=== PATIENT | female | born 1970 | race Caucasian/White ===

== ENCOUNTER → 2017-12-17 07:15 | Outpatient (CLI) | payer BC, SELFPAY ==
--- NOTE | 2017-12-17 07:15 | DT_ITS ---
This patient was seen during an EMR downtime December 15, 2017 - December 22, 2017. This patient may have a combination of paper and electronic documentation or all paper documentation. All documentation is viewable within the e-chart portion of [facility] for each patient visit.
[2017-12-20 11:05] LABS: Mucous, Urine 0 SEEN /hpf (<or=2+); Red Blood Cells-Urine 0 SEEN /hpf (0-5)
[2017-12-20 11:11] LABS: Bacteria RARE /hpf (None Seen); Color, Urine Yellow (Yellow); Glucose, Dipstick NEGATIVE (Normal); Ketone-Dipstick Negative (Negative); Leukocyte Esterase-Dipstick 500 /ul (Negative); Nitrite-Dipstick Negative (Negative); Occult Blood-Urine 10 /ul (Negative); Protein-Dipstick Negative (Negative); Squamous Epithelial Cells - UA 0-5 SEEN /hpf (5-10); Urine Bilirubin Dipstick 1 mg/dL (Negative); Urine Clarity Clear (Clear); Urine Urobilinogen Normal (Normal); White Blood Cells 0-5 SEEN /hpf (0-5)
[2017-12-22 12:36] LABS: Vitamin D,25 Hydroxy 44.5 ng/mL (29.95-100.01)
[2017-12-22 14:46] LABS: Hemoglobin 13.5 g/dl (12.0-15.0); Mean Corp Hgb Conc 32.1 g/gl (32-36); Mean Corpuscular Hgb 31.5 pg (27.0-32.0); Mean Corpuscular Volume 97.9 fL (81-99); Red Blood Count 4.29 M/mm3 (4.2-5.4); White Blood Count 5.7 K/mm3 (4.4-11.0)
[2017-12-22 14:47] LABS: Mean Platelet Vol. 10.8 fl (6.2-12.0); Platelet Count 275 K/mm3 (150-450); RBC Distribution Width CV 13.1 % (11.6-14.6); RBC Distribution Width SD 46.6 fl (35.1-43.9); Scan Indicated on CBC? Y/N NO
[2017-12-22 14:48] LABS: ALB/GLOB Ratio 1.1 RATIO (0.9-2.4); AST(SGOT) 26 U/L (15-37); Alanine Aminotransfer ALT/SGPT 25 U/L (13-56); Albumin, Serum 4.3 g/dL (3.2-5.0); Alkaline Phosphatase 57 U/L (45-117); Anion Gap 8 (5-15); BUN 17 mg/dL (7-18); Calcium,Total 9.3 mg/dL (8.5-10.1); Chloride 102 mmol/L (98-107); Cholesterol 205 mg/dL (200); Creatinine, Serum 0.81 mg/dL (0.55-1.02); EST Glomerular Filtration Rate 80 mL/min (>60); Est Glom Filt Rate - Afr Amer 97 mL/min (>60); Globulin 3.9 g/dL (2.2-4.2); Glucose 78 mg/dL (74-106); High Density Lipoprotein 90 mg/dL; Potassium 3.7 mmol/L (3.5-5.1); Protein, Total 8.2 g/dL (6.4-8.2); Sodium Level 142 mmol/L (136-145); Thyroid Stim Hormone (TSH) 2.18 uIU/mL (0.358-3.74); Triglycerides 81 mg/dL; Very Low Density Lipoprotein 16 mg/dL (5-40)
== END ==
PROVIDERS: Family Provider Internal Medicine; PCP Internal Medicine; Visit Provider Internal Medicine
DX: I10 Essential (primary) hypertension (principal); E78.5 Hyperlipidemia, unspecified; E55.9 Vitamin D deficiency, unspecified
CPT/HCPCS: 36415; 80053; 80061; 81001; 82043; 82306; 82570; 84443; 85027

== ENCOUNTER → 2018-04-22 08:11 | Outpatient (CLI) | payer BC, SELFPAY | PROVIDERS: Family Provider Internal Medicine; PCP Internal Medicine; Referring Provider Internal Medicine Gastroenterology; Visit Provider Internal Medicine Gastroenterology | DX: K51.90 Ulcerative colitis, unspecified, without complications (principal) | CPT/HCPCS: 36415; 86480 ==

== ENCOUNTER → 2018-05-18 07:21 | Outpatient (CLI) | payer BC, SELFPAY | PROVIDERS: Family Provider Internal Medicine; PCP Internal Medicine; Referring Provider Internal Medicine Gastroenterology; Visit Provider Internal Medicine Gastroenterology | DX: K51.90 Ulcerative colitis, unspecified, without complications (principal) ==

== ENCOUNTER → 2018-05-26 12:39 | Outpatient (CLI) | payer BC, SELFPAY | PROVIDERS: Family Provider Internal Medicine; PCP Internal Medicine; Referring Provider Internal Medicine Gastroenterology; Visit Provider Internal Medicine Gastroenterology | DX: K51.90 Ulcerative colitis, unspecified, without complications (principal); R19.7 Diarrhea, unspecified ==

== ENCOUNTER → 2018-05-27 07:42 | Outpatient (CLI) | payer BC, SELFPAY | PROVIDERS: Family Provider Internal Medicine; PCP Internal Medicine; Referring Provider Internal Medicine Gastroenterology; Visit Provider Internal Medicine Gastroenterology | DX: K51.90 Ulcerative colitis, unspecified, without complications (principal); R19.7 Diarrhea, unspecified | CPT/HCPCS: 87493 ==

== ENCOUNTER → 2018-07-29 11:07 | Outpatient (CLI) | payer BC, SELFPAY ==
[2018-07-31 09:40] LABS: HPV Reflexed? NOT INDICATED
--- OUTSIDE RECORDS SUMMARY | 2018-10-03 07:04 | XMS RPT_ITS ---
:1970 Author Organization [facility] Support Name Relationship Address Phone GENIE Unavailable [address] + [place] [address] MARGARITA PILLAI Unavailable [address] + [place] [address] KRISHNA VILLAGRAN Unavailable [address] + [place] [address] GENIE Unavailable [address] + [place] [address] MARGARITA PILLAI Unavailable [address] + [place] [address] KRISHNA VILLAGRAN Unavailable [address] + [place] [address] GENIE Unavailable [address] + [place] [address] MARGARITA PILLAI Unavailable [address] + [place] [address] KRISHNA VILLAGRAN Unavailable [address] + [place] [address] GENIE Unavailable [address] + [place] [address] MARGARITA PILLAI Unavailable [address] + [place] [address] KRISHNA VILLAGRAN Unavailable [address] + [place] [address] GENIE Unavailable [address] + [place] [address] MARGARITA PILLAI Unavailable [address] + [place] [address] KRISHNA VILLAGRAN Unavailable [address] + [place] [address] GENIE Unavailable [address] + [place] [address] MARGARITA PILLAI Unavailable [address] + [place] [address] KRISHNA VILLAGRAN Unavailable [address] + [place] [address] GENIE Unavailable [address] + [place] [address] MARGARITA PILLAI Unavailable [address] + [place] [address] KRISHNA VILLAGRAN Unavailable [address] + [place] [address] Care Team Providers Name Role Phone Sanju DO, Gloria Attending Unavailable Sanju DO, Gloria Referring Unavailable Sanju DO, Gloria Consulting Unavailable Janelle Giles Attending Unavailable Jabour, Juan José Attending Unavailable Jabour, Vincent Referring Unavailable Sanju, Gloria Primary Care Unavailable Sanju, Gloria Attending Unavailable Sanju, Gloria Referring Unavailable Sanju, Gloria Primary Care Unavailable Jabour, Vincent Attending Unavailable Sanju, Gloria Primary Care Unavailable Jabour, Vincent Referring Unavailable Jabour, Vincent Attending Unavailable Jabour, Vincent Referring Unavailable Sanju, Gloria Primary Care Unavailable Jabour, Vincent Attending Unavailable Sanju, Gloria Primary Care Unavailable Jabour, Vincent Referring Unavailable Jabour, Vincent Attending Unavailable Jabour, Vincent Referring Unavailable Sanju, Gloria Primary Care Unavailable PROBLEMS PROBLEMS DATE TYPE CONDITION / CODE ATTENDING STATUS SOURCE 07/31/2018 Unknown 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, Community unspecified, Hospital without Repository complications / K51.90(ICD-10) 07/29/2018 Unknown Z12.4 - Encounter Janelle Giles for screening for Community malignant neoplasm [facility] cervix / Repository Z12.4(ICD-10) 05/27/2018 Unknown R19.7 - Diarrhea, Juan José Nam Active Jayjay unspecified / Community R19.7(ICD-10) Hospital Repository 01/07/2018 Unknown I10 - Essential Sanju, Active [place] (primary) Gloria Community hypertension / Hospital I10(ICD-10) Repository PROCEDURES PROCEDURES No Procedure Records FoundRESULTS RESULTS MISCELLANEOUS LAB Collected: 07/31/2018 Status: F Source: JAYJAY PROCEDURE 2:09 PM [facility] REPOSITORY Order Comment: Test(s) Ordered: ANTONINA TPMT ENZYME TYPE CODE TESTS RESULT OUT OF RANGE REFERENCE UNITS LAB L801.1541 Normal [facility] Result Comment: Scanned image report available in EMR Performed By: #### L801.1541 #### [facility] [address] [place], [address] PAP I-G W/RFX HRHPV Collected: 07/29/2018 Status: F Source: JAYJAY 9:15 AM [facility] REPOSITORY Order Comment: CYTOLOGY INFORMATION: - CLINICAL INFORMATION: - DATE LMP/MENOPAUSE: 07/07/18 LMP - COLLECTION VIAL: Thin Prep Vial - [employer]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 of containers..01 ThinPrep Vial TYPE CODE TESTS RESULT OUT OF RANGE REFERENCE UNITS LAB L7400.0800 . Normal DIAGN Comment Result Comment: NEGATIVE FOR INTRAEPITHELIAL LESION OR MALIGNANCY. CELLULAR CHANGES ASSOCIATED WITH INFLAMMATION ARE PRESENT. LAB L7400.0900 . Normal ADEQ Comment Result Comment: Satisfactory for evaluation. Endocervical and/or squamous metaplastic cells (endocervical component) are present. LAB L7400.1400 . Normal PERFORM Comment Result Comment: Yessi Watson Pie Icer Machine LAB L7400.2575 . Normal TEST METHOD Comment Result Comment: This liquid based ThinPrep(R) pap test was screened with the use of an image guided system. LAB L7400.2600 . Normal . COMM LAB L7400.2700 . Normal PAPSMR Comment Result Comment: The Pap smear is a screening test designed to aid in the detection of premalignant and malignant conditions of the uterine cervix. It is not a diagnostic procedure and should not be used as the sole means of detecting cervical cancer. Both false-positive and false-negative reports do occur. LAB L7400.2800 . Normal HPV RFLX Comment Result Comment: The HPV DNA reflex criteria were not met with this specimen result therefore, no HPV testing was performed. Performed at: - [facility] [id number] Automatic Packer Operator: Bess Cross MD, Phone: [phone] Performed By: #### L7400.0350 #### [facility] (refer to report for specific site) refer to report for address and phone number Observed: 05/26/2018 Status: F Source: JAYJAY CDIFF (MOLECULAR) 8:00 PM [facility] REPOSITORY Cdiff-Molecular Normal Reference Range = Negative RESULTS CALLED TO KOSTAS/ 05/27/18 0916 Margareth Savage. Copy of report sent to Infection Control Printer MS#[id number] 05/27/18 0951 JANALIBERTY. C. Diff DNA Positive-Toxigenic C. Difficile DNA Detected NAAT METHOD Testing was performed using nucleic acid amplification ORGANISM 1: Toxigenic C. difficile DNA Performed By: #### M100.6796 #### [facility] [address] [place], [address] MISCELLANEOUS LAB Collected: 05/18/2018 Status: F Source: JAYJAY PROCEDURE 7:29 AM [facility] REPOSITORY Order Comment: Comments: Q [id number] 4 TUBES Test(s) Ordered: [id number] TUBES TYPE CODE TESTS RESULT OUT OF RANGE REFERENCE UNITS LAB L801.1541 Normal [facility] LAB TEST Result Comment: TEST RESULT UNITS REF INTERVAL QFT-TB Plus (Client Incubated) QuantiFERON Criteria The QuantiFERON-TB Gold Plus result is determined by subtracting the Nil value from either TB antigen (Ag) tube. The mitogen tube serves as a control for the test. QuantiFERON TB1 Ag Value 0.03 IU/mL QuantiFERON TB2 Ag Value 0.03 IU/mL QuantiFERON Nil Value 0.03 IU/mL QuantiFERON Mitogen Value >10.00 IU/mL QuantiFERON-TB Gold Plus Negative Negative The specimen received for QuantiFERON testing was incubated by the ordering institution. Specific procedures outlined in our Directory of Services and in the package insert for the QuantiFERON Gold (In Tube) test must be followed to enable for proper stimulation of cells for the production of interferon gamma. [facility] ORIGINAL REPORT ON FILE IN LAB CONTAINS ADDITIONAL TEST SITE INFORMATION. Performed By: #### L801.1541 #### [facility] [address] [place], [address] DOWNTIME REPORT Observed: 01/01/2018 Status: F Source: JAYJAY 1:11 PM [facility] REPOSITORY [facility] Medical Records Department [address] [place] [address] Downtime Report MR#: [id number] Acct: [id number] Name: KAYLYN VILLAGRAN Rep #: [id number] : 1970 47 From: Arjun Foy PCP: Gloria Bills DO Status: REG CLI This patient was seen during an EMR downtime December 15, 2017 - December 22, 2017. This patient may have a combination of paper and electronic documentation or all paper documentation. All documentation is viewable within the e-chart portion of [facility] for each patient visit. URINALYSIS, COMPLETE Collected: 12/17/2017 Status: F Source: [place] 7:31 AM [facility] REPOSITORY Order Comment: RESULT(S) PREVIOUSLY REPORTED ON MANUAL REQUISITION DURING DOWNTIME. How was Urine Obtained? CLEAN CATCH TYPE CODE TESTS RESULT OUT OF RANGE REFERENCE UNITS LAB L400.3000 Yellow COLOR Normal Yellow LAB L400.3050 Clear Normal CLARITY Clear LAB L400.3200 Normal mg/dl Normal GLUCOSE, UR NEGATIVE LAB L400.3300 Negative mg/dL High 1 BILIRUBIN URINE Result Comment: COLOR OF URINE MAY AFFECT DIPSTICK RESULTS. LAB L400.3400 Negative mg/dl Normal KETONE UR Negative LAB L400.3465 1.002-1.030 Normal SP.GR. DIPSTX 1.010 LAB L400.3550 5.0 - 8.0 pH Normal UR 7.0 LAB L400.3600 Negative mg/dl Normal PROT DIPSTX Negative LAB L400.3700 Normal mg/dl Normal UROBILI Normal LAB L400.3750 Negative Normal NITRITE UR Negative LAB L400.3780 Negative /ul High OCCULT 10 BLOOD-UR LAB L400.3800 Negative /ul High LEUK ESTERASE 500 LAB L400.4050 0-5 /hpf Normal WBC 0-5 SEEN LAB L400.4100 0-5 /hpf Normal RBC-UA 0 SEEN LAB L400.4150 5-10 /hpf Normal SQUAM EPI 0-5 SEEN LAB L400.4300 None Seen /hpf Normal BACTERIA RARE LAB L400.4350 <or=2+ /hpf Normal MUCUS, URINE 0 SEEN Performed By: #### L400.0001 #### [facility] [address] [facility] [place], [place], [address] VITAMIN D,25 HYDROXY Collected: 12/17/2017 Status: F Source: [place] 7:15 AM [facility] REPOSITORY TYPE CODE TESTS RESULT OUT OF RANGE REFERENCE UNITS LAB L506.1000 29.95-100.01 ng/mL Normal Vitamin D 44.5 25-OH Result Comment: Vitamin D 25(OH) Status Range Deficiency <20 ng/mL (50nmol/L) Insuffciency 20 - 30 ng/mL (50 - 75 nmol/L) Sufficiency 30 - 100 ng/mL (75 - 250 nmol/L) Toxicity >100 ng/mL (>250 nmol/L) RESULT(S) PREVIOUSLY REPORTED ON MANUAL REQUISITION DURING DOWNTIME. Performed By: #### L506.1000 #### [facility] [address] [facility] [place], [address] COMPREHENSIVE METABOLIC Collected: 12/17/2017 Status: F Source: [facility] 7:15 AM [facility] REPOSITORY Order Comment: RESULT(S) PREVIOUSLY REPORTED ON MANUAL REQUISITION DURING DOWNTIME. TYPE CODE TESTS RESULT OUT OF RANGE REFERENCE UNITS LAB L501.0100 74-106 mg/dL Normal GLU 78 Result Comment: Please note revised GLUCOSE reference range effective 2017. LAB L501.1000 7-18 mg/dL Normal BUN 17 LAB L501.1100 0.55-1.02 mg/dL Normal CREAT,SERUM 0.81 Result Comment: The validity of the calculated GFR AND GFRAA in patients over 70 years has not been determined. Clinical correlation is essential. LAB L501.1110 >60 mL/min Normal EST GFR 80 LAB L501.1115 >60 mL/min Normal EST GFR - AA 97 LAB L501.1300 10-20 RATIO High BUN/CRE 21.0 LAB L501.1500 6.4-8.2 g/dL Normal T PROT 8.2 LAB L501.1800 3.2-5.0 g/dL Normal ALB 4.3 LAB L501.1950 2.2-4.2 g/dL Normal GLOB 3.9 LAB L501.2000 0.9-2.4 RATIO Normal A/G 1.1 LAB L501.2200 8.5-10.1 mg/dL Normal CA 9.3 LAB L501.4100 15-37 U/L Normal AST 26 LAB L501.4305 45-117 U/L Normal ALK P 57 LAB L501.4405 13-56 U/L Normal ALT 25 LAB L501.4600 0.20-1.00 mg/dL Normal T BILI 0.50 LAB L501.5300 136-145 mmol/L Normal NA 142 LAB L501.5600 3.5-5.1 mmol/L Normal K 3.7 LAB L501.5900 98-107 mmol/L Normal CL 102 LAB L501.6100 21.0-32.0 mmol/L Normal CO2 32.0 LAB L501.6200 5-15 Normal GAP 8 Performed By: #### L500.4050, L500.4100, L501.9520 #### [facility] [address] [place], [address] LIPID PROFILE Collected: 12/17/2017 Status: F Source: [place] 7:15 AM [facility] REPOSITORY Order Comment: RESULT(S) PREVIOUSLY REPORTED ON MANUAL REQUISITION DURING DOWNTIME. TYPE CODE TESTS RESULT OUT OF RANGE REFERENCE UNITS LAB L501.4900 200 mg/dL High CHOL 205 Result Comment: <200 mg/dL Desirable 200-240 mg/dL Borderline >240 mg/dL High Risk LAB L501.5000 mg/dL Normal TRIG 81 Result Comment: The drugs N-Acetylcysteine and Metamizole may falsely depress this assay. Serum Triglycerides Reference Interval Normal <150 mg/dL Borderline high 150 - 199 mg/dL High 200 - 499 mg/dL Very High > or = 500 mg/dL LAB L501.6400 mg/dL Normal HDL 90 Result Comment: The drugs N-Acetylcysteine and Metamizole may falsely depress this assay. Reference Range HDL <40 mg/dL Low HDL Cholesterol HDL >or= 60 mg/dL High HDL Cholesterol LAB L501.6500 0-130 mg/dL Normal LDL 99 LAB L501.6600 5-40 mg/dL Normal VLDL 16 Performed By: #### L500.4050, L500.4100, L501.9520 #### [facility] [address] [place], [place], [address] THYROID STIM HORMONE Collected: 12/17/2017 Status: F Source: [facility]AYJ[facility] (TSH) 7:15 AM [facility] REPOSITORY Order Comment: RESULT(S) PREVIOUSLY REPORTED ON MANUAL REQUISITION DURING DOWNTIME. TYPE CODE TESTS RESULT OUT OF RANGE REFERENCE UNITS LAB L501.9520 0.358-3.74 uIU/mL Normal TSH 2.18 Performed By: #### L500.4050, L500.4100, L501.9520 #### [facility] [address] [place], [place], [address] CBC-COMPLETE BLOOD CNT Collected: 12/17/2017 Status: F Source: [facility] NO DIFF 7:15 AM [facility] REPOSITORY Order Comment: RESULT(S) PREVIOUSLY REPORTED ON MANUAL REQUISITION DURING DOWNTIME. TYPE CODE TESTS RESULT OUT OF RANGE REFERENCE UNITS LAB L100.1000 4.4-11.0 K/mm3 Normal WBC 5.7 LAB L100.1200 4.2-5.4 M/mm3 Normal RBC 4.29 LAB L100.1300 12.0-15.0 g/dl Normal HGB 13.5 LAB L100.1400 37-47 % Normal HCT 42.0 LAB L100.1500 81-99 fL Normal MCV 97.9 LAB L100.1600 27.0-32.0 pg Normal MCH 31.5 LAB L100.1700 32-36 g/gl Normal MCHC 32.1 LAB L100.1810 11.6-14.6 % Normal RDW CV 13.1 LAB L100.1820 35.1-43.9 fl High RDW SD 46.6 LAB L100.1900 150-450 K/mm3 Normal PLT 275 LAB L100.2000 6.2-12.0 fl Normal MPV 10.8 Performed By: #### L100.0500 #### [facility] [address] [place], [address] MICROALB:CREAT Collected: 12/17/2017 Status: F Source: JAYJAY RATIO,RANDOM UR 7:15 AM [facility] REPOSITORY Order Comment: RESULT(S) PREVIOUSLY REPORTED ON MANUAL REQUISITION DURING DOWNTIME. TYPE CODE TESTS RESULT OUT OF RANGE REFERENCE UNITS LAB L501.1200 NO RANGE EST. mg/dL Normal UR CREAT 190.00 LAB L502.0500 NO RANGE EST. mg/L Normal 13.0 MICROALBUMIN ,UR LAB L502.0600 <30 mg/g CRE mg/g CRE Normal 6.0 MALB:CREAT Performed By: #### L502.0250 #### [facility] [address] [place], [address] ALLERGIES ALLERGIES DATE TYPE / CODE NAME / CODE REACTION SEVERITY SOURCE 02/21/2015 Drug No Known Unknown [facility] Allergy/4160 Allergies/F00 Hospital 63829(SNOMED 6291342(RXNOR Repository CT) M) ENCOUNTERS ENCOUNTERS ADMIT/DISCHARGE ACCOUNT ADMITTING ENCOUNTER LOCATION SOURCE NUMBER CLASS 07/31/2018 [id number] Ambulatory [place]jay [place] 5 [facility] ing:MTLAB Repository 07/29/2018 [id number] Ambulatory [place] 9 [facility] ing:LABSPEC Repository 07/29/2018 [id number] Ambulatory Building:[facility] [place] Practices Repository 05/27/2018 [id number] Ambulatory [place] Jayjay 3 [facility] ing:LABSPEC Repository 05/26/2018 [id number] Ambulatory [place] 9 [facility] ing:LAB.FUTUR Repository E 05/18/2018 [id number] Ambulatory [place]jay [place] 7 [facility] ing:LAB Repository 04/22/2018 [id number] Ambulatory [place] Jayjay 0 [facility] ing:LAB Repository 12/17/2017 [id number] Ambulatory Jayjay [place] 0 [facility] ing:LAB Repository PAYERS PAYERS ENCOUNTER GUARANTOR PAYER SUBSCRIBER SOURCE 07/31/2018 KRISHNA Saab Primary KAYLYN Ro [id number] Insurance:ANTHEMPolic STEINERDOB: [facility] PARKER y Number: [id number] [id number] Repository [address]Lfn: (330) Date:5480-98-87ND [phone] (HP) [address]VPYSWQS, [place] [address]JK: 07/31/2018 Secondary NOT GIVENUNK [place] Insurance:SELF PAY [facility] Number: Effective Repository Date:2018-07-31 07/29/2018 KRISHNA Saab Primary KAYLYN [place] Jayjay [id number] Insurance:ANTHEMPolic STEINERDOB: [facility] Number: [id number], [place] [id number] Repository [address]Wyy: (330) Date:1334-21-57CG [phone] () 329175XCDVERF, [place] [address]KW: 07/29/2018 Secondary NOT GIVENUNK Jayjay Insurance:SELF PAY [facility] Number: Effective Repository Date:2018-07-29 07/29/2018 Kaylyn Primary Kaylyn M OHIP Practices SteinerDOB: Insurance:Galateo SteinerDOB: Repository [id number] /[facility] Number: [id number] [place] [id number] 3 [place], [place] Date:5152-40-07JjsqHerrin, [place] [address]Vbx: (330) Name:[address] [address]Sef: [id number] Hopper [phone] (HP) (NS)Tel: [phone]: ([phone] 07/29/2018 Secondary Krishna OHIP Practices Insurance:Medical SteinerDOB: Repository [employer] [facility] [place] [id number] Number: [address] [id number] [place], [place] Date: - [address]Uaj: ([id number] [phone] () Name:[facility] Gurinder [address] [place] [id number]: 05/27/2018 KRISHNA A Primary KAYLYN Ro [id number] Insurance:ANTHEMPolic STEINERDOB: Community PARKER y Number: [id number] Medical [id number] Repository [address]Ysl: (330) Date:8908-74-25UO [phone] () [id number] [place] [address]FB: 05/27/2018 Secondary NOT GIVENUNK Jayjay Insurance:SELF PAY [facility] Number: Effective Repository Date:2018-05-27 05/26/2018 KRISHNA A Primary KAYLYN Ro [id number] Insurance:ANTHEMPolic STEINERDOB: Community PARKER y Number: [id number] Medical [id number] Repository [address]Vjn: (330) Date:2096-21-87XF [phone] () [id number] [place] [address]NQ: 05/26/2018 Secondary NOT GIVENUNK [place] Insurance:SELF PAY [facility] Number: Effective Repository Date:2018-05-26 05/18/2018 KRISHNA A Primary KAYLYN Ro [id number] Insurance:ANTHEMPolic STEINERDOB: Community PARKER y Number: [id number], [place] [id number] Repository [address]Vdj: (330) Date:5647-20-22ZM [phone] () [id number] [place] [address]QN: 05/18/2018 Secondary NOT GIVENUNK [place] Insurance:SELF PAY [facility] Number: Effective Repository Date:2018-05-18 04/22/2018 KRISHNA A Primary KAYLYN [id number] Insurance:ANTHEMPolic STEINERDOB: Community PARKER y Number: [id number], [place] [id number] Repository [address]Wok: (330) Date:2551-98-35HN [phone] () 081951WUICEXC, [place] [address]HU: 04/22/2018 Secondary NOT GIVENUNK Jayjay Insurance:SELF PAY [facility] Number: Effective Repository Date:2018-04-16 12/17/2017 KRISHNA Kaiser Primary KAYLYN Ro [id number] Insurance:ANTHEMPolic STEINERDOB: Community PARKER y Number: [id number], [place] [id number] Repository [address]Npw: (330) Date:4741-03-55RA [phone] () [id number], [place] [address]ES: 12/17/2017 Secondary NOT GIVENUNK Jayjay Insurance:SELF PAY [facility] Number: Effective Repository Date:2017-12-17
--- OUTSIDE RECORDS SUMMARY | 2018-10-03 07:04 | XMS RPT_ITS | Continuity of Care Document ---
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 difficile colitis (A04.72, 008.45) Status: Active CHEST PAIN (R07.9, 786.59) Status: Active Elevated liver enzymes (R74.8, 790.4) Status: Active Encounter for immunization (Z23, V03.89) Status: Active FAMILY HISTORY OF ISCHEMIC HEART DISEASE (Z82.49, V17.3) Status: Active FATIGUE (R53.83, 780.79) Status: Active Hyperlipidemia, unspecified (E78.5, 272.4) Status: Active Hypertension, benign (I10, 401.1) Status: Active Influenza vaccination declined (Renamed from Refused influenza vaccine) (Z28.21, V64.06) Comments: getting it at work tues Status: Active Need for prophylactic vaccination and inoculation against influenza (Z23, V04.81) Status: Active Non-smoker (Z78.9, V49.89) Status: Active Palpitations (R00.2, 785.1) Status: Active Physical exam (Z00.00, V70.9) Status: Active Physical exam WITHOUT abnormal findings (Renamed from Encounter for routine adult health examination without abnormal findings) (Z00.00, V70.0) Status: Active Pregnancies () Comments: 0. Status: Active Ulcerative colitis (K51.90, 556.9) Comments: last scope 2013 Status: Active Ulcerative Colitis Status: Active Vaccine for ppisjsnczi-kukopvv-xtpcxjwoq with poliomyelitis (Z23, V06.3) Status: Active Vitamin D deficiency (E55.9, 268.9) Status: Active Medications Name Dates Details Atorvastatin Calcium 20 MG Oral Tablet 1 tab Tablet qd for 90 days Quantity: 90 {Tablet} Refills: 3 Ordered:19-Dec-2017 Judith Bills DO, DO, Kathleen Start : 19-Dec-2017 Active BALSALAZIDE DISODIUM, 750MG (Oral Capsule) 3 caps tid for 0 days Refills: 0 Ordered:06-Oct-2013 Judith Bills DO, DO, Kathleen Start : 06-Oct-2013 Active Comments:Dr. Gallagher Calcium 600 1500 (600 Ca) MG Oral Tablet ONE DAILY (1500 (600 Ca) MG) Active Fish Oil 1200 MG Oral Capsule ONE DAILY (1200 MG) Active Mesalamine 4 GM Rectal Enema 1 qhs (4 GM) Active Multivitamin Adult Oral Tablet Chewable ONE DAILY Active PredniSONE 10 MG Oral Tablet 2 qd (10 MG) Active Valsartan-Hydrochlorothiazide 160-25 MG Oral Tablet 1 tab Tablet qd for 90 days Quantity: 90 {Tablet} Refills: 3 Ordered:19-Dec-2017 Judith Bills DO, DO, Kathleen Start : 19-Dec-2017 Active Vancomycin HCl 125 MG Oral Capsule qid (125 MG) Active Vitamin D 2000 UNIT Oral Capsule oneDAILY (2000 UNIT) Active Vitamin E 100 UNIT Oral Capsule 4 qd (100 UNIT) Active DIOVAN HCT, 160-25MG (Oral Tablet) 1 (one) Tablet qd for 90 days Refills: 0 Ordered:25-Sep-2012 Indira Valdes LPN Start : 22-May-2012 End : 25-Sep-2012 Inactive VITAMIN D3, 2000UNIT (Oral Capsule) 1 Capsule qd for 360 days Refills: 0 Ordered:06-Oct-2013 Indira Valdes NANCY Start : 29-May-2012 End : 24-May-2013 Inactive EMOQUETTE, 0.15-30MG-MCG (Oral Tablet) 1 (one) Tablet qd for 90 days Refills: 0 Ordered:29-May-2012 Judith Bills DO, DO, Kathleen Start : 29-May-2012 End : 29-May-2012 Discontinued PROGESTERONE, 100MG (Oral Capsule) 3 (three) Capsule Capsule qhs for 30 days Refills: 0 Ordered:09-May-2017 Judith Bills DO, DO, Kathleen Start : 02-Jun-2015 End : 09-May-2017 Discontinued Comments:This order discontinued per [facility]. Allergies and Adverse Reactions Name Dates Details No Known Drug Allergies (Allergy) Onset: 22-May-2012 Status: Active Procedures Procedure Dates Details Colonoscopy Completed Comments: 04/08/18 D&C Completed Comments: 02/25 Tonsillectomy Completed Comments: childhood Date Value Details 01-Jan-2018 Downtime Report Result: Comments: See Note; NOTES: [facility] Medical Records Department [address] [place] [address] Downtime Report MR#: [id number] Acct: [id number] Name: KAYLYN VILLAGRAN Rep #: [id number] : 1970 47 From: Arjun Foy PCP: Gloria Bills DO Status: REG CLI This patient was seen during an EMR downtime December 15, 2017 - December 22, 2017. This patient may have a combination of paper and electronic documentation or all paper documentation. All documentation is viewable within the e-chart portion of [facility] for each patient visit. 22-Apr-2017 DIAG MAMM W/CAD, BILAT Result: Comments: See Note; NOTES: [facility] Imaging Services [address] [place] [address] DIAG MAMM W/CAD, BILAT MR#: [id number] Acct: [id number] Name: KAYLYN VILLAGRAN Rep #: [id number] : 1970 F 46 From: Oliver Shine MD PCP: Gloria Bills DO Status: REG CLI Study: DIAG MAMM W/CAD, BILAT Date of Exam: 04/22/17 Exam# [id number] Ordering Dr: Janelle Giles MD MAMMOGR APHY - BILATERAL DIAGNOSTIC REASON FOR EXAM: Female, 46 years old. Abnormal screening mammogram. PERTINENT HISTORY: TECHNIQUE: Compression magnification views of both breasts were obtained. CAD: Full Field Digital Mammography with Computer Added Detection was performed. COMPARISON: Comparison is made with prior mammogram dated April 14, 2017. FINDINGS: Breast Composition: The breasts are heterogeneously dense, which may obscure small masses. The calcifications in the inferior medial aspect of the left breast appear to be vascular in nature. The calcificatio ns in the right breast are visualized. No focal clustering is seen. No other significant abnormalities are identified. HPBI/DIAG MAMM W/CAD, SARA AT IMPRESSION: Stable bilateral diagnostic mammogram. One year follow-up recommended. (A) ASSESSMENT CATEGORY: BIRADS Category 2: Benign. A letter regarding these r esults will be sent to the patient by the facility within 30 days. Approximately 10% of breast cancers are not detected by mammography. A normal mammogram should not delay biopsy of a clinically suspic ious abnormality. Electronically Signed: Oliver Shine MD at 9:18 EDT Tel [phone], Service support , CC: Janelle Giles MD; Gloria Bills DO Brand Analyst: Signed 14-Apr-2017 Breast Limited Unilateral Result: Comments: See Note; NOTES: [facility] Imaging Services [address] [place] [address] Breast Limited Unilateral MR#: [id number] Acct: [id number] Name: KAYLYN VILLAGRAN Rep #: [id number] : 1970 F 46 From: Marysol Conroy MD PCP: Gloria Bills DO Status: REG CLI Study: Breast Limited Unilateral Date of Exam: 04/14/17 Exam# [id number] Ordering Dr: Janelle Giles MD STUDY: ULTRASOUND BREAST - RIGHT REASON FOR EXAM: Female, 46 years old. AREA OF PALP LUMP IN RIGHT BREAST SLIGHTLY INVERTED NIPPLES HX OF 45# WEIGHT LOSS IN 15 MONTHS TECHNIQUE: Axial and longitudinal image s of the RIGHT breast were performed with a high resolution ultrasound transducer. COMPARISON: Apr 14 2017 2:37pm FINDINGS: RIGHT Breast: There is a retroareolar lesion. The lesion measures 1 x 1.5 x 0.4 cm in size. Most likely represent a lymph node. Posterior Enhancement: Yes. Posterior Shadowing: None. Margins: Sharp and smooth. Echogenicity: Isoechoic. Comp ression effect on Shape: No change. IMPRESSION: There is a retroareolar lesion. The lesion measures 1 x 1.5 x 0.4 cm in size. Most likely represent a lymph node. __ ASSESSMENT CATEGORY: BIRADS Category 0: Incomplete. Need additional imaging evaluation. Magnification mammogram views would be recommended. A letter regarding these re sults will be sent to the patient by the facility within 30 days. Electronically Signed: Marysol Conroy MD at 12:34 EDT Tel , Service support , STUDY: ULTRASOUND BREAST - LEFT REASON FOR EXAM: Female, 46 years old. An inverted nipple. TECHNIQUE: Axial and longitudinal images of the LEFT breast were performed with a high resolution ultrasound transducer. COMPARISON: None. FINDINGS: LEFT Breast: Mildly dilated retroareolar ducts are noted. There is no abnormal mass. US/Breast Limited Unilateral IMPRESSION: Dilated retroareolar ducts. ASSESSMENT CATEGORY: BIRADS Category 0: Incomplete. Need additional imaging e valuation. Spot magnification views of the medial aspect of the left breast. A letter regarding these results will be sent to the patient by the facility within 30 days. Electronically Signed: Marysol horta MD at 12:36 EDT Tel , Service support , CC: Janelle Giles MD; Gloria Bills DO Brand Analyst: Signed 14-Apr-2017 DIAG MAMM W/CAD, BILAT Result: Comments: See Note; NOTES: [facility] Imaging Services [address] [place] [address] DIAG MAMM W/CAD, BILAT MR#: [id number] Acct: [id number] Name: KAYLYN VILLAGRAN Silver Rep #: [id number] : 1970 F 46 From: Marysol Conroy MD PCP: Gloria Bills DO Status: REG CLI Study: DIAG MAMM W/CAD, BILAT Date of Exam: 04/14/17 Exam# [id number] Ordering Dr: Janelle Giles MD MAMMOGRAPHY - BILATERAL SCREENING REASON FOR EXAM: Female, 46 years old. Routine annual screening examination. PERTINENT HISTORY: NO FAM HX RT BREAST LUMP FOUND BY PT 3WEEKS AGO-NOT FELT TODAY BUT AREA MARKED WIT H A TRIANGLE MARKER. BILAT NIPPLE DIMPLING IN BOTH AREOLAS NO SX PAST PROGESTERONE USE FOR 2 YRS TECHNIQUE: Digital bilateral breast yo (3D mammographic acquisition) in the CC and MLO projections. 2- D mediolateral oblique (MLO) and craniocaudad (CC) views of both breasts were obtained. CAD: Full Field Digital Mammography with Computer Added Detection was performed. COMPARISON: None. FINDINGS: Breast Composition: The breasts are heterogeneously dense, which may obscure small masses. There is a cluster of microcalcification in the central part of the right celso ast seen on the CC view for which further evaluation by magnification views and ultrasound would be recommended. There is a cluster of microcalcification in the medial aspect of the left breast seen on CC view for which further evaluation by magnification views and ultrasound would be recommended. No other significant abnormalities are identified. 0025 HPBI/DIAG MAMM W/CAD, BILAT IMPRESSION: Further imaging evaluation recommended, as described above. (E) ASSESSMENT CATEGORY: BIRADS Category 0: Incomplete. Nee d additional imaging evaluation. A letter regarding these results will be sent to the patient by the facility within 30 days. Approximately 10% of breast cancers are not detected by mammography. A norm al mammogram should not delay biopsy of a clinically suspicious abnormality. [id number] Electronically Signed: Marysol Conroy MD at 12:00 EDT Tel , Service support , CC: Janelle Giles MD; Gloria Bills DO Brand Analyst: Signed 23-May-2016 Bilat Scrn Digital AND CAD Result: Comments: See Note; NOTES: [facility] Imaging Services [address] [place] [address] Verdana 4d Bilat Scrn Digital AND CAD MR#: [id number] Acct: [id number] Name: KAYLYN VILLAGRAN Rep #: [id number] : 1970 F 45 From: Oliver Shine MD PCP: Gloria Bills DO Status: REG CLI Study: [place] Digital AND CAD Date of Exam: 05/23/16 Exam# [id number] Ordering Dr: Janelle Sparrow MD MAMMOGRAPHY - BILATERAL SCREENING REASON FOR EXAM: Female, 45 years old. Routine annual screening examination. PERTINENT HISTORY: Non- contributory. TECHNIQUE: Digital bilateral breast t margaret (3D mammographic acquisition) in the CC and MLO projections. 2-D mediolateral oblique (MLO) and craniocaudad (CC) views of both breasts were obtained. CAD: Full Field Digital Mammography with Comput er Added Detection was performed. COMPARISON: Comparison is made with prior study dated April 18, 2015 and January 26, 2014. FINDINGS: Breast Composition: The breasts are heterogeneously dense, which may obscure small masses. There are no dominant masses or suspicious calcifications. No other significant abnormalities are identified. There has been no significant change since the prior study. [facility]/Nelson Crockett Digital AND CAD IMPRESSION: Stable bilateral screening mammogram. Yearly follow-up mammogram recom mended. (A) ASSESSMENT CATEGORY: BIRADS Category 1: Negative. A letter regarding these results will be sent to the patient by the facility within 30 days. Approxim ately 10% of breast cancers are not detected by mammography. A normal mammogram should not delay biopsy of a clinically suspicious abnormality. [id number] Electronically Signed: Oliver Shine MD 201 12/22/09 at 9:46 EST Tel [phone], Service support [phone], CC: Janelle Giles MD; Gloria Bills DO Brand Analyst: Signed 01-Dec-2015 ELECTROCARDIOGRAM, COMPLETE (ECG) (75039) Result: [MEASUREMENTS ANALYSIS] Date of Test: 12/01/2015 07:39:32; Heart Rate: 64; AL Interval: 114; QRS: 96; QT Interval: 380; Corrected QT Interval (QTc): 387; P Wave [place]: 35; QRS Wave [place]: 37; T Wave [place]: 54; Blood Pressure: 122/78 [ECG DIAGNOSTIC STATEMENTS] Date of Test: 12/01/2015 07:39:32; Summary: Sinus Rhythm -Short AL syndrome Evelia = 114BORDERLINE RHYTHM 18-Apr-2015 Bilat Scrn Digital AND CAD Result: Comments: See Note; NOTES: [facility] Imaging Services [address] [place] [address] Breast Imaging Report MR#: [id number] Acct: [id number] Name: KAYLYN VILLAGRAN Rep #: [id number] : 1970 F 44 From: Oliver Shine MD PCP: Gloria Bills DO Status: REG CLI Study: Bilat Scrn Digital AND CAD Date of Exam: 04/18/15 Exam# [id number] Ordering Dr: Isidra Giles MD MAMMOGRAPHY - BILATERAL SCREENING REASON FOR EXAM: Female, 44 years old. Routine annual screening examination. PERTINENT HISTORY: Non- contributory. TECHNIQUE: Digital examination. Mediol ateral oblique (MLO) and craniocaudad (CC) views of both breasts were obtained. CAD: CAD was performed on this study. COMPARISON: Comparison is made with prior study dated January 26, 2014 and December 01, 2012. FINDINGS: Breast Composition: The breasts are heterogeneously dense, which may obscure small masses. There are no dominant masses or suspicious calcific ations. No other significant abnormalities are identified. There has been no significant change since the prior study. IMPRESSION: Stable bilateral screening m ammogram. Yearly follow-up recommended. (A) ASSESSMENT CATEGORY: BIRADS Category 1: Negative. A letter regarding these results will be sent to the patient by [facility] facility within 30 days. Approximately 10% of breast cancers are not detected by mammography. A normal mammogram should not delay biopsy of a clinically suspicious abnormality. Electronically Si gned: Oliver Shine MD at 7:55 EDT Tel [phone], Service support [phone], CC: Janelle Giles MD; Gloria Bills DO Brand Analyst: Signed 06-Mar-2015 Operative Report Result: Comments: See Note; NOTES: [facility] Medical Records Department [address] [place] [address] Operative Report MR#: [id number] Acct: [id number] Name: TYSHAWNKAYLYN p #: [id number] : 1970 44 From: Janelle Giles MD PCP: Gloria Bills DO Status: [facility] DATE OF SERVICE: 02/28/2015 DATE OF SERVICE: February 28, 2015. PREOPERATIVE DIAGNOSES: Irregul ar menses, thickened endometrium. POSTOPERATIVE DIAGNOSES: Irregular menses, thickened endometrium. PROCEDURE: D and C, hysteroscopy that being diagnostic. SURGEON: Janelle Giles M.D. [facility] ED BLOOD LOSS: Minimal. FLUIDS: Lactated Ringer's. MEDICATIONS: Include cefotetan IV preoperatively and 1% local lidocaine to the cervix, 10 mL total. ANESTHESIA: MAC. URINE: Straight tasha terization. INDICATION: The patient is a 44-year-old white female who presents to the office with ongoing bleeding and irregular menstrual cycles. Despite the active bleeding that she was undergoing , it was noted that she had thickened endometrium per ultrasound. The patient was consented for and accepted the risks of procedures of D and C, hysteroscopy. We reviewed the preoperative preparation , the intraoperative procedures and the postoperative recovery. All consents obtained. DESCRIPTION OF PROCEDURE: On the day of surgery, the patient was taken to the surgery suite where she underwent a MAC anesthetic and after noting to be adequate, she was placed in dorsal lithotomy position via the Kervin stirrups, prepped, draped in the normal sterile fashion. Weighted speculum to the vagina. Anterior lip of the cervix was grasped and elevated. The uterus was sounded to 9.5 cm and then just a slight anteflexed position. Cervical os was somewhat difficult to dilate and the canal almost seem ed bearing more towards the right as opposed to being a straight canal, the hysteroscope being a 5-mm hysteroscope was placed into the endometrial cavity, but it was noted that there was just stiff ti ssue likely in relationship to disseminated fibroid-like tissue impinging upon that canal. There was ____ flimsy tissue noted compared to what was noted on the ultrasound. Sharp curettage revealed im mediate uterine cry and descend again, notation of this stiff type of tissue that was not very malleable. The sharp curettage was followed by polyp forceps removal of any ____ tissue and this was sent away for pathological evaluation. Replacement of the hysteroscope into the endometrial cavity did not reveal any new entities and the little tissue that we did note at the beginning of the case had b een removed. The hysteroscope was removed. All instruments from the vagina were removed. Sponge and instrument counts correct x2. The patient awakened in stable condition, to be discharged home. Will follow up in the office in 1-2 weeks' time. Janelle Giles MD T: NTS JOB: [id number] 03/06/15 0714 <Electronically signed by Janelle Giles MD> Date Janelle Giles MD Cosigner Signature (If Indicated): Date CC: Janelle Giles MD; Gloria Bills DO Date Dictated: 5 1336 Date Transcribed: 03/02/15 1336 Brand Analyst: Signed 28-Feb-2015 Operative Report Result: Comments: See Note; NOTES: [facility] Medical Records Department [address] [place] [address] Operative Report 08/7 MR#: [id number] Acct: [id number] Name: KAYLYN TRINH Rep #: [id number] : 1970 44 From: Janelle Giles MD PCP: Gloria Bills DO Status: REG SDC Y Location: [place] [address] Operative Report (Blank) Date of Procedure: 02/28/15 Preop: Irregular menses, thickened endometrium Postop: Same Procedure: D and C, hysteroscopy, diagnostic Surgeon: Tisha EBL: minimal Fluids: Lactated ringers Meds: Cefotetan and 1% Lidocaine loc ally - 10cc Anesthesia: MAC Urine: straight cath 02/28/151617 <Electronically signed by Janelle Giles MD> Date Janelle Giles MD CC: Janelle Giles MD; Gloria Bills DO Signed 28-Feb-2015 Discharge Instruction Result: Comments: See Note; NOTES: [facility] Medical Records Department [address] [place] [address] Instructions for Home/Discharge Instructions 02/28/15 1615 MR#: [id number] ct: [id number] Name: KAYLYN VILLAGRAN Rep #: [id number] : 1970 44 From: Janelle Giles MD PCP: Gloria Bills DO Status: REG SD Discharge Diet: No Restrictions Discharge Activity: Retur n to Normal Activity, May Shower, May Take a Tub Bath - in 2 weeks. Return to work on:: 03/01/15 May shower in (days): 0 - Now May resume sexual activity in: 1 week Weight Bearing Status: Full weigh t bearing Lifting Restrictions: none Cleanse incision/area with: Soap AND Water Allergies/Adverse Reactions: Allergies No Known Allergies Allergy (Verified 02/21/15 15:27) Medications to take at Discharge Atorvastatin Calcium [Lipitor] 20 mg PO QHS 02/21/15 Balsalazide Disodium 6.75 gm PO BID 02/21/15 Calcium Citrate/Vitamin D3 [Calcium Citrate - Vit D Tablet] 1 each PO DAILY 02/21/15 C holecalciferol (Vitamin D3) [Vitamin D3] 0 unit PO DAILY 02/21/15 Multivitamins,Therapeutic [Multivitamin] 1 tablet PO DAILY 02/21/15 [facility]-3 Fatty Acids [Fish Oil] 300 mg PO DAILY 02/21/15 Valsartan /Hydrochlorothiazide [Diovan Hct 160-25 MG Tablet] 1 tablet PO DAILY 02/21/15 Please Follow Up With: Janelle Giles When: 1-2 weeks postop 02/28/15 1616 <Electronically signed by Janelle bhatt MD> Date Janelle Giles MD CC: Gloria Bills 25-Nov-2014 EKG (13294) Comments: nsr no acute chgn Result: [MEASUREMENTS ANALYSIS] Date of Test: 11/25/2014 07:52:19; Heart Rate: 68; AL Interval: 118; QRS: 92; QT Interval: 374; Corrected QT Interval (QTc): 388; P Wave [place]: 33; QRS Wave [place]: 35; T Wave [place]: 30; Blood Pressure: 118/64 [ECG DIAGNOSTIC STATEMENTS] Date of Test: 11/25/2014 07:52:19; Summary: Sinus Rhythm -Short AL syndrome Evelia = 118BORDERLINE RHYTHM [MEASUREMENTS ANALYSIS] Date of Test: 07:51:53; Heart Rate: 65; AL Interval: 116; QRS: 92; QT Interval: 372; Corrected QT Interval (QTc): 380; P Wave [place]: 36; QRS Wave [place]: 35; T Wave [place]: 31; Blood Pressure: 118/64 [ECG DIAGNOST IC STATEMENTS] Date of Test: 11/25/2014 07:51:53; Summary: Sinus Rhythm -Short AL syndrome Evelia = 116BORDERLINE RHYTHM Social History Name Dates Details Alcohol Use: Occasional alcohol use. Status: Active No Caffeine Use Status: Active No Drug Use Status: Active Tobacco use: Never smoker. Status: Active Smoking Status Name Dates Details Never smoker Vital Signs Date Test Result Details [id number] Pulse 93 /min Comments: Pattern: Regular Respiration Rate 18 /min Comments: Pattern: Unlabored O2 SAT 98 % Comments: Room air BP Systolic 118 mm[Hg] Comments: Patient Position: Sitting; Cuff Location: Left Arm; Cuff Size: Large BP Diastolic 78 mm[Hg] Comments: Patient Position: Sitting; Cuff Location: Left Arm; Cuff Size: Large Weight 143.125 lb Height 66.25 in Body Mass Index Calculated 22.93 kg/m2 Body Surface Area Calculated 1.74 m2 :24 Pulse 95 /min Comments: Pattern: Regular Respiration Rate 18 /min Comments: Pattern: Unlabored O2 SAT 97 % Comments: Room air BP Systolic 122 mm[Hg] Comments: Patient Position: Sitting; Cuff Location: Left Arm; Cuff Size: Standard BP Diastolic 78 mm[Hg] Comments: Patient Position: Sitting; Cuff Location: Left Arm; Cuff Size: Standard Weight 137.25 lb Height 66.25 in Body Mass Index Calculated 21.99 kg/m2 Body Surface Area Calculated 1.71 m2 :27 Pulse 72 /min Comments: Pattern: Regular Respiration Rate 18 /min Comments: Pattern: Unlabored O2 SAT 97 % Comments: Room air BP Systolic 122 mm[Hg] Comments: Patient Position: Standing; Cuff Location: Left Arm; Cuff Size: Standard BP Diastolic 62 mm[Hg] Comments: Patient Position: Standing; Cuff Location: Left Arm; Cuff Size: Standard Weight 131.5 lb Height 66.25 in Body Mass Index Calculated 21.06 kg/m2 Body Surface Area Calculated 1.68 m2 :55 Pulse 78 /min Comments: Pattern: Regular Respiration Rate 18 /min Comments: Pattern: Unlabored O2 SAT 97 % Comments: Room air BP Systolic 110 mm[Hg] Comments: Patient Position: Sitting; Cuff Location: Left Arm; Cuff Size: Standard BP Diastolic 78 mm[Hg] Comments: Patient Position: Sitting; Cuff Location: Left Arm; Cuff Size: Standard Weight 131.375 lb Height 66.25 in Body Mass Index Calculated 21.04 kg/m2 Body Surface Area Calculated 1.68 m2 :30 Pulse 73 /min Comments: Pattern: Regular Respiration Rate 18 /min Comments: Pattern: Unlabored O2 SAT 98 % Comments: Room air BP Systolic 112 mm[Hg] Comments: Patient Position: Sitting; Cuff Location: Left Arm; Cuff Size: Large BP Diastolic 76 mm[Hg] Comments: Patient Position: Sitting; Cuff Location: Left Arm; Cuff Size: Large Weight 146 lb Height 66 in Body Mass Index Calculated 23.56 kg/m2 Body Surface Area Calculated 1.75 m2 :10 Pulse 79 /min Comments: Pattern: Regular Respiration Rate 18 /min Comments: Pattern: Unlabored O2 SAT 97 % Comments: Room air BP Systolic 122 mm[Hg] Comments: Patient Position: Sitting; Cuff Location: Left Arm; Cuff Size: Large BP Diastolic 78 mm[Hg] Comments: Patient Position: Sitting; Cuff Location: Left Arm; Cuff Size: Large Weight 172.125 lb Height 66 in Body Mass Index Calculated 27.78 kg/m2 Body Surface Area Calculated 1.88 m2 :06 Pulse 76 /min Comments: Pattern: Regular Respiration Rate 18 /min Comments: Pattern: Unlabored O2 SAT 98 % Comments: Room air BP Systolic 120 mm[Hg] Comments: Patient Position: Sitting; Cuff Location: Left Arm; Cuff Size: Large BP Diastolic 78 mm[Hg] Comments: Patient Position: Sitting; Cuff Location: Left Arm; Cuff Size: Large Weight 169.375 lb Height 66 in Body Mass Index Calculated 27.34 kg/m2 Body Surface Area Calculated 1.86 m2 :04 Pulse 70 /min Comments: Pattern: Regular Respiration Rate 18 /min Comments: Pattern: Unlabored O2 SAT 99 % Comments: Room air BP Systolic 118 mm[Hg] Comments: Patient Position: Sitting; Cuff Location: Left Arm; Cuff Size: Large BP Diastolic 64 mm[Hg] Comments: Patient Position: Sitting; Cuff Location: Left Arm; Cuff Size: Large Weight 172.375 lb Height 66 in Body Mass Index Calculated 27.82 kg/m2 Body Surface Area Calculated 1.88 m2 :24 Temperature 97.9 f Comments: Method: Oral Pulse 83 /min Comments: Pattern: Regular Respiration Rate 18 /min Comments: Pattern: Unlabored O2 SAT 93 % Comments: Room air BP Systolic 122 mm[Hg] Comments: Patient Position: Sitting; Cuff Location: Left Arm; Cuff Size: Large BP Diastolic 80 mm[Hg] Comments: Patient Position: Sitting; Cuff Location: Left Arm; Cuff Size: Large Weight 153.1875 lb Height 66 in Body Mass Index Calculated 24.72 kg/m2 Body Surface Area Calculated 1.79 m2 :01 Temperature 98.4 f Comments: Method: Oral Pulse 64 /min Comments: Pattern: Regular Respiration Rate 18 /min Comments: Pattern: Unlabored BP Systolic 138 mm[Hg] Comments: Patient Position: Sitting; Cuff Location: Left Arm; Cuff Size: Large BP Diastolic 82 mm[Hg] Comments: Patient Position: Sitting; Cuff Location: Left Arm; Cuff Size: Large Weight 160.5625 lb Height 66 in Body Mass Index Calculated 25.92 kg/m2 Body Surface Area Calculated 1.82 m2 33-Nbu-825250:41 Temperature 98 f Comments: Method: Oral Pulse 100 /min Comments: Pattern: Regular Respiration Rate 16 /min Comments: Pattern: Unlabored O2 SAT 96 % Comments: Room air BP Systolic 122 mm[Hg] Comments: Patient Position: Sitting; Cuff Location: Left Arm; Cuff Size: Standard BP Diastolic 70 mm[Hg] Comments: Patient Position: Sitting; Cuff Location: Left Arm; Cuff Size: Standard Weight 155 lb Height 66 in Body Mass Index Calculated 25.02 kg/m2 Body Surface Area Calculated 1.79 m2 :00 Temperature 98.5 f Pulse 84 /min Comments: Pattern: Regular Respiration Rate 16 /min Comments: Pattern: Unlabored BP Systolic 142 mm[Hg] Comments: Patient Position: Sitting; Cuff Location: Left Arm; Cuff Size: Standard BP Diastolic 94 mm[Hg] Comments: Patient Position: Sitting; Cuff Location: Left Arm; Cuff Size: Standard Weight 155 lb Height 66 in Body Mass Index Calculated 25.02 kg/m2 Body Surface Area Calculated 1.79 m2 Results Date Description Value Details [id number]-Gff-188424:00 CDIFF (Molecular) Comments: [facility] [address] [place], [address] CDIFF See Note (Normal) Comments: Cdiff-MolecularNormal Reference Range = Negative RESULTS CALLED TO KOSTAS/ 05/27/18 0926 Margareth Savage. Copy of report sent to Infection Control Printer MS#[id number] 05/27/18 5758 BRODIE. C. Diff DNA Positive-Toxigenic C. Difficile DNA DetectedNAAT METHOD Testing was performed using nucleic acid amplification ORGANISM 1: Toxigenic C. difficile DNA :29 Miscellaneous Lab Procedure Comments: Comments: [id number] TUBESTest(s) Ordered: [id number] [facility] [address] [place], [id number] [facility] [place] Comments: TEST RESULT UNITS REF INTERVALQFT- TB Plus (Client Incubated)QuantiFERON Criteria The QuantiFERON-TB Gold Plus result is determined bysubtracting the Nil value from either TB a LAB (Normal) ntigen (Ag) tube.The mitogen tube serves as a control for the test.QuantiFERON TB1 Ag Value 0.03 IU/mLQuantiFERON TB2 Ag Value 0.03 IU/mLQuantiFERON Nil Value 0.03 IU/mL TEST QuantiFERON Mitogen Value >10.00 IU/mLQuantiFERON-TB Gold Plus Negative NegativeThe specimen received for QuantiFERON testing was incubatedby the ordering institution. Specifi c procedures outlined inour Directory of Services and in the package insert for theQuantiFERON Gold (In Tube) test must be followed to enablefor proper stimulation of cells for the production ofinterfer on gamma. TESTING PERFORMED AT [facility]. ORIGINAL REPORT ON FILE IN LAB CONTAINS ADDITIONAL TEST SITE INFORMATION. :31 Urinalysis, Complete Comments: RESULT(S) PREVIOUSLY REPORTED ON MANUAL REQUISITION DURINGDOWNTIME.How was Urine Obtained? CLEAN [facility] [address] [place], [id number] MUCUS, URINE 0 SEEN {/hpf} (Normal) BACTERIA RARE {/hpf} (Normal) SQUAM EPI 0-5 SEEN {/hpf} (Normal) Range: 5-10 RBC-UA 0 SEEN {/hpf} (Normal) Range: 0-5 WBC 0-5 SEEN {/hpf} (Normal) Range: 0-5 LEUK ESTERASE 500 /ul (Abnormal) OCCULT BLOOD-UR 10 /ul (Abnormal) NITRITE UR Negative (Normal) UROBILI Normal mg/dL (Normal) PROT DIPSTX Negative mg/dL (Normal) pH UR 7.0 (Normal) Range: 5.0 - 8.0 SP.GR. DIPSTX 1.010 (Normal) Range: 1.002-1.030 KETONE UR Negative mg/dL (Normal) BILIRUBIN URINE 1 mg/dL (Abnormal) Comments: COLOR OF URINE MAY AFFECT DIPSTICK RESULTS. GLUCOSE, UR NEGATIVE mg/dL (Normal) CLARITY Clear (Normal) COLOR Yellow (Normal) :15 CBC-Complete Blood Cnt No Diff Comments: RESULT(S) PREVIOUSLY REPORTED ON MANUAL REQUISITION DURINGDOWNTIME.[facility] [address] [place], [place], [id number] MPV 10.8 fL (Normal) Range: 6.2-12.0 PLT 275 K/mm3 (Normal) Range: 150-450 RDW SD 46.6 fL (Abnormal) Range: 35.1-43.9 RDW CV 13.1 % (Normal) Range: 11.6-14.6 MCHC 32.1 {g/gl} (Normal) Range: 32-36 MCH 31.5 pg (Normal) Range: 27.0-32.0 MCV 97.9 fL (Normal) Range: 81-99 HCT 42.0 % (Normal) Range: 37-47 HGB 13.5 g/dL (Normal) Range: 12.0-15.0 RBC 4.29 {M/mm3} (Normal) Range: 4.2-5.4 WBC 5.7 K/mm3 (Normal) Range: 4.4-11.0 :15 Comprehensive Metabolic Profil Comments: RESULT(S) PREVIOUSLY REPORTED ON MANUAL REQUISITION DURINGDOWNTIME.[facility] [address] [place], [place], [id number] GAP 8 (Normal) Range: 5-15 CO2 32.0 mmol/L (Normal) Range: 21.0-32.0 CL 102 mmol/L (Normal) Range: 98-107 K 3.7 mmol/L (Normal) Range: 3.5-5.1 NA 142 mmol/L (Normal) Range: 136-145 T BILI 0.50 mg/dL (Normal) Range: 0.20-1.00 ALT 25 U/L (Normal) Range: 13-56 ALK P 57 U/L (Normal) Range: 45-117 AST 26 U/L (Normal) Range: 15-37 CA 9.3 mg/dL (Normal) Range: 8.5-10.1 A/G 1.1 {RATIO} (Normal) Range: 0.9-2.4 GLOB 3.9 g/dL (Normal) Range: 2.2-4.2 ALB 4.3 g/dL (Normal) Range: 3.2-5.0 T PROT 8.2 g/dL (Normal) Range: 6.4-8.2 BUN/CRE 21.0 {RATIO} (Abnormal) Range: 10-20 EST GFR - AA 97 mL/min (Normal) EST GFR 80 mL/min (Normal) CREAT,SERUM 0.81 mg/dL (Normal) Range: 0.55-1.02 Comments: The validity of the calculated GFR AND GFRAA in patients over70 years has not been determined. Clinical correlation isessential. BUN 17 mg/dL (Normal) Range: 7-18 GLU 78 mg/dL (Normal) Range: 74-106 Comments: Please note revised GLUCOSE reference range tctsogztw80/02/2018. 17-Dec-20177:15 Lipid Profile Comments: RESULT(S) PREVIOUSLY REPORTED ON MANUAL REQUISITION DURINGDOWNTIME.[facility] [address] [place], [address] VLDL 16 mg/dL (Normal) Range: 5-40 LDL 99 mg/dL (Normal) Range: 0-130 HDL 90 mg/dL (Normal) Comments: The drugs N-Acetylcysteine and Metamizole may falselydepress this assay. Reference Range HDL <40 mg/dL Low HDL Cholesterol HDL >or= 60 mg/dL High HDL Cholesterol TRIG 81 mg/dL (Normal) Comments: The drugs N-Acetylcysteine and Metamizole may falselydepress this assay.Serum Triglycerides Reference Interval Normal <150 mg/dL Borderline high 150 - 199 mg/dL High 200 - 499 mg/dL Very High > or = 500 mg/dL CHOL 205 mg/dL (Abnormal) Comments: <200 mg/dL Desirable 200-240 mg/dL Borderline >240 mg/dL High Risk 6-Miguel-41816:15 Microalb:Creat Ratio,Random UR Comments: RESULT(S) PREVIOUSLY REPORTED ON MANUAL REQUISITION DURINGDOWNTIME.[facility] [address] [place], [phone] MALB:CREAT 6.0 {mg/g_CRE} (Normal) MICROALBUMIN,UR 13.0 mg/L (Normal) UR CREAT 190.00 mg/dL (Normal) :15 Thyroid Stim Hormone (TSH) Comments: RESULT(S) PREVIOUSLY REPORTED ON MANUAL REQUISITION DURINGDOWNTIME.[facility] [address] [place], [phone] TSH 2.18 {uIU/mL} (Normal) Range: 0.358-3.74 :15 Vitamin D,25 Hydroxy Comments: [facility] [address] [place], [id number] Vitamin D 25-OH 44.5 ng/mL (Normal) Range: 29.95-100.01 Comments: Vitamin D 25(OH) Status Range Deficiency <20 ng/mL (50nmol/L) Insuffciency 20 - 30 ng/mL (50 - 75 nmol/L) Sufficiency 30 - 100 ng/mL (75 - 250 nmol/L) Toxicity >100 ng/mL (>250 nmol/L)RESULT(S) PREVIOUSLY REPORTED ON MANUAL REQUISITION DURINGDOWNTIME. :50 PAP I-G w/rfx hrHPV Comments: CYTOLOGY INFORMATION:- CLINICAL INFORMATION:- DATE LMP/MENOPAUSE: 05/13/17 LMP- COLLECTION VIAL: Thin Prep Vial- PHLEBOTOMY SERVICES TECHNICIAN SOURCE: CERVICAL/ENDOCERVICAL- COLLECTION TECHNIQUE: BRUSH/SPATULASpecimen Comment: [id number] Comment: No. of containers..01 ThinPrep VialLabCorp (refer to report for specific site)refer to report for address and phone number HPV RFLX Comment (Normal) Comments: The HPV DNA reflex criteria were not met with this specimenresult therefore, no HPV testing was performed.Performed at: [address], [place] [id number] Director: Bess Cross MD, Phone: [phone] PAPSMR Comment (Normal) Comments: The Pap smear is a screening test designed to aid in thedetection of premalignant and malignant conditions of theuterine cervix. It is not a diagnostic procedure andshould not be used as the sole means of detecting cervicalcancer. Both false-positive and false-negative reports dooccur. COMM . (Normal) TEST METHOD Comment (Normal) Comments: This liquid based ThinPrep(R) pap test was screened withthe use of an image guided system. PERFORM Comment (Normal) Comments: Gino Tenorio, Wood Boring Machine Operator (ASCP) ADEQ Comment (Normal) Comments: Satisfactory for evaluation. No endocervical component is identified. DIAGN Comment (Normal) Comments: NEGATIVE FOR INTRAEPITHELIAL LESION AND MALIGNANCY. 66-Fed-153629:28 Microscopic Examination Comments: PATIENT WAS FASTINGPERFORMED BY: [facility] [id number] Bacteria Few (Normal) Epithelial Cells (non renal) 0-10 {/hpf} (Normal) Range: 0 - 10 RBC 0-2 {/hpf} (Normal) Range: 0 - 2 WBC None seen {/hpf} (Normal) Range: 0 - 5 69-Rps-594640:28 LIPID PANEL (86036) Comments: PATIENT WAS FASTINGPERFORMED BY: [facility] [id number] LDL/HDL Ratio 1.3 {ratio_units} (Normal) Range: 0.0-3.2 Comments: LDL/HDL Ratio Men Women 1/2 Avg.Risk 1.0 1.5 Av g.Risk 3.6 3.2 2X Avg.Risk 6.2 5.0 3X Avg.Risk 8.0 6.1 LDL Cholesterol Calc 87 mg/dL (Normal) Range: 0-99 VLDL Cholesterol [place] 15 mg/dL (Normal) Range: 5-40 HDL Cholesterol 66 mg/dL (Normal) Triglycerides 73 mg/dL (Normal) Range: 0-149 Cholesterol, Total 168 mg/dL (Normal) Range: 100-199 63-Qbo-548025:28 TSH (75722) Comments: PATIENT WAS FASTINGPERFORMED BY: [employer] [place] [id number] TSH 2.140 {uIU/mL} (Normal) Range: 0.450-4.500 :28 CALCIFEDIOL (08792) Comments: PATIENT WAS FASTINGPERFORMED BY: [facility]6[address] [facility] [id number] Vitamin D, 25-Hydroxy 72.8 ng/mL (Normal) Range: 30.0-100.0 Comments: Vitamin D deficiency has been defined by the [place] ofMedicine and an Endocrine Society practice guideline as alevel of serum 25-OH vitamin D less than 20 ng/mL (1,2).The Endocrine Society went on to further define vitamin Dinsufficiency as a level between 21 and 29 ng/mL (2).1. IOM ([place] of Medicine). 2010. Dietary reference intakes for calcium and D. [place]: The National Academies Press.2. Krystal MF, Ashtyn NC, Cassandra FLEMING, et al. Evaluation, treatment, and prevention of vitamin D deficiency: an Endocrine Society clinical practice guideline. JCEM. 2010; 96(7):1911-30. 56-Xkn-671021:28 URINALYSIS, W/ MICRO (29784) Comments: PATIENT WAS FASTINGPERFORMED BY: [facility]6[address] [facility] [id number] Microscopic Examination See below: (Normal) Comments: Microscopic was indicated and was performed. Microscopic Examination MICRON (Normal) Comments: Microscopic follows if indicated. Nitrite, Urine Negative (Normal) Urobilinogen,Semi-Qn 0.2 mg/dL (Normal) Range: 0.2-1.0 Bilirubin Negative (Normal) Occult Blood Negative (Normal) Ketones Negative (Normal) Glucose Negative (Normal) Protein Negative (Normal) WBC Esterase Negative (Normal) Appearance Clear (Normal) Urine-Color Yellow (Normal) pH 7.0 (Normal) Range: 5.0-7.5 Specific [place] 1.010 (Normal) Range: 1.005-1.030 53-Cez-788322:28 MICROALBUMIN: CREATININE RATIO Comments: PATIENT WAS FASTINGPERFORMED BY: [facility]6[address] [facility] [id number] ([id number]) AND (33082) Microalb/Creat Ratio MALD {mg/g_creat} Range: 0.0-30.0 (Abnormal) Comments: This result is below the assay's limit of quantitation indicating adilute specimen, potentially due to diurnal variation. Considerrecollection at a time likely to provide a more concentrated urine. Microalbumin, Urine <3.0 ug/mL (Normal) Creatinine, Urine 39.6 mg/dL (Normal) 86-Vdo-904923:28 METABOLIC PANEL, COMPREHENSIVE Comments: PATIENT WAS FASTINGPERFORMED BY: [facility] SystemHfwgta1653 [facility] [id number] ([id number]) ALT (SGPT) 9 [iU]/L (Normal) Range: 0-32 AST (SGOT) 17 [iU]/L (Normal) Range: 0-40 Alkaline Phosphatase, S 50 [iU]/L (Normal) Range: 39-117 Bilirubin, Total 0.4 mg/dL (Normal) Range: 0.0-1.2 A/G Ratio 1.8 (Normal) Range: 1.2-2.2 Globulin, Total 2.5 g/dL (Normal) Range: 1.5-4.5 Albumin, Serum 4.6 g/dL (Normal) Range: 3.5-5.5 Protein, Total, Serum 7.1 g/dL (Normal) Range: 6.0-8.5 Calcium, Serum 9.7 mg/dL (Normal) Range: 8.7-10.2 Carbon Dioxide, Total 27 mmol/L (Normal) Range: 18-29 Chloride, Serum 95 mmol/L (Abnormal) Range: 96-106 Potassium, Serum 4.6 mmol/L (Normal) Range: 3.5-5.2 Sodium, Serum 137 mmol/L (Normal) Range: 134-144 BUN/Creatinine Ratio 22 (Normal) Range: 9-23 eGFR If Africn Am 104 mL/min/1.73 (Normal) eGFR If NonAfricn Am 90 mL/min/1.73 (Normal) Creatinine, Serum 0.78 mg/dL (Normal) Range: 0.57-1.00 BUN 17 mg/dL (Normal) Range: 6-24 Glucose, Serum 79 mg/dL (Normal) Range: 65-99 29-Xoj-800148:28 CBC W/AUTO DIFF WBC (03763) Comments: PATIENT WAS FASTINGPERFORMED BY: [facility] SystemZtrwjt0016 [facility] [id number] Immature Grans (Abs) 0.0 {x10E3/uL} (Normal) Range: 0.0-0.1 Immature Granulocytes 0 % (Normal) Baso (Absolute) 0.0 {x10E3/uL} (Normal) Range: 0.0-0.2 Eos (Absolute) 0.2 {x10E3/uL} (Normal) Range: 0.0-0.4 Monocytes(Absolute) 0.5 {x10E3/uL} (Normal) Range: 0.1-0.9 Lymphs (Absolute) 2.0 {x10E3/uL} (Normal) Range: 0.7-3.1 Neutrophils (Absolute) 3.4 {x10E3/uL} (Normal) Range: 1.4-7.0 Basos 0 % (Normal) Eos 3 % (Normal) Monocytes 9 % (Normal) Lymphs 33 % (Normal) Neutrophils 55 % (Normal) Platelets 307 {x10E3/uL} (Normal) Range: 150-379 RDW 13.1 % (Normal) Range: 12.3-15.4 MCHC 32.2 g/dL (Normal) Range: 31.5-35.7 MCH 30.9 pg (Normal) Range: 26.6-33.0 MCV 96 fL (Normal) Range: 79-97 Hematocrit 40.7 % (Normal) Range: 34.0-46.6 Hemoglobin 13.1 g/dL (Normal) Range: 11.1-15.9 RBC 4.24 {x10E6/uL} (Normal) Range: 3.77-5.28 WBC 6.0 {x10E3/uL} (Normal) Range: 3.4-10.8 96-Lvc-829646:00 PAP I-G w/rfx hrHPV Comments: CYTOLOGY INFORMATION:- CLINICAL INFORMATION:- DATE LMP/MENOPAUSE: 11/16/16 LMP- COLLECTION VIAL: Thin Prep Vial- PHLEBOTOMY SERVICES TECHNICIAN SOURCE: CERVICAL/ENDOCERVICAL- COLLECTION TECHNIQUE: BRUSH/SPATULACYTOLOGY INFORMATI ON:- CLINICAL INFORMATION:- DATE LMP/MENOPAUSE: 11/16/16 LMP- COLLECTION VIAL: Thin Prep Vial- PHLEBOTOMY SERVICES TECHNICIAN SOURCE: CERVICAL/ENDOCERVICAL- COLLECTION TECHNIQUE: BRUSH/SPATULASpecimen Comment: [id number] 0Specimen Comment: No. of containers..01 CYTYC Thin Prep VialLabCo (refer to report for specific site)refer to report for address and phone number HPV RFLX Comment (Normal) Comments: The HPV DNA reflex criteria were not met with this specimenresult therefore, no HPV testing was performed.Performed at: [address] [id number] Director: Bess Cross MD, Phone: [phone] PAPSMR Comment (Normal) Comments: The Pap smear is a screening test designed to aid in thedetection of premalignant and malignant conditions of theuterine cervix. It is not a diagnostic procedure andshould not be used as the sole means of detecting cervicalcancer. Both false-positive and false-negative reports dooccur. COMM . (Normal) TEST METHOD Comment (Normal) Comments: This liquid based ThinPrep(R) pap test was screened withthe use of an image guided system. PERFORM Comment (Normal) Comments: Jessica Mcdaniels, Wood Boring Machine Operator (ASCP) ADEQ Comment (Normal) Comments: Satisfactory for evaluation. Endocervical and/or squamous metaplasticcells (endocervical component) are present. DIAGN Comment (Normal) Comments: NEGATIVE FOR INTRAEPITHELIAL LESION AND MALIGNANCY. 60-Ohl-442480:11 MICROALBUMIN: CREATININE RATIO Comments: PATIENT WAS FASTINGPERFORMED BY: [employer] [place] [id number] ([id number]) AND (99026) Microalb/Creat Ratio 6.5 {mg/g_creat} (Normal) Range: 0.0-30.0 Microalbumin, Urine 10.7 ug/mL (Normal) Creatinine, Urine 164.8 mg/dL (Normal) 76-Hxf-397267:11 CALCIFIDIOL (41194) VIT D 25 Comments: PATIENT WAS FASTINGPERFORMED BY: [employer] [place] [id number]; fu 4-24 kf Vitamin D, 25-Hydroxy 67.7 ng/mL (Normal) Range: 30.0-100.0 Comments: Vitamin D deficiency has been defined by the [place] of[place]icine and an Endocrine Society practice guideline as alevel of serum 25-OH vitamin D less than 20 ng/mL (1,2).The Endocrine Society went on to further define vitamin Dinsufficiency as a level between 21 and 29 ng/mL (2).1. IOM ([place] of Medicine). 2010. Dietary reference intakes for calcium and D. [place]: The National Academies Press.2. Krystal MF, Ashtyn GREENBERG, Cassandra FLEMING, et al. Evaluation, treatment, and prevention of vitamin D deficiency: an Endocrine Society clinical practice guideline. JCEM. 2010; 96(7):1911-30. 09-Fde-689736:11 CBC WITH MANUAL DIFF (68772) Comments: PATIENT WAS FASTINGPERFORMED BY: [facility] [address]gu3559 [facility] [id number] Immature Grans (Abs) 0.0 {x10E3/uL} (Normal) Range: 0.0-0.1 Immature Granulocytes 0 % (Normal) Baso (Absolute) 0.1 {x10E3/uL} (Normal) Range: 0.0-0.2 Eos (Absolute) 0.1 {x10E3/uL} (Normal) Range: 0.0-0.4 Monocytes(Absolute) 0.5 {x10E3/uL} (Normal) Range: 0.1-0.9 Lymphs (Absolute) 2.3 {x10E3/uL} (Normal) Range: 0.7-3.1 Neutrophils (Absolute) 4.1 {x10E3/uL} (Normal) Range: 1.4-7.0 Basos 1 % (Normal) Eos 1 % (Normal) Monocytes 7 % (Normal) Lymphs 32 % (Normal) Neutrophils 59 % (Normal) Platelets 357 {x10E3/uL} (Normal) Range: 150-379 RDW 13.1 % (Normal) Range: 12.3-15.4 MCHC 31.6 g/dL (Normal) Range: 31.5-35.7 MCH 31.2 pg (Normal) Range: 26.6-33.0 MCV 99 fL (Abnormal) Range: 79-97 Hematocrit 40.8 % (Normal) Range: 34.0-46.6 Hemoglobin 12.9 g/dL (Normal) Range: 11.1-15.9 RBC 4.13 {x10E6/uL} (Normal) Range: 3.77-5.28 WBC 7.0 {x10E3/uL} (Normal) Range: 3.4-10.8 18-Nnm-358550:11 Metabolic Panel, Comprehensive Comments: PATIENT WAS FASTINGPERFORMED BY: RUBEN [facility] [id number] ([id number]) ALT (SGPT) 10 [iU]/L (Normal) Range: 0-32 AST (SGOT) 13 [iU]/L (Normal) Range: 0-40 Alkaline Phosphatase, S 54 [iU]/L (Normal) Range: 39-117 Bilirubin, Total 0.4 mg/dL (Normal) Range: 0.0-1.2 A/G Ratio 1.8 (Normal) Range: 1.2-2.2 Globulin, Total 2.5 g/dL (Normal) Range: 1.5-4.5 Albumin, Serum 4.5 g/dL (Normal) Range: 3.5-5.5 Protein, Total, Serum 7.0 g/dL (Normal) Range: 6.0-8.5 Calcium, Serum 9.6 mg/dL (Normal) Range: 8.7-10.2 Carbon Dioxide, Total 26 mmol/L (Normal) Range: 18-29 Chloride, Serum 97 mmol/L (Normal) Range: 96-106 Potassium, Serum 4.3 mmol/L (Normal) Range: 3.5-5.2 Sodium, Serum 140 mmol/L (Normal) Range: 134-144 BUN/Creatinine Ratio 19 (Normal) Range: 9-23 eGFR If Africn Am 95 mL/min/1.73 (Normal) eGFR If NonAfricn Am 82 mL/min/1.73 (Normal) Creatinine, Serum 0.84 mg/dL (Normal) Range: 0.57-1.00 BUN 16 mg/dL (Normal) Range: 6-24 Glucose, Serum 88 mg/dL (Normal) Range: 65-99 27-Vvs-134764:11 Lipid Panel (46860) Comments: PATIENT WAS FASTINGPERFORMED BY: [facility] [id number] LDL/HDL Ratio 1.4 {ratio_units} (Normal) Range: 0.0-3.2 Comments: LDL/HDL Ratio Men Women 1/2 Avg.Risk 1.0 1.5 Av g.Risk 3.6 3.2 2X Avg.Risk 6.2 5.0 3X Avg.Risk 8.0 6.1 LDL Cholesterol Calc 89 mg/dL (Normal) Range: 0-99 VLDL Cholesterol [place] 17 mg/dL (Normal) Range: 5-40 HDL Cholesterol 63 mg/dL (Normal) Triglycerides 83 mg/dL (Normal) Range: 0-149 Cholesterol, Total 169 mg/dL (Normal) Range: 100-199 :45 Microscopic Examination Comments: PATIENT WAS FASTINGPERFORMED BY: [email or web address]6370 [facility] [id number] Bacteria Few (Normal) Mucus Threads Present (Normal) Crystal Type Amorphous Sediment (Normal) Crystals Present (Abnormal) Epithelial Cells (non renal) 0-10 {/hpf} (Normal) Range: 0 - 10 RBC 0-2 {/hpf} (Normal) Range: 0 - 2 WBC 0-5 {/hpf} (Normal) Range: 0 - 5 :45 CALCIFIDIOL (62350) VIT D 25 Comments: PATIENT WAS FASTINGPERFORMED BY: [facility]6370 [facility] [id number] Vitamin D, 25-Hydroxy 78.0 ng/mL (Normal) Range: 30.0-100.0 Comments: Vitamin D deficiency has been defined by the [place] of[place]icine and an Endocrine Society practice guideline as alevel of serum 25-OH vitamin D less than 20 ng/mL (1,2).The Endocrine Society went on to further define vitamin Dinsufficiency as a level between 21 and 29 ng/mL (2).1. IOM ([place] of Medicine). 2010. Dietary reference intakes for calcium and D. [place]: The National Academies Press.2. Krystal MF, Ashtyn NC, Cassandra FLEMING, et al. Evaluation, treatment, and prevention of vitamin D deficiency: an Endocrine Society clinical practice guideline. JCEM. 2010; 96(7):1911-30. :45 LIPID PANEL (61117) Comments: PATIENT WAS FASTINGPERFORMED BY: [employer] Wzqzka7309 [facility] [id number] LDL/HDL Ratio 1.9 {ratio_units} (Normal) Range: 0.0-3.2 Comments: LDL/HDL Ratio Men Women 1/2 Avg.Risk 1.0 1.5 Av g.Risk 3.6 3.2 2X Avg.Risk 6.2 5.0 3X Avg.Risk 8.0 6.1 LDL Cholesterol Calc 93 mg/dL (Normal) Range: 0-99 VLDL Cholesterol [place] 24 mg/dL (Normal) Range: 5-40 HDL Cholesterol 48 mg/dL (Normal) Triglycerides 118 mg/dL (Normal) Range: 0-149 Cholesterol, Total 165 mg/dL (Normal) Range: 100-199 :45 TSH (67941) Comments: PATIENT WAS FASTINGPERFORMED BY: [facility] Snvnse2780 [facility] [id number] TSH 1.880 {uIU/mL} (Normal) Range: 0.450-4.500 :45 URINALYSIS, W/ MICRO (64969) Comments: PATIENT WAS FASTINGPERFORMED BY: [facility] ToddAcuteCare Health SystemStbxzu1664 [facility] [id number] Microscopic Examination See below: (Normal) Comments: Microscopic was indicated and was performed. Microscopic Examination MICRON (Normal) Comments: Microscopic follows if indicated. Nitrite, Urine Negative (Normal) Urobilinogen,Semi-Qn 0.2 mg/dL (Normal) Range: 0.2-1.0 Bilirubin Negative (Normal) Occult Blood Negative (Normal) Ketones Negative (Normal) Glucose Negative (Normal) Protein Negative (Normal) WBC Esterase Negative (Normal) Appearance Clear (Normal) Urine-Color Yellow (Normal) pH 7.0 (Normal) Range: 5.0-7.5 Specific [place] 1.010 (Normal) Range: 1.005-1.030 :45 MICROALBUMIN: CREATININE RATIO Comments: PATIENT WAS FASTINGPERFORMED BY: [facility] ToddAcuteCare Health SystemNlgasa8817 [facility] [id number] ([id number]) AND (73261) Microalb/Creat Ratio <6.7 {mg/g_creat} (Normal) Range: 0.0-30.0 Microalbumin, Urine <3.0 ug/mL (Normal) Creatinine, Urine 44.9 mg/dL (Normal) :45 METABOLIC PANEL, COMPREHENSIVE Comments: PATIENT WAS FASTINGPERFORMED BY: RUBEN [employer] [id number] (29472) ALT (SGPT) 13 [iU]/L (Normal) Range: 0-32 AST (SGOT) 14 [iU]/L (Normal) Range: 0-40 Alkaline Phosphatase, S 45 [iU]/L (Normal) Range: 39-117 Bilirubin, Total 0.4 mg/dL (Normal) Range: 0.0-1.2 A/G Ratio 2.0 (Normal) Range: 1.1-2.5 Globulin, Total 2.3 g/dL (Normal) Range: 1.5-4.5 Albumin, Serum 4.5 g/dL (Normal) Range: 3.5-5.5 Protein, Total, Serum 6.8 g/dL (Normal) Range: 6.0-8.5 Calcium, Serum 9.4 mg/dL (Normal) Range: 8.7-10.2 Carbon Dioxide, Total 23 mmol/L (Normal) Range: 18-29 Chloride, Serum 95 mmol/L (Abnormal) Range: 97-106 Potassium, Serum 4.2 mmol/L (Normal) Range: 3.5-5.2 Sodium, Serum 139 mmol/L (Normal) Range: 136-144 BUN/Creatinine Ratio 22 (Normal) Range: 9-23 eGFR If Africn Am 113 mL/min/1.73 (Normal) eGFR If NonAfricn Am 98 mL/min/1.73 (Normal) Creatinine, Serum 0.73 mg/dL (Normal) Range: 0.57-1.00 BUN 16 mg/dL (Normal) Range: 6-24 Glucose, Serum 86 mg/dL (Normal) Range: 65-99 :45 CBC W/AUTO DIFF WBC (21063) Comments: PATIENT WAS FASTINGPERFORMED BY: [facility] [id number] Immature Grans (Abs) 0.0 {x10E3/uL} (Normal) Range: 0.0-0.1 Immature Granulocytes 0 % (Normal) Baso (Absolute) 0.0 {x10E3/uL} (Normal) Range: 0.0-0.2 Eos (Absolute) 0.1 {x10E3/uL} (Normal) Range: 0.0-0.4 Monocytes(Absolute) 0.5 {x10E3/uL} (Normal) Range: 0.1-0.9 Lymphs (Absolute) 1.8 {x10E3/uL} (Normal) Range: 0.7-3.1 Neutrophils (Absolute) 4.6 {x10E3/uL} (Normal) Range: 1.4-7.0 Basos 0 % (Normal) Eos 1 % (Normal) Monocytes 8 % (Normal) Lymphs 26 % (Normal) Neutrophils 65 % (Normal) Platelets 336 {x10E3/uL} (Normal) Range: 150-379 RDW 13.4 % (Normal) Range: 12.3-15.4 MCHC 32.3 g/dL (Normal) Range: 31.5-35.7 MCH 31.3 pg (Normal) Range: 26.6-33.0 MCV 97 fL (Normal) Range: 79-97 Hematocrit 37.1 % (Normal) Range: 34.0-46.6 Hemoglobin 12.0 g/dL (Normal) Range: 11.1-15.9 RBC 3.83 {x10E6/uL} (Normal) Range: 3.77-5.28 WBC 7.1 {x10E3/uL} (Normal) Range: 3.4-10.8 58-Xcx-300112:00 PAP I-G w/rfx hrHPV Comments: CYTOLOGY INFORMATION:- CLINICAL INFORMATION:- DATE LMP/MENOPAUSE: 04/08/16 LMP- COLLECTION VIAL: Thin Prep Vial- PHLEBOTOMY SERVICES TECHNICIAN SOURCE: CERVICAL/ENDOCERVICAL- COLLECTION TECHNIQUE: BRUSH/SPATULASpecimen Comment: [id number] Comment: No. of containers..01 CYTYC Thin Prep VialLabCorp (refer to report for specific site)refer to report for address and phone number HPV HC,HG RISK Negative Comments: This high-risk HPV test detects thirteen high-risk types(16/18/31/33/35/39/45/51/52/56/58/59/68) withoutdifferentiation.Performed at: [facility] - LabCoSt. [facility] CarmelWaxyvbhjaykz76[address] (Normal) [facility], [place] [id number] Director: Patrizia Lovelace MD, Phone: [phone] at: [facility] Lab[address] [id number] Director: Bess Cross MD, Phone: [phone] formed at: = - [facility]Co[address] [id number] Director: Bess Cross MD, Phone: [phone] HPV RFLX Comment Comments: See below for HPV testing results. (Normal) PAPSMR Comment Comments: The Pap smear is a screening test designed to aid in thedetection of premalignant and malignant conditions of theuterine cervix. It is not a diagnostic procedure andshould not be used as the sole means (Normal) of detecting cervicalcancer. Both false-positive and false-negative reports dooccur. COMM . (Normal) TEST METHOD Comment Comments: This liquid based ThinPrep(R) pap test was screened withthe use of an image guided system. (Normal) Path prov. ICD9 Comment Comments: R87.610 (Normal) SIGN Comment Comments: Patrizia Lovelace MD, Pathologist (Normal) PERFORM Comment Comments: Jos Patterson, Wood Boring Machine Operator (ASCP) (Normal) ADEQ Comment Comments: Satisfactory for evaluation. Endocervical and/or squamous metaplasticcells (endocervical component) are present. (Normal) DIAGN Comment Comments: EPITHELIAL CELL ABNORMALITY.ATYPICAL SQUAMOUS CELLS OF UNDETERMINED SIGNIFICANCE. (Abnormal) 68-Mdx-10490:46 Microscopic Examination Comments: PATIENT WAS FASTINGPERFORMED BY: LabCoAcuteCare Health SystemLkxujl2642 Shulka RoadDublin [place] [id number] Bacteria Few (Normal) Mucus Threads Present (Normal) Epithelial Cells (non renal) 0-10 {/hpf} (Normal) Range: 0 - 10 RBC 3-10 {/hpf} (Abnormal) Range: 0 - 2 WBC 0-5 {/hpf} (Normal) Range: 0 - 5 :46 CALCIFIDIOL (33158) VIT D 25 Comments: PATIENT WAS FASTINGPERFORMED BY: [email or web address].comAscension River District Hospital6370 [facility] [id number] Vitamin D, 25-Hydroxy 54.4 ng/mL (Normal) Range: 30.0-100.0 Comments: Vitamin D deficiency has been defined by the [place] Healthcarecine and an Endocrine Society practice guideline as alevel of serum 25-OH vitamin D less than 20 ng/mL (1,2).The Endocrine Society went on to further define vitamin Dinsufficiency as a level between 21 and 29 ng/mL (2).1. IOM ([place] of Medicine). 2010. Dietary reference intakes for calcium and D. [place]: The National AcademEktron Press.2. Krystal MF, Ashtyn GREENBERG, Cassandra FLEMING, et al. Evaluation, treatment, and prevention of vitamin D deficiency: an Endocrine Society clinical practice guideline. JCEM. 2010; 96(7):1911-30. :46 TSH (06587) Comments: PATIENT WAS FASTINGPERFORMED BY: [email or web address] River District Hospital6370 [facility] [id number] TSH 1.750 {uIU/mL} (Normal) Range: 0.450-4.500 :46 URINALYSIS, W/ MICRO (75656) Comments: PATIENT WAS FASTINGPERFORMED BY: [facility]6370 [facility] [id number] Microscopic Examination See below: (Normal) Comments: Microscopic was indicated and was performed. Microscopic Examination MICRON (Normal) Comments: Microscopic follows if indicated. Nitrite, Urine Negative (Normal) Urobilinogen,Semi-Qn 0.2 mg/dL (Normal) Range: 0.2-1.0 Bilirubin Negative (Normal) Occult Blood Negative (Normal) Ketones Negative (Normal) Glucose Negative (Normal) Protein Negative (Normal) WBC Esterase Negative (Normal) Appearance Clear (Normal) Urine-Color Yellow (Normal) pH 6.5 (Normal) Range: 5.0-7.5 Specific [place] 1.023 (Normal) Range: 1.005-1.030 :46 MICROALBUMIN: CREATININE RATIO Comments: PATIENT WAS FASTINGPERFORMED BY: [employer] ([employer]) Afkoqo2905 [address] [facility] HospitalMy-AppsUNC Hospitals Hills[facility] Campus [id number] (09512) AND (19074) Microalb/Creat Ratio 6.0 {mg/g_creat} (Normal) Range: 0.0-30.0 Microalbumin, Urine 10.0 ug/mL (Normal) Comments: Please note reference interval change Creatinine, Urine 167.1 mg/dL (Normal) Comments: Please note reference interval change :46 METABOLIC PANEL, COMPREHENSIVE Comments: PATIENT WAS FASTINGPERFORMED BY: [facility]70 [facility] [id number] (96199) ALT (SGPT) 14 [iU]/L (Normal) Range: 0-32 AST (SGOT) 20 [iU]/L (Normal) Range: 0-40 Alkaline Phosphatase, S 67 [iU]/L (Normal) Range: 39-117 Bilirubin, Total <0.2 mg/dL (Normal) Range: 0.0-1.2 A/G Ratio 1.8 (Normal) Range: 1.1-2.5 Globulin, Total 2.5 g/dL (Normal) Range: 1.5-4.5 Albumin, Serum 4.4 g/dL (Normal) Range: 3.5-5.5 Protein, Total, Serum 6.9 g/dL (Normal) Range: 6.0-8.5 Calcium, Serum 9.1 mg/dL (Normal) Range: 8.7-10.2 Carbon Dioxide, Total 26 mmol/L (Normal) Range: 18-29 Chloride, Serum 99 mmol/L (Normal) Range: 97-108 Potassium, Serum 4.3 mmol/L (Normal) Range: 3.5-5.2 Sodium, Serum 141 mmol/L (Normal) Range: 134-144 BUN/Creatinine Ratio 15 (Normal) Range: 9-23 eGFR If Africn Am 100 mL/min/1.73 (Normal) eGFR If NonAfricn Am 87 mL/min/1.73 (Normal) Creatinine, Serum 0.81 mg/dL (Normal) Range: 0.57-1.00 BUN 12 mg/dL (Normal) Range: 6-24 Glucose, Serum 86 mg/dL (Normal) Range: 65-99 :46 CBC W/AUTO DIFF WBC Comments: PATIENT WAS FASTINGPERFORMED BY: DUNCAN & ToddAcuteCare Health SystemJkgtxl6176 [facility] [id number] Information: [id number] (01059) Immature Grans (Abs) 0.0 {x10E3/uL} (Normal) Range: 0.0-0.1 Immature Granulocytes 0 % (Normal) Baso (Absolute) 0.0 {x10E3/uL} (Normal) Range: 0.0-0.2 Eos (Absolute) 0.1 {x10E3/uL} (Normal) Range: 0.0-0.4 Monocytes(Absolute) 0.5 {x10E3/uL} (Normal) Range: 0.1-0.9 Lymphs (Absolute) 2.1 {x10E3/uL} (Normal) Range: 0.7-3.1 Neutrophils (Absolute) 3.0 {x10E3/uL} (Normal) Range: 1.4-7.0 Basos 1 % (Normal) Eos 2 % (Normal) Monocytes 8 % (Normal) Lymphs 36 % (Normal) Neutrophils 53 % (Normal) Platelets 338 {x10E3/uL} (Normal) Range: 150-379 RDW 13.2 % (Normal) Range: 12.3-15.4 MCHC 32.4 g/dL (Normal) Range: 31.5-35.7 MCH 31.0 pg (Normal) Range: 26.6-33.0 MCV 96 fL (Normal) Range: 79-97 Hematocrit 37.0 % (Normal) Range: 34.0-46.6 Hemoglobin 12.0 g/dL (Normal) Range: 11.1-15.9 RBC 3.87 {x10E6/uL} (Normal) Range: 3.77-5.28 WBC 5.7 {x10E3/uL} (Normal) Range: 3.4-10.8 :37 Microscopic Examination Comments: PATIENT WAS FASTINGPERFORMED BY: LabLanzaTech New ZealandAcuteCare Health SystemNkotcg5779 [facility] [id number] Bacteria Few (Normal) Mucus Threads Present (Normal) Epithelial Cells (non renal) 0-10 {/hpf} (Normal) Range: 0 - 10 RBC 3-10 {/hpf} (Abnormal) Range: 0 - 2 WBC 0-5 {/hpf} (Normal) Range: 0 - 5 :37 TSH (73495) Comments: PATIENT WAS FASTINGPERFORMED BY: DUNCAN [facility] Todd SensiGen [facility] [id number] TSH 1.480 {uIU/mL} (Normal) Range: 0.450-4.500 :37 URINALYSIS, W/ MICRO (93026) Comments: PATIENT WAS FASTINGPERFORMED BY: [employer] ([employer]) SensiGen [facility] [id number] Microscopic Examination See below: (Normal) Comments: Microscopic was indicated and was performed. Microscopic Examination MICRON (Normal) Comments: Microscopic follows if indicated. Nitrite, Urine Negative (Normal) Urobilinogen,Semi-Qn 0.2 mg/dL (Normal) Range: 0.2-1.0 Bilirubin Negative (Normal) Occult Blood Negative (Normal) Ketones Negative (Normal) Glucose Negative (Normal) Protein Negative (Normal) WBC Esterase Negative (Normal) Appearance Clear (Normal) Urine-Color Yellow (Normal) pH 6.0 (Normal) Range: 5.0-7.5 Specific [place] 1.028 (Normal) Range: 1.005-1.030 :37 MICROALBUMIN: CREATININE RATIO Comments: PATIENT WAS FASTINGPERFORMED BY: [facility]UNCAN [facility] Todd [facility] [id number] ([id number]) AND (78180) Microalb/Creat Ratio 7.9 {mg/g_creat} (Normal) Range: 0.0-30.0 Microalbumin, Urine 12.8 ug/mL (Normal) Range: 0.0-17.0 Creatinine, Urine 162.7 mg/dL (Normal) Range: 15.0-278.0 :37 METABOLIC PANEL, COMPREHENSIVE Comments: PATIENT WAS FASTINGPERFORMED BY: [facility]UNCAN [facility] Todd [facility] [id number] (27742) ALT (SGPT) 11 [iU]/L (Normal) Range: 0-32 AST (SGOT) 18 [iU]/L (Normal) Range: 0-40 Alkaline Phosphatase, S 69 [iU]/L (Normal) Range: 39-117 Bilirubin, Total 0.5 mg/dL (Normal) Range: 0.0-1.2 A/G Ratio 1.7 (Normal) Range: 1.1-2.5 Globulin, Total 2.7 g/dL (Normal) Range: 1.5-4.5 Albumin, Serum 4.7 g/dL (Normal) Range: 3.5-5.5 Protein, Total, Serum 7.4 g/dL (Normal) Range: 6.0-8.5 Calcium, Serum 10.2 mg/dL (Normal) Range: 8.7-10.2 Carbon Dioxide, Total 25 mmol/L (Normal) Range: 18-29 Chloride, Serum 97 mmol/L (Normal) Range: 97-108 Potassium, Serum 4.2 mmol/L (Normal) Range: 3.5-5.2 Sodium, Serum 141 mmol/L (Normal) Range: 134-144 BUN/Creatinine Ratio 17 (Normal) Range: 9-23 eGFR If Africn Am 86 mL/min/1.73 (Normal) eGFR If NonAfricn Am 74 mL/min/1.73 (Normal) Creatinine, Serum 0.92 mg/dL (Normal) Range: 0.57-1.00 BUN 16 mg/dL (Normal) Range: 6-24 Glucose, Serum 99 mg/dL (Normal) Range: 65-99 :37 CBC W/AUTO DIFF WBC Comments: PATIENT WAS FASTINGPERFORMED BY: LabCoAcuteCare Health SystemXzhtje1697 [facility] [id number] Information: [id number] (03273) Immature Grans (Abs) 0.0 {x10E3/uL} (Normal) Range: 0.0-0.1 Immature Granulocytes 0 % (Normal) Baso (Absolute) 0.0 {x10E3/uL} (Normal) Range: 0.0-0.2 Eos (Absolute) 0.2 {x10E3/uL} (Normal) Range: 0.0-0.4 Monocytes(Absolute) 0.5 {x10E3/uL} (Normal) Range: 0.1-0.9 Lymphs (Absolute) 1.9 {x10E3/uL} (Normal) Range: 0.7-3.1 Neutrophils (Absolute) 4.5 {x10E3/uL} (Normal) Range: 1.4-7.0 Basos 0 % (Normal) Eos 2 % (Normal) Monocytes 6 % (Normal) Lymphs 27 % (Normal) Neutrophils 65 % (Normal) Platelets 394 {x10E3/uL} (Abnormal) Range: 150-379 RDW 13.2 % (Normal) Range: 12.3-15.4 MCHC 32.9 g/dL (Normal) Range: 31.5-35.7 MCH 31.0 pg (Normal) Range: 26.6-33.0 MCV 94 fL (Normal) Range: 79-97 Hematocrit 38.3 % (Normal) Range: 34.0-46.6 Hemoglobin 12.6 g/dL (Normal) Range: 11.1-15.9 RBC 4.07 {x10E6/uL} (Normal) Range: 3.77-5.28 WBC 7.0 {x10E3/uL} (Normal) Range: 3.4-10.8 :37 CALCIFIDIOL (00716) VIT D 25 Comments: PATIENT WAS FASTINGPERFORMED BY: LabCoAcuteCare Health SystemRenwtf9485 [facility] [id number] Vitamin D, 25-Hydroxy 55.9 ng/mL (Normal) Range: 30.0-100.0 Comments: Vitamin D deficiency has been defined by the [place] ofMedicine and an Endocrine Society practice guideline as alevel of serum 25-OH vitamin D less than 20 ng/mL (1,2).The Endocrine Society went on to further define vitamin Dinsufficiency as a level between 21 and 29 ng/mL (2).1. IOM ([place] of Medicine). 2010. Dietary reference intakes for calcium and D. [place]: The National Academies Press.2. Krystal MF, Ashtyn GREENBERG, Cassandra FLEMING, et al. Evaluation, treatment, and prevention of vitamin D deficiency: an Endocrine Society clinical practice guideline. JCEM. 2010; 96(7):1911-30. 9-Wje-154435:00 PAP I-G w/rfx hrHPV Comments: CYTOLOGY INFORMATION:- CLINICAL INFORMATION:- DATE LMP/MENOPAUSE: 8200718 LMP- COLLECTION VIAL: Thin Prep Vial- PHLEBOTOMY SERVICES TECHNICIAN SOURCE: CERVICAL/ENDOCERVICAL- COLLECTION TECHNIQUE: BRUSH/SPATULASpecimen Comment: NERY [id number] Comment: No. of containers..01 CYTYC Thin Prep VialTest performed at:[facility] [address] [place], [place] [address] HPV RFLX Comment (Normal) Comments: The HPV DNA reflex criteria were not met with this specimenresult therefore, no HPV testing was performed.Performed at: [address] [place] [id number] Director: Kaiser Pennington MD, Phone: [phone] PAPSMR Comment (Normal) Comments: The Pap smear is a screening test designed to aid in thedetection of premalignant and malignant conditions of theuterine cervix. It is not a diagnostic procedure andshould not be used as the sole means of detecting cervicalcancer. Both false-positive and false-negative reports dooccur. COMM . (Normal) TEST METHOD Comment (Normal) Comments: This liquid based ThinPrep(R) pap test was screened withthe use of an image guided system. QC REV Comment (Normal) Comments: Teresa Neal, Wood Boring Machine Operator (ASCP) PERFORM Comment (Normal) Comments: Woody Hendrix, Wood Boring Machine Operator (ASCP) ADEQ Comment (Normal) Comments: Satisfactory for evaluation. Endocervical and/or squamous metaplasticcells (endocervical component) are present. DIAGN Comment (Normal) Comments: NEGATIVE FOR INTRAEPITHELIAL LESION AND MALIGNANCY.FUNGAL ORGANISMS MORPHOLOGICALLY CONSISTENT WITH YAZMIN SPECIES AREPRESENT.THIS SPECIMEN WAS RESCREENED PART OF OUR COACH PROFESSIONAL ATHLETES PROGRAM. ENDOMETRIAL See Note (Normal) Comments: Test performed at:[facility] [address] [place], [place] [address] 6:05 BX/CURETTINGS Comments: Patient: KAYLYN VILLAGRAN : 1970 (44/F) Acct Num: [id number] Phys: Janelle Giles MD Unit Num: [id number] Loc: [facility] Specimen: [id number] Received: 03/01/15818 Spec Type: ENDO M BX/C TISSUES TISSUES: GROSS DESCRIPTION Received is one container labeled with the patient name and designated endometrial curettings. The specimen consists of multiple fragments of hemorrhagic mucoid tissue measuring in aggregate 3 x 2.5 x 0.1 cm. The specimenis totally submitted in one cassette. / SJ: 03/01/15 TC:5 CPT: 55742 HEADER OPERATION: Hysteroscopy, Diagno stic, D AND C PRE-OP DIAGNOSIS: Irregular menstrual bleeding, endometrial thickening TISSUE SUBMITTED: Endometrial curettings MICROSCOPIC DESCRIPTION Slides are reviewed. MICROSCOPIC ZUHAIR GNOSIS Endometrium, curettings: Fragments of endocervix with no significant pathologic change. Disarticulated squamous epithelial cells with no significant pathologic change. Rare strips of benign superficial lower uterine endometrium. AM:sl 03/02/15 Signed [facility] 03/02/15 <signature on file> 79-Zoy-294632:35 ,Urine Comments: Test performed at:[facility] [address] [place] [address] HCGUQUAL Negative {Negative} (Normal) Comments: Very dilute urine specimens, as indicated by a low specificgravity, may not contain asset protection representative levels of hCG.If is still suspected, a first morning urinespecimen should be collected 48 hours later and tested. :58 CBC With Differential/Platelet Comments: PATIENT WAS FASTINGPERFORMED BY: [facility] Zwfcyp9054 [facility] [id number] Information: [id number] Immature Grans (Abs) 0.0 {x10E3/uL} (Normal) Range: 0.0-0.1 Immature Granulocytes 0 % (Normal) Baso (Absolute) 0.0 {x10E3/uL} (Normal) Range: 0.0-0.2 Eos (Absolute) 0.2 {x10E3/uL} (Normal) Range: 0.0-0.4 Monocytes(Absolute) 0.6 {x10E3/uL} (Normal) Range: 0.1-0.9 Lymphs (Absolute) 2.3 {x10E3/uL} (Normal) Range: 0.7-3.1 Neutrophils (Absolute) 4.8 {x10E3/uL} (Normal) Range: 1.4-7.0 Basos 0 % (Normal) Eos 2 % (Normal) Monocytes 7 % (Normal) Lymphs 29 % (Normal) Neutrophils 62 % (Normal) Platelets 327 {x10E3/uL} (Normal) Range: 150-379 RDW 13.3 % (Normal) Range: 12.3-15.4 MCHC 32.2 g/dL (Normal) Range: 31.5-35.7 MCH 30.8 pg (Normal) Range: 26.6-33.0 MCV 96 fL (Normal) Range: 79-97 Hematocrit 39.1 % (Normal) Range: 34.0-46.6 Hemoglobin 12.6 g/dL (Normal) Range: 11.1-15.9 RBC 4.09 {x10E6/uL} (Normal) Range: 3.77-5.28 WBC 7.9 {x10E3/uL} (Normal) Range: 3.4-10.8 :58 Comp. Metabolic Panel (14) Comments: PATIENT WAS FASTINGPERFORMED BY: LabCoAcuteCare Health SystemCwfiwz6229 [facility] [id number] ALT (SGPT) 9 [iU]/L (Normal) Range: 0-32 AST (SGOT) 15 [iU]/L (Normal) Range: 0-40 Alkaline Phosphatase, S 58 [iU]/L (Normal) Range: 39-117 Bilirubin, Total 0.3 mg/dL (Normal) Range: 0.0-1.2 A/G Ratio 2.1 (Normal) Range: 1.1-2.5 Globulin, Total 2.2 g/dL (Normal) Range: 1.5-4.5 Albumin, Serum 4.6 g/dL (Normal) Range: 3.5-5.5 Protein, Total, Serum 6.8 g/dL (Normal) Range: 6.0-8.5 Calcium, Serum 9.8 mg/dL (Normal) Range: 8.7-10.2 Carbon Dioxide, Total 27 mmol/L (Normal) Range: 18-29 Chloride, Serum 97 mmol/L (Normal) Range: 97-108 Potassium, Serum 4.3 mmol/L (Normal) Range: 3.5-5.2 Sodium, Serum 137 mmol/L (Normal) Range: 134-144 BUN/Creatinine Ratio 22 (Normal) Range: 9-23 eGFR If Africn Am 114 mL/min/1.73 (Normal) eGFR If NonAfricn Am 99 mL/min/1.73 (Normal) Creatinine, Serum 0.73 mg/dL (Normal) Range: 0.57-1.00 BUN 16 mg/dL (Normal) Range: 6-24 Glucose, Serum 85 mg/dL (Normal) Range: 65-99 :58 Lipid Panel With LDL/HDL Comments: PATIENT WAS FASTINGPERFORMED BY: EVaultCaverna [facility] Hospital [id number] Ratio LDL/HDL Ratio 1.5 {ratio_units} (Normal) Range: 0.0-3.2 Comments: LDL/HDL Ratio Men Women 1/2 Avg.Risk 1.0 1.5 Av g.Risk 3.6 3.2 2X Avg.Risk 6.2 5.0 3X Avg.Risk 8.0 6.1 LDL Cholesterol Calc 99 mg/dL (Normal) Range: 0-99 VLDL Cholesterol [place] 25 mg/dL (Normal) Range: 5-40 HDL Cholesterol 67 mg/dL (Normal) Comments: According to ATP-III Guidelines, HDL-C >59 mg/dL is considered anegative risk factor for CHD. Triglycerides 123 mg/dL (Normal) Range: 0-149 Cholesterol, Total 191 mg/dL (Normal) Range: 100-199 :58 Microalb/Creat Ratio, Randm Ur Comments: PATIENT WAS FASTINGPERFORMED BY: CogniiUNC [facility]als [facility] Campus [id number] Microalb/Creat Ratio 6.0 {mg/g_creat} Range: 0.0-30.0 (Normal) Microalbumin, Urine 3.1 ug/mL (Normal) Range: 0.0-17.0 Creatinine, Urine 51.9 mg/dL (Normal) Range: 15.0-278.0 25-Nov-2014 TSH 1.650 {uIU/mL} Comments: PATIENT WAS FASTINGPERFORMED BY: [facility] Lbpcbz7155 [facility] [place] [id number] 7:58 (Normal) Range: 0.450-4.500 25-Nov-2014 Vitamin D, 25-Hydroxy 49.2 ng/mL (Normal) Comments: PATIENT WAS FASTINGPERFORMED BY: [facility] Ygopqo5646 [address] [facility] HospitalDublin [place] [id number] 7:58 Range: 30.0-100.0 Comments: Vitamin D deficiency has been defined by the [place] ofMedicine and an Endocrine Society practice guideline as alevel of serum 25-OH vitamin D less than 20 ng/mL (1,2).The Endocrine Society went on to further define vitamin Dinsufficiency as a level between 21 and 29 ng/mL (2).1. IOM ([place] of Medicine). 2010. Dietary reference intakes for calcium and D. [place]: The National Academies Press.2. Krystal MF, Ashtyn NC, Cassandra FLEMING, et al. Evaluation, treatment, and prevention of vitamin D deficiency: an Endocrine Society clinical practice guideline. JCEM. 2010; 96(7):1911-30. 56-Bpd-695516:59 Microscopic Examination Comments: PATIENT WAS FASTINGPERFORMED BY: [facility] Mprpto3270 [facility] [place] [id number] Bacteria None seen (Normal) Mucus Threads Present (Normal) Epithelial Cells (non renal) 0-10 {/hpf} (Normal) Range: 0 - 10 RBC 0-3 {/hpf} (Normal) Range: 0 - 3 WBC None seen {/hpf} (Normal) Range: 0 - 5 54-Ctn-84228:06 Vitamin D Hydroxy (51369) Comments: PATIENT WAS FASTINGPERFORMED BY: [facility] Wheuqm3745 [facility] [place] [id number] Vitamin D, 25-Hydroxy 47.8 ng/mL (Normal) Range: 30.0-100.0 Comments: Vitamin D deficiency has been defined by the [place] ofMedicine and an Endocrine Society practice guideline as alevel of serum 25-OH vitamin D less than 20 ng/mL (1,2).The Endocrine Society went on to further define vitamin Dinsufficiency as a level between 21 and 29 ng/mL (2).1. IOM ([place] of Medicine). 2010. Dietary reference intakes for calcium and D. [place]: The National Academies Press.2. Krystal MF, Ashtyn GREENBERG, Cassandra FLEMING, et al. Evaluation, treatment, and prevention of vitamin D deficiency: an Endocrine Society clinical practice guideline. JCEM. 2010; 96(7):5411-30. :06 TSH (43369) Comments: PATIENT WAS FASTINGPERFORMED BY: [employer] [place] [id number] TSH 1.820 {uIU/mL} (Normal) Range: 0.450-4.500 :06 URINALYSIS, W/ MICRO (92601) Comments: PATIENT WAS FASTINGPERFORMED BY: [facility]ogniiUNC [facility] [id number] Microscopic Examination See below: (Normal) Microscopic Examination MICRON (Normal) Comments: Microscopic follows if indicated. Nitrite, Urine Negative (Normal) Urobilinogen,Semi-Qn 0.2 mg/dL (Normal) Range: 0.0-1.9 Bilirubin Negative (Normal) Occult Blood Negative (Normal) Ketones Negative (Normal) Glucose Negative (Normal) Protein Negative (Normal) WBC Esterase Negative (Normal) Appearance Clear (Normal) Urine-Color Yellow (Normal) pH 7.0 (Normal) Range: 5.0-7.5 Specific [place] 1.017 (Normal) Range: 1.005-1.030 :06 MICROALBUMIN: CREATININE RATIO Comments: PATIENT WAS FASTINGPERFORMED BY: [facility]aultCaverna [facility] [id number] ([id number]) AND (63769) Microalb/Creat Ratio 2.8 {mg/g_creat} (Normal) Range: 0.0-30.0 Microalbumin, Urine 2.6 ug/mL (Normal) Range: 0.0-17.0 Creatinine, Urine 93.5 mg/dL (Normal) Range: 15.0-278.0 :06 METABOLIC PANEL, COMPREHENSIVE Comments: PATIENT WAS FASTINGPERFORMED BY: RUBEN DUNCAN & Todd Peihzi9819 [facility] [id number] (61451) ALT (SGPT) 8 [iU]/L (Normal) Range: 0-32 AST (SGOT) 17 [iU]/L (Normal) Range: 0-40 Alkaline Phosphatase, S 51 [iU]/L (Normal) Range: 39-117 Bilirubin, Total 0.4 mg/dL (Normal) Range: 0.0-1.2 A/G Ratio 2.0 (Normal) Range: 1.1-2.5 Globulin, Total 2.2 g/dL (Normal) Range: 1.5-4.5 Albumin, Serum 4.4 g/dL (Normal) Range: 3.5-5.5 Protein, Total, Serum 6.6 g/dL (Normal) Range: 6.0-8.5 Calcium, Serum 9.7 mg/dL (Normal) Range: 8.7-10.2 Carbon Dioxide, Total 27 mmol/L (Normal) Range: 19-28 Chloride, Serum 100 mmol/L (Normal) Range: 97-108 Potassium, Serum 4.5 mmol/L (Normal) Range: 3.5-5.2 Sodium, Serum 138 mmol/L (Normal) Range: 134-144 BUN/Creatinine Ratio 23 (Normal) Range: 9-23 eGFR If Africn Am 113 mL/min/1.73 (Normal) eGFR If NonAfricn Am 98 mL/min/1.73 (Normal) Creatinine, Serum 0.74 mg/dL (Normal) Range: 0.57-1.00 BUN 17 mg/dL (Normal) Range: 6-24 Glucose, Serum 81 mg/dL (Normal) Range: 65-99 :06 CBC WITH MANUAL DIFF Comments: PATIENT WAS FASTINGPERFORMED BY: [facility] & [id number] [facility] [id number] Information: [id number] ([id number]) Immature Grans (Abs) 0.0 {x10E3/uL} (Normal) Range: 0.0-0.1 Immature Granulocytes 0 % (Normal) Range: 0-2 Baso (Absolute) 0.0 {x10E3/uL} (Normal) Range: 0.0-0.2 Eos (Absolute) 0.2 {x10E3/uL} (Normal) Range: 0.0-0.4 Monocytes(Absolute) 0.5 {x10E3/uL} (Normal) Range: 0.1-0.9 Lymphs (Absolute) 1.8 {x10E3/uL} (Normal) Range: 0.7-3.1 Neutrophils (Absolute) 4.0 {x10E3/uL} (Normal) Range: 1.4-7.0 Basos 0 % (Normal) Range: 0-3 Eos 3 % (Normal) Range: 0-5 Monocytes 7 % (Normal) Range: 4-12 Lymphs 28 % (Normal) Range: 14-46 Neutrophils 62 % (Normal) Range: 40-74 Platelets 302 {x10E3/uL} (Normal) Range: 155-379 RDW 13.2 % (Normal) Range: 12.3-15.4 MCHC 31.9 g/dL (Normal) Range: 31.5-35.7 MCH 30.3 pg (Normal) Range: 26.6-33.0 MCV 95 fL (Normal) Range: 79-97 Hematocrit 38.6 % (Normal) Range: 34.0-46.6 Hemoglobin 12.3 g/dL (Normal) Range: 11.1-15.9 RBC 4.06 {x10E6/uL} (Normal) Range: 3.77-5.28 WBC 6.5 {x10E3/uL} (Normal) Range: 3.4-10.8 29-Vyz-17006:06 LIPID PANEL (17545) Comments: PATIENT WAS FASTINGPERFORMED BY: [facility]CoAc[facility] SystemChmhbo3210 [facility] [id number] LDL/HDL Ratio 1.6 {ratio_units} (Normal) Range: 0.0-3.2 LDL Cholesterol Calc 89 mg/dL (Normal) Range: 0-99 VLDL Cholesterol [place] 15 mg/dL (Normal) Range: 5-40 HDL Cholesterol 57 mg/dL (Normal) Comments: According to ATP-III Guidelines, HDL-C >59 mg/dL is considered anegative risk factor for CHD. Cholesterol, Total 161 mg/dL (Normal) Range: 100-199 Triglycerides 76 mg/dL (Normal) Range: 0-149 44-Ess-053403:18 HEPATIC FUNCTION PANEL Comments: PATIENT WAS FASTINGPERFORMED BY: [facility].comAsc[facility]6370 [facility] [id number] ([id number]) ALT (SGPT) 13 [iU]/L (Normal) Range: 0-32 AST (SGOT) 20 [iU]/L (Normal) Range: 0-40 Alkaline Phosphatase, S 59 [iU]/L (Normal) Range: 25-150 Bilirubin, Direct 0.12 mg/dL (Normal) Range: 0.00-0.40 Bilirubin, Total 0.4 mg/dL (Normal) Range: 0.0-1.2 Albumin, Serum 4.5 g/dL (Normal) Range: 3.5-5.5 Protein, Total, Serum 6.7 g/dL (Normal) Range: 6.0-8.5 :18 Lipid Panel (71602) Comments: PATIENT WAS FASTINGPERFORMED BY: [facility] ToddAcuteCare Health SystemNbfkem4296 [facility] [id number] Information: [id number] LDL/HDL Ratio 1.5 {ratio_units} (Normal) Range: 0.0-3.2 LDL Cholesterol Calc 107 mg/dL (Abnormal) Range: 0-99 VLDL Cholesterol [place] 16 mg/dL (Normal) Range: 5-40 HDL Cholesterol 72 mg/dL (Normal) Comments: According to ATP-III Guidelines, HDL-C >59 mg/dL is considered anegative risk factor for CHD. Triglycerides 82 mg/dL (Normal) Range: 0-149 Cholesterol, Total 195 mg/dL (Normal) Range: 100-199 :44 LIVER BID 0.11 mg/dL (Normal) Range: 0.00-0.30 BIT 0.40 mg/dL (Normal) Range: 0.00-1.00 ALT 45 U/L (Normal) Range: 12-78 ALK 79 U/L (Normal) Range: 50-136 AST 31 U/L (Normal) Range: 15-37 ALB 4.0 g/dL (Normal) Range: 3.4-5.0 TPROT 7.7 g/dL (Normal) Range: 6.4-8.2 :36 TSH (69896) Comments: PATIENT WAS FASTINGPERFORMED BY: [facility]6370 [facility] [id number] TSH 1.270 {uIU/mL} (Normal) Range: 0.450-4.500 :36 Vitamin D Hydroxy (01289) Comments: PATIENT WAS FASTINGPERFORMED BY: [facility]6370 [facility] [id number] Vitamin D, 25-Hydroxy 43.2 ng/mL (Normal) Range: 30.0-100.0 Comments: Vitamin D deficiency has been defined by the [place] Healthcarecine and an Endocrine Society practice guideline as alevel of serum 25-OH vitamin D less than 20 ng/mL (1,2).The Endocrine Society went on to further define vitamin Dinsufficiency as a level between 21 and 29 ng/mL (2).1. IOM ([place] of Medicine). 2010. Dietary reference intakes for calcium and D. [place]: The National Academies Press.2. Krystal MF, Ashtyn NC, Cassandra FLEMING, et al. Evaluation, treatment, and prevention of vitamin D deficiency: an Endocrine Society clinical practice guideline. JCEM. 2010; 96(7):1911-30. :36 METABOLIC PANEL, Comments: PATIENT WAS FASTINGPERFORMED BY: [facility]6370 [facility] [id number] Information: [id number] COMPREHENSIVE ([id number]) ALT (SGPT) 38 [iU]/L (Abnormal) Range: 0-32 AST (SGOT) 51 [iU]/L (Abnormal) Range: 0-40 Alkaline Phosphatase, S 84 [iU]/L (Normal) Range: 25-150 A/G Ratio 1.4 (Normal) Range: 1.1-2.5 Bilirubin, Total 0.3 mg/dL (Normal) Range: 0.0-1.2 Globulin, Total 2.8 g/dL (Normal) Range: 1.5-4.5 Albumin, Serum 4.0 g/dL (Normal) Range: 3.5-5.5 Protein, Total, Serum 6.8 g/dL (Normal) Range: 6.0-8.5 Calcium, Serum 9.2 mg/dL (Normal) Range: 8.7-10.2 Carbon Dioxide, Total 25 mmol/L (Normal) Range: 20-32 Chloride, Serum 100 mmol/L (Normal) Range: 97-108 Potassium, Serum 4.2 mmol/L (Normal) Range: 3.5-5.2 Sodium, Serum 140 mmol/L (Normal) Range: 134-144 BUN/Creatinine Ratio 17 (Normal) Range: 9-23 eGFR If Africn Am 118 mL/min/1.73 (Normal) eGFR If NonAfricn Am 102 mL/min/1.73 (Normal) BUN 12 mg/dL (Normal) Range: 6-24 Creatinine, Serum 0.72 mg/dL (Normal) Range: 0.57-1.00 Glucose, Serum 92 mg/dL (Normal) Range: 65-99 35-Yds-917036:36 LIPID PANEL (33224) Comments: PATIENT WAS FASTINGPERFORMED BY: [facility]6370 [facility] [id number] LDL Cholesterol Calc 88 mg/dL (Normal) Range: 0-99 LDL/HDL Ratio 1.7 {ratio_units} (Normal) Range: 0.0-3.2 HDL Cholesterol 53 mg/dL (Normal) Comments: According to ATP-III Guidelines, HDL-C >59 mg/dL is considered anegative risk factor for CHD. Triglycerides 82 mg/dL (Normal) Range: 0-149 VLDL Cholesterol [place] 16 mg/dL (Normal) Range: 5-40 Cholesterol, Total 157 mg/dL (Normal) Range: 100-199 80-Zeg-856902:19 MYOCARD PERF STRESS/REST [facility] Radiology Report See Note (Normal) Comments: MYOCARDIAL PERFUSION SCAN TECHNIQUEThe patient was injected with 10.7 mCi of Tc99m Cardiolite andsubsequently rest SPECT Cardiolite nuclear imaging was obtained in thehorizontal long, vertical long and short axes views. The patientexercised on a Krishna protocol for 10 minutes 15 seconds achieving a peakheart rate of 187 beats per minute (105% predicted maximum heart rate)with a peak blood pressure of 164/86 mmHg and a peak MET capacity of 12METs. The patient was injected with 32.7 mCi of Tc99m Cardiolite andsubsequently stress SPECT Cardiolite nuclear imaging was obtained in thehorizontal long, jackie tical long and short axes views. Gated Cardiolitestudy at peak stress was obtained. INTERPRETATIONRest and stress SPECT Cardiolite nuclear imaging demonstrate extracardiac/hepatic and gastrointestinal tracer uptake noted near the inferiorsegments. There was also notation of an area of diminished tracer uptakein portions of the basal anteroseptum/basal inferior septum as well asthe distal anterosepta l segments. Status post stress there is notationof diminished tracer uptake in portions of the basal anteroseptum/inferior septum. Otherwise the previously noted changes in the distalanteroseptal area s appear to be improved and/or normalized. There is endsystolic thickening and brightening. The gated Cardiolite studydemonstrates myocardial thickening and inward wall motion. The reportedLVEF is 63 %. The aforementioned findings appear compatible with theeffects of shifting soft tissue attenuation/artifact being somewhat moreprominent at rest as opposed to stress with no myocardial perfusionchang es considered diagnostic for stress induced myocardial ischemia orprevious myocardial injury/infarction. IMPRESSION1. Rest and stress SPECT Cardiolite nuclear imaging demonstratemyocardial perfusion ch anges appearing compatible with the effects ofshifting soft tissue attenuation/artifact being more prominent at rest asopposed to stress with no myocardial perfusion changes considereddiagnostic for str ess induced myocardial ischemia or previous myocardialinjury/infarction.2. The gated Cardiolite study reports an LVEF of 63%. Comment: The above ETT / imaging study was discussed with Dr. Bills. Dic tated on 05/26/12 0951 by Yonathan Reed MDTranscribed on 05/26/12 1219 by Elmira MCCRACKEN by Yonathan Reed MD on 05/26/12 1236 Sign by: Yonathan Reed MD 75-Cvt-713018:25 Systemic Lupus Profile Comments: PATIENT NOT FASTINGPERFORMED BY: [facility]CoAcuteCare Health SystemDxczgy8182 [facility] [id number] Information: [id number] (07890) Anti-DNA (DS) Ab Qn 1 {IU/mL} (Normal) Range: 0-9 Comments: Negative <5 Equivocal 5 - 9 Positive >9 Sjogren's Anti-SS-B <0.2 {AI} (Normal) Range: 0.0-0.9 Antichromatin Antibodies <0.2 {AI} (Normal) Range: 0.0-0.9 RA Latex Turbid. 11.4 {IU/mL} (Normal) Range: 0.0-13.9 Sjogren's Anti-SS-A <0.2 {AI} (Normal) Range: 0.0-0.9 Saavedra Antibodies <0.2 {AI} (Normal) Range: 0.0-0.9 FLOOR CLEANER Antibodies 1.4 {AI} (Abnormal) Range: 0.0-0.9 :59 CALCIFIDIOL (87416) VIT D 25 Comments: PATIENT NOT FASTINGPERFORMED BY: [facility] Todd Randrh1110 [facility] [id number] Vitamin D, 25-Hydroxy 36.6 ng/mL (Normal) Range: 30.0-100.0 Comments: Vitamin D deficiency has been defined by the [place] Healthcarecine and an Endocrine Society practice guideline as alevel of serum 25-OH vitamin D less than 20 ng/mL (1,2).The Endocrine Society went on to further define vitamin Dinsufficiency as a level between 21 and 29 ng/mL (2).1. IOM ([place] of Medicine). 2010. Dietary reference intakes for calcium and D. [place]: The National Academies Press.2. Krystal MF, Ashtyn NC, Cassandra FLEMING, et al. Evaluation, treatment, and prevention of vitamin D deficiency: an Endocrine Society clinical practice guideline. JCEM. 2010; 96(7):1911-30. :59 Folate (83682) Comments: PATIENT NOT FASTINGPERFORMED BY: [facility]Asc[facility]6370 [facility] [id number] Folate (Folic Acid), Serum >19.9 ng/mL (Normal) Comments: A serum folate concentration of less than 3.1 ng/mL isconsidered to represent clinical deficiency. :59 VITAMIN B-12 (CYANOCOBALAMIN) Comments: PATIENT NOT FASTINGPERFORMED BY: RUBEN [facility] Escftr[address]Dublin [place] [id number] (16948) Vitamin B12 613 pg/mL (Normal) Range: 211-946 :59 TSH (84437) Comments: PATIENT NOT FASTINGPERFORMED BY: CB [facility] Lntrxy8423 [address] RoadDublin [place] [id number] TSH 1.480 {uIU/mL} (Normal) Range: 0.450-4.500 :59 SED RATE ERYTHROCYTE (07146) Comments: PATIENT NOT FASTINGPERFORMED BY: CB [facility] Exkmqp13[address]Dublin [place] [id number] Sedimentation Rate-Westergren 2 mm/h (Normal) Range: 0-32 :59 RHEUMATOID FACTOR-QUANT (25724) Comments: PATIENT NOT FASTINGPERFORMED BY: CB [facility] Htpydu9013 [address] RoadDublin [place] [id number] RA Latex Turbid. 10.5 {IU/mL} (Normal) Range: 0.0-13.9 :59 METABOLIC PANEL, Comments: PATIENT NOT FASTINGPERFORMED BY: CB [facility] Txrbhu32[address] RoadDublin [place] [id number] Information: [id number] COMPREHENSIVE (52462) ALT (SGPT) 18 [iU]/L (Normal) Range: 0-32 Comments: Please note reference interval change Alkaline Phosphatase, S 49 [iU]/L (Normal) Range: 25-150 AST (SGOT) 25 [iU]/L (Normal) Range: 0-40 Bilirubin, Total 0.4 mg/dL (Normal) Range: 0.0-1.2 A/G Ratio 1.7 (Normal) Range: 1.1-2.5 Globulin, Total 2.7 g/dL (Normal) Range: 1.5-4.5 Albumin, Serum 4.7 g/dL (Normal) Range: 3.5-5.5 Protein, Total, Serum 7.4 g/dL (Normal) Range: 6.0-8.5 Calcium, Serum 9.8 mg/dL (Normal) Range: 8.7-10.2 Carbon Dioxide, Total 24 mmol/L (Normal) Range: 20-32 Chloride, Serum 103 mmol/L (Normal) Range: 97-108 Potassium, Serum 4.4 mmol/L (Normal) Range: 3.5-5.2 BUN/Creatinine Ratio 18 (Normal) Range: 9-23 Sodium, Serum 143 mmol/L (Normal) Range: 134-144 eGFR If Africn Am 94 mL/min/1.73 (Normal) Creatinine, Serum 0.87 mg/dL (Normal) Range: 0.57-1.00 eGFR If NonAfricn Am 82 mL/min/1.73 (Normal) BUN 16 mg/dL (Normal) Range: 6-24 Glucose, Serum 88 mg/dL (Normal) Range: 65-99 :59 C-REACTIVE PROTEIN (07995) Comments: PATIENT NOT FASTINGPERFORMED BY: [facility] Icon TechnologiesUNC Hospitals Hills[facility] Campus [id number] C-Reactive Protein, Quant 2.6 mg/L (Normal) Range: 0.0-4.9 :59 CBC (AUTO) (19222) Comments: PATIENT NOT FASTINGPERFORMED BY: [facility]UNC [facility] [id number] Platelets 370 {x10E3/uL} (Normal) Range: 140-415 RDW 13.4 % (Normal) Range: 12.3-15.4 MCH 30.9 pg (Normal) Range: 26.6-33.0 MCHC 33.2 g/dL (Normal) Range: 31.5-35.7 MCV 93 fL (Normal) Range: 79-97 Hematocrit 39.2 % (Normal) Range: 34.0-46.6 Hemoglobin 13.0 g/dL (Normal) Range: 11.1-15.9 RBC 4.21 {x10E6/uL} (Normal) Range: 3.77-5.28 WBC 6.7 {x10E3/uL} (Normal) Range: 4.0-10.5 :59 ELVA (ANTINUCLEAR ANTIBODY) Comments: PATIENT NOT FASTINGPERFORMED BY: [facility]70 [facility] [id number] 34431) ELVA Direct Positive (Abnormal) 22-May-20120:01 DDIMQ <0.22 {FEUug/mL} (Normal) Comments: The date and/or time of collection was not indicated ontherequisition as required by state and federal law. The dateof receipt of the specimen was used as the collection dateif not supplied. Range: 0.22-0.48 Comments: NORMAL D-Dimer level indicates no DVT or PE. Plan of Care Name Dates Details Instructions C. difficile colitis : Continue Current Prescription(s) Indication: C. difficile colitis Hypertension, benign : Follow up in 6 months Indication: Hypertension, benign Hyperlipidemia, unspecified : Cholesterol mgmt Indication: Hyperlipidemia, unspecified Hypertension, benign : HTN/CAD Red Flags Indication: Hypertension, benign Physical exam : Reviewed Lab Indication: Physical exam BMI 21.0-21.9, adult : Eprescribed prescriptions (G8553) Indication: BMI 21.0-21.9, adult Hypertension, benign : HTN/CAD Red Flags Indication: Hypertension, benign Hyperlipidemia, unspecified : Cholesterol mgmt Indication: Hyperlipidemia, unspecified Physical exam WITHOUT abnormal findings (Renamed from Encounter for routine adult health examination without abnormal findings) : Follow up in 6 months- gen med Indication: Physical exam WITHOUT abnormal findings (Renamed from Encounter for routine adult health examination without abnormal findings) Physical exam WITHOUT abnormal findings (Renamed from Encounter for routine adult health examination without abnormal findings) : Reviewed Lab Indication: Physical exam WITHOUT abnormal findings (Renamed from Encounter for routine adult health examination without abnormal findings) Hypertension, benign : Follow up in 6 months Indication: Hypertension, benign Non-smoker : Eprescribed prescriptions (G8553) Indication: Non-smoker Hypertension, benign : Diet, Exercise, and Wt loss Indication: Hypertension, benign Hypertension, benign : HTN/CAD Red Flags Indication: Hypertension, benign Hyperlipidemia, unspecified : Eprescribed prescriptions (G8553) Indication: Hyperlipidemia, unspecified Hypertension, benign : Follow up in 6 months Indication: Hypertension, benign Hyperlipidemia, unspecified : Reviewed Lab Indication: Hyperlipidemia, unspecified Hypertension, benign : Eprescribed prescriptions (G8553) Indication: Hypertension, benign Hypertension, benign : High Blood Pressure (Essential Hypertension) *: blood Indication: Hypertension, benign Hypertension, benign : Follow up in 6 months Indication: Hypertension, benign Encounter for immunization : Shingles Vaccine Education 2005 Indication: Encounter for immunization Hypertension, benign : HTN/CAD Red Flags Indication: Hypertension, benign Hyperlipidemia, unspecified : Cholesterol mgmt Indication: Hyperlipidemia, unspecified Hyperlipidemia, unspecified : Eprescribed prescriptions (G8553) Indication: Hyperlipidemia, unspecified Hyperlipidemia, unspecified : Follow up in 1 year Indication: Hyperlipidemia, unspecified Ulcerative colitis : Reviewed Diamond Sander Letter: Dr Nam and plan for scope 2013 Indication: Ulcerative colitis Hyperlipidemia, unspecified : Cholesterol mgmt Indication: Hyperlipidemia, unspecified Hypertension, benign : HTN/CAD Red Flags Indication: Hypertension, benign Hyperlipidemia, unspecified : Cholesterol mgmt Indication: Hyperlipidemia, unspecified Hyperlipidemia, unspecified : Reviewed Lab Indication: Hyperlipidemia, unspecified Abnormal blood chemistry : Reviewed Lab Indication: Abnormal blood chemistry CHEST PAIN : Reviewed Diagnostic Tests Indication: CHEST PAIN CHEST PAIN : Follow up - Make appt after diagnostic tests Indication: CHEST PAIN Palpitations : *palpitation discusssion Indication: Palpitations FATIGUE : *fatigue education Indication: FATIGUE Palpitations : Heart Palpitations *: heart palpitations Indication: Palpitations Planned Observations CALCIFIDIOL (59145) VIT D 25Indication: Vitamin D deficiency On: :37 Request URINALYSIS, W/ MICRO (75490)Indication: Hypertension, benign On: :36 Request MICROALBUMIN: CREATININE RATIO (78187) AND (89896)Indication: Hypertension, benign On: 97-Tvd-11612:36 Request METABOLIC PANEL, COMPREHENSIVE (29811)Indication: Hypertension, benign On: :36 Request CBC W/AUTO DIFF WBC (22190)Indication: Hypertension, benign On: :36 Request LIPOPROTEIN, BLD, BY NMR (98004)Indication: Hyperlipidemia, unspecified On: 71-Rca-69270:36 Request CALCIFEDIOL (19483)Indication: Vitamin D deficiency On: 8-Rrr-469401:56 Request MICROALBUMIN: CREATININE RATIO (91455) AND (88371)Indication: Hypertension, benign On: 8-Dmc-869732:56 Request URINALYSIS (09448)Indication: Hypertension, benign On: :56 Request TSH (34022)Indication: Hypertension, benign On: 0-Bbo-721842:55 Request CBC (Auto) (08260)Indication: Hypertension, benign On: 0-Vab-277383:55 Request Metabolic Panel, Comprehensive (67495)Indication: Hypertension, benign On: :55 Request Lipid Panel (14833)Indication: Hyperlipidemia, unspecified On: 3-Tjh-304348:55 Request LIPID PANEL (27415)Indication: Hyperlipidemia, unspecified On: 05-Nov-2017 Request TSH (28923)Indication: Hyperlipidemia, unspecified On: 05-Nov-2017 Request Vitamin D Hydroxy (29840)Indication: Vitamin D deficiency On: :24 Request TSH (47400)Indication: Hyperlipidemia, unspecified On: :23 Request MICROALBUMIN: CREATININE RATIO (13669) AND (45921)Indication: Hypertension, benign On: :23 Request METABOLIC PANEL, COMPREHENSIVE (44549)Indication: Hypertension, benign On: :23 Request LIPID PANEL (57740)Indication: Hypertension, benign On: :23 Request CBC with auto diff (61247)Indication: Hypertension, benign On: :23 Request HEPATIC FUNCTION PANEL (23587)Indication: Elevated liver enzymes On: 79-Ooe-912429:55 Request Comments: recheck in 2 weeks DNA ANTIBODY-NATV/DBL ST (93371) test code 648195Mlzvuwbcqw: ELVA positive On: 67-Xey-720861:14 Request ANTI-FLOOR CLEANER (ANTI RIBONUCLEAR PROTEIN ANTIBODY) (02961) test code 248111Evkhyikptq: ELVA positive On: 50-Gfc-668811:14 Request ANTI-Sm (ANTI SAAVEDRA ANTIBODY) (16639) test code 639294Ybrlsrtdyu: ELVA positive On: 70-Rbc-694760:14 Request EXTRCTBL NUCLR ANTGEN EA (31257) test code 903057Xmlvneoami: ELVA positive On: 87-Nti-595920:14 Request RHEUMATOID FACTOR-QUANT (23539) test code 349016Thknmmlsyi: ELVA positive On: 28-Ksl-189984:14 Request D-Dimer (75426)Indication: CHEST PAIN On: :35 Request Planned Procedures ELECTROCARDIOGRAM, COMPLETE (ECG) On: 29-May-2018 Intent (11310)By: Gloria Bills DO Comments: nsr no acute chg DOGloria ELECTROCARDIOGRAM, COMPLETE (ECG) On: 09-May-2017 Intent (10061)By: Gloria Bills DO Comments: nsr no acute chg Gloria TOBAR IMMUNIZ ADMNIN, 1 VAC, SNGL/COMBO On: 25-Nov-2014 Intent (43051)By: Gloria Bills DO Comments: Lot #:[id number] date:8-95-2820Dlschw given: 1ml Route: SC Site given:left upper arm Given by: Gloria paz DO [place] V[place], [place] (00419)By: Sanju TOBAR, On: 25-Nov-2014 Intent Gloria Moore DO Eprescribed prescriptions (G8553)By: On: 06-Oct-2013 Intent Gloria Bills DO, DO, Kathleen TDAP VACCINE >7 IM (88404)By: Sanju On: 06-Oct-2013 Intent Gloria TOBAR DO, Kathleen Comments: Lot:[id number]:10/15/15Dose:0.5mgRoute:imSite:l armGiven By:CELESTINE signed EKG (39364)By: Gloria Bills DO On: 06-Oct-2013 Intent Gloria Bills DO Comments: nsr no acute chg /Stress SPECT/TreadmillBy: Sanju TOBAR, On: 22-May-2012 Intent Gloria Moore DO Echo CompleteBy: Gloria Bills DO On: 22-May-2012 Intent Gloria Bills DO Holter Moniter (62858)By: Sanju TOBAR, On: 22-May-2012 Intent Gloria Moore DO EKG (87908)By: Janie Chappell On: 22-May-2012 Intent Comments: nsr no acute chg TDAP VACCINE >7 IM (99354)By: Ta, On: 22-May-2012 Intent Janie Comments: Lot #[id number]-2/19/15Site-left deltoidgiven by: Antonia Solorzano LPN FLU VAC, SPLIT, >3 YEARS, INTRAMUSC On: 22-May-2012 Intent (16484)By: Janie Chappell Comments: doesnt get them Eprescribed prescriptions (G8553)By: On: 22-May-2012 Intent Janie Chappell Instructions Name Dates Details BMI 22.0-22.9, adult : How to access health information online Indication: BMI 22.0-22.9, adult BMI 22.0-22.9, adult : How to access health information online - Detail Indication: BMI 22.0-22.9, adult BMI 22.0-22.9, adult : Patient Instructions Indication: BMI 22.0-22.9, adult BMI 21.0-21.9, adult : How to access health information online Indication: BMI 21.0-21.9, adult BMI 21.0-21.9, adult : How to access health information online - Detail Indication: BMI 21.0-21.9, adult BMI 21.0-21.9, adult : Patient Instructions Indication: BMI 21.0-21.9, adult Non-smoker : How to access health information online Indication: Non-smoker Non-smoker : How to access health information online - Detail Indication: Non-smoker Non-smoker : Patient Instructions Indication: Non-smoker Non-smoker : Patient Instructions Indication: Non-smoker Body mass index (BMI) 23.0-23.9, adult : How to access health information online Indication: Body mass index (BMI) 23.0-23.9, adult Body mass index (BMI) 23.0-23.9, adult : How to access health information online - Detail Indication: Body mass index (BMI) 23.0-23.9, adult Body mass index (BMI) 23.0-23.9, adult : Patient Instructions Indication: Body mass index (BMI) 23.0-23.9, adult Non-smoker : How to access health information online Indication: Non-smoker Non-smoker : How to access health information online - Detail Indication: Non-smoker Non-smoker : Patient Instructions Indication: Non-smoker Hyperlipidemia, unspecified : How to access health information online Indication: Hyperlipidemia, unspecified Hyperlipidemia, unspecified : How to access health information online - Detail Indication: Hyperlipidemia, unspecified Hyperlipidemia, unspecified : Patient Instructions Indication: Hyperlipidemia, unspecified Hypertension, benign : How to access health information online Indication: Hypertension, benign Hypertension, benign : How to access health information online - Detail Indication: Hypertension, benign Hypertension, benign : Patient Instructions Indication: Hypertension, benign Hyperlipidemia, unspecified : Patient Instructions Indication: Hyperlipidemia, unspecified FAMILY HISTORY OF ISCHEMIC HEART DISEASE : Patient Instructions Indication: FAMILY HISTORY OF ISCHEMIC HEART DISEASE Palpitations : Patient Instructions Indication: Palpitations Encounters Office Visit On: 29-May-2018 7:07 Encounter Reason: Follow up for chronic medical issues - The patient feels well with minor complaints, has good energy level and is sleeping well. Patient has been compliant with instructions. Current medication use: no End: 29-May-2018 8:43 side effects and compliant with dosing regimen. Patient sleeps 7 hours per night. Nutrition: balanced diet and supplemental vitamins. The medical issues the patient is following up for include All ident ified problems below, high blood pressure and high cholesterol. weight :.Encounter Diagnosis: Non-smoker, BMI 22.0-22.9, adult, Hypertension, benign, Vitamin D deficiency (268.9), Hyperlipidemia, unspecified, Ulcerative colitis (556.9), C. difficile colitis Comprehensive [facility] Office Visit On: 19-Dec-2017 7:19 Encounter Reason: Physical female exam - Last seen between 6-12 months ago. General health: feels well with no complaints, has good energy level and is sleeping well. The patient's appetite is normal. Nutrition: normal/a End: 19-Dec-2017 7:59 dequate. Exercises 0 days per week. Sleeps on average 7 hours per night. Normal bowel and bladder habits. Safety measures include appropriate use of safety belts and home smoke detectors. There are no c urrent emotional problems. screening, mammography (04/2017) and screening, Pap smear (04/2017).Encounter Diagnosis: Non-smoker, BMI 21.0-21.9, adult, Physical exam [facility] Phone Encounter On: 12-Dec-2017 15:54 Encounter Diagnosis: Hyperlipidemia, unspecified, Hypertension, benign, Vitamin D deficiency (268.9) End: 12-Dec-2017 15:56 [facility] Office Visit On: 09-May-2017 7:22 Encounter Reason: Follow up for chronic medical issues - The patient feels well with minor complaints, has good energy level and is sleeping well. Patient has been compliant with instructions. Current medication use: no End: 09-May-2017 8:21 side effects and compliant with dosing regimen. Patient sleeps 7 hours per night. Nutrition: balanced diet and supplemental vitamins. The medical issues the patient is following up for include All ident ified problems below, high blood pressure and high cholesterol. weight :.Encounter Diagnosis: Non-smoker, Body mass index (BMI) 23.0-23.9, adult, Hyperlipidemia, unspecified, Hypertension, benign, Vitamin D deficiency (268.9), Ulcerative colitis (556.9) [facility] Office Visit On: 04-Nov-2016 14:46 Encounter Reason: Physical female exam - General health: feels well with minor complaints, has good energy level and is sleeping well. The patient's appetite is normal. Nutrition: normal/adequate. Exercises 0 days per we End: 04-Nov-2016 15:38 ek. Sleeps on average 7 hours per night. Normal bowel and bladder habits. Safety measures include appropriate use of safety belts and home smoke detectors. There are no current emotional problems.Encounter Diagnosis: Non-smoker, Body mass index (BMI) 23.0-23.9, adult, Physical exam WITHOUT abnormal findings (Renamed from Encounter for routine adult health examination without abnormal findings), Hypertension, benign, Hyperlipidemia, unspecified [facility] Lab Order On: 21-Oct-2016 10:41 Encounter Diagnosis: Hyperlipidemia, unspecified, Hypertension, benign, Vitamin D deficiency (268.9) End: 21-Oct-2016 10:50 [facility] Office Visit On: 31-May-2016 7:59 [facility] End: 31-May-2016 8:00 Office Visit On: 31-May-2016 7:28 Encounter Reason: Follow up for chronic medical issues - The patient feels well with minor complaints, has good energy level and is sleeping well. Patient has been compliant with instructions. Current medication use: no End: 31-May-2016 7:57 side effects and compliant with dosing regimen. Patient sleeps 7 hours per night. Nutrition: balanced diet and supplemental vitamins. The medical issues the patient is following up for include All ident ified problems below, high blood pressure and high cholesterol. weight :.Encounter Diagnosis: Body mass index (BMI) 23.0-23.9, adult, Non-smoker, Need for prophylactic vaccination and inoculation against influenza, Influenza vaccination declined (Renamed from Refused influenza vaccine), Vitamin D deficiency (268.9), Hypertension, benign, Hyperlipidemia, unspecified [facility] Office Visit On: 01-Dec-2015 7:07 Encounter Reason: Follow up for chronic medical issues - The patient feels well with minor complaints, has good energy level and is sleeping well. Patient has been compliant with instructions. Current medication use: no End: 01-Dec-2015 16:04 side effects and compliant with dosing regimen. Patient sleeps 7 hours per night. Nutrition: balanced diet and supplemental vitamins. The medical issues the patient is following up for include All ident ified problems below, high blood pressure and high cholesterol. weight :.Encounter Diagnosis: Hyperlipidemia, unspecified, Hypertension, benign, Vitamin D deficiency (268.9), Ulcerative colitis (556.9), Elevated liver enzymes (790.4) [facility] Office Visit On: 02-Jun-2015 7:01 Encounter Reason: Follow up for chronic medical issues - The patient feels well with minor complaints, has good energy level and is sleeping well. Patient has been compliant with instructions. Current medication use: no End: 02-Jun-2015 12:41 side effects and compliant with dosing regimen. Patient sleeps 7 hours per night. Nutrition: balanced diet and supplemental vitamins. The medical issues the patient is following up for include All ident ified problems below and high cholesterol. weight :.Encounter Diagnosis: Hypertension, benign, Hyperlipidemia, unspecified, Vitamin D deficiency (268.9), Elevated liver enzymes (790.4) [facility] Office Visit On: 25-Nov-2014 7:01 Encounter Reason: Follow up for chronic medical issues - The patient feels well with minor complaints, has good energy level and is sleeping well. Patient has been compliant with instructions. Current medication use: no End: 25-Nov-2014 10:48 side effects and compliant with dosing regimen. Patient sleeps 7 hours per night. Nutrition: balanced diet and supplemental vitamins. The medical issues the patient is following up for include All ident ified problems below, high blood pressure and high cholesterol. weight :.Encounter Diagnosis: Hyperlipidemia, Unspecified (272.4), Hypertension,benign(401.1), Vitamin D deficiency (268.9), Ulcerative colitis (556.9), Elevated liver enzymes (790.4), SHINGLES,NEED FOR PROPHYLACTIC VACCINATION AND INOCULATION AGAINST (V05.8) [facility] Office Visit On: 06-Oct-2013 8:21 Encounter Reason: Follow up for chronic medical issues - The patient feels well with minor complaints, has good energy level and is sleeping well. Patient has been compliant with instructions. Current medication use: no End: 06-Oct-2013 12:42 side effects and compliant with dosing regimen. Patient sleeps 7 hours per night. Nutrition: balanced diet and supplemental vitamins. The medical issues the patient is following up for include All ident ified problems below, high blood pressure and high cholesterol. weight :.Encounter Diagnosis: Hyperlipidemia, Unspecified (272.4), Vitamin D deficiency (268.9), Hypertension,benign(401.1), Ulcerative colitis (556.9) [facility] Phone Encounter On: 14-Oct-2012 8:25 Encounter Diagnosis: Hyperlipidemia, Unspecified (272.4) End: 14-Oct-2012 8:30 [facility] Lab Order On: 29-Sep-2012 14:54 Encounter Diagnosis: Elevated liver enzymes (790.4) End: 29-Sep-2012 14:56 [facility] Office Visit On: 25-Sep-2012 9:57 Encounter Reason: Follow up for chronic medical issues - The patient feels well with minor complaints, has good energy level and is sleeping well. Patient has been compliant with instructions. Current medication use: no End: 25-Sep-2012 10:22 side effects and compliant with dosing regimen. Patient sleeps 7 hours per night. Nutrition: inappropriate diet and supplemental vitamins. The medical issues the patient is following up for include All identified problems below, high blood pressure and high cholesterol. weight :.Encounter Diagnosis: Hyperlipidemia, Unspecified (272.4), Hypertension,benign(401.1), Vitamin D deficiency (268.9) [facility] Office Visit On: 29-May-2012 14:37 Encounter Reason: Follow up tests - Date: (May, 2012--labs, stress and echo).Encounter Diagnosis: CHEST PAIN (786.59), FAMILY HISTORY OF ISCHEMIC HEART DISEASE (V17.3), Ulcerative colitis (556.9), Abnormal Blood Chemistry (790.6), End: 29-May-2012 15:13 Vitamin D deficiency (268.9) [facility] Phone Encounter On: 25-May-2012 18:12 Encounter Diagnosis: ELVA positive (795.79) End: 25-May-2012 18:16 [facility] Office Visit On: 22-May-2012 8:38 Encounter Reason: Fatigue - The onset of the fatigue has been gradual and has been occurring in a persistent pattern for 3 months. The course has been increasing. 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 The symptoms have been associated with dyspnea (more on exertion), while the symptoms have not been associated with abdominal pain, chest pain, cough, depression, fever, insomnia, myalgia, nasal stuffiness, runny nose or sore throat., [ADDITIONAL REASON] Palpitations - Symptoms include palpitations (it is assoc with tightness or pressure in chest area - not exterme but there for a few minutes), forceful heartbeat and skipped beats. Onset was gradual 6 month(s) ago (but over last month really more frequent adn worse -- more intense ). The symptoms occur intermittently. The patient describes this as worsening. Symptoms are exacerbat ed by emotional stress and anxiety. Associated symptoms do not include chest pain, weakness, dizziness, lightheadedness, syncope, leg swelling, nausea or vomiting. The patient is not currently being treated for this problem. Encounter Diagnosis: Palpitations(785.1), Hyperlipidemia, Unspecified (272.4), Hypertension,benign(401.1), NEED FOR PROPHYLACTIC VACCINATION AND INOCULATION AGAINST INFLUENZA (V04.81), PREVENTION OF TETANUS (V03.7), FATIGUE (780.79), FAMILY HISTORY OF ISCHEMIC HEART DISEASE (V17.3), CHEST PAIN (786.59) [facility] Payers Hailey WAGGONER/Sharon Villagran; a guarantor
== END ==
PROVIDERS: Visit Provider Obstetrics & Gynecology
DX: Z12.4 Encounter for screening for malignant neoplasm of cervix (principal)
CPT/HCPCS: 88175; G0145

== ENCOUNTER → 2018-07-31 14:02 | Outpatient (CLI) | payer BC, SELFPAY ==
--- OUTSIDE RECORDS SUMMARY | 2018-10-05 04:17 | XMS RPT_ITS ---
:1970 Author Organization [facility] Support Name Relationship Address Phone GENIE Unavailable [address] + [place] [address] MARGARITA PILLAI Unavailable [address] + [place] [address] KRISHNA VILLAGRAN Unavailable [address] + [place] [address] GENIE Unavailable [address] + [place] [address] MARGARITA PILLAI Unavailable [address] + [place] [address] KRISHNA VILLAGRAN Unavailable [address] + [place] [address] GENIE Unavailable [address] + [place] [address] MARGARITA PILLAI Unavailable [address] + [place] [address] KRISHNA VILLAGRAN Unavailable [address] + [place] [address] GENIE Unavailable [address] + [place] [address] MARGARITA PILLAI Unavailable [address] + [place] [address] KRISHNA VILLAGRAN Unavailable [address] + [place] [address] GENIE Unavailable [address] + [place] [address] MARGARITA PILLAI Unavailable [address] + [place] [address] KRISHNA VILLAGRAN Unavailable [address] + [place] [address] GENIE Unavailable [address] + [place] [address] MARGARITA PILLAI Unavailable [address] + [place] [address] KRISHNA VILLAGRAN Unavailable [address] + [place] [address] GENIE Unavailable [address] + [place] [address] MARGARITA PILLAI Unavailable [address] + [place] [address] KRISHNA VILLAGRAN Unavailable [address] + [place] [address] Care Team Providers Name Role Phone Sanju [...] Giles for screening for Community malignant neoplasm [facility] cervix / Repository Z12.4(ICD-10) 05/27/2018 Unknown R19.7 - Diarrhea, Juan José Nam Active Jayjay unspecified / Community R19.7(ICD-10) Hospital Repository 01/07/2018 Unknown I10 - Essential Sanju, Active Fletcher (primary) Gloria Community hypertension / Hospital I10(ICD-10) Repository PROCEDURES PROCEDURES No Procedure Records FoundRESULTS RESULTS MISCELLANEOUS LAB Collected: 07/31/2018 Status: F Source: JAYJAY PROCEDURE 2:09 PM [facility] REPOSITORY Order Comment: Test(s) Ordered: ANTONINA TPMT ENZYME TYPE CODE TESTS RESULT OUT OF RANGE REFERENCE UNITS LAB L801.1541 Normal [facility] Result Comment: Scanned image report available in EMR Performed By: #### L801.1541 #### [facility] [address] [place], [address] PAP I-G W/RFX HRHPV Collected: 07/29/2018 Status: F Source: JAYJAY 9:15 AM [facility] REPOSITORY Order Comment: CYTOLOGY INFORMATION: - CLINICAL INFORMATION: - DATE LMP/MENOPAUSE: 07/07/18 LMP - COLLECTION VIAL: Thin Prep Vial - COAT CUTTER SOURCE: CERVICAL/ENDOCERVICAL - COLLECTION TECHNIQUE: BRUSH/SPATULA Specimen Comment: [id number] Specimen Comment: Source.............Cervix;Endometrial Specimen Comment: LMP / Prev Treat...NPS=[id number] Specimen Comment: No. of containers..01 ThinPrep Vial [...] Normal PERFORM Comment Result Comment: Yessi Watson Sample [facility] Builder LAB L7400.2575 . Normal TEST METHOD Comment [...] HPV testing was performed. Performed at: - [facility] [id number] Crew Foreman: Bess Cross MD, Phone: [phone] Performed By: #### L7400.0350 #### [facility] (refer to report for specific site) refer to report for address and phone number Observed: 05/26/2018 Status: F Source: JAYJAY CDIFF (MOLECULAR) 8:00 PM [facility] REPOSITORY Cdiff-Molecular Normal Reference Range = Negative RESULTS CALLED TO KOSTAS/ 05/27/18 0991 Margareth Savage. Copy of report sent to Infection Control Printer MS#[id number] 05/27/18 0951 JANALIBERTY. C. Diff DNA Positive-Toxigenic C. Difficile DNA Detected NAAT METHOD Testing was performed using nucleic acid amplification ORGANISM 1: Toxigenic C. difficile DNA Performed By: #### M100.6796 #### [facility] [address] [place], [address] MISCELLANEOUS LAB Collected: 05/18/2018 Status: F Source: JAYJAY PROCEDURE 7:29 AM [facility] REPOSITORY Order Comment: Comments: Q [id number] TUBES Test(s) Ordered: [id number] TUBES TYPE CODE TESTS RESULT OUT OF RANGE REFERENCE UNITS LAB L801.1541 Normal [facility] LAB TEST Result Comment: TEST RESULT UNITS [...] production of interferon gamma. [facility]. ORIGINAL REPORT ON FILE IN LAB CONTAINS ADDITIONAL TEST SITE INFORMATION. Performed By: #### L801.1541 #### [facility] [address] [place], [address] DOWNTIME REPORT Observed: 01/01/2018 Status: F Source: JAYJAY 1:11 PM [facility] REPOSITORY [facility] Medical Records Department [address] [place] [address] Downtime Report MR#: [id number] Acct: [id number] Name: KAYLYN VILLAGRAN Rep #: [id number] : 1970 47 From: Arjun Foy PCP: Gloria Bills DO Status: REG CLI This patient was seen during an EMR downtime December 15, 2017 - December 22, 2017. This patient may have a combination of paper and electronic documentation or all paper documentation. All documentation is viewable within the e-chart portion of [employer] for each patient visit. URINALYSIS, COMPLETE Collected: 12/17/2017 Status: F Source: [place] 7:31 AM [facility] REPOSITORY Order Comment: RESULT(S) PREVIOUSLY REPORTED [...] 0 SEEN Performed By: #### L400.0001 #### [facility] [address] [facility]. [place], [place], [address] VITAMIN D,25 HYDROXY Collected: 12/17/2017 Status: F Source: [place] 7:15 AM [facility] REPOSITORY TYPE CODE TESTS RESULT OUT [...] DURING DOWNTIME. Performed By: #### L506.1000 #### [facility] [address] [facility] [place], [address] COMPREHENSIVE METABOLIC Collected: 12/17/2017 Status: F Source: [facility] 7:15 AM [facility] REPOSITORY Order Comment: RESULT(S) PREVIOUSLY REPORTED [...] Performed By: #### L500.4050, L500.4100, L501.9520 #### [facility] [address] [place], [address] LIPID PROFILE Collected: 12/17/2017 Status: F Source: [place] 7:15 AM [facility] REPOSITORY Order Comment: RESULT(S) PREVIOUSLY REPORTED [...] Performed By: #### L500.4050, L500.4100, L501.9520 #### [facility] [address] [place], [place], [address] THYROID STIM HORMONE Collected: 12/17/2017 Status: F Source: JAYJAY (TSH) 7:15 AM [facility] REPOSITORY Order Comment: RESULT(S) PREVIOUSLY REPORTED ON MANUAL REQUISITION DURING DOWNTIME. TYPE CODE TESTS RESULT OUT OF RANGE REFERENCE UNITS LAB L501.9520 0.358-3.74 uIU/mL Normal TSH 2.18 Performed By: #### L500.4050, L500.4100, L501.9520 #### [facility] [address] [place], [place], [address] CBC-COMPLETE BLOOD CNT Collected: 12/17/2017 Status: F Source: JAYJAY NO DIFF 7:15 AM [facility] REPOSITORY Order Comment: RESULT(S) PREVIOUSLY REPORTED [...] MPV 10.8 Performed By: #### L100.0500 #### [facility] [address] [place], [address] MICROALB:CREAT Collected: 12/17/2017 Status: F Source: JAYJAY RATIO,RANDOM UR 7:15 AM [facility] REPOSITORY Order Comment: RESULT(S) PREVIOUSLY REPORTED ON MANUAL REQUISITION DURING DOWNTIME. TYPE CODE TESTS RESULT OUT OF RANGE REFERENCE UNITS LAB L501.1200 NO RANGE EST. mg/dL Normal UR CREAT 190.00 LAB L502.0500 NO RANGE EST. mg/L Normal 13.0 MICROALBUMIN ,UR LAB L502.0600 <30 mg/g CRE mg/g CRE Normal 6.0 MALB:CREAT Performed By: #### L502.0250 #### [facility] [address] [place], [address] ALLERGIES ALLERGIES DATE TYPE / CODE NAME / CODE REACTION SEVERITY SOURCE 02/21/2015 Drug No Known Unknown [facility] Allergy/4160 Allergies/F00 Hospital 08311(SNOMED 1325704(RXNOR Repository CT) M) ENCOUNTERS ENCOUNTERS ADMIT/DISCHARGE ACCOUNT ADMITTING ENCOUNTER LOCATION SOURCE NUMBER CLASS 07/31/2018 [id number] Ambulatory Jayjay [facility] 5 [facility] ing:MTLAB Repository 07/29/2018 [id number] Ambulatory Fletcher Fletcher 9 [facility] ing:LABSPEC Repository 07/29/2018 [id number] Ambulatory Building:[facility] [place] Practices Repository 05/27/2018 [id number] Ambulatory Fletcher Jayjay 3 [facility] ing:LABSPEC Repository 05/26/2018 [id number] Ambulatory Fletcher Fletcher 9 [facility] ing:LAB.FUTUR Repository E 05/18/2018 [id number] Ambulatory Jayjay Fletcher 7 [facility] ing:LAB Repository 04/22/2018 [id number] Ambulatory Fletcher Jayjay 0 [facility] ing:LAB Repository 12/17/2017 [id number] Ambulatory Jayjay Fletcher 0 [facility] ing:LAB Repository PAYERS PAYERS ENCOUNTER GUARANTOR PAYER SUBSCRIBER SOURCE 07/31/2018 KRISHNA Saab Primary KAYLYN Ro [id number] Insurance:ANTHEMPolic STEINERDOB: [facility] PARKER y Number: [id number], [place] [id number] Repository [address]Pfs: (330) Date:7654-29-98[phone] (HP) [id number], [place] [address]LI: 07/31/2018 Secondary NOT GIVENUNK Fletcher Insurance:SELF PAY [place] Number: Effective Repository Date:2018-07-31 07/29/2018 KRISHNA Saab Primary KAYLYN Sheppard Jayjay [id number] Insurance:ANTHEMPolic STEINERDOB: [facility] Number: [id number], [place] [id number] Repository [address]Lgr: (330) Date:3220-12-20[phone] () [id number], [place] [address]XL: 07/29/2018 Secondary NOT GIVENUNK Jayjay Insurance:SELF PAY [place] Number: Effective Repository Date:2018-07-29 07/29/2018 Kaylyn Primary Kaylyn M OHIP Practices SteinerDOB: Insurance:[place] SteinerDOB: Repository [id number] /[facility] Number: [id number] [place] [id number] [address] [place], [place] Date:2036-22-08[place]arx[place]ak [place], [place] [address]Ync: (330) Name:[address] [address]Kiq: [id number] Hopper [phone] (HP) (AC)Tel: [phone]: ([phone]) [phone] 07/29/2018 Secondary Krishna OHIP Practices Insurance:Medical SteinerDOB: Repository [facility] [place] [id number] Number: [address] [id number] [place], [place] Date: - [address]Qnc: ([id number] [phone] () Name:[facility] Gurinder [address] [place] [address] [id number]: 05/27/2018 KRISHNA A Primary KAYLYN Ro [id number] Insurance:ANTHEMPolic STEINERDOB: Community PARKER y Number: [id number] [id number] Repository [address]Vwv: (330) Date:9296-37-63[phone] () [id number] [place] [address]WY: 05/27/2018 Secondary NOT GIVENUNK Jayjay Insurance:SELF PAY [place] Number: Effective Repository Date:2018-05-27 05/26/2018 KRISHNA A Primary KAYLYN Ro [id number] Insurance:ANTHEMPolic STEINERDOB: Community PARKER y Number: [id number] Falls Hospital [facility] [id number] Repository [address]Vhm: (330) Date:7481-65-55[phone] () [address] [place] [address]HH: 05/26/2018 Secondary NOT GIVENUNK Fletcher Insurance:SELF PAY [place] Number: Effective Repository Date:2018-05-26 05/18/2018 KRISHNA A Primary KAYLYN Ro [id number] Insurance:ANTHEMPolic STEINERDOB: Community [address]ARKER y Number: [id number], [place] [id number] Repository [address]Smy: (330) Date:0522-56-43[phone] () [id number] [place] [address]VW: 05/18/2018 Secondary NOT GIVENUNK Fletcher Insurance:SELF PAY [place] Number: Effective Repository Date:2018-05-18 04/22/2018 KRISHNA A Primary KAYLYN [id number] Insurance:ANTHEMPolic STEINERDOB: Community [address]ARKER y Number: [id number], [place] [id number] Repository [address]Oue: (330) Date:0979-57-82[phone] () [id number], [place] [address]YN: 04/22/2018 Secondary NOT GIVENUNK Jayjay Insurance:SELF PAY [place] Number: Effective Repository Date:2018-04-16 12/17/2017 KRISHNA Kaiser Primary KAYLYN Ro [id number] Insurance:ANTHEMPolic STEINERDOB: Community [address]ARKER y Number: [id number], [place] [id number] Repository [address]Czu: (330) Date:1549-81-63[phone] () [id number], [place] [address]UL: 12/17/2017 Secondary NOT GIVENUNK Jayjay Insurance:SELF PAY [place] Number: Effective Repository Date:2017-12-17
== END ==
PROVIDERS: Family Provider Internal Medicine; PCP Internal Medicine; Referring Provider Internal Medicine Gastroenterology; Visit Provider Internal Medicine Gastroenterology
DX: K51.90 Ulcerative colitis, unspecified, without complications (principal)
CPT/HCPCS: 36415

== ENCOUNTER → 2018-09-04 07:14 | Outpatient (CLI) | payer BC, SELFPAY ==
--- NOTE | 2018-09-04 07:17 | BI_ITS ---
MAMMOGRAPHY - BILATERAL SCREENING REASON FOR EXAM: Female, 48 years old. Routine annual screening examination. PERTINENT HISTORY: Non-contributory. History of the dimpling of both nipples. TECHNIQUE: Digital bilateral breast yo (3D mammographic acquisition) in the CC and MLO projections. 2-D mediolateral oblique (MLO) and craniocaudad (CC) views of both breasts were obtained. CAD: Full Field Digital Mammography with Computer Added Detection was performed. COMPARISON: Comparison is made with prior study April 22, 2017 and May 23, 2016. FINDINGS: Breast Composition: The breasts are extremely dense, which lowers the sensitivity of mammography. There are no dominant masses or suspicious calcifications. No other significant abnormalities are identified. There has been no significant change since the prior study. BI/SCREENING MAMM (CAD), BILAT IMPRESSION: Stable bilateral screening mammogram. Yearly follow-up mammogram recommended. (A) ASSESSMENT CATEGORY: BIRADS Category 1: Negative. A letter regarding these results will be sent to the patient by the facility within 30 days. Approximately 10% of breast cancers are not detected by mammography. A normal mammogram should not delay biopsy of a clinically suspicious abnormality. [id number] Electronically Signed: Oliver Shine MD at 8:44 EST , Service support ,
== END ==
PROVIDERS: Family Provider Internal Medicine; PCP Internal Medicine; Referring Provider Obstetrics & Gynecology; Visit Provider Obstetrics & Gynecology
DX: Z12.31 Encounter for screening mammogram for malignant neoplasm of breast (principal)
CPT/HCPCS: 77063; 77067

== ENCOUNTER → 2019-02-10 09:45 | Outpatient (CLI) | payer BC, SELFPAY ==
[2019-02-10 12:29] LABS: Hematocrit 41.3 % (37-47); Hemoglobin 13.5 g/dL (12.0-15.0); Mean Corp Hgb Conc 32.7 g/dL (32-36); Mean Corpuscular Hgb 31.3 pg (27.0-32.0); Mean Corpuscular Volume 95.6 fL (81-99); Mean Platelet Vol. 11.7 fl (6.2-12.0); Platelet Count 288 K/mm3 (150-450); RBC Distribution Width CV 12.2 % (11.6-14.6); RBC Distribution Width SD 43.5 fl (35.1-43.9); Red Blood Count 4.32 M/mm3 (4.2-5.4); White Blood Count 6.2 K/mm3 (4.4-11.0)
[2019-02-10 12:44] LABS: Erythrocyte Sedimentation Rate 9 mm/hr (0-30)
[2019-02-10 12:46] LABS: Anion Gap 8 (5-15); BUN 19 mg/dL (7-18); BUN/Creat Ratio 21.7 RATIO (10-20); CRP 3.52 mg/L (0.0-3.0); Calcium,Total 9.1 mg/dL (8.5-10.1); Chloride 101 mmol/L (98-107); Creatinine, Serum 0.88 mg/dL (0.55-1.02); EST Glomerular Filtration Rate 73 mL/min (>60); Est Glom Filt Rate - Afr Amer 88 mL/min (>60); Glucose 94 mg/dL (74-106); Potassium 3.8 mmol/L (3.5-5.1); Sodium Level 139 mmol/L (136-145)
== END ==
PROVIDERS: Family Provider Internal Medicine; PCP Internal Medicine; Referring Provider Internal Medicine Gastroenterology; Visit Provider Internal Medicine Gastroenterology
DX: K51.90 Ulcerative colitis, unspecified, without complications (principal)
CPT/HCPCS: 36415; 80048; 85027; 85652; 86140

== ENCOUNTER → 2019-04-13 14:11 | Outpatient (CLI) | payer BC, SELFPAY ==
[2019-04-13 16:00] LABS: Hematocrit 36.3 % (37-47); Hemoglobin 11.3 g/dL (12.0-15.0); Mean Corp Hgb Conc 31.1 g/dL (32-36); Mean Corpuscular Hgb 30.5 pg (27.0-32.0); Mean Corpuscular Volume 97.8 fL (81-99); Platelet Count 283 K/mm3 (150-450); RBC Distribution Width CV 14.1 % (11.6-14.6); RBC Distribution Width SD 51.1 fl (35.1-43.9); Red Blood Count 3.71 M/mm3 (4.2-5.4)
[2019-04-13 16:14] LABS: Erythrocyte Sedimentation Rate 9 mm/hr (0-30)
[2019-04-13 16:30] LABS: CRP < 2.90 mg/L (0.0-3.0)
== END ==
PROVIDERS: Family Provider Internal Medicine; PCP Internal Medicine; Referring Provider Internal Medicine Gastroenterology; Visit Provider Internal Medicine Gastroenterology
DX: K51.90 Ulcerative colitis, unspecified, without complications (principal)
CPT/HCPCS: 36415; 85027; 85652; 86140

== ENCOUNTER → 2019-04-15 07:07 | Outpatient (CLI) | payer BC, SELFPAY | PROVIDERS: Family Provider Internal Medicine; PCP Internal Medicine; Referring Provider Internal Medicine Gastroenterology; Visit Provider Internal Medicine Gastroenterology | DX: R19.7 Diarrhea, unspecified (principal) | CPT/HCPCS: 87493 ==

== ENCOUNTER → 2019-05-06 08:52 | Outpatient (CLI) | payer BC, SELFPAY ==
--- NOTE | 2019-05-06 08:55 | US_ITS ---
PROCEDURES: ULTRASOUND AORTA REASON FOR EXAM: Female, 48 years old. Abdominal mass. Evaluate for abdominal aortic aneurysm. TECHNIQUE: Ultrasound evaluation of the aorta was performed with real-time and static robles-scale imaging. COMPARISON: None. FINDINGS: There is atherosclerotic plaque formation of the abdominal aorta. Aorta measures: Proximal 2.2 cm. Middle 1.6 cm. Distal 1.6 cm. Aorta measure transversely: Proximal 1.7 cm. Middle 1.6 cm. Distal 1.7 cm. The peak systolic velocities of the proximal aorta is 81.9 cm/s, mid aorta 66.0 cm/s and distal aorta 101.0 cm/s. Right iliac artery measures: 0.8 cm. Right iliac artery measure transversely: 1.2 cm. Peak systolic velocity is 118 cm/s. Left iliac artery measures: 0.8 cm. Left iliac artery measure transversely: 1.2 cm. Peak systolic velocity is 118 cm/s. There is no demonstrated aneurysm.. US/Aorta IMPRESSION: Atherosclerotic disease with no evidence of aneurysmal dilatation of the aorta noted. Electronically Signed: Nevin Gomez MD at 5:02 EDT , Service support ,
--- NOTE | 2019-05-06 16:27 | US_ITS ---
STUDY: ULTRASOUND OF THE FEMALE PELVIS - COMPLETE REASON FOR EXAM: Female, 48 years old. Bloating. LMP: 08/13/2018 TECHNIQUE: Transabdominal and Transvaginal TECHNICAL QUALITY: Adequate. COMPARISON: None. FINDINGS: The uterus is anteverted and is in a midline position. The uterus measures 7.4 x 3.4 x 2.8 cm. The uterus is diffusely heterogeneous which can be seen with diffuse leiomyomatous change. At least 2 poorly marginated fibroids are seen, measuring approximately 2.7 and 2.9 cm and with calcifications. Endometrial echoes are 4.5 mm thick and hyperechoic. Normal uterine cervix. The ovaries are not visualized. There is no fluid in the cul-de-sac. The pre void volume of the bladder was 202 ml. US/Pelvic (Non ) IMPRESSION: Although the uterus is small, it is heterogeneous and may have diffuse leiomyomatous change, along with at least 2 more focal fibroids. Electronically Signed: Gordo Argueta MD at 23:45 EDT , Service support ,
--- NOTE | 2019-05-06 18:07 | US_ITS ---
STUDY: ULTRASOUND OF THE FEMALE PELVIS - COMPLETE REASON FOR EXAM: Female, 48 years old. Bloating. LMP: 08/13/2018 TECHNIQUE: Transabdominal and Transvaginal TECHNICAL QUALITY: Adequate. COMPARISON: None. FINDINGS: The uterus is anteverted and is in a midline position. The uterus measures 7.4 x 3.4 x 2.8 cm. The uterus is diffusely heterogeneous which can be seen with diffuse leiomyomatous change. At least 2 poorly marginated fibroids are seen, measuring approximately 2.7 and 2.9 cm and with calcifications. Endometrial echoes are 4.5 mm thick and hyperechoic. Normal uterine cervix. The ovaries are not visualized. There is no fluid in the cul-de-sac. The pre void volume of the bladder was 202 ml. US/Transvaginal Non- IMPRESSION: Although the uterus is small, it is heterogeneous and may have diffuse leiomyomatous change, along with at least 2 more focal fibroids. Electronically Signed: Gordo Argueta MD at 23:45 EDT , Service support ,
== END ==
PROVIDERS: Family Provider Internal Medicine; PCP Internal Medicine; Referring Provider Internal Medicine; Visit Provider Internal Medicine
DX: R19.00 Intra-abdominal and pelvic swelling, mass and lump, unspecified site (principal); R14.0 Abdominal distension (gaseous)
CPT/HCPCS: 76775; 76830; 76856

== ENCOUNTER → 2019-05-29 11:26 | Outpatient (CLI) | payer BC, SELFPAY ==
[2019-05-29 12:39] LABS: AST(SGOT) 20 U/L (15-37); Alanine Aminotransfer ALT/SGPT 25 U/L (13-56); Albumin, Serum 3.8 g/dL (3.2-5.0); Alkaline Phosphatase 57 U/L (45-117); Bilirubin, Direct 0.14 mg/dL (0.00-0.30); Globulin 3.7 g/dL (2.2-4.2); Protein, Total 7.5 g/dL (6.4-8.2)
[2019-05-29 12:41] LABS: Absolute Lymphocyte Count 2.16 X10^3/uL (0.83-4.51); Absolute Neutrophil Count 2.3 X10^3/uL (2.0-7.7); Basophil# 0.05 X10^3/uL; Eosinophil# 0.15 X10^3/uL; Hematocrit 40.2 % (37-47); Hemoglobin 12.5 g/dL (12.0-15.0); Lymphocyte # 2.16 X10^3/ul (4.0); Lymphocyte % 42.9 % (19-41); Mean Corp Hgb Conc 31.1 g/dL (32-36); Mean Corpuscular Hgb 31.6 pg (27.0-32.0); Mean Corpuscular Volume 101.5 fL (81-99); Mean Platelet Vol. 10.6 fl (6.2-12.0); Monocyte# 0.38 X10^3/uL; Monocyte% 7.6 % (0-10); NRBC Flagged by Analyzer 0 % (0-5); Neutrophil # 2.28 X10^3/uL (2.7-7.7); Neutrophil % 45.3 % (47-70); Platelet Count 308 K/mm3 (150-450); RBC Distribution Width CV 13.4 % (11.6-14.6); RBC Distribution Width SD 50.6 fl (35.1-43.9); Red Blood Count 3.96 M/mm3 (4.2-5.4)
== END ==
PROVIDERS: Family Provider Internal Medicine; PCP Internal Medicine; Referring Provider Internal Medicine Gastroenterology; Visit Provider Internal Medicine Gastroenterology
DX: K51.90 Ulcerative colitis, unspecified, without complications (principal); Z79.899 Other long term (current) drug therapy
CPT/HCPCS: 36415; 80076; 85025

== ENCOUNTER → 2019-06-28 07:05 | Outpatient (CLI) | payer BC, SELFPAY ==
[2019-06-28 10:12] LABS: Absolute Lymphocyte Count 2.28 X10^3/uL (0.83-4.51); Absolute Neutrophil Count 2.9 X10^3/uL (2.0-7.7); Basophil# 0.04 X10^3/uL; Basophil% 0.7 % (0-1); Eosinophil# 0.17 X10^3/uL; Eosinophils% 2.9 % (0-5); Hematocrit 37.6 % (37-47); Hemoglobin 11.9 g/dL (12.0-15.0); Lymphocyte # 2.28 X10^3/ul (4.0); Lymphocyte % 39.3 % (19-41); Mean Corp Hgb Conc 31.6 g/dL (32-36); Mean Corpuscular Hgb 32.3 pg (27.0-32.0); Mean Corpuscular Volume 102.2 fL (81-99); Mean Platelet Vol. 10.4 fl (6.2-12.0); Monocyte% 6.9 % (0-10); NRBC Flagged by Analyzer 0 % (0-5); Neutrophil # 2.89 X10^3/uL (2.7-7.7); Neutrophil % 49.9 % (47-70); Platelet Count 334 K/mm3 (150-450); RBC Distribution Width CV 14.1 % (11.6-14.6); Red Blood Count 3.68 M/mm3 (4.2-5.4); White Blood Count 5.8 K/mm3 (4.4-11.0)
[2019-06-28 10:25] LABS: AST(SGOT) 17 U/L (15-37); Alanine Aminotransfer ALT/SGPT 25 U/L (13-56); Albumin, Serum 3.9 g/dL (3.2-5.0); Alkaline Phosphatase 52 U/L (45-117); Bilirubin, Direct 0.05 mg/dL (0.00-0.30); Globulin 3.2 g/dL (2.2-4.2); Protein, Total 7.1 g/dL (6.4-8.2)
== END ==
PROVIDERS: Family Provider Internal Medicine; PCP Internal Medicine; Referring Provider Internal Medicine Gastroenterology; Visit Provider Internal Medicine Gastroenterology
DX: K51.90 Ulcerative colitis, unspecified, without complications (principal); Z79.899 Other long term (current) drug therapy
CPT/HCPCS: 36415; 80076; 85025

== ENCOUNTER → 2019-06-30 10:06 | Outpatient (CLI) | payer BC, SELFPAY | PROVIDERS: Family Provider Internal Medicine; PCP Internal Medicine; Referring Provider Internal Medicine Gastroenterology; Visit Provider Internal Medicine Gastroenterology | DX: K51.90 Ulcerative colitis, unspecified, without complications (principal); Z79.899 Other long term (current) drug therapy | CPT/HCPCS: 36415 ==

== ENCOUNTER → 2019-11-25 16:46 | Outpatient (CLI) | payer OTHER, SELFPAY ==
[2019-11-25 18:12] LABS: Absolute Lymphocyte Count 2.04 X10^3/uL (0.83-4.51); Absolute Neutrophil Count 2.9 X10^3/uL (2.0-7.7); Basophil# 0.05 X10^3/uL; Basophil% 0.9 % (0-1); Eosinophil# 0.34 X10^3/uL; Eosinophils% 5.9 % (0-5); Hematocrit 37.7 % (37-47); Hemoglobin 12.2 g/dL (12.0-15.0); Lymphocyte # 2.04 X10^3/ul (4.0); Lymphocyte % 35.5 % (19-41); Mean Corp Hgb Conc 32.4 g/dL (32-36); Mean Corpuscular Hgb 32.9 pg (27.0-32.0); Mean Corpuscular Volume 101.6 fL (81-99); Mean Platelet Vol. 10.4 fl (6.2-12.0); Monocyte# 0.44 X10^3/uL; Monocyte% 7.7 % (0-10); NRBC Flagged by Analyzer 0 % (0-5); Neutrophil # 2.87 X10^3/uL (2.7-7.7); Neutrophil % 49.8 % (47-70); Platelet Count 274 K/mm3 (150-450); RBC Distribution Width CV 13.5 % (11.6-14.6); RBC Distribution Width SD 50.2 fl (35.1-43.9); Red Blood Count 3.71 M/mm3 (4.2-5.4); White Blood Count 5.8 K/mm3 (4.4-11.0)
[2019-11-25 18:27] LABS: AST(SGOT) 18 U/L (15-37); Alanine Aminotransfer ALT/SGPT 23 U/L (13-56); Albumin, Serum 4.2 g/dL (3.2-5.0); Alkaline Phosphatase 48 U/L (45-117); Bilirubin, Direct 0.13 mg/dL (0.00-0.30); Globulin 3.4 g/dL (2.2-4.2); Protein, Total 7.6 g/dL (6.4-8.2)
== END ==
PROVIDERS: PCP Internal Medicine; Referring Provider Internal Medicine Gastroenterology; Visit Provider Internal Medicine Gastroenterology
DX: K51.90 Ulcerative colitis, unspecified, without complications (principal); Z79.899 Other long term (current) drug therapy
CPT/HCPCS: 36415; 80076; 85025

== ENCOUNTER → 2020-01-10 07:09 | Outpatient (CLI) | payer OTHER, SELFPAY | PROVIDERS: PCP Internal Medicine; Referring Provider Internal Medicine Gastroenterology; Visit Provider Internal Medicine Gastroenterology | DX: K51.90 Ulcerative colitis, unspecified, without complications (principal) | CPT/HCPCS: 36415 ==

== ENCOUNTER → 2020-04-01 09:13 | Outpatient (CLI) | payer OTHER, SELFPAY ==
[2020-04-01 10:01] LABS: Absolute Lymphocyte Count 1.43 X10^3/uL (0.83-4.51); Absolute Neutrophil Count 3.3 X10^3/uL (2.0-7.7); Basophil# 0.04 X10^3/uL; Basophil% 0.7 % (0-1); Eosinophil# 0.44 X10^3/uL; Eosinophils% 7.5 % (0-5); Hematocrit 36.5 % (37-47); Hemoglobin 11.7 g/dL (12.0-15.0); Lymphocyte # 1.43 X10^3/ul (4.0); Lymphocyte % 24.5 % (19-41); Mean Corp Hgb Conc 32.1 g/dL (32-36); Mean Corpuscular Volume 106.1 fL (81-99); Mean Platelet Vol. 9.6 fl (6.2-12.0); Monocyte# 0.58 X10^3/uL; Monocyte% 9.9 % (0-10); NRBC Flagged by Analyzer 0 % (0-5); Neutrophil # 3.33 X10^3/uL (2.7-7.7); Neutrophil % 57.1 % (47-70); Platelet Count 312 K/mm3 (150-450); RBC Distribution Width CV 14.3 % (11.6-14.6); RBC Distribution Width SD 55.8 fl (35.1-43.9); Red Blood Count 3.44 M/mm3 (4.2-5.4); White Blood Count 5.8 K/mm3 (4.4-11.0)
[2020-04-01 10:26] LABS: AST(SGOT) 17 U/L (15-37); Alanine Aminotransfer ALT/SGPT 22 U/L (13-56); Albumin, Serum 3.8 g/dL (3.2-5.0); Alkaline Phosphatase 59 U/L (45-117); Bilirubin, Direct 0.14 mg/dL (0.00-0.30); Globulin 3.7 g/dL (2.2-4.2); Protein, Total 7.5 g/dL (6.4-8.2)
== END ==
PROVIDERS: PCP Internal Medicine; Referring Provider Internal Medicine Gastroenterology; Visit Provider Internal Medicine Gastroenterology
DX: K51.90 Ulcerative colitis, unspecified, without complications (principal)
CPT/HCPCS: 36415; 80076; 85025

== ENCOUNTER → 2020-04-05 10:02 | Outpatient (CLI) | payer OTHER, SELFPAY | PROVIDERS: PCP Internal Medicine; Referring Provider Internal Medicine Gastroenterology; Visit Provider Internal Medicine Gastroenterology | DX: K51.90 Ulcerative colitis, unspecified, without complications (principal) | CPT/HCPCS: 36415 ==

== ENCOUNTER → 2020-04-19 07:18 | Outpatient (CLI) | payer OTHER, SELFPAY ==
[2020-04-22 03:06] LABS: QNTFERON TB Mitogen Value > 10.00 IU/mL (.); QNTFERON TB Nil Value 0.02 IU/mL (.); QNTFERON TB1+ Ag Value 0.03 IU/mL (.); QNTFERON TB2+ Ag Value 0.02 IU/mL (.)
[2020-04-22 14:13] LABS: QNTIFERON TB Positive Criteria Negative (Negative)
== END ==
PROVIDERS: PCP Internal Medicine; Referring Provider Internal Medicine Gastroenterology; Visit Provider Internal Medicine Gastroenterology
DX: K51.90 Ulcerative colitis, unspecified, without complications (principal)
CPT/HCPCS: 36415; 86480

== ENCOUNTER → 2020-05-25 07:02 | Outpatient (CLI) | payer OTHER, SELFPAY ==
--- NOTE | 2020-05-25 07:04 | BI_ITS ---
MAMMOGRAPHY - BILATERAL SCREENING REASON FOR EXAM: Female, 49 years old. Routine annual screening examination. PERTINENT HISTORY: Non-contributory. TECHNIQUE: Digital bilateral breast eugenio (3D mammographic acquisition) in the CC and MLO projections. 2-D mediolateral oblique (MLO) and craniocaudad (CC) views of both breasts were obtained. CAD: Full Field Digital Mammography with Computer Added Detection was performed. COMPARISON: Comparison is made with prior study dated 09/04/2018 and 04/22/2017. FINDINGS: Breast Composition: The breasts are extremely dense, which lowers the sensitivity of mammography. There are no dominant masses or suspicious calcifications. No other significant abnormalities are identified. There has been no significant change since the prior study. BI/SCREEN MAMM (CAD) W/EUGENIO BILAT IMPRESSION: Stable bilateral screening mammogram. Yearly follow-up mammogram recommended. (A) ASSESSMENT CATEGORY: BIRADS Category 1: Negative. A letter regarding these results will be sent to the patient by the facility within 30 days. Approximately 10% of breast cancers are not detected by mammography. A normal mammogram should not delay biopsy of a clinically suspicious abnormality. [id number] Electronically Signed: Oliver Shine, at 8:18 EST , Service support ,
== END ==
PROVIDERS: PCP Internal Medicine; Referring Provider Student in an Organized Health Care Education/Training Program; Visit Provider Student in an Organized Health Care Education/Training Program
DX: Z12.31 Encounter for screening mammogram for malignant neoplasm of breast (principal)
CPT/HCPCS: 77063; 77067

== ENCOUNTER → 2020-10-04 16:24 | Outpatient (CLI) | payer OTHER, SELFPAY ==
[2020-10-04 18:12] LABS: Absolute Lymphocyte Count 1.28 X10^3/uL (0.83-4.51); Absolute Neutrophil Count 2.4 X10^3/uL (2.0-7.7); Basophil# 0.03 X10^3/uL; Basophil% 0.7 % (0-1); Eosinophil# 0.12 X10^3/uL; Eosinophils% 2.8 % (0-5); Hematocrit 39.1 % (37-47); Hemoglobin 12.6 g/dL (12.0-15.0); Lymphocyte # 1.28 X10^3/ul (4.0); Lymphocyte % 29.9 % (19-41); Mean Corp Hgb Conc 32.2 g/dL (32-36); Mean Corpuscular Hgb 33.7 pg (27.0-32.0); Mean Corpuscular Volume 104.5 fL (81-99); Mean Platelet Vol. 9.8 fl (6.2-12.0); Monocyte# 0.47 X10^3/uL; NRBC Flagged by Analyzer 0 % (0-5); Neutrophil # 2.37 X10^3/uL (2.7-7.7); Neutrophil % 55.4 % (47-70); Platelet Count 313 K/mm3 (150-450); RBC Distribution Width CV 13.9 % (11.6-14.6); RBC Distribution Width SD 53.3 fl (35.1-43.9); Red Blood Count 3.74 M/mm3 (4.2-5.4); White Blood Count 4.3 K/mm3 (4.4-11.0)
== END ==
PROVIDERS: PCP Internal Medicine; Referring Provider Internal Medicine Gastroenterology; Visit Provider Internal Medicine Gastroenterology
DX: K51.90 Ulcerative colitis, unspecified, without complications (principal)
CPT/HCPCS: 36415; 85025

== ENCOUNTER → 2020-12-06 07:20 | Outpatient (CLI) | payer OTHER, SELFPAY ==
[2020-12-06 09:53] LABS: Absolute Lymphocyte Count 1.79 X10^3/uL (0.83-4.51); Absolute Neutrophil Count 2.7 X10^3/uL (2.0-7.7); Basophil# 0.03 X10^3/uL; Basophil% 0.6 % (0-1); Eosinophil# 0.14 X10^3/uL; Eosinophils% 2.7 % (0-5); Hematocrit 39.5 % (37-47); Hemoglobin 12.6 g/dL (12.0-15.0); Lymphocyte # 1.79 X10^3/ul (0.83-4.51); Lymphocyte % 34.8 % (19-41); Mean Corp Hgb Conc 31.9 g/dL (32-36); Mean Corpuscular Hgb 32.7 pg (27.0-32.0); Mean Corpuscular Volume 102.6 fL (81-99); Mean Platelet Vol. 10.6 fl (6.2-12.0); Monocyte# 0.49 X10^3/uL; Monocyte% 9.5 % (0-10); NRBC Flagged by Analyzer 0 % (0-5); Neutrophil # 2.67 X10^3/uL (2.7-7.7); Platelet Count 279 K/mm3 (150-450); RBC Distribution Width CV 12.7 % (11.6-14.6); RBC Distribution Width SD 47.7 fl (35.1-43.9); Red Blood Count 3.85 M/mm3 (4.2-5.4); White Blood Count 5.1 K/mm3 (4.4-11.0)
== END ==
PROVIDERS: PCP Internal Medicine; Referring Provider Internal Medicine Gastroenterology; Visit Provider Internal Medicine Gastroenterology
DX: K51.90 Ulcerative colitis, unspecified, without complications (principal)
CPT/HCPCS: 36415; 85025

== ENCOUNTER → 2021-01-23 08:51 | Outpatient (CLI) | payer OTHER, SELFPAY ==
--- NOTE | 2021-01-23 08:55 | BI_ITS ---
MAMMOGRAPHY - UNILATERAL DIAGNOSTIC: LEFT BREAST REASON FOR EXAM: Female, 50 years old. One-month history of left breast lump. PERTINENT HISTORY: Non-contributory. TECHNIQUE: Digital unilateral breast yo (3D mammographic acquisition) in the CC and MLO projections. 2-D mediolateral oblique (MLO) and craniocaudad (CC) views of both breasts were obtained. CAD: Full Field Digital Mammography with Computer Added Detection was performed. COMPARISON: Comparison is made with prior study dated 05/25/2020 and 09/04/2018. FINDINGS: Breast Composition: The breasts are heterogeneously dense, which may obscure small masses. There are no dominant masses or suspicious calcifications. No other significant abnormalities are identified. There has been no significant change since the prior study. BI/DIAG MAMM W/CAD, UNILAT IMPRESSION: Stable unilateral diagnostic mammogram. With the patient''s history of a palpable lump in the left breast, correlation with ultrasound is recommended. ASSESSMENT CATEGORY: BIRADS Category 0: Incomplete. Need additional imaging evaluation. A letter regarding these results will be sent to the patient by the facility within 30 days. Approximately 10% of breast cancers are not detected by mammography. A normal mammogram should not delay biopsy of a clinically suspicious abnormality. Electronically Signed: Oliver Shine MD at 9:58 EDT , Service support ,
--- NOTE | 2021-01-23 08:55 | US_ITS ---
STUDY: ULTRASOUND BREAST - LEFT REASON FOR EXAM: Female, 50 years old. Palpable lump left breast. TECHNIQUE: Axial and longitudinal images of the LEFT breast were performed with a high resolution ultrasound transducer. # OF IMAGES: 14 COMPARISON: Comparison is made with prior mammogram done earlier in the day. FINDINGS: LEFT Breast: The apical area was examined by ultrasound. No solid or cystic mass is seen. Mildly dilated retroareolar ducts. US/Breast Limited Unilateral IMPRESSION: Mildly dilated retroareolar ducts. No sonographic mass is seen. ASSESSMENT CATEGORY: BIRADS Category 2: Benign. A letter regarding these results will be sent to the patient by the facility within 30 days. Electronically Signed: Oliver Shine MD at 15:41 EDT , Service support ,
== END ==
PROVIDERS: PCP Internal Medicine; Referring Provider Internal Medicine; Visit Provider Internal Medicine
DX: N63.20 Unspecified lump in the left breast, unspecified quadrant (principal)
CPT/HCPCS: 76642; 77061; 77065; G0279

== ENCOUNTER 2021-04-29 13:50 | Emergency (ER) | payer OTHER, SELFPAY ==
[2021-04-29 13:51] VITALS: BP 139/77; PULSE 88; RESP 18; TEMP 36.7; O2SAT 97; BMI 25.8
--- NOTE | 2021-04-29 13:59 | RAD_ITS ---
STUDY: X-RAY - LEFT ANKLE REASON FOR EXAM: Female, 50 years old. Injury TECHNIQUE: 3 view(s) of the ankle. COMPARISON: None. FINDINGS: Normal visualized distal tibia and fibula. Normal medial malleolus. Fracture of the lateral malleolus. Normal tibiotalar articulation and ankle mortise. Normal visualized talus and calcaneus. The visualized subtalar, talonavicular, calcaneocuboid and tarsal articulations are normal. Lateral soft tissue edema. RAD/Ankle min 3 Views IMPRESSION: Lateral malleolus fracture. Electronically Signed: Keith Nguyen DO at 16:29 EDT Tel [phone], Service support ,
--- NOTE | 2021-04-29 14:00 | ED.VIS.LOWEX ---
HPI History of Present Illness Chief Complaint: Lower Extremity Injury Detail of Chief Complaint: Injury to left ankle that occurred last evening Informant: patient Narrative Narrative: Patient states that she injured her ankle last evening. Patient states that she unknowingly was standing on her dog's leash and threw the ball. The dog took off after the ball and patient fell and twisted her ankle. Patient is able to bear some weight but quite painful. She denies any other injuries. [facility] Medical History (Updated 04/29/21 @ 14:[address] Shiva Greir, ) High cholesterol Home Medications atorvastatin 20 mg PO QHS 02/21/15 [History Last Taken Unknown] balsalazide 6.75 g PO BID 02/21/15 [History Last Taken Unknown] calcium citrate-vitamin D3 1 ea PO DAILY 02/21/15 [History Last Taken Unknown] cholecalciferol (vitamin D3) 0 unit PO DAILY 02/21/15 [History Last Taken Unknown] multivitamin with folic acid [Thera] 1 tab PO DAILY 02/21/15 [History Last Taken Unknown] omega-3 fatty acids [Fish Oil] 300 mg PO DAILY 02/21/15 [History Last Taken Unknown] valsartan-hydrochlorothiazide [Diovan Hct 160-25 MG Tablet] 1 tab PO DAILY 02/21/15 [History Last Taken Unknown] Ibuprofen [Motrin] 800 mg PO TID PRN PRN #30 tab 02/28/15 [Rx Last Taken Unknown] oxycodone-acetaminophen 1 - 2 tab PO Q4H PRN PRN #20 tab 02/28/15 [Rx Last Taken Unknown] hydrocodone-acetaminophen 1 tab PO Q4H PRN PRN 2 Days #10 tablet 04/29/21 [Rx Last Taken Unknown] Allergy/AdvReac Type Severity Reaction Status Date / Time No Known Allergies Allergy Verified 04/29/21 13:53 Social History Smoking Status: Never smoker ROS [facility] ED Constitutional Constitutional ED: Reports systems reviewed and no addt'l complaints, except as documented; Denies body ache(s), change in weight or chills Eyes Eyes: Denies acute decrease in peripheral vision, change in vision, double vision or loss of vision ENT ENT ED: Reports none; Denies ear pain, lip swelling, loss taste/smell, neck pain, otalgia or sore throat Cardiovascular Cardiovascular: Reports none; Denies abdominal pain, chest pain with activity, leg edema, lightheadedness, palpitations, rapid heart rate or syncope Respiratory/Chest Respiratory/Chest: Reports none; Denies change in mental status, dry cough, dyspnea, hemoptysis, shortness of breath at rest or shortness of breath with exertion Gastrointestinal Gastrointestinal: Reports none; Denies abdominal pain, change in stool character, diarrhea, hematemesis, hematochezia, melena, rectal bleeding or vomiting Genitourinary Genitourinary ED: Reports none; Denies abdominal discomfort, anuria, dysuria, genital pain or polyuria Musculoskeletal Musculoskeletal: Reports none and other Details: Right ankle injury ; Denies arthralgias, back pain, difficulty walking, extremity pain, muscle weakness or myalgias Integumentary Reports none; Denies abscess or rash Neurologic Neurologic: Reports none; Denies abnormal gait, confusion, focal weakness, frequent falls, headache(s), loss of vision, numbness, paresthesias, radicular pain, vertigo or weakness Psychiatric Psychiatric: Reports systems reviewed and no addt'l complaints, except as documented and none; Denies behavioral changes, confusion, difficulty concentrating, hallucinations, suicidal ideation, tactile hallucinations or visual hallucinations Endocrine Endocrinology: Denies none, cold intolerance, excessive sweating, fatigue or heat intolerance Hematologic/Lymphatic Hematologic/Lymphatic: Reports none; Denies anemia, easy bleeding or easy bruising Allergic/Immunologic Allergic/Immunologic ED: Denies as per HPI, none, lip swelling, mouth swelling, throat swelling, tongue swelling or hives EXAM Physical Exam Const Vital Signs: 04/29/21 13:51 Temperature 98.0 F Temperature Source Temporal Pulse Rate 88 Respiratory Rate 18 Blood Pressure 139/77 H Blood Pressure Mean 97 Pulse Ox 97 Oxygen Delivery Method Room Air Positive well nourished and well developed General Appearance ED: well developed and NAD HEENT Reports TM's clear and moist mucous membranes normocephalic and atraumatic; Negative for trauma or tenderness Tympanic Membrane ED: Yes TM's clear Eyes PERRL and EOMs intact bilaterally General Eye ED: Negative for pale conjunctiva or scleral icterus Neck no lymphadenopathy, supple and no JVD General: Negative for tenderness Chest Wall inspection of chest normal and palpation of chest normal Chest: Negative for tenderness Resp normal respiratory effort and clear to auscultation bilaterally Effort and Inspection: Negative for respiratory distress or pain with movement Auscultation: Negative for rhonchi, wheezes or diminished lung sounds Cardio regular rate, regular rhythm, S1 normal heart sound, S2 normal heart sound and no murmurs Peripheral Pulses: pulses 2+ throughout GI normal to inspection, nondistended, normoactive bowel sounds, soft to palpation, non-tender, non-distended and no masses Back/Spine no CVA tenderness and no thoracic nor lumbar tenderness Extremity Extremity Narrative: Patient has soft tissue swelling over the lateral malleolus with tenderness palpation over the lateral malleolus. She has ecchymosis and bruising noted. No pain at the proximal fibular head. And no pain at the base of the fifth meta tarsal. Patient neurovascularly intact. General Extremety ED: Negative for edema General Extremity: Negative for edema Neuro oriented x3, CN's II-XII intact bilaterally, no sensory deficits noted and gait normal Sensorium / Orientation: awake, alert, oriented to person, oriented to place and oriented to time Motor Exam: strength 5/5 throughout and strength abnormal Psych mental status grossly normal Skin no rashes or lesions noted and no wounds MDM MDM MDM Narrative Medical decision making narrative: Patient was placed in a posterior splint. She will be given referral to orthopedics for follow-up. Patient advised to ice and elevate the extremity. Patient given a prescription for Cylinder for pain. Radiography Diagnostic Testing: Three-view x-rays of the left ankle obtained show a fracture of the distal fibula of the [place] B type. Official radiology report pending. Discharge Plan Triage Chief Complaint: Lower Extremity Injury ED Provider: Shiva Grier Dx/Rx/DC Orders Clinical Impression: Closed fracture of distal end of left fibula Instructions: ED Ankle Fracture, Distal Fibula Prescriptions: New hydrocodone-acetaminophen [hydrocodone-acetaminophen] 1 TABLET tablet 1 tab PO Q4H PRN PRN (Reason: Pain) 2 Days Qty: 10 RF: 0 No Action atorvastatin 20 MG tablet 20 mg PO QHS RF: 0 balsalazide 750 MG capsule 6.75 g PO BID RF: 0 cholecalciferol (vitamin D3) 5,000 UNIT capsule 0 unit PO DAILY RF: 0 valsartan-hydrochlorothiazide [Diovan HCT] 1 TABLET tablet 1 tab PO DAILY RF: 0 calcium citrate-vitamin D3 1 EACH tablet 1 ea PO DAILY RF: 0 omega-3 fatty acids [Fish Oil] 300 MG capsule 300 mg PO DAILY RF: 0 multivitamin with folic acid [Thera] 1 TABLET tablet 1 tab PO DAILY RF: 0 oxycodone-acetaminophen 1 TABLET tablet 1 - 2 tab PO Q4H PRN PRN (Reason: Abdominal Pain) Qty: 20 RF: 0 Ibuprofen [Motrin] 800 MG tablet 800 mg PO TID PRN PRN (Reason: Abdominal Pain) Qty: 30 RF: 1 Primary Care Provider: Gloria Bills Referrals: Gloria Bills DO [Primary Care Provider] - Ivan Dasilva MD [STAFF PHYSICIAN] - 3-5 Days Disposition Disposition: Home, Self Care
== END 2021-04-29 15:08 | disposition home or self-care (01) ==
LOC: ED 14:42
PROVIDERS: Emergency Provider Emergency Medicine; PCP Internal Medicine
DX: S82.832A Other fracture of upper and lower end of left fibula, initial encounter for closed fracture (principal); W19.XXXA Unspecified fall, initial encounter; Y93.9 Activity, unspecified; Y92.9 Unspecified place or not applicable; E78.00 Pure hypercholesterolemia, unspecified; Z79.899 Other long term (current) drug therapy
CPT/HCPCS: 29515; 73610; 99283

== ENCOUNTER → 2021-07-12 | Outpatient (CLI) | payer OTHER, SELFPAY | END | disposition home or self-care (01) | LOC: LABSPEC 10:48 | PROVIDERS: PCP Internal Medicine; Referring Provider Physician Assistant; Visit Provider Physician Assistant | DX: Z11.52 Encounter for screening for COVID-19 (principal) | CPT/HCPCS: 87635; U0003; U0005 ==

== ENCOUNTER 2021-07-16 11:49 | Outpatient (CLI) | payer OTHER, SELFPAY | END 2021-07-16 23:59 | disposition short-term general hospital (02) | LOC: LABSPEC 11:50 | PROVIDERS: PCP Internal Medicine; Referring Provider Physician Assistant Surgical; Visit Provider Physician Assistant Surgical | DX: U07.1 COVID-19 (principal) | CPT/HCPCS: 87635; U0003; U0005 ==

== ENCOUNTER 2022-04-22 09:57 | Outpatient (CLI) | payer OTHER, SELFPAY ==
[2022-04-30 16:13] LABS: HPV APTIMA, High Risk Negative (Negative)
== END 2022-04-22 23:59 | disposition home or self-care (01) ==
LOC: LABSPEC 09:57
PROVIDERS: PCP Internal Medicine; Visit Provider Student in an Organized Health Care Education/Training Program
DX: Z12.4 Encounter for screening for malignant neoplasm of cervix (principal)
CPT/HCPCS: 87624; 88175; G0145

== ENCOUNTER → 2022-05-17 | Outpatient (CLI) | payer OTHER, SELFPAY ==
--- NOTE | 2022-05-17 07:16 | BI_ITS ---
MAMMOGRAPHY - BILATERAL SCREENING REASON FOR EXAM: Female, 51 years old. Routine annual screening examination. PERTINENT HISTORY: Non-contributory. History of prior dilated ducts. TECHNIQUE: Digital bilateral breast eugenio (3D mammographic acquisition) in the CC and MLO projections. 2-D mediolateral oblique (MLO) and craniocaudad (CC) views of both breasts were obtained. CAD: Full Field Digital Mammography with Computer Added Detection was performed. COMPARISON: Comparison is made with prior study dated 05/25/2020 and 01/23/2021. FINDINGS: Breast Composition: The breasts are extremely dense, which lowers the sensitivity of mammography. There are no dominant masses or suspicious calcifications. Stable small benign-appearing bilateral axillary lymph nodes. No other significant abnormalities are identified. There has been no significant change since the prior study. BI/SCRN MAMM (CAD)W/EUGENIO BILAT IMPRESSION: Stable bilateral screening mammogram. Yearly follow-up mammogram recommended. (A) ASSESSMENT CATEGORY: BIRADS Category 2: Benign. A letter regarding these results will be sent to the patient by the facility within 30 days. Approximately 10% of breast cancers are not detected by mammography. A normal mammogram should not delay biopsy of a clinically suspicious abnormality. [id number] Electronically Signed: Oliver Shine MD at 8:58 EDT ,
== END | disposition home or self-care (01) ==
LOC: OPBI 07:14
PROVIDERS: PCP Internal Medicine; Referring Provider Student in an Organized Health Care Education/Training Program; Visit Provider Student in an Organized Health Care Education/Training Program
DX: Z12.31 Encounter for screening mammogram for malignant neoplasm of breast (principal)
CPT/HCPCS: 77063; 77067

== ENCOUNTER → 2022-07-01 | Outpatient (CLI) | payer OTHER, SELFPAY ==
[2022-07-10 11:58] LABS: HPV APTIMA, High Risk Negative (Negative)
== END | disposition home or self-care (01) ==
LOC: LABSPEC 09:28
PROVIDERS: PCP Internal Medicine; Visit Provider Student in an Organized Health Care Education/Training Program
DX: Z12.4 Encounter for screening for malignant neoplasm of cervix (principal)
CPT/HCPCS: 87624; 88175; G0145

== ENCOUNTER → 2022-11-26 | Outpatient (CLI) | payer OTHER, SELFPAY ==
--- NOTE | 2022-11-26 08:46 | VDLE_ITS ---
Reason For Study: Pain in right lower leg RIGHT LEFT GSV is normal. CFV is compressible, spontaneous, phasic, CFV is compressible, spontaneous, phasic, competent, and demonstrates normal competent and demonstrates normal augmentation. augmentation. FV is compressible, spontaneous, phasic, competent and demonstrates normal augmentation. POP V is compressible, spontaneous, phasic, competent and demonstrates normal augmentation. T/P Trunk is compressible. PTV is compressible. RT PerV is compressible. Procedure This is a venous duplex using B-mode, color flow and spectral Doppler. Exam performed in department. The exam was diagnostic. A preliminary report was called and/or faxed to Aidee Chappell NP. VL/Venous Duplex US, Unilateral Interpretation Summary Deep veins of the right lower extremity are patent and compressible segmentally . There is no evidence of right lower extremity deep vein thrombosis. Valvular competence lisbet ears intact within the proximal deep venous system on the right . The right great saphenous vein a ppears patent and compressible segmentally. The left common femoral vein is patent and compressib le . Ordering Physician: Aidee Chappell Referring Physician: Gloria Bills M.D. Performed By: Raúl Kessler RVT
== END | disposition home or self-care (01) ==
LOC: CVS 08:43
PROVIDERS: PCP Internal Medicine; Visit Provider Nurse Practitioner Family
DX: M79.661 Pain in right lower leg (principal)
CPT/HCPCS: 93971

== ENCOUNTER → 2022-12-25 | Outpatient (CLI) | payer OTHER, SELFPAY ==
--- NOTE | 2022-12-25 08:25 | BD_ITS ---
STUDY: DUAL ENERGY X-RAY ABSORPTIOMETRY / DXA REASON FOR EXAM: Female, 52 years old. [id number] TECHNIQUE: Bone Mineral Density (BMD) measurements of lumbar spine and bilateral hips were obtained. COMPARISON: None. FINDINGS: Lumbar Spine (L1-L4): g/cm2 (0.969) / T-score (-0.7) / Z-score (0.3) Findings are suggestive of normal bone density with a low fracture risk. Left Femur Total: g/cm2 (0.886) / T-score (-0.5) / Z-score (0.2) Left Femoral Neck: g/cm2 (0.801) / T-score (-0.4) / Z-score (0.6) Right Femur Total: g/cm2 (0.868) / T-score (-0.6) / Z-score (0.0) Right Femoral Neck: g/cm2 (0.786) / T-score (-0.6) / Z-score (0.0) BD/Dexa Bone Density Study IMPRESSION: The patient is considered normal as outlined below according to World Ricci Organization (WHO) criteria with a low fracture risk. Reference Information: The T-score is the number of standard deviations above or below the standard which is normal for young adults at their peak bone mineral density. The World Health Organization (WHO) interprets the T-scores as follows: Above -1 Normal bone density Between -1 and -2.5 Osteopenia Equal to / or below -2.5 Osteoporosis As a practical clinical guideline, osteopenia may be graded as follows: Mild -1 through -1.5 Moderate -1.6 through -2.0 Severe -2.1 through -2.4 The Z-score is the number of standard deviations above or below age-matched controls. A Z-score of less than -1.5 would be considered abnormal. References: 1. NIH Osteoporosis and Related Bone Diseases www osteo.org 2. International Society for Clinical Densitometry www iscd.org 3. National Osteoporosis Foundation www nof.org Electronically Signed: Oliver Shine MD at 9:45 EDT ,
== END | disposition home or self-care (01) ==
LOC: OPBD 08:16
PROVIDERS: PCP Internal Medicine; Referring Provider Internal Medicine; Visit Provider Internal Medicine
DX: Z78.0 Asymptomatic menopausal state (principal)
CPT/HCPCS: 77080

== ENCOUNTER → 2023-04-23 | Outpatient (CLI) | payer OTHER, SELFPAY ==
[2023-04-29 16:09] LABS: Calprotectin, Stool 256 ug/g (0-120)
== END | disposition home or self-care (01) ==
LOC: MTLAB 11:04 → LABSPEC 11:05
PROVIDERS: PCP Internal Medicine; Referring Provider Internal Medicine Gastroenterology; Visit Provider Internal Medicine Gastroenterology
DX: K51.90 Ulcerative colitis, unspecified, without complications (principal)
CPT/HCPCS: 83993

== ENCOUNTER → 2023-06-06 | Outpatient (CLI) | payer OTHER, SELFPAY | END | disposition home or self-care (01) | LOC: MTLAB 07:46 | PROVIDERS: PCP Internal Medicine; Referring Provider Internal Medicine Gastroenterology; Visit Provider Internal Medicine Gastroenterology | DX: K51.90 Ulcerative colitis, unspecified, without complications (principal) | CPT/HCPCS: 36415 ==

== ENCOUNTER → 2023-06-18 | Outpatient (CLI) | payer OTHER, SELFPAY ==
[2023-06-18 12:34] LABS: Erythrocyte Sedimentation Rate 15 mm/hr (0-30)
[2023-06-18 12:37] LABS: Hematocrit 41.8 % (37-47); Hemoglobin 13.3 g/dL (12.0-15.0); Mean Corp Hgb Conc 31.8 g/dL (32-36); Mean Corpuscular Hgb 31.4 pg (27.0-32.0); Mean Corpuscular Volume 98.6 fL (81-99); Mean Platelet Vol. 10.2 fl (6.2-12.0); Platelet Count 338 K/mm3 (150-450); RBC Distribution Width CV 13.4 % (11.6-14.6); RBC Distribution Width SD 49.6 fl (35.1-43.9); Red Blood Count 4.24 M/mm3 (4.2-5.4); White Blood Count 6.9 K/mm3 (4.4-11.0)
[2023-06-18 13:16] LABS: AST(SGOT) 23 U/L (15-37); Alanine Aminotransfer ALT/SGPT 42 U/L (13-56); Albumin, Serum 3.8 g/dL (3.2-5.0); Alkaline Phosphatase 114 U/L (45-117); Bilirubin, Direct 0.11 mg/dL (0.00-0.30); CRP < 2.90 mg/L (0.0-3.0); Globulin 4.4 g/dL (2.2-4.2); Protein, Total 8.2 g/dL (6.4-8.2)
== END | disposition home or self-care (01) ==
LOC: MTLAB 10:38
PROVIDERS: PCP Internal Medicine; Referring Provider Internal Medicine Gastroenterology; Visit Provider Internal Medicine Gastroenterology
DX: K51.90 Ulcerative colitis, unspecified, without complications (principal); R19.7 Diarrhea, unspecified
CPT/HCPCS: 36415; 80076; 85027; 85652; 86140

== ENCOUNTER → 2023-06-19 | Outpatient (CLI) | payer OTHER, SELFPAY | END | disposition home or self-care (01) | PROVIDERS: PCP Internal Medicine; Referring Provider Internal Medicine Gastroenterology; Visit Provider Internal Medicine Gastroenterology | DX: K51.90 Ulcerative colitis, unspecified, without complications (principal); R19.7 Diarrhea, unspecified | CPT/HCPCS: 87493 ==

== ENCOUNTER → 2023-08-15 | Outpatient (CLI) | payer OTHER, SELFPAY ==
[2023-08-15 10:14] LABS: Absolute Lymphocyte Count 1.76 X10^3/uL (0.83-4.51); Absolute Neutrophil Count 3.4 X10^3/uL (2.0-7.7); Basophil# 0.03 X10^3/uL; Basophil% 0.5 % (0-1); Eosinophil# 0.28 X10^3/uL; Eosinophils% 4.7 % (0-5); Hematocrit 36.7 % (37-47); Hemoglobin 11.6 g/dL (12.0-15.0); Lymphocyte # 1.76 X10^3/ul (0.83-4.51); Lymphocyte % 29.7 % (19-41); Mean Corp Hgb Conc 31.6 g/dL (32-36); Mean Corpuscular Hgb 30.9 pg (27.0-32.0); Mean Corpuscular Volume 97.6 fL (81-99); Mean Platelet Vol. 10.7 fl (6.2-12.0); Monocyte# 0.42 X10^3/uL; Monocyte% 7.1 % (0-10); NRBC Flagged by Analyzer 0 % (0-5); Neutrophil # 3.41 X10^3/uL (2.7-7.7); Neutrophil % 57.7 % (47-70); Platelet Count 311 K/mm3 (150-450); RBC Distribution Width CV 13.4 % (11.6-14.6); RBC Distribution Width SD 47.8 fl (35.1-43.9); Red Blood Count 3.76 M/mm3 (4.2-5.4); White Blood Count 5.9 K/mm3 (4.4-11.0)
[2023-08-15 10:47] LABS: Hepatitis B Surface Antigen Non-Reactive (Nonreactive)
[2023-08-19 21:07] LABS: QNTFERON TB Mitogen Value > 10.00 IU/mL (.); QNTFERON TB Nil Value 0 IU/mL (.); QNTFERON TB1+ Ag Value 0 IU/mL (.); QNTFERON TB2+ Ag Value 0 IU/mL (.); QNTIFERON TB Positive Criteria Negative (Negative)
== END | disposition home or self-care (01) ==
LOC: MTLAB 07:39
PROVIDERS: PCP Internal Medicine; Referring Provider Internal Medicine Gastroenterology; Visit Provider Internal Medicine Gastroenterology
DX: K51.90 Ulcerative colitis, unspecified, without complications (principal)
CPT/HCPCS: 36415; 85025; 86480; 87340

== ENCOUNTER → 2023-09-19 | Outpatient (CLI) | payer OTHER, SELFPAY ==
--- NOTE | 2023-09-19 07:15 | BI_ITS ---
MAMMOGRAPHY - BILATERAL SCREENING 3-D TOMOSYNTHESIS REASON FOR EXAM: Female, 53 years old. screen PERTINENT HISTORY: No significant family history. TECHNIQUE: 2-D mammograms and 3-D Tomosynthesis of the breast (s) were performed. CAD was performed. COMPARISON: 05/17/2022 FINDINGS: The breast composition is heterogeneously dense that can obscure small breast masses. Scattered benign calcifications are seen. No dense spiculated masses or suspicious microcalcifications are identified. No architectural distortion is identified. There is no skin thickening or retraction. There has been no significant change since the prior study. BI/SCRN MAMM (CAD)W/EUGENIO BILAT IMPRESSION: No mammographic signs of malignancy. Routine yearly mammograms recommended. ASSESSMENT CATEGORY: BIRADS Category 1: Negative. A letter regarding these results will be sent to the patient by the facility within 30 days. FOLLOW UP RECOMMENDATION: Yearly follow up mammogram recommended. (A) Approximately 10% of breast cancers are not detected by mammography. A normal mammogram should not delay biopsy of a clinically suspicious abnormality. Electronically Signed: Yuan Mosqueda MD at 13:29 EST ,
== END | disposition home or self-care (01) ==
LOC: OPBI 07:14
PROVIDERS: PCP Internal Medicine; Referring Provider Nurse Practitioner Women's Health; Visit Provider Nurse Practitioner Women's Health
DX: Z12.31 Encounter for screening mammogram for malignant neoplasm of breast (principal)
CPT/HCPCS: 77063; 77067

== ENCOUNTER 2023-11-13 07:26 | Outpatient (RCR) | payer OTHER, SELFPAY ==
[2023-11-13 10:45] LABS: Absolute Lymphocyte Count 1.89 X10^3/uL (0.83-4.51); Absolute Neutrophil Count 2.1 X10^3/uL (2.0-7.7); Basophil# 0.05 X10^3/uL; Eosinophil# 0.26 X10^3/uL; Eosinophils% 5.4 % (0-5); Hemoglobin 12.5 g/dL (12.0-15.0); Lymphocyte # 1.89 X10^3/ul (0.83-4.51); Lymphocyte % 39.4 % (19-41); Mean Corp Hgb Conc 31.3 g/dL (32-36); Mean Corpuscular Hgb 30.8 pg (27.0-32.0); Mean Corpuscular Volume 98.5 fL (81-99); Mean Platelet Vol. 11.2 fl (6.2-12.0); Monocyte# 0.49 X10^3/uL; Monocyte% 10.2 % (0-10); NRBC Flagged by Analyzer 0 % (0-5); Neutrophil % 43.8 % (47-70); Platelet Count 321 K/mm3 (150-450); RBC Distribution Width CV 12.5 % (11.6-14.6); RBC Distribution Width SD 45.6 fl (35.1-43.9); Red Blood Count 4.06 M/mm3 (4.2-5.4); White Blood Count 4.8 K/mm3 (4.4-11.0)
[2023-11-13 11:02] LABS: AST(SGOT) 67 U/L (15-37); Alanine Aminotransfer ALT/SGPT 45 U/L (13-56); Albumin, Serum 3.9 g/dL (3.2-5.0); Alkaline Phosphatase 76 U/L (45-117); Globulin 3.5 g/dL (2.2-4.2); Protein, Total 7.4 g/dL (6.4-8.2)
== END 2023-12-12 18:00 | disposition home or self-care (01) ==
LOC: MTLAB 07:26
PROVIDERS: PCP Internal Medicine; Referring Provider Internal Medicine Gastroenterology; Visit Provider Internal Medicine Gastroenterology
DX: K51.90 Ulcerative colitis, unspecified, without complications (principal)
CPT/HCPCS: 36415; 80076; 85025

== ENCOUNTER → 2023-12-05 | Outpatient (CLI) | payer OTHER, SELFPAY | END | disposition home or self-care (01) | PROVIDERS: PCP Internal Medicine; Referring Provider Internal Medicine Gastroenterology; Visit Provider Internal Medicine Gastroenterology | DX: K51.90 Ulcerative colitis, unspecified, without complications (principal) | CPT/HCPCS: 36415 ==

== ENCOUNTER → 2023-12-05 | Outpatient (CLI) | payer OTHER, SELFPAY ==
--- NOTE | 2023-12-05 07:44 | CDU_ITS ---
Reason For Study: PULSITILE TINNITUS, BILATERAL Rt. Velocities/BP Lt. Velocities/BP Prox CCA 64.8/24.2 cm/sec. Prox CCA 88.4/34.6 cm/sec. Mid CCA 95.2/31.4 cm/sec. Mid CCA 115.0/42.5 cm/sec. Dist CCA 94.1/38.0 cm/sec. Dist CCA 104.7/35.5 cm/sec. Prox ICA 55.4/21.4 cm/sec. Prox ICA 78.34/32.2 cm/sec. Mid ICA 73.3/35.5 cm/sec. Mid ICA 88.3/42.1 cm/sec. Dist ICA 71.4/30.8 cm/sec. Dist ICA 80.6/38.8 cm/sec. Rt. ICA/CCA = 73.3/95.2=0.8. Lt. ICA/CCA = 88.3/115.0=0.8. Prox ECA 66.6/12.7 cm/sec. Prox ECA 87.2/19.0 cm/sec. Rt. Vert. 40.2/11.9 cm/sec. Lt. Vert. 39.1/14.9 cm/sec. Right Extracranial There is intimal thickening but no significant atherosclerotic plaque noted in the right common carotid artery. There is heterogeneous, irregular atherosclerotic plaque noted in the right internal carotid artery. There is heterogeneous, smooth atherosclerotic plaque noted in the right external carotid artery. Antegrade flow is noted in the right vertebral artery. Left Extracranial There is homogeneous, smooth atherosclerotic plaque noted in the left common carotid artery. There is heterogeneous, irregular atherosclerotic plaque noted in the left internal carotid artery. There is no significant atherosclerotic plaque noted in the left external carotid artery. Antegrade flow is noted in the left vertebral artery. Procedure Carotid Duplex [id number]. This is a Carotid Duplex examination using B-mode, color flow and specral Doppler. Exam performed in department. VL/Carotid Duplex Ultrasound Interpretation Summary Mild (<50%) stenosis right extracranial internal carotid. Mild (<50%) stenosis left extracranial internal carotid. Patent and antegrade vertebrals bilaterally. Ordering Physician: Gloria Bills Referring Physician: Gloria Bills Performed By: Susana León, AYALA, RVT
== END | disposition home or self-care (01) ==
LOC: CVS 07:43
PROVIDERS: PCP Internal Medicine; Referring Provider Internal Medicine; Visit Provider Internal Medicine
DX: H93.A3 Pulsatile tinnitus, bilateral (principal); I65.23 Occlusion and stenosis of bilateral carotid arteries
CPT/HCPCS: 93880

== ENCOUNTER → 2024-01-23 | Outpatient (CLI) | payer OTHER, SELFPAY ==
--- NOTE | 2024-01-23 16:44 | CT_ITS ---
INDICATION: PULSATILE TINNITUS EXAMINATION: CT IAC TEMPORAL BONES - CT IACs W/O Contrast Injection TECHNIQUE: Routine noncontrast CT protocol was performed of the internal auditory canals and temporal bones. 2-D reformats were performed by the technologist. The protocol utilizes one or more of the following dose reduction techniques: automated exposure control, adjustment of mA and/or kV according to patient size,and/or use of iterative reconstruction technique. IV Contrast dosage and agent: None. RADIATION DOSAGE (If Supplied By Facility): CTDIvol = ( 67.58 ) mGy, DLP = ( 671.16 ) mGycm COMPARISON: FINDINGS: RIGHT SIDE: No fracture. SUPERFICIAL SOFT TISSUES: Unremarkable. MASTOID AIR CELLS: Well aerated, unremarkable. EXTERNAL AUDITORY CANALS: Clear. MIDDLE EAR CAVITIES: Well aerated. Ossicles and scutum intact. INTERNAL AUDITORY CANALS: Unremarkable bilateral internal auditory canals. No osseous erosion or widening of the canal. INNER EAR: Unremarkable cochlea, vestibule and semicircular canals. LEFT SIDE: No fracture. SUPERFICIAL SOFT TISSUES: Unremarkable. MASTOID AIR CELLS: Well aerated, unremarkable. EXTERNAL AUDITORY CANALS: Clear. MIDDLE EAR CAVITIES: Well aerated. Ossicles and scutum intact. INTERNAL AUDITORY CANALS: Unremarkable bilateral internal auditory canals. No osseous erosion or widening of the canal. INNER EAR: Unremarkable cochlea, vestibule and semicircular canals. VISUALIZED BRAIN AND POSTERIOR FOSSA: Cerebello-pontine angles are unremarkable. CT/Orb Sella Post Fossa Ear w/o IMPRESSION: Negative CT of the internal auditory canals and temporal bones. Electronically Signed: Yuan Mosqueda MD at 19:10 EDT ,
== END | disposition home or self-care (01) ==
LOC: CT 16:42
PROVIDERS: PCP Internal Medicine; Referring Provider Otolaryngology; Visit Provider Otolaryngology
DX: H93.A2 Pulsatile tinnitus, left ear (principal)
CPT/HCPCS: 70480

== ENCOUNTER 2024-01-31 11:33 | Outpatient (RCR) | payer OTHER, SELFPAY ==
[2024-01-31 12:00] LABS: Absolute Lymphocyte Count 2.38 X10^3/uL (0.83-4.51); Absolute Neutrophil Count 1.5 X10^3/uL (2.0-7.7); Basophil# 0.04 X10^3/uL; Basophil% 0.9 % (0-1); Eosinophil# 0.18 X10^3/uL; Hematocrit 38.1 % (37-47); Hemoglobin 12.5 g/dL (12.0-15.0); Lymphocyte # 2.38 X10^3/ul (0.83-4.51); Lymphocyte % 52.7 % (19-41); Mean Corp Hgb Conc 32.8 g/dL (32-36); Mean Corpuscular Hgb 32.6 pg (27.0-32.0); Mean Corpuscular Volume 99.2 fL (81-99); Monocyte% 8.8 % (0-10); NRBC Flagged by Analyzer 0 % (0-5); Neutrophil # 1.52 X10^3/uL (2.7-7.7); Neutrophil % 33.6 % (47-70); Platelet Count 319 K/mm3 (150-450); RBC Distribution Width CV 15.9 % (11.6-14.6); RBC Distribution Width SD 57.6 fl (35.1-43.9); Red Blood Count 3.84 M/mm3 (4.2-5.4); White Blood Count 4.5 K/mm3 (4.4-11.0)
[2024-01-31 12:34] LABS: AST(SGOT) 31 U/L (15-37); Alanine Aminotransfer ALT/SGPT 25 U/L (13-56); Albumin, Serum 4.2 g/dL (3.2-5.0); Alkaline Phosphatase 63 U/L (45-117); Bilirubin, Direct 0.17 mg/dL (0.00-0.30); Globulin 3.3 g/dL (2.2-4.2); Protein, Total 7.5 g/dL (6.4-8.2)
== END 2024-02-11 18:00 | disposition home or self-care (01) ==
LOC: LAB 11:33
PROVIDERS: PCP Internal Medicine; Referring Provider Internal Medicine Gastroenterology; Visit Provider Internal Medicine Gastroenterology
DX: K51.90 Ulcerative colitis, unspecified, without complications (principal)
CPT/HCPCS: 36415; 80076; 85025

== ENCOUNTER → 2024-09-21 | Outpatient (CLI) | payer OTHER, SELFPAY ==
--- NOTE | 2024-09-21 07:15 | BI_ITS ---
PROCEDURE: SCRN MAMM (CAD)W/EUGENIO BILAT REASON FOR EXAM: F, Age 54 y/o , SCREENING FOR BREAST CANCER. No family history of breast cancer. TECHNIQUE: Bilateral screening digital breast tomosynthesis with 2D and 3D images. Computer aided detection. COMPARISON: 09/19/2023, 05/17/2022 FINDINGS: There are scattered areas of fibroglandular density. No suspicious masses, areas of developing architectural distortion, or suspicious calcifications. BI/SCRN MAMM (CAD)W/EUGENIO BILAT IMPRESSION: There is no mammographic evidence of malignancy. BI-RADS 1: NEGATIVE. RECOMMEND ANNUAL MAMMOGRAPHIC SCREENING. Follow-up code: Routine Follow-up The patient will be notified of the results by letter. Reading Location: [id number]
== END | disposition home or self-care (01) ==
PROVIDERS: PCP Internal Medicine; Referring Provider Nurse Practitioner Women's Health; Visit Provider Nurse Practitioner Women's Health
DX: Z12.31 Encounter for screening mammogram for malignant neoplasm of breast (principal)
CPT/HCPCS: 77063; 77067

== ENCOUNTER → 2024-10-08 | Outpatient (CLI) | payer OTHER, SELFPAY ==
[2024-10-08 10:46] LABS: Absolute Neutrophil Count 1.7 X10^3/uL (2.0-7.7); Basophil# 0.05 X10^3/uL; Hematocrit 37.1 % (37-47); Hemoglobin 12.1 g/dL (12.0-15.0); Lymphocyte % 54.7 % (19-41); Mean Corp Hgb Conc 32.6 g/dL (32-36); Mean Corpuscular Hgb 32.5 pg (27.0-32.0); Mean Corpuscular Volume 99.7 fL (81-99); Mean Platelet Vol. 10.4 fl (6.2-12.0); Monocyte# 0.33 X10^3/uL; Monocyte% 6.7 % (0-10); NRBC Flagged by Analyzer 0 % (0-5); Neutrophil # 1.65 X10^3/uL (2.7-7.7); Neutrophil % 33.4 % (47-70); Platelet Count 282 K/mm3 (150-450); RBC Distribution Width CV 13.8 % (11.6-14.6); RBC Distribution Width SD 50.9 fl (35.1-43.9); Red Blood Count 3.72 M/mm3 (4.2-5.4); White Blood Count 4.9 K/mm3 (4.4-11.0)
[2024-10-08 11:36] LABS: AST(SGOT) 32 U/L (<=31); Alanine Aminotransfer ALT/SGPT 42 U/L (<=34); Albumin, Serum 4.5 g/dL (3.5-5.0); Alkaline Phosphatase 104 U/L (35-104); Bilirubin, Direct 0.18 mg/dL (0.00-0.30); Globulin 2.7 g/dL (2.2-4.2); Protein, Total 7.2 g/dL (5.9-8.4); Total Bilirubin 0.33 mg/dL (0.00-1.30)
== END | disposition home or self-care (01) ==
LOC: MTLAB 07:10
PROVIDERS: PCP Internal Medicine; Referring Provider Internal Medicine Gastroenterology; Visit Provider Internal Medicine Gastroenterology
DX: K51.90 Ulcerative colitis, unspecified, without complications (principal)
CPT/HCPCS: 36415; 80076; 85025

== ENCOUNTER 2025-03-19 10:28 | Emergency (ER) | payer OTHER, SELFPAY ==
[2025-03-19] VITALS (7 sets, daily range): BP systolic 83–124; BP diastolic 58–82; PULSE 74–78; RESP 12–16; TEMP 36.6–36.7; O2SAT 100; BMI 30.2
--- NOTE | 2025-03-19 10:30 | CM.ED ---
Social Work: Date of referral: Reason for referral: Rapid Response Team (ADDICTION COUNSELOR) Furnace Installer Helper responded to the ADDICTION COUNSELOR alert. No family members present; patient was assessed and subsequently taken to the ED. Janie James MSW, ELECTRICAL TEST TECHNICIAN
--- NOTE | 2025-03-19 10:43 | EKG12_ITS ---
Test Reason : SYNCOPE Blood Pressure : */* mmHG Vent. Rate : 69 BPM Atrial Rate : 69 BPM P-R Int : 122 ms QRS Dur : 84 ms QT Int : 386 ms P-R-T Axes : 16 66 80 degrees QTcB Int : 413 ms Normal sinus rhythm Nonspecific T wave abnormality Abnormal ECG Confirmed by Marshall Dc ([id number]), editor book SERG JACKSON ([id number]) on 03/22/2025 5:46:09 AM Referred By: Confirmed By: Marshall Dc
[2025-03-19 11:06] LABS: Hematocrit 36.3 % (37-47); Hemoglobin 12.6 g/dL (12.0-15.0); Immature Granulocytes Count 0.010 X10^3/uL (0.0-0.0); Mean Corp Hgb Conc 34.7 g/dL (32-36); Mean Corpuscular Volume 96.8 fL (81-99); Mean Platelet Vol. 9.4 fl (6.2-12.0); NRBC Flagged by Analyzer 0 % (0-5); Platelet Count 320 K/mm3 (150-450); RBC Distribution Width CV 13.6 % (11.6-14.6); RBC Distribution Width SD 49.4 fl (35.1-43.9); Red Blood Count 3.75 M/mm3 (4.2-5.4); White Blood Count 5.2 K/mm3 (4.4-11.0)
[2025-03-19] MEDS: 0.9% Normal Saline (1000mL) 1,000 ML 999 ML IV ×3 (11:13→13:39)
[2025-03-19 11:14] LABS: Prothrombin Time (Protime)PT. 13.0 SECONDS (11.7-14.9)
[2025-03-19 11:15] LABS: Partial Thromboplast Time 24.9 Seconds (24.1-36.2)
[2025-03-19 11:23] LABS: Anion Gap 13 (5-15); BUN 19 mg/dL (4-19); BUN/Creat Ratio 18.1 RATIO (10-20); Calcium,Total 9.5 mg/dL (7.6-11.0); Carbon Dioxide 24.9 mmol/L (21.0-32.0); Chloride 96 mmol/L (98-108); Estimated Creatinine Clearance 64.52 ml/min (50-250); Glucose 122 mg/dL (70-99); Potassium 3.7 mmol/L (3.3-5.1); Troponin T High Sensitivity 14 ng/L (<=14)
--- OUTSIDE RECORDS SUMMARY | 2025-03-19 11:28 | XMS RPT_ITS | CCD ---
Author Organization [facility] CliniSyca Care Team Providers Care Heat And Frost Insulator Helper Name Role Phone Salena Pak MD Unavailable [...] Unavailable Unavailable Sanju DO Gloria Unavailable Gravius SHAMPOO PERSON, Mayuri Unavailable Unavailable Jayy DONGNGisela Unavailable Unavailable Messenger RAMSES, Indira Unavailable Unavailable Jesse, Noris Unavailable Unavailable Unavailable Unavailable Ady PHOTO EQUIPMENT TECHNICIAN, Kady Unavailable Unavailable Sanju Mukund TOBAReen Unavailable Donell SHAMPOO PERSON, Kayela Unavailable Unavailable Slaluisito CRUZ, Samantha Unavailable Unavailable Gloria Bills DO Attending Unavailable Gloria Bills DO Referring Unavailable Gloria Bills DO Consulting Unavailable Ta FIRE EXTINGUISHER REPAIRER, Aidee Unavailable Candace Hess MA Unavailable Unavailable Carter DONGN, ANDREA Unavailable Unavailable DR JUAN JOSÉ WEINER MD Attending UnavailDr. Gloria Franks Primary Care Provider [phone] Dr. Gloria Bills Referring Provider [phone] Jordan FOUNDRY MANAGER, FOUNDRY MANAGERCiriloC Ngozi Attending Provider DR JUAN JOSÉ WEINER MD Attending UnavailDr. Gloria Franks DO Primary Care Provider Dr. Gloria Bills DO Referring Provider Jose Raul FOUNDRY MANAGER-C, [place] Mishra Attending Provider Jordan FOUNDRY MANAGER-CNgozi Attending Provider Jordan FOUNDRY MANAGER-CNgozi Referring Provider Viv ACKERMAN, Dr. Can Attending Provider Viv ACKERMAN, Dr. Can Referring Provider Sanju, Gloria Primary Care Unavailable Sanju, Glroia Attending Unavailable Sanju, Gloria Referring Unavailable Jabour, [...] Start: 06-16-2012 take 1 capsule by mo [facility] once daily VITAMIN D 2000 UNIT TABS One capsule by mouth daily CHOLECALCIFEROL [id number] Cornelia Velez RN Start: 05-29-2012 End: 05-24-2013 [...] TABLET PO DAILY February 20, 2015 11:00pm [place]-3 Fatty Acids (Fish Oil) 300 MG capsule (10 sources) Start: 02-21-2015 take 1 capsule by mouth once daily [place]-3 Fatty Acids (Fish Oil) 300 MG capsule Active 300 mg PO DAILY February 21, 2015 12:00am Start: 02-21-2015 take 1 capsule by mouth once d aily [place]-3 Fatty Acids (Fish Oil) 300 MG capsule Active 300 MG PO DAILY February 21, 2015 12:00am Start: 02-21-2015 take 1 capsule by mouth once d aily [place]-3 Fatty Acids (Fish Oil) 300 MG capsule [...] VITAMIN E O IL VITAMIN E OIL [id number] Salena Pak MD take 4 capsules by [...] Two tablets by mouth daily CALCIUM CARBONATE [id number] Yonathan Reed MD calcium citrate 1500 mg [...] by mouth daily COD LIVER OIL CAPS [id number] Salena Pak MD Start: 06-17-2012 take 2 tablets by mo [facility] once daily COD LIVER OIL CAPS Two tablets by mouth daily COD LIVER OIL CAPS [id number] Yonathan Reed MD EMOQUETTE, 0.15-30MG-MCG (Oral Tablet) [...] by mouth daily OMEGA-3 FATTY ACIDS CAPS [id number] Yonathan Reed MD take 1 capsule by [...] 7 am morning of procedure METOPROLOL TARTRATE [id number] Yonathan Reed MD MULTIPLE VITAMIN (2 sources) Start: 06-17-20 take 1 tablet by mouth once daily MULTIVITAMINS TABS One tablet by mouth daily MULTIPLE VITAMIN [id number] Yonathan Reed MD Multivitamin Adult (1 source) take 1 tablet by mouth once daily Multivitamin Adult Oral Tablet Chewable ONE DAILY Active Multivitamin Adult Oral Tablet Chewable (20 sources) take 1 tablet by mouth once daily Multivitamin Adult Oral Tablet Chewable ONE DAILY Active omega-3 acid ethyl esters (correction) 1200 mg oral capsule (4 sources) take [...] Medication taken as needed. polyethylene glycol [id number] 50725 mg powder for oral solution (15 sources) [...] sitting outside her norm. 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 [...] (7 sources) Vaccination required; Translations: [Vaccine for aiikewjaar-xwiiqbb-sdk tussis with poliomyelitis] 05-05-2019 Episodic Residual codes; [...] Episodic Comment on above: positive ELVA and WOODWORKING BELT SANDER has dx UC has scopes up to [...] (1 source) Requires vaccination; Translations: [Vaccine for mrrjagcwab-xmtyxvn-an rtussis with poliomyelitis] 05-29-2018 Unclassified (16 sources) [...] Neutrophils (Bld) [#/Vol] 1.7 10*3/uL Low 2.0-7.7 [facility] Basophil percentageOrdered B y: Juan José Weiner on 10-08-2024 Basophils/100 WBC (Bld) 1.0 % 0-1 [facility] Bilirubin directOrdered By: Juan José Weiner on 10-08-2024 Bilirubin.direct [Mass/Vol] 0.18 mg/dL 0.00-0.30 [facility] Bilirubin, totalOrdered By: Juan José Weiner on 10-08-2024 Bilirubin [Mass/Vol] 0.33 mg/dL 0.00-1.30 [facility] CBC W/Diff, Automatedon 03-2 Absolute Lymph 2.70 X10 3/uL Normal 0.83-4.51 [facility] Comment on above: Performed By: #### L 100.0100, L500.3400 #### [facility] [address] [place], [address] Absolute Neut 1.7 X10 3/uL Low 2.0-7.7 [facility] Comment on above: Performed By: #### L 100.0100, L500.3400 #### [facility] [address] [place], [address] Basophils/100 WBC (Bld) 1.0 % Normal 0-1 [facility] Comment on above: Performed By: #### L 100.0100, L500.3400 #### [facility] [address] [place], [address] Eosinophils/100 WBC (Bld) 4.0 % Normal 0-5 [facility] Comment on above: Performed By: #### L 100.0100, L500.3400 #### [facility] [address] [place], [address] Erythrocyte distribution width (RBC) [Ratio] 13.8 % Normal 11.6-14.6 [facility] Comment on above: Performed By: #### L 100.0100, L500.3400 #### [facility] [address] [place], [address] Hematocrit (Bld) [Volume fraction] 37.1 % Normal 37-47 [facility] Comment on above: Performed By: #### L 100.0100, L500.3400 #### [facility] [address] [place], [address] Hemoglobin (Bld) [Mass/Vol] 12.1 g/dL Normal 12.0-15.0 [facility] Comment on above: Performed By: #### L 100.0100, L500.3400 #### [facility] [address] [place], [address] IG% 0.200 Normal 0.0-0.9 [facility] Comment on above: Result Comment: IG% - Immature Granulocytes (promyelocytes, myelocytes and metamyelocytes) > 1% indicates that a LEFT SHIFT is Present. Performed By: #### L 100.0100, L500.3400 #### [facility] [address] [place], [address] Lymphocytes/100 WBC (Bld) 54.7 % High 19-41 [facility] Comment on above: Performed By: #### L 100.0100, L500.3400 #### [facility] [address] [place], [address] MCH (RBC) [Entitic mass] 32.5 pg High 27.0-32.0 [facility] Comment on above: Performed By: #### L 100.0100, L500.3400 #### [facility] [address] [place], [address] MCHC (RBC) [Mass/Vol] 32.6 g/dL Normal 32-36 [facility] Comment on above: Performed By: #### L 100.0100, L500.3400 #### [facility] [address] [place], [address] MCV (RBC) [Entitic vol] 99.7 fL High 81-99 [facility] Comment on above: Performed By: #### L 100.0100, L500.3400 #### [facility] [address] [place], [address] Monocytes/100 WBC (Bld) 6.7 % Normal 0-10 [facility] Comment on above: Performed By: #### L 100.0100, L500.3400 #### [facility] [address] [place], [address] Neutrophils/100 WBC (Bld) 33.4 % Low 47-70 [facility] Comment on above: Performed By: #### L 100.0100, L500.3400 #### [facility] [address] [place], [address] Nucleated RBC (Bld) [#/Vol] 0 10*3/uL Normal 0-5 [facility] Comment on above: Performed By: #### L 100.0100, L500.3400 #### [facility] [address] [place], [address] Platelet mean volume (Bld) [Entitic vol] 10.4 fL Normal 6.2-12.0 [facility] Comment on above: Performed By: #### L 100.0100, L500.3400 #### [facility] [address] [place], [address] Platelets (Bld) [#/Vol] 282 10*3/uL Normal 150-450 [facility] Comment on above: Performed By: #### L 100.0100, L500.3400 #### [facility] [address] [place], [address] RBC (Bld) [#/Vol] 3.72 10*6/uL Low 4.2-5.4 [facility] Comment on above: Performed By: #### L 100.0100, L500.3400 #### [facility] [address] [place], [address] RDW SD 50.9 fl High 35.1-43.9 [facility] Comment on above: Performed By: #### L 100.0100, L500.3400 #### [facility] [address] [place], [address] WBC (Bld) [#/Vol] 4.9 10*3/uL Normal 4.4-11.0 [facility] Comment on above: Performed By: #### L 100.0100, L500.3400 #### [facility] [address] [place], [address] Eosinophil percentageOrdered By: Juan José Weiner on 10-08-2024 Eosinophils/100 WBC (Bld) 4.0 % 0-5 [facility] Erythrocyte distribution wid th (RBC) [Ratio]Ordered By: Juan José Weiner on 10-08-2024 Erythrocyte distribution width (RBC) [Entitic vol] 50.9 fL High 35.1-43.9 [facility] Erythrocyte distribution wid th ratioOrdered By: [facility] Systems[facility]ine Weiner on 10-08-2024 Erythrocyte distribution width (RBC) [Ratio] 13.8 % 11.6-14.6 [facility] Hematocrit Auto (Bld) [Volum e fraction]Ordered By: Juan José Weiner on 10-08-2024 Hematocrit (Bld) [Volume fraction] 37.1 % 37-47 [facility] Hemoglobin measurementOrdere d By: Juan José Weiner on 10-08-2024 Hemoglobin (Bld) [Mass/Vol] 12.1 g/dL 12.0-15.0 [facility] Immature granulocytes/100 WB C Auto (Bld)Ordered By: Juan José Weiner on 10-08-2024 Immature granulocytes/100 WBC (Bld) 0.200 % 0.0-0.9 [facility] Comment on above: IG% - Immature Granu locytes (promyelocytes, myelocytes and metamyelocytes) > 1% indicates that a LEFT SHIFT is Present. Laboratory - Chemistry and C hemistry - challengeOrdered By: Juan José Weiner on 10-08-2024 AST [Catalytic activity/Vol] 32 U/L <32 [facility] Liver Profileon 10-08-2024 Albumin [Mass/Vol] 4.5 g/dL Normal 3.5-5.0 [facility] Comment on above: Performed By: #### L 100.0100, L500.3400 #### [facility] [address] [place], [address] ALK PHOS 104 U/L Normal 35-104 [facility] Comment on above: Performed By: #### L 100.0100, L500.3400 #### [facility] [address] [place], [address] ALT [Catalytic activity/Vol] 42 U/L High <=34 [facility] Comment on above: Performed By: #### L 100.0100, L500.3400 #### [facility] [address] [place], [address] AST [Catalytic activity/Vol] 32 U/L Normal <=31 [facility] Comment on above: Performed By: #### L 100.0100, L500.3400 #### [facility] [address] [place], [address] Bilirubin [Mass/Vol] 0.33 mg/dL Normal 0.00-1.30 [facility] Comment on above: Performed By: #### L 100.0100, L500.3400 #### [facility] [address] [place], [address] Bilirubin.direct [Mass/Vol] 0.18 mg/dL Normal 0.00-0.30 [facility] Comment on above: Performed By: #### L 100.0100, L500.3400 #### [facility] [address] [place], [address] Globulin (S) [Mass/Vol] 2.7 g/dL Normal 2.2-4.2 [facility] Comment on above: Performed By: #### L 100.0100, L500.3400 #### [facility] [address] [place], [address] T PROT 7.2 g/dL Normal 5.9-8.4 [facility] Comment on above: Performed By: #### L 100.0100, L500.3400 #### [facility] [place], [address] Lymphocytes Auto (Unsp spec) [#/Vol]Ordered By: Juan José Weiner on 10-08-2024 Lymphocytes (Bld) [#/Vol] 2.70 10*3/uL 0.83-4.51 [facility] Lymphocytes/100 WBC Auto (Un sp spec)Ordered By: Juan José Weiner on 10-08-2024 Lymphocytes/100 WBC (Bld) 54.7 % High 19-41 [facility] MCV (mean corpuscular volume ) determinationOrdered By: Juan José Weiner on 10-08-2024 MCV (RBC) [Entitic vol] 99.7 fL High 81-99 [facility] Mean corpuscular hemoglobin (MCH) determinationOrdered By: Juan José Weiner on 10-08-2024 MCH (RBC) [Entitic mass] 32.5 pg High 27.0-32.0 [facility] Mean corpuscular hemoglobin concentration (MCHC) determinationOrdered By: Juan José Weiner on 10-08-2024 MCHC (RBC) [Mass/Vol] 32.6 g/dL 32-36 [facility] Mean platelet volume determi nationOrdered By: Juan José Weiner on 10-08-2024 Platelet mean volume (Bld) [Entitic vol] 10.4 fL 6.2-12.0 [facility] Monocyte percentageOrdered B y: Juan José Weiner on 10-08-2024 Monocytes/100 WBC (Bld) 6.7 % 0-10 [facility] Neutrophil percentageOrdered By: Juan José Weiner on 10-08-2024 Neutrophils/100 WBC (Bld) 33.4 % Low 47-70 [facility] Nucleated red blood cell per centageOrdered By: Juan José Weiner on 10-08-2024 Nucleated RBC/100 WBC (Bld) [Ratio] 0 % 0-5 [facility] Platelet countOrdered By: Amada Weiner on 10-08-2024 Platelets (Bld) [#/Vol] 282 10*3/uL 150-450 [facility] RBC Auto (Bld) [#/Vol]Ordere d By: Juan José Weiner on 10-08-2024 RBC (Bld) [#/Vol] 3.72 10*6/uL Low 4.2-5.4 [facility] Serum globulin measurementOr dered By: Juan José Weiner on 10-08-2024 Globulin (S) [Mass/Vol] 2.7 g/dL 2.2-4.2 [facility] Serum or plasma alanine collins otransferase (ALT) measurementOrdered By: Juan José Weiner on 10-08-2024 ALT [Catalytic activity/Vol] 42 U/L High <35 [facility] Serum or plasma albumin karlo urement (mass/volume)Ordered By: Juan José Weiner on 10-08-2024 Albumin [Mass/Vol] 4.5 g/dL 3.5-5.0 [facility] Serum or plasma alkaline [place] sphatase measurementOrdered By: Juan José Weiner on 10-08-2024 ALP [Catalytic activity/Vol] 104 U/L 35-104 [facility] Total proteinOrdered By: Sinan Weiner on 10-08-2024 Protein [Mass/Vol] 7.2 g/dL 5.9-8.4 [facility] White blood cell (WBC) count Ordered By: Juan José Weiner on 10-08-2024 WBC (Bld) [#/Vol] 4.9 10*3/uL 4.4-11.0 [facility] Breast imaging reportOrdered By: Estrella Calvert on 09-21-2024 Study report [facility] Imaging Services [address] [place] [address] SCRN MAMM (CAD)W/EUGENIO BILAT MR#: [id number] Acct: [id number] Name: VIRGINIA VILLAGRAN Rep #: [id number] : 1970 F 54 From: Yusra Calvert MD PCP: Dr. Gloria Bills, DO Status: RE G CLI Study:SCRN MAMM (CAD)W/EUGENIO BILAT Date of Exa m: 09/21/24 Exam# [id number] Ordering Dr: Ngozi Ortega FOUNDRY MANAGER FOUNDRY MANAGER-C PROCEDURE: SCRN MAMM (CAD)W/EUGENIO BILAT REASON FOR [...] of the results by letter. Reading Location: [facility] CC: FOUNDRY MANAGER-Oly Ortega; Dr. Gloria Bills DO ~ Textile Machine Operator: Signed [facility] SCRN MAMM (CAD)W/EUGENIO BILATo n 09-21-2024 SCRN MAMM (CAD)W/EUGENIO BILAT [facility] Imaging Services [address] [place] [id number] SCRN MAMM (CAD)W/EUGENIO BILAT MR#: [id number] Acct: [id number] Name: VIRGINIA VILLAGRAN Rep #: [id number] : 1970 F 54 From: Estrella Calvert MD PCP: Dr. Gloria Bills DO Status: REG CLI Study: SCRN MAMM (CAD)W/EUGENIO BILAT Date of Exam: 09/11 08/07 Exam# [id number] Ordering Dr: Ngozi Ortega NP FOUNDRY MANAGER -C PROCEDURE: SCRN MAMM (CAD)W/EUGENIO BILAT REASON [...] of the results by letter. Reading Location: [facility] CC: COLBY Ortega; Dr. Gloria Bills, Textile Machine Operator: Signed Normal [facility] Leases And Land Supervisor Office Visit Reporton 09-08-2024 Leases And Land Supervisor Office Visit Report [facility] [address], [address] [place] [address] OFFICE VISIT Date of Service: 09/08/24 MR#: [id number] Acct: [id number] Name: VIRGINIA VILLAGRAN Rep #: [id number] : 1970 Provider: COLBY izaguirre Age/Sex: 54/F Location: [facility] Status: Signed Intake Vital Signs 09/02/23 14:30 06/27/24 13:52 09/08/24 08:05 09/08/24 08:12 Height 5 ft 6 in 5 ft 6 in 5 ft 6 in 5 ft 6 in Weight: 182 lb BMI 29.3 BP 120/76 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: Annual Central Processing Technician Required: No Is patient in pain?: No [...] menopausal: Yes Patient : No : No [facility] Medical History Hypertension Psoriasis Ulcerative colitis High cholesterol Surgical History Status post hysteroscopy Social History Smoking Status: Never smoker Electronic Cigarette Use: not used second hand exposure: No alcohol intake: never substance use type: does not use en/baptist: Voodoo seatbelt use: always do you feel safe [...] oriented to person and oriented to place [facility] Head: normal to inspection Neck Neck: normal [...] adnexae, no (more content not included)... Normal [facility] Final Surgical Pathology Rep [facility] 07-19-2024 Final Surgical Pathology Report . Pathology Reports Accession: Collected Date/Time: Received Date/Time: Pathologist: [id number] 07/15/2024 14:04 EST 07/16/2024 08:25 [place]O ABDI [...] All parts labelled with patient name and [id number] A. Received in formalin labeled right colon are 5 nieto-brown tissue fragments measuring 0.2 to 0.3 x 0.2 cm greatest dimension. Possible flecks, which may not survive processing, also identified. TS-1 B. Received in formalin labeled left colon are multiple wispy nieto-brown tissue fragments aggregating 2.0 x 0.3 x 0.2 cm greatest dimension. Smallest fragments may not survive processing. TS-1 Kirstie Beaulieu, Grossing Vp Training/ Dr. Orlando Crouch, Pathologist Performed by Kirstie Beaulieu MICROSCOPIC DESCRIPTION: The microscopic examination is performed, except in the case of Gross Only. Electronically Signed by Pathology Report verified by [facility] ORLANDO CROUCH Sign out Date: 07/19/2024 10:39 Performing Lab: [facility], [address] [place] [address] Pathology Dept Disclaimer If ancillary studies were utilized, the following Laboratory Developed Test (LDT) disclaimer will apply: Under CLIA requirements, [facility] Pathology Laboratory is qualified to perform high complexity testing. For all ancillary stains, positive and negative controls stain appropriately. Performance characteristics of immunohistochemical and chromogenic in-situ hybridization tests have been determined by [facility]. These tests are used for clinical purposes, They should not be regarded as investigational or for research. Normal [facility] Final Surgical Pathology Report #[id number] [facility] Final Surgical Pathology Report #[id number] [facility] Final Surgical Pathology Report #[id number] [facility] Final Surgical Pathology Report #[id number] [facility] Final Surgical Pathology Report #[id number] [facility] Final Surgical Pathology Report #[id number] [facility] Final Surgical Pathology Report #[id number] [facility] Office Visit Reporton 2023 Office Visit Report [facility] [place] [address] OFFICE VISIT Date of Service: 06/27/24 MR#: [id number] Acct: [id number] Patient: VIRGINIA VILLAGRAN Rep #: [id number] : 1970 Provider: COLBY weiss Age/Sex: 54/F Location: [facility] Status: Signed Intake Vital Signs 09/02/23 14:30 [...] Chief Complaint: cough, ST, [place], [place], drainage Central Processing Technician Required: No Is patient in pain?: No [...] covid tests (all neg) most recent today. [facility] Medical History Hypertension Psoriasis Ulcerative colitis High cholesterol Surgical History Status post hysteroscopy Social History (Updated 09/02/23 @ 14:27 by Adelina Quinonez) Smoking Status: Never smoker Electronic Cigarette Use: not used second hand exposure: No alcohol intake: never substance use type: does not use en/baptist: Voodoo seatbelt use: always do you feel safe [...] No fa (more content not included)... Normal [facility] CBC W/Diff, Automatedon 07-2 0-2023 Absolute Lymph 2.38 X10 3/uL Normal 0.83-4.51 [facility] Comment on above: Performed By: #### L 500.3400, L100.0100 ####[facility] [address] [place], [address] Absolute Neut 1.5 X10 3/uL Low 2.0-7.7 [facility] Comment on above: Performed By: #### L 500.3400, L100.0100 ####[facility] [address] [place], [address] Basophils/100 WBC (Bld) 0.9 % Normal 0-1 [facility] Comment on above: Performed By: #### L 500.3400, L100.0100 ####[facility] [address] [place], [address] Eosinophils/100 WBC (Bld) 4.0 % Normal 0-5 [facility] Comment on above: Performed By: #### L 500.3400, L100.0100 ####[facility] [address] [place], [address] Erythrocyte distribution width (RBC) [Ratio] 15.9 % High 11.6-14.6 [facility] Comment on above: Performed By: #### L 500.3400, L100.0100 ####[facility] [address] [place], [address] Hematocrit (Bld) [Volume fraction] 38.1 % Normal 37-47 [facility] Comment on above: Performed By: #### L 500.3400, L100.0100 ####[facility] [address] [place], [address] Hemoglobin (Bld) [Mass/Vol] 12.5 g/dL Normal 12.0-15.0 [facility] Comment on above: Performed By: #### L 500.3400, L100.0100 ####[facility] [address] [place], [address] IG% 0.000 Normal 0.0-0.9 [facility] Comment on above: Result Comment: IG% - Immature Granulocytes (promyelocytes, myelocytes and metamyelocytes) > 1% indicates that a LEFT SHIFT is Present. Performed By: #### L 500.3400, L100.0100 ####[facility] [address] [place], [address] Lymphocytes/100 WBC (Bld) 52.7 % High 19-41 [facility] Comment on above: Performed By: #### L 500.3400, L100.0100 ####[facility] [address] [place], [address] MCH (RBC) [Entitic mass] 32.6 pg High 27.0-32.0 [facility] Comment on above: Performed By: #### L 500.3400, L100.0100 ####[facility] [address] [place], [address] MCHC (RBC) [Mass/Vol] 32.8 g/dL Normal 32-36 [facility] Comment on above: Performed By: #### L 500.3400, L100.0100 ####[facility] [address] [place], [address] MCV (RBC) [Entitic vol] 99.2 fL High 81-99 [facility] Comment on above: Performed By: #### L 500.3400, L100.0100 ####[facility] [address] [place], [address] Monocytes/100 WBC (Bld) 8.8 % Normal 0-10 [facility] Comment on above: Performed By: #### L 500.3400, L100.0100 ####[facility] [address] [place], [address] Neutrophils/100 WBC (Bld) 33.6 % Low 47-70 [facility] Comment on above: Performed By: #### L 500.3400, L100.0100 ####[facility] [address] [place], [address] Nucleated RBC (Bld) [#/Vol] 0 10*3/uL Normal 0-5 [facility] Comment on above: Performed By: #### L 500.3400, L100.0100 ####[facility] [address] [place], [address] Platelet mean volume (Bld) [Entitic vol] 10.0 fL Normal 6.2-12.0 [facility] Comment on above: Performed By: #### L 500.3400, L100.0100 ####[facility] [address] [place], [address] Platelets (Bld) [#/Vol] 319 10*3/uL Normal 150-450 [facility] Comment on above: Performed By: #### L 500.3400, L100.0100 ####[facility] [address] [place], [address] RBC (Bld) [#/Vol] 3.84 10*6/uL Low 4.2-5.4 [facility] Comment on above: Performed By: #### L 500.3400, L100.0100 ####[facility] [address] [place], [address] RDW SD 57.6 fl High 35.1-43.9 [facility] Comment on above: Performed By: #### L 500.3400, L100.0100 ####[facility] [address] [place], [address] WBC (Bld) [#/Vol] 4.5 10*3/uL Normal 4.4-11.0 [facility] Comment on above: Performed By: #### L 500.3400, L100.0100 ####[facility] [address] [place], [address] Liver Profileon 01-31-2024 Albumin [Mass/Vol] 4.2 g/dL Normal 3.2-5.0 [facility] Comment on above: Performed By: #### L 500.3400, L100.0100 ####[facility] [address] [place], [address] ALK P 63 U/L Normal 45-117 [facility] Comment on above: Performed By: #### L 500.3400, L100.0100 ####[facility] [address] [place], [address] ALT [Catalytic activity/Vol] 25 U/L Normal 13-56 [facility] Comment on above: Performed By: #### L 500.3400, L100.0100 ####[facility] [address] [place], [address] AST [Catalytic activity/Vol] 31 U/L Normal 15-37 [facility] Comment on above: Performed By: #### L 500.3400, L100.0100 ####[facility] [address] [place], [address] Bilirubin [Mass/Vol] 0.60 mg/dL Normal 0.20-1.00 [facility] Comment on above: Result Comment: For patients on eltrombopag therapy, use of Dimension [place] TBIL is not recommended. Performed By: #### L 500.3400, L100.0100 ####[facility] [address] [place], [address] Bilirubin.direct [Mass/Vol] 0.17 mg/dL Normal 0.00-0.30 [facility] Comment on above: Performed By: #### L 500.3400, L100.0100 ####[facility] [address] [place], [address] Globulin (S) [Mass/Vol] 3.3 g/dL Normal 2.2-4.2 [facility] Comment on above: Performed By: #### L 500.3400, L100.0100 ####[facility] [address] [place], [address] T PROT 7.5 g/dL Normal 6.4-8.2 [facility] Comment on above: Performed By: #### L 500.3400, L100.0100 ####[facility] [address] [place], [address] Orb Sella Post Fossa Ear w/o on 01-23-2024 Orb Sella Post Fossa Ear w/o [facility] Imaging Services [address] [place] [address] Orb Sella Post Fossa Ear w/o MR#: [id number] Acct: [id number] Name: VIRGINIA VILLAGRAN Rep #: [id number] : 1970 F 53 From: Yuan Mosqueda MD PCP: Dr. Gloria Bills, DO Status: REG CLI Study: Orb Sella Post Fossa Ear w/o Date of Exam: 07/06 Exam# [id number] Ordering Dr: [place] [id number] INDICATION: PULSATILE TINNITUS EXAMINATION: CT IAC TEMPORAL [...] Kane Chen MD; Dr. Gloria Bills DO Textile Machine Operator: Signed Normal [facility] Miscellaneous Lab Procedureo n 12-18-2023 [facility] LAB TEST Normal [facility] Comment on above: Order Comment: [id number] INFLIXIMAB DRUG LEVEL SST FZ [id number] INFLIXIMAB DRUG LEVEL SST FZ Result Comment: Scan lola image report available in EMR Performed By: #### L 801.1541 #### [facility] [address] [place], [address] Carotid Duplex Ultrasoundon 12-05-2023 Carotid Duplex Ultrasound [facility] [address] [place] [address] Carotid Duplex Ultrasound 12/05/23 0754 MR#: [id number] Acct: [id number] Name: VIRGINIA VILLAGRAN Rep #: [id number] : 1970 53 From: Armin Herrera MD [...] the left vertebral artery. Procedure Carotid Duplex 52801. This is a Carotid Duplex examination using B-mode, color flow and specral Doppler. Exam performed in department. VL/Carotid Duplex Ultrasound Interpretation Summary Mild (<50%) stenosis right extracranial internal carotid. Mild (<50%) stenosis left extracranial internal carotid. Patent and antegrade vertebrals bilaterally. Ordering Physician: Gloria Blils Referring Physician: Gloria Bills Performed By: Susana León, RDCS, RVT 12/09/23 377 Date Armin Herrera MD CC: Dr. Gloria Bills, DO Date Dictated: 12/05/23 075 Date Transcribed: 12/09/231834 Textile Machine Operator: Signed Normal [facility] CBC W/Diff, Automatedon 05-0 2-2023 Absolute Lymph 1.89 X10 3/uL Normal 0.83-4.51 [facility] Comment on above: Performed By: #### L 500.3400, L100.0100 #### [facility] [address] [place], [address] Absolute Neut 2.1 X10 3/uL Normal 2.0-7.7 [facility] Comment on above: Performed By: #### L 500.3400, L100.0100 #### [facility] [address] [place], [address] Basophils/100 WBC (Bld) 1.0 % Normal 0-1 [facility] Comment on above: Performed By: #### L 500.3400, L100.0100 #### [facility] [address] [place], [address] Eosinophils/100 WBC (Bld) 5.4 % High 0-5 [facility] Comment on above: Performed By: #### L 500.3400, L100.0100 #### [facility] [address] [place], [address] Erythrocyte distribution width (RBC) [Ratio] 12.5 % Normal 11.6-14.6 [facility] Comment on above: Performed By: #### L 500.3400, L100.0100 #### [facility] [address] [place], [address] Hematocrit (Bld) [Volume fraction] 40.0 % Normal 37-47 [facility] Comment on above: Performed By: #### L 500.3400, L100.0100 #### [facility] [address] [place], [address] Hemoglobin (Bld) [Mass/Vol] 12.5 g/dL Normal 12.0-15.0 [facility] Comment on above: Performed By: #### L 500.3400, L100.0100 #### [facility] [address] [place], [address] IG% 0.200 Normal 0.0-0.9 [facility] Comment on above: Result Comment: IG% - Immature Granulocytes (promyelocytes, myelocytes and metamyelocytes) > 1% indicates that a LEFT SHIFT is Present. Performed By: #### L 500.3400, L100.0100 #### [facility] [address] [place], [address] Lymphocytes/100 WBC (Bld) 39.4 % Normal 19-41 [facility] Comment on above: Performed By: #### L 500.3400, L100.0100 #### [facility] [address] [place], [address] MCH (RBC) [Entitic mass] 30.8 pg Normal 27.0-32.0 [facility] Comment on above: Performed By: #### L 500.3400, L100.0100 #### [facility] [address] [place], [address] MCHC (RBC) [Mass/Vol] 31.3 g/dL Low 32-36 [facility] Comment on above: Performed By: #### L 500.3400, L100.0100 #### [facility] [address] [place], [address] MCV (RBC) [Entitic vol] 98.5 fL Normal 81-99 [facility] Comment on above: Performed By: #### L 500.3400, L100.0100 #### [facility] [address] [place], [address] Monocytes/100 WBC (Bld) 10.2 % High 0-10 [facility] Comment on above: Performed By: #### L 500.3400, L100.0100 #### [facility] [address] [place], [address] Neutrophils/100 WBC (Bld) 43.8 % Low 47-70 [facility] Comment on above: Performed By: #### L 500.3400, L100.0100 #### [facility] [address] [place], [address] Nucleated RBC (Bld) [#/Vol] 0 10*3/uL Normal 0-5 [facility] Comment on above: Performed By: #### L 500.3400, L100.0100 #### [facility] [address] [place], [address] Platelet mean volume (Bld) [Entitic vol] 11.2 fL Normal 6.2-12.0 [facility] Comment on above: Performed By: #### L 500.3400, L100.0100 #### [facility] [address] [place], [address] Platelets (Bld) [#/Vol] 321 10*3/uL Normal 150-450 [facility] Comment on above: Performed By: #### L 500.3400, L100.0100 #### [facility] [address] [place], [address] RBC (Bld) [#/Vol] 4.06 10*6/uL Low 4.2-5.4 [facility] Comment on above: Performed By: #### L 500.3400, L100.0100 #### [facility] [address] [place], [address] RDW SD 45.6 fl High 35.1-43.9 [facility] Comment on above: Performed By: #### L 500.3400, L100.0100 #### [facility] [address] [place], [address] WBC (Bld) [#/Vol] 4.8 10*3/uL Normal 4.4-11.0 [facility] Comment on above: Performed By: #### L 500.3400, L100.0100 #### [facility] [address] [place], [address] Liver Profileon 11-13-2023 Albumin [Mass/Vol] 3.9 g/dL Normal 3.2-5.0 [facility] Comment on above: Performed By: #### L 500.3400, L100.0100 #### [facility] [address] [place], [address] ALK P 76 U/L Normal 45-117 [facility] Comment on above: Performed By: #### L 500.3400, L100.0100 #### [facility] [address] [place], [address] ALT [Catalytic activity/Vol] 45 U/L Normal 13-56 [facility] Comment on above: Performed By: #### L 500.3400, L100.0100 #### [facility] [address] [place], [address] AST [Catalytic activity/Vol] 67 U/L High 15-37 [facility] Comment on above: Performed By: #### L 500.3400, L100.0100 #### [facility] [address] [place], [address] Bilirubin [Mass/Vol] 0.30 mg/dL Normal 0.20-1.00 [facility] Comment on above: Result Comment: For patients on eltrombopag therapy, use of Dimension [place] TBIL is not recommended. Performed By: #### L 500.3400, L100.0100 #### [facility] [address] [place], [address] Bilirubin.direct [Mass/Vol] 0.10 mg/dL Normal 0.00-0.30 [facility] Comment on above: Performed By: #### L 500.3400, L100.0100 #### [facility] [address] [place], [address] Globulin (S) [Mass/Vol] 3.5 g/dL Normal 2.2-4.2 [facility] Comment on above: Performed By: #### L 500.3400, L100.0100 #### [facility] [address] [place], [address] T PROT 7.4 g/dL Normal 6.4-8.2 [facility] Comment on above: Performed By: #### L 500.3400, L100.0100 #### [facility] [address] [place], [address] Absolute lymphocyte countOrd ered By: Juan José Weiner on 08-15-2023 Lymphocytes Auto (Unsp spec) [#/Vol] 1.76 10*3/uL 0.83-4.51 [facility] Automated lymphocyte count a s percentage of total leukocytesOrdered By: Juan José Weiner on 08-15-2023 Lymphocytes/100 WBC Auto (Unsp spec) 29.7 % 19-41 [facility] Basophil percentageOrdered B y: Juan José Weiner on 08-15-2023 Basophils/100 WBC (Bld) 0.5 % 0-1 [facility] Eosinophils/100 WBC (Bld) 4.7 % 0-5 [facility] Hemoglobin (Bld) [Mass/Vol] 11.6 g/dL 12.0-15.0 [facility] Monocytes/100 WBC (Bld) 7.1 % 0-10 [facility] Neutrophils (Bld) [#/Vol] 3.4 10*3/uL 2.0-7.7 [facility] Neutrophils/100 WBC (Bld) 57.7 % 47-70 [facility] WBC (Bld) [#/Vol] 5.9 10*3/uL 4.4-11.0 [facility] Determination of erythrocyte mean corpuscular volume (MCV)Ordered By: Juan José Weiner on 08-15-2023 MCV (RBC) [Entitic vol] 97.6 fL 81-99 [facility] Erythrocyte distribution wid th ratioOrdered By: Juan José Weiner on 08-15-2023 Erythrocyte distribution width (RBC) [Ratio] 13.4 % 11.6-14.6 [facility] Erythrocyte distribution wid th standard deviationOrdered By: Juan José Weiner on 08-15-2023 Erythrocyte distribution width (RBC) [Entitic vol] 47.8 fL 35.1-43.9 [facility] Hematocrit Auto (Bld) [Volum e fraction]Ordered By: Juan José Weiner on 08-15-2023 Hematocrit (Bld) [Volume fraction] 36.7 % 37-47 [facility] Immature granulocytes/100 WB C Auto (Bld)Ordered By: Juan José Weiner on 08-15-2023 Immature granulocytes/100 WBC (Bld) 0.300 % 0.0-0.9 [facility] Comment on above: IG% - Immature Granu locytes (promyelocytes, myelocytes and metamyelocytes) > 1% indicates that a LEFT SHIFT is Present. Laboratory - Hematology and Cell countsOrdered By: Juan José Weiner on 08-15-2023 MCH (RBC) [Entitic mass] 30.9 pg 27.0-32.0 [facility] MCHC (RBC) [Mass/Vol] 31.6 g/dL 32-36 [facility] Nucleated RBC/100 WBC (Bld) [Ratio] 0 % 0-5 [facility] Platelets (Bld) [#/Vol] 311 10*3/uL 150-450 [facility] No Panel InformationOrdered By: Juan José Weiner on 08-15-2023 Hepatitis B Surface Antigen Non-Reactive Nonreactive [facility] Platelet mean volume David-Ec ker (Bld) [Entitic vol]Ordered By: Juan José Weiner on 08-15-2023 Platelet mean volume (Bld) [Entitic vol] 10.7 fL 6.2-12.0 [facility] Qualitative QuantiFERON-TB g old in tube testOrdered By: Juan José Weiner on 08-15-2023 M. tuberculosis tuberculin stim IFN-g Ql (Bld) 0 IU/mL . [facility] RBC Auto (Bld) [#/Vol]Ordere d By: Juan José Weiner on 08-15-2023 RBC (Bld) [#/Vol] 3.76 10*6/uL 4.2-5.4 [facility] Thin prep Papanicolaou smear with manual screeningOrdered By: Juan José Weiner on 08-15-2023 Thin prep Papanicolaou smear with manual screening Comment . [facility] Comment on above: QuantiFERON-TB Gold Plus [...] smear with manual screening 0 IU/mL . [facility] Thin prep Papanicolaou smear with manual screening > 10.00 IU/mL . [facility] Thin prep Papanicolaou smear with manual screening Negative Negative [facility] Comment on above: No response to [...] the productionof interferon gamma. Chemiluminescence immunoassaymethodologyPerformed at: [facility] [id number] Director: Juan José Garcia PhD, Phone: [phone] Clostridioides difficile nuc leic acid assay by PCROrdered By: Juan José Weiner on 06-19-2023 C. difficile DNA TERI+probe Ql (Unsp spec) [facility] Clostridium difficile detect ion by polymerase chain reactionOrdered By: Juan José Weiner on 06-19-2023 C. difficile DNA TERI+probe Ql (Unsp spec) [facility] Basophil percentageOrdered B y: Juan José Weiner on 06-18-2023 Bilirubin [Mass/Vol] 0.30 mg/dL 0.20-1.00 [facility] Comment on above: For patients on eltr ombopag therapy, use of Dimension [place] TBIL is not recommended. Protein [Mass/Vol] 8.2 g/dL 6.4-8.2 [facility] WBC (Bld) [#/Vol] 6.9 10*3/uL 4.4-11.0 [facility] Blood erythrocytes count (nu mber/volume)Ordered By: Juan José Weiner on 06-18-2023 RBC (Bld) [#/Vol] 4.24 10*6/uL 4.2-5.4 [facility] Blood hemoglobin measurement (mass/volume)Ordered By: Juan José Weiner on 06-18-2023 Hemoglobin (Bld) [Mass/Vol] 13.3 g/dL 12.0-15.0 [facility] Blood platelet mean volumeOr dered By: Juan José Weiner on 06-18-2023 Platelet mean volume (Bld) [Entitic vol] 10.2 fL 6.2-12.0 [facility] Determination of erythrocyte mean corpuscular volume (MCV)Ordered By: Juan José Weiner on 06-18-2023 MCV (RBC) [Entitic vol] 98.6 fL 81-99 [facility] Direct bilirubinOrdered By: Juan José Weiner on 06-18-2023 Bilirubin.direct [Mass/Vol] 0.11 mg/dL 0.00-0.30 [facility] Erythrocyte sedimentation ra teOrdered By: Juan José Weiner on 06-18-2023 ESR (Bld) [Velocity] 15 mm/h 0-30 [facility] Hematocrit Auto (Bld) [Volum e fraction]Ordered By: Juan José Weiner on 12-06-2023 Hematocrit (Bld) [Volume fraction] 41.8 % 37-47 [facility] Laboratory - Chemistry and C hemistry - challengeOrdered By: Juan José Weiner on 06-18-2023 ALP [Catalytic activity/Vol] 114 U/L 45-117 [facility] ALT [Catalytic activity/Vol] 42 U/L 13-56 [facility] Globulin (S) [Mass/Vol] 4.4 g/dL 2.2-4.2 [facility] - Hematology and Cell countsOrdered By: Juan José Weiner on 06-18-2023 Erythrocyte distribution width (RBC) [Entitic vol] 49.6 fL 35.1-43.9 [facility] Erythrocyte distribution width (RBC) [Ratio] 13.4 % 11.6-14.6 [facility] MCH (RBC) [Entitic mass] 31.4 pg 27.0-32.0 [facility] MCHC Auto (RBC) [Mass/Vol]Or dered By: Juan José Weiner on 06-18-2023 MCHC (RBC) [Mass/Vol] 31.8 g/dL 32-36 [facility] Platelets bldOrdered By: Sinan Weiner on 06-18-2023 Platelets (Bld) [#/Vol] 338 10*3/uL 150-450 [facility] Serum or plasma C reactive p rotein measurement (mass/volume)Ordered By: Juan José Weiner on 06-18-2023 CRP [Mass/Vol] mg/L 0.0-3.0 [facility] Comment on above: C-Reactive Protein ( CRP) provides useful information for thediagnosis, therapy and monitoring of inflammatory processesand associated diseases. For the evaluation of Relative Riskfor Cardiovascular Disease, a High Sensitivity CRP (HSCRP)should be ordered. Serum or plasma albumin karlo urement (mass/volume)Ordered By: Juan José Weiner on 06-18-2023 Albumin [Mass/Vol] 3.8 g/dL 3.2-5.0 [facility] Thin prep Papanicolaou smear with manual screeningOrdered By: Juan José Weiner on 06-18-2023 Thin prep Papanicolaou smear with manual screening 23 U/L 15-37 [facility] No Panel InformationOrdered By: Juan José Weiner on 06-06-2023 Miscellaneous Test See comment [facility] Comment on above: Scanned image report available in EMR Final Surgical Pathology Rep [email or web address] 05-13-2023 Final Surgical Pathology Report . Pathology Reports Accession: Collected Date/Time: Received Date/Time: Pathologist: [id number] 05/09/2023 12:12 EDT 05/12/2023 07:53 EDT ADONIS [...] All parts labelled with patient name and [id number] A. Received in formalin labeled ascending colon [...] fragments may not survive processing. TS-1 Kirstie Beauileu, Grossing Vp Training/ Dr. Orlando Crouch, Pathologist Dictated by Kirstie Beaulieu MICROSCOPIC DESCRIPTION: The microscopic examination is performed, except in the case of Gross Only. Electronically Signed by Pathology Report verified by [facility] ADONIS ROBBINS Sign out Date: 05/13/2023 09:48 Performing Lab: [facility], [address] [place] [address] Pathology Dept Disclaimer If ancillary studies were utilized, the following Laboratory Developed Test (LDT) disclaimer will apply: Under CLIA requirements, [facility] Pathology Laboratory is qualified to perform high complexity testing. For all ancillary stains, positive and negative controls stain Pathology Reports Accession: Collected Date/Time: Received Date/Time: Pathologist: [id number] 05/09/2023 12:12 EDT 05/12/2023 07:53 EDT ADONIS ROBBINS MD Disclaimer appropriately. Performance characteristics of immunohistochemical and chromogenic in-situ hybridization tests have been determined by [facility] Pathology Laboratory. These tests are used for clinical purposes, They should not be regarded as investigational or for research. Normal [facility] ([place]) No Panel InformationOrdered By: Juan José Weiner on 04-23-2023 Stool Calprotectin 256 ug/g 0-120 [facility] Comment on above: Concentration Interp retation Follow-Up< 5 - 50 ug/g Normal None>50 -120 ug/g Borderline Re-evaluate in 4-6 weeks >120 ug/g Abnormal Repeat as clinically indicatedPerformed at: [facility] LabIntrallect[address] [id number] Director: Frandy Pitts MD, Phone: [phone] CALCIFEDIOL ([id number])Ordered B y: Die Sizer on 03-04-2023 25-hydroxyvitamin D [Mass/Vol] 66.8 ng/mL Normal 30.0-100.0 [facility]; [facility] Work Phone: Comment on above: Vitamin D deficiency has been defined by the [place] ofMedicine and an Endocrine Society practice guideline as alevel of serum 25-OH vitamin D less than 20 ng/mL (1,2).The Endocrine Society went on to further define vitamin Dinsufficiency as a level between 21 and 29 ng/mL (2).1. IOM ([place] of Medicine). 2010. Dietary reference intakes for calcium and D. [place]: The National Academies Press.2. Krystal MF, [place]yn [place], Troy-Rufino FLEMING, et al. Evaluation, treatment, and prevention of vitamin D deficiency: an Endocrine Society clinical practice guideline. JCEM. 2010; 96(7):1911-30. PATIENT WAS FASTINGP ERFORMED BY: [facility] [address] [id number] CBC W/AUTO DIFF WBC (47560)O rdered By: Die Sizer on 03-04-2023 Basophils (Bld) [#/Vol] 0.1 10*3/uL Normal 0.0-0.2 [facility]; [facility] Work Phone: Comment on above: PATIENT WAS FASTINGP ERFORMED BY: RUBEN [address]aro[address] [place] [id number]; has fu 9-5-23 Basophils/100 WBC (Bld) 1 % Normal [facility]; [facility] Work Phone: Comment on above: PATIENT WAS FASTINGP ERFORMED BY: RUBEN Labmanan Wxuzgi[address] RoadSw[facility] Hospitalin [place] [id number]; has fu 9-- Eosinophils (Bld) [#/Vol] 0.2 10*3/uL Normal 0.0-0.4 [facility]; [facility] Work Phone: Comment on above: PATIENT WAS FASTINGP ERFORMED BY: RUBEN Andrew Lylvsm[address] RoadSwain Community Hospitalin [place] [id number]; has fu 9--23 Eosinophils/100 WBC (Bld) 3 % Normal [facility]; [facility] Work Phone: Comment on above: PATIENT WAS FASTINGP ERFORMED BY: RUBEN Trevin[address] [facility] [place] [id number]; has fu 9-23 Erythrocyte distribution width (RBC) [Ratio] 12.9 % Normal 11.7-15.4 [facility]; [facility] Work Phone: Comment on above: PATIENT WAS FASTINGP ERFORMED BY: RUBEN Lab[facility] [address] [facility] [place] [id number]; has fu 9-- Hematocrit (Bld) [Volume fraction] 41.1 % Normal 34.0-46.6 [facility]; [facility] Work Phone: Comment on above: PATIENT WAS FASTINGP ERFORMED BY: RUBEN Labco Ufvtpw[address] RoadSwain Community Hospitalin [place] [id number]; has fu 9--23 Hemoglobin (Bld) [Mass/Vol] 13.8 g/dL Normal 11.1-15.9 [facility]; [facility] Work Phone: Comment on above: PATIENT WAS FASTINGP ERFORMED BY: RUBEN [address] [facility] [place] [id number]; has fu 9-5-23 Immature granulocytes (Bld) [#/Vol] 0.0 10*3/uL Normal 0.0-0.1 [facility]; [facility] Work Phone: Comment on above: PATIENT WAS FASTINGP ERFORMED BY: RUBEN Trevin[address] [facility] [place] [id number]; has fu 9-5-23 Immature granulocytes/100 WBC (Bld) 0 % Normal [facility]; [facility] Work Phone: Comment on above: PATIENT WAS FASTINGP ERFORMED BY: RUBEN Angy [address] [facility] [id number]; has fu 9-5-23 Lymphocytes (Bld) [#/Vol] 1.5 10*3/uL Normal 0.7-3.1 [facility]; [facility] Work Phone: Comment on above: PATIENT WAS FASTINGP ERFORMED BY: RUBEN [address] [facility] [id number]; has fu 9-5-23 Lymphocytes/100 WBC (Bld) 20 % Normal [facility]; [facility] Work Phone: Comment on above: PATIENT WAS FASTINGP ERFORMED BY: RUBEN [address] [facility] [id number]; has fu 9-5-23 MCH (RBC) [Entitic mass] 31.7 pg Normal 26.6-33.0 [facility]; [facility] Work Phone: Comment on above: PATIENT WAS FASTINGP ERFORMED BY: RUBEN [address] [facility] [id number]; has fu 9-5-23 MCHC (RBC) [Mass/Vol] 33.6 g/dL Normal 31.5-35.7 [facility]; [facility] Work Phone: Comment on above: PATIENT WAS FASTINGP ERFORMED BY: RUBEN Amaro[address] [place] [id number]; has fu 9-5-23 MCV (RBC) [Entitic vol] 94 fL Normal 79-97 [facility]; [facility] Work Phone: Comment on above: PATIENT WAS FASTINGP ERFORMED BY: RUBEN Angy Am[address] [place] [id number]; has fu 9-5-23 Monocytes (Bld) [#/Vol] 0.6 10*3/uL Normal 0.1-0.9 [facility]; [facility] Internal Medicine Work Phone: Comment on above: PATIENT WAS FASTINGP ERFORMED BY: RUBEN Angy Amaro[address] RoadDublin [place] [id number]; has fu 9-5-23 Monocytes/100 WBC (Bld) 8 % Normal [facility]; [facility] Work Phone: Comment on above: PATIENT WAS FASTINGP ERFORMED BY: RUBEN Angy Amaro[address]Dublin [place] [id number]; has fu 9-5-23 Neutrophils (Bld) [#/Vol] 5.0 10*3/uL Normal 1.4-7.0 [facility]; [facility] Work Phone: Comment on above: PATIENT WAS FASTINGP ERFORMED BY: RUBEN Angy Amaro[address]Dublin [place] [id number]; has fu 9-5-23 Neutrophils/100 WBC (Bld) 68 % Normal [facility]; [facility] Work Phone: Comment on above: PATIENT WAS FASTINGP ERFORMED BY: RUBEN Trevinolin[address]Dublin [place] [id number]; has fu 9-5-23 Platelets (Bld) [#/Vol] 349 10*3/uL Normal 150-450 [facility]; [facility] Work Phone: Comment on above: PATIENT WAS FASTINGP ERFORMED BY: RUBEN [facility] Btcyja0842 [address] RoadDublin [place] [id number]; has fu 9-- RBC (Bld) [#/Vol] 4.36 10*6/uL Normal 3.77-5.28 Compr [facility] Internal Medicine; [facility] Work Phone: Comment on above: PATIENT WAS FASTINGP ERFORMED BY: RUBEN [facility] Tlxcnb6786 [address] RoadDublin [place] [id number]; has fu 9-- WBC (Bld) [#/Vol] 7.4 10*3/uL Normal 3.4-10.8 Compre [facility] Internal Medicine; [facility] Work Phone: Comment on above: PATIENT WAS FASTINGP ERFORMED BY: RUBEN [facility] Nqlyrn2775 [address] RoadDublin [place] [id number]; has fu -12-03 HEPATIC FUNCTION PANEL ([id number] [id number])Ordered By: Die Sizer on 03-04-2023 Bilirubin.direct [Mass/Vol] 0.13 mg/dL Normal 0.00-0.40 [facility]; [facility] Work Phone: Comment on above: do December 2022; LUZMA SNATANAJEANA WAS FASTINGPERFORMED BY: RUBEN [facility] Rizloh3[address] RoadDublin [place] [id number] LIPID PANEL ([id number])Ordered B y: Die Sizer on 03-04-2023 Cholesterol [Mass/Vol] 210 mg/dL Abnormal 100-199 [facility]; [facility] Work Phone: Comment on above: do in mid december 2022; PATIENT WAS FASTINGPERFORMED BY: RUBEN [facility] Pkyauw95[address] RoadDublin [place] [id number] Cholesterol in HDL [Mass/Vol] 68 mg/dL Normal [facility]; [facility] Work Phone: Comment on above: do in December 2022; PATIENT WAS FASTINGPERFORMED BY: RUBEN [facility] Sunopn5[address] RoadDublin [place] [id number] Triglyceride [Mass/Vol] 123 mg/dL Normal 0-149 [facility]; [facility] Work Phone: Comment on above: do in December 2022; PATIENT WAS FASTINGPERFORMED BY: RUBEN [facility] Hgeepu5627 [address] RoadDublin [place] [id number] LIPID PANEL ([id number]) 22 mg/dL Normal 5-40 [facility]; [facility] Work Phone: Comment on above: do in December 2022; PATIENT WAS FASTINGPERFORMED BY: RUBEN [facility] Yhrggt9881 [address] Roadblin [place] [id number] LIPID PANEL (48111) 120 mg/dL Abnormal 0-99 [facility]; [facility] Work Phone: Comment on above: do in December 2022; PATIENT WAS FASTINGPERFORMED BY: RUBEN [facility] TrevinoOebjme6455 [address] Roadblin [place] [id number] LIPID PANEL (40779) 1.8 {ratio} Normal 0.0-3.2 [facility] Internal Medicine; [facility] Work Phone: Comment on above: LDL/HDL Ratio Men Wo men 1/2 Avg.Risk 1.0 1.5 Avg.Risk 3.6 3.2 2X Avg.Risk 6.2 5.0 3X Avg.Risk 8.0 6.1 do in December 2022; PATIENT WAS FASTINGPERFORMED BY: RUBEN [facility] Odulbr[address] [facility], [place] [id number] METABOLIC PANEL, COMPREHENSI VE ([id number])Ordered By: Die Sizer on 03-04-2023 Albumin [Mass/Vol] 4.8 g/dL Normal 3.8-4.9 [facility] Internal Medicine; [facility] Work Phone: Comment on above: PATIENT WAS FASTINGP ERFORMED BY: RUBEN [facility] Bupyki[address] [facility] JacksonD[place] [id number] Albumin/Globulin [Mass ratio] 1.7 {ratio} Normal 1.2-2.2 [facility] Internal Medicine; [facility] Work Phone: Comment on above: PATIENT WAS FASTINGP ERFORMED BY: RUBEN [facility] [address]cr[address] [facility] [place] [id number] ALP [Catalytic activity/Vol] 139 U/L Abnormal 44-121 [facility]; [facility] Work Phone: Comment on above: PATIENT WAS FASTINGP ERFORMED BY: CB [facility] Lrwfmm3865 [address] RoadDublin [place] [id number] ALT [Catalytic activity/Vol] 26 U/L Normal 0-32 [facility]; [facility] Work Phone: Comment on above: PATIENT WAS FASTINGP ERFORMED BY: CB [facility] Sjgpvx6943 [address] RoadDublin [place] [id number] AST [Catalytic activity/Vol] 23 U/L Normal 0-40 [facility]; [facility] Work Phone: Comment on above: PATIENT WAS FASTINGP ERFORMED BY: CB [facility] Fhaezr5[address] RoadDublin [place] [id number] Bilirubin [Mass/Vol] 0.5 mg/dL Normal 0.0-1.2 Comp rehensive Internal Medicine; [facility] Work Phone: Comment on above: PATIENT WAS FASTINGP ERFORMED BY: CB [facility] Rwzytx9029 [address] RoadDublin [place] [id number] Calcium [Mass/Vol] 10.2 mg/dL Normal 8.7-10.2 [facility] Internal Medicine; [facility] Work Phone: Comment on above: PATIENT WAS FASTINGP ERFORMED BY: CB [facility] Ffmeqc9414 [address] RoadDublin [place] [id number] Chloride [Moles/Vol] 97 mmol/L Normal 96-106 Comp [facility]; [facility] Work Phone: Comment on above: PATIENT WAS FASTINGP ERFORMED BY: CB [facility] Oaswms9[address]Dublin [place] [id number] CO2 [Moles/Vol] 27 mmol/L Normal 20-29 [facility] Internal Medicine; [facility] Work Phone: Comment on above: PATIENT WAS FASTINGP ERFORMED BY: CB [facility] Gkgroh4[address] RoadDublin [place] [id number] Creatinine [Mass/Vol] 0.95 mg/dL Normal 0.57-1.00 [facility] prehensive Internal Medicine; [facility] Work Phone: Comment on above: PATIENT WAS FASTINGP ERFORMED BY: RUBEN [facility] Nozcmu8936 [facility] [id number] GFR/1.73 sq M.predicted among non-blacks MDRD (S/P/Bld) [Vol rate/Area] 71 mL/min/{1.73_m2} Normal Comprehensiv e Internal Medicine; [facility] Work Phone: Comment on above: PATIENT WAS FASTINGP ERFORMED BY: Labgeneral [facility] Yherci7538 [facility] [id number] Globulin (S) [Mass/Vol] 2.9 g/dL Normal 1.5-4.5 [facility]; [facility] Work Phone: Comment on above: PATIENT WAS FASTINGP ERFORMED BY: LabHenry [facility]6370 [facility] [id number] Glucose [Mass/Vol] 99 mg/dL Normal 70-99 [facility] hens[facility]; [facility] Work Phone: Comment on above: PATIENT WAS FASTINGP ERFORMED BY: Labgeneral [facility] Ibpjba4227 [facility] [id number] Potassium [Moles/Vol] 4.4 mmol/L Normal 3.5-5.2 [facility] prehensive Internal Medicine; [facility] Work Phone: Comment on above: PATIENT WAS FASTINGP ERFORMED BY: Labgeneral [facility] Znpzgw1068 [facility] [id number] Protein [Mass/Vol] 7.7 g/dL Normal 6.0-8.5 [facility] hens[facility]; [facility] Work Phone: Comment on above: PATIENT WAS FASTINGP ERFORMED BY: Labgeneral [facility] Tysxhi4625 [facility] [id number] Sodium [Moles/Vol] 140 mmol/L Normal 134-144 [facility] hensive [facility]; [facility] Work Phone: Comment on above: PATIENT WAS FASTINGP ERFORMED BY: RUBEN [facility] Hpeevi4[address] RoadDublin [place] [id number] Urea nitrogen [Mass/Vol] 16 mg/dL Normal 6-24 [facility]; [facility] Work Phone: Comment on above: PATIENT WAS FASTINGP ERFORMED BY: RUBEN [facility] Oymict35[address] RoadDublin [place] [id number] Urea nitrogen/Creatinine [Mass ratio] 17 mg/mg Normal 9-23 [facility]; [facility] Work Phone: Comment on above: PATIENT WAS FASTINGP ERFORMED BY: RUBEN [facility] Ydswym1569 [address] RoadDublin [place] [id number] MICROALBUMINOrdered By: Syst em Senior Accountant on 03-04-2023 Albumin DL <= 20 mg/L (U) [Mass/Vol] mg/dL Normal [facility]; [facility] Work Phone: Comment on above: PATIENT WAS FASTINGP ERFORMED BY: RUBEN [facility] Wkvpby4646 [address] RoadDublin [place] [id number] Albumin/Creatinine (U) [Mass ratio] <6 Normal 0-29 [facility]; [facility] Work Phone: Comment on above: Normal: 0 - 29 Moder ately increased: 30 - 300 Severely increased: >300 PATIENT WAS FASTINGP ERFORMED BY: RUBEN [facility] Mmjdvi1925 [address] RoadDublin [place] [id number] Creatinine (U) [Mass/Vol] 52.7 mg/dL Normal [facility]; [facility] Work Phone: Comment on above: PATIENT WAS FASTINGP ERFORMED BY: RUBEN [facility] Yefpib7[address] RoadDublin [place] [id number] TSH ([id number])Ordered By: Letitia m Senior Accountant on 03-04-2023 TSH Qn 2.600 {uIU/mL} Normal 0.450-4.500 [facility] Internal Medicine; [facility] Work Phone: Comment on above: PATIENT WAS FASTINGP ERFORMED BY: RUBEN [facility] Wovold7[address] RoadDublin [place] [id number] URINALYSIS, W/ MICRO ([id number]) Ordered By: Die Sizer on 03-04-2023 Appearance (U) Clear Normal Comprehens иван Internal Medicine; [facility] Work Phone: Comment on above: PATIENT WAS FASTINGP ERFORMED BY: RUBEN Angy Trevinolin[address]Dublin [place] [id number] Bilirubin Ql (U) Negative Normal Comprehe nsive Internal Medicine; [facility] Work Phone: Comment on above: PATIENT WAS FASTINGP ERFORMED BY: RUBEN [facility] TrevinoBgmchw5882 [address] RoadDublin [place] [id number] Color (U) Yellow Normal [facility]; [facility] Work Phone: Comment on above: PATIENT WAS FASTINGP ERFORMED BY: RUBEN Labmananhiro Lwhmvj9467 [address] RoadDublin [place] [id number] Glucose Ql (U) Negative Normal Comprehens иван Internal Medicine; [facility] Work Phone: Comment on above: PATIENT WAS FASTINGP ERFORMED BY: RUBEN [facility] TrevinoZpjknx3882 [address] RoadDublin [place] [id number] Hemoglobin Ql (U) Negative Normal Compreh ensive Internal Medicine; [facility] Work Phone: Comment on above: PATIENT WAS FASTINGP ERFORMED BY: RUBEN Lorriehiro TrevinoQggtqw3889 [address] RoadDublin [place] [id number] Ketones Ql (U) Negative Normal Comprehens иван Internal Medicine; [facility] Work Phone: Comment on above: PATIENT WAS FASTINGP ERFORMED BY: RUBEN [facility] TrevinoWbgpdv5046 [address] RoadDublin [place] [id number] Leukocyte esterase Test strip Ql (U) Negative Normal [facility]; [facility] Work Phone: Comment on above: PATIENT WAS FASTINGP ERFORMED BY: RUBEN Melodyparker Iltpsj0955 [address] RoadDublin [place] [id number] Microscopic observation LM Nom (Urine sed) MICRON Normal [facility]; [facility] Work Phone: Comment on above: Microscopic follows if indicated. PATIENT WAS FASTINGP ERFORMED BY: RUBEN [address]aro[address] [facility]bl[facility] [place] [id number] Microscopic observation LM Nom (Urine sed) See below: Normal [facility]; [facility] Work Phone: Comment on above: Microscopic was evita cated and was performed. PATIENT WAS FASTINGP ERFORMED BY: RUBEN Angy Amaro[address] [facility]in [place] [id number] Nitrite Ql (U) Negative Normal Comprehens иван Internal Medicine; [facility] Work Phone: Comment on above: PATIENT WAS FASTINGP ERFORMED BY: RUBEN Angy Amaro[address] [facility]in [place] [id number] pH (U) 7.0 [pH] Normal 5.0-7.5 [facility]; [facility] Work Phone: Comment on above: PATIENT WAS FASTINGP ERFORMED BY: RUBEN Lorrie Ifkwsg[address] [facility]in [place] [id number] Protein Ql (U) Negative Normal Comprehens иван Internal Medicine; [facility] Work Phone: Comment on above: PATIENT WAS FASTINGP ERFORMED BY: RUBEN Angy Amaro6370 [facility]in [place] [id number] Specific gravity (U) [Rel density] 1.010 1 Normal 1.005-1.030 [facility]; [facility] Work Phone: Comment on above: PATIENT WAS FASTINGP ERFORMED BY: RUBEN Andrew Kpsdvx[address] [facility]in [place] [id number] Urobilinogen (U) [Mass/Vol] 0.2 mg/dL Normal 0.2-1.0 [facility]; [facility] Work Phone: Comment on above: PATIENT WAS FASTINGP ERFORMED BY: RUBEN Andrew Cejsyw[address] [facility] JacksonD[facility] [place] [id number] LIPID PANEL ([id number])Ordered B y: Die Sizer on 10-24-2022 Cholesterol [Mass/Vol] 247 mg/dL Abnormal 100-199 [facility]; [facility] Work Phone: Comment on above: PATIENT WAS FASTINGP ERFORMED BY: RUBEN Labcohiro TrevinoFvylmy[address] [facility]in [place] [id number] Cholesterol in HDL [Mass/Vol] 66 mg/dL Normal [facility]; [facility] Work Phone: Comment on above: PATIENT WAS FASTINGP ERFORMED BY: RUBEN Labcohiro Kpgcms[address] [facility] [place] [id number] Triglyceride [Mass/Vol] 103 mg/dL Normal 0-149 [facility]; [facility] Work Phone: Comment on above: PATIENT WAS FASTINGP ERFORMED BY: RUBEN Labcohiro TrevinoFkuoci[address] [facility] [place] [id number] LIPID PANEL (75573) 18 mg/dL Normal 5-40 Compr ensive Internal Medicine; [facility] Work Phone: Comment on above: PATIENT WAS FASTINGP ERFORMED BY: RUBEN Lab[facility] TrevinoYdvujc1922 [facility] [id number] LIPID PANEL (66219) 163 mg/dL Abnormal 0-99 Compr ensive Internal Medicine; [facility] Work Phone: Comment on above: PATIENT WAS FASTINGP ERFORMED BY: RUBEN Labparker TrevinoJxlssc1650 [facility] [id number] LIPID PANEL (58956) 2.5 {ratio} Normal 0.0-3.2 Comp [facility]ensive [facility]; [facility] Work Phone: Comment on above: LDL/HDL Ratio Men Wo men 1/2 Avg.Risk 1.0 1.5 Avg.Risk 3.6 3.2 2X Avg.Risk 6.2 5.0 3X Avg.Risk 8.0 6.1 PATIENT WAS FASTINGP ERFORMED BY: RUBEN [facility] Ffwloz3938 [facility]in [place] [id number] LIPID PANEL (57661)Ordered B y: Die Sizer on 07-11-2022 Cholesterol [Mass/Vol] 243 mg/dL Abnormal 100-199 [facility]; [facility] Work Phone: Comment on above: PATIENT WAS FASTINGP ERFORMED BY: RUBEN [facility] Jpurby13[address] RoadDublin [place] [id number] Cholesterol in HDL [Mass/Vol] 70 mg/dL Normal [facility]; [facility] Work Phone: Comment on above: PATIENT WAS FASTINGP ERFORMED BY: RUBEN [facility] Ljsgsg7[address] RoadDublin [place] [id number] Triglyceride [Mass/Vol] 98 mg/dL Normal 0-149 [facility]; [facility] Work Phone: Comment on above: PATIENT WAS FASTINGP ERFORMED BY: RUBEN [facility] Ulvkdg2652 [address] RoadDublin [place] [id number] LIPID PANEL (19698) 17 mg/dL Normal 5-40 [facility]; [facility] Work Phone: Comment on above: PATIENT WAS FASTINGP ERFORMED BY: RUBEN Labcohiro TrevinoDdjvlj5354 [address] RoadDublin [place] [id number] LIPID PANEL (72272) 156 mg/dL Abnormal 0-99 [facility]; [facility] Work Phone: Comment on above: PATIENT WAS FASTINGP ERFORMED BY: RUBEN [facility] Qailjg7102 [address] RoadDublin [place] [id number] LIPID PANEL (61436) 2.2 {ratio} Normal 0.0-3.2 [facility]; [facility] Work Phone: Comment on above: LDL/HDL Ratio Men Wo men 1/2 Avg.Risk 1.0 1.5 Avg.Risk 3.6 3.2 2X Avg.Risk 6.2 5.0 3X Avg.Risk 8.0 6.1 PATIENT WAS FASTINGP ERFORMED BY: RUBEN [facility] Srztlt6354 [address] RoadDublin [place] [id number] Metabolic Panel, Basic ([id number])Ordered By: Die Sizer on 07-11-2022 Calcium [Mass/Vol] 9.9 mg/dL Normal 8.7-10.2 [facility] Internal Medicine; [facility] Work Phone: Comment on above: PATIENT WAS FASTINGP ERFORMED BY: RUBEN [facility] Klbtfi2475 [address] RoadDublin [place] [id number] Chloride [Moles/Vol] 98 mmol/L Normal 96-106 [facility] rehensive Internal Medicine; [facility] Work Phone: Comment on above: PATIENT WAS FASTINGP ERFORMED BY: RUBEN [facility] Qfksml8304 [address] RoadDublin [place] [id number] CO2 [Moles/Vol] 25 mmol/L Normal 20-29 Comprehen [facility]; [facility] Work Phone: Comment on above: PATIENT WAS FASTINGP ERFORMED BY: RUBEN [facility] Bdhhbb2985 [address] Roadblin [place] [id number] Creatinine [Mass/Vol] 0.86 mg/dL Normal 0.57-1.00 [facility] prehensive Internal Medicine; [facility] Work Phone: Comment on above: PATIENT WAS FASTINGP ERFORMED BY: RUBEN [facility] Hpjdbr4346 [address]la RoadNovant Health [facility] [id number] GFR/1.73 sq M.predicted among non-blacks MDRD (S/P/Bld) [Vol rate/Area] 80 mL/min/{1.73_m2} Normal Comprehensiv e Internal Medicine; [facility] Work Phone: Comment on above: PATIENT WAS FASTINGP ERFORMED BY: RUBEN [facility] Zanntm[address] [facility]in [place] [id number] Glucose [Mass/Vol] 87 mg/dL Normal 70-99 [facility] Internal Medicine; [facility] Work Phone: Comment on above: PATIENT WAS FASTINGP ERFORMED BY: RUBEN [facility] Dnzzku5642 [address] RoadDublin [place] [id number] Potassium [Moles/Vol] 4.3 mmol/L Normal 3.5-5.2 [facility] prehensive Internal Medicine; [facility] Work Phone: Comment on above: PATIENT WAS FASTINGP ERFORMED BY: RUBEN [facility] Xesush8519 [address] RoadDublin [place] [id number] Sodium [Moles/Vol] 138 mmol/L Normal 134-144 Compre [facility] Internal Medicine; [facility] Work Phone: Comment on above: PATIENT WAS FASTINGP ERFORMED BY: Caixin Mediageneral [facility] Pagwxy6081 [facility] [id number] Urea nitrogen [Mass/Vol] 16 mg/dL Normal 6-24 [facility]; [facility] Work Phone: Comment on above: PATIENT WAS FASTINGP ERFORMED BY: Caixin Mediageneral [facility] Hmrrlj5350 [facility] [id number] Urea nitrogen/Creatinine [Mass ratio] 19 mg/mg Normal 9-23 [facility]; [facility] Work Phone: Comment on above: PATIENT WAS FASTINGP ERFORMED BY: Caixin Mediageneral [facility] Nffeih1474 [place] Caro NutNovant Health [facility] Orth[facility] [id number] Cervical or vagninal specime n microscopic examination by cytology stain (reported ason 04-22-2022 Cytology report Cyto stain Doc (Cvx/Vag) Comment . [facility] Work Phone: Comment on above: The [...] DNA Probe+sig amp Ql (Cvx) Negative Negative [facility] Work Phone: Comment on above: This nucleic acid am plification test detects fourteen high- risk HPV types (16,18,31,33,35,39,45,51,52,56,58,59,66,68)without differentiation.Performed at: [address] [id number] Director: Bess Cross MD, Phone: [phone] at: =[facility] [address] [place] [id number] Director: Bess Cross MD, Phone: [phone] Laboratory - Cytologyon 04-13 C Programmer Cyto stain Nom (Cvx/Vag) [ID] Comment . [facility] Work Phone: Comment on above: Gino Tenorio, Cytotec hnologist (ASCP) Recommended follow-up Cyto stain Nom (Cvx/Vag) Comment . [facility] Work Phone: Comment on above: Suggest follow up as clinically appropriate. Laboratory - Miscellaneous t estson 04-22-2022 Service comment (Unsp spec) [Interp] TNP [facility] Work Phone: Comment on above: Test not performedTh e Thin Prep(R) Broadcast Transmitter Operator was unable to read this specimen.Therefore a manual review was performed. Service comment (Unsp spec) [Interp] . . [facility] Work Phone: No Panel Informationon 04-22 Pap Smear QC Review Comment . [facility] Work Phone: Comment on above: Yessi Watson, Cyto technologist Pap Smear Specimen Adequacy Comment . [facility] Work Phone: Comment on above: Specimen processed a nd examined but unsatisfactory for evaluation ofepithelial abnormality because of insufficient cellularity. Pathology report final diagnosis Narrative Comment . [facility] Work Phone: Comment on above: UNSATISFACTORY FOR E VALUATION. CALCIFIDIOL ([id number]) VIT D 25 Ordered By: Die Sizer on 01-11-2022 25-hydroxyvitamin D [Mass/Vol] 61.1 ng/mL Normal 30.0-100.0 [facility]; [facility] Work Phone: Comment on above: Vitamin D deficiency has been defined by the [place] ofMedicine and an Endocrine Society practice guideline as alevel of serum 25-OH vitamin D less than 20 ng/mL (1,2).The Endocrine Society went on to further define vitamin Dinsufficiency as a level between 21 and 29 ng/mL (2).1. IOM ([place] of Medicine). 2010. Dietary reference intakes for calcium and D. [place]: The National Academies Press.2. Krystal MF, Ashtyn NC, Cassandra FLEMING, et al. Evaluation, treatment, and prevention of vitamin D deficiency: an Endocrine Society clinical practice guideline. JCEM. 2010; 96(7):1911-30. PATIENT WAS FASTINGP ERFORMED BY: [facility] Mpexbe6499 [address] RoadDublin [place] [id number] CBC W/AUTO DIFF WBC ([id number])O rdered By: Die Sizer on 01-11-2022 Basophils (Bld) [#/Vol] 0.0 10*3/uL Normal 0.0-0.2 [facility]; [facility] Work Phone: Comment on above: PATIENT WAS FASTINGP ERFORMED BY: [facility] Gtmkiu8005 [address] RoadDublin [place] [id number] Basophils/100 WBC (Bld) 1 % Normal [facility]; [facility] Work Phone: Comment on above: PATIENT WAS FASTINGP ERFORMED BY: [facility] Rbxgbf4586 [address] RoadDublin [place] [id number] Eosinophils (Bld) [#/Vol] 0.3 10*3/uL Normal 0.0-0.4 [facility]; [facility] Work Phone: Comment on above: PATIENT WAS FASTINGP ERFORMED BY: [facility] Qlehml5593 [address] RoadDublin [place] [id number] Eosinophils/100 WBC (Bld) 4 % Normal [facility]; [facility] Work Phone: Comment on above: PATIENT WAS FASTINGP ERFORMED BY: velingo [facility] Donsst3501 [address] RoadDublin [place] [id number] Erythrocyte distribution width (RBC) [Ratio] 13.0 % Normal 11.7-15.4 [facility]; [facility] Work Phone: Comment on above: PATIENT WAS FASTINGP ERFORMED BY: [facility] Nwziwx7340 [address] RoadDublin [place] [id number] Hematocrit (Bld) [Volume fraction] 36.5 % Normal 34.0-46.6 [facility]; [facility] Work Phone: Comment on above: PATIENT WAS FASTINGP ERFORMED BY: RUBEN Amaro[address] [facility] [place] [id number] Hemoglobin (Bld) [Mass/Vol] 12.1 g/dL Normal 11.1-15.9 [facility]; [facility] Work Phone: Comment on above: PATIENT WAS FASTINGP ERFORMED BY: Labgeneral [facility] Hwprvh7218 [address] [facility]in [place] [id number] Immature granulocytes (Bld) [#/Vol] 0.0 10*3/uL Normal 0.0-0.1 [facility]; [facility] Work Phone: Comment on above: PATIENT WAS FASTINGP ERFORMED BY: Melodygeneral [facility] Pbsbrz3991 [address] RoadNov[facility] [id number] Immature granulocytes/100 WBC (Bld) 0 % Normal [facility]; [facility] Work Phone: Comment on above: PATIENT WAS FASTINGP ERFORMED BY: Labgeneral [facility] Kekapm6789 [address] [facility]in [place] [id number] Lymphocytes (Bld) [#/Vol] 1.9 10*3/uL Normal 0.7-3.1 [facility]; [facility] Work Phone: Comment on above: PATIENT WAS FASTINGP ERFORMED BY: [facility]Henry [facility]6370 [address] [facility] [id number] Lymphocytes/100 WBC (Bld) 30 % Normal [facility]; [facility] Work Phone: Comment on above: PATIENT WAS FASTINGP ERFORMED BY: Labco Uprbja[address] [facility] [place] [id number] MCH (RBC) [Entitic mass] 31.7 pg Normal 26.6-33.0 [facility]; [facility] Work Phone: Comment on above: PATIENT WAS FASTINGP ERFORMED BY: Labgeneral [facility] Jvljan7769 [address] [facility] [id number] MCHC (RBC) [Mass/Vol] 33.2 g/dL Normal 31.5-35.7 [facility] prehensive Internal Medicine; [facility] Work Phone: Comment on above: PATIENT WAS FASTINGP ERFORMED BY: RUBEN Melodycohiro AmaroRlgywr2493 [address] RoadFishblin [place] [id number] MCV (RBC) [Entitic vol] 96 fL Normal 79-97 [facility]; [facility] Work Phone: Comment on above: PATIENT WAS FASTINGP ERFORMED BY: RUBEN [facility] Guwxvn9115 [address] [facility] [id number] Monocytes (Bld) [#/Vol] 0.5 10*3/uL Normal 0.1-0.9 [facility]; [facility] Work Phone: Comment on above: PATIENT WAS FASTINGP ERFORMED BY: RUBEN Labcohiro TrevinoEolrqg4912 [address] [facility] [id number] Monocytes/100 WBC (Bld) 8 % Normal [facility]; [facility] Work Phone: Comment on above: PATIENT WAS FASTINGP ERFORMED BY: RUBEN Labcohiro Tokptq7316 [address] [facility]in [place] [id number] Neutrophils (Bld) [#/Vol] 3.7 10*3/uL Normal 1.4-7.0 [facility]; [facility] Work Phone: Comment on above: PATIENT WAS FASTINGP ERFORMED BY: RUBEN [facility] Hcxvdq8271 [address] RoadNovant Health [facility] [id number] Neutrophils/100 WBC (Bld) 57 % Normal [facility]; [facility] Work Phone: Comment on above: PATIENT WAS FASTINGP ERFORMED BY: RUBEN [facility] Crwpwe[address] [facility]bl[facility] [place] [id number] Platelets (Bld) [#/Vol] 307 10*3/uL Normal 150-450 [facility]; [facility] Work Phone: Comment on above: PATIENT WAS FASTINGP ERFORMED BY: RUBEN [facility] Fzpwab5887 [address] [facility]in [place] [id number] RBC (Bld) [#/Vol] 3.82 10*6/uL Normal 3.77-5.28 [facility]; [facility] Work Phone: Comment on above: PATIENT WAS FASTINGP ERFORMED BY: RUBEN [facility] Uqiddw3463 [address] RoadDublin [place] [id number] WBC (Bld) [#/Vol] 6.5 10*3/uL Normal 3.4-10.8 [facility]; [facility] Work Phone: Comment on above: PATIENT WAS FASTINGP ERFORMED BY: RUBEN [facility] Tyxkfc3890 [address] Roadblin [place] [id number] LIPID PANEL ([id number])Ordered B y: Die Sizer on 01-11-2022 Cholesterol [Mass/Vol] 221 mg/dL Abnormal 100-199 [facility]; [facility] Work Phone: Comment on above: PATIENT WAS FASTINGP ERFORMED BY: Labmanan Jqcvet[address] [facility] Hospitalbl[facility] [place] [id number] Cholesterol in HDL [Mass/Vol] 66 mg/dL Normal [facility]; [facility] Work Phone: Comment on above: PATIENT WAS FASTINGP ERFORMED BY: Labmanan Vazfvo[address] [facility] Hospitalbl[facility] [place] [id number] Triglyceride [Mass/Vol] 122 mg/dL Normal 0-149 [facility]; [facility] Work Phone: Comment on above: PATIENT WAS FASTINGP ERFORMED BY: [facility] Taqlwa4244 [address] RoadDublin [place] [id number] LIPID PANEL (72559) 21 mg/dL Normal 5-40 [facility]; [facility] Work Phone: Comment on above: PATIENT WAS FASTINGP ERFORMED BY: [facility] Plogqq0161 [address] RoadDublin [place] [id number] LIPID PANEL (54719) 134 mg/dL Abnormal 0-99 [facility]; [facility] Work Phone: Comment on above: PATIENT WAS FASTINGP ERFORMED BY: CB [facility] Gznrds5588 [address] RoadDublin [place] [id number] LIPID PANEL (89760) 2.0 {ratio} Normal 0.0-3.2 [facility] Internal Medicine; [facility] Work Phone: Comment on above: LDL/HDL Ratio Men Wo men 1/2 Avg.Risk 1.0 1.5 Avg.Risk 3.6 3.2 2X Avg.Risk 6.2 5.0 3X Avg.Risk 8.0 6.1 PATIENT WAS FASTINGP ERFORMED BY: CB [facility] Xnpzrn9330 [address] RoadDublin [place] [id number] METABOLIC PANEL, COMPREHENSI VE (82597)Ordered By: Die Sizer on 01-11-2022 Albumin [Mass/Vol] 4.3 g/dL Normal 3.8-4.9 [facility] Internal Medicine; [facility] Work Phone: Comment on above: PATIENT WAS FASTINGP ERFORMED BY: CB [facility] Sgnnsd1360 [address] RoadDublin [place] [id number] Albumin/Globulin [Mass ratio] 1.7 {ratio} Normal 1.2-2.2 [facility]; [facility] Work Phone: Comment on above: PATIENT WAS FASTINGP ERFORMED BY: CB [facility] Zdwowg4007 [address] RoadDublin [place] [id number] ALP [Catalytic activity/Vol] 102 U/L Normal 44-121 [facility]; [facility] Work Phone: Comment on above: PATIENT WAS FASTINGP ERFORMED BY: CB [facility] Kbhybl3435 [address] RoadDublin [place] [id number] ALT [Catalytic activity/Vol] 16 U/L Normal 0-32 [facility]; [facility] Work Phone: Comment on above: PATIENT WAS FASTINGP ERFORMED BY: CB [facility] Ewbare5133 [address] RoadDublin [place] [id number] AST [Catalytic activity/Vol] 17 U/L Normal 0-40 [facility]; [facility] Work Phone: Comment on above: PATIENT WAS FASTINGP ERFORMED BY: CB [facility] Iempfb4952 [address] RoadDublin [place] [id number] Bilirubin [Mass/Vol] 0.2 mg/dL Normal 0.0-1.2 Comp rehensive Internal Medicine; [facility] Work Phone: Comment on above: PATIENT WAS FASTINGP ERFORMED BY: CB [facility] Qedffi4656 [address] RoadDublin [place] [id number] Calcium [Mass/Vol] 9.5 mg/dL Normal 8.7-10.2 [facility]; [facility] Work Phone: Comment on above: PATIENT WAS FASTINGP ERFORMED BY: CB [facility] Ebtnmj5634 [address] RoadDublin [place] [id number] Chloride [Moles/Vol] 102 mmol/L Normal 96-106 Comp rehensive Internal Medicine; [facility] Work Phone: Comment on above: PATIENT WAS FASTINGP ERFORMED BY: CB [facility] Kuhsve3454 [address] RoadDublin [place] [id number] CO2 [Moles/Vol] 27 mmol/L Normal 20-29 Comprehen [facility] Internal [facility]; [facility] Work Phone: Comment on above: PATIENT WAS FASTINGP ERFORMED BY: CB [facility] Wftbff4995 [address] RoadDublin [place] [id number] Creatinine [Mass/Vol] 0.97 mg/dL Normal 0.57-1.00 [facility] prehensive Internal Medicine; [facility] Work Phone: Comment on above: PATIENT WAS FASTINGP ERFORMED BY: CB [facility] Unhtad3407 [address] RoadDublin [place] [id number] GFR/1.73 sq M.predicted among non-blacks MDRD (S/P/Bld) [Vol rate/Area] 70 mL/min/{1.73_m2} Normal Comprehensiv e Internal Medicine; [facility] Work Phone: Comment on above: PATIENT WAS FASTINGP ERFORMED BY: CB [facility] Tujstv6978 [address] RoadDublin [place] [id number] Globulin (S) [Mass/Vol] 2.5 g/dL Normal 1.5-4.5 [facility] Internal Medicine; [facility] Work Phone: Comment on above: PATIENT WAS FASTINGP ERFORMED BY: RUBEN Labparker Amaro6370 [address] RoadDublin [place] [id number] Glucose [Mass/Vol] 97 mg/dL Normal 65-99 [facility] Internal Medicine; [facility] Work Phone: Comment on above: PATIENT WAS FASTINGP ERFORMED BY: RUBEN [facility] Jtmqbr5334 [address] [facility], [place] [id number] Potassium [Moles/Vol] 4.4 mmol/L Normal 3.5-5.2 [facility] Internal Medicine; [facility] Work Phone: Comment on above: PATIENT WAS FASTINGP ERFORMED BY: RUBEN Melodygeneral [facility] Gyohgl6474 [address] [facility], [place] [id number] Protein [Mass/Vol] 6.8 g/dL Normal 6.0-8.5 [facility] Internal Medicine; [facility] Work Phone: Comment on above: PATIENT WAS FASTINGP ERFORMED BY: RUBEN [facility] Nnxlcr3582 [address] [facility]in [place] [id number] Sodium [Moles/Vol] 143 mmol/L Normal 134-144 [facility] Internal Medicine; [facility] Work Phone: Comment on above: PATIENT WAS FASTINGP ERFORMED BY: [facility] Mmffkz7419 [address] [facility] [id number] Urea nitrogen [Mass/Vol] 22 mg/dL Normal 6-24 [facility] Internal Medicine; [facility] Work Phone: Comment on above: PATIENT WAS FASTINGP ERFORMED BY: RUBEN [facility] Cwyhhe[address] [facility]bl[facility] [place] [id number] Urea nitrogen/Creatinine [Mass ratio] 23 mg/mg Normal 9-23 [facility]; [facility] Work Phone: Comment on above: PATIENT WAS FASTINGP ERFORMED BY: RUBEN [facility] Cbvsqm3378 [address] RoadDublin [place] [id number] MICROALBUMINOrdered By: Wiren Board em Senior Accountant on 01-11-2022 Albumin DL <= 20 mg/L (U) [Mass/Vol] 5.8 ug/mL Normal [facility]; [facility] Work Phone: Comment on above: PATIENT WAS FASTINGP ERFORMED BY: RUBEN Labcohiro TrevinoLzemls5928 [address] RoadDublin [place] [id number] Albumin/Creatinine (U) [Mass ratio] 10 {mg/g_creat} Normal 0-29 [facility]; [facility] Work Phone: Comment on above: Normal: 0 - 29 Moder ately increased: 30 - 300 Severely increased: >300 PATIENT WAS FASTINGP ERFORMED BY: RUBEN Labparker TrevinoScxgxy2432 [address] RoadDublin [place] [id number] Creatinine (U) [Mass/Vol] 59.3 mg/dL Normal [facility]; [facility] Work Phone: Comment on above: PATIENT WAS FASTINGP ERFORMED BY: RUBEN Labmanan Yefujm0692 [address] RoadDublin [place] [id number] TSH ([id number])Ordered By: Wiren Boarde m Senior Accountant on 01-11-2022 TSH Qn 3.390 {uIU/mL} Normal 0.450-4.500 Comprehen sive Internal Medicine; [facility] Work Phone: Comment on above: PATIENT WAS FASTINGP ERFORMED BY: RUBEN Labparker TrevinoBvfhuz2970 [address] RoadDublin [place] [id number] URINALYSIS, W/ MICRO ([id number]) Ordered By: Die Sizer on 01-11-2022 Appearance (U) Clear Normal Comprehens иван Internal Medicine; [facility] Work Phone: Comment on above: PATIENT WAS FASTINGP ERFORMED BY: RUBEN [facility] Mhjxsb7368 [address] RoadDublin [place] [id number] Bilirubin Ql (U) Negative Normal Comprehe nsive Internal Medicine; [facility] Work Phone: Comment on above: PATIENT WAS FASTINGP ERFORMED BY: RUBEN [facility] Nttmfo5368 [address] RoadDublin [place] [id number] Color (U) Yellow Normal [facility]; [facility] Work Phone: Comment on above: PATIENT WAS FASTINGP ERFORMED BY: RUBEN Melodyparker TrevinoNbmwsg6751 [facility] [id number] Glucose Ql (U) Negative Normal Comprehens иван Internal Medicine; [facility] Work Phone: Comment on above: PATIENT WAS FASTINGP ERFORMED BY: RUBEN Trevinolin6370 [facility] [id number] Hemoglobin Ql (U) Negative Normal Compreh ensive Internal Medicine; [facility] Work Phone: Comment on above: PATIENT WAS FASTINGP ERFORMED BY: RUBEN Melodyparker TrevinoOrimxo4355 [facility] [id number] Ketones Ql (U) Negative Normal Comprehens иван Internal Medicine; [facility] Work Phone: Comment on above: PATIENT WAS FASTINGP ERFORMED BY: RUBEN Trevinolin6370 [facility] [id number] Leukocyte esterase Test strip Ql (U) Trace Abnormal [facility]; [facility] Work Phone: Comment on above: PATIENT WAS FASTINGP ERFORMED BY: RUEBN Trevinolin6370 [facility] [id number] Microscopic observation LM Nom (Urine sed) See below: Normal [facility]; [facility] Work Phone: Comment on above: Microscopic was evita cated and was performed. PATIENT WAS FASTINGP ERFORMED BY: RUBEN Melodyparker Ovcohi7352 [facility] [id number] Nitrite Ql (U) Negative Normal Comprehens иван Internal Medicine; [facility] Work Phone: Comment on above: PATIENT WAS FASTINGP ERFORMED BY: RUBEN Melodyparker Qitenh4159 [facility] [id number] pH (U) 6.0 [pH] Normal 5.0-7.5 [facility]; [facility] Work Phone: Comment on above: PATIENT WAS FASTINGP ERFORMED BY: RUBEN Labgeneral [facility] Hjirvf[address] [facility]bl[facility] [place] [id number] Protein Ql (U) Negative Normal Comprehens иван Internal Medicine; [facility] Work Phone: Comment on above: PATIENT WAS FASTINGP ERFORMED BY: RUBEN [facility] Zgtqqx2185 [address] [facility]in [place] [id number] Specific gravity (U) [Rel density] 1.016 1 Normal 1.005-1.030 [facility]; [facility] Work Phone: Comment on above: PATIENT WAS FASTINGP ERFORMED BY: RUBEN LabHenry [facility] Hospital6370 [address] [facility]in [place] [id number] Urobilinogen (U) [Mass/Vol] 0.2 mg/dL Normal 0.2-1.0 [facility]; [facility] Work Phone: Comment on above: PATIENT WAS FASTINGP ERFORMED BY: RUBEN [facility] Oywczz5715 [address] [facility] [id number] VITAMIN B-12 (CYANOCOBALAMIN ) ([id number])Ordered By: Die Sizer on 02-02-2021 Cobalamin (Vitamin B12) [Mass/Vol] 1073 pg/mL Normal 232-1245 [facility]; [facility] Work Phone: Comment on above: PATIENT NOT FASTINGP ERFORMED BY: RUBEN LabInsight [facility]6370 [facility] [id number] CBC W/AUTO DIFF WBC (66775)O rdered By: Die Sizer on 01-12-2021 Basophils (Bld) [#/Vol] 0.0 10*3/uL Normal 0.0-0.2 [facility]; [facility] Work Phone: Comment on above: PATIENT WAS FASTINGP ERFORMED BY: RUBEN LabSaint [facility] Ybjuwh[address] [facility]bl[facility] [place] [id number] Basophils/100 WBC (Bld) 1 % Normal [facility]; [facility] Work Phone: Comment on above: PATIENT WAS FASTINGP ERFORMED BY: LabInsight Surgical Hospital6370 [address] [facility] [id number] Eosinophils (Bld) [#/Vol] 0.1 10*3/uL Normal 0.0-0.4 [facility]; [facility] Work Phone: Comment on above: PATIENT WAS FASTINGP ERFORMED BY: RUBEN Lorrie Rmxtym1243 [address] [facility] [id number] Eosinophils/100 WBC (Bld) 2 % Normal [facility]; [facility] Work Phone: Comment on above: PATIENT WAS FASTINGP ERFORMED BY: RUBEN MelodySaint Luke'S Hospital Upnhlo0877 [facility] [id number] Erythrocyte distribution width (RBC) [Ratio] 11.8 % Normal 11.7-15.4 [facility]; [facility] Work Phone: Comment on above: PATIENT WAS FASTINGP ERFORMED BY: [facility] Wtgkef5814 [address] [facility] [id number] Hematocrit (Bld) [Volume fraction] 39.2 % Normal 34.0-46.6 [facility]; [facility] Work Phone: Comment on above: PATIENT WAS FASTINGP ERFORMED BY: MelodySaint [facility]'S Hospital Djtvkv1067 [facility] [id number] Hemoglobin (Bld) [Mass/Vol] 13.1 g/dL Normal 11.1-15.9 [facility]; [facility] Work Phone: Comment on above: PATIENT WAS FASTINGP ERFORMED BY: LabSaint [facility]'S Hospital Qsagth7091 [address] [facility] [id number] Immature granulocytes (Bld) [#/Vol] 0.0 10*3/uL Normal 0.0-0.1 [facility]; [facility] Work Phone: Comment on above: PATIENT WAS FASTINGP ERFORMED BY: LabSaint [facility]'S Hospital Elcpoh0677 [address] [facility] [id number] Immature granulocytes/100 WBC (Bld) 0 % Normal [facility]; [facility] Work Phone: Comment on above: PATIENT WAS FASTINGP ERFORMED BY: [facility]6[address] [facility]in [place] [id number] Lymphocytes (Bld) [#/Vol] 1.6 10*3/uL Normal 0.7-3.1 [facility]; [facility] Work Phone: Comment on above: PATIENT WAS FASTINGP ERFORMED BY: [facility]6370 [facility] [id number] Lymphocytes/100 WBC (Bld) 34 % Normal [facility]; [facility] Work Phone: Comment on above: PATIENT WAS FASTINGP ERFORMED BY: [facility]6370 [facility] [id number] MCH (RBC) [Entitic mass] 32.6 pg Normal 26.6-33.0 [facility]; [facility] Work Phone: Comment on above: PATIENT WAS FASTINGP ERFORMED BY: [place] 7348670 [facility] [id number] MCHC (RBC) [Mass/Vol] 33.4 g/dL Normal 31.5-35.7 [facility] prehensive Internal Medicine; [facility] Work Phone: Comment on above: PATIENT WAS FASTINGP ERFORMED BY: [facility]6370 [facility]in [place] [id number] MCV (RBC) [Entitic vol] 98 fL Abnormal 79-97 [facility]; [facility] Work Phone: Comment on above: PATIENT WAS FASTINGP ERFORMED BY: [facility]6370 [facility] [id number] Monocytes (Bld) [#/Vol] 0.4 10*3/uL Normal 0.1-0.9 [facility]; [facility] Work Phone: Comment on above: PATIENT WAS FASTINGP ERFORMED BY: [facility] [facility]bl[facility] [place] [id number] Monocytes/100 WBC (Bld) 9 % Normal [facility]; [facility] Work Phone: Comment on above: PATIENT WAS FASTINGP ERFORMED BY: RUBEN [facility] Iqvgjd5222 [address] RoadDublin [place] [id number] Neutrophils (Bld) [#/Vol] 2.5 10*3/uL Normal 1.4-7.0 [facility]; [facility] Work Phone: Comment on above: PATIENT WAS FASTINGP ERFORMED BY: CB [facility] Fipxes4830 [address] RoadDublin [place] [id number] Neutrophils/100 WBC (Bld) 54 % Normal [facility]; [facility] Work Phone: Comment on above: PATIENT WAS FASTINGP ERFORMED BY: CB [facility] Fnrrpf5797 [address] RoadDublin [place] [id number] Platelets (Bld) [#/Vol] 276 10*3/uL Normal 150-450 [facility]; [facility] Work Phone: Comment on above: PATIENT WAS FASTINGP ERFORMED BY: CB [facility] Ffkvtj6329 [address] RoadDublin [place] [id number] RBC (Bld) [#/Vol] 4.02 10*6/uL Normal 3.77-5.28 Compr ensive Internal Medicine; [facility] Work Phone: Comment on above: PATIENT WAS FASTINGP ERFORMED BY: RUBEN [facility] Obplzn5589 [address] RoadDublin [place] [id number] WBC (Bld) [#/Vol] 4.7 10*3/uL Normal 3.4-10.8 Compre [facility] Internal Medicine; [facility] Work Phone: Comment on above: PATIENT WAS FASTINGP ERFORMED BY: CB [facility] Qjrwkb8625 [address] RoadDublin [place] [id number] LIPID PANEL ([id number])Ordered B y: Die Sizer on 01-12-2021 Cholesterol [Mass/Vol] 200 mg/dL Abnormal 100-199 [facility]; [facility] Work Phone: Comment on above: PATIENT WAS FASTINGP ERFORMED BY: CB [facility] Insspc2841 [address] RoadDublin [place] [id number] Cholesterol in HDL [Mass/Vol] 75 mg/dL Normal [facility]; [facility] Work Phone: Comment on above: PATIENT WAS FASTINGP ERFORMED BY: RUBEN LabParker Amaro6370 [address] [facility] [id number] Triglyceride [Mass/Vol] 72 mg/dL Normal 0-149 [facility]; [facility] Work Phone: Comment on above: PATIENT WAS FASTINGP ERFORMED BY: RUBEN [facility] Txpbui0957 [address] [facility] [id number] LIPID PANEL ([id number]) 13 mg/dL Normal 5-40 [facility]; [facility] Work Phone: Comment on above: PATIENT WAS FASTINGP ERFORMED BY: RUBEN LabParker TrevinoUkejzx3239 [facility] [id number] LIPID PANEL ([id number]) 112 mg/dL Abnormal 0-99 [facility]; [facility] Work Phone: Comment on above: PATIENT WAS FASTINGP ERFORMED BY: RUBEN LabSaint [facility] Hospital Ndithj1854 [facility] [id number] LIPID PANEL (36491) 1.5 {ratio} Normal 0.0-3.2 [facility]; [facility] Work Phone: Comment on above: LDL/HDL Ratio Men Wo men 1/2 Avg.Risk 1.0 1.5 Avg.Risk 3.6 3.2 2X Avg.Risk 6.2 5.0 3X Avg.Risk 8.0 6.1 PATIENT WAS FASTINGP ERFORMED BY: RUBEN [facility] Tlowqi8882 [facility] [id number] METABOLIC PANEL, COMPREHENSI VE (09931)Ordered By: Die Sizer on 01-12-2021 Albumin [Mass/Vol] 4.9 g/dL Normal 3.8-4.9 [facility] Internal Medicine; [facility] Work Phone: Comment on above: PATIENT WAS FASTINGP ERFORMED BY: RUBEN [facility] Xetvpm1927 [address] [facility] [id number] Albumin/Globulin [Mass ratio] 2.0 {ratio} Normal 1.2-2.2 [facility]; [facility] Work Phone: Comment on above: PATIENT WAS FASTINGP ERFORMED BY: RUBEN [facility] Nnivdd2842 [address] RoadDublin [place] [id number] ALP [Catalytic activity/Vol] 79 U/L Normal 48-121 [facility]; [facility] Work Phone: Comment on above: PATIENT WAS FASTINGP ERFORMED BY: CB [facility] Ciynmb3478 [address] RoadDublin [place] [id number] ALT [Catalytic activity/Vol] 19 U/L Normal 0-32 [facility]; [facility] Work Phone: Comment on above: PATIENT WAS FASTINGP ERFORMED BY: [facility] Mvbcvh5137 [address]la RoadDublin [place] [id number] AST [Catalytic activity/Vol] 25 U/L Normal 0-40 [facility]; [facility] Work Phone: Comment on above: PATIENT WAS FASTINGP ERFORMED BY: [facility] Qoiygd1775 [address] RoadDublin [place] [id number] Bilirubin [Mass/Vol] 0.2 mg/dL Normal 0.0-1.2 [facility]; [facility] Work Phone: Comment on above: PATIENT WAS FASTINGP ERFORMED BY: [facility] Gcoxdg8040 [address] RoadDublin [place] [id number] Calcium [Mass/Vol] 10.2 mg/dL Normal 8.7-10.2 [facility] Internal Medicine; [facility] Work Phone: Comment on above: PATIENT WAS FASTINGP ERFORMED BY: [facility] Kazril6677 [address] RoadDublin [place] [id number] Chloride [Moles/Vol] 99 mmol/L Normal 96-106 [facility]; [facility] Work Phone: Comment on above: PATIENT WAS FASTINGP ERFORMED BY: [facility] Olnxbg3399 [address] RoadDublin [place] [id number] CO2 [Moles/Vol] 25 mmol/L Normal 20-29 [facility]; [facility] Work Phone: Comment on above: PATIENT WAS FASTINGP ERFORMED BY: [facility]6370 [facility] [id number] Creatinine [Mass/Vol] 0.90 mg/dL Normal 0.57-1.00 [facility] prehensive Internal Medicine; [facility] Work Phone: Comment on above: PATIENT WAS FASTINGP ERFORMED BY: [facility] Prqfps4040 [facility] [id number] GFR/1.73 sq M.predicted among blacks CKD-EPI (S/P/Bld) [Vol rate/Area] 85 mL/min/1.73 Normal [facility]; [facility] Work Phone: Comment on above: [facility] currently reports eGFR in compliance with the current recommendations of the National Kidney Foundation. [facility] will update reporting as new guidelines are published from the NKF-ASN Task force. PATIENT WAS FASTINGP ERFORMED BY: [facility]6370 [facility] [id number] GFR/1.73 sq M.predicted among non-blacks CKD-EPI (S/P/Bld) [Vol rate/Area] 74 mL/min/1.73 Normal [facility]; [facility] Work Phone: Comment on above: PATIENT WAS FASTINGP ERFORMED BY: [facility] Dbaiwj8407 [facility] [id number] Globulin (S) [Mass/Vol] 2.4 g/dL Normal 1.5-4.5 [facility]; [facility] Work Phone: Comment on above: PATIENT WAS FASTINGP ERFORMED BY: [facility] Pdauar9540 [facility] [id number] Glucose [Mass/Vol] 98 mg/dL Normal 65-99 [facility] Internal Medicine; [facility] Work Phone: Comment on above: PATIENT WAS FASTINGP ERFORMED BY: [facility] Zxdwhs8314 [facility] [id number] Potassium [Moles/Vol] 4.1 mmol/L Normal 3.5-5.2 [facility]; [facility] Work Phone: Comment on above: PATIENT WAS FASTINGP ERFORMED BY: RUBEN LabManan Uvgmsq0520 [address] RoadDublin [place] [id number] Protein [Mass/Vol] 7.3 g/dL Normal 6.0-8.5 [facility] Internal Medicine; [facility] Work Phone: Comment on above: PATIENT WAS FASTINGP ERFORMED BY: RUBEN [facility] Xwqyzf[address] [facility] Hospitalblin [place] [id number] Sodium [Moles/Vol] 140 mmol/L Normal 134-144 [facility] Internal Medicine; [facility] Work Phone: Comment on above: PATIENT WAS FASTINGP ERFORMED BY: RUBEN LabSaint [facility] Gfyybb5[address] [facility]in [place] [id number] Urea nitrogen [Mass/Vol] 28 mg/dL Abnormal 6-24 [facility]; [facility] Work Phone: Comment on above: PATIENT WAS FASTINGP ERFORMED BY: RUBEN [facility] Unixyq[address] Francis Hospitalblin [place] [id number] Urea nitrogen/Creatinine [Mass ratio] 31 mg/mg Abnormal 9-23 [facility]; [facility] Work Phone: Comment on above: PATIENT WAS FASTINGP ERFORMED BY: [facility] Fqkdsa9072 [facility] [id number] MICROALBUMINOrdered By: Syst em Senior Accountant on 01-12-2021 Albumin DL <= 20 mg/L (U) [Mass/Vol] 17.2 ug/mL Normal [facility]; [facility] Work Phone: Comment on above: PATIENT WAS FASTINGP ERFORMED BY: RUBEN [facility] Nnhpqs[address] [facility]in [place] [id number] Albumin/Creatinine (U) [Mass ratio] 11 {mg/g_creat} Normal 0-29 [facility]; [facility] Work Phone: Comment on above: Normal: 0 - 29 Moder ately increased: 30 - 300 Severely increased: >300 PATIENT WAS FASTINGP ERFORMED BY: RUBEN LabParker TrevinoGparyg3079 [address] RoadDublin [place] [id number] Creatinine (U) [Mass/Vol] 159.3 mg/dL Normal [facility]; [facility] Work Phone: Comment on above: PATIENT WAS FASTINGP ERFORMED BY: RUBEN Trevinolin[address]Dublin [place] [id number] TSH ([id number])Ordered By: Wiren Boarde m Senior Accountant on 01-12-2021 TSH Qn 3.500 {uIU/mL} Normal 0.450-4.500 Comprehen sive Internal Medicine; [facility] Work Phone: Comment on above: PATIENT WAS FASTINGP ERFORMED BY: RUBEN Trevinolin6[address]Dublin [place] [id number] URINALYSIS, W/ MICRO ([id number]) Ordered By: Die Sizer on 01-12-2021 Appearance (U) Clear Normal Comprehens иван Internal Medicine; [facility] Work Phone: Comment on above: PATIENT WAS FASTINGP ERFORMED BY: RUBEN Trevinolin[address]Dublin [place] [id number] Bilirubin Ql (U) Negative Normal Comprehe nsive Internal Medicine; [facility] Work Phone: Comment on above: PATIENT WAS FASTINGP ERFORMED BY: RUBEN Trevinolin[address]Dublin [place] [id number] Color (U) Yellow Normal [facility]; [facility] Work Phone: Comment on above: PATIENT WAS FASTINGP ERFORMED BY: RUBEN LabParker TrevinoBbcptg8747 [address] RoadDublin [place] [id number] Glucose Ql (U) Negative Normal Comprehens иван Internal Medicine; [facility] Work Phone: Comment on above: PATIENT WAS FASTINGP ERFORMED BY: RUBEN LabParker TrevinoBhxujd1820 [address] RoadDublin [place] [id number] Hemoglobin Ql (U) Negative Normal Compreh ensive Internal Medicine; [facility] Work Phone: Comment on above: PATIENT WAS FASTINGP ERFORMED BY: RUBEN Amaro[address] [facility]in [place] [id number] Ketones Ql (U) Negative Normal Comprehens иван Internal Medicine; [facility] Work Phone: Comment on above: PATIENT WAS FASTINGP ERFORMED BY: RUBEN Amaro[address] [facility] [id number] Leukocyte esterase Test strip Ql (U) 2+ Abnormal [facility]; [facility] Work Phone: Comment on above: PATIENT WAS FASTINGP ERFORMED BY: RUBEN Amaro6370 [facility] [id number] Microscopic observation LM Nom (Urine sed) See below: Normal [facility]; [facility] Work Phone: Comment on above: Microscopic was evita cated and was performed. PATIENT WAS FASTINGP ERFORMED BY: RUBEN Amaro6370 [facility] [id number] Nitrite Ql (U) Negative Normal Comprehens иван Internal Medicine; [facility] Work Phone: Comment on above: PATIENT WAS FASTINGP ERFORMED BY: RUBEN Amaro6370 [facility] [id number] pH (U) 6.0 [pH] Normal 5.0-7.5 [facility]; [facility] Work Phone: Comment on above: PATIENT WAS FASTINGP ERFORMED BY: RUBEN Trevinolin6370 [facility] [id number] Protein Ql (U) Negative Normal Comprehens иван Internal Medicine; [facility] Work Phone: Comment on above: PATIENT WAS FASTINGP ERFORMED BY: RUBEN Amaro6370 [facility] [id number] Specific gravity (U) [Rel density] 1.027 1 Normal 1.005-1.030 [facility]; [facility] Work Phone: Comment on above: PATIENT WAS FASTINGP ERFORMED BY: RUBEN LabSaint [facility] Eosjmi1113 [facility] [id number] Urobilinogen (U) [Mass/Vol] 0.2 mg/dL Normal 0.2-1.0 [facility]; [facility] Work Phone: Comment on above: PATIENT WAS FASTINGP ERFORMED BY: [facility] Tuhzev4494 [facility] [id number] CORONAVIRUS PCR [CCL]on 04-14 COVID 19 Result FOUNDRY MANAGER Negative Normal [facility] Comment on above: Result Comment: Nega tive for COVID19 (SARS CoV2) by PCR. This test was developed and its performance characteristics determined by [facility] [place]. This test has been authorized by FDA under an Emergency Use Authorization (EUA). This test has been validated in accordance with the FDA's Guidance Document Policy for Diagnostics Testing in Laboratories Certified to Perform High Complexity Testing under CLIA prior to Emergency use Authorization for Coronavirus Disease 2019 during the Public Health Emergency issued on September 11, 2019. [facility] [address] [place] [address] Sami Ballard III, M.D. [id number] Performed By: #### 2 09938 #### [address] [address] COVID 19 Source FOUNDRY MANAGER FOUNDRY MANAGER SWAB Normal [facility] Comment on above: Performed By: #### 2 25228 #### [facility],[address] [place] [id number] CALCIFIDIOL (68446) VIT D 25 Ordered By: Die Sizer on 12-17-2019 25-Hydroxyvitamin D2+25-Hydroxyvitamin D3 [Mass/Vol] 71.1 ng/mL Normal 30.0-100.0 [facility] Work Phone: Comment on above: Vitamin D deficiency has been defined by the [place] ofMedicine and an Endocrine Society practice guideline as alevel of serum 25-OH vitamin D less than 20 ng/mL (1,2).The Endocrine Society went on to further define vitamin Dinsufficiency as a level between 21 and 29 ng/mL (2).1. IOM ([place] of Medicine). 2010. Dietary reference intakes for calcium and D. [place]: The National Academies Press.2. Krystal MF, Ashtyn GREENBERG, Cassandra FLEMING, et al. Evaluation, treatment, and prevention of vitamin D deficiency: an Endocrine Society clinical practice guideline. JCEM. 2010; 96(7):1911-30. PATIENT WAS FASTINGP ERFORMED BY: velingo LabJell Networks, LLC Ehgcwl2776 GlobalMedia Groupblin [place] [id number] CBC W/AUTO DIFF WBC (39177)O rdered By: Die Sizer on 12-17-2019 Basophils (Bld) [#/Vol] 0.0 {x10E3/uL} Normal 0.0-0.2 [facility] Work Phone: Comment on above: PATIENT WAS FASTINGP ERFORMED BY: openPeople Rrpyfu8242 MBA and Companyblin [place] [id number] Basophils (Bld) [#/Vol] 0.0 10*3/uL Normal 0.0-0.2 [facility]; [facility] Work Phone: Comment on above: PATIENT WAS FASTINGP ERFORMED BY: Koubachi Nfzkyf[address] ProLedge Bookkeeping Servicesblin [place] [id number] Basophils/100 WBC (Bld) 1 % Normal [facility] Work Phone: Comment on above: PATIENT WAS FASTINGP ERFORMED BY: iOculi[address] Caro Nutblin [place] [id number] Eosinophils (Bld) [#/Vol] 0.3 {x10E3/uL} Normal 0.0-0.4 [facility] Work Phone: Comment on above: PATIENT WAS FASTINGP ERFORMED BY: velingo LabSilverback Systems Dgygya[address] Caro NutDublin [place] [id number] Eosinophils (Bld) [#/Vol] 0.3 10*3/uL Normal 0.0-0.4 [facility]; [facility] Work Phone: Comment on above: PATIENT WAS FASTINGP ERFORMED BY: RUBEN MelodyInsight Surgical Hospital6[address]blin [place] [id number] Eosinophils/100 WBC (Bld) 6 % Normal [facility] Work Phone: Comment on above: PATIENT WAS FASTINGP ERFORMED BY: RUBEN MelodySaint [facility]'S Hospital Qppegn2641 [address] [facility] [id number] Erythrocyte distribution width (RBC) [Ratio] 13.4 % Normal 11.7-15.4 [facility] Work Phone: Comment on above: PATIENT WAS FASTINGP ERFORMED BY: LabInsight Surgical Hospital6370 [address] RoadSwain Community Hospitalin [place] [id number] Hematocrit (Bld) [Volume fraction] 39.3 % Normal 34.0-46.6 [facility] Work Phone: Comment on above: PATIENT WAS FASTINGP ERFORMED BY: [facility] Pfbgqm2346 [address] [facility]in [place] [id number] Hemoglobin (Bld) [Mass/Vol] 12.8 g/dL Normal 11.1-15.9 [facility] Work Phone: Comment on above: PATIENT WAS FASTINGP ERFORMED BY: MelodySaint [facility] Hospital Pnagvx6253 [address] Roadblin [place] [id number] Immature granulocytes (Bld) [#/Vol] 0.0 {x10E3/uL} Normal 0.0-0.1 [facility] Work Phone: Comment on above: PATIENT WAS FASTINGP ERFORMED BY: LabSaint [facility] Nxuwgj8307 [address] RoadDublin [place] [id number] Immature granulocytes (Bld) [#/Vol] 0.0 10*3/uL Normal 0.0-0.1 [facility]; [facility] Work Phone: Comment on above: PATIENT WAS FASTINGP ERFORMED BY: MelodyInsight Surgical Hospital6370 [address]Dublin [place] [id number] Immature granulocytes/100 WBC (Bld) 0 % Normal [facility] Work Phone: Comment on above: PATIENT WAS FASTINGP ERFORMED BY: RUBEN [facility] Qxbher8693 [facility] [id number] Lymphocytes (Bld) [#/Vol] 1.3 {x10E3/uL} Normal 0.7-3.1 [facility] Work Phone: Comment on above: PATIENT WAS FASTINGP ERFORMED BY: [place] 7348670 [facility] [id number] Lymphocytes (Bld) [#/Vol] 1.3 10*3/uL Normal 0.7-3.1 [facility]; [facility] Work Phone: Comment on above: PATIENT WAS FASTINGP ERFORMED BY: RUBEN OliverSaint Luke'S Hospital Grqjbs4661 [facility] [id number] Lymphocytes/100 WBC (Bld) 29 % Normal [facility] Work Phone: Comment on above: PATIENT WAS FASTINGP ERFORMED BY: RUBEN [place] 5239970 [facility] [id number] MCH (RBC) [Entitic mass] 33.1 pg Abnormal 26.6-33.0 [facility] Work Phone: Comment on above: PATIENT WAS FASTINGP ERFORMED BY: [place] 7348670 [facility] [id number] MCHC (RBC) [Mass/Vol] 32.6 g/dL Normal 31.5-35.7 [facility] prehensive Internal Medicine Work Phone: Comment on above: PATIENT WAS FASTINGP ERFORMED BY: [facility]6370 [facility] [id number] MCV (RBC) [Entitic vol] 102 fL Abnormal 79-97 [facility] Work Phone: Comment on above: PATIENT WAS FASTINGP ERFORMED BY: [place] 7348670 [facility] [id number] Monocytes (Bld) [#/Vol] 0.4 {x10E3/uL} Normal 0.1-0.9 [facility] Work Phone: Comment on above: PATIENT WAS FASTINGP ERFORMED BY: RUBEN LabSaint [facility] Hospital Zbrqsu6058 [address] RoadDublin [place] [id number] Monocytes (Bld) [#/Vol] 0.4 10*3/uL Normal 0.1-0.9 [facility]; [facility] Work Phone: Comment on above: PATIENT WAS FASTINGP ERFORMED BY: RUBEN LabSaint [facility] Hospital Kykocg7578 [address] RoadDublin [place] [id number] Monocytes/100 WBC (Bld) 8 % Normal [facility] Work Phone: Comment on above: PATIENT WAS FASTINGP ERFORMED BY: RUBEN LabSaint [facility] Hospital Glexsr6095 [address] RoadDublin [place] [id number] Neutrophils (Bld) [#/Vol] 2.5 {x10E3/uL} Normal 1.4-7.0 [facility] Work Phone: Comment on above: PATIENT WAS FASTINGP ERFORMED BY: RUBEN OliverSaint [facility] Hospital Tiioiw6802 [address] RoadDublin [place] [id number] Neutrophils (Bld) [#/Vol] 2.5 10*3/uL Normal 1.4-7.0 [facility]; [facility] Work Phone: Comment on above: PATIENT WAS FASTINGP ERFORMED BY: RUBEN Trevinolin6370 [address]Dublin [place] [id number] Neutrophils/100 WBC (Bld) 56 % Normal [facility] Work Phone: Comment on above: PATIENT WAS FASTINGP ERFORMED BY: LabSaint [facility] Bdfhsd9068 [address] RoadDublin [place] [id number] Platelets (Bld) [#/Vol] 277 {x10E3/uL} Normal 150-450 [facility] Work Phone: Comment on above: PATIENT WAS FASTINGP ERFORMED BY: RUBEN LabSaint [facility] Hospital Pntvgz4155 [address] RoadDublin [place] [id number] Platelets (Bld) [#/Vol] 277 10*3/uL Normal 150-450 [facility]; [facility] Work Phone: Comment on above: PATIENT WAS FASTINGP ERFORMED BY: RUBEN [facility] Wxrosd6757 [address] RoadDublin [place] [id number] RBC (Bld) [#/Vol] 3.87 {x10E6/uL} Normal 3.77-5.28 [facility] Internal Medicine Work Phone: Comment on above: PATIENT WAS FASTINGP ERFORMED BY: CB [facility] Hmclhl5896 [address] RoadDublin [place] [id number] RBC (Bld) [#/Vol] 3.87 10*6/uL Normal 3.77-5.28 [facility] Internal [facility]; [facility] Work Phone: Comment on above: PATIENT WAS FASTINGP ERFORMED BY: CB [facility] Rtxoky3727 [address] RoadDublin [place] [id number] WBC (Bld) [#/Vol] 4.4 {x10E3/uL} Normal 3.4-10.8 [facility] Internal Medicine Work Phone: Comment on above: PATIENT WAS FASTINGP ERFORMED BY: CB [facility] Pggkug9969 [address] RoadDublin [place] [id number] WBC (Bld) [#/Vol] 4.4 10*3/uL Normal 3.4-10.8 [facility] Internal Medicine; [facility] Work Phone: Comment on above: PATIENT WAS FASTINGP ERFORMED BY: RUBEN [facility] Qgvoon5896 [address] RoadDublin [place] [id number] LIPID PANEL ([id number])Ordered B y: Die Sizer on 12-17-2019 Cholesterol [Mass/Vol] 190 mg/dL Normal 100-199 [facility] Work Phone: Comment on above: PATIENT WAS FASTINGP ERFORMED BY: CB [facility] Umwazo0809 [address] RoadDublin [place] [id number] Cholesterol in HDL [Mass/Vol] 86 mg/dL Normal [facility] Work Phone: Comment on above: PATIENT WAS FASTINGP ERFORMED BY: CB [facility] Gotjij1961 [address] RoadDublin [place] [id number] Cholesterol in LDL [Mass/Vol] 92 mg/dL Normal 0-99 [facility] Work Phone: Comment on above: PATIENT WAS FASTINGP ERFORMED BY: RUBEN Amaro6370 [facility] Springfieldin [place] [id number] Cholesterol in LDL/Cholesterol in HDL [Mass ratio] 1.1 {ratio} Normal 0.0-3.2 [facility] Work Phone: Comment on above: LDL/HDL Ratio Men Wo men 1/2 Avg.Risk 1.0 1.5 Avg.Risk 3.6 3.2 2X Avg.Risk 6.2 5.0 3X Avg.Risk 8.0 6.1 PATIENT WAS FASTINGP ERFORMED BY: RUBEN Amaro[address] Caro NutNovant Health [facility] [id number] Cholesterol in VLDL [Mass/Vol] 12 mg/dL Normal 5-40 [facility] Work Phone: Comment on above: PATIENT WAS FASTINGP ERFORMED BY: RUBEN Trevinolin[address] [facility]in [place] [id number] Triglyceride [Mass/Vol] 62 mg/dL Normal 0-149 [facility] Work Phone: Comment on above: PATIENT WAS FASTINGP ERFORMED BY: RUBEN Amaro6370 [facility] Springfieldin [place] [id number] METABOLIC PANEL, COMPREHENSI VE ([id number])Ordered By: Die Sizer on 12-17-2019 Albumin [Mass/Vol] 4.9 g/dL Normal 3.8-4.9 [facility] Internal Medicine Work Phone: Comment on above: PATIENT WAS FASTINGP ERFORMED BY: RUBEN Trevinolin6[address] [facility]in [place] [id number] Albumin/Globulin [Mass ratio] 2.1 {ratio} Normal 1.2-2.2 [facility] Work Phone: Comment on above: PATIENT WAS FASTINGP ERFORMED BY: RUBEN Trevinolin[address] [facility] Hospitalblin [place] [id number] ALP [Catalytic activity/Vol] 50 [iU]/L Normal 39-117 [facility] Work Phone: Comment on above: PATIENT WAS FASTINGP ERFORMED BY: RUBEN LabCohiro TrevinoEhpkgw1350 [address] RoadDublin [place] [id number] ALP [Catalytic activity/Vol] 50 U/L Normal 39-117 [facility]; [facility] Work Phone: Comment on above: PATIENT WAS FASTINGP ERFORMED BY: RUBEN LabCohiro TrevinoOybanj2069 [address] RoadDublin [place] [id number] ALT [Catalytic activity/Vol] 13 [iU]/L Normal 0-32 [facility] Work Phone: Comment on above: PATIENT WAS FASTINGP ERFORMED BY: RUBEN LabParker TrevinoXkwjhn5201 [address] RoadDublin [place] [id number] ALT [Catalytic activity/Vol] 13 U/L Normal 0-32 [facility]; [facility] Work Phone: Comment on above: PATIENT WAS FASTINGP ERFORMED BY: RUBEN Trevinolin6370 [address]Dublin [place] [id number] AST [Catalytic activity/Vol] 23 [iU]/L Normal 0-40 [facility] Work Phone: Comment on above: PATIENT WAS FASTINGP ERFORMED BY: RUBEN Trevinolin6370 [address]Dublin [place] [id number] AST [Catalytic activity/Vol] 23 U/L Normal 0-40 [facility]; [facility] Work Phone: Comment on above: PATIENT WAS FASTINGP ERFORMED BY: RUBEN LabParker TrevinoLxoqdj7121 [address] RoadDublin [place] [id number] Bilirubin [Mass/Vol] 0.4 mg/dL Normal 0.0-1.2 [facility] Work Phone: Comment on above: PATIENT WAS FASTINGP ERFORMED BY: RUBEN LabParker TrevinoOqjfux6487 [address] RoadDublin [place] [id number] Calcium [Mass/Vol] 10.1 mg/dL Normal 8.7-10.2 [facility] Internal Medicine Work Phone: Comment on above: PATIENT WAS FASTINGP ERFORMED BY: RUBEN LabParker TrevinoFxhjvw0006 [address] RoadDublin [place] [id number] Chloride [Moles/Vol] 96 mmol/L Normal 96-106 Comp [facility] hospitalensive Internal Medicine Work Phone: Comment on above: PATIENT WAS FASTINGP ERFORMED BY: [facility] Xametp1451 [address] RoadDublin [place] [id number] CO2 [Moles/Vol] 29 mmol/L Normal 20-29 Comprehen [facility] Internal Medicine Work Phone: Comment on above: PATIENT WAS FASTINGP ERFORMED BY: Lab[facility] Bindbr8571 [address] RoadDublin [place] [id number] Creatinine [Mass/Vol] 0.90 mg/dL Normal 0.57-1.00 [facility] Internal Medicine Work Phone: Comment on above: PATIENT WAS FASTINGP ERFORMED BY: LabSaint [facility] Enorub6122 [address] RoadDublin [place] [id number] GFR/1.73 sq M predicted among blacks CKD-EPI (S/P/Bld) [Vol rate/Area] 86 mL/min/1.73 Normal [facility] Work Phone: Comment on above: PATIENT WAS FASTINGP ERFORMED BY: LabCo Abmzrc2614 [address]Dublin [place] [id number] GFR/1.73 sq M predicted among non-blacks CKD-EPI (S/P/Bld) [Vol rate/Area] 74 mL/min/1.73 Normal [facility] Work Phone: Comment on above: PATIENT WAS FASTINGP ERFORMED BY: [facility] Tmegqg4793 [address] RoadDublin [place] [id number] Globulin (S) [Mass/Vol] 2.3 g/dL Normal 1.5-4.5 [facility] Work Phone: Comment on above: PATIENT WAS FASTINGP ERFORMED BY: [facility] Mlzcdd0128 [address] RoadDublin [place] [id number] Glucose [Mass/Vol] 90 mg/dL Normal 65-99 [facility] Internal Medicine Work Phone: Comment on above: PATIENT WAS FASTINGP ERFORMED BY: RUBEN LabCohiro Akkfjn2670 [address] RoadDublin [place] [id number] Potassium [Moles/Vol] 4.6 mmol/L Normal 3.5-5.2 [facility] Internal Medicine Work Phone: Comment on above: PATIENT WAS FASTINGP ERFORMED BY: RUBEN LabManan Thztmc8587 Shukla RoadDublin [place] [id number] Protein [Mass/Vol] 7.2 g/dL Normal 6.0-8.5 [facility] Internal Medicine Work Phone: Comment on above: PATIENT WAS FASTINGP ERFORMED BY: RUBEN LabParker TrevinoNovsom8150 Shukla RoadDublin [place] [id number] Sodium [Moles/Vol] 140 mmol/L Normal 134-144 [facility] Internal Medicine Work Phone: Comment on above: PATIENT WAS FASTINGP ERFORMED BY: RUBEN LabParker TrevinoHsjuhe9818 Shukla RoadDublin [place] [id number] Urea nitrogen [Mass/Vol] 17 mg/dL Normal 6-24 [facility] Internal Medicine Work Phone: Comment on above: PATIENT WAS FASTINGP ERFORMED BY: RUBEN LabParker TrevinoIjbobq3638 Shukla RoadDublin [place] [id number] Urea nitrogen/Creatinine [Mass ratio] 19 mg/mg Normal 9-23 [facility] Internal Medicine Work Phone: Comment on above: PATIENT WAS FASTINGP ERFORMED BY: RUBEN LabManan Ahuoej1536 Shukla RoadDublin [place] [id number] MICROALBUMINOrdered By: Syst em Senior Accountant on 12-17-2019 Albumin DL <= 20 mg/L (U) [Mass/Vol] 9.2 ug/mL Normal [facility] Work Phone: Comment on above: PATIENT WAS FASTINGP ERFORMED BY: RUBEN LabCohiro Qhvqwj6978 Shukla RoadDublin [place] [id number] Albumin/Creatinine (U) [Mass ratio] 9 {mg/g_creat} Normal 0-29 [facility] Work Phone: Comment on above: Normal: 0 - 29 Moder ately increased: 30 - 300 Severely increased: >300 Please note reference interval change PATIENT WAS FASTINGP ERFORMED BY: RUBEN [facility] Xxkqxq9283 Shukla RoadDublin [place] [id number] Creatinine (U) [Mass/Vol] 97.1 mg/dL Normal [facility] Work Phone: Comment on above: PATIENT WAS FASTINGP ERFORMED BY: RUBEN [facility] Wckjjy7167 Shukla RoadDublin [place] [id number] TSH ([id number])Ordered By: Wiren Boarde m Senior Accountant on 12-17-2019 TSH Qn 2.310 {uIU/mL} Normal 0.450-4.500 [facility] s[facility] Work Phone: Comment on above: PATIENT WAS FASTINGP ERFORMED BY: RUBEN [facility] Uruxkb5502 Shukla RoadDublin [place] [id number] URINALYSIS, W/ MICRO ([id number]) Ordered By: Die Sizer on 12-17-2019 Appearance (U) Clear Normal Comprehens иван Internal Medicine Work Phone: Comment on above: PATIENT WAS FASTINGP ERFORMED BY: RUBEN [facility] Yskneo7154 Sh[address] RoadDublin [place] [id number] Bilirubin Ql (U) Negative Normal Comprehe nsive Internal Medicine Work Phone: Comment on above: PATIENT WAS FASTINGP ERFORMED BY: RUBEN [facility] Qrtajg2409 Sh[address]la RoadDublin [place] [id number] Bilirubin Ql (U) Negative Normal Comprehe nsive Internal Medicine; [facility] Work Phone: Comment on above: PATIENT WAS FASTINGP ERFORMED BY: RUBEN [facility] Yxxhyt9537 Sh[address] RoadDublin [place] [id number] Color (U) Yellow Normal [facility] Work Phone: Comment on above: PATIENT WAS FASTINGP ERFORMED BY: RUBEN [facility] Mkfeqd8304 Shuk[address] RoadDublin [place] [id number] Glucose Ql (U) Negative Normal Comprehens [facility] Internal Medicine Work Phone: Comment on above: PATIENT WAS FASTINGP ERFORMED BY: RUBEN [facility] Lkmcxa9449 Sh[address] RoadDublin [place] [id number] Glucose Ql (U) Negative Normal Comprehens иван [facility]; [facility] Work Phone: Comment on above: PATIENT WAS FASTINGP ERFORMED BY: RUBEN [facility] Aghmmw7450 Sh[address] RoadDublin [place] [id number] Hemoglobin Ql (U) Negative Normal Compreh ensive Internal Medicine Work Phone: Comment on above: PATIENT WAS FASTINGP ERFORMED BY: RUBEN [facility] Haqzyq4730 [address] RoadDublin [place] [id number] Hemoglobin Ql (U) Negative Normal Compreh ensive Internal Medicine; [facility] Work Phone: Comment on above: PATIENT WAS FASTINGP ERFORMED BY: RUBEN [facility] Pwhcwb0194 [address] RoadDublin [place] [id number] Ketones Ql (U) Negative Normal Comprehens [facility] Medicine Work Phone: Comment on above: PATIENT WAS FASTINGP ERFORMED BY: RUBEN [facility] Iwbitp1268 Sh[address] RoadDublin [place] [id number] Ketones Ql (U) Negative Normal Comprehens иван [facility]; [facility] Work Phone: Comment on above: PATIENT WAS FASTINGP ERFORMED BY: RUBEN [facility] Lqfgch0186 Sh[address] RoadDublin [place] [id number] Leukocyte esterase Test strip Ql (U) Negative Normal [facility] Work Phone: Comment on above: PATIENT WAS FASTINGP ERFORMED BY: [facility] Vnfxrc6351 Sh[address] RoadDublin [place] [id number] Leukocyte esterase Test strip Ql (U) Negative Normal [facility]; [facility] Work Phone: Comment on above: PATIENT WAS FASTINGP ERFORMED BY: CB [facility] Canaup9084 [address] RoadDublin [place] [id number] Microscopic observation LM Nom (Urine sed) See below: Normal [facility] Work Phone: Comment on above: Microscopic was evita cated and was performed. PATIENT WAS FASTINGP ERFORMED BY: RUBEN [facility] Mdcnwu4368 Sh[address] RoadDublin [place] [id number] Microscopic observation LM Nom (Urine sed) MICRON Normal [facility] Work Phone: Comment on above: Microscopic follows if indicated. PATIENT WAS FASTINGP ERFORMED BY: RUBEN [facility] Lgugla5670 Sh[address]la RoadDublin [place] [id number] Nitrite Ql (U) Negative Normal Comprehens и[facility] Work Phone: Comment on above: PATIENT WAS FASTINGP ERFORMED BY: RUBEN [facility] Vzxktc9809 [address] RoadDublin [place] [id number] Nitrite Ql (U) Negative Normal Comprehens иван [facility]; [facility] Work Phone: Comment on above: PATIENT WAS FASTINGP ERFORMED BY: RUBEN [facility] Khsbwf8052 [address] RoadDublin [place] [id number] pH (U) 7.5 [pH] Normal 5.0-7.5 [facility] Work Phone: Comment on above: PATIENT WAS FASTINGP ERFORMED BY: RUBEN [facility] Tjxwgm9336 Sh[address] RoadDublin [place] [id number] Protein Ql (U) Negative Normal Comprehens иван [facility] Work Phone: Comment on above: PATIENT WAS FASTINGP ERFORMED BY: RUBEN [facility] Pdjsqk7084 Sh[address] RoadDublin [place] [id number] Protein Ql (U) Negative Normal Comprehens иван [facility]; [facility] Work Phone: Comment on above: PATIENT WAS FASTINGP ERFORMED BY: RUBEN [facility] Piilfk5583 [address] RoadDublin [place] [id number] Specific gravity (U) [Rel density] 1.016 1 Normal 1.005-1.030 [facility] Work Phone: Comment on above: PATIENT WAS FASTINGP ERFORMED BY: RUBEN [facility] Qslyes7450 Sh[address] RoadDublin [place] [id number] Urobilinogen (U) [Mass/Vol] 0.2 mg/dL Normal 0.2-1.0 [facility]; [facility] Work Phone: Comment on above: PATIENT WAS FASTINGP ERFORMED BY: RUBEN [employer] Migsjf[address]99 [address] Caro NutNovant [facility] [id number] Urobilinogen Test strip (U) [Mass/Vol] 0.2 mg/dL Normal 0.2-1.0 [facility] Internal Medicine Work Phone: Comment on above: PATIENT WAS FASTINGP ERFORMED BY: RUBEN LabCo Tlmokw6717 [facility] [id number] Complement Comp 4Aon 019 Complement 4A Level 743 ng/mL Normal 0-2830 [facility] Comment on above: Result Comment: (NOT E) This test uses a kit/reagent designated by the binder caser as for research use, not for clinical use. The performance characteristics of this test have been validated by [facility]. It has not been cleared or approved by the U.S. Food and Drug Administration. The results are not intended to be used as the sole means for clinical diagnosis or patient management decisions. This laboratory is certified under the Clinical Laboratory Improvement Amendments of 1988 (CLIA-88) as qualified to perform high complexity clinical laboratory testing. Testing performed at [facility] [address] [place] [address] CLIA [id number] Performed By: #### H OMCYS, FREET3, FT4, HBA1C, INSULN, GGT, HSCRP, TRANSF, VITD, FERR, TSH, MAGRBC, ZINC, ANAIFR, MMA, COMP4A #### [facility] [address] [id number] CNOVon 06-22-2019 CNOV Office Visit (FMCHAG ) VIRGINIA VILLAGRAN ([id number]) 1970 F Date Time Provider Department 06/22/19 [...] File Prior to Visit Medication Sig - Ulohtorw4-Gzxpqb9-Vdciu therm. (VSL#3) 450 billion cell pwpk Take [...] capsule by mouth once daily. - One [place] (Pure Encapsulation) -- fish oil Take 2 capsules by mouth daily with food. - Magnesium Glycinate 120mg 3 at night Stress, blood sugar, thyroid/hormones/adrena ls/sleep/energy/toxins/ muscles/constipation/as thma 3 capsules with meals at night - MultiThera 1 Capsule (Klaire/Prothera)- multivitamin Take 3 capsules by mouth twice daily with meals. - Vitamin D Mendenhall ([email or web address] for Health) Take 1 capsule by mouth [...] Get Back Into Full Remission Since. My Radio Aerial Installer Is Recommending Azathioprine, But I Am Very Reluctant To Take A Med That Decreases My Natural Immunity. I Want To Find Out If It Can Be Controlled In A Healthier Manner. When Was The Last Time You [place] Well? : Last Time In Full Remission [...] was good, grew [place], [place], [place] town ? 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 Bioelectrical Impedance Analysis Results by [employer] Recent Results from: 02/18/19 at 8:53 [...] run out, can do plant iron or Gratafy slow released iron one daily -Start slowly and increase as tolerated Soluble fiber: buy RedDrummer Fiber: preston fiber 1/2 tsp daily, increase [...] mouth. I recommend the supplements from the [facility] Trading Metrics at [email or web address] . Continue: Current Outpatient Medications Medication Sig - Natftfyd7-Bxjjoh1-Lyokp therm. (VSL#3) 450 billion cell pwpk Take 1 Packet by mouth once daily. - One [place] (Pure Encapsulation) -- fish oil Take 2 capsules by mouth daily with food. - Magnesium Glycinate 120mg 3 at night Stress, blood sugar, thyroid/hormones/adrena ls/sleep/energy/toxins/ muscles/constipation/as thma 3 capsules with meals at night - Vitamin D Mendenhall (mobifriends) Take 1 capsule by mouth daily with [...] bacteria colonies in top 5th% 06/07 high 5+malaiak 8+addl malaika s cervis 2+ ? Inflammation/Immune [...] run out, can do plant iron or numberFire labs slow released iron one daily -Start slowly and increase as tolerated Soluble fiber: buy RedDrummer Fiber: preston fiber 1/2 tsp daily, increase as tolerated to 2 tsp 1-2x/day (on Lenet) Medications/Supplements Recommended: Orders Placed This Encounter Berberine [...] mouth. I recommend the supplements from the [facility] Healthy Living Store at [email or web address] . Continue: Current Outpatient Medications Medication Sig - Vstwflnf5-Leywnc9-Kbdow therm. (VSL#3) 450 billion cell pwpk Take 1 Packet by mouth once daily. - One [place] (Pure Encapsulation) -- fish oil Take 2 capsules by mouth daily with food. - Magnesium Glycinate 120mg 3 at night Stress, blood sugar, thyroid/hormones/adrena ls/sleep/energy/toxins/ muscles/constipation/as thma 3 capsules with meals at night - Vitamin D Mendenh[place] ([employer] for Health) Take 1 capsule by [...] hypothyroidism [E03.9] Order(s):CALPROTECTIN,F ECAL [SQCALPRO] Order #: [id number] STANDING FERRITIN BLD [SQFERR] Order #: [id number] FUTURE T3 FREE BLD [SQFREET3] Order #: [id number] FUTURE T4 FREE/FREE THYROX [SQFT4] Order #: [id number] FUTURE TSH BLD [SQTSH] Order #: [id number] FUTURE ZINC BLD [SQZINC] Order #: [id number] FUTURE COMPLEMENT COMPONENT 4A [ASIQNN9H] Order #: [id number] FUTURE MATRIXMETALLOPROTEINASE 9 [SQMMP9] Order #: [id number] FUTURE HUMAN TGF BETA 1 [SQTGFB1] Order #: [id number] FUTURE Berberine 500 (Zaira)Take 1 capsule by [...] and increase as tolerated Soluble fiber: buy RedDrummer Fiber: preston fiber 1/2 tsp daily, increase [...] mouth. I recommend the supplements from the [facility] Cart[employer]ia Living Store at [email or web address] . Continue: Current Outpatient Medications Medication Sig - Wwtcpfkr7-Xwlixk6-Bnzhf therm. (VSL#3) 450 billion cell pwpk Take 1 Packet by mouth once daily. - One [place] (Pure Encapsulation) -- fish oil Take 2 capsules by mouth daily with food. - Magnesium Glycinate 120mg 3 at night Stress, blood sugar, thyroid/hormones/adrena ls/sleep/energy/toxins/ muscles/constipation/as thma 3 capsules with meals at night - Vitamin D Mendenhall (mobifriends) Take 1 capsule by mouth daily with [...] by AMY REED MD on 06/22/19 Normal [facility] Ferritinon 06-22-2019 Ferritin [Mass/Vol] 313.0 ng/mL High 14.7-205.1 [facility] Comment on above: Performed By: #### F REET3, FT4, FERR, TSH, ZINC, MMP9 ####[facility] AveCUrsa, [place] [phone] Free T3on 06-22-2019 Free T3 [Mass/Vol] 2.9 pg/mL Normal 2.3-4.1 [facility] Comment on above: Performed By: #### F REET3, FT4, FERR, TSH, ZINC, MMP9 ####[facility] AveCUrsa, [place] [phone] Free T4on 06-22-2019 Free T4 [Mass/Vol] 1.3 ng/dL Normal 0.9-1.7 [facility] Comment on above: Performed By: #### F REET3, FT4, FERR, TSH, ZINC, MMP9 ####[facility] [place], [place] [phone] HUMAN TGF BETA 1 LAB USE ONL Yon 06-22-2019 HUMAN TGF BETA 1 RES LAB USE ONLY 1464 pg/mL Normal 463-5423 [facility] Comment on above: Result Comment: (NOT E) INTERPRETIVE INFORMATION: Transforming Growth Factor beta, Plasma Results are intended for research purposes or in attempts to understand the pathophysiology of unusual immune or inflammatory disorders. Test developed and characteristics determined by [facility]. See Compliance Statement B: [employer] Performed by [facility], [address] [place] [address] [email or web address], Shyam Tenorio MD, Lab. Director Performed By: #### H OMCYS, FREET3, FT4, HBA1C, INSULN, GGT, HSCRP, TRANSF, VITD, FERR, TSH, MAGRBC, ZINC, ANAIFR, MMA, COMP4A #### [facility] [address] [place], [place] [address] Metalloproteinase 9 (LAB Use Only)on 06-22-2019 Protein [Mass/Vol] 219 ng/mL Normal <984 [facility] Comment on above: Result Comment: (NOT E) Test performed by [facility], [email or web address], [address], [place] [address] Performed By: #### H OMCYS, FREET3, FT4, HBA1C, INSULN, GGT, HSCRP, TRANSF, VITD, FERR, TSH, MAGRBC, ZINC, ANAIFR, MMA, COMP4A #### [facility] [address] [place], [place] [address] PROGRESSon 06-22-2019 PROGRESS HNO ID: [id number] Author: Amy Reed Service: ? Author Type: [...] File Prior to Visit Medication Sig - Ofsjmqdn3-Gjumrf2-Zgunq therm. (VSL#3) 450 billion cell pwpk Take [...] capsule by mouth once daily. - One [place] (Pure Encapsulation) -- fish oil Take 2 capsules by mouth daily with food. - Magnesium Glycinate 120mg 3 at night Stress, blood sugar, thyroid/hormones/adrena ls/sleep/energy/toxins/ muscles/constipation/as thma 3 capsules with meals at night - MultiThera 1 Capsule (Klaire/Prothera)- multivitamin Take 3 capsules by mouth twice daily with meals. - Vitamin D Mendenhall (mobifriends) Take 1 capsule by mouth daily with [...] Get Back Into Full Remission Since. My Radio Aerial Installer Is Recommending Azathioprine, But I Am Very Reluctant To Take A Med That Decreases My Natural Immunity. I Want To Find Out If It Can Be Controlled In A Healthier Manner. When Was The Last Time You [place] Well? : Last Time In Full Remission [...] was good, [place], [place], [place] town ? 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 Bioelectrical Impedance Analysis Results by [employer] Recent Results from: 02/18/19 at 8:53 [...] and increase as tolerated Soluble fiber: buy RedDrummer Fiber: preston fiber 1/2 tsp daily, increase [...] mouth. I recommend the supplements from the [facility] [employer] at [email or web address] . Continue: Current Outpatient Medications Medication Sig - Ykdadpir0-Rcehqo6-Ugotf therm. (VSL#3) 450 billion cell pwpk Take 1 Packet by mouth once daily. - One [place] (Pure Encapsulation) -- fish oil Take 2 capsules by mouth daily with food. - Magnesium Glycinate 120mg 3 at night Stress, blood sugar, thyroid/hormones/adrena ls/sleep/energy/toxins/ muscles/constipation/as thma 3 capsules with meals at night - Vitamin D [place] (Cashflowtuna.com for KitLocate) Take 1 capsule by mouth daily with [...] history, labs. Amy Reed MD, MPH Normal [facility] TSHon 06-22-2019 TSH Qn 1.780 uU/mL Normal 0.270-4.200 [facility] Comment on above: Performed By: #### F REET3, FT4, FERR, TSH, ZINC, MMP9 ####[address] [phone] Zincon 06-22-2019 Zinc 90 ug/dL Normal 55-150 [facility] Comment on above: Result Comment: This test was developed and its performance characteristics determined by [facility]'s Mike Nurys [facility] Pathology and Laboratory Medicine [place] ([facility]). It has not been cleared or approved by the FDA. [facility] is regulated under CLIA as qualified to perform high complexity testing. This test is used for clinical purposes. It should not be regarded as investigational or for research. Performed By: #### F REET3, FT4, FERR, TSH, ZINC, MMP9 ####[id number] [place], [place] [phone] Basic Metabolic Panlon 04-06 Anion gap [Moles/Vol] 10 mmol/L Normal 9-18 [facility] Comment on above: Performed By: #### C BCDIF, BMP, CK, LIPB, PSAS1, HBA1C ####[address] [phone] Calcium [Mass/Vol] 10.1 mg/dL Normal 8.5-10.2 [facility] Comment on above: Performed By: #### C BCDIF, BMP, CK, LIPB, PSAS1, HBA1C ####[address] [phone] Chloride [Moles/Vol] 101 mmol/L Normal 97-105 [facility] Comment on above: Performed By: #### C BCDIF, BMP, CK, LIPB, PSAS1, HBA1C ####[address] [phone] CO2 [Moles/Vol] 26 mmol/L Normal 22-30 [facility] Comment on above: Performed By: #### C BCDIF, BMP, CK, LIPB, PSAS1, HBA1C ####[address] [phone] Creatinine [Mass/Vol] 1.00 mg/dL Normal 0.73-1.22 [facility] Comment on above: Performed By: #### C BCDIF, BMP, CK, LIPB, PSAS1, HBA1C ####[address] [phone] eGFR- Amer. >60 Normal [facility] Comment on above: Performed By: #### C BCDIF, BMP, CK, LIPB, PSAS1, HBA1C ####[address] [phone] GFR/1.73 sq M predicted among non-blacks MDRD (S/P/Bld) [Vol rate/Area] mL/min/{1.73_m2} Normal [facility] Comment on above: Result Comment: eGFR (Estimated [...] C BCDIF, BMP, CK, LIPB, PSAS1, HBA1C ####[facility] [place], [place] [phone] Glucose [Mass/Vol] 170 mg/dL High 74-99 [facility] Comment on above: Result Comment: The [place] Diabetes Association (ADA) provides guidance for cutoff [...] Standards of Medical Care in Diabetes 2016, [place] Diabetes Association. Diabetes Care. 2016.39(Suppl 1). Performed By: #### C BCDIF, BMP, CK, LIPB, PSAS1, HBA1C ####[facility] [address], [place] [phone] Potassium [Moles/Vol] 4.2 mmol/L Normal 3.7-5.1 [facility] Comment on above: Performed By: #### C BCDIF, BMP, CK, LIPB, PSAS1, HBA1C ####[facility], [place] [phone] Sodium [Moles/Vol] 137 mmol/L Normal 136-144 [facility] Comment on above: Performed By: #### C BCDIF, BMP, CK, LIPB, PSAS1, HBA1C ####[address] [phone] Urea nitrogen [Mass/Vol] 18 mg/dL Normal 9-24 [facility] Comment on above: Performed By: #### C BCDIF, BMP, CK, LIPB, PSAS1, HBA1C ####[address] [phone] CBC and Differentialon 04-06 Abs Baso 0.04 k/uL Normal <0.11 [facility] Comment on above: Performed By: #### C BCDIF, BMP, CK, LIPB, PSAS1, HBA1C ####[address] [phone] Abs Winn 0.68 k/uL Normal <0.87 [facility] Comment on above: Performed By: #### C BCDIF, BMP, CK, LIPB, PSAS1, HBA1C ####[address] [phone] Abs Neut 2.81 k/uL Normal 1.45-7.50 [facility] Comment on above: Performed By: #### C BCDIF, BMP, CK, LIPB, PSAS1, HBA1C ####[address] [phone] Absolute nRBC <0.01 Normal <0.01 [facility] Comment on above: Performed By: #### C BCDIF, BMP, CK, LIPB, PSAS1, HBA1C ####[address] [phone] Basophils/100 WBC (Bld) 1.0 % Normal [facility] Comment on above: Performed By: #### C BCDIF, BMP, CK, LIPB, PSAS1, HBA1C ####[address] [phone] DTYPE Auto Diff Normal [facility] Comment on above: Performed By: #### C BCDIF, BMP, CK, LIPB, PSAS1, HBA1C ####[address] [phone] Eosinophils (Bld) [#/Vol] 0.11 10*3/uL Normal <0.46 [facility] Comment on above: Performed By: #### C BCDIF, BMP, CK, LIPB, PSAS1, HBA1C ####[place] [address] [place] [phone] Eosinophils/100 WBC (Bld) 2.7 % Normal [facility] Comment on above: Performed By: #### C BCDIF, BMP, CK, LIPB, PSAS1, HBA1C ####[address] [place] [address] [phone] Erythrocyte distribution width (RBC) [Ratio] 13.3 % Normal 11.5-15.0 [facility] Comment on above: Performed By: #### C BCDIF, BMP, CK, LIPB, PSAS1, HBA1C ####[address] [place] [address] [phone] Hematocrit (Bld) [Volume fraction] 40.6 % Normal 39.0-51.0 [facility] Comment on above: Performed By: #### C BCDIF, BMP, CK, LIPB, PSAS1, HBA1C ####[place] [address] [phone] Hemoglobin (Bld) [Mass/Vol] 13.6 g/dL Normal 13.0-17.0 [facility] Comment on above: Performed By: #### C BCDIF, BMP, CK, LIPB, PSAS1, HBA1C ####[address] [phone] Lymphocytes (Bld) [#/Vol] 0.48 10*3/uL Low 1.00-4.00 [facility] Comment on above: Performed By: #### C BCDIF, BMP, CK, LIPB, PSAS1, HBA1C ####[id number] AveCUrsa, [place] [phone] Lymphocytes/100 WBC (Bld) 11.6 % Normal [facility] Comment on above: Performed By: #### C BCDIF, BMP, CK, LIPB, PSAS1, HBA1C ####[address] [place] [address], [place] [phone] MCH (RBC) [Entitic mass] 31.2 pG Normal 26.0-34.0 [facility] Comment on above: Performed By: #### C BCDIF, BMP, CK, LIPB, PSAS1, HBA1C ####[address] [address], [place] [phone] MCHC (RBC) [Mass/Vol] 33.5 g/dL Normal 30.5-36.0 [facility] Comment on above: Performed By: #### C BCDIF, BMP, CK, LIPB, PSAS1, HBA1C ####[address] [place] [address]ClevelEmp[address], [place] [phone] MCV (RBC) [Entitic vol] 93.1 fL Normal 80.0-100.0 [facility] Comment on above: Performed By: #### C BCDIF, BMP, CK, LIPB, PSAS1, HBA1C ####[place] [address], [place] [phone] Monocytes/100 WBC (Bld) 16.5 % Normal [facility] Comment on above: Performed By: #### C BCDIF, BMP, CK, LIPB, PSAS1, HBA1C ####[place] [address]ClevelEmp[address], [place] [phone] Neutrophils/100 WBC (Bld) 68.2 % Normal [facility] [facility] Comment on above: Performed By: #### C BCDIF, BMP, CK, LIPB, PSAS1, HBA1C ####[address] [place], [place] [phone] NRBCs 0.0 /100 WBC Normal 0 [facility] Comment on above: Performed By: #### C BCDIF, BMP, CK, LIPB, PSAS1, HBA1C ####[address] [place], [place] [phone] Platelet mean volume (Bld) [Entitic vol] 11.3 fL Normal 9.0-12.7 [facility] Comment on above: Performed By: #### C BCDIF, BMP, CK, LIPB, PSAS1, HBA1C ####[address] [phone] Platelets (Bld) [#/Vol] 114 10*3/uL Low 150-400 [facility] Comment on above: Performed By: #### C BCDIF, BMP, CK, LIPB, PSAS1, HBA1C ####[address] [phone] RBC (Bld) [#/Vol] 4.36 10*6/uL Normal 4.20-6.00 [facility] Comment on above: Performed By: #### C BCDIF, BMP, CK, LIPB, PSAS1, HBA1C ####[address] [phone] WBC (Bld) [#/Vol] 4.13 10*3/uL Normal 3.70-11.00 [facility] Comment on above: Performed By: #### C BCDIF, BMP, CK, LIPB, PSAS1, HBA1C ####[address] [place], [place] [phone] CKon 04-06-2019 CK [Catalytic activity/Vol] 220 U/L Normal 51-298 [facility] Comment on above: Performed By: #### C BCDIF, BMP, CK, LIPB, PSAS1, HBA1C ####[facility] [address] [place], [place] [phone] CNCNPATEDon 04-06-2019 CNCNPATED Education ([facility]) TYSHAWNVIRGINIA BUNCH ([id number]) 1970 F Date Time Provider Department 04/06/19 12:30 PM VIKTORIA RAINEY (JOSH) [facility] Reason for Visit: Follow Up [171] [...] 1 capsule by mouth once daily. One [place] (Pure Encapsulation) -- fish oil Take 2 capsules by mouth daily with food. Magnesium Glycinate 120mg 3 at night Stress, blood sugar, thyroid/hormones/adrena ls/sleep/energy/toxins/ muscles/constipation/as thma 3 capsules with meals at night MultiThera 1 Capsule (Klaire/Prothera)- multivitamin Take 3 capsules by mouth twice daily with meals. Vitamin D Mendenhall ([email or web address] for KitLocate) Take 1 capsule by mouth daily with food. ubidecarenone Q-10 (CO Q-10) 50 mg capsule Take 1 capsule by mouth once daily. No current facility-administered medications on file prior to visit. Past Medical History: No past medical history on file. PREVIOUS NUTRITION ASSESSMENT Class Topic: Functional Nutrition and Elimination Diet Introduction Education Materials: IFM Elimination Diet Food List, Weekly Corporate Trainer and Recipes, Comprehensive Guide, Adaptable Meals, Dirty [...] get back into full remission since. My rn appeals is recommending Azathioprine, but I am very [...] Yes, 01/20 related to work. Going to [employer] therapy. ? 48 year old female presents [...] Organic Peanuts or Peanut Butter (2 Tbsp) -[place] - Organic corn chip or corn tortilla [...] Peña RD, JOSH 04/06/2019 12:56 PM Signed [facility] MEDICINE FOLLOW UP NUTRITION INSTRUCTIONS We recommend [...] Organic Peanuts or Peanut Butter (2 Tbsp) -[place] - Organic corn chip or corn tortilla [...] Supplements: Supplements can be ordered from the [facility]'s Online Store: [email or web address]. [employer]/ Directions to create a new account can be found in the New Patient Packet ? You will need to create an account on the store website, using your Medical Record Number (MRN) and Provider's name. ? Provider Code: '[facility]' PATIENT INSTRUCTIONS: To be completed before next visit: Food Diaries/Reintroduction of Foods Tracker: Please complete your food logs and bring them back to you follow-up nutrition appointment. Submit your food diaries to the Turbine Attendant when you are roomed during your next visit. How to Contact Your Functional Medicine Team (Open M-F 8am-5pm): 1. Safer Minicabst is the BEST form of communication to reach the Functional Medicine Team, see test results and request refills. Please allow 72 business hours for a response. Directions for signing up are included in your New Patient Folder. (Or you can go to [email or web address]) 2. For nutrition related questions or concerns, [employer] message your physician and include Attn: Viktoria at the top of the message. Other instructions from your clinician: [facility]CTIONAL [facility] FOLLOW UP NUTRITION INSTRUCTIONS We recommend [...] Organic Peanuts or Peanut Butter (2 Tbsp) -[place] - Organic corn chip or corn tortilla [...] Supplements: Supplements can be ordered from the [facility]'s Online Store: [email or web address]/ Directions to create a new account can be found in the New Patient Packet ? You will need to create an account on the store website, using your Medical Record Number (MRN) and Provider's name. ? Provider Code: '[facility]' PATIENT INSTRUCTIONS: To be completed before next visit: Food Diaries/Reintroduction of Foods Tracker: Please complete your food logs and bring them back to you follow-up nutrition appointment. Submit your food diaries to the Turbine Attendant when you are roomed during your next visit. How to Contact Your Functional Medicine Team (Open M-F 8am-5pm): 1. Safer Minicabst is the BEST form of communication to reach the Functional Medicine Team, see test results and request refills. Please allow 72 business hours for a response. Directions for signing up are included in your New Patient Folder. (Or you can go to [email or web address]) 2. For nutrition related questions or concerns, [employer] message your physician and include Attn: Viktoria [...] Encounter Status:Closed by VIKTORIA RAINEY on 04/06/19 [facility] CNOVon 04-06-2019 [facility] VIRGINIA VILLAGRAN ([id number]) 1970 F Date Time Provider Department 04/06/19 11:30 AM AMY REED [facility] During your visit today, we recorded [...] 1 capsule by mouth once daily. One [place] (Pure Encapsulation) -- fish oil Take 2 capsules by mouth daily with food. Magnesium Glycinate 120mg 3 at night Stress, blood sugar, thyroid/hormones/adrena ls/sleep/energy/toxins/ muscles/constipation/as thma 3 capsules with meals at night MultiThera 1 Capsule (Klaire/Prothera)- multivitamin Take 3 capsules by mouth twice daily with meals. Vitamin D Mendenhall (mobifriends) Take 1 capsule by mouth daily with [...] file Gets together: Not on file Attends gnosticism service: Not on file Active member of [...] Get Back Into Full Remission Since. My Radio Aerial Installer Is Recommending Azathioprine, But I Am Very Reluctant To Take A Med That Decreases My Natural Immunity. I Want To Find Out If It Can Be Controlled In A Healthier Manner. When Was The Last Time You [place] Well? : Last Time In Full Remission [...] was good, grew up [place] in [place], well water, [place] town ? 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 Bioelectrical Impedance Analysis Results by [employer]. Recent Results from: 02/18/19 at 8:53 AM [...] Latest Ref Range: 3.7 - 40.7 7.1 [place]-6/[place]-3 Ratio Latest Ref Range: 3.7 - 14.4 5.5 [place]-3 Total Latest Units: % by wt 6.7 [place] EPA Latest Ref Range: 0.2 - 2.3 % by wt 1.5 [place] DPA Latest Ref Range: 0.8 - 1.8 % by wt 1.4 [place] DHA Latest Ref Range: 1.4 - 5.1 % by wt 3.8 [place]-6 Total Latest Units: % by wt 36.8 [...] Thumb pain Today's Plan/Instructions/Resou rces: Labs: 1. [place] check was great-so during flare use 1-2 [...] armour 15mg daily, 2. Thyroid glandular from [employer] 3 per day, 3. 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 (VSL#3) 450 billion cell pwpk Sig: Take 1 Packet by mouth once daily. Dispense: 30 Packet Refill: 5 I recommend the supplements from the [facility] Trading Metrics at [email or web address] . Continue: Current Outpatient Medications: Zuncvdrg9-Hobfde6-Dpqpx therm. (VSL#3) 450 billion cell pwpk Take [...] 1 capsule by mouth once daily. One [place] (Pure Encapsulation) -- fish oil Take 2 capsules by mouth daily with food. Magnesium Glycinate 120mg 3 at night Stress, blood sugar, thyroid/hormones/adrena ls/sleep/energy/toxins/ muscles/constipation/as thma 3 capsules with meals at night MultiThera 1 Capsule (Klaire/Prothera)- multivitamin Take 3 capsules by mouth twice daily with meals. Vitamin D [place] (mobifriends) Take 1 capsule by mouth daily with [...] Thumb pain Today's Plan/Instructions/Resou rces: Labs: 1. [place] check was great-so during flare use 1-2 [...] armour 15mg daily, 2. Thyroid glandular from [employer] 3 per day, 3. 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 (VSL#3) 450 billion cell pwpk Sig: Take 1 Packet by mouth once daily. Dispense: 30 Packet Refill: 5 I recommend the supplements from the [facility] [employer] Metrics at [email or web address] . Continue: Current Outpatient Medications: Pjmzyarj3-Mzejvx3-Bkvpo therm. (VSL#3) 450 billion cell pwpk Take [...] 1 capsule by mouth once daily. One [place] (Pure Encapsulation) -- fish oil Take 2 capsules by mouth daily with food. Magnesium Glycinate 120mg 3 at night Stress, blood sugar, thyroid/hormones/adrena ls/sleep/energy/toxins/ muscles/constipation/as thma 3 capsules with meals at night MultiThera 1 Capsule (Klaire/Prothera)- multivitamin Take 3 capsules by mouth twice daily with meals. Vitamin D [place] (mobifriends) Take 1 capsule by mouth daily with [...] Thumb pain Today's Plan/Instructions/Resou rces: Labs: 1. [place] check was great-so during flare use 1-2 [...] armour 15mg daily, 2. Thyroid glandular from [employer] 3 per day, 3. Thyroid support (THYROSOL/THyroscin) [...] -stay on S [place] daily -consider acupuncture [facility] GI Doctors: Dr Cyndy Maynard Medications/Supplements Recommended: Medication orders placed this encounter Bjcuebuh0-Qlxgzb2-Onqnx therm. (VSL#3) 450 billion cell pwpk Sig: Take 1 Packet by mouth once daily. Dispense: 30 Packet Refill: 5 I recommend the supplements from the [facility] Trading [employer]rics at [email or web address] . Continue: Current Outpatient Medications: Bbestwbu6-Iffipq9-Pppwx therm. (VSL#3) 450 billion cell pwpk Take [...] 1 capsule by mouth once daily. One [place] (Pure Encapsulation) -- fish oil Take 2 capsules by mouth daily with food. Magnesium Glycinate 120mg 3 at night Stress, blood sugar, thyroid/hormones/adrena ls/sleep/energy/toxins/ muscles/constipation/as thma 3 capsules with meals at night MultiThera 1 Capsule (Klaire/Prothera)- multivitamin Take 3 capsules by mouth twice daily with meals. Vitamin D [place] ([email or web address].com for KitLocate) Take 1 capsule by mouth daily with [...] by AMY REED MD on 04/06/19 Normal [facility] Hemoglobin A1con 04-06-2019 HbA1c (Bld) [Mass fraction] 7.1 % High 4.3-5.6 [facility] Comment on above: Result Comment: Amer ican Diabetes Association guidelines indicate that patients with HgbA1c in the range 5.7-6.4% are at increased risk for development of diabetes, and intervention by lifestyle modification may be beneficial. HgbA1c greater or equal to 6.5% is considered diagnostic of diabetes. Performed By: #### C BCDIF, BMP, CK, LIPB, PSAS1, HBA1C ####[address] [phone] HbA1c (Bld) [Mass fraction] 157 mg/dL Normal [facility] Comment on above: Result Comment: eAG: (Estimated average glucose) is a calculated value from HgbA1c and is branch service representative of the average blood glucose level in the last 2-3 month period. Performed By: #### C BCDIF, BMP, CK, LIPB, PSAS1, HBA1C ####[address] [phone] Lipid Panel, [place] 019 Cholesterol [Mass/Vol] 177 mg/dL Normal <200 [facility] Comment on above: Result Comment: <200 mg/dL, Desirable 200-239 mg/dL, Borderline high >239 mg/dL, High Performed By: #### C BCDIF, BMP, CK, LIPB, PSAS1, HBA1C ####[address] [phone] Cholesterol in HDL [Mass/Vol] 35 mg/dL Low >39 [facility] Comment on above: Result Comment: 40-5 9 mg/dL, Acceptable >59 mg/dL, High: Negative risk factor for coronary heart disease <40 mg/dL, Low: Positive risk factor for coronary heart disease Performed By: #### C BCDIF, BMP, CK, LIPB, PSAS1, HBA1C ####[id number] [place], [place] [phone] Cholesterol in LDL [Mass/Vol] 91 mg/dL Normal <100 [facility] Comment on above: Result Comment: <100 mg/dL, Optimal 100-129 mg/dL, Near optimal/above optimal 130-159 mg/dL, Borderline high 160-189 mg/dL, High >189 mg/dL, Very high Secondary prevention optimal LDL Cholesterol levels are recommended to be < 70 mg/dL Performed By: #### C BCDIF, BMP, CK, LIPB, PSAS1, HBA1C ####[address] [phone] Fasting Time 12 hrs Normal [facility] Comment on above: Performed By: #### C BCDIF, BMP, CK, LIPB, PSAS1, HBA1C ####[address] [phone] LDL:HDL Ratio 2.60 High <2.54 [facility] Comment on above: Result Comment: Refe rence: 1. National Cholesterol Education Program ATP III Guideline At-A-Glance Quick Desk Reference: National Heart, Lung, and Blood [place]. National Institutes of Health. 2001: NIH Publication No. 01-3305. 2. An International Atherosclerosis Society position paper: global recommendations for the management of dyslipidemia: executive summary, Atherosclerosis. 2014: 232(2):410-413. Performed By: #### C BCDIF, BMP, CK, LIPB, PSAS1, HBA1C ####[address] [phone] Non HDL Cholesterol 142 mg/dL High <130 [facility] Comment on above: Result Comment: <130 mg/dL, Optimal 130-159 mg/dL, Near optimal/above optimal 160-189 mg/dL, Borderline high 190-219 mg/dL, High >219 mg/dL, Very high Secondary prevention optimal non HDL Cholesterol levels are recommended to be < 100 mg/dL Performed By: #### C BCDIF, BMP, CK, LIPB, PSAS1, HBA1C ####[id number] [place], [place] [phone] TC:HDL Ratio 5.06 Normal <5.10 [facility] Comment on above: Performed By: #### C BCDIF, BMP, CK, LIPB, PSAS1, HBA1C ####[facility] [place], [place] [phone] Triglyceride [Mass/Vol] 255 mg/dL High <150 [facility] Comment on above: Result Comment: <150 mg/dL, Normal 150-199 mg/dL, Borderline high 200-499 mg/dL, High >499 mg/dL, Very high Performed By: #### C BCDIF, BMP, CK, LIPB, PSAS1, HBA1C ####[address] [phone] VLDL Cholesterol 51 mg/dL High <30 [facility] Comment on above: Performed By: #### C BCDIF, BMP, CK, LIPB, PSAS1, HBA1C ####[id number] [place], [place] [phone] PROGRESSon 04-06-2019 PROGRESS HNO ID: [id number] Author: Viktoria Rios) JOSH Rainey Service: ? [...] 1 capsule by mouth once daily. One [place] (Pure Encapsulation) -- fish oil Take 2 capsules by mouth daily with food. Magnesium Glycinate 120mg 3 at night Stress, blood sugar, thyroid/hormones/adrena ls/sleep/energy/toxins/ muscles/constipation/as thma 3 capsules with meals at night MultiThera 1 Capsule (Klaire/Prothera)- multivitamin Take 3 capsules by mouth twice daily with meals. Vitamin D [place] (mobifriends) Take 1 capsule by mouth daily with food. ubidecarenone Q-10 (CO Q-10) 50 mg capsule Take 1 capsule by mouth once daily. No current facility-administered medications on file prior to visit. Past Medical History: No past medical history on file. PREVIOUS NUTRITION ASSESSMENT Class Topic: Functional Nutrition and Elimination Diet Introduction Education Materials: IFM Elimination Diet Food List, Weekly Corporate Trainer and Recipes, Comprehensive Guide, Adaptable Meals, Dirty [...] get back into full remission since. My rn appeals is recommending Azathioprine, but I am very [...] Organic Peanuts or Peanut Butter (2 Tbsp) -[place] - Organic corn chip or corn tortilla [...] (30 minutes) Signed by: Viktoria Rainey RD [facility] PROGRESS HNO ID: [id number] Author: Amy Reed Service: ? Author Type: [...] 1 capsule by mouth once daily. One [place] (Pure Encapsulation) -- fish oil Take 2 capsules by mouth daily with food. Magnesium Glycinate 120mg 3 at night Stress, blood sugar, thyroid/hormones/adrena ls/sleep/energy/toxins/ muscles/constipation/as thma 3 capsules with meals at night MultiThera 1 Capsule (Klaire/Prothera)- multivitamin Take 3 capsules by mouth twice daily with meals. Vitamin D [place] (mobifriends) Take 1 capsule by mouth daily with [...] file Gets together: Not on file Attends gnosticism service: Not on file Active member of [...] Get Back Into Full Remission Since. My Radio Aerial Installer Is Recommending Azathioprine, But I Am Very Reluctant To Take A Med That Decreases My Natural Immunity. I Want To Find Out If It Can Be Controlled In A Healthier Manner. When Was The Last Time You [place] Well? : Last Time In Full Remission [...] was good, grew [place], [place], [place] town ? 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 Bioelectrical Impedance Analysis Results by [employer] Recent Results from: 02/18/19 at 8:53 [...] Latest Ref Range: 3.7 - 40.7 7.1 [place]-6/[place]-3 Ratio Latest Ref Range: 3.7 - 14.4 5.5 [place]-3 Total Latest Units: % by wt 6.7 [place] EPA Latest Ref Range: 0.2 - 2.3 % by wt 1.5 [place] DPA Latest Ref Range: 0.8 - 1.8 % by wt 1.4 [place] DHA Latest Ref Range: 1.4 - 5.1 % by wt 3.8 [place]-6 Total Latest Units: % by wt 36.8 [...] Thumb pain Today's Plan/Instructions/Resou rces: Labs: 1. [place] check was great-so during flare use 1-2 [...] armour 15mg daily, 2. Thyroid glandular from [employer] 3 per day, 3. Thyroid support (THYROSOL/THyroscin) [...] -stay on S [place] daily -consider acupuncture [facility] GI Doctors: Dr Cyndy Maynard Medications/Supplements Recommended: Medication orders placed this encounter Ujhzdejv0-Gopvmb0-Ruudr therm. (VSL#3) 450 billion cell pwpk Sig: Take 1 Packet by mouth once daily. Dispense: 30 Packet Refill: 5 I recommend the supplements from the [facility] Trading Metrics at [email or web address] . Continue: Current Outpatient Medications: Ywbdllwh4-Hpxlfi9-Vjiqk therm. (VSL#3) 450 billion cell pwpk Take [...] 1 capsule by mouth once daily. One [place] (Pure Encapsulation) -- fish oil Take 2 capsules by mouth daily with food. Magnesium Glycinate 120mg 3 at night Stress, blood sugar, thyroid/hormones/adrena ls/sleep/energy/toxins/ muscles/constipation/as thma 3 capsules with meals at night MultiThera 1 Capsule (Klaire/Prothera)- multivitamin Take 3 capsules by mouth twice daily with meals. Vitamin D [place] (mobifriends) Take 1 capsule by mouth daily with [...] history, labs. Amy Reed MD, MPH Normal [facility] ELVA by IFA w/Reflexon 2018 ELVA Pattern Negative Normal [facility] Comment on above: Performed By: #### H OMCYS, FREET3, FT4, HBA1C, INSULN, GGT, HSCRP, TRANSF, VITD, FERR, TSH, MAGRBC, ZINC, ANAIFR, MMA, COMP4A ####[address] [phone] ELVA Titer Negative Normal Negative [facility] Comment on above: Result Comment: Norm al range : negative at <1:80 serum dilution. Performed By: #### H OMCYS, FREET3, FT4, HBA1C, INSULN, GGT, HSCRP, TRANSF, VITD, FERR, TSH, MAGRBC, ZINC, ANAIFR, MMA, COMP4A ####[id number] [place], [place] [phone] Nuclear Ab IF (S) [Titer] Negative Normal Negative [facility] Comment on above: Result Comment: Norm al range : negative at <1:80 serum dilution. Approximately 6% of patients with connective tissue diseases with low positive EIA values are negative by IFA. Recommend follow-up with specific antinuclear antibodies if clinically indicated. 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 Patient received education and participated [...] Additional support needed: Phone Consultations with Health Switch Adjuster in 2-3 weeks Time Spent with patient: 30 minutes Consult Billing Type: 1 increment (30 minutes) Number of Increments: 1 (30 minutes) Signed by: Maci Vega RDN, LD, IBCLC Health Switch Adjuster Primary Visit Diagnosis:Encounter for person encountering health [...] Status:Closed by MACI VEGA on 02/18/19 Normal [facility] TYSHAWNVIRGINIA BUNCH ([id number]) 1970 F Date Time Provider Department 02/18/19 10:30 AM LENY MASON (RD) [facility] Reason for Visit: Patient Education [91] Reason For Visit History Recorded Progress Notes: Leny Mason RD 02/18/2019 11:45 AM Signed [facility] Nutrition Therapy: Initial Assessment (Group) Patient Name: Virginia Villagran Class Topic: Functional Nutrition and Elimination Diet Introduction Education Materials: IFM Elimination Diet Food List, Weekly Corporate Trainer and Recipes, Comprehensive Guide, Adaptable Meals, Dirty [...] get back into full remission since. My rn appeals is recommending Azathioprine, but I am very [...] Yes, 01/20 related to work. Going to [employer] therapy. 48 year old female presents for [...] Encounter Status:Closed by LENY MASON on 02/18/19 [facility] CNOVliberty 02-18-2019 CNOV Office Visit ([facility] ) TYSHAWNVIRGINIA Silver ([id number]) 1970 F Date Time Provider Department 02/18/19 9:00 AM AMY REED During your visit today, we recorded the following information about you: Pulse Blood pressure Weight Height 89/minute 117/83 67.5 kg 1.676 m Shilokarthik Gregorio Saucedo 02/18/2019 8:58 AM Signed Bioelectrical Impedance Analysis Results by [employer] Recent Results from: 02/18/19 at 8:53 [...] file Gets together: Not on file Attends gnosticism service: Not on file Active member of [...] Get Back Into Full Remission Since. My Radio Aerial Installer Is Recommending Azathioprine, But I Am Very Reluctant To Take A Med That Decreases My Natural Immunity. I Want To Find Out If It Can Be Controlled In A Healthier Manner. When Was The Last Time You [place] Well? 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 Bioelectrical Impedance Analysis Results by [employer] Recent Results from: 02/18/19 at 8:53 [...] to clean the air. You can visit www.Connotate to learn more. If you wish to buy one from them, you can use the ReefEdge partner code 189. Other ways to improve air quality are to keep windows open even for a few minutes to improve air quality, changing your HVAC filter more often and using a higher grade (10 is preferred). You can also open the windows to let the air circulate. Outside air generally is suede cleaner than indoor air. 4. Drink water: [...] L glutamine C Probiotics D. Magnesium E. [place] 3 F. Vitamin d with K G. [...] twice daily with meals. Refill: 0 One [place] (Pure Encapsulation) -- fish oil Sig: Take [...] Dispense: 60 capsule Refill: 0 Vitamin D [place] (mobifriends) Sig: Take 1 capsule by mouth daily with food. I recommend the supplements from the [facility] [employer] at [email or web address]/ . Continue: Current Outpatient Medications: L-Glutamine Powder 5mg/tsp (Pure Encapsulations) gut healing/heart burn 5 grams twice per day Digestive Enzymes Ultra 180 ct. (Pure Encapsulations) supports digestion of food 1-2 capsules with meals Saccharomyces Boulardii (Klaire/Prothera) good yeast (FRIDGE) Take 2 capsules by mouth once daily. Ther-Biotic Complete Capsules (Klaire/Prothera) probiotic (FRIDGE) Take 1 capsule by mouth once daily. One [place] (Pure Encapsulation) -- fish oil Take 2 capsules by mouth daily with food. Magnesium Glycinate 120mg 3 at night Stress, blood sugar, thyroid/hormones/adrena ls/sleep/energy/toxins/ muscles/constipation/as thma 3 capsules with meals at night MultiThera 1 Capsule (Klaire/Prothera)- multivitamin Take 3 capsules by mouth twice daily with meals. Vitamin D [place] (mobifriends) Take 1 capsule by mouth daily with food. ubidecarenone Q-10 (CO Q-10) 50 mg capsule Take 1 capsule by mouth once daily. No current facility-administered medications for this visit. Stop: There are no discontinued medications. Functional Nutrition: Elimination Diet with no grains, no legumes, no starchy veggies Future Plans: Follow up: Please schedule a follow up visit with the following Caregivers: Provider: 8weeks, Imaging Technologist: 8 weeks and Health Switch Adjuster: 2 weeks LIFESTYLE PRESCRIPTION Sleep: Sleep goal [...] Melatonin which promote sleep. Buy this on HelpMeNow:AMDL [id number] Laser Enhancement Glasses, about $8 -Listen to calming meditation and sleep music prior to bed. Visit [email or web address] or use OpenGamma music available for free on You Tube. [...] one of the Heart Math booklets off Superbly that fits your 'go to' emotion - [...] Oh Mindfulness CD or MP3 available on HelpMeNow or a free lisbet: headspace or calm. [...] Health Coaching: Please consider scheduling with our [facility] Functional Medicine health coaches for a phone or virtual visit for accountability, goal setting and help with behavior supervisor records change the next 6-8 weeks to be successful with your goals. [phone]. During the next 6-8 weeks you'll be working on your diet plan discussed with our department assistant, allowing for gentle detoxification and decreasing inflammation - while we are gathering your lab results and combining those with your complete history to formulate a very personalized treatment plan. LAB results: Due to the complexity of the testing performed, we are not able to review labs via Booodlhart or over the phone, but please know, [...] Also make sure to schedule with the department assistant (this will not happen automatically) as you [...] appointment. You can access them on the LifeBlinx website and it can be beneficial if you review them prior to your next visit. [email or web address]. Read about NutrEval if this was ordered. We will go over a lot of information during your follow up visit - so please be well-rested and you may want to bring someone with you, if possible. Also make sure to schedule with the department assistant (this will not happen automatically). Time spent [...] to clean the air. You can visit www.Connotate to learn more. If you wish to [...] the air circulate. Outside air generally is suede cleaner than indoor air. 4. Drink water: [...] L glutamine C Probiotics D. Magnesium E. [place] 3 F. Vitamin d with K G. [...] twice daily with meals. Refill: 0 One [place] (Pure Encapsulation) -- fish oil Sig: Take [...] Dispense: 60 capsule Refill: 0 Vitamin D [place] ([employer]) Sig: Take 1 capsule by mouth daily with food. I recommend the supplements from the [facility] Store at [email or web address] . Continue: Current Outpatient Medications: L-Glutamine Powder 5mg/tsp (Pure Encapsulations) gut healing/heart burn 5 grams twice per day Digestive Enzymes Ultra 180 ct. (Pure Encapsulations) supports digestion of food 1-2 capsules with meals Saccharomyces Boulardii (Klaire/Prothera) good yeast (FRIDGE) Take 2 capsules by mouth once daily. Ther-Biotic Complete Capsules (Klaire/Prothera) probiotic (FRIDGE) Take 1 capsule by mouth once daily. One [place] (Pure Encapsulation) -- fish oil Take 2 capsules by mouth daily with food. Magnesium Glycinate 120mg 3 at night Stress, blood sugar, thyroid/hormones/adrena ls/sleep/energy/toxins/ muscles/constipation/as thma 3 capsules with meals at night MultiThera 1 Capsule (Klaire/Prothera)- multivitamin Take 3 capsules by mouth twice daily with meals. Vitamin D [place] (mobifriends) Take 1 capsule by mouth daily with food. ubidecarenone Q-10 (CO Q-10) 50 mg capsule Take 1 capsule by mouth once daily. No current facility-administered medications for this visit. Stop: There are no discontinued medications. Functional Nutrition: Elimination Diet with no grains, no legumes, no starchy veggies Future Plans: Follow up: Please schedule a follow up visit with the following Caregivers: Provider: 8weeks, Imaging Technologist: 8 weeks and Health Switch Adjuster: 2 weeks LIFESTYLE PRESCRIPTION Sleep: Sleep goal [...] Melatonin which promote sleep. Buy this on HelpMeNow:WILVER [id number] Laser Enhancement Glasses, about $8 -Listen to calming meditation and sleep music prior to bed. Visit [email or web address] or use OpenGamma music available for free on You Tube. [...] one of the Heart Math booklets off Superbly that fits your 'go to' emotion - [...] Oh Mindfulness CD or MP3 available on HelpMeNow or a free lisbet: headspace or calm. [...] Health Coaching: Please consider scheduling with our [facility] Functional Medicine health coaches for a phone or virtual visit for accountability, goal setting and help with behavior supervisor records change the next 6-8 weeks to be successful with your goals. [phone]. During the next 6-8 weeks you'll be working on your diet plan discussed with our department assistant, allowing for gentle detoxification and decreasing inflammation [...] Also make sure to schedule with the department assistant (this will not happen automatically) as you [...] appointment. You can access them on the [employer] website and it can be beneficial if you review them prior to your next visit. [email or web address]. Read about NutrEval if this was ordered. We will go over a lot of information during your follow up visit - so please be well-rested and you may want to bring someone with you, if possible. Also make sure to schedule with the department assistant (this will not happen automatically). Referring Provider: [...] hyperlipidemia [E78.2] Order(s):FERRITIN BLD [SQFERR] Order #: [id number] FUTURE TRANSFERRIN BLD [SQTRANSF] Order #: [id number] FUTURE TSH BLD [SQTSH] Order #: [id number] FUTURE T4 FREE/FREE THYROX [SQFT4] Order #: [id number] FUTURE T3 FREE BLD [SQFREET3] Order #: [id number] FUTURE GGT BLD [SQGGT] Order #: [id number] FUTURE HOMOCYSTEINE [SQHOMCYS] Order #: [id number] FUTURE C-REACTIVE ULTRA SEN [SQHSCRP] Order #: [id number] FUTURE INSULIN ASSAY BLOOD [SQINSULN] Order #: [id number] FUTURE HGB A1C [YAPUS1S] Order #: [id number] FUTURE MAGNESIUM RBC [SQMAGRBC] Order #: [id number] FUTURE ZINC BLD [SQZINC] Order #: [id number] FUTURE METHYLMALONIC ACID [SQMMA] Order #: [id number] FUTURE VITAMIN D 25 HYDROXY [SQVITD] Order #: [id number] FUTURE ELVA BY IFA WITH REFLEX [SQANAIFR] Order #: [id number] FUTURE COMPLEMENT COMPONENT 4A [AIKCFG8N] Order #: [id number] FUTURE OMEGACHECK [SQOMEGAC] Order #: [id number] FUTURE L-Glutamine Powder 5mg/tsp (Pure Encapsulations) gut healing/heart burn5 grams twice per dayDisp: Rfl: 0 Digestive Enzymes Ultra 180 ct. (Pure Encapsulations) supports digestion of food1-2 capsules with mealsDisp: Rfl: 0 Saccharomyces Boulardii (Klaire/Prothera) good yeast (FRIDGE)Take 2 capsules by mouth once daily.Disp: Rfl: 0 Ther-Biotic Complete Capsules (Klaire/Prothera) probiotic (FRIDGE)Take 1 capsule by mouth once daily.Disp: Rfl: 0 One [place] (Pure Encapsulation) -- fish oilTake 2 capsules by mouth daily with food.Disp: Rfl: 0 Magnesium Glycinate 120mg 3 at night Stress, blood sugar, thyroid/hormones/adrena ls/sleep/energy/toxins/ muscles/constipation/as t- hma3 capsules with meals at nightDisp: Rfl: 0 MultiThera 1 Capsule (Klaire/Prothera)- multivitaminTake 3 capsules by mouth twice daily with meals.Disp: Rfl: 0 Vitamin D [place] (mobifriends)Take 1 capsule by mouth daily with food.Disp: Rfl: ubidecarenone Q-10 (CO Q-10) 50 mg capsuleTake 1 capsule by mouth once daily.Disp: 60 capsuleRfl: 0 FM GI EFFECTS, 3 STOOL SPECIMENS [SQFMGI] Order #: [id number] FUTURE Prescriptions as of 02/18/2019 Sig: OTC [...] to clean the air. You can visit www.Connotate to learn more. If you wish to [...] the air circulate. Outside air generally is suede cleaner than indoor air. 4. Drink water: [...] L glutamine C Probiotics D. Magnesium E. [place] 3 F. Vitamin d with K G. [...] twice daily with meals. Refill: 0 One [place] (Pure Encapsulation) -- fish oil Sig: Take [...] Dispense: 60 capsule Refill: 0 Vitamin D [place] ([employer]s for [employer]) Sig: Take 1 capsule by mouth daily with food. I recommend the supplements from the [facility] Store at [email or web address]/ . Continue: Current Outpatient Medications: L-Glutamine Powder 5mg/tsp (Pure Encapsulations) gut healing/heart burn 5 grams twice per day Digestive Enzymes Ultra 180 ct. (Pure Encapsulations) supports digestion of food 1-2 capsules with meals Saccharomyces Boulardii (Klaire/Prothera) good yeast (FRIDGE) Take 2 capsules by mouth once daily. Ther-Biotic Complete Capsules (Klaire/Prothera) probiotic (FRIDGE) Take 1 capsule by mouth once daily. One [place] (Pure Encapsulation) -- fish oil Take 2 capsules by mouth daily with food. Magnesium Glycinate 120mg 3 at night Stress, blood sugar, thyroid/hormones/adrena ls/sleep/energy/toxins/ muscles/constipation/as thma 3 capsules with meals at night MultiThera 1 Capsule (Klaire/Prothera)- multivitamin Take 3 capsules by mouth twice daily with meals. Vitamin D [place] (mobifriends) Take 1 capsule by mouth daily with food. ubidecarenone Q-10 (CO Q-10) 50 mg capsule Take 1 capsule by mouth once daily. No current facility-administered medications for this visit. Stop: There are no discontinued medications. Functional Nutrition: Elimination Diet with no grains, no legumes, no starchy veggies Future Plans: Follow up: Please schedule a follow up visit with the following Caregivers: Provider: 8weeks, Imaging Technologist: 8 weeks and Health Switch Adjuster: 2 weeks LIFESTYLE PRESCRIPTION Sleep: Sleep goal [...] Melatonin which promote sleep. Buy this on HelpMeNow:AMDL [id number] Laser Enhancement Glasses, about $8 -Listen to calming meditation and sleep music prior to bed. Visit [email or web address] or use TELiBrahmasync music available for free on You Tube. [...] one of the Heart Math booklets off Superbly that fits your 'go to' emotion - [...] Oh Mindfulness CD or MP3 available on HelpMeNow or a free lisbet: headspace or calm. [...] Health Coaching: Please consider scheduling with our [facility] Functional Medicine health coaches for a phone or virtual visit for accountability, goal setting and help with behavior supervisor records change the next 6-8 weeks to be successful with your goals. [phone]. During the next 6-8 weeks you'll be working on your diet plan discussed with our department assistant, allowing for gentle detoxification and decreasing inflammation [...] Also make sure to schedule with the department assistant (this will not happen automatically) as you [...] appointment. You can access them on the [employer] website and it can be beneficial if you review them prior to your next visit. [email or web address]. Read about NutrEval if this was ordered. We will go over a lot of information during your follow up visit - so please be well-rested and you may want to bring someone with you, if possible. Also make sure to schedule with the department assistant (this will not happen automatically). Visit Notes: >> Lul Perkins Ma Mindy Feb 18, 2019 8:56 AM Status: Signed Bioelectrical Impedance Analysis Results by [employer] Recent Results from: 02/18/19 at 8:53 [...] by AMY REED MD on 02/18/19 Normal [facility] Complement Comp 4Aon 019 Complement 4A Level 2732 ng/mL Normal 0-2830 [facility] Comment on above: Result Comment: (NOT E) This test uses a kit/reagent designated by the binder caser as for research use, not for clinical use. The performance characteristics of this test have been validated by [facility]. It has not been cleared or approved by the U.S. Food and Drug Administration. The results are not intended to be used as the sole means for clinical diagnosis or patient management decisions. This laboratory is certified under the Clinical Laboratory Improvement Amendments of 1988 (CLIA-88) as qualified to perform high complexity clinical laboratory testing. Testing performed at [facility] [address] [address] CLIA [id number] Performed By: #### H OMCYS, FREET3, FT4, HBA1C, INSULN, GGT, HSCRP, TRANSF, VITD, FERR, TSH, MAGRBC, ZINC, ANAIFR, MMA, COMP4A ####[facility] [place], [place] [phone] Ferritinon 02-18-2019 Ferritin [Mass/Vol] 363.0 ng/mL High 14.7-205.1 [facility] Comment on above: Performed By: #### H OMCYS, FREET3, FT4, HBA1C, INSULN, GGT, HSCRP, TRANSF, VITD, FERR, TSH, MAGRBC, ZINC, ANAIFR, MMA, COMP4A ####[facility] [place], [place] [phone] Free T3on 02-18-2019 Free T3 [Mass/Vol] 2.4 pg/mL Normal 2.3-4.1 [facility] Comment on above: Performed By: #### H OMCYS, FREET3, FT4, HBA1C, INSULN, GGT, HSCRP, TRANSF, VITD, FERR, TSH, MAGRBC, ZINC, ANAIFR, MMA, COMP4A #### [facility] [address] [place], [place] [address] Free T4on 02-18-2019 Free T4 [Mass/Vol] 1.2 ng/dL Normal 0.9-1.7 [facility] Comment on above: Performed By: #### H OMCYS, FREET3, FT4, HBA1C, INSULN, GGT, HSCRP, TRANSF, VITD, FERR, TSH, MAGRBC, ZINC, ANAIFR, MMA, COMP4A #### [facility] [place] [id number] GGTon 02-18-2019 Gamma glutamyl transferase [Catalytic activity/Vol] 15 U/L Normal 6-46 [facility] Comment on above: Performed By: #### H OMCYS, FREET3, FT4, HBA1C, INSULN, GGT, HSCRP, TRANSF, VITD, FERR, TSH, MAGRBC, ZINC, ANAIFR, MMA, COMP4A #### [place] [id number] Hemoglobin A1con 02-18-2019 HbA1c (Bld) [Mass fraction] 5.4 % Normal 4.3-5.6 [facility] Comment on above: Result Comment: Amer ican [...] TSH, MAGRBC, ZINC, ANAIFR, MMA, COMP4A #### [place] [address] [place] [id number] HbA1c (Bld) [Mass fraction] 108 mg/dL Normal [facility] Comment on above: Result Comment: eAG: (Estimated average glucose) is a calculated value from HgbA1c and is branch service representative of the average blood glucose level in the last 2-3 month period. Performed By: #### H OMCYS, FREET3, FT4, HBA1C, INSULN, GGT, HSCRP, TRANSF, VITD, FERR, TSH, MAGRBC, ZINC, ANAIFR, MMA, COMP4A #### [facility] [place] [phone] Homocysteineon 02-18-2019 Homocysteine 7.6 umol/L Normal <15.1 [facility] Comment on above: Performed By: #### H OMCYS, FREET3, FT4, HBA1C, INSULN, GGT, HSCRP, TRANSF, VITD, FERR, TSH, MAGRBC, ZINC, ANAIFR, MMA, COMP4A #### [facility] [address] [place], [place] [address] Insulinon 02-18-2019 Insulin 3.0 mU/L Normal 3.0-25.0 [facility] Comment on above: Performed By: #### H OMCYS, FREET3, FT4, HBA1C, INSULN, GGT, HSCRP, TRANSF, VITD, FERR, TSH, MAGRBC, ZINC, ANAIFR, MMA, COMP4A #### [facility] [address] [place], [place] [address] Magnesium, RBCon 02-18-2019 Magnesium RBC 4.0 mg/dL Normal 4.0-6.5 [facility] Comment on above: Result Comment: This test was developed and its performance characteristics determined by [facility], [facility] [place] ([facility]). It has not been cleared or approved by the FDA. [facility] is regulated under CLIA as qualified to perform high complexity testing. This test is used for clinical purposes. It should not be regarded as investigational or for research. Performed By: #### H OMCYS, FREET3, FT4, HBA1C, INSULN, GGT, HSCRP, TRANSF, VITD, FERR, TSH, MAGRBC, ZINC, ANAIFR, MMA, COMP4A ####[facility] [place], [place] [phone] Methylmalonic Acidon 019 Methylmalonic Acid 126 nmol/L Normal 79-376 [facility] Comment on above: Result Comment: This test was developed and its performance characteristics determined by [facility], [facility] and [facility] [place] ( [facility]). It has not been cleared or approved by the FDA. [facility] is regulated under CLIA as qualified to perform high complexity testing. This test is used for clinical purposes. It should not be regarded as investigational or for research. Performed By: #### H OMCYS, FREET3, FT4, HBA1C, INSULN, GGT, HSCRP, TRANSF, VITD, FERR, TSH, MAGRBC, ZINC, ANAIFR, MMA, COMP4A ####[address] [phone] OmegaCheckon 02-18-2019 Arach A/EPA Ratio 7.1 Normal 3.7-40.7 [facility] Comment on above: Result Comment: (NOT E) Please note new reference range effective November 02, 2018. This reference range (3.7-40.7) replaces the previous reference range of <5.0. Test performed at: [facility] [address], [facility] [address] [place] [phone] Kevin Ness MD Performed By: #### H OMCYS, FREET3, FT4, HBA1C, INSULN, GGT, HSCRP, TRANSF, VITD, FERR, TSH, MAGRBC, ZINC, ANAIFR, MMA, COMP4A ####[address] [phone] Arachidonic Acid 10.6 % by wt Normal 8.6-15.6 [facility] Comment on above: Result Comment: (NOT E) Please note new reference range effective November 02, 2018. This reference range (8.6-15.6% by wt) replaces the previous reference range of <9.0% by wt. Performed By: #### H OMCYS, FREET3, FT4, HBA1C, INSULN, GGT, HSCRP, TRANSF, VITD, FERR, TSH, MAGRBC, ZINC, ANAIFR, MMA, COMP4A ####[address] [phone] DHA 3.8 % by wt Normal 1.4-5.1 [facility] Comment on above: Result Comment: (NOT E) Please note new reference range effective November 02, 2018. This reference range (1.4-5.1% by wt) replaces the previous reference range of >4.0% by wt. Performed By: #### H OMCYS, FREET3, FT4, HBA1C, INSULN, GGT, HSCRP, TRANSF, VITD, FERR, TSH, MAGRBC, ZINC, ANAIFR, MMA, COMP4A ####[address] [phone] DPA 1.4 % by wt Normal 0.8-1.8 [facility] Comment on above: Result Comment: (NOT E) Please note new reference range effective November 02, 2018. This reference range (0.8-1.8% by wt) replaces the previous reference range of >1.0% by wt. Performed By: #### H OMCYS, FREET3, FT4, HBA1C, INSULN, GGT, HSCRP, TRANSF, VITD, FERR, TSH, MAGRBC, ZINC, ANAIFR, MMA, COMP4A ####[address] [phone] EPA 1.5 % by wt Normal 0.2-2.3 [facility] Comment on above: Result Comment: (NOT E) Please note new reference range effective November 02, 2018. This reference range (0.2-2.3% by wt) replaces the previous reference range of >2.0% by wt. Performed By: #### H OMCYS, FREET3, FT4, HBA1C, INSULN, GGT, HSCRP, TRANSF, VITD, FERR, TSH, MAGRBC, ZINC, ANAIFR, MMA, COMP4A ####[address] [phone] Linoleic Acid 24.2 % by wt Normal 18.6-29.5 [facility] Comment on above: Result Comment: (NOT E) Please note new reference range effective November 02, 2018. This reference range (18.6-29.5% by wt) replaces the previous reference range of <20.0% by wt. Performed By: #### H OMCYS, FREET3, FT4, HBA1C, INSULN, GGT, HSCRP, TRANSF, VITD, FERR, TSH, MAGRBC, ZINC, ANAIFR, MMA, COMP4A ####[address] [phone] [place] 3 Total 6.7 % by wt Normal [facility] Comment on above: Performed By: #### H OMCYS, FREET3, FT4, HBA1C, INSULN, GGT, HSCRP, TRANSF, VITD, FERR, TSH, MAGRBC, ZINC, ANAIFR, MMA, COMP4A ####[address] [phone] [place] 6 Total 36.8 % by wt Normal [facility] Comment on above: Result Comment: (NOT E) [facility] measures a number of omega-6 fatty acids with AA and LA being the two most abundant forms reported. Performed By: #### H OMCYS, FREET3, FT4, HBA1C, INSULN, GGT, HSCRP, TRANSF, VITD, FERR, TSH, MAGRBC, ZINC, ANAIFR, MMA, COMP4A ####[address] [phone] [place]-6/3 Ratio 5.5 Normal 3.7-14.4 [facility] Comment on above: Result Comment: (NOT E) Please note new reference range effective November 02, 2018. This reference range (3.7-14.4) replaces the previous reference range of <4.5. Performed By: #### H OMCYS, FREET3, FT4, HBA1C, INSULN, GGT, HSCRP, TRANSF, VITD, FERR, TSH, MAGRBC, ZINC, ANAIFR, MMA, COMP4A ####[address] [phone] OmegaCheck 6.7 % by wt Normal >5.4 [facility] Comment on above: Result Comment: (NOT E) Increasing blood levels of long-chain n-3 fatty acids are associated with a lower risk of sudden cardiac (1). Based on the top (75th percentile) and bottom (25th percentile) quartiles of the [facility] reference population, the following risk categories [...] to 3 weeks. (Reference: 1-Rubin et al. [facility]. 2002; 346: 8915-2821). This test is performed by a Liquid Chromatography-Tandem Mass Spectrometry (LC/MS/MS) method. This test was developed and its performance characteristics determined by the [facility] It has not been cleared or approved by the U.S. FDA. The [facility] is regulated under Clinical Laboratory Improvement Amendments (CLIA) as qualified to perform high-complexity testing. This test is used for clinical purposes. It should not be regarded as investigational or for research. Performed By: #### H OMCYS, FREET3, FT4, HBA1C, INSULN, GGT, HSCRP, TRANSF, VITD, FERR, TSH, MAGRBC, ZINC, ANAIFR, MMA, COMP4A ####[facility] [id number] [place], [place] [phone] PROGRESSon 02-18-2019 PROGRESS HNO ID: [id number] Author: Maci Vega Service: ? 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 Patient received education and participated [...] Additional support needed: Phone Consultations with Health Switch Adjuster in 2-3 weeks Time Spent with patient: 30 minutes Consult Billing Type: 1 increment (30 minutes) Number of Increments: 1 (30 minutes) Signed by: Maci Vega RDN, LD, IBCLC Health Switch Adjuster Normal [facility] PROGRESS HNO ID: [id number] Author: Leny Mason Service: ? Author Type: Registered Dietitian Type: Progress Notes Filed: 02/18/2019 11:45 AM Note Text: [facility] Nutrition Therapy: Initial Assessment (Group) Patient Name: Virginia Villagran Class Topic: Functional Nutrition and Elimination Diet Introduction Education Materials: IFM Elimination Diet Food List, Weekly Corporate Trainer and Recipes, Comprehensive Guide, Adaptable Meals, Dirty [...] get back into full remission since. My rn appeals is recommending Azathioprine, but I am very [...] Yes, 01/20 related to work. Going to [employer] therapy. 48 year old female presents for [...] RD Signed by: Leny Mason RD, MAHAD [facility] PROGRESS HNO ID: [id number] Author: Amy Reed Service: ? Author Type: [...] file Gets together: Not on file Attends gnosticism service: Not on file Active member of [...] Get Back Into Full Remission Since. My Radio Aerial Installer Is Recommending Azathioprine, But I Am Very Reluctant To Take A Med That Decreases My Natural Immunity. I Want To Find Out If It Can Be Controlled In A Healthier Manner. When Was The Last Time You [place] Well? 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 Bioelectrical Impedance Analysis Results by [employer] Recent Results from: 02/18/19 at 8:53 [...] to clean the air. You can visit [email or web address] to learn more. If you wish to [...] the air circulate. Outside air generally is suede cleaner than indoor air. 4. Drink water: [...] L glutamine C Probiotics D. Magnesium E. [place] 3 F. Vitamin d with K G. [...] twice daily with meals. Refill: 0 One [place] (Pure Encapsulation) -- fish oil Sig: Take [...] Dispense: 60 capsule Refill: 0 Vitamin D [place] (Designs for Health) Sig: Take 1 capsule by mouth daily with food. I recommend the supplements from the [facility] [employer] Store at [email or web address].[email or web address]/ . Continue: Current Outpatient Medications: L-Glutamine Powder 5mg/tsp (Pure Encapsulations) gut healing/heart burn 5 grams twice per day Digestive Enzymes Ultra 180 ct. (Pure Encapsulations) supports digestion of food 1-2 capsules with meals Saccharomyces Boulardii (Klaire/Prothera) good yeast (FRIDGE) Take 2 capsules by mouth once daily. Ther-Biotic Complete Capsules (Klaire/Prothera) probiotic (FRIDGE) Take 1 capsule by mouth once daily. One [place] (Pure Encapsulation) -- fish oil Take 2 capsules by mouth daily with food. Magnesium Glycinate 120mg 3 at night Stress, blood sugar, thyroid/hormones/adrena ls/sleep/energy/toxins/ muscles/constipation/as thma 3 capsules with meals at night MultiThera 1 Capsule (Klaire/Prothera)- multivitamin Take 3 capsules by mouth twice daily with meals. Vitamin D [place] (mobifriends) Take 1 capsule by mouth daily with food. ubidecarenone Q-10 (CO Q-10) 50 mg capsule Take 1 capsule by mouth once daily. No current facility-administered medications for this visit. Stop: There are no discontinued medications. Functional Nutrition: Elimination Diet with no grains, no legumes, no starchy veggies Future Plans: Follow up: Please schedule a follow up visit with the following Caregivers: Provider: 8weeks, Imaging Technologist: 8 weeks and Health Switch Adjuster: 2 weeks LIFESTYLE PRESCRIPTION Sleep: Sleep goal [...] Melatonin which promote sleep. Buy this on HelpMeNow:AMDL PI2378 Laser Enhancement Glasses, about $8 -Listen to calming meditation and sleep music prior to bed. Visit [email or web address].mobi or use OpenGamma music available for free on You Tube. [...] one of the Heart Math booklets off Superbly that fits your 'go to' emotion - [...] Oh Mindfulness CD or MP3 available on HelpMeNow or a free lisbet: headspace or calm. [...] Health Coaching: Please consider scheduling with our [facility] health coaches for a phone or virtual visit for accountability, goal setting and help with behavior supervisor records change the next 6-8 weeks to be successful with your goals. [phone]. During the next 6-8 weeks you'll be working on your diet plan discussed with our department assistant, allowing for gentle detoxification and decreasing inflammation [...] Also make sure to schedule with the department assistant (this will not happen automatically) as you [...] appointment. You can access them on the [employer] website and it can be beneficial if you review them prior to your next visit. [email or web address]. Read about NutrEval if this was ordered. We will go over a lot of information during your follow up visit - so please be well-rested and you may want to bring someone with you, if possible. Also make sure to schedule with the department assistant (this will not happen automatically). Time spent with patient: I spent 60 minutes in the visit, with more than 50% of the time spent counseling in regards to treatment, lifestyle, root causes. Additional 30 minutes of time spent with patient regarding history, symptoms, lifestyle. Amy Reed MD, MPH Normal [facility] TSHon 02-18-2019 TSH Qn 2.400 uU/mL Normal 0.400-5.500 [facility] Comment on above: Result Comment: If t he patient is , TSH reference range varies by gestational period: First Trimester 0.100-2.500 uU/mL Second Trimester 0.200-3.000 uU/mL Third Trimester 0.300-3.000 uU/mL References: 1. Simon L, Ambrosio M, Mark EK, et al. Management of Thyroid Dysfunction during and : An Endocrine Society Clinical Practice Guideline. J Clin Endocrinol Metab, 2012:97:5553-9407. 2. Barrett ALBA. Overview of thyroid disease in . UpToDate. 2016. Accessed on December 29, 2015. Performed By: #### H OMCYS, FREET3, FT4, HBA1C, INSULN, GGT, HSCRP, TRANSF, VITD, FERR, TSH, MAGRBC, ZINC, ANAIFR, MMA, COMP4A ####[place] [id number] [place], [place] [phone] Transferrinon 02-18-2019 Transferrin [Mass/Vol] 165 mg/dL Low 200-360 [facility] Comment on above: Performed By: #### H OMCYS, FREET3, FT4, HBA1C, INSULN, GGT, HSCRP, TRANSF, VITD, FERR, TSH, MAGRBC, ZINC, ANAIFR, MMA, COMP4A ####[facility] [place], [place] [phone] Ultra-sensitive CRPon 2018 UltraSens C-ReacProt 1.8 mg/L Normal <3.1 [facility] Comment on above: Result Comment: (NOT [...] for Disease Control and Prevention and the [place] Heart Association. Circulation 2003;107:499-511. Performed By: #### H OMCYS, FREET3, FT4, HBA1C, INSULN, GGT, HSCRP, TRANSF, VITD, FERR, TSH, MAGRBC, ZINC, ANAIFR, MMA, COMP4A ####[facility] [place], [place] [phone] Vitamin D 25 Hydroxyon 02-18 Vitamin D 25 Hydroxy 64.8 ng/mL Normal 31.0-80.0 [facility] Comment on above: Result Comment: Clas sification of 25 [place] Vitamin D status: Insufficiency/Moderate Deficiency: < or = 30 ng/mL Sufficiency/Optimal Levels: 31 to 80 ng/mL Toxicity: > 100 ng/mL Test performed by chemiluminescent immunoassay. Performed By: #### H OMCYS, FREET3, FT4, HBA1C, INSULN, GGT, HSCRP, TRANSF, VITD, FERR, TSH, MAGRBC, ZINC, ANAIFR, MMA, COMP4A ####[facility] [address] [place], [place] [phone] Zincon 02-18-2019 Zinc 74 ug/dL Normal 55-150 [facility] Comment on above: Result Comment: This test was developed and its performance characteristics determined by [facility]'s [facility] Pathology and Laboratory Medicine [place] ([facility]). It has not been cleared or approved by the FDA. [facility] is regulated under CLIA as qualified to perform high complexity testing. This test is used for clinical purposes. It should not be regarded as investigational or for research. Performed By: #### H OMCYS, FREET3, FT4, HBA1C, INSULN, GGT, HSCRP, TRANSF, VITD, FERR, TSH, MAGRBC, ZINC, ANAIFR, MMA, COMP4A ####[facility] [address] [place], [place] [phone] GLUCOSE ([id number])Ordered By: S ystem Senior Accountant on 01-15-2019 Glucose [Mass/Vol] 85 mg/dL Normal 65-99 [facility] Internal Medicine Work Phone: Comment on above: PATIENT WAS FASTINGP ERFORMED BY: BN [facility] [address] [id number] BY: CB [facility] Ocepjk0152 [facility] [id number] NMR Profile ([id number])Ordered B y: Die Sizer on 01-15-2019 Cholesterol [Mass/Vol] 208 mg/dL Abnormal 100-199 [facility] Work Phone: Comment on above: PATIENT WAS FASTINGP ERFORMED BY: [employer] [id number] BY: Fusion[employer]elin6370 [facility] [id number] Cholesterol in HDL [Mass/Vol] 86 mg/dL Normal [facility] Work Phone: Comment on above: PATIENT WAS FASTINGP ERFORMED BY: [employer] [id number] BY: NeoPath Networkslin6370 [facility] [id number] Lipoprotein.alpha [Moles/Vol] 39.6 umol/L Normal [facility] Work Phone: Comment on above: PATIENT WAS FASTINGP ERFORMED BY: [employer] [id number] BY: [email or web address] [facility] [id number] Lipoprotein.beta.subp article [Entitic length] 21.7 nm Normal [...] were developed and their performance characteristicsdetermined by [employer]. These assays have not been cleared by Keysha Food and Drug Administration. The clinical utility of theselaboratory values have not been fully established. PATIENT WAS FASTINGP ERFORMED BY: [employer] [address] [id number] BY: [email or web address] [facility] [id number] Lipoprotein.beta.subp article [Moles/Vol] 875 nmol/L Normal Comprehensiv e Internal Medicine Work Phone: Comment on above: Low < 1000 Moderate 1000 - 1299 Borderline-High 1300 - 1599 High 1600 - 2000 Very High > 2000 PATIENT WAS FASTINGP ERFORMED BY: [employer] [address] [id number] BY: [email or web address] [facility] [id number] Lipoprotein.beta.subp article.small [Moles/Vol] <90 Normal [facility] Work Phone: Comment on above: PATIENT WAS FASTINGP ERFORMED BY: [employer] [address] [id number] BY: [email or web address] [facility]Nov[facility] [id number] Triglyceride [Mass/Vol] 87 mg/dL Normal 0-149 [facility] Work Phone: Comment on above: PATIENT WAS FASTINGP ERFORMED BY: [employer] [address] [id number] BY: [employer] Kinqjc7239 [facility] [id number] NMR Profile ([id number]) 105 mg/dL Abnormal 0-99 Com[facility] Internal Medicine Work Phone: Comment on above: . Optimal < 100 Abov e optimal 100 - 129 Borderline 130 - 159 High 160 - 189 Very high > 189 .LDL-C is inaccurate if patient is non-fasting. PATIENT WAS FASTINGP ERFORMED BY: [employer] [id number] BY: [email or web address] [address] [facility] [id number] CALCIFIDIOL (78304) VIT D 25 Ordered By: Die Sizer on 07-29-2018 25-Hydroxyvitamin D2+25-Hydroxyvitamin D3 [Mass/Vol] 56.0 ng/mL Normal 30.0-100.0 [facility] Work Phone: Comment on above: Vitamin D deficiency has been defined by the [place] of[facility] and an Endocrine Society practice guideline as alevel of serum 25-OH vitamin D less than 20 ng/mL (1,2).The Endocrine Society went on to further define vitamin Dinsufficiency as a level between 21 and 29 ng/mL (2).1. IOM ([place] of Medicine). 2010. Dietary reference intakes for calcium and D. [place]: The National Academies Press.2. Krystal MF, Ashtyn GREENBERG, Cassandra FLEMING, et al. Evaluation, treatment, and prevention of vitamin D deficiency: an Endocrine Society clinical practice guideline. JCEM. 2010; 96(7):1911-30. PATIENT WAS FASTINGP ERFORMED BY: [employer] [place] [address] [id number] BY: [email or web address] [facility] [id number] CBC W/AUTO DIFF WBC ([id number])O rdered By: Die Sizer on 07-29-2018 Basophils (Bld) [#/Vol] 0.0 {x10E3/uL} Normal 0.0-0.2 [facility] Work Phone: Comment on above: PATIENT WAS FASTINGP ERFORMED BY: [employer] [id number] BY: NeoPath Networkslin6370 [facility] [id number] Basophils (Bld) [#/Vol] 0.0 10*3/uL Normal 0.0-0.2 [facility]; [facility] Work Phone: Comment on above: PATIENT WAS FASTINGP ERFORMED BY: [facility] [id number] BY: [facility] [address]tw[address] [facility] [place] [id number] Basophils/100 WBC (Bld) 1 % Normal [facility] Work Phone: Comment on above: PATIENT WAS FASTINGP ERFORMED BY: [facility] [address] [id number] BY: [facility] Xlpfwz7902 Shukla RoadDuCritical access hospital [id number] Eosinophils (Bld) [#/Vol] 0.2 {x10E3/uL} Normal 0.0-0.4 [facility] Work Phone: Comment on above: PATIENT WAS FASTINGP ERFORMED BY: Lab[address] [id number] BY: LabCoJudy V[place] [address] [facility] [id number] Eosinophils (Bld) [#/Vol] 0.2 10*3/uL Normal 0.0-0.4 [facility]; [facility] Work Phone: Comment on above: PATIENT WAS FASTINGP ERFORMED BY: [address] [id number] BY: LabCoJud[place] [address] [facility] [id number] Eosinophils/100 WBC (Bld) 4 % Normal [facility] Work Phone: Comment on above: PATIENT WAS FASTINGP ERFORMED BY: [address] [id number] BY: LabCoJud[place] [address] [facility] [id number] Erythrocyte distribution width (RBC) [Ratio] 13.7 % Normal 12.3-15.4 [facility] Work Phone: Comment on above: PATIENT WAS FASTINGP ERFORMED BY: [address] [id number] BY: [facility] HospitalCoHoly Name Medical CenterRlnhiy9369 [facility] [id number] Hematocrit (Bld) [Volume fraction] 43.2 % Normal 34.0-46.6 [facility] Work Phone: Comment on above: PATIENT WAS FASTINGP ERFORMED BY: [address] [id number] BY: [place] [address] [facility] [id number] Hemoglobin (Bld) [Mass/Vol] 14.0 g/dL Normal 11.1-15.9 [facility] Work Phone: Comment on above: PATIENT WAS FASTINGP ERFORMED BY: [address] [id number] BY: [place] [address] [facility] [id number] Immature granulocytes (Bld) [#/Vol] 0.0 {x10E3/uL} Normal 0.0-0.1 [facility] Work Phone: Comment on above: PATIENT WAS FASTINGP ERFORMED BY: [address] [id number] BY: [place] [address] [facility] [id number] Immature granulocytes (Bld) [#/Vol] 0.0 10*3/uL Normal 0.0-0.1 [facility]; [facility] Work Phone: Comment on above: PATIENT WAS FASTINGP ERFORMED BY: [address] [id number] BY: [place] [address] [facility] [id number] Immature granulocytes/100 WBC (Bld) 0 % Normal [facility] Work Phone: Comment on above: PATIENT WAS FASTINGP ERFORMED BY: BN [address] [id number] BY: LabInsight [facility] Hospital[address] [facility] [id number] Lymphocytes (Bld) [#/Vol] 2.4 {x10E3/uL} Normal 0.7-3.1 [facility] Work Phone: Comment on above: PATIENT WAS FASTINGP ERFORMED BY: [address] [id number] BY: [place] [address] [facility] [id number] Lymphocytes (Bld) [#/Vol] 2.4 10*3/uL Normal 0.7-3.1 [facility]; [facility] Work Phone: Comment on above: PATIENT WAS FASTINGP ERFORMED BY: [address] [id number] BY: [place] [address] [facility] [id number] Lymphocytes/100 WBC (Bld) 38 % Normal [facility] Work Phone: Comment on above: PATIENT WAS FASTINGP ERFORMED BY: [address] [id number] BY: [place] [address] [facility] [id number] MCH (RBC) [Entitic mass] 31.4 pg Normal 26.6-33.0 [facility] Work Phone: Comment on above: PATIENT WAS FASTINGP ERFORMED BY: [address] [id number] BY: [facility]6370 [facility] [id number] MCHC (RBC) [Mass/Vol] 32.4 g/dL Normal 31.5-35.7 [facility] prehensive Internal Medicine Work Phone: Comment on above: PATIENT WAS FASTINGP ERFORMED BY: [address] [id number] BY: RUBEN [facility] Slurga4[address] RoadDublin [place] [id number] MCV (RBC) [Entitic vol] 97 fL Normal 79-97 [facility] Work Phone: Comment on above: PATIENT WAS FASTINGP ERFORMED BY: [address] [id number] BY: RUBEN [facility] Lfhght8391 Shukla RoadDublin [place] [id number] Monocytes (Bld) [#/Vol] 0.5 {x10E3/uL} Normal 0.1-0.9 [facility] Work Phone: Comment on above: PATIENT WAS FASTINGP ERFORMED BY: Lab[address] [id number] BY: RUBEN [facility] Upyztk9331 [address]la RoadDublin [place] [id number] Monocytes (Bld) [#/Vol] 0.5 10*3/uL Normal 0.1-0.9 [facility]; [facility] Work Phone: Comment on above: PATIENT WAS FASTINGP ERFORMED BY: [address] [id number] BY: RUBEN LabSaint [facility] Jhxbxs5614 [address] RoadDublin [place] [id number] Monocytes/100 WBC (Bld) 8 % Normal [facility] Work Phone: Comment on above: PATIENT WAS FASTINGP ERFORMED BY: Lab[address] [id number] BY: [facility] Rjzuij1849 [address] RoadDublin [place] [id number] Neutrophils (Bld) [#/Vol] 3.1 {x10E3/uL} Normal 1.4-7.0 [facility] Work Phone: Comment on above: PATIENT WAS FASTINGP ERFORMED BY: [address] [id number] BY: [facility] Eaahtj0048 [address] RoadDublin [place] [id number] Neutrophils (Bld) [#/Vol] 3.1 10*3/uL Normal 1.4-7.0 [facility]; [facility] Work Phone: Comment on above: PATIENT WAS FASTINGP ERFORMED BY: [facility] [address] [id number] BY: CB [facility] Salahc0075 [address]la RoadDublin [place] [id number] Neutrophils/100 WBC (Bld) 49 % Normal [facility] Work Phone: Comment on above: PATIENT WAS FASTINGP ERFORMED BY: [facility] [address] [id number] BY: RUBEN [facility] Bbkdeh0783 [address] RoadDublin [place] [id number] Platelets (Bld) [#/Vol] 327 {x10E3/uL} Normal 150-379 [facility] Work Phone: Comment on above: PATIENT WAS FASTINGP ERFORMED BY: [facility] [address] [id number] BY: [facility] Tjhkzd1336 [address] RoadDublin [place] [id number] Platelets (Bld) [#/Vol] 327 10*3/uL Normal 150-379 [facility]; [facility] Work Phone: Comment on above: PATIENT WAS FASTINGP ERFORMED BY: [facility] [address] [id number] BY: [facility] Wygupm3181 [address] RoadDublin [place] [id number] RBC (Bld) [#/Vol] 4.46 {x10E6/uL} Normal 3.77-5.28 [facility] Internal Medicine Work Phone: Comment on above: PATIENT WAS FASTINGP ERFORMED BY: [facility]Co[address] [id number] BY: LabCoHoly Name Medical CenterOqpemh7683 [facility] [id number] RBC (Bld) [#/Vol] 4.46 10*6/uL Normal 3.77-5.28 [facility] ehensive Internal Medicine; [facility] Work Phone: Comment on above: PATIENT WAS FASTINGP ERFORMED BY: Lab[address] [id number] BY: [facility] Aiziva7710 [facility] [id number] WBC (Bld) [#/Vol] 6.2 {x10E3/uL} Normal 3.4-10.8 [facility] Centerensive Internal [facility] Work Phone: Comment on above: PATIENT WAS FASTINGP ERFORMED BY: Lab[address] [id number] BY: LabInsight [facility] Hospital6370 [facility] [id number] WBC (Bld) [#/Vol] 6.2 10*3/uL Normal 3.4-10.8 [facility] Internal Medicine; [facility] Work Phone: Comment on above: PATIENT WAS FASTINGP ERFORMED BY: Lab[address] [id number] BY: LabInsight Surgical Hospital6370 [facility] [id number] LIPOPROTEIN, BLD, BY NMR ([id number])Ordered By: Die Sizer on 07-29-2018 Cholesterol [Mass/Vol] 202 mg/dL Abnormal 100-199 [facility] Work Phone: Comment on above: PATIENT WAS FASTINGP ERFORMED BY: Lab[address] [id number] BY: [facility]Ins[facility]6370 [facility] [id number] Cholesterol in HDL [Mass/Vol] 77 mg/dL Normal [facility] Work Phone: Comment on above: PATIENT WAS FASTINGP ERFORMED BY: Lab[address] [id number] BY: [employer] Tdduvw9338 [facility] [id number] Lipoprotein.alpha [Moles/Vol] 40.7 umol/L Normal [facility] Work Phone: Comment on above: PATIENT WAS FASTINGP ERFORMED BY: [employer] [id number] BY: [employer] Klnumj8401 [facility] [id number] Lipoprotein.beta.subp article [Entitic length] 21.4 nm Normal [...] were developed and their performance characteristicsdetermined by [employer]. These assays have not been cleared by [place]ha Food and Drug Administration. The clinical utility of theselaboratory values have not been fully established. PATIENT WAS FASTINGP ERFORMED BY: [employer] Jzix[address]mi[address] [id number] BY: openPeopleHoly Name Medical CenterUzdhsx9218 [facility] [id number] Lipoprotein.beta.subp article [Moles/Vol] 925 nmol/L Normal Comprehensiv e Internal Medicine Work Phone: Comment on above: Low < 1000 Moderate 1000 - 1299 Borderline-High 1300 - 1599 High 1600 - 2000 Very High > 2000 PATIENT WAS FASTINGP ERFORMED BY: openPeople[address] [id number] BY: openPeopleHoly Name Medical CenterDrtxux4773 [facility] [id number] Lipoprotein.beta.subp article.small [Moles/Vol] 196 nmol/L Normal [facility] Work Phone: Comment on above: PATIENT WAS FASTINGP ERFORMED BY: openPeople[address] [id number] BY: openPeopleHoly Name Medical CenterUsdeqt3854 [facility] [id number] Triglyceride [Mass/Vol] 67 mg/dL Normal 0-149 [facility] Work Phone: Comment on above: PATIENT WAS FASTINGP ERFORMED BY: openPeople[address] [id number] BY: openPeopleHoly Name Medical CenterOttbze9675 [facility] [id number] LIPOPROTEIN, BLD, BY NMR ([id number]) 112 mg/dL Abnormal 0-99 [facility] Work Phone: Comment on above: . Optimal < 100 Abov e optimal 100 - 129 Borderline 130 - 159 High 160 - 189 Very high > 189 .LDL-C is inaccurate if patient is non-fasting. PATIENT WAS FASTINGP ERFORMED BY: openPeople[address] [id number] BY: openPeopleHoly Name Medical CenterFmgubz4054 [facility] [id number] METABOLIC PANEL, COMPREHENSI VE ([id number])Ordered By: Die Sizer on 07-29-2018 Albumin [Mass/Vol] 4.8 g/dL Normal 3.5-5.5 [facility] Internal Medicine Work Phone: Comment on above: PATIENT WAS FASTINGP ERFORMED BY: [facility] [address] [id number] BY: CB [facility] Bfcnwx2159 Shukla RoadDublin [place] [id number] Albumin/Globulin [Mass ratio] 1.8 {ratio} Normal 1.2-2.2 [facility] Work Phone: Comment on above: PATIENT WAS FASTINGP ERFORMED BY: [facility] [address] [id number] BY: CB [facility] Vfivme1981 Shukla RoadDublin [place] [id number] ALP [Catalytic activity/Vol] 79 [iU]/L Normal 39-117 [facility] Work Phone: Comment on above: PATIENT WAS FASTINGP ERFORMED BY: [facility] [address] [id number] BY: CB [facility] Wfnqgs1740 [address]la RoadDublin [place] [id number] ALP [Catalytic activity/Vol] 79 U/L Normal 39-117 [facility]; [facility] Work Phone: Comment on above: PATIENT WAS FASTINGP ERFORMED BY: [facility] [address] [id number] BY: CB [facility] Hfbigv2972 [address]la RoadDublin [place] [id number] ALT [Catalytic activity/Vol] 10 [iU]/L Normal 0-32 [facility] Work Phone: Comment on above: PATIENT WAS FASTINGP ERFORMED BY: [facility] [address] [id number] BY: CB [facility] Fmkljh8483 [address] RoadDublin [place] [id number] ALT [Catalytic activity/Vol] 10 U/L Normal 0-32 [facility]; [facility] Work Phone: Comment on above: PATIENT WAS FASTINGP ERFORMED BY: [facility] [address] [id number] BY: RUBEN [facility] Ojttzf8411 [address]la RoadDublin [place] [id number] AST [Catalytic activity/Vol] 14 [iU]/L Normal 0-40 [facility] Work Phone: Comment on above: PATIENT WAS FASTINGP ERFORMED BY: Lab[address] [id number] BY: RUBEN [facility] Omgzld2555 Shukla RoadDublin [place] [id number] AST [Catalytic activity/Vol] 14 U/L Normal 0-40 [facility]; [facility] Work Phone: Comment on above: PATIENT WAS FASTINGP ERFORMED BY: [address] [id number] BY: RUBEN [facility] Eujxtq1262 [address] RoadDublin [place] [id number] Bilirubin [Mass/Vol] 0.4 mg/dL Normal 0.0-1.2 Comp rehensive Internal Medicine Work Phone: Comment on above: PATIENT WAS FASTINGP ERFORMED BY: [address] [id number] BY: RUBEN [facility] Fyofnt7593 [address] RoadDublin [place] [id number] Calcium [Mass/Vol] 9.7 mg/dL Normal 8.7-10.2 [facility] Internal Medicine Work Phone: Comment on above: PATIENT WAS FASTINGP ERFORMED BY: Lab[address] [id number] BY: [facility] Olvhev3644 [address] RoadDublin [place] [id number] Chloride [Moles/Vol] 99 mmol/L Normal 96-106 [facility] Work Phone: Comment on above: PATIENT WAS FASTINGP ERFORMED BY: [address] [id number] BY: CB [facility] Owxmjd3698 [address] RoadDublin [place] [id number] CO2 [Moles/Vol] 28 mmol/L Normal 20-29 [facility] Internal Medicine Work Phone: Comment on above: PATIENT WAS FASTINGP ERFORMED BY: BN [facility] Fbchyoqykg[address] [id number] BY: CB [facility] Xziqit3859 [address] [facility]in [place] [id number] Creatinine [Mass/Vol] 0.91 mg/dL Normal 0.57-1.00 [facility] Internal Medicine Work Phone: Comment on above: PATIENT WAS FASTINGP ERFORMED BY: BN [facility] Cywcgyjyzc[address] [id number] BY: RUBEN [facility] Ivmnfo7485 [address] [facility] [id number] GFR/1.73 sq M predicted among blacks CKD-EPI (S/P/Bld) [Vol rate/Area] 85 mL/min/1.73 Normal [facility] Work Phone: Comment on above: PATIENT WAS FASTINGP ERFORMED BY: [facility] [address] [id number] BY: RUBEN [facility] Glypzf9336 [facility] [id number] GFR/1.73 sq M predicted among non-blacks CKD-EPI (S/P/Bld) [Vol rate/Area] 74 mL/min/1.73 Normal [facility] Work Phone: Comment on above: PATIENT WAS FASTINGP ERFORMED BY: BN [facility] [address] [id number] BY: RUBEN [facility] Bgqxgs1800 [facility] [id number] Globulin (S) [Mass/Vol] 2.7 g/dL Normal 1.5-4.5 [facility] Internal Medicine Work Phone: Comment on above: PATIENT WAS FASTINGP ERFORMED BY: BN [facility] Agmooqeuzh[address] [id number] BY: RUBEN [facility] Hyclkl1885 [address] RoadDublin [place] [id number] Glucose [Mass/Vol] 96 mg/dL Normal 65-99 [facility] Internal Medicine Work Phone: Comment on above: PATIENT WAS FASTINGP ERFORMED BY: LabCo[address] [id number] BY: RUBEN [facility] Faepeq2019 [address] RoadDublin [place] [id number] Potassium [Moles/Vol] 4.7 mmol/L Normal 3.5-5.2 [facility] Internal Medicine Work Phone: Comment on above: PATIENT WAS FASTINGP ERFORMED BY: LabCo[address] [id number] BY: RUBEN [facility] Xtodvl4398 [address] RoadDublin [place] [id number] Protein [Mass/Vol] 7.5 g/dL Normal 6.0-8.5 [facility] Internal Medicine Work Phone: Comment on above: PATIENT WAS FASTINGP ERFORMED BY: Lab[address] [id number] BY: RUBEN [facility] Geivyx2548 [address] RoadDublin [place] [id number] Sodium [Moles/Vol] 139 mmol/L Normal 134-144 [facility] Internal Medicine Work Phone: Comment on above: PATIENT WAS FASTINGP ERFORMED BY: LabCo[address] [id number] BY: RUBEN [facility] Mqzzct5254 [address] RoadDublin [place] [id number] Urea nitrogen [Mass/Vol] 19 mg/dL Normal 6-24 [facility] Internal Medicine Work Phone: Comment on above: PATIENT WAS FASTINGP ERFORMED BY: LabCo[address] [id number] BY: RUBEN [facility] Vudipz8915 [address] RoadDublin [place] [id number] Urea nitrogen/Creatinine [Mass ratio] 21 mg/mg Normal 9-23 [facility] Work Phone: Comment on above: PATIENT WAS FASTINGP ERFORMED BY: [employer] [id number] BY: RUBEN openPeopleHoly Name Medical CenterWamqhk0772 [facility] [id number] MICROALBUMINOrdered By: Syst em Senior Accountant on 07-29-2018 Albumin DL <= 20 mg/L (U) [Mass/Vol] 10.6 ug/mL Normal [facility] Work Phone: Comment on above: PATIENT WAS FASTINGP ERFORMED BY: [employer] [address] [id number] BY: RUBEN openPeopleHoly Name Medical CenterMbdcwo9877 [facility] [id number] Albumin/Creatinine (U) [Mass ratio] 6.7 {mg/g_creat} Normal 0.0-30.0 [facility] Work Phone: Comment on above: Normal: 0.0 - 30.0 A lbuminuria: 31.0 - 300.0 Clinical albuminuria: >300.0 PATIENT WAS FASTINGP ERFORMED BY: Trips n Salsa[address] [id number] BY: openPeopleHoly Name Medical CenterYtkfpw2769 [facility] [id number] Creatinine (U) [Mass/Vol] 157.4 mg/dL Normal [facility] Work Phone: Comment on above: PATIENT WAS FASTINGP ERFORMED BY: Trips n Salsa[address] [id number] BY: openPeople Erngpc3524 [facility] [id number] URINALYSIS, W/ MICRO ([id number]) Ordered By: Die Sizer on 07-29-2018 Appearance (U) Clear Normal Comprehens иван Internal Medicine Work Phone: Comment on above: PATIENT WAS FASTINGP ERFORMED BY: Trips n Salsa[address] [id number] BY: RUBEN [facility] Toghrm4913 [address] RoadDublin [place] [id number] Bilirubin Ql (U) Negative Normal Comprehe nsive Internal Medicine Work Phone: Comment on above: PATIENT WAS FASTINGP ERFORMED BY: [address] [id number] BY: RUBEN [facility] Rofytj3614 [address] RoadDublin [place] [id number] Bilirubin Ql (U) Negative Normal Comprehe nsive Internal Medicine; [facility] Work Phone: Comment on above: PATIENT WAS FASTINGP ERFORMED BY: [address] [id number] BY: RUBEN [facility] Vzhpgd0719 [address] RoadDublin [place] [id number] Color (U) Yellow Normal [facility] Work Phone: Comment on above: PATIENT WAS FASTINGP ERFORMED BY: [address] [id number] BY: RUBEN [facility] Etrpde6081 Sh[address] RoadDublin [place] [id number] Glucose Ql (U) Negative Normal Comprehens иван Internal Medicine Work Phone: Comment on above: PATIENT WAS FASTINGP ERFORMED BY: [address] [id number] BY: RUBEN [facility] Fbicmn8357 [address] RoadDublin [place] [id number] Glucose Ql (U) Negative Normal Comprehens иван Internal Medicine; [facility] Work Phone: Comment on above: PATIENT WAS FASTINGP ERFORMED BY: [address] [id number] BY: RUBEN [facility] Fceubp5816 [address] RoadDublin [place] [id number] Hemoglobin Ql (U) Negative Normal Compreh ensive Internal Medicine Work Phone: Comment on above: PATIENT WAS FASTINGP ERFORMED BY: BN Lab[address] [id number] BY: [facility] Nqptmq9852 [address] RoadDublin [place] [id number] Hemoglobin Ql (U) Negative Normal Compreh ensive Internal Medicine; [facility] Work Phone: Comment on above: PATIENT WAS FASTINGP ERFORMED BY: [address] [id number] BY: [facility] Rxfmdo7260 [address] RoadDublin [place] [id number] Ketones Ql (U) Negative Normal Comprehens иван Internal Medicine Work Phone: Comment on above: PATIENT WAS FASTINGP ERFORMED BY: [address] [id number] BY: [facility] Ahundg4527 [address] RoadDublin [place] [id number] Ketones Ql (U) Negative Normal Comprehens иван Internal Medicine; [facility] Work Phone: Comment on above: PATIENT WAS FASTINGP ERFORMED BY: [address] [id number] BY: [facility] Jiejmf2465 [address] RoadDublin [place] [id number] Leukocyte esterase Test strip Ql (U) Negative Normal [facility] Work Phone: Comment on above: PATIENT WAS FASTINGP ERFORMED BY: [address] [id number] BY: [facility] Pevahd9434 [address] RoadDublin [place] [id number] Leukocyte esterase Test strip Ql (U) Negative Normal [facility]; [facility] Work Phone: Comment on above: PATIENT WAS FASTINGP ERFORMED BY: Lab[address] [id number] BY: CB [facility] Httefr7107 [address] RoadDublin [place] [id number] Microscopic observation LM Nom (Urine sed) See below: Normal [facility] Work Phone: Comment on above: Microscopic was evita cated and was performed. PATIENT WAS FASTINGP ERFORMED BY: Lab[address] [id number] BY: RUBEN [facility] Ivspma6903 [address] RoadDublin [place] [id number] Microscopic observation LM Nom (Urine sed) MICRON Normal [facility] Work Phone: Comment on above: Microscopic follows if indicated. PATIENT WAS FASTINGP ERFORMED BY: Lab[address] [id number] BY: RUBEN [facility] Mkoajd8478 [address] RoadDublin [place] [id number] Nitrite Ql (U) Negative Normal Comprehens иван Internal Medicine Work Phone: Comment on above: PATIENT WAS FASTINGP ERFORMED BY: [address] [id number] BY: RUBEN [facility] Cgakto4484 [address] RoadDublin [place] [id number] Nitrite Ql (U) Negative Normal Comprehens иван Internal Medicine; [facility] Work Phone: Comment on above: PATIENT WAS FASTINGP ERFORMED BY: Lab[address] [id number] BY: RUBEN [facility] Xtpzch8846 [address] RoadDublin [place] [id number] pH (U) 6.5 [pH] Normal 5.0-7.5 [facility] Work Phone: Comment on above: PATIENT WAS FASTINGP ERFORMED BY: Lab[address] [id number] BY: RUBEN [facility] Xyfqti1924 [address] RoadDublin [place] [id number] Protein Ql (U) Negative Normal Comprehens иван Internal Medicine Work Phone: Comment on above: PATIENT WAS FASTINGP ERFORMED BY: [address] [id number] BY: CB [facility] Dqbcwx6965 [address] [facility] [id number] Protein Ql (U) Negative Normal Comprehens иван Internal Medicine; [facility] Work Phone: Comment on above: PATIENT WAS FASTINGP ERFORMED BY: [address] [id number] BY: [facility]6370 [facility] [id number] Specific gravity (U) [Rel density] 1.023 1 Normal 1.005-1.030 [facility] Work Phone: Comment on above: PATIENT WAS FASTINGP ERFORMED BY: [employer] [id number] BY: [place] 7348670 [facility] [id number] Urobilinogen (U) [Mass/Vol] 0.2 mg/dL Normal 0.2-1.0 [facility]; [facility] Work Phone: Comment on above: PATIENT WAS FASTINGP ERFORMED BY: [employer] [id number] BY: [employer] MediaAaron Ville 7709870 [facility] [id number] Urobilinogen Test strip (U) [Mass/Vol] 0.2 mg/dL Normal 0.2-1.0 Comprehensi Internal Medicine Work Phone: Comment on above: PATIENT WAS FASTINGP ERFORMED BY: [employer] [id number] BY: [facility]6370 [facility] [id number] CDIFF (Molecular)Ordered By: Die Sizer on 05-26-2018 C. difficile DNA TERI+probe Ql [...] difficile DNA Miscellaneous Lab ProcedureO rdered By: Die Sizer on 05-18-2018 [facility] LAB TEST Normal Comprehensi ve Internal Medicine [...] the production ofinterferon gamma. [facility]. ORIGINAL REPORT ON FILE IN LAB CONTAINS ADDITIONAL TEST SITE INFORMATION. CBC-Complete Blood Cnt No Di ffOrdered By: Die Sizer on 12-17-2017 Erythrocyte distribution width Auto Ratio (RBC) 13.1 % Normal 11.6-14.6 [facility] Work Phone: Hematocrit Auto Volume Fraction (Bld) 42.0 % Normal 37-47 Comprehens иван Internal Medicine Work Phone: Hemoglobin mass conc (Bld) 13.5 g/dL Normal 12.0-15.0 [facility] Internal Medicine Work Phone: MCH Auto Entitic mass (RBC) 31.5 pg Normal 27.0-32.0 [facility] Internal Medicine Work Phone: MCHC Auto mass conc (RBC) 32.1 {g/gl} Normal 32-36 [facility] Internal Medicine Work Phone: MCV Auto Entitic volume (RBC) 97.9 fL Normal 81-99 [facility] Internal Medicine Work Phone: Platelet mean volume Auto Entitic volume (Bld) 10.8 fL Normal 6.2-12.0 [facility] Internal Medicine Work Phone: Platelets Auto #/vol (Bld) 275 10*3/uL Normal 150-450 [facility] Internal Medicine Work Phone: RBC Auto #/vol (Bld) 4.29 {M/mm3} Normal 4.2-5.4 [facility] Internal Medicine Work Phone: RDW SD 46.6 fL Abnormal 35.1-43.9 [facility] Internal Medicine Work Phone: WBC Auto #/vol (Bld) 5.7 10*3/uL Normal 4.4-11.0 [facility] Internal Medicine Work Phone: Comprehensive Metabolic Prof ilOrdered By: Die Sizer on 12-17-2017 Comprehensive metabolic 2000 panel 21.0 [...] above: Please note revised GLUCOSE reference range uuctjshsk31/02/2018. Comprehensive metabolic 2000 panel 17 mg/dL Normal [...] Work Phone: Lipid ProfileOrdered By: Mckay tem Senior Accountant on 12-17-2017 Cholesterol in HDL mass conc [...] Phone: Thyroid Stim Hormone (TSH)Or dered By: Die Sizer on 12-17-2017 Thyrotropin Qn 2.18 {uIU/mL} Normal 0.358-3.74 Compreh ensive Internal Medicine Work Phone: Urinalysis, CompleteOrdered By: Die Sizer on 12-17-2017 RBC Test strip #/vol (U) [...] Medicine Work Phone: Vitamin D,25 HydroxyOrdered By: Die Sizer on 12-17-2017 Vitamin D 25-OH 44.5 ng/mL [...] current medications (procedure) Done Invalid Interpretation Code [facility] Work Phone: Fall risk assessment No Invalid Interpretation Code [facility] Work Phone: Tobacco smoking status NHIS Never Invalid Interpretation Code [facility] Work Phone: Tobacco use HS Never smoker Invalid Interpretation Code [facility] Work Phone: PAP I-G w/rfx hrHPVOrdered B y: Die Sizer on 05-28-2017 COMM . Normal [facility] [...] therefore, no HPV testing was performed.Performed at: [address] [id number] Director: Bess Cross MD, Phone: [phone] NEGATIVE FOR INTRAEP ITHELIAL LESION AND MALIGNANCY. This liquid based Th inPrep(R) pap test was screened withthe use of an image guided system. Gino Tenorio, [employer] hnologist (ASCP) CALCIFEDIOL (40337)Ordered B y: Die Sizer on 05-09-2017 25-Hydroxyvitamin D2+25-Hydroxyvitamin D3 mass conc 72.8 ng/mL Normal 30.0-100.0 [facility] Work Phone: Comment on above: Vitamin D deficiency has been defined by the [place] ofMedicine and an Endocrine Society practice guideline as alevel of serum 25-OH vitamin D less than 20 ng/mL (1,2).The Endocrine Society went on to further define vitamin Dinsufficiency as a level between 21 and 29 ng/mL (2).1. IOM ([place] of Medicine). 2010. Dietary reference intakes for calcium and D. [place]: The National Academies Press.2. Krystal MF, Ashtyn NC, Cassandra FLEMING, et al. Evaluation, treatment, and prevention of vitamin D deficiency: an Endocrine Society clinical practice guideline. JCEM. 2011 [place]; 96(7):1911-30. PATIENT WAS FASTINGP ERFORMED BY: LabCoHoly Name Medical CenterPwbjpu4483 [facility] [id number] CBC W/AUTO DIFF WBC (97686)O rdered By: Die Sizer on 05-09-2017 Basophils (Bld) [#/Vol] 0.0 {x10E3/uL} Normal 0.0-0.2 [facility] Work Phone: Comment on above: PATIENT WAS FASTINGP ERFORMED BY: [facility]6370 [facility] [id number] Basophils (Bld) [#/Vol] 0.0 10*3/uL Normal 0.0-0.2 [facility]; [facility] Work Phone: Comment on above: PATIENT WAS FASTINGP ERFORMED BY: [address] [id number] Basophils Auto #/vol (Bld) 0.0 {x10E3/uL} Normal 0.0-0.2 [facility] Work Phone: Basophils/100 WBC (Bld) 0 % Normal [facility] Work Phone: Comment on above: PATIENT WAS FASTINGP ERFORMED BY: [place] 7348670 [facility] [id number] Basophils/100 WBC Auto (Bld) 0 % Normal [facility] Work Phone: Eosinophils (Bld) [#/Vol] 0.2 {x10E3/uL} Normal 0.0-0.4 [facility] Work Phone: Comment on above: PATIENT WAS FASTINGP ERFORMED BY: [facility]6370 [facility] [id number] Eosinophils (Bld) [#/Vol] 0.2 10*3/uL Normal 0.0-0.4 [facility]; [facility] Work Phone: Comment on above: PATIENT WAS FASTINGP ERFORMED BY: LabAaron Ville 7709870 [facility] [id number] Eosinophils Auto #/vol (Bld) 0.2 {x10E3/uL} Normal 0.0-0.4 [facility] Work Phone: Eosinophils/100 WBC (Bld) 3 % Normal [facility] Work Phone: Comment on above: PATIENT WAS FASTINGP ERFORMED BY: [place] 7348670 [facility] [id number] Eosinophils/100 WBC Auto (Bld) 3 % Normal [facility] Work Phone: Erythrocyte distribution width (RBC) [Ratio] 13.1 % Normal 12.3-15.4 [facility] Work Phone: Comment on above: PATIENT WAS FASTINGP ERFORMED BY: [place] 7348670 [facility] [id number] Erythrocyte distribution width Auto Ratio (RBC) 13.1 % Normal 12.3-15.4 [facility] Work Phone: Hematocrit (Bld) [Volume fraction] 40.7 % Normal 34.0-46.6 [facility] Work Phone: Comment on above: PATIENT WAS FASTINGP ERFORMED BY: [place] 7348670 [facility] [id number] Hematocrit Auto Volume Fraction (Bld) 40.7 % Normal 34.0-46.6 [facility] Internal Medicine Work Phone: Hemoglobin mass conc (Bld) 13.1 g/dL Normal 11.1-15.9 [facility] Work Phone: Comment on above: PATIENT WAS FASTINGP ERFORMED BY: [place] 7348670 [facility] [id number] Immature granulocytes #/vol (Bld) 0.0 {x10E3/uL} Normal 0.0-0.1 [facility] Work Phone: Comment on above: PATIENT WAS FASTINGP ERFORMED BY: [place] 7348670 [facility] [id number] Immature granulocytes (Bld) [#/Vol] 0.0 10*3/uL Normal 0.0-0.1 [facility]; [facility] Work Phone: Comment on above: PATIENT WAS FASTINGP ERFORMED BY: [facility]Saint [facility] Dwrlfu1377 [facility] [id number] Immature granulocytes/100 WBC (Bld) 0 % Normal [facility] Work Phone: Comment on above: PATIENT WAS FASTINGP ERFORMED BY: [place] 7348670 [facility] [id number] Lymphocytes (Bld) [#/Vol] 2.0 {x10E3/uL} Normal 0.7-3.1 [facility] Work Phone: Comment on above: PATIENT WAS FASTINGP ERFORMED BY: [address] [id number] Lymphocytes (Bld) [#/Vol] 2.0 10*3/uL Normal 0.7-3.1 [facility]; [facility] Work Phone: Comment on above: PATIENT WAS FASTINGP ERFORMED BY: [place] 7348670 [facility] [id number] Lymphocytes Auto #/vol (Bld) 2.0 {x10E3/uL} Normal 0.7-3.1 [facility] Work Phone: Lymphocytes/100 WBC (Bld) 33 % Normal [facility] Work Phone: Comment on above: PATIENT WAS FASTINGP ERFORMED BY: [place] 7348670 [facility] [id number] Lymphocytes/100 WBC Auto (Bld) 33 % Normal [facility] Work Phone: MCH (RBC) [Entitic mass] 30.9 pg Normal 26.6-33.0 [facility] Work Phone: Comment on above: PATIENT WAS FASTINGP ERFORMED BY: [place] 7348670 [facility] [id number] MCH Auto Entitic mass (RBC) 30.9 pg Normal 26.6-33.0 [facility] Work Phone: MCHC (RBC) [Mass/Vol] 32.2 g/dL Normal 31.5-35.7 [facility] Internal Medicine Work Phone: Comment on above: PATIENT WAS FASTINGP ERFORMED BY: RUBEN [facility] Rpeepq8307 [facility] [id number] MCHC Auto mass conc (RBC) 32.2 g/dL Normal 31.5-35.7 [facility] Internal Medicine Work Phone: MCV (RBC) [Entitic vol] 96 fL Normal 79-97 [facility] Work Phone: Comment on above: PATIENT WAS FASTINGP ERFORMED BY: RUBEN [facility] Jyxmnn7768 [facility] [id number] MCV Auto Entitic volume (RBC) 96 fL Normal 79-97 [facility] Internal Medicine Work Phone: Monocytes (Bld) [#/Vol] 0.5 {x10E3/uL} Normal 0.1-0.9 [facility] Internal Medicine Work Phone: Comment on above: PATIENT WAS FASTINGP ERFORMED BY: RUBEN [facility]6370 [facility] [id number] Monocytes (Bld) [#/Vol] 0.5 10*3/uL Normal 0.1-0.9 [facility]; [facility] Work Phone: Comment on above: PATIENT WAS FASTINGP ERFORMED BY: [facility]6370 [facility] [id number] Monocytes Auto #/vol (Bld) 0.5 {x10E3/uL} Normal 0.1-0.9 [facility] Work Phone: Monocytes/100 WBC (Bld) 9 % Normal Comprehensive Internal Medicine Work Phone: Comment on above: PATIENT WAS FASTINGP ERFORMED BY: [facility]6370 [facility] [id number] Monocytes/100 WBC Auto (Bld) 9 % Normal [facility] Work Phone: Neutrophils (Bld) [#/Vol] 3.4 {x10E3/uL} Normal 1.4-7.0 [facility] Work Phone: Comment on above: PATIENT WAS FASTINGP ERFORMED BY: [facility] Xmadtr1128 Shukla RoadDublin [place] [id number] Neutrophils (Bld) [#/Vol] 3.4 10*3/uL Normal 1.4-7.0 [facility]; [facility] Work Phone: Comment on above: PATIENT WAS FASTINGP ERFORMED BY: [facility]bl[address] [place] [id number] Neutrophils Auto #/vol (Bld) 3.4 {x10E3/uL} Normal 1.4-7.0 [facility] Work Phone: Neutrophils/100 WBC (Bld) 55 % Normal [facility] Work Phone: Comment on above: PATIENT WAS FASTINGP ERFORMED BY: [facility] [facility] [place] [id number] Neutrophils/100 WBC Auto (Bld) 55 % Normal [facility] Work Phone: Platelets (Bld) [#/Vol] 307 {x10E3/uL} Normal 150-379 [facility] Work Phone: Comment on above: PATIENT WAS FASTINGP ERFORMED BY: [facility] [facility]in [place] [id number] Platelets (Bld) [#/Vol] 307 10*3/uL Normal 150-379 [facility]; [facility] Work Phone: Comment on above: PATIENT WAS FASTINGP ERFORMED BY: [facility] Ehagsq[address] [facility] Hospitalbl[facility] [place] [id number] Platelets Auto #/vol (Bld) 307 {x10E3/uL} Normal 150-379 [facility] Work Phone: RBC (Bld) [#/Vol] 4.24 {x10E6/uL} Normal 3.77-5.28 [facility] Internal Medicine Work Phone: Comment on above: PATIENT WAS FASTINGP ERFORMED BY: RUBEN Lorriehiro Xgxovk5403 [facility] [id number] RBC (Bld) [#/Vol] 4.24 10*6/uL Normal 3.77-5.28 [facility]; [facility] Work Phone: Comment on above: PATIENT WAS FASTINGP ERFORMED BY: RUBEN Lorrie Cojfhm9308 [facility] [id number] RBC Auto #/vol (Bld) 4.24 {x10E6/uL} Normal 3.77-5.28 [facility] Work Phone: WBC (Bld) [#/Vol] 6.0 {x10E3/uL} Normal 3.4-10.8 [facility] Internal Medicine Work Phone: Comment on above: PATIENT WAS FASTINGP ERFORMED BY: RUBEN MelodyParker Lpqyfc4294 [facility] [id number] WBC (Bld) [#/Vol] 6.0 10*3/uL Normal 3.4-10.8 [facility] Internal Medicine; [facility] Work Phone: Comment on above: PATIENT WAS FASTINGP ERFORMED BY: RUBEN Lorriehiro Fgnqyf3744 [facility] [id number] WBC Auto #/vol (Bld) 6.0 {x10E3/uL} Normal 3.4-10.8 [facility] Work Phone: LIPID PANEL ([id number])Ordered B y: Die Sizer on 05-09-2017 Cholesterol in HDL mass conc 66 mg/dL Normal [facility] Work Phone: Comment on above: PATIENT WAS FASTINGP ERFORMED BY: RUBEN Angy Trevinolin6370 [facility] [id number] Cholesterol in LDL mass conc 87 mg/dL Normal 0-99 [facility] Work Phone: Comment on above: PATIENT WAS FASTINGP ERFORMED BY: RUBEN LabMananHoly Name Medical CenterVejfir1074 [facility] [id number] Cholesterol in LDL/Cholesterol in HDL mass ratio 1.3 {ratio_units} Normal 0.0-3.2 [facility] Work Phone: Comment on above: LDL/HDL Ratio Men Wo men 1/2 Avg.Risk 1.0 1.5 Avg.Risk 3.6 3.2 2X Avg.Risk 6.2 5.0 3X Avg.Risk 8.0 6.1 PATIENT WAS FASTINGP ERFORMED BY: RUBEN LabCo Ghnwdi5110 [facility] [id number] Cholesterol in VLDL mass conc 15 mg/dL Normal 5-40 [facility] Work Phone: Comment on above: PATIENT WAS FASTINGP ERFORMED BY: RUBEN Lorrie Minmnp5072 [facility] [id number] Cholesterol mass conc 168 mg/dL Normal 100-199 [facility] prehensive Internal Medicine Work Phone: Comment on above: PATIENT WAS FASTINGP ERFORMED BY: RUBEN LabManan Mpptde8323 [facility] [id number] Triglyceride mass conc 73 mg/dL Normal 0-149 [facility] Work Phone: Comment on above: PATIENT WAS FASTINGP ERFORMED BY: RUBEN Lorrie Lywvwg4425 [facility] [id number] METABOLIC PANEL, COMPREHENSI VE ([id number])Ordered By: Die Sizer on 05-09-2017 Albumin mass conc 4.6 g/dL Normal 3.5-5.5 Compreh ensive Internal Medicine Work Phone: Comment on above: PATIENT WAS FASTINGP ERFORMED BY: [facility] Cssoqb5990 [facility] [id number] Albumin/Globulin mass ratio 1.8 {ratio} Normal 1.2-2.2 [facility] Work Phone: Comment on above: PATIENT WAS FASTINGP ERFORMED BY: RUBEN [facility] Ikifno5584 [facility] [id number] ALP [Catalytic activity/Vol] 50 U/L Normal 39-117 [facility]; [facility] Work Phone: Comment on above: PATIENT WAS FASTINGP ERFORMED BY: RUBEN Amaro[address]Dublin [place] [id number] ALP enzyme act/vol 50 [iU]/L Normal 39-117 [facility] Internal Medicine Work Phone: Comment on above: PATIENT WAS FASTINGP ERFORMED BY: RUBEN Amaro[address]Dublin [place] [id number] ALT [Catalytic activity/Vol] 9 U/L Normal 0-32 [facility]; [facility] Internal Medicine Work Phone: Comment on above: PATIENT WAS FASTINGP ERFORMED BY: RUBEN Amaro[address]Dublin [place] [id number] ALT enzyme act/vol 9 [iU]/L Normal 0-32 [facility] Internal Medicine Work Phone: Comment on above: PATIENT WAS FASTINGP ERFORMED BY: RUBEN Amaro[address]Dublin [place] [id number] AST [Catalytic activity/Vol] 17 U/L Normal 0-40 [facility] Internal Medicine; [facility] Internal Medicine Work Phone: Comment on above: PATIENT WAS FASTINGP ERFORMED BY: RUBEN Amaro[address]ublin [place] [id number] AST enzyme act/vol 17 [iU]/L Normal 0-40 [facility] Internal Medicine Work Phone: Comment on above: PATIENT WAS FASTINGP ERFORMED BY: RUBEN Trevinolin[address] [facility] Care[facility] JacksonD[place] [id number] Bilirubin mass conc 0.4 mg/dL Normal 0.0-1.2 [facility] Internal Medicine Work Phone: Comment on above: PATIENT WAS FASTINGP ERFORMED BY: RUBEN Trevinolin[address]ublin [place] [id number] Calcium mass conc 9.7 mg/dL Normal 8.7-10.2 [facility] Internal Medicine Work Phone: Comment on above: PATIENT WAS FASTINGP ERFORMED BY: CB [facility] [facility]in [place] [id number] Chloride molar conc 95 mmol/L Abnormal 96-106 Compr ensive Internal Medicine Work Phone: Comment on above: PATIENT WAS FASTINGP ERFORMED BY: LabSaint [facility] Buvurt[address] [facility]in [place] [id number] CO2 molar conc 27 mmol/L Normal 18-29 Comprehens иван Internal Medicine Work Phone: Comment on above: PATIENT WAS FASTINGP ERFORMED BY: [facility] Ergntk9047 [facility] [id number] Creatinine mass conc 0.78 mg/dL Normal 0.57-1.00 [facility] Work Phone: Comment on above: PATIENT WAS FASTINGP ERFORMED BY: [facility] Capllc6415 [facility] [id number] GFR/1.73 sq M predicted among blacks CKD-EPI vol rate/area (S/P/Bld) 104 mL/min/1.73 Normal Comprehensiv e Internal Medicine Work Phone: Comment on above: PATIENT WAS FASTINGP ERFORMED BY: [facility]6370 [facility] [id number] GFR/1.73 sq M predicted among non-blacks CKD-EPI vol rate/area (S/P/Bld) 90 mL/min/1.73 Normal [facility] Work Phone: Comment on above: PATIENT WAS FASTINGP ERFORMED BY: [facility]6370 [facility] [id number] Globulin (S) [Mass/Vol] 2.5 g/dL Normal 1.5-4.5 [facility] Work Phone: Comment on above: PATIENT WAS FASTINGP ERFORMED BY: [facility] Unoaby8433 [facility] [id number] Globulin Calculated mass conc (S) 2.5 g/dL Normal 1.5-4.5 [facility] Work Phone: Glucose mass conc 79 mg/dL Normal 65-99 Compreh ensive Internal Medicine Work Phone: Comment on above: PATIENT WAS FASTINGP ERFORMED BY: RUBEN MelodyParker TrevinoWtorth0258 [facility] [id number] Potassium molar conc 4.6 mmol/L Normal 3.5-5.2 Comp rehensive Internal Medicine Work Phone: Comment on above: PATIENT WAS FASTINGP ERFORMED BY: RUBEN MelodyParker TrevinoDwvbsm3492 [facility] [id number] Protein mass conc 7.1 g/dL Normal 6.0-8.5 Compreh ensive Internal Medicine Work Phone: Comment on above: PATIENT WAS FASTINGP ERFORMED BY: RUBEN Trevinolin6370 [facility] [id number] Sodium molar conc 137 mmol/L Normal 134-144 Compreh ensive Internal Medicine Work Phone: Comment on above: PATIENT WAS FASTINGP ERFORMED BY: RUEBN Amaro6370 [facility] [id number] Urea nitrogen mass conc 17 mg/dL Normal 6-24 [facility] Work Phone: Comment on above: PATIENT WAS FASTINGP ERFORMED BY: RUBEN Trevinolin6370 [facility] [id number] Urea nitrogen/Creatinine mass ratio 22 mg/mg Normal 9-23 [facility] Work Phone: Comment on above: PATIENT WAS FASTINGP ERFORMED BY: RUBEN Trevinolin6370 [facility] [id number] MICROALBUMINOrdered By: Syst em Senior Accountant on 05-09-2017 Albumin DL <= 20 mg/L (U) [Mass/Vol] mg/dL Normal [facility]; [facility] Work Phone: Comment on above: PATIENT WAS FASTINGP ERFORMED BY: RUBEN Trevinolin6370 [facility] [id number] Albumin DL <= 20 mg/L mass conc (U) mg/dL Normal [facility] Work Phone: Comment on above: PATIENT WAS FASTINGP ERFORMED BY: [employer] Necsqh7861 [facility] [id number] Albumin/Creatinine mass ratio (U) MALD Abnormal 0.0-30.0 [facility] Work Phone: Comment on above: This result is below the assay's limit of quantitation indicating adilute specimen, potentially due to diurnal variation. Considerrecollection at a time likely to provide a more concentrated urine. PATIENT WAS FASTINGP ERFORMED BY: [employer] Jwrsxm7607 [facility] [id number] Creatinine mass conc (U) 39.6 mg/dL Normal [facility] Work Phone: Comment on above: PATIENT WAS FASTINGP ERFORMED BY: RUBEN iOculi6370 [facility] [id number] Microscopic ExaminationOrder ed By: Die Sizer on 05-09-2017 Bacteria LM.HPF #/area (Urine sed) Few Normal [facility] Work Phone: Epithelial cells LM.HPF #/area (Urine sed) 0-10 Normal 0 - 10 [facility] Work Phone: RBC LM.HPF #/area (Urine sed) 0-2 Normal 0 - 2 [facility] Work Phone: WBC LM.HPF #/area (Urine sed) None seen Normal 0 - 5 [facility] Work Phone: TSH ([id number])Ordered By: Syste m Senior Accountant on 05-09-2017 Thyrotropin Qn 2.140 {uIU/mL} Normal 0.450-4.500 Compr ehensive Internal Medicine Work Phone: Comment on above: PATIENT WAS FASTINGP ERFORMED BY: [employer] Mvlhpl9173 [facility] [id number] URINALYSIS, W/ MICRO ([id number]) Ordered By: Die Sizer on 05-09-2017 Appearance Nom (U) Clear Normal Compre hensive Internal Medicine Work Phone: Comment on above: PATIENT WAS FASTINGP ERFORMED BY: [employer]People Iymexv2554 [facility] [id number] Bilirubin Ql (U) Negative Normal Comprehe nsive Internal Medicine Work Phone: Comment on above: PATIENT WAS FASTINGP ERFORMED BY: RUBEN Amaro[address]Dublin [place] [id number] Bilirubin Ql (U) Negative Normal Comprehe nsive Internal Medicine; [facility] Work Phone: Comment on above: PATIENT WAS FASTINGP ERFORMED BY: RUBEN [address] [facility]bl[facility] [place] [id number] Color Nom (U) Yellow Normal Comprehensi ve Internal Medicine Work Phone: Comment on above: PATIENT WAS FASTINGP ERFORMED BY: RUBEN Cerda [address] [facility] [id number] Glucose Ql (U) Negative Normal Comprehens иван Internal Medicine Work Phone: Comment on above: PATIENT WAS FASTINGP ERFORMED BY: RUBEN Cerda [address] [facility] [id number] Glucose Ql (U) Negative Normal Comprehens иван Internal Medicine; [facility] Work Phone: Comment on above: PATIENT WAS FASTINGP ERFORMED BY: RUBEN Cerda [address] [facility] [id number] Hemoglobin Ql (U) Negative Normal Compreh ensive Internal Medicine Work Phone: Comment on above: PATIENT WAS FASTINGP ERFORMED BY: RUBEN [address] [facility] [id number] Hemoglobin Ql (U) Negative Normal Compreh ensive Internal Medicine; [facility] Work Phone: Comment on above: PATIENT WAS FASTINGP ERFORMED BY: RUBEN Amaro[address] [facility] [id number] Hemoglobin Test strip Ql (U) Negative Normal [facility] Work Phone: Ketones Ql (U) Negative Normal Comprehens иван Internal Medicine Work Phone: Comment on above: PATIENT WAS FASTINGP ERFORMED BY: RUBEN Trevinolin6370 [facility] [id number] Ketones Ql (U) Negative Normal Comprehens иван Internal Medicine; [facility] Work Phone: Comment on above: PATIENT WAS FASTINGP ERFORMED BY: MelodyAaron V[place] 7[address]98[address] [facility] [id number] Leukocyte esterase Test strip Ql (U) Negative Normal [facility] Work Phone: Comment on above: PATIENT WAS FASTINGP ERFORMED BY: [place] [address] [facility] [id number] Leukocyte esterase Test strip Ql (U) Negative Normal [facility]; [facility] Work Phone: Comment on above: PATIENT WAS FASTINGP ERFORMED BY: [place] 7348670 [facility] [id number] Microscopic observation LM Nom (Urine sed) MICRON Normal [facility] Work Phone: Comment on above: Microscopic follows if indicated. PATIENT WAS FASTINGP ERFORMED BY: [place] 7348670 [facility] [id number] Microscopic observation LM Nom (Urine sed) See below: Normal [facility] Work Phone: Comment on above: Microscopic was evita cated and was performed. PATIENT WAS FASTINGP ERFORMED BY: [place] [address]86[address] [facility] [id number] Nitrite Ql (U) Negative Normal Comprehens иван Internal Medicine Work Phone: Comment on above: PATIENT WAS FASTINGP ERFORMED BY: [place] [address] [facility] [id number] Nitrite Ql (U) Negative Normal Comprehens иван Internal Medicine; [facility] Work Phone: Comment on above: PATIENT WAS FASTINGP ERFORMED BY: [place] [address] [facility] [id number] Nitrite Test strip Ql (U) Negative Normal [facility] Work Phone: pH (U) 7.0 [pH] Normal 5.0-7.5 [facility] Work Phone: Comment on above: PATIENT WAS FASTINGP ERFORMED BY: RUBEN [facility]Co Rbvvog3477 [address]blin [place] [id number] pH Test strip (U) 7.0 [pH] Normal 5.0-7.5 Compreh ensive Internal Medicine Work Phone: Protein Ql (U) Negative Normal Comprehens иван Internal Medicine Work Phone: Comment on above: PATIENT WAS FASTINGP ERFORMED BY: RUBEN LabCo Gjatwn4663 [address] RoadSwain [facility] Hospitalin [place] [id number] Protein Ql (U) Negative Normal Comprehens иван Internal Medicine; [facility] Work Phone: Comment on above: PATIENT WAS FASTINGP ERFORMED BY: RUBEN LabManan Vzqzhf0119 Shukla RoadNovant Health [facility] [id number] Protein Test strip Ql (U) Negative Normal [facility] Work Phone: Specific gravity Relative Density (U) 1.010 1 Normal 1.005-1.030 Comprehensi ve Internal Medicine Work Phone: Comment on above: PATIENT WAS FASTINGP ERFORMED BY: RUBEN [facility]Co Isdizt5869 [facility] [id number] Urobilinogen (U) [Mass/Vol] 0.2 mg/dL Normal 0.2-1.0 [facility]; [facility] Work Phone: Comment on above: PATIENT WAS FASTINGP ERFORMED BY: [facility] Uviiad4488 [address] [facility] [id number] Urobilinogen Test strip mass conc (U) 0.2 mg/dL Normal 0.2-1.0 Comprehensiv e Internal Medicine Work Phone: Comment on above: PATIENT WAS FASTINGP ERFORMED BY: RUBEN [facility] Znoqxy5665 [facility] [id number] PAP I-G w/rfx hrHPVOrdered B y: Die Sizer on 11-28-2016 COMM . Normal [facility] [...] no HPV testing was performed.Performed at: - [facility] [address] [id number] Director: Bess Cross MD, Phone: [phone] CALCIFIDIOL (41735) VIT D 25 Ordered By: Die Sizer on 10-25-2016 25-Hydroxyvitamin D2+25-Hydroxyvitamin D3 mass conc 67.7 ng/mL Normal 30.0-100.0 [facility] Work Phone: Comment on above: Vitamin D deficiency has been defined by the [place] ofMedicine and an Endocrine Society practice guideline as alevel of serum 25-OH vitamin D less than 20 ng/mL (1,2).The Endocrine Society went on to further define vitamin Dinsufficiency as a level between 21 and 29 ng/mL (2).1. IOM ([place] of Medicine). 2010. Dietary reference intakes for calcium and D. [place]: The National Academies Press.2. Krystal MF, Ashtyn [place], Troy-Rufino FLEMING, et al. Evaluation, treatment, and prevention of vitamin D deficiency: an Endocrine Society clinical practice guideline. JCEM. 2010; 96(7):1911-30. PATIENT WAS FASTINGP ERFORMED BY: [facility] Qxnjfi6023 Shukla RoadDublUofL Health - [facility] [id number]; fu 4-24 kf CBC WITH MANUAL DIFF ([id number]) Ordered By: Die Sizer on 10-25-2016 Basophils (Bld) [#/Vol] 0.1 {x10E3/uL} Normal 0.0-0.2 [facility] Work Phone: Comment on above: PATIENT WAS FASTINGP ERFORMED BY: [address] [id number] Basophils (Bld) [#/Vol] 0.1 10*3/uL Normal 0.0-0.2 [facility]; [facility] Work Phone: Comment on above: PATIENT WAS FASTINGP ERFORMED BY: [address] [id number] Basophils Auto #/vol (Bld) 0.1 {x10E3/uL} Normal 0.0-0.2 [facility] Work Phone: Basophils/100 WBC (Bld) 1 % Normal [facility] Work Phone: Comment on above: PATIENT WAS FASTINGP ERFORMED BY: [address] [id number] Basophils/100 WBC Auto (Bld) 1 % Normal [facility] Work Phone: Eosinophils (Bld) [#/Vol] 0.1 {x10E3/uL} Normal 0.0-0.4 [facility] Work Phone: Comment on above: PATIENT WAS FASTINGP ERFORMED BY: [address] [id number] Eosinophils (Bld) [#/Vol] 0.1 10*3/uL Normal 0.0-0.4 [facility]; [facility] Work Phone: Comment on above: PATIENT WAS FASTINGP ERFORMED BY: [address] [id number] Eosinophils Auto #/vol (Bld) 0.1 {x10E3/uL} Normal 0.0-0.4 [facility] Work Phone: Eosinophils/100 WBC (Bld) 1 % Normal [facility] Work Phone: Comment on above: PATIENT WAS FASTINGP ERFORMED BY: RUBEN [facility] Tvyjxa0518 [address] [facility] [id number] Eosinophils/100 WBC Auto (Bld) 1 % Normal [facility] Work Phone: Erythrocyte distribution width (RBC) [Ratio] 13.1 % Normal 12.3-15.4 [facility] Work Phone: Comment on above: PATIENT WAS FASTINGP ERFORMED BY: RUBEN [facility] Xpzvgm9974 [address] [facility] [id number] Erythrocyte distribution width Auto Ratio (RBC) 13.1 % Normal 12.3-15.4 [facility] Work Phone: Hematocrit (Bld) [Volume fraction] 40.8 % Normal 34.0-46.6 [facility] Work Phone: Comment on above: PATIENT WAS FASTINGP ERFORMED BY: RUBEN LabParker TrevinoMulslt7204 [facility] [id number] Hematocrit Auto Volume Fraction (Bld) 40.8 % Normal 34.0-46.6 [facility] Internal Medicine Work Phone: Hemoglobin mass conc (Bld) 12.9 g/dL Normal 11.1-15.9 [facility] Work Phone: Comment on above: PATIENT WAS FASTINGP ERFORMED BY: RUBEN LabCohiro TrevinoJrfios6351 [facility] [id number] Immature granulocytes #/vol (Bld) 0.0 {x10E3/uL} Normal 0.0-0.1 [facility] Work Phone: Comment on above: PATIENT WAS FASTINGP ERFORMED BY: [facility] Prtwou9[address] [facility] [place] [id number] Immature granulocytes (Bld) [#/Vol] 0.0 10*3/uL Normal 0.0-0.1 [facility]; [facility] Work Phone: Comment on above: PATIENT WAS FASTINGP ERFORMED BY: RUBEN [facility] Asjbma[address] [facility] [id number] Immature granulocytes/100 WBC (Bld) 0 % Normal [facility] Work Phone: Comment on above: PATIENT WAS FASTINGP ERFORMED BY: RUBEN Trevinolin6370 [facility] [id number] Lymphocytes (Bld) [#/Vol] 2.3 {x10E3/uL} Normal 0.7-3.1 [facility] Work Phone: Comment on above: PATIENT WAS FASTINGP ERFORMED BY: RUBEN Andrew Ihyyic[address] [id number] Lymphocytes (Bld) [#/Vol] 2.3 10*3/uL Normal 0.7-3.1 [facility]; [facility] Work Phone: Comment on above: PATIENT WAS FASTINGP ERFORMED BY: RUBEN Trevino[address] [id number] Lymphocytes Auto #/vol (Bld) 2.3 {x10E3/uL} Normal 0.7-3.1 [facility] Work Phone: Lymphocytes/100 WBC (Bld) 32 % Normal [facility] Work Phone: Comment on above: PATIENT WAS FASTINGP ERFORMED BY: RUBEN Amaro[address] [place] [address] [id number] Lymphocytes/100 WBC Auto (Bld) 32 % Normal [facility] Work Phone: MCH (RBC) [Entitic mass] 31.2 pg Normal 26.6-33.0 [facility] Work Phone: Comment on above: PATIENT WAS FASTINGP ERFORMED BY: RUBEN [place] [id number] [facility] [id number] MCH Auto Entitic mass (RBC) 31.2 pg Normal 26.6-33.0 [facility] Work Phone: MCHC (RBC) [Mass/Vol] 31.6 g/dL Normal 31.5-35.7 [facility] prehensive Internal Medicine Work Phone: Comment on above: PATIENT WAS FASTINGP ERFORMED BY: [facility]6370 [facility] [id number] MCHC Auto mass conc (RBC) 31.6 g/dL Normal 31.5-35.7 [facility] Work Phone: MCV (RBC) [Entitic vol] 99 fL Abnormal 79-97 [facility] Work Phone: Comment on above: PATIENT WAS FASTINGP ERFORMED BY: [facility]6370 [facility] [id number] MCV Auto Entitic volume (RBC) 99 fL Abnormal 79-97 [facility] Work Phone: Monocytes (Bld) [#/Vol] 0.5 {x10E3/uL} Normal 0.1-0.9 [facility] Work Phone: Comment on above: PATIENT WAS FASTINGP ERFORMED BY: [place] 7348670 [facility] [id number] Monocytes (Bld) [#/Vol] 0.5 10*3/uL Normal 0.1-0.9 [facility]; [facility] Work Phone: Comment on above: PATIENT WAS FASTINGP ERFORMED BY: [facility]6370 [facility] [id number] Monocytes Auto #/vol (Bld) 0.5 {x10E3/uL} Normal 0.1-0.9 [facility] Work Phone: Monocytes/100 WBC (Bld) 7 % Normal [facility] Work Phone: Comment on above: PATIENT WAS FASTINGP ERFORMED BY: [facility]6370 [facility] [id number] Monocytes/100 WBC Auto (Bld) 7 % Normal [facility] Work Phone: Neutrophils (Bld) [#/Vol] 4.1 {x10E3/uL} Normal 1.4-7.0 [facility] Work Phone: Comment on above: PATIENT WAS FASTINGP ERFORMED BY: [place] [id number] [facility] [id number] Neutrophils (Bld) [#/Vol] 4.1 10*3/uL Normal 1.4-7.0 [facility]; [facility] Work Phone: Comment on above: PATIENT WAS FASTINGP ERFORMED BY: CB [facility] Aeieke9343 [address] RoadDublin [place] [id number] Neutrophils Auto #/vol (Bld) 4.1 {x10E3/uL} Normal 1.4-7.0 [facility] Work Phone: Neutrophils/100 WBC (Bld) 59 % Normal [facility] Work Phone: Comment on above: PATIENT WAS FASTINGP ERFORMED BY: CB [facility] Cyojud8838 [address] RoadDublin [place] [id number] Neutrophils/100 WBC Auto (Bld) 59 % Normal [facility] Work Phone: Platelets (Bld) [#/Vol] 357 {x10E3/uL} Normal 150-379 [facility] Work Phone: Comment on above: PATIENT WAS FASTINGP ERFORMED BY: RUBEN [facility] Kauapp6413 [address]blin [place] [id number] Platelets (Bld) [#/Vol] 357 10*3/uL Normal 150-379 [facility]; [facility] Work Phone: Comment on above: PATIENT WAS FASTINGP ERFORMED BY: CB [facility] Tkoxpb3721 [address] Roadblin [place] [id number] Platelets Auto #/vol (Bld) 357 {x10E3/uL} Normal 150-379 [facility] Work Phone: RBC (Bld) [#/Vol] 4.13 {x10E6/uL} Normal 3.77-5.28 [facility] Internal Medicine Work Phone: Comment on above: PATIENT WAS FASTINGP ERFORMED BY: CB [facility] Fsjcdr4306 [address] RoadDublin [place] [id number] RBC (Bld) [#/Vol] 4.13 10*6/uL Normal 3.77-5.28 Compr ehensive Internal Medicine; [facility] Work Phone: Comment on above: PATIENT WAS FASTINGP ERFORMED BY: RUBEN openPeoplehiro Jtdhvz5085 [facility] [id number] RBC Auto #/vol (Bld) 4.13 {x10E6/uL} Normal 3.77-5.28 [facility] Work Phone: WBC (Bld) [#/Vol] 7.0 {x10E3/uL} Normal 3.4-10.8 [facility] Internal Medicine Work Phone: Comment on above: PATIENT WAS FASTINGP ERFORMED BY: RUBEN openPeoplehiro Dyalzb8598 [facility] [id number] WBC (Bld) [#/Vol] 7.0 10*3/uL Normal 3.4-10.8 [facility] Medicine; [facility] Work Phone: Comment on above: PATIENT WAS FASTINGP ERFORMED BY: RUBEN openPeople Sbtpot6633 [facility] [id number] WBC Auto #/vol (Bld) 7.0 {x10E3/uL} Normal 3.4-10.8 [facility] Work Phone: Lipid Panel (78171)Ordered B y: Die Sizer on 10-25-2016 Cholesterol in HDL mass conc 63 mg/dL Normal [facility] Work Phone: Comment on above: PATIENT WAS FASTINGP ERFORMED BY: RUBEN openPeople Ajbmof3146 [facility] [id number] Cholesterol in LDL mass conc 89 mg/dL Normal 0-99 [facility] Work Phone: Comment on above: PATIENT WAS FASTINGP ERFORMED BY: RUBEN openPeople Ehvgxf7231 [facility] [id number] Cholesterol in LDL/Cholesterol in HDL mass ratio 1.4 {ratio_units} Normal 0.0-3.2 [facility] Work Phone: Comment on above: LDL/HDL Ratio Men Wo men 1/2 Avg.Risk 1.0 1.5 Avg.Risk 3.6 3.2 2X Avg.Risk 6.2 5.0 3X Avg.Risk 8.0 6.1 PATIENT WAS FASTINGP ERFORMED BY: RUBEN [facility] Njfqmx7801 [facility] [id number] Cholesterol in VLDL mass conc 17 mg/dL Normal 5-40 [facility] Work Phone: Comment on above: PATIENT WAS FASTINGP ERFORMED BY: RUBEN [facility] Mttqwi5144 [facility] [id number] Cholesterol mass conc 169 mg/dL Normal 100-199 [facility] prehensive Internal Medicine Work Phone: Comment on above: PATIENT WAS FASTINGP ERFORMED BY: RUBEN [facility] Kguodp1670 [facility] [id number] Triglyceride mass conc 83 mg/dL Normal 0-149 [facility] Work Phone: Comment on above: PATIENT WAS FASTINGP ERFORMED BY: RUBEN [facility]6370 [facility] [id number] MICROALBUMINOrdered By: Syst em Senior Accountant on 10-25-2016 Albumin DL <= 20 mg/L mass conc (U) 10.7 ug/mL Normal [facility] Work Phone: Comment on above: PATIENT WAS FASTINGP ERFORMED BY: RUBEN [facility] Nnwmqe8841 [facility] [id number] Albumin/Creatinine mass ratio (U) 6.5 {mg/g_creat} Normal 0.0-30.0 [facility] Work Phone: Comment on above: PATIENT WAS FASTINGP ERFORMED BY: RUBEN [facility] Nuxvec0144 [facility] [id number] Creatinine mass conc (U) 164.8 mg/dL Normal [facility] Work Phone: Comment on above: PATIENT WAS FASTINGP ERFORMED BY: RUBEN [facility] Mgrkta[address] [facility] [id number] Metabolic Panel, Comprehensi ve ([id number])Ordered By: Die Sizer on 10-25-2016 Albumin mass conc 4.5 g/dL Normal 3.5-5.5 [facility] Internal Medicine Work Phone: Comment on above: PATIENT WAS FASTINGP ERFORMED BY: RUBEN LabCohiro Nmzuht8332 [address] RoadDublin [place] [id number] Albumin/Globulin mass ratio 1.8 {ratio} Normal 1.2-2.2 [facility] Work Phone: Comment on above: PATIENT WAS FASTINGP ERFORMED BY: RUBEN [facility] Cazbcm8395 [address] RoadDublin [place] [id number] ALP [Catalytic activity/Vol] 54 U/L Normal 39-117 [facility]; [facility] Internal Medicine Work Phone: Comment on above: PATIENT WAS FASTINGP ERFORMED BY: RUBEN LabCohiro TrevinoIoyakp8502 [address] RoadDublin [place] [id number] ALP enzyme act/vol 54 [iU]/L Normal 39-117 [facility] Internal Medicine Work Phone: Comment on above: PATIENT WAS FASTINGP ERFORMED BY: [facility] Fmuxim7117 [address] RoadDublin [place] [id number] ALT [Catalytic activity/Vol] 10 U/L Normal 0-32 [facility]; [facility] Internal Medicine Work Phone: Comment on above: PATIENT WAS FASTINGP ERFORMED BY: LabCohiro Njypod3009 [address] RoadDublin [place] [id number] ALT enzyme act/vol 10 [iU]/L Normal 0-32 [facility] Internal Medicine Work Phone: Comment on above: PATIENT WAS FASTINGP ERFORMED BY: [facility] Bnjdsu7944 [address] RoadDublin [place] [id number] AST [Catalytic activity/Vol] 13 U/L Normal 0-40 [facility]; [facility] Internal Medicine Work Phone: Comment on above: PATIENT WAS FASTINGP ERFORMED BY: [facility] Tslgvl7387 [address] RoadDublin [place] [id number] AST enzyme act/vol 13 [iU]/L Normal 0-40 [facility] Internal Medicine Work Phone: Comment on above: PATIENT WAS FASTINGP ERFORMED BY: RUBEN [facility] Mjitzb7764 [address] RoadDublin [place] [id number] Bilirubin mass conc 0.4 mg/dL Normal 0.0-1.2 Compr ensive Internal Medicine Work Phone: Comment on above: PATIENT WAS FASTINGP ERFORMED BY: RUBEN [facility] Oiubfm6789 [address] RoadDublin [place] [id number] Calcium mass conc 9.6 mg/dL Normal 8.7-10.2 Compreh ensive Internal Medicine Work Phone: Comment on above: PATIENT WAS FASTINGP ERFORMED BY: CB [facility] Xbrimm5378 [address] RoadDublin [place] [id number] Chloride molar conc 97 mmol/L Normal 96-106 Compr [facility] Internal Medicine Work Phone: Comment on above: PATIENT WAS FASTINGP ERFORMED BY: RUBEN [facility] Oepbhv7154 [address] RoadDublin [place] [id number] CO2 molar conc 26 mmol/L Normal 18-29 Comprehens иван Internal Medicine Work Phone: Comment on above: PATIENT WAS FASTINGP ERFORMED BY: RUBEN [facility] Lfjyyg9138 [address]blin [place] [id number] Creatinine mass conc 0.84 mg/dL Normal 0.57-1.00 Comp [facility] hospitalensive [facility] Work Phone: Comment on above: PATIENT WAS FASTINGP ERFORMED BY: RUBEN [facility] Wzhnmw0000 Sh[address]la RoadSwain Community Hospitalin [place] [id number] GFR/1.73 sq M predicted among blacks CKD-EPI vol rate/area (S/P/Bld) 95 mL/min/1.73 Normal Comprehensiv e Internal Medicine Work Phone: Comment on above: PATIENT WAS FASTINGP ERFORMED BY: CB [facility] Ajauvs6218 [address] RoadDublin [place] [id number] GFR/1.73 sq M predicted among non-blacks CKD-EPI vol rate/area (S/P/Bld) 82 mL/min/1.73 Normal [facility] Work Phone: Comment on above: PATIENT WAS FASTINGP ERFORMED BY: RUBEN [facility] Uhuetq0531 [address] RoadDublin [place] [id number] Globulin (S) [Mass/Vol] 2.5 g/dL Normal 1.5-4.5 [facility] Work Phone: Comment on above: PATIENT WAS FASTINGP ERFORMED BY: RUBEN [facility] Kybaxn2113 [address] RoadDublin [place] [id number] Globulin Calculated mass conc (S) 2.5 g/dL Normal 1.5-4.5 [facility] Work Phone: Glucose mass conc 88 mg/dL Normal 65-99 Compreh ensive Internal Medicine Work Phone: Comment on above: PATIENT WAS FASTINGP ERFORMED BY: RUBEN [facility] Ebxgkz8306 [address] RoadDublin [place] [id number] Potassium molar conc 4.3 mmol/L Normal 3.5-5.2 Comp rehensive Internal Medicine Work Phone: Comment on above: PATIENT WAS FASTINGP ERFORMED BY: RUBEN [facility] Ludzfl4587 [address] RoadDublin [place] [id number] Protein mass conc 7.0 g/dL Normal 6.0-8.5 Compreh ensive Internal Medicine Work Phone: Comment on above: PATIENT WAS FASTINGP ERFORMED BY: RUBEN [facility] Gogteu6199 [address] RoadDublin [place] [id number] Sodium molar conc 140 mmol/L Normal 134-144 Compreh ensive Internal Medicine Work Phone: Comment on above: PATIENT WAS FASTINGP ERFORMED BY: RUBEN [facility] Rsxbod8466 [address] RoadDublin [place] [id number] Urea nitrogen mass conc 16 mg/dL Normal 6-24 [facility] Work Phone: Comment on above: PATIENT WAS FASTINGP ERFORMED BY: [facility] Inieag4834 [address] RoadDublin [place] [id number] Urea nitrogen/Creatinine mass ratio 19 mg/mg Normal 9-23 [facility] Work Phone: Comment on above: PATIENT WAS FASTINGP ERFORMED BY: [employer] Qpumsk4676 [facility] [id number] CALCIFIDIOL (50503) VIT D 25 Ordered By: Die Sizer on 05-31-2016 25-Hydroxyvitamin D2+25-Hydroxyvitamin D3 mass conc 78.0 ng/mL Normal 30.0-100.0 [facility] Work Phone: Comment on above: Vitamin D deficiency has been defined by the [place] ofChildren[facility]cine and an Endocrine Society practice guideline as alevel of serum 25-OH vitamin D less than 20 ng/mL (1,2).The Endocrine Society went on to further define vitamin Dinsufficiency as a level between 21 and 29 ng/mL (2).1. IOM ([place] of Medicine). 2010. Dietary reference intakes for calcium and D. [place]: The National Academies Press.2. Krystal MF, Ashtyn GREENBERG, Cassandra FLEMING, et al. Evaluation, treatment, and prevention of vitamin D deficiency: an Endocrine Society clinical practice guideline. JCEM. 2010; 96(7):1911-30. PATIENT WAS FASTINGP ERFORMED BY: [employer]6370 [facility] [id number] CBC W/AUTO DIFF WBC (17921)O rdered By: Die Sizer on 05-31-2016 Basophils (Bld) [#/Vol] 0.0 {x10E3/uL} Normal 0.0-0.2 [facility] Work Phone: Comment on above: PATIENT WAS FASTINGP ERFORMED BY: [employer] Sejwmu6375 [facility] [id number] Basophils (Bld) [#/Vol] 0.0 10*3/uL Normal 0.0-0.2 [facility]; [facility] Work Phone: Comment on above: PATIENT WAS FASTINGP ERFORMED BY: [employer] Networkslin6370 [facility] [id number] Basophils Auto #/vol (Bld) 0.0 {x10E3/uL} Normal 0.0-0.2 [facility] Work Phone: Basophils/100 WBC (Bld) 0 % Normal [facility] Work Phone: Comment on above: PATIENT WAS FASTINGP ERFORMED BY: RUBEN [place] [id number] [facility] [id number] Basophils/100 WBC Auto (Bld) 0 % Normal [facility] Work Phone: Eosinophils (Bld) [#/Vol] 0.1 {x10E3/uL} Normal 0.0-0.4 [facility] Work Phone: Comment on above: PATIENT WAS FASTINGP ERFORMED BY: RUBEN [facility] Zqgmdv8800 [facility] [id number] Eosinophils (Bld) [#/Vol] 0.1 10*3/uL Normal 0.0-0.4 [facility]; [facility] Work Phone: Comment on above: PATIENT WAS FASTINGP ERFORMED BY: RUBEN [facility] Diezei3515 [facility] [id number] Eosinophils Auto #/vol (Bld) 0.1 {x10E3/uL} Normal 0.0-0.4 [facility] Work Phone: Eosinophils/100 WBC (Bld) 1 % Normal [facility] Work Phone: Comment on above: PATIENT WAS FASTINGP ERFORMED BY: RUBEN [facility] Zfsdpa4688 [facility] [id number] Eosinophils/100 WBC Auto (Bld) 1 % Normal [facility] Work Phone: Erythrocyte distribution width (RBC) [Ratio] 13.4 % Normal 12.3-15.4 [facility] Work Phone: Comment on above: PATIENT WAS FASTINGP ERFORMED BY: RUBEN [place] [id number] [facility] [id number] Erythrocyte distribution width Auto Ratio (RBC) 13.4 % Normal 12.3-15.4 [facility] Work Phone: Hematocrit (Bld) [Volume fraction] 37.1 % Normal 34.0-46.6 [facility] Work Phone: Comment on above: PATIENT WAS FASTINGP ERFORMED BY: RUBEN [facility] Javliy98[address] [facility]in [place] [id number] Hematocrit Auto Volume Fraction (Bld) 37.1 % Normal 34.0-46.6 [facility] Internal Medicine Work Phone: Hemoglobin mass conc (Bld) 12.0 g/dL Normal 11.1-15.9 [facility] Work Phone: Comment on above: PATIENT WAS FASTINGP ERFORMED BY: RUBEN [facility] Mkadcm1372 [address] RoadSwain Community Hospitalin [place] [id number] Immature granulocytes #/vol (Bld) 0.0 {x10E3/uL} Normal 0.0-0.1 [facility] Work Phone: Comment on above: PATIENT WAS FASTINGP ERFORMED BY: RUBEN [facility] Xlalzz1846 [address] RoadSwain Community Hospitalin [place] [id number] Immature granulocytes (Bld) [#/Vol] 0.0 10*3/uL Normal 0.0-0.1 [facility]; [facility] Work Phone: Comment on above: PATIENT WAS FASTINGP ERFORMED BY: RUBEN LabCohiro TrevinoZhggbw9153 [address] RoadSwain Community Hospitalin [place] [id number] Immature granulocytes/100 WBC (Bld) 0 % Normal [facility] Work Phone: Comment on above: PATIENT WAS FASTINGP ERFORMED BY: RUBEN [facility] Ukskzz5457 [address] [facility] [id number] Lymphocytes (Bld) [#/Vol] 1.8 {x10E3/uL} Normal 0.7-3.1 [facility] Work Phone: Comment on above: PATIENT WAS FASTINGP ERFORMED BY: [facility] Vkhnqb7481 [address] [facility] [id number] Lymphocytes (Bld) [#/Vol] 1.8 10*3/uL Normal 0.7-3.1 [facility]; [facility] Work Phone: Comment on above: PATIENT WAS FASTINGP ERFORMED BY: [facility]6370 [facility] [id number] Lymphocytes Auto #/vol (Bld) 1.8 {x10E3/uL} Normal 0.7-3.1 [facility] Work Phone: Lymphocytes/100 WBC (Bld) 26 % Normal [facility] Work Phone: Comment on above: PATIENT WAS FASTINGP ERFORMED BY: [place] 7348670 [facility] [id number] Lymphocytes/100 WBC Auto (Bld) 26 % Normal [facility] Work Phone: MCH (RBC) [Entitic mass] 31.3 pg Normal 26.6-33.0 [facility] Work Phone: Comment on above: PATIENT WAS FASTINGP ERFORMED BY: [place] 7348670 [facility] [id number] MCH Auto Entitic mass (RBC) 31.3 pg Normal 26.6-33.0 [facility] Work Phone: MCHC (RBC) [Mass/Vol] 32.3 g/dL Normal 31.5-35.7 [facility] Internal Medicine Work Phone: Comment on above: PATIENT WAS FASTINGP ERFORMED BY: [place] [id number] [facility] [id number] MCHC Auto mass conc (RBC) 32.3 g/dL Normal 31.5-35.7 [facility] Internal Medicine Work Phone: MCV (RBC) [Entitic vol] 97 fL Normal 79-97 [facility] Work Phone: Comment on above: PATIENT WAS FASTINGP ERFORMED BY: [place] 7348670 [facility] [id number] MCV Auto Entitic volume (RBC) 97 fL Normal 79-97 [facility] Work Phone: Monocytes (Bld) [#/Vol] 0.5 {x10E3/uL} Normal 0.1-0.9 [facility] Work Phone: Comment on above: PATIENT WAS FASTINGP ERFORMED BY: [facility] [facility] Hospitalbl[facility] [place] [id number] Monocytes (Bld) [#/Vol] 0.5 10*3/uL Normal 0.1-0.9 [facility]; [facility] Work Phone: Comment on above: PATIENT WAS FASTINGP ERFORMED BY: [facility] [facility] Hospitalblin [place] [id number] Monocytes Auto #/vol (Bld) 0.5 {x10E3/uL} Normal 0.1-0.9 [facility] Work Phone: Monocytes/100 WBC (Bld) 8 % Normal [facility] Work Phone: Comment on above: PATIENT WAS FASTINGP ERFORMED BY: [facility]6370 [address] [facility]in [place] [id number] Monocytes/100 WBC Auto (Bld) 8 % Normal [facility] Work Phone: Neutrophils (Bld) [#/Vol] 4.6 {x10E3/uL} Normal 1.4-7.0 [facility] Work Phone: Comment on above: PATIENT WAS FASTINGP ERFORMED BY: [place] 7348670 [facility] [id number] Neutrophils (Bld) [#/Vol] 4.6 10*3/uL Normal 1.4-7.0 [facility]; [facility] Work Phone: Comment on above: PATIENT WAS FASTINGP ERFORMED BY: [facility]6[address] [facility]in [place] [id number] Neutrophils Auto #/vol (Bld) 4.6 {x10E3/uL} Normal 1.4-7.0 [facility] Work Phone: Neutrophils/100 WBC (Bld) 65 % Normal [facility] Work Phone: Comment on above: PATIENT WAS FASTINGP ERFORMED BY: [facility]6370 [address]Dublin [place] [id number] Neutrophils/100 WBC Auto (Bld) 65 % Normal [facility] Work Phone: Platelets (Bld) [#/Vol] 336 {x10E3/uL} Normal 150-379 [facility] Work Phone: Comment on above: PATIENT WAS FASTINGP ERFORMED BY: RUBEN [facility] Jqsmss3289 [address] RoadDublin [place] [id number] Platelets (Bld) [#/Vol] 336 10*3/uL Normal 150-379 [facility]; [facility] Work Phone: Comment on above: PATIENT WAS FASTINGP ERFORMED BY: RUBEN [facility] Sfgkvz4581 [address] RoadDublin [place] [id number] Platelets Auto #/vol (Bld) 336 {x10E3/uL} Normal 150-379 [facility] Work Phone: RBC (Bld) [#/Vol] 3.83 {x10E6/uL} Normal 3.77-5.28 [facility] Internal Medicine Work Phone: Comment on above: PATIENT WAS FASTINGP ERFORMED BY: RUBEN [facility] Yqibrg7355 [address] RoadDuin [place] [id number] RBC (Bld) [#/Vol] 3.83 10*6/uL Normal 3.77-5.28 [facility]; [facility] Work Phone: Comment on above: PATIENT WAS FASTINGP ERFORMED BY: RUBEN [facility] Nglxxc8911 [address] RoadDuin [place] [id number] RBC Auto #/vol (Bld) 3.83 {x10E6/uL} Normal 3.77-5.28 [facility] Internal Medicine Work Phone: WBC (Bld) [#/Vol] 7.1 {x10E3/uL} Normal 3.4-10.8 [facility] Internal Medicine Work Phone: Comment on above: PATIENT WAS FASTINGP ERFORMED BY: RUBEN [facility] Zzfeyg9402 [address] RoadDublin [place] [id number] WBC (Bld) [#/Vol] 7.1 10*3/uL Normal 3.4-10.8 [facility] Internal Medicine; [facility] Work Phone: Comment on above: PATIENT WAS FASTINGP ERFORMED BY: RUBEN Trevinolin[address] ProLedge Bookkeeping ServicesCritical access hospital [id number] WBC Auto #/vol (Bld) 7.1 {x10E3/uL} Normal 3.4-10.8 [facility] Work Phone: LIPID PANEL ([id number])Ordered B y: Die Sizer on 05-31-2016 Cholesterol in HDL mass conc 48 mg/dL Normal [facility] Work Phone: Comment on above: PATIENT WAS FASTINGP ERFORMED BY: RUBEN Amaro[address] ProLedge Bookkeeping ServicesCritical access hospital [id number] Cholesterol in LDL mass conc 93 mg/dL Normal 0-99 [facility] Work Phone: Comment on above: PATIENT WAS FASTINGP ERFORMED BY: RUBEN Amaro[address] ProLedge Bookkeeping ServicesCritical access hospital [id number] Cholesterol in LDL/Cholesterol in HDL mass ratio 1.9 {ratio_units} Normal 0.0-3.2 [facility] Work Phone: Comment on above: LDL/HDL Ratio Men Wo men 1/2 Avg.Risk 1.0 1.5 Avg.Risk 3.6 3.2 2X Avg.Risk 6.2 5.0 3X Avg.Risk 8.0 6.1 PATIENT WAS FASTINGP ERFORMED BY: RUBEN Trevinolin[address] Caro NutNovant Health [facility] [id number] Cholesterol in VLDL mass conc 24 mg/dL Normal 5-40 [facility] Work Phone: Comment on above: PATIENT WAS FASTINGP ERFORMED BY: RUBEN Amaro[address] ProLedge Bookkeeping Servicesin [place] [id number] Cholesterol mass conc 165 mg/dL Normal 100-199 [facility] prehensive Internal Medicine Work Phone: Comment on above: PATIENT WAS FASTINGP ERFORMED BY: RUBEN Amaro[address] ProLedge Bookkeeping ServicesCritical access hospital [id number] Triglyceride mass conc 118 mg/dL Normal 0-149 [facility] Work Phone: Comment on above: PATIENT WAS FASTINGP ERFORMED BY: RUBEN [facility] Gtfvnf6264 [address] RoadDublin [place] [id number] METABOLIC PANEL, COMPREHENSI VE ([id number])Ordered By: Die Sizer on 05-31-2016 Albumin mass conc 4.5 g/dL Normal 3.5-5.5 Compreh [facility] Internal Medicine Work Phone: Comment on above: PATIENT WAS FASTINGP ERFORMED BY: CB [facility] Kuityi7220 [address] RoadDublin [place] [id number] Albumin/Globulin mass ratio 2.0 {ratio} Normal 1.1-2.5 [facility] Work Phone: Comment on above: PATIENT WAS FASTINGP ERFORMED BY: RUBEN [facility] Mnxbbz8219 [address] RoadDublin [place] [id number] ALP [Catalytic activity/Vol] 45 U/L Normal 39-117 [facility]; [facility] Work Phone: Comment on above: PATIENT WAS FASTINGP ERFORMED BY: RUBEN [facility] Owbrup5737 [address] RoadDublin [place] [id number] ALP enzyme act/vol 45 [iU]/L Normal 39-117 [facility] Internal Medicine Work Phone: Comment on above: PATIENT WAS FASTINGP ERFORMED BY: CB [facility] Nhcatq8518 [address] RoadDublin [place] [id number] ALT [Catalytic activity/Vol] 13 U/L Normal 0-32 [facility]; [facility] Internal Medicine Work Phone: Comment on above: PATIENT WAS FASTINGP ERFORMED BY: CB [facility] Cusajd1057 [address] RoadDublin [place] [id number] ALT enzyme act/vol 13 [iU]/L Normal 0-32 [facility] Internal Medicine Work Phone: Comment on above: PATIENT WAS FASTINGP ERFORMED BY: CB [facility] Dgppeu5470 [address] RoadDublin [place] [id number] AST [Catalytic activity/Vol] 14 U/L Normal 0-40 [facility]; [facility] Work Phone: Comment on above: PATIENT WAS FASTINGP ERFORMED BY: RUBEN [facility] Mwjhhh[address] [facility] Hospitalblin [place] [id number] AST enzyme act/vol 14 [iU]/L Normal 0-40 Compre [facility] Internal Medicine Work Phone: Comment on above: PATIENT WAS FASTINGP ERFORMED BY: RUBEN [facility] Ietdsn7486 [place] [place] [id number] Bilirubin mass conc 0.4 mg/dL Normal 0.0-1.2 Compr ensive Internal Medicine Work Phone: Comment on above: PATIENT WAS FASTINGP ERFORMED BY: RUBEN LabCohiro Fnmqhi4240 [place] [facility] [id number] Calcium mass conc 9.4 mg/dL Normal 8.7-10.2 Compreh [facility] Work Phone: Comment on above: PATIENT WAS FASTINGP ERFORMED BY: RUBEN LabCohiro TrevinoHyimrm4052 [place] [facility] [id number] Chloride molar conc 95 mmol/L Abnormal 97-106 Compr [facility] Internal Medicine Work Phone: Comment on above: PATIENT WAS FASTINGP ERFORMED BY: RUBEN LabCohiro Cgyrny4445 [facility] [id number] CO2 molar conc 23 mmol/L Normal 18-29 Comprehens иван Internal Medicine Work Phone: Comment on above: PATIENT WAS FASTINGP ERFORMED BY: RUBEN [facility] Dzfbqq5427 [facility] [id number] Creatinine mass conc 0.73 mg/dL Normal 0.57-1.00 Comp [facility] Internal Medicine Work Phone: Comment on above: PATIENT WAS FASTINGP ERFORMED BY: RUBEN [facility] Jpzbqd8748 [place] [facility] [id number] GFR/1.73 sq M predicted among blacks CKD-EPI vol rate/area (S/P/Bld) 113 mL/min/1.73 Normal Comprehensiv e Internal Medicine Work Phone: Comment on above: PATIENT WAS FASTINGP ERFORMED BY: RUBEN LabCo Srdidn7955 [address] RoadDublin [place] [id number] GFR/1.73 sq M predicted among non-blacks CKD-EPI vol rate/area (S/P/Bld) 98 mL/min/1.73 Normal [facility] Work Phone: Comment on above: PATIENT WAS FASTINGP ERFORMED BY: RUBEN [facility] Biqyvs7892 [address] Roadblin [place] [id number] Globulin (S) [Mass/Vol] 2.3 g/dL Normal 1.5-4.5 [facility] Work Phone: Comment on above: PATIENT WAS FASTINGP ERFORMED BY: RUBEN LabCo Morojt1209 [address] Roadblin [place] [id number] Globulin Calculated mass conc (S) 2.3 g/dL Normal 1.5-4.5 [facility] Work Phone: Glucose mass conc 86 mg/dL Normal 65-99 Compreh ensive Internal Medicine Work Phone: Comment on above: PATIENT WAS FASTINGP ERFORMED BY: RUBEN LabCo Kzfdng7383 [place] [facility] [place] [id number] Potassium molar conc 4.2 mmol/L Normal 3.5-5.2 Comp rehensive Internal Medicine Work Phone: Comment on above: PATIENT WAS FASTINGP ERFORMED BY: RUBEN [facility] Wfpqkd3313 [place] [facility] [place] [id number] Protein mass conc 6.8 g/dL Normal 6.0-8.5 Compreh ensive Internal Medicine Work Phone: Comment on above: PATIENT WAS FASTINGP ERFORMED BY: [facility] Jncmuv0084 [place] [facility] JacksonDublin [place] [id number] Sodium molar conc 139 mmol/L Normal 136-144 Compreh ensive Internal Medicine Work Phone: Comment on above: PATIENT WAS FASTINGP ERFORMED BY: RUBEN [facility] Uzmkcr[address] [facility] [place] [id number] Urea nitrogen mass conc 16 mg/dL Normal 6-24 [facility] Work Phone: Comment on above: PATIENT WAS FASTINGP ERFORMED BY: [facility] Fzsvvo4832 [facility] [id number] Urea nitrogen/Creatinine mass ratio 22 mg/mg Normal 9- [facility] Work Phone: Comment on above: PATIENT WAS FASTINGP ERFORMED BY: [facility] Zxztmv7911 [facility] [id number] MICROALBUMINOrdered By: Syst em Senior Accountant on 05-31-2016 Albumin DL <= 20 mg/L (U) [Mass/Vol] mg/dL Normal [facility]; [facility] Work Phone: Comment on above: PATIENT WAS FASTINGP ERFORMED BY: [facility]6370 [facility] [id number] Albumin DL <= 20 mg/L mass conc (U) mg/dL Normal [facility] Work Phone: Comment on above: PATIENT WAS FASTINGP ERFORMED BY: [facility]6370 [facility] [id number] Albumin/Creatinine mass ratio (U) <6.7 Normal 0.0-30.0 [facility] Work Phone: Comment on above: PATIENT WAS FASTINGP ERFORMED BY: [facility]6370 [facility] [id number] Creatinine mass conc (U) 44.9 mg/dL Normal [facility] Work Phone: Comment on above: PATIENT WAS FASTINGP ERFORMED BY: [facility]6370 [facility] [id number] Microscopic ExaminationOrder ed By: Die Sizer on 05-31-2016 Bacteria LM.HPF #/area (Urine sed) [...] 5 [facility] Work Phone: TSH ([id number])Ordered By: Syste m Senior Accountant on 05-31-2016 Thyrotropin Qn 1.880 {uIU/mL} Normal 0.450-4.500 Compr ehensive Internal Medicine Work Phone: Comment on above: PATIENT WAS FASTINGP ERFORMED BY: RUBEN [facility] Xzdjld2009 [address] RoadDublin [place] [id number] URINALYSIS, W/ MICRO (23285) Ordered By: Die Sizer on 05-31-2016 Appearance Nom (U) Clear Normal Compre hensive Internal Medicine Work Phone: Comment on above: PATIENT WAS FASTINGP ERFORMED BY: RUBEN [facility] Ukjbzr8218 [address] RoadDublin [place] [id number] Bilirubin Ql (U) Negative Normal Comprehe nsive Internal Medicine Work Phone: Comment on above: PATIENT WAS FASTINGP ERFORMED BY: RUBEN [facility] Ruwvur4453 [address] RoadDublin [place] [id number] Bilirubin Ql (U) Negative Normal Comprehe nsive Internal Medicine; [facility] Work Phone: Comment on above: PATIENT WAS FASTINGP ERFORMED BY: CB [facility] Xezvap9522 [address] RoadDublin [place] [id number] Color Nom (U) Yellow Normal Comprehensi ve Internal Medicine Work Phone: Comment on above: PATIENT WAS FASTINGP ERFORMED BY: CB [facility] Wvzuny4154 [address] RoadDublin [place] [id number] Glucose Ql (U) Negative Normal Comprehens иван Internal Medicine Work Phone: Comment on above: PATIENT WAS FASTINGP ERFORMED BY: CB [facility] Cdysgi1433 [address] RoadDublin [place] [id number] Glucose Ql (U) Negative Normal Comprehens иван Internal Medicine; [facility] Work Phone: Comment on above: PATIENT WAS FASTINGP ERFORMED BY: RUBEN LabParker TrevinoOszhqz4277 [address] RoadDublin [place] [id number] Hemoglobin Ql (U) Negative Normal Compreh ensive Internal Medicine Work Phone: Comment on above: PATIENT WAS FASTINGP ERFORMED BY: RUBEN LabCohiro TrevinoTzcpoh3005 [address] RoadDublin [place] [id number] Hemoglobin Ql (U) Negative Normal Compreh ensive Internal Medicine; [facility] Work Phone: Comment on above: PATIENT WAS FASTINGP ERFORMED BY: RUBEN Trevinolin6370 [address] RoadDublin [place] [id number] Hemoglobin Test strip Ql (U) Negative Normal [facility] Work Phone: Ketones Ql (U) Negative Normal Comprehens иван Internal Medicine Work Phone: Comment on above: PATIENT WAS FASTINGP ERFORMED BY: RUBEN Trevinolin6370 [address] RoadDublin [place] [id number] Ketones Ql (U) Negative Normal Comprehens иван Internal Medicine; [facility] Work Phone: Comment on above: PATIENT WAS FASTINGP ERFORMED BY: RUBEN Trevinolin6370 [address] RoadDublin [place] [id number] Leukocyte esterase Test strip Ql (U) Negative Normal [facility] Work Phone: Comment on above: PATIENT WAS FASTINGP ERFORMED BY: RUBEN LabCohiro TrevinoZzsnik5974 [address] RoadDublin [place] [id number] Leukocyte esterase Test strip Ql (U) Negative Normal [facility]; [facility] Work Phone: Comment on above: PATIENT WAS FASTINGP ERFORMED BY: RUBEN [facility] Mrihji5194 [address] RoadDublin [place] [id number] Microscopic observation LM Nom (Urine sed) MICRON Normal [facility] Work Phone: Comment on above: Microscopic follows if indicated. PATIENT WAS FASTINGP ERFORMED BY: RUBEN [facility] Qinenh1420 [address] RoadDublin [place] [id number] Microscopic observation LM Nom (Urine sed) See below: Normal [facility] Work Phone: Comment on above: Microscopic was evita cated and was performed. PATIENT WAS FASTINGP ERFORMED BY: RUBEN [facility] Htvgje9344 [address] RoadDublin [place] [id number] Nitrite Ql (U) Negative Normal Comprehens иван Internal Medicine Work Phone: Comment on above: PATIENT WAS FASTINGP ERFORMED BY: RUBEN [facility] Rbzywe7854 [address] RoadDublin [place] [id number] Nitrite Ql (U) Negative Normal Comprehens иван Internal Medicine; [facility] Work Phone: Comment on above: PATIENT WAS FASTINGP ERFORMED BY: RUBEN [facility] Juprde9207 [address] RoadDublin [place] [id number] Nitrite Test strip Ql (U) Negative Normal [facility] Work Phone: pH (U) 7.0 [pH] Normal 5.0-7.5 [facility] Work Phone: Comment on above: PATIENT WAS FASTINGP ERFORMED BY: RUBEN [facility] Dwhfbj7470 [address] RoadDublin [place] [id number] pH Test strip (U) 7.0 [pH] Normal 5.0-7.5 Compreh ensive Internal Medicine Work Phone: Protein Ql (U) Negative Normal Comprehens иван Internal Medicine Work Phone: Comment on above: PATIENT WAS FASTINGP ERFORMED BY: RUBEN [facility] Hvpfgw8147 [address] RoadDublin [place] [id number] Protein Ql (U) Negative Normal Comprehens иван Internal Medicine; [facility] Work Phone: Comment on above: PATIENT WAS FASTINGP ERFORMED BY: RUBEN [facility] Tqksvd6773 [address] RoadDublin [place] [id number] Protein Test strip Ql (U) Negative Normal [facility] Work Phone: Specific gravity Relative Density (U) 1.010 1 Normal 1.005-1.030 Comprehensi ve Internal Medicine Work Phone: Comment on above: PATIENT WAS FASTINGP ERFORMED BY: openPeopleHoly Name Medical CenterMobxrv8183 [facility] [id number] Urobilinogen (U) [Mass/Vol] 0.2 mg/dL Normal 0.2-1.0 [facility]; [facility] Work Phone: Comment on above: PATIENT WAS FASTINGP ERFORMED BY: [facility] Wolvvx8541 [place] [facility] [id number] Urobilinogen Test strip mass conc (U) 0.2 mg/dL Normal 0.2-1.0 Comprehensiv e Internal Medicine Work Phone: Comment on above: PATIENT WAS FASTINGP ERFORMED BY: openPeople Gqjmdh9135 [facility] [id number] PAP I-G w/rfx hrHPVOrdered B y: Die Sizer on 05-01-2016 COMM . Normal [facility] Work Phone: HPV HC,HGH RISK Negative Normal Comprehen sive Internal Medicine Work Phone: Comment on above: This high-risk HPV t est detects thirteen high-risk types(16/18/31/33/35/39/45/51/52/56/58/59/68) withoutdifferentiation.Performed at: [facility] [employer] [place] [id number] Director: Patrizia Lovelace MD, Phone: [phone] at: [address] [id number] Director: Bess Cross MD, Phone: [phone] at: =[facility] [employer] [id number] Director: Bess Cross MD, Phone: [phone] PAPSMR Comment Normal [facility] Work [...] SQUAMOUS CELLS OF UNDETERMINED SIGNIFICANCE. [facility] otechnologist (ASCP) This liquid based Th inPrep(R) pap test was screened withthe use of an image guided system. Protein mass conc Comment Normal Compreh ensive Internal Medicine Work Phone: Comment on above: R87.610 CALCIFIDIOL (84743) VIT D 25 Ordered By: Die Sizer on 12-01-2015 25-Hydroxyvitamin D2+25-Hydroxyvitamin D3 mass conc 54.4 ng/mL Normal 30.0-100.0 [facility] Work Phone: Comment on above: Vitamin D deficiency has been defined by the [place] ofMedicine and an Endocrine Society practice guideline as alevel of serum 25-OH vitamin D less than 20 ng/mL (1,2).The Endocrine Society went on to further define vitamin Dinsufficiency as a level between 21 and 29 ng/mL (2).1. IOM ([place] of Medicine). 2010. Dietary reference intakes for calcium and D. [place]: The National Academies Press.2. Krystal MF, Ashtyn NC, Cassandra FLEMING, et al. Evaluation, treatment, and prevention of vitamin D deficiency: an Endocrine Society clinical practice guideline. JCEM. 2010; 96(7):1911-30. PATIENT WAS FASTINGP ERFORMED BY: eleni70 Gayla [facility] [id number] CBC W/AUTO DIFF WBC (85245)O rdered By: Die Sizer on 12-01-2015 Basophils (Bld) [#/Vol] 0.0 {x10E3/uL} Normal 0.0-0.2 [facility] Work Phone: Comment on above: PATIENT WAS FASTINGP ERFORMED BY: [employer] Glassox RoadDublin [place] [id number] Information: [id number] Basophils (Bld) [#/Vol] 0.0 10*3/uL Normal 0.0-0.2 [facility]; [facility] Work Phone: Comment on above: PATIENT WAS FASTINGP ERFORMED BY: [address] [id number] Information: [id number] Basophils Auto #/vol (Bld) 0.0 {x10E3/uL} Normal 0.0-0.2 [facility] Work Phone: Basophils/100 WBC (Bld) 1 % Normal [facility] Work Phone: Comment on above: PATIENT WAS FASTINGP ERFORMED BY: [address] [id number] Information: [id number] Basophils/100 WBC Auto (Bld) 1 % Normal [facility] Work Phone: Eosinophils (Bld) [#/Vol] 0.1 {x10E3/uL} Normal 0.0-0.4 [facility] Work Phone: Comment on above: PATIENT WAS FASTINGP ERFORMED BY: [address] [id number] Information: [id number] Eosinophils (Bld) [#/Vol] 0.1 10*3/uL Normal 0.0-0.4 [facility]; [facility] Work Phone: Comment on above: PATIENT WAS FASTINGP ERFORMED BY: [place] 7348670 [facility] [id number] Information: [id number] Eosinophils Auto #/vol (Bld) 0.1 {x10E3/uL} Normal 0.0-0.4 [facility] Work Phone: Eosinophils/100 WBC (Bld) 2 % Normal [facility] Work Phone: Comment on above: PATIENT WAS FASTINGP ERFORMED BY: [place] 7348670 [facility] [id number] Information: [id number] Eosinophils/100 WBC Auto (Bld) 2 % Normal [facility] Work Phone: Erythrocyte distribution width (RBC) [Ratio] 13.2 % Normal 12.3-15.4 [facility] Work Phone: Comment on above: PATIENT WAS FASTINGP ERFORMED BY: [address] [id number] Information: [id number] Erythrocyte distribution width Auto Ratio (RBC) 13.2 % Normal 12.3-15.4 [facility] Work Phone: Hematocrit (Bld) [Volume fraction] 37.0 % Normal 34.0-46.6 [facility] Work Phone: Comment on above: PATIENT WAS FASTINGP ERFORMED BY: [address] [id number] Information: [id number],[id number] Hematocrit Auto Volume Fraction (Bld) 37.0 % Normal 34.0-46.6 [facility] Internal Medicine Work Phone: Hemoglobin mass conc (Bld) 12.0 g/dL Normal 11.1-15.9 [facility] Work Phone: Comment on above: PATIENT WAS FASTINGP ERFORMED BY: [place] 7348670 [facility] [id number] Information: [id number] Immature granulocytes #/vol (Bld) 0.0 {x10E3/uL} Normal 0.0-0.1 [facility] Work Phone: Comment on above: PATIENT WAS FASTINGP ERFORMED BY: [place] 7348670 [facility] [id number] Information: [id number] Immature granulocytes (Bld) [#/Vol] 0.0 10*3/uL Normal 0.0-0.1 [facility]; [facility] Work Phone: Comment on above: PATIENT WAS FASTINGP ERFORMED BY: RUBEN Cerda [facility] [id number] Information: [id number] Immature granulocytes/100 WBC (Bld) 0 % Normal [facility] Work Phone: Comment on above: PATIENT WAS FASTINGP ERFORMED BY: RUBEN Andrew Wh[address] [id number] Information: [id number] Lymphocytes (Bld) [#/Vol] 2.1 {x10E3/uL} Normal 0.7-3.1 [facility] Work Phone: Comment on above: PATIENT WAS FASTINGP ERFORMED BY: [address] [id number] Information: [id number] Lymphocytes (Bld) [#/Vol] 2.1 10*3/uL Normal 0.7-3.1 [facility]; [facility] Work Phone: Comment on above: PATIENT WAS FASTINGP ERFORMED BY: RUBEN Trevinolin6370 [facility] [id number] Information: [id number] Lymphocytes Auto #/vol (Bld) 2.1 {x10E3/uL} Normal 0.7-3.1 [facility] Work Phone: Lymphocytes/100 WBC (Bld) 36 % Normal [facility] Work Phone: Comment on above: PATIENT WAS FASTINGP ERFORMED BY: [address] [id number] Information: [id number] Lymphocytes/100 WBC Auto (Bld) 36 % Normal [facility] Work Phone: MCH (RBC) [Entitic mass] 31.0 pg Normal 26.6-33.0 [facility] Work Phone: Comment on above: PATIENT WAS FASTINGP ERFORMED BY: [place] 7348670 [facility] [id number] Information: [id number] MCH Auto Entitic mass (RBC) 31.0 pg Normal 26.6-33.0 [facility] Internal Medicine Work Phone: MCHC (RBC) [Mass/Vol] 32.4 g/dL Normal 31.5-35.7 [facility] Internal Medicine Work Phone: Comment on above: PATIENT WAS FASTINGP ERFORMED BY: [address] [id number] Information: [id number] MCHC Auto mass conc (RBC) 32.4 g/dL Normal 31.5-35.7 [facility] Internal Medicine Work Phone: MCV (RBC) [Entitic vol] 96 fL Normal 79-97 [facility] Work Phone: Comment on above: PATIENT WAS FASTINGP ERFORMED BY: [address] [id number] Information: [id number] MCV Auto Entitic volume (RBC) 96 fL Normal 79-97 [facility] Internal Medicine Work Phone: Monocytes (Bld) [#/Vol] 0.5 {x10E3/uL} Normal 0.1-0.9 [facility] Internal Medicine Work Phone: Comment on above: PATIENT WAS FASTINGP ERFORMED BY: [place] 7348670 [facility] [id number] Information: [id number] Monocytes (Bld) [#/Vol] 0.5 10*3/uL Normal 0.1-0.9 [facility] Internal Medicine; [facility] Work Phone: Comment on above: PATIENT WAS FASTINGP ERFORMED BY: [place] 7348670 [facility] [id number] Information: [id number] Monocytes Auto #/vol (Bld) 0.5 {x10E3/uL} Normal 0.1-0.9 [facility] Work Phone: Monocytes/100 WBC (Bld) 8 % Normal [facility] Work Phone: Comment on above: PATIENT WAS FASTINGP ERFORMED BY: RUBEN Amaro6370 [facility] [id number] Information: [id number] Monocytes/100 WBC Auto (Bld) 8 % Normal [facility] Work Phone: Neutrophils (Bld) [#/Vol] 3.0 {x10E3/uL} Normal 1.4-7.0 [facility] Work Phone: Comment on above: PATIENT WAS FASTINGP ERFORMED BY: RUBEN Trevinolin6370 [facility] [id number] Information: [id number] Neutrophils (Bld) [#/Vol] 3.0 10*3/uL Normal 1.4-7.0 [facility]; [facility] Work Phone: Comment on above: PATIENT WAS FASTINGP ERFORMED BY: RUBEN Trevinolin6370 [facility] [id number] Information: [id number] Neutrophils Auto #/vol (Bld) 3.0 {x10E3/uL} Normal 1.4-7.0 [facility] Work Phone: Neutrophils/100 WBC (Bld) 53 % Normal [facility] Work Phone: Comment on above: PATIENT WAS FASTINGP ERFORMED BY: RUBEN [place] 5239970 [facility] [id number] Information: [id number] Neutrophils/100 WBC Auto (Bld) 53 % Normal [facility] Work Phone: Platelets (Bld) [#/Vol] 338 {x10E3/uL} Normal 150-379 [facility] Work Phone: Comment on above: PATIENT WAS FASTINGP ERFORMED BY: [facility]6370 [facility] [id number] Information: [id number] Platelets (Bld) [#/Vol] 338 10*3/uL Normal 150-379 [facility]; [facility] Work Phone: Comment on above: PATIENT WAS FASTINGP ERFORMED BY: [place] 7348670 [facility] [id number] Information: [id number] Platelets Auto #/vol (Bld) 338 {x10E3/uL} Normal 150-379 [facility] Work Phone: RBC (Bld) [#/Vol] 3.87 {x10E6/uL} Normal 3.77-5.28 [facility] Internal Medicine Work Phone: Comment on above: PATIENT WAS FASTINGP ERFORMED BY: [place] 7348670 [facility] [id number] Information: [id number] RBC (Bld) [#/Vol] 3.87 10*6/uL Normal 3.77-5.28 [facility] Internal [facility]; [facility] Internal Medicine Work Phone: Comment on above: PATIENT WAS FASTINGP ERFORMED BY: [facility]6370 [facility] [id number] Information: [id number] RBC Auto #/vol (Bld) 3.87 {x10E6/uL} Normal 3.77-5.28 [facility] Internal Medicine Work Phone: WBC (Bld) [#/Vol] 5.7 {x10E3/uL} Normal 3.4-10.8 [facility] Internal Medicine Work Phone: Comment on above: PATIENT WAS FASTINGP ERFORMED BY: [facility]6370 [facility] [id number] Information: [id number] WBC (Bld) [#/Vol] 5.7 10*3/uL Normal 3.4-10.8 [facility] Internal Medicine; [facility] Work Phone: Comment on above: PATIENT WAS FASTINGP ERFORMED BY: RUBEN [facility] Mfcavi1486 [address] RoadDublin [place] [id number] Information: [id number] WBC Auto #/vol (Bld) 5.7 {x10E3/uL} Normal 3.4-10.8 [facility] Work Phone: METABOLIC PANEL, COMPREHENSI VE (03257)Ordered By: Die Sizer on 12-01-2015 Albumin mass conc 4.4 g/dL Normal 3.5-5.5 Compreh [facility] Internal Medicine Work Phone: Comment on above: PATIENT WAS FASTINGP ERFORMED BY: [facility] Piyfty9488 [address]la RoadDublin [place] [id number] Albumin/Globulin mass ratio 1.8 {ratio} Normal 1.1-2.5 [facility] Work Phone: Comment on above: PATIENT WAS FASTINGP ERFORMED BY: [facility] Vnzavy8120 [address] RoadDublin [place] [id number] ALP [Catalytic activity/Vol] 67 U/L Normal 39-117 [facility]; [facility] Internal Medicine Work Phone: Comment on above: PATIENT WAS FASTINGP ERFORMED BY: [facility] Ercoaf1643 [address] RoadDublin [place] [id number] ALP enzyme act/vol 67 [iU]/L Normal 39-117 [facility] Internal Medicine Work Phone: Comment on above: PATIENT WAS FASTINGP ERFORMED BY: [facility] Kwnapl5829 [address] RoadDublin [place] [id number] ALT [Catalytic activity/Vol] 14 U/L Normal 0-32 [facility]; [facility] Internal Medicine Work Phone: Comment on above: PATIENT WAS FASTINGP ERFORMED BY: [facility] Lyxnko9784 [address] RoadDublin [place] [id number] ALT enzyme act/vol 14 [iU]/L Normal 0-32 [facility] Internal Medicine Work Phone: Comment on above: PATIENT WAS FASTINGP ERFORMED BY: RUBEN LabCohiro Quctjt2406 [address] RoadDublin [place] [id number] AST [Catalytic activity/Vol] 20 U/L Normal 0-40 [facility]; [facility] Work Phone: Comment on above: PATIENT WAS FASTINGP ERFORMED BY: RUBEN [facility] Jdextv5020 [address] RoadDublin [place] [id number] AST enzyme act/vol 20 [iU]/L Normal 0-40 Compre hensive Internal Medicine Work Phone: Comment on above: PATIENT WAS FASTINGP ERFORMED BY: RUBEN [facility] Zjjvxi6257 [address] RoadDublin [place] [id number] Bilirubin [Mass/Vol] mg/dL Normal 0.0-1.2 Comp rehensive Internal Medicine; [facility] Internal Medicine Work Phone: Comment on above: PATIENT WAS FASTINGP ERFORMED BY: RUBEN Trevinolin6370 [address]Dublin [place] [id number] Bilirubin mass conc mg/dL Normal 0.0-1.2 [facility] Work Phone: Comment on above: PATIENT WAS FASTINGP ERFORMED BY: RUBEN Lorriehiro TrevinoUkuqpk0931 [address]la RoadDublin [place] [id number] Calcium mass conc 9.1 mg/dL Normal 8.7-10.2 Compreh [facility] Internal Medicine Work Phone: Comment on above: PATIENT WAS FASTINGP ERFORMED BY: RUBEN LabCohiro TrevinoFrgynx0350 [address]la RoadDublin [place] [id number] Chloride molar conc 99 mmol/L Normal 97-108 Compr ehensive Internal Medicine Work Phone: Comment on above: PATIENT WAS FASTINGP ERFORMED BY: RUBEN [facility] Npvuji2102 [address] RoadDublin [place] [id number] CO2 molar conc 26 mmol/L Normal 18-29 Comprehens иван Internal Medicine Work Phone: Comment on above: PATIENT WAS FASTINGP ERFORMED BY: RUBEN [facility] Okdgkh1244 [address] RoadDublin [place] [id number] Creatinine mass conc 0.81 mg/dL Normal 0.57-1.00 Comp rehensive Internal Medicine Work Phone: Comment on above: PATIENT WAS FASTINGP ERFORMED BY: RUBEN [facility] Srjfkg3355 [address] Roadblin [place] [id number] GFR/1.73 sq M predicted among blacks CKD-EPI vol rate/area (S/P/Bld) 100 mL/min/1.73 Normal Comprehensiv e Internal Medicine Work Phone: Comment on above: PATIENT WAS FASTINGP ERFORMED BY: RUBEN [facility] Wnosyv9091 [address]la RoadSwain Community Hospitalin [place] [id number] GFR/1.73 sq M predicted among non-blacks CKD-EPI vol rate/area (S/P/Bld) 87 mL/min/1.73 Normal [facility] Work Phone: Comment on above: PATIENT WAS FASTINGP ERFORMED BY: RUBEN LabCo Ardxws5774 [address] [facility] [id number] Globulin (S) [Mass/Vol] 2.5 g/dL Normal 1.5-4.5 [facility] Work Phone: Comment on above: PATIENT WAS FASTINGP ERFORMED BY: [facility] Ingxie6055 [facility] [id number] Globulin Calculated mass conc (S) 2.5 g/dL Normal 1.5-4.5 [facility] Work Phone: Glucose mass conc 86 mg/dL Normal 65-99 Compreh ensive Internal Medicine Work Phone: Comment on above: PATIENT WAS FASTINGP ERFORMED BY: [facility] Hazndk3177 [facility] Springfieldin [place] [id number] Potassium molar conc 4.3 mmol/L Normal 3.5-5.2 Comp rehensive Internal Medicine Work Phone: Comment on above: PATIENT WAS FASTINGP ERFORMED BY: [facility] Zsstum5254 [facility] Springfieldin [place] [id number] Protein mass conc 6.9 g/dL Normal 6.0-8.5 Compreh ensive Internal Medicine Work Phone: Comment on above: PATIENT WAS FASTINGP ERFORMED BY: RUBEN [facility] Nlevce3469 [address] RoadDublin [place] [id number] Sodium molar conc 141 mmol/L Normal 134-144 Compreh ensive Internal Medicine Work Phone: Comment on above: PATIENT WAS FASTINGP ERFORMED BY: RUBEN [facility] Bmyvgk7773 [address] RoadDublin [place] [id number] Urea nitrogen mass conc 12 mg/dL Normal 6- [facility] Work Phone: Comment on above: PATIENT WAS FASTINGP ERFORMED BY: RUBEN [facility] Uapjuh9759 [address] RoadDublin [place] [id number] Urea nitrogen/Creatinine mass ratio 15 mg/mg Normal 9- [facility] Work Phone: Comment on above: PATIENT WAS FASTINGP ERFORMED BY: RUBEN [facility] Ghfdwf2256 [address] RoadDuin [place] [id number] MICROALBUMINOrdered By: Syst em Senior Accountant on 12-01-2015 Albumin DL <= 20 mg/L mass conc (U) 10.0 ug/mL Normal [facility] Work Phone: Comment on above: Please note refere nce interval change PATIENT WAS FASTINGP ERFORMED BY: RUBEN [facility] Crkrop3993 [address] RoadDublin [place] [id number] Albumin/Creatinine mass ratio (U) 6.0 {mg/g_creat} Normal 0.0-30.0 [facility] Work Phone: Comment on above: PATIENT WAS FASTINGP ERFORMED BY: [facility] Zwkhhe1149 [address] RoadDublin [place] [id number] Creatinine mass conc (U) 167.1 mg/dL Normal [facility] Work Phone: Comment on above: Please note refere nce interval change PATIENT WAS FASTINGP ERFORMED BY: RUBEN [facility] Sfugcs7982 [address] RoadDublin [place] [id number] Microscopic ExaminationOrder ed By: Die Sizer on 12-01-2015 Bacteria LM.HPF #/area (Urine sed) [...] 5 [facility] Work Phone: TSH ([id number])Ordered By: Syste m Senior Accountant on 12-01-2015 Thyrotropin Qn 1.750 {uIU/mL} Normal 0.450-4.500 Compr ehensive Internal Medicine Work Phone: Comment on above: PATIENT WAS FASTINGP ERFORMED BY: RUBEN [facility] Zehrje0187 [address] RoadDublin [place] [id number] URINALYSIS, W/ MICRO ([id number]) Ordered By: Die Sizer on 12-01-2015 Appearance Nom (U) Clear Normal Compre hensive Internal Medicine Work Phone: Comment on above: PATIENT WAS FASTINGP ERFORMED BY: RUBEN [facility] Vadlgy8393 [address] RoadDublin [place] [id number] Bilirubin Ql (U) Negative Normal Comprehe nsive Internal Medicine Work Phone: Comment on above: PATIENT WAS FASTINGP ERFORMED BY: RUBEN [facility] Jxczpe7668 [address] RoadDublin [place] [id number] Bilirubin Ql (U) Negative Normal Comprehe nsive Internal Medicine; [facility] Work Phone: Comment on above: PATIENT WAS FASTINGP ERFORMED BY: RUBEN [facility] Nvzsbu1511 [address] RoadDublin [place] [id number] Color Nom (U) Yellow Normal Comprehensi ve Internal Medicine Work Phone: Comment on above: PATIENT WAS FASTINGP ERFORMED BY: RUBEN [facility] Burquc6707 [address] RoadDublin [place] [id number] Glucose Ql (U) Negative Normal Comprehens иван Internal Medicine Work Phone: Comment on above: PATIENT WAS FASTINGP ERFORMED BY: RUBEN LabParker Amaro6370 [address] RoadDublin [place] [id number] Glucose Ql (U) Negative Normal Comprehens иван Internal Medicine; [facility] Work Phone: Comment on above: PATIENT WAS FASTINGP ERFORMED BY: RUBEN Amaro6370 [address] RoadDublin [place] [id number] Hemoglobin Ql (U) Negative Normal Compreh ensive Internal Medicine Work Phone: Comment on above: PATIENT WAS FASTINGP ERFORMED BY: RUBEN LabParker TrevinoSzahii0178 [address] RoadDublin [place] [id number] Hemoglobin Ql (U) Negative Normal Compreh ensive Internal Medicine; [facility] Work Phone: Comment on above: PATIENT WAS FASTINGP ERFORMED BY: RUBEN Amaro6370 [address] RoadDublin [place] [id number] Hemoglobin Test strip Ql (U) Negative Normal [facility] Work Phone: Ketones Ql (U) Negative Normal Comprehens иван Internal Medicine Work Phone: Comment on above: PATIENT WAS FASTINGP ERFORMED BY: RUBEN Amaro6370 [address] RoadDublin [place] [id number] Ketones Ql (U) Negative Normal Comprehens иван Internal Medicine; [facility] Work Phone: Comment on above: PATIENT WAS FASTINGP ERFORMED BY: RUBEN Trevinolin6370 [address] RoadDublin [place] [id number] Leukocyte esterase Test strip Ql (U) Negative Normal [facility] Work Phone: Comment on above: PATIENT WAS FASTINGP ERFORMED BY: RUBEN LabParker TrevinoZsadfg3520 [address] RoadDublin [place] [id number] Leukocyte esterase Test strip Ql (U) Negative Normal [facility]; [facility] Work Phone: Comment on above: PATIENT WAS FASTINGP ERFORMED BY: RUBEN Trevinolin6370 [address] RoadDublin [place] [id number] Microscopic observation LM Nom (Urine sed) See below: Normal [facility] Work Phone: Comment on above: Microscopic was evita cated and was performed. PATIENT WAS FASTINGP ERFORMED BY: RUBEN Amaro6370 [address] RoadDublin [place] [id number] Microscopic observation LM Nom (Urine sed) MICRON Normal [facility] Work Phone: Comment on above: Microscopic follows if indicated. PATIENT WAS FASTINGP ERFORMED BY: RUBEN Amaro6370 [address] RoadDublin [place] [id number] Nitrite Ql (U) Negative Normal Comprehens иван Internal Medicine Work Phone: Comment on above: PATIENT WAS FASTINGP ERFORMED BY: RUBEN Amaro6370 [address] RoadDublin [place] [id number] Nitrite Ql (U) Negative Normal Comprehens иван Internal Medicine; [facility] Work Phone: Comment on above: PATIENT WAS FASTINGP ERFORMED BY: RUBEN Amaro6370 [address] RoadDublin [place] [id number] Nitrite Test strip Ql (U) Negative Normal [facility] Work Phone: pH (U) 6.5 [pH] Normal 5.0-7.5 [facility] Work Phone: Comment on above: PATIENT WAS FASTINGP ERFORMED BY: RUBEN Trevinolin6370 [address] RoadDublin [place] [id number] pH Test strip (U) 6.5 [pH] Normal 5.0-7.5 Compreh ensive Internal Medicine Work Phone: Protein Ql (U) Negative Normal Comprehens иван Internal Medicine Work Phone: Comment on above: PATIENT WAS FASTINGP ERFORMED BY: RUBEN Trevinolin6370 [address] RoadDublin [place] [id number] Protein Ql (U) Negative Normal Comprehens иван Internal Medicine; [facility] Work Phone: Comment on above: PATIENT WAS FASTINGP ERFORMED BY: RUBEN Trevinolin6370 [address] RoadDublin [place] [id number] Protein Test strip Ql (U) Negative Normal [facility] Work Phone: Specific gravity Relative Density (U) 1.023 1 Normal 1.005-1.030 Comprehensi ve Internal Medicine Work Phone: Comment on above: PATIENT WAS FASTINGP ERFORMED BY: velingo [facility] Kgqurt0385 [address] RoadDublin [place] [id number] Urobilinogen (U) [Mass/Vol] 0.2 mg/dL Normal 0.2-1.0 [facility]; [facility] Work Phone: Comment on above: PATIENT WAS FASTINGP ERFORMED BY: velingo [facility] Onmvzn9296 [address] RoadDublin [place] [id number] Urobilinogen Test strip mass conc (U) 0.2 mg/dL Normal 0.2-1.0 Comprehensiv e Internal Medicine Work Phone: Comment on above: PATIENT WAS FASTINGP ERFORMED BY: CB [facility] Gwwuxs5887 [address] RoadDublin [place] [id number] CALCIFIDIOL (75199) VIT D 25 Ordered By: Die Sizer on 06-02-2015 25-Hydroxyvitamin D2+25-Hydroxyvitamin D3 mass conc 55.9 ng/mL Normal 30.0-100.0 [facility] Internal Medicine Work Phone: Comment on above: Vitamin D deficiency has been defined by the [place] of[facility]cine and an Endocrine Society practice guideline as alevel of serum 25-OH vitamin D less than 20 ng/mL (1,2).The Endocrine Society went on to further define vitamin Dinsufficiency as a level between 21 and 29 ng/mL (2).1. IOM ([place] of Medicine). 2010. Dietary reference intakes for calcium and D. [place]: The National Academies Press.2. Krystal MF, Ashtyn GREENBERG, Cassandra FLEMING, et al. Evaluation, treatment, and prevention of vitamin D deficiency: an Endocrine Society clinical practice guideline. JCEM. 2010; 96(7):1911-30. PATIENT WAS FASTINGP ERFORMED BY: velingo [facility] Okqitz8866 [address] RoadDublin [place] [id number] CBC W/AUTO DIFF WBC (77365)O rdered By: Die Sizer on 06-02-2015 Basophils (Bld) [#/Vol] 0.0 {x10E3/uL} Normal 0.0-0.2 [facility] Work Phone: Comment on above: PATIENT WAS FASTINGP ERFORMED BY: [address] [id number] Information: [id number] Basophils (Bld) [#/Vol] 0.0 10*3/uL Normal 0.0-0.2 [facility]; [facility] Work Phone: Comment on above: PATIENT WAS FASTINGP ERFORMED BY: RUBEN [address] [id number] Information: [id number] Basophils Auto #/vol (Bld) 0.0 {x10E3/uL} Normal 0.0-0.2 [facility] Work Phone: Basophils/100 WBC (Bld) 0 % Normal [facility] Work Phone: Comment on above: PATIENT WAS FASTINGP ERFORMED BY: [address] [id number] Information: [id number] Basophils/100 WBC Auto (Bld) 0 % Normal [facility] Work Phone: Eosinophils (Bld) [#/Vol] 0.2 {x10E3/uL} Normal 0.0-0.4 [facility] Work Phone: Comment on above: PATIENT WAS FASTINGP ERFORMED BY: [place] 7348670 [facility] [id number] Information: [id number] Eosinophils (Bld) [#/Vol] 0.2 10*3/uL Normal 0.0-0.4 [facility]; [facility] Work Phone: Comment on above: PATIENT WAS FASTINGP ERFORMED BY: [address]in [place] [id number] Information: [id number] Eosinophils Auto #/vol (Bld) 0.2 {x10E3/uL} Normal 0.0-0.4 [facility] Work Phone: Eosinophils/100 WBC (Bld) 2 % Normal [facility] Work Phone: Comment on above: PATIENT WAS FASTINGP ERFORMED BY: [address] [id number] Information: [id number] Eosinophils/100 WBC Auto (Bld) 2 % Normal [facility] Work Phone: Erythrocyte distribution width (RBC) [Ratio] 13.2 % Normal 12.3-15.4 [facility] Work Phone: Comment on above: PATIENT WAS FASTINGP ERFORMED BY: [address] [id number] Information: [id number] Erythrocyte distribution width Auto Ratio (RBC) 13.2 % Normal 12.3-15.4 [facility] Work Phone: Hematocrit (Bld) [Volume fraction] 38.3 % Normal 34.0-46.6 [facility] Internal Medicine Work Phone: Comment on above: PATIENT WAS FASTINGP ERFORMED BY: [place] 7348670 [facility] [id number] Information: [id number] Hematocrit Auto Volume Fraction (Bld) 38.3 % Normal 34.0-46.6 [facility] Internal Medicine Work Phone: Hemoglobin mass conc (Bld) 12.6 g/dL Normal 11.1-15.9 [facility] Work Phone: Comment on above: PATIENT WAS FASTINGP ERFORMED BY: [place] 7348670 [facility] [id number] Information: [id number] Immature granulocytes #/vol (Bld) 0.0 {x10E3/uL} Normal 0.0-0.1 [facility] Work Phone: Comment on above: PATIENT WAS FASTINGP ERFORMED BY: RUBEN Lorrie Viswcx2892 [facility] [id number] Information: [id number] Immature granulocytes (Bld) [#/Vol] 0.0 10*3/uL Normal 0.0-0.1 [facility]; [facility] Work Phone: Comment on above: PATIENT WAS FASTINGP ERFORMED BY: [address] [id number] Information: [id number] Immature granulocytes/100 WBC (Bld) 0 % Normal [facility] Work Phone: Comment on above: PATIENT WAS FASTINGP ERFORMED BY: [address] [id number] Information: [id number] Lymphocytes (Bld) [#/Vol] 1.9 {x10E3/uL} Normal 0.7-3.1 [facility] Work Phone: Comment on above: PATIENT WAS FASTINGP ERFORMED BY: RUBEN [facility] Pyfetv[address] [id number] Information: [id number] Lymphocytes (Bld) [#/Vol] 1.9 10*3/uL Normal 0.7-3.1 [facility]; [facility] Work Phone: Comment on above: PATIENT WAS FASTINGP ERFORMED BY: [place] 7348670 [facility] [id number] Information: [id number] Lymphocytes Auto #/vol (Bld) 1.9 {x10E3/uL} Normal 0.7-3.1 [facility] Work Phone: Lymphocytes/100 WBC (Bld) 27 % Normal [facility] Work Phone: Comment on above: PATIENT WAS FASTINGP ERFORMED BY: [address]Dublin [place] [id number] Information: [id number] Lymphocytes/100 WBC Auto (Bld) 27 % Normal [facility] Work Phone: MCH (RBC) [Entitic mass] 31.0 pg Normal 26.6-33.0 [facility] Internal Medicine Work Phone: Comment on above: PATIENT WAS FASTINGP ERFORMED BY: [address] [id number] Information: [id number] MCH Auto Entitic mass (RBC) 31.0 pg Normal 26.6-33.0 [facility] Internal Medicine Work Phone: MCHC (RBC) [Mass/Vol] 32.9 g/dL Normal 31.5-35.7 [facility] prehensive Internal Medicine Work Phone: Comment on above: PATIENT WAS FASTINGP ERFORMED BY: [address] [id number] Information: [id number] MCHC Auto mass conc (RBC) 32.9 g/dL Normal 31.5-35.7 [facility] Internal Medicine Work Phone: MCV (RBC) [Entitic vol] 94 fL Normal 79-97 [facility] Internal Medicine Work Phone: Comment on above: PATIENT WAS FASTINGP ERFORMED BY: [address] [id number] Information: [id number] MCV Auto Entitic volume (RBC) 94 fL Normal 79-97 [facility] Internal Medicine Work Phone: Monocytes (Bld) [#/Vol] 0.5 {x10E3/uL} Normal 0.1-0.9 [facility] Internal Medicine Work Phone: Comment on above: PATIENT WAS FASTINGP ERFORMED BY: [address] [id number] Information: [id number] Monocytes (Bld) [#/Vol] 0.5 10*3/uL Normal 0.1-0.9 [facility]; [facility] Work Phone: Comment on above: PATIENT WAS FASTINGP ERFORMED BY: RUBEN Amaro6370 [facility] [id number] Information: [id number] Monocytes Auto #/vol (Bld) 0.5 {x10E3/uL} Normal 0.1-0.9 [facility] Work Phone: Monocytes/100 WBC (Bld) 6 % Normal [facility] Work Phone: Comment on above: PATIENT WAS FASTINGP ERFORMED BY: RUBEN Trevinolin6370 [facility] [id number] Information: [id number] Monocytes/100 WBC Auto (Bld) 6 % Normal [facility] Work Phone: Neutrophils (Bld) [#/Vol] 4.5 {x10E3/uL} Normal 1.4-7.0 [facility] Work Phone: Comment on above: PATIENT WAS FASTINGP ERFORMED BY: RUBEN Trevinolin6370 [facility] [id number] Information: [id number] Neutrophils (Bld) [#/Vol] 4.5 10*3/uL Normal 1.4-7.0 [facility]; [facility] Work Phone: Comment on above: PATIENT WAS FASTINGP ERFORMED BY: RUBEN [place] 5239970 [facility] [id number] Information: [id number] Neutrophils Auto #/vol (Bld) 4.5 {x10E3/uL} Normal 1.4-7.0 [facility] Work Phone: Neutrophils/100 WBC (Bld) 65 % Normal [facility] Work Phone: Comment on above: PATIENT WAS FASTINGP ERFORMED BY: RUBEN [place] 5239970 [facility] [id number] Information: [id number] Neutrophils/100 WBC Auto (Bld) 65 % Normal [facility] Work Phone: Platelets (Bld) [#/Vol] 394 {x10E3/uL} Abnormal 150-379 [facility] Work Phone: Comment on above: PATIENT WAS FASTINGP ERFORMED BY: RUBEN [place] 5239970 [facility] [id number] Information: [id number] Platelets (Bld) [#/Vol] 394 10*3/uL Abnormal 150-379 [facility] Internal Medicine; [facility] Work Phone: Comment on above: PATIENT WAS FASTINGP ERFORMED BY: RUBEN [facility] Xcdbni8781 [facility] [id number] Information: [id number] Platelets Auto #/vol (Bld) 394 {x10E3/uL} Abnormal 150-379 [facility] Work Phone: RBC (Bld) [#/Vol] 4.07 {x10E6/uL} Normal 3.77-5.28 [facility] Internal Medicine Work Phone: Comment on above: PATIENT WAS FASTINGP ERFORMED BY: RUBEN Trevinolin6370 [facility] [id number] Information: [id number] RBC (Bld) [#/Vol] 4.07 10*6/uL Normal 3.77-5.28 [facility] Internal Medicine; [facility] Work Phone: Comment on above: PATIENT WAS FASTINGP ERFORMED BY: RUBEN [facility]6370 [facility] [id number] Information: [id number] RBC Auto #/vol (Bld) 4.07 {x10E6/uL} Normal 3.77-5.28 [facility] Work Phone: WBC (Bld) [#/Vol] 7.0 {x10E3/uL} Normal 3.4-10.8 Com prehensive Internal Medicine Work Phone: Comment on above: PATIENT WAS FASTINGP ERFORMED BY: RUBEN LabCo Xjcygk1930 [address] RoadDublin [place] [id number] Information: [id number] WBC (Bld) [#/Vol] 7.0 10*3/uL Normal 3.4-10.8 [facility] Internal Medicine; [facility] Work Phone: Comment on above: PATIENT WAS FASTINGP ERFORMED BY: RUBEN LabCo Dgttpg0550 [address] RoadSwain Community Hospitalin [place] [id number] Information: [id number] WBC Auto #/vol (Bld) 7.0 {x10E3/uL} Normal 3.4-10.8 [facility] Work Phone: METABOLIC PANEL, COMPREHENSI VE ([id number])Ordered By: Die Sizer on 06-02-2015 Albumin mass conc 4.7 g/dL Normal 3.5-5.5 Compreh [facility] Internal Medicine Work Phone: Comment on above: PATIENT WAS FASTINGP ERFORMED BY: RUBEN Lab[facility] Jidafq3065 [address] Roadblin [place] [id number] Albumin/Globulin mass ratio 1.7 {ratio} Normal 1.1-2.5 [facility] Work Phone: Comment on above: PATIENT WAS FASTINGP ERFORMED BY: LabCo Pfbezg[address]3 [address] [facility]in [place] [id number] ALP [Catalytic activity/Vol] 69 U/L Normal 39-117 [facility]; [facility] Internal Medicine Work Phone: Comment on above: PATIENT WAS FASTINGP ERFORMED BY: [facility] Hpxiil4918 [address] RoadDublin [place] [id number] ALP enzyme act/vol 69 [iU]/L Normal 39-117 [facility] Internal Medicine Work Phone: Comment on above: PATIENT WAS FASTINGP ERFORMED BY: [facility] Kyslpk7118 [address] RoadDublin [place] [id number] ALT [Catalytic activity/Vol] 11 U/L Normal 0-32 [facility]; [facility] Work Phone: Comment on above: PATIENT WAS FASTINGP ERFORMED BY: RUBEN LabCohiro AmaroDhquak[address] [facility] Hospitalbl[facility] [place] [id number] ALT enzyme act/vol 11 [iU]/L Normal 0-32 Compre [facility] Internal Medicine Work Phone: Comment on above: PATIENT WAS FASTINGP ERFORMED BY: RUBEN LabCohiro AmaroEtefxp[address]6 [address] [facility]in [place] [id number] AST [Catalytic activity/Vol] 18 U/L Normal 0-40 [facility]; [facility] Internal Medicine Work Phone: Comment on above: PATIENT WAS FASTINGP ERFORMED BY: RUBEN LabCohiro TrevinoCfnmnx6796 [address] [facility] [place] [id number] AST enzyme act/vol 18 [iU]/L Normal 0-40 [facility] Internal Medicine Work Phone: Comment on above: PATIENT WAS FASTINGP ERFORMED BY: RUBEN LabParker Cgrvxb[address] [facility] [id number] Bilirubin mass conc 0.5 mg/dL Normal 0.0-1.2 Compr ensive Internal Medicine Work Phone: Comment on above: PATIENT WAS FASTINGP ERFORMED BY: RUBEN Angy Trevinolin6370 [facility] [id number] Calcium mass conc 10.2 mg/dL Normal 8.7-10.2 Compreh ensive Internal Medicine Work Phone: Comment on above: PATIENT WAS FASTINGP ERFORMED BY: RUBEN LabCo Jbpcbw[address]87 [address] [facility] [id number] Chloride molar conc 97 mmol/L Normal 97-108 Compr ehensive Internal Medicine Work Phone: Comment on above: PATIENT WAS FASTINGP ERFORMED BY: RUBEN [facility] Nqtlxq[address] [facility] Hospitalblin [place] [id number] CO2 molar conc 25 mmol/L Normal 18-29 Comprehens иван Internal Medicine Work Phone: Comment on above: PATIENT WAS FASTINGP ERFORMED BY: RUBEN [facility] Ucipzy8618 [facility] [id number] Creatinine mass conc 0.92 mg/dL Normal 0.57-1.00 Comp rehensive Internal Medicine Work Phone: Comment on above: PATIENT WAS FASTINGP ERFORMED BY: [facility] Kvsekp5752 [facility] [id number] GFR/1.73 sq M predicted among blacks CKD-EPI vol rate/area (S/P/Bld) 86 mL/min/1.73 Normal Comprehensiv e Internal Medicine Work Phone: Comment on above: PATIENT WAS FASTINGP ERFORMED BY: [facility]6370 [facility] [id number] GFR/1.73 sq M predicted among non-blacks CKD-EPI vol rate/area (S/P/Bld) 74 mL/min/1.73 Normal [facility] Work Phone: Comment on above: PATIENT WAS FASTINGP ERFORMED BY: [facility]6370 [facility] [id number] Globulin (S) [Mass/Vol] 2.7 g/dL Normal 1.5-4.5 [facility] Work Phone: Comment on above: PATIENT WAS FASTINGP ERFORMED BY: [facility]6370 [facility] [id number] Globulin Calculated mass conc (S) 2.7 g/dL Normal 1.5-4.5 [facility] Work Phone: Glucose mass conc 99 mg/dL Normal 65-99 Compreh ensive Internal Medicine Work Phone: Comment on above: PATIENT WAS FASTINGP ERFORMED BY: [facility] Unckzp5747 [facility] [id number] Potassium molar conc 4.2 mmol/L Normal 3.5-5.2 Comp rehensive Internal Medicine Work Phone: Comment on above: PATIENT WAS FASTINGP ERFORMED BY: [facility] Kvuhtt5022 [facility] [id number] Protein mass conc 7.4 g/dL Normal 6.0-8.5 Compreh ensive Internal Medicine Work Phone: Comment on above: PATIENT WAS FASTINGP ERFORMED BY: RUBEN MelodyParker TrevinoQykyjj4616 [address] [facility]in [place] [id number] Sodium molar conc 141 mmol/L Normal 134-144 Compreh ensive Internal Medicine Work Phone: Comment on above: PATIENT WAS FASTINGP ERFORMED BY: RUBEN Trevinolin6370 [address] Car[facility] [id number] Urea nitrogen mass conc 16 mg/dL Normal 6-24 [facility] Work Phone: Comment on above: PATIENT WAS FASTINGP ERFORMED BY: RUBEN Trevinolin6370 [facility] [id number] Urea nitrogen/Creatinine mass ratio 17 mg/mg Normal 9-23 [facility] Work Phone: Comment on above: PATIENT WAS FASTINGP ERFORMED BY: RUBEN Andrew Jxunfy0426 [facility] [id number] MICROALBUMINOrdered By: Syst em Senior Accountant on 06-02-2015 Albumin DL <= 20 mg/L mass conc (U) 12.8 ug/mL Normal 0.0-17.0 [facility] Work Phone: Comment on above: PATIENT WAS FASTINGP ERFORMED BY: RUBEN Trevinolin6370 [facility] [id number] Albumin/Creatinine mass ratio (U) 7.9 {mg/g_creat} Normal 0.0-30.0 [facility] Work Phone: Comment on above: PATIENT WAS FASTINGP ERFORMED BY: RUBEN [facility] Viwsas4441 [place] [facility] [id number] Creatinine mass conc (U) 162.7 mg/dL Normal 15.0-278.0 [facility] Work Phone: Comment on above: PATIENT WAS FASTINGP ERFORMED BY: RUBEN Trevinolin6370 [facility] [id number] Microscopic ExaminationOrder ed By: Die Sizer on 06-02-2015 Bacteria LM.HPF #/area (Urine sed) [...] 5 [facility] Work Phone: TSH ([id number])Ordered By: Syste m Senior Accountant on 06-02-2015 Thyrotropin Qn 1.480 {uIU/mL} Normal 0.450-4.500 Compr ehensive Internal Medicine Work Phone: Comment on above: PATIENT WAS FASTINGP ERFORMED BY: RUBEN [facility] Ymrdzk0493 Shukla RoadDublin [place] [id number] URINALYSIS, W/ MICRO ([id number]) Ordered By: Die Sizer on 06-02-2015 Appearance Nom (U) Clear Normal Compre hensive Internal Medicine Work Phone: Comment on above: PATIENT WAS FASTINGP ERFORMED BY: RUBEN [facility] Qmiiwz2874 Shukla RoadDublin [place] [id number] Bilirubin Ql (U) Negative Normal Comprehe nsive Internal Medicine Work Phone: Comment on above: PATIENT WAS FASTINGP ERFORMED BY: CB [facility] Egwbuu3463 Shukla RoadDublin [place] [id number] Bilirubin Ql (U) Negative Normal Comprehe nsive Internal Medicine; [facility] Work Phone: Comment on above: PATIENT WAS FASTINGP ERFORMED BY: CB [facility] Vtftuk2987 Shukla RoadDublin [place] [id number] Color Nom (U) Yellow Normal Comprehensi ve Internal Medicine Work Phone: Comment on above: PATIENT WAS FASTINGP ERFORMED BY: CB [facility] Nouudz3962 Shukla RoadDublin [place] [id number] Glucose Ql (U) Negative Normal Comprehens иван Internal Medicine Work Phone: Comment on above: PATIENT WAS FASTINGP ERFORMED BY: RUBEN Amaro6370 [address]la RoadDublin [place] [id number] Glucose Ql (U) Negative Normal Comprehens иван Internal Medicine; [facility] Work Phone: Comment on above: PATIENT WAS FASTINGP ERFORMED BY: RUBEN Amaro6370 [address] RoadDublin [place] [id number] Hemoglobin Ql (U) Negative Normal Compreh ensive Internal Medicine Work Phone: Comment on above: PATIENT WAS FASTINGP ERFORMED BY: RUBEN Amaro6370 [address] RoadDublin [place] [id number] Hemoglobin Ql (U) Negative Normal Compreh ensive Internal Medicine; [facility] Work Phone: Comment on above: PATIENT WAS FASTINGP ERFORMED BY: RUBEN Amaro6370 [address] RoadDublin [place] [id number] Hemoglobin Test strip Ql (U) Negative Normal [facility] Work Phone: Ketones Ql (U) Negative Normal Comprehens иван Internal Medicine Work Phone: Comment on above: PATIENT WAS FASTINGP ERFORMED BY: RUBEN Amaro6370 [address] RoadDublin [place] [id number] Ketones Ql (U) Negative Normal Comprehens иван Internal Medicine; [facility] Work Phone: Comment on above: PATIENT WAS FASTINGP ERFORMED BY: RUBEN Trevinolin6370 [address] RoadDublin [place] [id number] Leukocyte esterase Test strip Ql (U) Negative Normal [facility] Work Phone: Comment on above: PATIENT WAS FASTINGP ERFORMED BY: RUBEN Amaro6370 [address] RoadDublin [place] [id number] Leukocyte esterase Test strip Ql (U) Negative Normal [facility]; [facility] Work Phone: Comment on above: PATIENT WAS FASTINGP ERFORMED BY: RUBEN Trevinolin6370 [address] RoadDublin [place] [id number] Microscopic observation LM Nom (Urine sed) See below: Normal [facility] Work Phone: Comment on above: Microscopic was evita cated and was performed. PATIENT WAS FASTINGP ERFORMED BY: RUBEN LabParker TrevinoOoehyp3606 Shukla Roadblin [place] [id number] Microscopic observation LM Nom (Urine sed) MICRON Normal [facility] Work Phone: Comment on above: Microscopic follows if indicated. PATIENT WAS FASTINGP ERFORMED BY: RUBEN LabParker TrevinoUgiolx4670 [address] [facility] [id number] Nitrite Ql (U) Negative Normal Comprehens иван Internal Medicine Work Phone: Comment on above: PATIENT WAS FASTINGP ERFORMED BY: RUBEN Trevinolin6370 [address] [facility] [id number] Nitrite Ql (U) Negative Normal Comprehens иван Internal Medicine; [facility] Work Phone: Comment on above: PATIENT WAS FASTINGP ERFORMED BY: RUBEN Trevinolin6370 [address] [facility] [id number] Nitrite Test strip Ql (U) Negative Normal [facility] Work Phone: pH (U) 6.0 [pH] Normal 5.0-7.5 [facility] Work Phone: Comment on above: PATIENT WAS FASTINGP ERFORMED BY: RUBEN LabParker TrevinoSsbavp6886 [address] [facility] [id number] pH Test strip (U) 6.0 [pH] Normal 5.0-7.5 Compreh ensive Internal Medicine Work Phone: Protein Ql (U) Negative Normal Comprehens иван Internal Medicine Work Phone: Comment on above: PATIENT WAS FASTINGP ERFORMED BY: RUBEN LabParker TrevinoBffqff[address] [facility] Hospitalblin [place] [id number] Protein Ql (U) Negative Normal Comprehens иван Internal Medicine; [facility] Work Phone: Comment on above: PATIENT WAS FASTINGP ERFORMED BY: RUBEN [facility] Pdyfqb7463 [facility] [id number] Protein Test strip Ql (U) Negative Normal [facility] Work Phone: Specific gravity Relative Density (U) 1.028 1 Normal 1.005-1.030 Comprehensi ve Internal Medicine Work Phone: Comment on above: PATIENT WAS FASTINGP ERFORMED BY: Caixin MediaSaint Luke'S Hospital Cgwbmr5003 [facility] [id number] Urobilinogen (U) [Mass/Vol] 0.2 mg/dL Normal 0.2-1.0 [facility]; [facility] Work Phone: Comment on above: PATIENT WAS FASTINGP ERFORMED BY: openPeople Gskcpg5803 [address] ProLedge Bookkeeping ServicesCritical access hospital [id number] Urobilinogen Test strip mass conc (U) 0.2 mg/dL Normal 0.2-1.0 Comprehensiv e Internal Medicine Work Phone: Comment on above: PATIENT WAS FASTINGP ERFORMED BY: Caixin MediaSaint Luke'S Hospital Namstz2211 [facility] [id number] PAP I-G w/rfx hrHPVOrdered B y: Die Sizer on 03-22-2015 COMM . Normal [facility] Work Phone: HPV RFLX Comment Normal [facility] Work Phone: Comment on above: The HPV DNA reflex c riteria were not met with this specimenresult therefore, no HPV testing was performed.Performed at: [address], [place] [id number] Director: Kaiser Pennington MD, Phone: [phone] [facility] Cytot echnologist ([facility]) This liquid based Th inPrep(R) pap test was screened withthe use of an image guided system. NEGATIVE FOR INTRAEP ITHELIAL LESION AND MALIGNANCY.FUNGAL ORGANISMS MORPHOLOGICALLY CONSISTENT WITH YAZMIN SPECIES AREPRESENT.THIS SPECIMEN WAS RESCREENED PART OF OUR HEALTH PROFESSOR PROGRAM. Teresa Neal, Cyto technologist ([facility]) Satisfactory for josé luation. Endocervical and/or squamous metaplasticcells (endocervical component) are present. The Pap smear is a s creening test designed to aid in thedetection of premalignant and malignant conditions of theuterine cervix. It is not a diagnostic procedure andshould not be used as the sole means of detecting cervicalcancer. Both false-positive and false-negative reports dooccur. ENDOMETRIAL BX/CURETTINGSOrd ered By: Die Sizer on 02-28-2015 ENDOMETRIAL BX/CURETTINGS See Note Normal [facility] Work Phone: Comment on above: Patient: ANITHA VILLAGRAN : 1970 (44/F) Acct Num: [id number] Phys: Tisha ACKERMAN,Janelle Unit Num: [id number] [place] [facility] [place]: [id number] Received: 03/01/15818 Spec Type: ENDOM BX/C TISSUES TISSUES: GROSS DESCRIPTION Received is one container labeled with the patient name and designated endometrial curettings. The specimen consists of multiple fragments of hemorrhagic mucoid tissue measuring in aggregate 3 x 2.5 x 0.1 cm. The specimenis totally submitted in one cassette. / SJ:anneliese 03/01/15 TC:5 CPT: 96583 HEADER OPERATION: Hysteroscopy, Diagnostic, D AND C PRE-OP DIAGNOSIS: Irregular menstrual bleeding, endometrial thickening TISSUE SUBMITTED: Endometrial curettings MICROSCOPIC DESCRIPTION Slides are reviewed. MICROSCOPIC DIAGNOSIS Endometrium, curettings: Fragments of endocervix with no significant pathologic change. Disarticulated squamous epithelial cells with no significant pathologic change. Rare strips of benign superficial lower uterine endometrium. AM:sl 03/02/15 Signed Juan Francisco Arelis 03/02/15 ,UrineOrdered By: Andres ystem Senior Accountant on 02-28-2015 HCGUQUAL Negative Normal [facility] Work Phone: Comment on above: Very dilute urine sp ecimens, as indicated by a low specificgravity, may not contain branch service representative levels of hCG.If is still suspected, a first morning urinespecimen should be collected 48 hours later and tested. CBC With Differential/Platel etOrdered By: Die Sizer on 11-25-2014 Basophils Auto #/vol (Bld) 0.0 {x10E3/uL} Normal 0.0-0.2 [facility] Work Phone: Basophils/100 WBC Auto (Bld) 0 % Normal [facility] Internal Medicine Work Phone: Eosinophils Auto #/vol (Bld) 0.2 {x10E3/uL} Normal 0.0-0.4 [facility] Internal Medicine Work Phone: Eosinophils/100 WBC Auto (Bld) 2 % Normal [facility] Internal Medicine Work Phone: Erythrocyte distribution width Auto Ratio (RBC) 13.3 % Normal 12.3-15.4 [facility] Internal Medicine Work Phone: Hematocrit Auto Volume Fraction (Bld) 39.1 % Normal 34.0-46.6 Comprehens [facility] Internal Medicine Work Phone: Hemoglobin mass conc (Bld) 12.6 g/dL Normal 11.1-15.9 [facility] Internal Medicine Work Phone: Immature granulocytes #/vol (Bld) 0.0 {x10E3/uL} Normal 0.0-0.1 [facility] Internal Medicine Work Phone: Immature granulocytes/100 WBC (Bld) 0 % Normal [facility] Internal Medicine Work Phone: Lymphocytes Auto #/vol (Bld) 2.3 {x10E3/uL} Normal 0.7-3.1 [facility] Internal Medicine Work Phone: Lymphocytes/100 WBC Auto (Bld) 29 % Normal [facility] Internal Medicine Work Phone: MCH Auto Entitic mass (RBC) 30.8 pg Normal 26.6-33.0 [facility] Internal Medicine Work Phone: MCHC Auto mass conc (RBC) 32.2 g/dL Normal 31.5-35.7 [facility] Internal Medicine Work Phone: MCV Auto Entitic volume (RBC) 96 fL Normal 79-97 [facility] Internal Medicine Work Phone: Monocytes Auto #/vol [...] Auto #/vol (Bld) 7.9 {x10E3/uL} Normal 3.4-10.8 [facility] Internal Medicine Work Phone: Comp. Metabolic Panel (14)Or dered By: Die Sizer on 11-25-2014 Albumin mass conc 4.6 g/dL Normal 3.5-5.5 [facility] Internal Medicine Work Phone: Albumin/Globulin mass ratio 2.1 {ratio} Normal 1.1-2.5 [facility] Internal Medicine Work Phone: ALP enzyme act/vol 58 [iU]/L Normal 39-117 [facility] Internal Medicine Work Phone: ALT enzyme act/vol 9 [iU]/L Normal 0-32 [facility] Internal Medicine Work Phone: AST enzyme act/vol 15 [iU]/L Normal 0-40 [facility] Internal Medicine Work Phone: Bilirubin mass conc 0.3 mg/dL Normal 0.0-1.2 Compr [facility] Internal Medicine Work Phone: Calcium mass conc 9.8 mg/dL Normal 8.7-10.2 Compreh [facility] Internal Medicine Work Phone: Chloride molar conc 97 mmol/L Normal 97-108 Compr [facility] Internal Medicine Work Phone: CO2 molar conc [...] Lipid Panel With LDL/HDL Rat ioOrdered By: Die Sizer on 11-25-2014 Cholesterol in HDL mass conc [...] Cholesterol mass conc 191 mg/dL Normal 100-199 [facility] Work Phone: Triglyceride mass conc 123 mg/dL Normal 0-149 [facility] Work Phone: Microalb/Creat Ratio, Randm UrOrdered By: Die Sizer on 11-25-2014 Albumin DL <= 20 mg/L mass conc (U) 3.1 ug/mL Normal 0.0-17.0 [facility] Work Phone: Albumin/Creatinine mass ratio (U) 6.0 {mg/g_creat} Normal 0.0-30.0 [facility] Work Phone: Creatinine mass conc (U) 51.9 mg/dL Normal 15.0-278.0 [facility] Internal Medicine Work Phone: TSHOrdered By: System Manage r on 11-25-2014 Thyrotropin Qn 1.650 {uIU/mL} Normal 0.450-4.500 [facility] Internal Medicine Work Phone: Vitamin D, 25-HydroxyOrdered By: Die Sizer on 11-25-2014 25-Hydroxyvitamin D2+25-Hydroxyvitamin D3 mass conc 49.2 ng/mL Normal 30.0-100.0 [facility] Internal Medicine Work Phone: Comment on above: Vitamin D deficiency has been defined by the [place] ofMedicine and an Endocrine Society practice guideline as alevel of serum 25-OH vitamin D less than 20 ng/mL (1,2).The Endocrine Society went on to further define vitamin Dinsufficiency as a level between 21 and 29 ng/mL (2).1. IOM ([place] of Medicine). 2010. Dietary reference intakes for calcium and D. [place]: The National Academies Press.2. Krystal MF, Ashtyn GREENBERG, Cassandra FLEMING, et al. Evaluation, treatment, and prevention of vitamin D deficiency: an Endocrine Society clinical practice guideline. JCEM. 2010; 96(7):1911-30. CBC WITH MANUAL DIFF (93884) Ordered By: Die Sizer on 10-06-2013 Basophils (Bld) [#/Vol] 0.0 {x10E3/uL} Normal 0.0-0.2 [facility] Work Phone: Comment on above: PATIENT WAS FASTINGP ERFORMED BY: [address] [id number] Information: [id number] Basophils (Bld) [#/Vol] 0.0 10*3/uL Normal 0.0-0.2 [facility]; [facility] Work Phone: Comment on above: PATIENT WAS FASTINGP ERFORMED BY: [address] [id number] Information: [id number] Basophils Auto #/vol (Bld) 0.0 {x10E3/uL} Normal 0.0-0.2 [facility] Work Phone: Basophils/100 WBC (Bld) 0 % Normal 0-3 [facility] Work Phone: Comment on above: PATIENT WAS FASTINGP ERFORMED BY: [place] 7348670 [facility] [id number] Information: [id number] Basophils/100 WBC Auto (Bld) 0 % Normal 0-3 [facility] Work Phone: Eosinophils (Bld) [#/Vol] 0.2 {x10E3/uL} Normal 0.0-0.4 [facility] Work Phone: Comment on above: PATIENT WAS FASTINGP ERFORMED BY: [place] 7348670 [facility] [id number] Information: [id number] Eosinophils (Bld) [#/Vol] 0.2 10*3/uL Normal 0.0-0.4 [facility]; [facility] Work Phone: Comment on above: PATIENT WAS FASTINGP ERFORMED BY: RUBEN [place] [id number] [facility] [id number] Information: [id number] Eosinophils Auto #/vol (Bld) 0.2 {x10E3/uL} Normal 0.0-0.4 [facility] Work Phone: Eosinophils/100 WBC (Bld) 3 % Normal 0-5 [facility] Work Phone: Comment on above: PATIENT WAS FASTINGP ERFORMED BY: RUBEN [place] [id number] [facility] [id number] Information: [id number] Eosinophils/100 WBC Auto (Bld) 3 % Normal 0-5 [facility] Work Phone: Erythrocyte distribution width (RBC) [Ratio] 13.2 % Normal 12.3-15.4 [facility] Work Phone: Comment on above: PATIENT WAS FASTINGP ERFORMED BY: RUBEN [facility]6370 [facility] [id number] Information: [id number] Erythrocyte distribution width Auto Ratio (RBC) 13.2 % Normal 12.3-15.4 [facility] Work Phone: Hematocrit (Bld) [Volume fraction] 38.6 % Normal 34.0-46.6 [facility] Work Phone: Comment on above: PATIENT WAS FASTINGP ERFORMED BY: RUBEN [facility]6370 [facility] [id number] Information: [id number] Hematocrit Auto Volume Fraction (Bld) 38.6 % Normal 34.0-46.6 [facility] Internal Medicine Work Phone: Hemoglobin mass conc (Bld) 12.3 g/dL Normal 11.1-15.9 [facility] Work Phone: Comment on above: PATIENT WAS FASTINGP ERFORMED BY: [place] 7348670 [facility] [id number] Information: [id number] Immature granulocytes #/vol (Bld) 0.0 {x10E3/uL} Normal 0.0-0.1 [facility] Work Phone: Comment on above: PATIENT WAS FASTINGP ERFORMED BY: [address] [id number] Information: [id number] Immature granulocytes (Bld) [#/Vol] 0.0 10*3/uL Normal 0.0-0.1 [facility]; [facility] Work Phone: Comment on above: PATIENT WAS FASTINGP ERFORMED BY: [address] [id number] Information: [id number] Immature granulocytes/100 WBC (Bld) 0 % Normal 0-2 [facility] Work Phone: Comment on above: PATIENT WAS FASTINGP ERFORMED BY: [address] [id number] Information: [id number] Lymphocytes (Bld) [#/Vol] 1.8 {x10E3/uL} Normal 0.7-3.1 [facility] Work Phone: Comment on above: PATIENT WAS FASTINGP ERFORMED BY: [address] [id number] Information: [id number] Lymphocytes (Bld) [#/Vol] 1.8 10*3/uL Normal 0.7-3.1 [facility]; [facility] Work Phone: Comment on above: PATIENT WAS FASTINGP ERFORMED BY: [place] 7348670 [facility] [id number] Information: [id number] Lymphocytes Auto #/vol (Bld) 1.8 {x10E3/uL} Normal 0.7-3.1 [facility] Work Phone: Lymphocytes/100 WBC (Bld) 28 % Normal 14-46 [facility] Work Phone: Comment on above: PATIENT WAS FASTINGP ERFORMED BY: [address] [id number] Information: [id number] Lymphocytes/100 WBC Auto (Bld) 28 % Normal 14-46 [facility] Work Phone: MCH (RBC) [Entitic mass] 30.3 pg Normal 26.6-33.0 [facility] Internal Medicine Work Phone: Comment on above: PATIENT WAS FASTINGP ERFORMED BY: [address] [id number] Information: [id number] MCH Auto Entitic mass (RBC) 30.3 pg Normal 26.6-33.0 [facility] Internal Medicine Work Phone: MCHC (RBC) [Mass/Vol] 31.9 g/dL Normal 31.5-35.7 [facility] Internal Medicine Work Phone: Comment on above: PATIENT WAS FASTINGP ERFORMED BY: [address] [id number] Information: [id number] MCHC Auto mass conc (RBC) 31.9 g/dL Normal 31.5-35.7 [facility] Internal Medicine Work Phone: MCV (RBC) [Entitic vol] 95 fL Normal 79-97 [facility] Internal Medicine Work Phone: Comment on above: PATIENT WAS FASTINGP ERFORMED BY: [place] 7348670 [facility] [id number] Information: [id number] MCV Auto Entitic volume (RBC) 95 fL Normal 79-97 [facility] Internal Medicine Work Phone: Monocytes (Bld) [#/Vol] 0.5 {x10E3/uL} Normal 0.1-0.9 [facility] Work Phone: Comment on above: PATIENT WAS FASTINGP ERFORMED BY: RUBEN [facility]6370 [facility] [id number] Information: [id number] Monocytes (Bld) [#/Vol] 0.5 10*3/uL Normal 0.1-0.9 [facility]; [facility] Work Phone: Comment on above: PATIENT WAS FASTINGP ERFORMED BY: [address] [id number] Information: [id number] Monocytes Auto #/vol (Bld) 0.5 {x10E3/uL} Normal 0.1-0.9 [facility] Work Phone: Monocytes/100 WBC (Bld) 7 % Normal 4-12 [facility] Work Phone: Comment on above: PATIENT WAS FASTINGP ERFORMED BY: [address] [id number] Information: [id number] Monocytes/100 WBC Auto (Bld) 7 % Normal -12 [facility] Work Phone: Neutrophils (Bld) [#/Vol] 4.0 {x10E3/uL} Normal 1.4-7.0 [facility] Work Phone: Comment on above: PATIENT WAS FASTINGP ERFORMED BY: [place] 7348670 [facility] [id number] Information: [id number] Neutrophils (Bld) [#/Vol] 4.0 10*3/uL Normal 1.4-7.0 [facility]; [facility] Work Phone: Comment on above: PATIENT WAS FASTINGP ERFORMED BY: RUBEN [facility] Gtfboj7446 [facility] [id number] Information: [id number] Neutrophils Auto #/vol (Bld) 4.0 {x10E3/uL} Normal 1.4-7.0 [facility] Work Phone: Neutrophils/100 WBC (Bld) 62 % Normal 40-74 [facility] Work Phone: Comment on above: PATIENT WAS FASTINGP ERFORMED BY: RUBEN Lorriehiro Lsxqml5092 [facility] [id number] Information: [id number] Neutrophils/100 WBC Auto (Bld) 62 % Normal 40-74 [facility] Work Phone: Platelets (Bld) [#/Vol] 302 {x10E3/uL} Normal 155-379 [facility] Work Phone: Comment on above: PATIENT WAS FASTINGP ERFORMED BY: RUBEN MelodyParker TrevinoFwllbw[address] [id number] Information: [id number] Platelets (Bld) [#/Vol] 302 10*3/uL Normal 155-379 [facility] Internal Medicine; [facility] Work Phone: Comment on above: PATIENT WAS FASTINGP ERFORMED BY: RUBEN [facility] Ttfpyy901[address] [id number] Information: [id number] Platelets Auto #/vol (Bld) 302 {x10E3/uL} Normal 155-379 [facility] Internal Medicine Work Phone: RBC (Bld) [#/Vol] 4.06 {x10E6/uL} Normal 3.77-5.28 [facility] Internal Medicine Work Phone: Comment on above: PATIENT WAS FASTINGP ERFORMED BY: RUBEN [place] [id number] [facility] [id number] Information: [id number] RBC (Bld) [#/Vol] 4.06 10*6/uL Normal 3.77-5.28 [facility]; [facility] Internal Medicine Work Phone: Comment on above: PATIENT WAS FASTINGP ERFORMED BY: RUBEN [place] 5239970 [facility] [id number] Information: [id number] RBC Auto #/vol (Bld) 4.06 {x10E6/uL} Normal 3.77-5.28 [facility] Work Phone: WBC (Bld) [#/Vol] 6.5 {x10E3/uL} Normal 3.4-10.8 [facility] prehensive Internal Medicine Work Phone: Comment on above: PATIENT WAS FASTINGP ERFORMED BY: RUBEN openPeople Vvbcav3692 [facility] [id number] Information: [id number] WBC (Bld) [#/Vol] 6.5 10*3/uL Normal 3.4-10.8 [facility] Internal Medicine; [facility] Work Phone: Comment on above: PATIENT WAS FASTINGP ERFORMED BY: RUBEN openPeoplehiro TrevinoWtkvcs1029 [facility] [id number] Information: [id number] WBC Auto #/vol (Bld) 6.5 {x10E3/uL} Normal 3.4-10.8 [facility] Work Phone: LIPID PANEL ([id number])Ordered B y: Die Sizer on 10-06-2013 Cholesterol in HDL mass conc 57 mg/dL Normal [facility] Work Phone: Comment on above: According to ATP-III Guidelines, HDL-C >59 mg/dL is considered anegative risk factor for CHD. PATIENT WAS FASTINGP ERFORMED BY: RUBEN openPeople Atkkxx6783 [place] Caro [facility] [id number] Cholesterol in LDL mass conc 89 mg/dL Normal 0-99 [facility] Work Phone: Comment on above: PATIENT WAS FASTINGP ERFORMED BY: RUBEN openPeople Vfhyfk9714 [place] Caro [facility] [id number] Cholesterol in LDL/Cholesterol in HDL mass ratio 1.6 {ratio_units} Normal 0.0-3.2 [facility] Work Phone: Comment on above: PATIENT WAS FASTINGP ERFORMED BY: openPeople Pyjinl5357 [place] Caro [facility] [id number] Cholesterol in VLDL mass conc 15 mg/dL Normal 5-40 [facility] Work Phone: Comment on above: PATIENT WAS FASTINGP ERFORMED BY: RUBEN [facility] [address]hwh[address] [facility] [place] [id number] Cholesterol mass conc 161 mg/dL Normal 100-199 Com prehensive Internal Medicine Work Phone: Comment on above: PATIENT WAS FASTINGP ERFORMED BY: RUBEN [facility] Ciajnb0615 [address] [facility] [place] [id number] Triglyceride mass conc 76 mg/dL Normal 0-149 [facility] Work Phone: Comment on above: PATIENT WAS FASTINGP ERFORMED BY: RUBEN [facility] Bgabkt6876 [address] [facility] [id number] METABOLIC PANEL, COMPREHENSI VE ([id number])Ordered By: Die Sizer on 10-06-2013 Albumin mass conc 4.4 g/dL Normal 3.5-5.5 Compreh ensive Internal Medicine Work Phone: Comment on above: PATIENT WAS FASTINGP ERFORMED BY: RUBEN [facility] Xoqydq7319 [address] [facility] [place] [id number] Albumin/Globulin mass ratio 2.0 {ratio} Normal 1.1-2.5 [facility] Work Phone: Comment on above: PATIENT WAS FASTINGP ERFORMED BY: RUBEN [facility] Lsprha6619 [facility] [place] [id number] ALP [Catalytic activity/Vol] 51 U/L Normal 39-117 [facility]; [facility] Work Phone: Comment on above: PATIENT WAS FASTINGP ERFORMED BY: RUBEN [facility] Voycos0657 [address] [facility] [place] [id number] ALP enzyme act/vol 51 [iU]/L Normal 39-117 Compre [facility] Internal [facility] Work Phone: Comment on above: PATIENT WAS FASTINGP ERFORMED BY: RUBEN [facility] [address]eqvc[address] [facility] [place] [id number] ALT [Catalytic activity/Vol] 8 U/L Normal 0-32 [facility]; [facility] Work Phone: Comment on above: PATIENT WAS FASTINGP ERFORMED BY: RUBEN LabCohiro AmaroPmjkxm4407 [address] RoadDublin [place] [id number] ALT enzyme act/vol 8 [iU]/L Normal 0-32 Compre [facility] Internal Medicine Work Phone: Comment on above: PATIENT WAS FASTINGP ERFORMED BY: RUBEN LabCohiro TrevinoXkrwtd1543 [address] Roadblin [place] [id number] AST [Catalytic activity/Vol] 17 U/L Normal 0-40 [facility]; [facility] Internal Medicine Work Phone: Comment on above: PATIENT WAS FASTINGP ERFORMED BY: RUBEN LabParker TrevinoLjbgim3722 [address] Roadblin [place] [id number] AST enzyme act/vol 17 [iU]/L Normal 0-40 [facility] Internal Medicine Work Phone: Comment on above: PATIENT WAS FASTINGP ERFORMED BY: RUBEN Amaro6370 [address] [facility] [place] [id number] Bilirubin mass conc 0.4 mg/dL Normal 0.0-1.2 Compr ensive Internal Medicine Work Phone: Comment on above: PATIENT WAS FASTINGP ERFORMED BY: RUBEN Trevinolin6370 [address] [facility] [place] [id number] Calcium mass conc 9.7 mg/dL Normal 8.7-10.2 Compreh ensive Internal Medicine Work Phone: Comment on above: PATIENT WAS FASTINGP ERFORMED BY: RUBEN LabParker TrevinoPogxal3533 [address] [facility] [place] [id number] Chloride molar conc 100 mmol/L Normal 97-108 Compr ehensive Internal Medicine Work Phone: Comment on above: PATIENT WAS FASTINGP ERFORMED BY: RUBEN LabCohiro TrevinoQlhpdz9779 [address] Roadblin [place] [id number] CO2 molar conc 27 mmol/L Normal 19-28 Comprehens иван Internal Medicine Work Phone: Comment on above: PATIENT WAS FASTINGP ERFORMED BY: RUBEN [facility] Lqiwxx4224 [facility] [id number] Creatinine mass conc 0.74 mg/dL Normal 0.57-1.00 Comp rehensive Internal Medicine Work Phone: Comment on above: PATIENT WAS FASTINGP ERFORMED BY: LabCo Aekxpo2023 [facility] [id number] GFR/1.73 sq M predicted among blacks CKD-EPI vol rate/area (S/P/Bld) 113 mL/min/1.73 Normal Comprehensiv e Internal Medicine Work Phone: Comment on above: PATIENT WAS FASTINGP ERFORMED BY: LabIns[facility] Hospital6370 [facility] [id number] GFR/1.73 sq M predicted among non-blacks CKD-EPI vol rate/area (S/P/Bld) 98 mL/min/1.73 Normal [facility] Work Phone: Comment on above: PATIENT WAS FASTINGP ERFORMED BY: [facility]Ins[facility] Hospital6370 [facility] [id number] Globulin (S) [Mass/Vol] 2.2 g/dL Normal 1.5-4.5 [facility] Work Phone: Comment on above: PATIENT WAS FASTINGP ERFORMED BY: Lab[facility] Ctunll0800 [facility] [id number] Globulin Calculated mass conc (S) 2.2 g/dL Normal 1.5-4.5 [facility] Work Phone: Glucose mass conc 81 mg/dL Normal 65-99 Compreh ensive Internal Medicine Work Phone: Comment on above: PATIENT WAS FASTINGP ERFORMED BY: LabCo Xbsedm2049 [facility] [id number] Potassium molar conc 4.5 mmol/L Normal 3.5-5.2 Comp [facility] Work Phone: Comment on above: PATIENT WAS FASTINGP ERFORMED BY: Lab[facility] Pcfngf7722 [facility] [id number] Protein mass conc 6.6 g/dL Normal 6.0-8.5 Compreh ensive Internal Medicine Work Phone: Comment on above: PATIENT WAS FASTINGP ERFORMED BY: RUBEN Trevinolin6370 [address] [facility] [id number] Sodium molar conc 138 mmol/L Normal 134-144 Compreh ensive Internal Medicine Work Phone: Comment on above: PATIENT WAS FASTINGP ERFORMED BY: RUBEN Amaro6370 [facility] [id number] Urea nitrogen mass conc 17 mg/dL Normal 6-24 [facility] Work Phone: Comment on above: PATIENT WAS FASTINGP ERFORMED BY: RUBEN Trevinolin6370 [facility] [id number] Urea nitrogen/Creatinine mass ratio 23 mg/mg Normal 9-23 [facility] Work Phone: Comment on above: PATIENT WAS FASTINGP ERFORMED BY: RUBEN Trevinolin6370 [facility] [id number] MICROALBUMINOrdered By: Syst em Senior Accountant on 10-06-2013 Albumin DL <= 20 mg/L mass conc (U) 2.6 ug/mL Normal 0.0-17.0 [facility] Work Phone: Comment on above: PATIENT WAS FASTINGP ERFORMED BY: RUBEN Trevinolin6370 [facility] [id number] Albumin/Creatinine mass ratio (U) 2.8 {mg/g_creat} Normal 0.0-30.0 [facility] Work Phone: Comment on above: PATIENT WAS FASTINGP ERFORMED BY: RUBEN LabManan Yenwka7222 [facility] [id number] Creatinine mass conc (U) 93.5 mg/dL Normal 15.0-278.0 [facility] Work Phone: Comment on above: PATIENT WAS FASTINGP ERFORMED BY: RUBEN Trevinolin6370 [facility] [id number] Microscopic ExaminationOrder ed By: Die Sizer on 10-06-2013 Bacteria LM.HPF #/area (Urine sed) [...] 5 [facility] Work Phone: TSH ([id number])Ordered By: Syste m Senior Accountant on 10-06-2013 Thyrotropin Qn 1.820 {uIU/mL} Normal 0.450-4.500 Compr ehensive Internal Medicine Work Phone: Comment on above: PATIENT WAS FASTINGP ERFORMED BY: RUBEN [facility] Bxyfzx6235 [address] RoadDublin [place] [id number] URINALYSIS, W/ MICRO ([id number]) Ordered By: Die Sizer on 10-06-2013 Appearance Nom (U) Clear Normal Compre hensive Internal Medicine Work Phone: Comment on above: PATIENT WAS FASTINGP ERFORMED BY: RUBEN [facility] Sqfdao7989 [address] RoadDublin [place] [id number] Bilirubin Ql (U) Negative Normal Comprehe nsive Internal Medicine Work Phone: Comment on above: PATIENT WAS FASTINGP ERFORMED BY: CB [facility] Csgovp5717 [address] RoadDublin [place] [id number] Bilirubin Ql (U) Negative Normal Comprehe nsive Internal Medicine; [facility] Work Phone: Comment on above: PATIENT WAS FASTINGP ERFORMED BY: CB [facility] Iyxogh7086 [address] RoadDublin [place] [id number] Color Nom (U) Yellow Normal Comprehensi ve Internal Medicine Work Phone: Comment on above: PATIENT WAS FASTINGP ERFORMED BY: CB [facility] Syfiec3827 [address] RoadDublin [place] [id number] Glucose Ql (U) Negative Normal Comprehens иван Internal Medicine Work Phone: Comment on above: PATIENT WAS FASTINGP ERFORMED BY: RUBEN Amaro6370 [address] RoadDublin [place] [id number] Glucose Ql (U) Negative Normal Comprehens иван Internal Medicine; [facility] Work Phone: Comment on above: PATIENT WAS FASTINGP ERFORMED BY: RUBEN Amaro6370 [address] RoadDublin [place] [id number] Hemoglobin Ql (U) Negative Normal Compreh ensive Internal Medicine Work Phone: Comment on above: PATIENT WAS FASTINGP ERFORMED BY: RUBEN Amaro6370 [address] RoadDublin [place] [id number] Hemoglobin Ql (U) Negative Normal Compreh ensive Internal Medicine; [facility] Work Phone: Comment on above: PATIENT WAS FASTINGP ERFORMED BY: RUBEN Amaro6370 [address] [place] [id number] Hemoglobin Test strip Ql (U) Negative Normal [facility] Work Phone: Ketones Ql (U) Negative Normal Comprehens иван Internal Medicine Work Phone: Comment on above: PATIENT WAS FASTINGP ERFORMED BY: RUBEN Amaro6370 [address] [place] [id number] Ketones Ql (U) Negative Normal Comprehens иван Internal Medicine; [facility] Work Phone: Comment on above: PATIENT WAS FASTINGP ERFORMED BY: RUBEN Trevinolin6370 [address] RoadDublin [place] [id number] Leukocyte esterase Test strip Ql (U) Negative Normal [facility] Work Phone: Comment on above: PATIENT WAS FASTINGP ERFORMED BY: RUBEN Trevinolin6370 [address] RoadDublin [place] [id number] Leukocyte esterase Test strip Ql (U) Negative Normal [facility]; [facility] Work Phone: Comment on above: PATIENT WAS FASTINGP ERFORMED BY: RUBEN Trevinolin6370 [address] [place] [id number] Microscopic observation LM Nom (Urine sed) See below: Normal [facility] Work Phone: Comment on above: PATIENT WAS FASTINGP ERFORMED BY: RUBEN Amaro6370 [address] [place] [id number] Microscopic observation LM Nom (Urine sed) MICRON Normal [facility] Work Phone: Comment on above: Microscopic follows if indicated. PATIENT WAS FASTINGP ERFORMED BY: RUBEN Amaro6370 [address]Dublin [place] [id number] Nitrite Ql (U) Negative Normal Comprehens иван Internal Medicine Work Phone: Comment on above: PATIENT WAS FASTINGP ERFORMED BY: RUBEN [place]70 [address]Dublin [place] [id number] Nitrite Ql (U) Negative Normal Comprehens иван Internal Medicine; [facility] Work Phone: Comment on above: PATIENT WAS FASTINGP ERFORMED BY: RUBEN [place]70 [address]Dublin [place] [id number] Nitrite Test strip Ql (U) Negative Normal [facility] Work Phone: pH (U) 7.0 [pH] Normal 5.0-7.5 [facility] Work Phone: Comment on above: PATIENT WAS FASTINGP ERFORMED BY: RUBEN Amaro6370 [address] [place] [id number] pH Test strip (U) 7.0 [pH] Normal 5.0-7.5 Compreh ensive Internal Medicine Work Phone: Protein Ql (U) Negative Normal Comprehens иван Internal Medicine Work Phone: Comment on above: PATIENT WAS FASTINGP ERFORMED BY: RUBEN Amaro6370 [address] [place] [id number] Protein Ql (U) Negative Normal Comprehens иван Internal Medicine; [facility] Work Phone: Comment on above: PATIENT WAS FASTINGP ERFORMED BY: RUBEN Amaro6370 [address] [place] [id number] Protein Test strip Ql (U) Negative Normal [facility] Work Phone: Specific gravity Relative Density (U) 1.017 1 Normal 1.005-1.030 Comprehensi ve Internal Medicine Work Phone: Comment on above: PATIENT WAS FASTINGP ERFORMED BY: CB [facility] Lzvvxm1111 [address]Dublin [place] [id number] Urobilinogen (U) [Mass/Vol] 0.2 mg/dL Normal 0.0-1.9 [facility]; [facility] Work Phone: Comment on above: PATIENT WAS FASTINGP ERFORMED BY: CB [facility] Oxgvvz4887 [address] RoadDublin [place] [id number] Urobilinogen Test strip mass conc (U) 0.2 mg/dL Normal 0.0-1.9 Comprehensiv e Internal Medicine Work Phone: Comment on above: PATIENT WAS FASTINGP ERFORMED BY: CB [facility] Ojxxnq9886 [address] RoadDublin [place] [id number] Vitamin D Hydroxy (72517)Ord ered By: Die Sizer on 10-06-2013 25-Hydroxyvitamin D2+25-Hydroxyvitamin D3 mass conc 47.8 ng/mL Normal 30.0-100.0 [facility] Internal Medicine Work Phone: Comment on above: Vitamin D deficiency has been defined by the [place] ofMedicine and an Endocrine Society practice guideline as alevel of serum 25-OH vitamin D less than 20 ng/mL (1,2).The Endocrine Society went on to further define vitamin Dinsufficiency as a level between 21 and 29 ng/mL (2).1. IOM ([place] of Medicine). 2010. Dietary reference intakes for calcium and D. [place]: The National Academies Press.2. Krystal MF, Ashtyn NC, Cassandra FLEMING, et al. Evaluation, treatment, and prevention of vitamin D deficiency: an Endocrine Society clinical practice guideline. JCEM. 2010; 96(7):1911-30. PATIENT WAS FASTINGP ERFORMED BY: CB [facility] Vrshbi5564 [address] RoadDublin [place] [id number] HEPATIC FUNCTION PANEL (8007 6)Ordered By: Die Sizer on 01-08-2013 Albumin mass conc 4.5 g/dL Normal 3.5-5.5 [facility] Internal Medicine Work Phone: Comment on above: PATIENT WAS FASTINGP ERFORMED BY: CB [facility] Qzotwe9508 [address] RoadDublin [place] [id number] ALP [Catalytic activity/Vol] 59 U/L Normal 25-150 [facility] Internal Medicine; [facility] Internal Medicine Work Phone: Comment on above: PATIENT WAS FASTINGP ERFORMED BY: CB [facility] Ivxltr2327 [address] RoadDublin [place] [id number] ALP enzyme act/vol 59 [iU]/L Normal 25-150 [facility] Internal Medicine Work Phone: Comment on above: PATIENT WAS FASTINGP ERFORMED BY: CB [facility] Oixhby5517 [address] RoadDublin [place] [id number] ALT [Catalytic activity/Vol] 13 U/L Normal 0-32 [facility] Internal Medicine; [facility] Internal Medicine Work Phone: Comment on above: PATIENT WAS FASTINGP ERFORMED BY: CB [facility] Fwprmg2636 [address] RoadDublin [place] [id number] ALT enzyme act/vol 13 [iU]/L Normal 0-32 [facility] Internal Medicine Work Phone: Comment on above: PATIENT WAS FASTINGP ERFORMED BY: CB [facility] Dfytjv0893 [address] RoadDublin [place] [id number] AST [Catalytic activity/Vol] 20 U/L Normal 0-40 [facility] Internal Medicine; [facility] Internal Medicine Work Phone: Comment on above: PATIENT WAS FASTINGP ERFORMED BY: CB [facility] Pxojqh6693 [address] [place] [id number] AST enzyme act/vol 20 [iU]/L Normal 0-40 [facility] Internal Medicine Work Phone: Comment on above: PATIENT WAS FASTINGP ERFORMED BY: CB [facility] Zvywxh2717 [address]Dublin [place] [id number] Bilirubin mass conc 0.4 mg/dL Normal 0.0-1.2 Compr [facility] Internal Medicine Work Phone: Comment on above: PATIENT WAS FASTINGP ERFORMED BY: RUBEN Angy Amaro6370 [facility] [id number] Bilirubin.direct mass conc 0.12 mg/dL Normal 0.00-0.40 [facility] Work Phone: Comment on above: PATIENT WAS FASTINGP ERFORMED BY: RUBEN Amaro6370 [facility] [id number] Protein mass conc 6.7 g/dL Normal 6.0-8.5 Compreh ensive Internal Medicine Work Phone: Comment on above: PATIENT WAS FASTINGP ERFORMED BY: RUBEN Angy Amaro6370 [facility] [id number] Lipid Panel (30100)Ordered B y: Die Sizer on 01-08-2013 Cholesterol in HDL mass conc 72 mg/dL Normal [facility] Work Phone: Comment on above: According to ATP-III Guidelines, HDL-C >59 mg/dL is considered anegative risk factor for CHD. PATIENT WAS FASTINGP ERFORMED BY: RUBEN Angy Amaro6370 [facility] [id number] Information: [id number] Cholesterol in LDL mass conc 107 mg/dL Abnormal 0-99 [facility] Work Phone: Comment on above: PATIENT WAS FASTINGP ERFORMED BY: RUBEN Lorrie Lrfvmn8083 [facility] [id number] Information: [id number] Cholesterol in LDL/Cholesterol in HDL mass ratio 1.5 {ratio_units} Normal 0.0-3.2 [facility] Work Phone: Comment on above: PATIENT WAS FASTINGP ERFORMED BY: RUBEN Trevinolin6370 [facility] [id number] Information: [id number] Cholesterol in VLDL mass conc 16 mg/dL Normal 5-40 [facility] Work Phone: Comment on above: PATIENT WAS FASTINGP ERFORMED BY: RUBEN [facility] Odtglz8909 [address] [facility] [id number] Information: [id number] Cholesterol mass conc 195 mg/dL Normal 100-199 [facility] prehensive Internal Medicine Work Phone: Comment on above: PATIENT WAS FASTINGP ERFORMED BY: RUBEN [facility] Wxbxkx6255 [address] [facility] [id number] Information: [id number] Triglyceride mass conc 82 mg/dL Normal 0-149 [facility] Work Phone: Comment on above: PATIENT WAS FASTINGP ERFORMED BY: RUBEN [facility] Fayuhg3872 [facility] [id number] Information: [id number] LIVEROrdered By: Racheal garrett on 10-09-2012 Albumin mass conc 4.0 g/dL Normal 3.4-5.0 Compreh ensive Internal Medicine Work Phone: ALT enzyme act/vol 45 U/L Normal 12-78 Compre hensive Internal Medicine Work Phone: AST enzyme act/vol 31 U/L Normal 15-37 [facility] Internal Medicine Work Phone: Protein mass conc 7.7 g/dL Normal 6.4-8.2 Compreh ensive Internal Medicine Work Phone: LIVER 0.40 mg/dL Normal 0.00-1.00 [facility] Work Phone: LIVER 79 U/L Normal 50-136 [facility] Work Phone: LIVER 0.11 mg/dL Normal 0.00-0.30 [facility] Work Phone: LIPID PANEL ([id number])Ordered B y: Die Sizer on 09-25-2012 Cholesterol in HDL mass conc 53 mg/dL Normal [facility] Work Phone: Comment on above: According to ATP-III Guidelines, HDL-C >59 mg/dL is considered anegative risk factor for CHD. PATIENT WAS FASTINGP ERFORMED BY: RUBEN [facility] Egslhi2411 [facility] [id number] Cholesterol in LDL mass conc 88 mg/dL Normal 0-99 [facility] Work Phone: Comment on above: PATIENT WAS FASTINGP ERFORMED BY: RUBEN Angy Amaro6[address] [facility] [id number] Cholesterol in LDL/Cholesterol in HDL mass ratio 1.7 {ratio_units} Normal 0.0-3.2 [facility] Work Phone: Comment on above: PATIENT WAS FASTINGP ERFORMED BY: RUBEN Angy Trevinolin6370 [address] [facility] [id number] Cholesterol in VLDL mass conc 16 mg/dL Normal 5-40 [facility] Work Phone: Comment on above: PATIENT WAS FASTINGP ERFORMED BY: RUBEN Lorriehiro TrevinoFxmybu7267 [facility] [id number] Cholesterol mass conc 157 mg/dL Normal 100-199 [facility] prehensive Internal Medicine Work Phone: Comment on above: PATIENT WAS FASTINGP ERFORMED BY: RUBEN Lorriehiro Enmtfq3519 [facility] [id number] Triglyceride mass conc 82 mg/dL Normal 0-149 [facility] Work Phone: Comment on above: PATIENT WAS FASTINGP ERFORMED BY: RUBEN Lorriehiro TrevinoAgexdq8894 [facility] [id number] METABOLIC PANEL, COMPREHENSI VE ([id number])Ordered By: Die Sizer on 09-25-2012 Albumin mass conc 4.0 g/dL Normal 3.5-5.5 Compreh ensive Internal Medicine Work Phone: Comment on above: PATIENT WAS FASTINGP ERFORMED BY: RUBEN [facility] Oidwtn5170 [address] [facility] [id number] Information: [id number] Albumin/Globulin mass ratio 1.4 {ratio} Normal 1.1-2.5 [facility] Work Phone: Comment on above: PATIENT WAS FASTINGP ERFORMED BY: RUBEN [facility] Qdwdlf3991 [address] [facility] [id number] Information: [id number] ALP [Catalytic activity/Vol] 84 U/L Normal 25-150 [facility]; [facility] Internal Medicine Work Phone: Comment on above: PATIENT WAS FASTINGP ERFORMED BY: LabInsight [facility] Hospital6[address] [facility]in [place] [id number] Information: [id number] ALP enzyme act/vol 84 [iU]/L Normal 25-150 [facility] Internal Medicine Work Phone: Comment on above: PATIENT WAS FASTINGP ERFORMED BY: LabAaron Ville [id number] [address] [facility] [id number] Information: [id number] ALT [Catalytic activity/Vol] 38 U/L Abnormal 0-32 [facility]; [facility] Internal Medicine Work Phone: Comment on above: PATIENT WAS FASTINGP ERFORMED BY: [place] 7348670 [facility] [id number] Information: [id number] ALT enzyme act/vol 38 [iU]/L Abnormal 0-32 [facility] Internal Medicine Work Phone: Comment on above: PATIENT WAS FASTINGP ERFORMED BY: LabIns[facility] Hospital6370 [facility] [id number] Information: [id number] AST [Catalytic activity/Vol] 51 U/L Abnormal 0-40 [facility] Internal Medicine; [facility] Internal Medicine Work Phone: Comment on above: PATIENT WAS FASTINGP ERFORMED BY: [facility]Ins[facility] Hospital6370 [facility] [id number] Information: [id number] AST enzyme act/vol 51 [iU]/L Abnormal 0-40 [facility] Internal Medicine Work Phone: Comment on above: PATIENT WAS FASTINGP ERFORMED BY: LabIns[facility] Hospital6370 [address] [facility] [id number] Information: [id number] Bilirubin mass conc 0.3 mg/dL Normal 0.0-1.2 Compr ensive Internal Medicine Work Phone: Comment on above: PATIENT WAS FASTINGP ERFORMED BY: RUBEN LabCohiro AmaroZmtvxj3980 [address] [facility] [id number] Information: [id number] Calcium mass conc 9.2 mg/dL Normal 8.7-10.2 Compreh ensive Internal Medicine Work Phone: Comment on above: PATIENT WAS FASTINGP ERFORMED BY: CB [facility] Auilqp4617 [place] [id number] Information: [id number] Chloride molar conc 100 mmol/L Normal 97-108 Compr ensive Internal Medicine Work Phone: Comment on above: PATIENT WAS FASTINGP ERFORMED BY: RUBEN [facility] Tuflfe8569 [facility] [id number] Information: [id number] CO2 molar conc 25 mmol/L Normal 20-32 Comprehens иван Internal Medicine Work Phone: Comment on above: PATIENT WAS FASTINGP ERFORMED BY: [facility] Rrqaaw5055 [facility] [id number] Information: [id number] Creatinine mass conc 0.72 mg/dL Normal 0.57-1.00 [facility] Work Phone: Comment on above: PATIENT WAS FASTINGP ERFORMED BY: [facility] Gyrrnk0748 [facility] [id number] Information: [id number] GFR/1.73 sq M predicted among blacks CKD-EPI vol rate/area (S/P/Bld) 118 mL/min/1.73 Normal Comprehensiv e Internal Medicine Work Phone: Comment on above: PATIENT WAS FASTINGP ERFORMED BY: CB [facility] Asuzzp0620 [place] [id number] Information: [id number] GFR/1.73 sq M predicted among non-blacks CKD-EPI vol rate/area (S/P/Bld) 102 mL/min/1.73 Normal [facility] Work Phone: Comment on above: PATIENT WAS FASTINGP ERFORMED BY: [place] 7348670 [facility] [id number] Information: [id number] Globulin (S) [Mass/Vol] 2.8 g/dL Normal 1.5-4.5 [facility] Work Phone: Comment on above: PATIENT WAS FASTINGP ERFORMED BY: [address] [id number] Information: [id number] Globulin Calculated mass conc (S) 2.8 g/dL Normal 1.5-4.5 [facility] Work Phone: Glucose mass conc 92 mg/dL Normal 65-99 Compreh ensive Internal Medicine Work Phone: Comment on above: PATIENT WAS FASTINGP ERFORMED BY: [place] 7348670 [facility] [id number] Information: [id number] Potassium molar conc 4.2 mmol/L Normal 3.5-5.2 Comp rehensive Internal Medicine Work Phone: Comment on above: PATIENT WAS FASTINGP ERFORMED BY: [place] 7348670 [facility] [id number] Information: [id number] Protein mass conc 6.8 g/dL Normal 6.0-8.5 Compreh ensive Internal Medicine Work Phone: Comment on above: PATIENT WAS FASTINGP ERFORMED BY: [place] 7348670 [facility] [id number] Information: [id number],[id number] Sodium molar conc 140 mmol/L Normal 134-144 Compreh ensive Internal Medicine Work Phone: Comment on above: PATIENT WAS FASTINGP ERFORMED BY: [place] 7348670 [facility] [id number] Information: [id number] Urea nitrogen mass conc 12 mg/dL Normal 6-24 [facility] Work Phone: Comment on above: PATIENT WAS FASTINGP ERFORMED BY: RUBEN OliverCohiro AmaroRpnofp0282 [address]blin [place] [id number] Information: [id number] Urea nitrogen/Creatinine mass ratio 17 mg/mg Normal 9-23 [facility] Work Phone: Comment on above: PATIENT WAS FASTINGP ERFORMED BY: RUBEN [facility] Kahjhu[address] [facility] [place] [id number] Information: [id number] TSH (47620)Ordered By: Borise m Senior Accountant on 09-25-2012 Thyrotropin Qn 1.270 {uIU/mL} Normal 0.450-4.500 [facility] Work Phone: Comment on above: PATIENT WAS FASTINGP ERFORMED BY: RUBEN [facility] Pyjwtl0693 [place] [place] [id number] Vitamin D Hydroxy (78828)Ord ered By: Die Sizer on 09-25-2012 25-Hydroxyvitamin D2+25-Hydroxyvitamin D3 mass conc 43.2 ng/mL Normal 30.0-100.0 [facility] Work Phone: Comment on above: Vitamin D deficiency has been defined by the [place] ofMedicine and an Endocrine Society practice guideline as alevel of serum 25-OH vitamin D less than 20 ng/mL (1,2).The Endocrine Society went on to further define vitamin Dinsufficiency as a level between 21 and 29 ng/mL (2).1. IOM ([place] of Medicine). 2010. Dietary reference intakes for calcium and D. [place]: The National Academies Press.2. Krystal MF, Ashtyn NC, Cassandra FLEMING, et al. Evaluation, treatment, and prevention of vitamin D deficiency: an Endocrine Society clinical practice guideline. JCEM. 2010; 96(7):1911-30. PATIENT WAS FASTINGP ERFORMED BY: [facility] Yvcldr[address] [facility] [place] [id number] Lab Report: BMPon 07-01-2012 Calcium 9.1 mg/dL Normal 8.5-10.1 [facility] Surgical [facility] Work Phone: Chloride 101 mmol/L Normal 98-107 [facility] Surgical [facility] Work Phone: CO2 6 mmol/L Normal 5-15 [facility] Surgical [facility] Work Phone: Creatinine 0.8 mg/dL Normal 0.6-1.0 [facility] Surgical [facility] Work Phone: Glucose mass conc 90 mg/dL Normal 70-110 [facility] Elizabeth gical [facility] Work Phone: Potassium molar conc 3.8 mmol/L Normal 3.5-5.1 [facility] Surgical [facility] Work Phone: Sodium 138 mmol/L Normal 136-145 [facility] Surgical [facility] Work Phone: Urea nitrogen 19 mg/dL High 7-18 [facility] Surgica l [facility] Work Phone: Lab Report: CBCon 07-01-2012 Erythrocytes (RBC) 3.96 10*6/uL Low 4.2-5.4 [facility] Surgical [facility] Work Phone: Hematocrit (HCT) 38.2 % Normal 37-47 [facility] Surg ical [facility] Work Phone: Hemoglobin mass conc (Bld) 12.2 g/dL Normal 12.0-15.0 [facility] Work Phone: Platelets 321 10*3/mm3 Normal 150-450 [facility] Work Phone: WBC (Leukocytes) 7.5 10*3/uL Normal 4.4-11.0 [facility] Work Phone: Lab Report: PTon 07-01-2012 INR Coag RelTime (PPP) 1.0 {INR} Normal [facility] Surgical [facility] Work Phone: PTP 12.4 SECONDS Normal 11.9-14.4 [facility] Surgical [facility] Work Phone: Lab Report: PTTon 07-01-2012 aPTT 29.7 s Normal 24.1-36.2 [facility] Surgical [facility] Work Phone: Replaced Document: Midmark E CG Observationson 06-17-2012 EKG QRS axis 52 deg Invalid Interpretation Code [facility] Surgical [employer] Work Phone: Interpretation Sinus Rhythm -Short IA syndrome Evelia = 118BORDERLINE RHYTHM Invalid Interpretation Code [facility] [employer] Work Phone: P [place] 44 deg Invalid Interpretation Code [facility] [employer] Work Phone: IA Interval 118 ms Invalid Interpretation Code [facility] [employer] Work Phone: Pulse (Heart Rate) 81 /min Invalid Interpretation Code [facility] [employer] Work Phone: Pulse (Heart Rate) 386 ms Invalid Interpretation Code [facility] [employer] Work Phone: QRS Duration 94 ms Invalid Interpretation Code [facility] [employer] Work Phone: QT Interval new path ms Invalid Interpretation Code [facility] [employer] Work Phone: T [place] 37 deg Invalid Interpretation Code [facility] [employer] Work Phone: MYOCARD PERF STRESS/REST MUL TOrdered By: Die Sizer on 05-26-2012 MYOCARD PERF STRESS/REST MULT See [...] MD Systemic Lupus Profile (8623 5)Ordered By: Die Sizer on 05-26-2012 Chromatin Ab Qn <0.2 Normal 0.0-0.9 [facility] Internal Medicine Work Phone: Comment on above: PATIENT NOT FASTINGP ERFORMED BY: CB [facility] Xpqepw5733 GlobalMedia GroupCritical access hospital [id number] Information: [id number] DNA double strand Ab Qn (S) 1 {IU/mL} Normal 0-9 [facility] Work Phone: Comment on above: Negative <5 Equivoca l 5 - 9 Positive >9 PATIENT NOT FASTINGP ERFORMED BY: velingo [facility] Mzahhk6535 [facility]ExchangeUofL [facility] [id number] Information: [id number] DNA double strand Ab Qn (S) 1 [IU]/mL Normal 0-9 [facility]; [facility] Work Phone: Comment on above: Negative <5 Equivoca l 5 - 9 Positive >9 PATIENT NOT FASTINGP ERFORMED BY: RUBEN Amaro6370 [address] [facility] [place] [id number] Information: [id number] Rheumatoid factor Qn 11.4 {IU/mL} Normal 0.0-13.9 [facility] Work Phone: Comment on above: PATIENT NOT FASTINGP ERFORMED BY: RUBEN [facility] Unvgya0244 [place] [id number] Information: [id number] Rheumatoid factor Qn 11.4 [IU]/mL Normal 0.0-13.9 [facility]; [facility] Work Phone: Comment on above: PATIENT NOT FASTINGP ERFORMED BY: RUBEN [facility] Ndakbe6648 [place] [facility] [id number] Information: [id number] Ribonucleoprotein extractable nuclear Ab Qn (S) 1.4 {AI} Abnormal 0.0-0.9 [facility] Work Phone: Comment on above: PATIENT NOT FASTINGP ERFORMED BY: RUBEN [employer] Toxgyz5482 [facility] [id number] Information: [id number] Sjogrens syndrome-A extractable nuclear Ab Qn (S) <0.2 Normal 0.0-0.9 [facility] Work Phone: Comment on above: PATIENT NOT FASTINGP ERFORMED BY: CB [facility] Bckyyq1563 [place] [facility] [place] [id number] Information: [id number] Sjogrens syndrome-B extractable nuclear Ab Qn (S) <0.2 Normal 0.0-0.9 [facility] Work Phone: Comment on above: PATIENT NOT FASTINGP ERFORMED BY: RUBEN [facility] Zogixv0620 [facility] [id number] Information: [id number] Saavedra extractable nuclear Ab Qn (S) <0.2 Normal 0.0-0.9 [facility] Work Phone: Comment on above: PATIENT NOT FASTINGP ERFORMED BY: RUBEN [facility] Lselwc4687 [facility] [id number] Information: [id number] ELVA (ANTINUCLEAR ANTIBODY) ( 48889)Ordered By: Die Sizer on 05-22-2012 Nuclear Ab Ql (S) Positive Abnormal Compreh ensive Internal Medicine Work Phone: Comment on above: PATIENT NOT FASTINGP ERFORMED BY: CB [facility] Ovbnsj8625 [place] [facility] [id number] Nuclear Ab Ql (S) Positive Abnormal Compreh ensive Internal Medicine; [facility] Work Phone: Comment on above: PATIENT NOT FASTINGP ERFORMED BY: CB [facility] Gwqewm2224 [facility] [id number] C-REACTIVE PROTEIN (20690)Or dered By: Die Sizer on 05-22-2012 CRP mass conc 2.6 mg/L Normal 0.0-4.9 Comprehensi Internal Medicine Work Phone: Comment on above: PATIENT NOT FASTINGP ERFORMED BY: CB [facility] Xirgda9241 [facility] [id number] CALCIFIDIOL (62685) VIT D 25 Ordered By: Die Sizer on 05-22-2012 25-Hydroxyvitamin D2+25-Hydroxyvitamin D3 mass conc 36.6 ng/mL Normal 30.0-100.0 [facility] Work Phone: Comment on above: Vitamin D deficiency has been defined by the [place] ofMedicine and an Endocrine Society practice guideline as alevel of serum 25-OH vitamin D less than 20 ng/mL (1,2).The Endocrine Society went on to further define vitamin Dinsufficiency as a level between 21 and 29 ng/mL (2).1. IOM ([place] of Medicine). 2010. Dietary reference intakes for calcium and D. [place]: The National Academies Press.2. Krystal MF, Ashtyn NC, Cassandra FLEMING, et al. Evaluation, treatment, and prevention of vitamin D deficiency: an Endocrine Society clinical practice guideline. JCEM. 2010; 96(7):1911-30. PATIENT NOT FASTINGP ERFORMED BY: [facility] Edcqmr8576 [address] RoadDublin [place] [id number] CBC (AUTO) (00241)Ordered By : Die Sizer on 05-22-2012 Erythrocyte distribution width (RBC) [Ratio] 13.4 % Normal 12.3-15.4 [facility] Work Phone: Comment on above: PATIENT NOT FASTINGP ERFORMED BY: [facility] Sfbgos4219 [address] RoadDublin [place] [id number] Erythrocyte distribution width Auto Ratio (RBC) 13.4 % Normal 12.3-15.4 [facility] Work Phone: Hematocrit (Bld) [Volume fraction] 39.2 % Normal 34.0-46.6 [facility] Internal Medicine Work Phone: Comment on above: PATIENT NOT FASTINGP ERFORMED BY: [facility] Rczckt3299 [address] [facility]Swain [facility] Hospitalin [place] [id number] Hematocrit Auto Volume Fraction (Bld) 39.2 % Normal 34.0-46.6 [facility] Internal Medicine Work Phone: Hemoglobin mass conc (Bld) 13.0 g/dL Normal 11.1-15.9 [facility] Internal Medicine Work Phone: Comment on above: PATIENT NOT FASTINGP ERFORMED BY: [facility] Lmbgux0787 [address] [place] [id number] MCH (RBC) [Entitic mass] 30.9 pg Normal 26.6-33.0 [facility] Work Phone: Comment on above: PATIENT NOT FASTINGP ERFORMED BY: [facility] Twyffe2925 [address] RoadDublin [place] [id number] MCH Auto Entitic mass (RBC) 30.9 pg Normal 26.6-33.0 [facility] Internal Medicine Work Phone: MCHC (RBC) [Mass/Vol] 33.2 g/dL Normal 31.5-35.7 [facility] Internal Medicine Work Phone: Comment on above: PATIENT NOT FASTINGP ERFORMED BY: CB [facility] Xbvaad1200 [address] RoadDublin [place] [id number] MCHC Auto mass conc (RBC) 33.2 g/dL Normal 31.5-35.7 [facility] Internal Medicine Work Phone: MCV (RBC) [Entitic vol] 93 fL Normal 79-97 [facility] Work Phone: Comment on above: PATIENT NOT FASTINGP ERFORMED BY: CB [facility] Tasssg9301 [address] RoadDublin [place] [id number] MCV Auto Entitic volume (RBC) 93 fL Normal 79-97 [facility] Internal Medicine Work Phone: Platelets (Bld) [#/Vol] 370 {x10E3/uL} Normal 140-415 [facility] Work Phone: Comment on above: PATIENT NOT FASTINGP ERFORMED BY: CB [facility] Dgxsnw2703 [address] RoadDublin [place] [id number] Platelets (Bld) [#/Vol] 370 10*3/uL Normal 140-415 [facility]; [facility] Work Phone: Comment on above: PATIENT NOT FASTINGP ERFORMED BY: CB [facility] Osbjmv7272 [address] RoadDublin [place] [id number] Platelets Auto #/vol (Bld) 370 {x10E3/uL} Normal 140-415 [facility] Work Phone: RBC (Bld) [#/Vol] 4.21 {x10E6/uL} Normal 3.77-5.28 [facility] Internal Medicine Work Phone: Comment on above: PATIENT NOT FASTINGP ERFORMED BY: CB [facility] Cxkerl3535 [address] RoadDublin [place] [id number] RBC (Bld) [#/Vol] 4.21 10*6/uL Normal 3.77-5.28 [facility]; [facility] Work Phone: Comment on above: PATIENT NOT FASTINGP ERFORMED BY: RUBEN [facility] Gytvlu4896 [address] RoadSwain Community Hospitalin [place] [id number] RBC Auto #/vol (Bld) 4.21 {x10E6/uL} Normal 3.77-5.28 [facility] Work Phone: WBC (Bld) [#/Vol] 6.7 {x10E3/uL} Normal 4.0-10.5 [facility] prehensive Internal Medicine Work Phone: Comment on above: PATIENT NOT FASTINGP ERFORMED BY: RUBEN [facility] Kexzrd6793 [address] [facility] [place] [id number] WBC (Bld) [#/Vol] 6.7 10*3/uL Normal 4.0-10.5 [facility] Internal Medicine; [facility] Work Phone: Comment on above: PATIENT NOT FASTINGP ERFORMED BY: RUBEN [facility] Edeloz1958 [address] [facility] [id number] WBC Auto #/vol (Bld) 6.7 {x10E3/uL} Normal 4.0-10.5 [facility] Work Phone: Clinical Lists Update: Prelo telepathist 05-22-2012 Thyroid stimulating hormone (TSH) 1.48 u[iU]/mL Invalid Interpretation Code [facility] Work Phone: Alanine aminotransferase (ALT) 18 U/L Normal 0-32 [facility] Work Phone: Comment on above: Please note refere nce interval change PATIENT NOT FASTINGP ERFORMED BY: RUBEN [facility] Rwmtze5577 [address] [facility] [id number] Information: [id number] Alkaline phosphatase (ALP) 49 U/L Normal 25-150 [facility] Work Phone: Comment on above: PATIENT NOT FASTINGP ERFORMED BY: RUBEN [facility] Rpbrux8890 [address] [facility] [id number] Information: [id number] Aspartate aminotransferase (AST) 25 U/L Normal 0-40 [facility] Work Phone: Comment on above: PATIENT NOT FASTINGP ERFORMED BY: RUBEN [facility] Pwdyhe4375 [address] [facility] [place] [id number] Information: 005349,[id number] Bilirubin (total) 0.4 mg/dL Normal 0.0-1.2 [facility] Elizabeth gical [facility] Work Phone: Comment on above: PATIENT NOT FASTINGP ERFORMED BY: CB [facility] Uaoyrv2488 [place] [facility] [id number] Information: [id number] CO2 24 mmol/L Normal 20-32 [facility] Work Phone: Comment on above: PATIENT NOT FASTINGP ERFORMED BY: RUBEN [facility] Qkhqjh6407 [address] [facility] [id number] Information: [id number] DDIMQOrdered By: System Berkley garrett on 05-22-2012 DDIMQ <0.22 Normal 0.22-0.48 [facility] Work Phone: Comment on above: NORMAL D-Dimer level indicates no DVT or PE. Folate (06882)Ordered By: SpineGuard stem Senior Accountant on 05-22-2012 Folate mass conc ng/mL Normal Comprehe nsive Internal Medicine Work Phone: Comment on above: A serum folate lucius ntration of less than 3.1 ng/mL isconsidered to represent clinical deficiency. PATIENT NOT FASTINGP ERFORMED BY: CB [facility] Xryrva7807 [facility] [id number] METABOLIC PANEL, COMPREHENSI VE (50521)Ordered By: Die Sizer on 05-22-2012 Albumin mass conc 4.7 g/dL Normal 3.5-5.5 Compreh ensive Internal Medicine Work Phone: Comment on above: PATIENT NOT FASTINGP ERFORMED BY: CB [facility] Tudxto2984 [place] [facility] [id number] Information: [id number] Albumin/Globulin mass ratio 1.7 {ratio} Normal 1.1-2.5 [facility] Work Phone: Comment on above: PATIENT NOT FASTINGP ERFORMED BY: RUBEN Amaro6370 [facility] [id number] Information: [id number] ALP enzyme act/vol 49 [iU]/L Normal 25-150 [facility] Internal Medicine Work Phone: Comment on above: PATIENT NOT FASTINGP ERFORMED BY: RUBEN OliverCohiro TrevinoUkqqhp8401 [facility] [id number] Information: [id number] ALT enzyme act/vol 18 [iU]/L Normal 0-32 [facility] Work Phone: Comment on above: Please note refere nce interval change PATIENT NOT FASTINGP ERFORMED BY: RUBEN Trevinolin6370 [facility] [id number] Information: [id number],[id number] AST enzyme act/vol 25 [iU]/L Normal 0-40 [facility] Internal Medicine Work Phone: Comment on above: PATIENT NOT FASTINGP ERFORMED BY: RUBEN Trevinolin6370 [facility] [id number] Information: [id number] Calcium mass conc 9.8 mg/dL Normal 8.7-10.2 [facility] Internal Medicine Work Phone: Comment on above: PATIENT NOT FASTINGP ERFORMED BY: RUBEN LabManan Mqqtgi7524 [facility] [id number] Information: [id number],[id number] Chloride molar conc 103 mmol/L Normal 97-108 [facility] Work Phone: Comment on above: PATIENT NOT FASTINGP ERFORMED BY: RUBEN Trevinolin6370 [facility] [id number] Information: 621231,[id number] Creatinine mass conc 0.87 mg/dL Normal 0.57-1.00 Comp [facility] Internal Medicine Work Phone: Comment on above: PATIENT NOT FASTINGP ERFORMED BY: RUBEN [facility] Ftnvhh6720 [address] [facility] [id number] Information: 036307,S03374 GFR/1.73 sq M predicted among blacks CKD-EPI vol rate/area (S/P/Bld) 94 mL/min/1.73 Normal Comprehensiv e Internal Medicine Work Phone: Comment on above: PATIENT NOT FASTINGP ERFORMED BY: CB [facility] Rlbaae1835 [address] [facility] [id number] Information: [id number] GFR/1.73 sq M predicted among non-blacks CKD-EPI vol rate/area (S/P/Bld) 82 mL/min/1.73 Normal [facility] Work Phone: Comment on above: PATIENT NOT FASTINGP ERFORMED BY: RUBEN [facility] Voyezu4767 [facility] [id number] Information: 850665,U64732 Globulin (S) [Mass/Vol] 2.7 g/dL Normal 1.5-4.5 [facility] Work Phone: Comment on above: PATIENT NOT FASTINGP ERFORMED BY: RUBEN [facility] Ajotfs3243 [facility] [id number] Information: 692363,[id number] Globulin Calculated mass conc (S) 2.7 g/dL Normal 1.5-4.5 [facility] Work Phone: Glucose mass conc 88 mg/dL Normal 65-99 Compreh ensive Internal Medicine Work Phone: Comment on above: PATIENT NOT FASTINGP ERFORMED BY: CB [facility] Jxxksf1995 [address] [facility] [id number] Information: 756521,[id number] Potassium molar conc 4.4 mmol/L Normal 3.5-5.2 Comp rehensive Internal Medicine Work Phone: Comment on above: PATIENT NOT FASTINGP ERFORMED BY: CB [facility] Zpwqst9191 [address] [facility] [id number] Information: [id number],[id number] Protein mass conc 7.4 g/dL Normal 6.0-8.5 Compreh ensive Internal Medicine Work Phone: Comment on above: PATIENT NOT FASTINGP ERFORMED BY: RUBEN [facility] Ozliga5996 [address] RoadDublin [place] [id number] Information: [id number],[id number] Sodium molar conc 143 mmol/L Normal 134-144 Compreh ensive Internal Medicine Work Phone: Comment on above: PATIENT NOT FASTINGP ERFORMED BY: CB [facility] Yqytrz3128 [address] RoadDublin [place] [id number] Information: [id number] Urea nitrogen mass conc 16 mg/dL Normal 6-24 [facility] Work Phone: Comment on above: PATIENT NOT FASTINGP ERFORMED BY: CB [facility] Lxrnnm3361 [address] RoadDublin [place] [id number] Information: [id number] Urea nitrogen/Creatinine mass ratio 18 mg/mg Normal 9-23 [facility] Work Phone: Comment on above: PATIENT NOT FASTINGP ERFORMED BY: RUBEN [facility] Asbjfy0631 [address] RoadDublin [place] [id number] Information: 556720,[id number] RHEUMATOID FACTOR-QUANT (866 36)Ordered By: Die Sizer on 05-22-2012 Rheumatoid factor Qn 10.5 {IU/mL} Normal 0.0-13.9 [facility] Work Phone: Comment on above: PATIENT NOT FASTINGP ERFORMED BY: CB [facility] Vwsepr9896 [address] RoadDublin [place] [id number] Rheumatoid factor Qn 10.5 [IU]/mL Normal 0.0-13.9 Co mprehensive Internal Medicine; [facility] Work Phone: Comment on above: PATIENT NOT FASTINGP ERFORMED BY: CB [facility] Rhdhxc0813 [address] RoadDublin [place] [id number] SED RATE ERYTHROCYTE ([id number]) Ordered By: Die Sizer on 05-22-2012 ESR Velocity (Bld) 2 mm/h Normal 0-32 [facility] Internal Medicine Work Phone: Comment on above: PATIENT NOT FASTINGP ERFORMED BY: RUBEN [employer] Ppjneu6164 GlobalMedia GroupCritical access hospital [id number] TSH ([id number])Ordered By: Syste m Senior Accountant on 05-22-2012 Thyrotropin Qn 1.480 {uIU/mL} Normal 0.450-4.500 Compr [facility] Internal Medicine Work Phone: Comment on above: PATIENT NOT FASTINGP ERFORMED BY: RUBEN [facility] Ntnctn7217 [address] [facility] Toy CompanyUofL Health [facility] [id number] VITAMIN B-12 (CYANOCOBALAMIN ) (24894)Ordered By: Die Sizer on 05-22-2012 Cobalamin (Vitamin B12) mass conc 613 pg/mL Normal 211-946 [facility] Work Phone: Comment on above: PATIENT NOT FASTINGP ERFORMED BY: RUBEN [facility] Lpjnph2551 [address] [facility] [id number] Vital Signs Date Time Vital Sign Value Performing Clinician Facility 09-08-2024 08:12-0500 Body height 167.[address] Gloria Bills DO Work Phone: [facility] 09-08-2024 08:05-0500 Body mass index (BMI) [Ratio] 29.3 kg/m2 Dr. Gloria Bills DO Work Phone: [facility] 09-08-2024 08:05-0500 Body weight 82.[address] Gloria Bills DO Work Phone: [facility] 09-08-2024 08:05-0500 Diastolic blood pressure 76 mm[Hg] Dr. Gloria Bills DO Work Phone: [facility] 09-08-2024 08:05-0500 Systolic blood pressure 120 mm[Hg] Dr. Gloria Bills DO Work Phone: [facility] 06-27-2024 13:52-0500 Body mass index (BMI) [Ratio] 29.2 kg/m2 Dr. Gloria Bills DO Work Phone: [facility] 06-27-2024 13:52-0500 Body temperature 99.2 [degF] Dr. Gloria Bills DO Work Phone: [facility] 06-27-2024 13:52-0500 Body weight 82.[address] Gloria Bills DO Work Phone: [facility] 06-27-2024 13:52-0500 Diastolic blood pressure 72 mm[Hg] Dr. Gloria Bills DO Work Phone: [facility] 06-27-2024 13:52-0500 Heart rate 63 /min Dr. Gloria Bills DO Work Phone: [facility] 06-27-2024 13:52-0500 Respiratory rate 16 /min Dr. Gloria Bills DO Work Phone: [facility] 06-27-2024 13:52-0500 SaO2% (BldA) [Mass fraction] 98 % Dr. Gloria Bills DO Work Phone: [facility] 06-27-2024 13:52-0500 Systolic blood pressure 128 mm[Hg] Dr. Gloria Bills DO Work Phone: [facility] 09-02-2023 14:30-0500 Body height 167.[address] Gloria Bills Work Phone: [facility] 09-02-2023 14:30-0500 Diastolic blood pressure 90 mm[Hg] Dr. Gloria Bills Work Phone: [facility] 09-02-2023 14:30-0500 Systolic blood pressure 138 mm[Hg] Dr. Gloria Bills Work Phone: [facility] 09-02-2023 14:18-0500 Body mass index (BMI) [Ratio] 30.4 kg/m2 Dr. Golria Bills Work Phone: [facility] 09-02-2023 14:18-0500 Body weight 85.[address] Gloria Bills Work Phone: [facility] 04-24-2023 07:07-0400 Body height 168.28 cm [...] 04-24-2023 07:07-0400 Body temperature 97.9 [degF] ANDREA Machado LPN Comprehensiv e Internal Medicine; [...] Standard 12-25-2022 08:26-0400 Body height 167.64 cm [facility] 11-26-2022 08:07-0400 Body height 168.28 cm Samantha Slarb PHOTO EQUIPMENT TECHNICIAN [facility] Work Phone: 11-26-2022 08:07-0400 Body mass index (BMI) [Ratio] 29.63 kg/m2 Samantha Slarb PHOTO EQUIPMENT TECHNICIAN [facility]; [facility] Work Phone: 11-26-2022 08:07-0400 Body surface area Derived from formula 1.94 m2 Samantha Slarb PHOTO EQUIPMENT TECHNICIAN [facility]; [facility] Work Phone: 11-26-2022 08:07-0400 Body temperature 97.4 [degF] Samantha Slarb PHOTO EQUIPMENT TECHNICIAN [facility]; [facility] Work Phone: Comment on above: Method: Temporal 11-26-2022 08:07-0400 Body weight 83.92 kg Samantha Slarb PHOTO EQUIPMENT TECHNICIAN [facility]; [facility] Work Phone: 11-26-2022 08:07-0400 Diastolic blood pressure 72 mm[Hg] Samantha Slarb PHOTO EQUIPMENT TECHNICIAN [facility]; [facility] Work Phone: Comment on above: Patient Position: Sitting; Cuff Location : Left Arm; Cuff Size: Standard 11-26-2022 08:07-0400 Heart rate 71 /min Samantha Slarb PHOTO EQUIPMENT TECHNICIAN [facility]; [facility] Work Phone: Comment on above: Pattern: Regular 11-26-2022 08:07-0400 Respiratory rate 17 /min Samantha Slarb PHOTO EQUIPMENT TECHNICIAN [facility]; [facility] Work Phone: Comment on above: Pattern: Unlabored 11-26-2022 08:07-0400 SaO2% (BldA) [Mass fraction] 96 % Samantha Slarb PHOTO EQUIPMENT TECHNICIAN [facility]; [facility] Work Phone: Comment on above: Room air 11-26-2022 08:07-0400 Systolic blood pressure 116 mm[Hg] Samantha Slarb PHOTO EQUIPMENT TECHNICIAN [facility]; [facility] Work Phone: Comment on above: Patient Position: Sitting; Cuff Location : Left Arm; Cuff Size: Standard 10-25-2022 07:12-0400 Body height 168.28 cm Samantha Ayesharb PHOTO EQUIPMENT TECHNICIAN [facility]; [facility] Work Phone: 10-25-2022 07:12-0400 Body mass index (BMI) [Ratio] 29.47 kg/m2 Samantha Slarb PHOTO EQUIPMENT TECHNICIAN [facility]; [facility] Work Phone: 10-25-2022 07:120400 Body surface area Derived from formula 1.94 m2 Samantha Slarb PHOTO EQUIPMENT TECHNICIAN [facility]; [facility] Work Phone: 10-25-2022 07:12-0400 Body temperature 97.1 [degF] Samantha Slarb PHOTO EQUIPMENT TECHNICIAN [facility]; [facility] Work Phone: Comment on above: Method: Temporal 10-25-2022 07:12-0400 Body weight 83.46 kg Samantha Hodgerb PHOTO EQUIPMENT TECHNICIAN [facility]; [facility] Work Phone: 10-25-2022 07:12-0400 Diastolic blood pressure 76 mm[Hg] Samantha Slarb PHOTO EQUIPMENT TECHNICIAN [facility]; [facility] Work Phone: Comment on above: Patient Position: Sitting; Cuff Location : Left Arm; Cuff Size: Standard 10-25-2022 07:12-0400 Heart rate 71 /min Samantha Slarb PHOTO EQUIPMENT TECHNICIAN [facility]; [facility] Work Phone: Comment on above: Pattern: Regular 10-25-2022 07:12-0400 Respiratory rate 16 /min Samantha Slarb PHOTO EQUIPMENT TECHNICIAN [facility]; [facility] Work Phone: Comment on above: Pattern: Unlabored 10-25-2022 07:12-0400 SaO2% (BldA) [Mass fraction] 98 % Samantha Slarb PHOTO EQUIPMENT TECHNICIAN [facility]; [facility] Work Phone: Comment on above: Room air 10-25-2022 07:12-0400 Systolic blood pressure 118 mm[Hg] Samantha Causey PHOTO EQUIPMENT TECHNICIAN [facility]; [facility] Work Phone: Comment on above: Patient Position: Sitting; Cuff Location : Left Arm; Cuff Size: Standard 01-17-2022 07:09-0400 [facility] Work Phone: 01-17-2022 07:09-0400 Body mass index (BMI) [Ratio] 28.99 kg/m2 [facility]; [facility] Work Phone: 01-17-2022 07:090400 Body surface area Derived from formula 1.92 m2 [facility]; [facility] Work Phone: 01-17-2022 07:09-0400 Body weight 82.1 kg [facility]; [facility] Work Phone: 01-17-2022 07:09-0400 Diastolic blood pressure 80 mm[Hg] [facility]; [facility] Work Phone: Comment on above: Patient Position: Sitting; Cuff Location : Left Arm; Cuff Size: Standard 01-17-2022 07:09-0400 Heart rate 83 /min [facility]; [facility] Work Phone: Comment on above: Pattern: Regular 01-17-2022 07:09-0400 Respiratory rate 16 /min [facility] Comprehensiv e [facility]; [facility] Work Phone: Comment on above: Pattern: Unlabored 01-17-2022 07:09-0400 SaO2% (BldA) [Mass fraction] 98 % [facility]; [facility] Work Phone: Comment on above: Room air 01-17-2022 07:09-0400 Systolic blood pressure 124 mm[facility]Hg] [facility]; [facility] Work Phone: Comment on above: Patient Position: Sitting; Cuff Location : Left Arm; Cuff Size: Standard 07-26-2021 06:59-0500 Body height 168.28 cm Kady Garsia [facility] Internal Medicine; [facility] Work Phone: Comment on above: virtual, reported by pt 07-26-2021 06:59-0500 Body mass index (BMI) [Ratio] 28.11 kg/m2 [facility]; [facility] Work Phone: Comment on above: virtual, reported by pt 07-26-2021 06:59-0500 Body surface area Derived from formula 1.9 m2 Kady [facility]; [facility] Work Phone: Comment on above: virtual, reported by pt 07-26-2021 06:59-0500 Body temperature 97.4 [degF] Kadytiffanie Garsia [facility] Work Phone: Comment on above: Method: Temporal virtual, reported by pt 07-26-2021 06:59-0500 Body weight 79.61 kg Kadytiffanie Garsia [facility]; [facility] Work Phone: Comment on above: virtual, reported by pt 07-26-2021 06:59-0500 Heart rate 85 /min Kadytiffanie Garsia [facility]; [facility] Work Phone: Comment on above: Pattern: Regular virtual, reported by pt 07-26-2021 06:59-0500 SaO2% (BldA) [Mass fraction] 96 % [facility]; [facility] Work Phone: Comment on above: Room air virtual, reported by pt 01-19-2021 07:27-0400 Body height 168.28 cm [facility]; [facility] Work Phone: 01-19-2021 07:27-0400 Body mass index (BMI) [Ratio] 23.79 kg/m2 Mayuri [facility]; [facility] Work [...] (Body Surface Area) 1.74 m2 Mayuri Hwang [employer] [facility]; [facility] Work Phone: 06-23-2020 07:11-0500 Height 168.[address] [facility]; [facility] Work Phone: 06-23-2020 07:11-0500 Pulse (Heart Rate) 81 /min Mayuri Hwang [employer] Comprehens иван Internal Medicine; [facility] Work Phone: Comment on above: Pattern: Regular 06-23-2020 07:11-0500 Pulse Oximetry 98 % Gloria Sanju [facility]; [facility] Work Phone: Comment on above: Room air 06-23-2020 07:11-0500 SaO2% (BldA) [Mass fraction] 98 % Mayuri Hwang [facility]; [facility] Work Phone: Comment on above: Room air 12-17-2019 07:56-0400 BMI (Body Mass Index) 22.35 kg/m2 Mayuri Hwang [facility] Work Phone: 12-17-2019 07:56-0400 Body Temperature 97.2 [degF] Mayuri Hwang CMA Comprehensiv e Internal Medicine Work Phone: Comment on above: Method: Temporal 12-17-2019 07:56-0400 Body weight 63.[address] [facility] Work Phone: 12-17-2019 07:56-0400 BP Diastolic 80 mm[Hg] Mayuri Hwang [facility] Work Phone: Comment on above: Patient Position: Sitting; Cuff Location : Left Arm; Cuff Size: Standard 12-17-2019 07:56-0400 BP Systolic 110 mm[Hg] Mayuri Hwang [facility] Work Phone: Comment on above: Patient Position: Sitting; Cuff Location : Left Arm; Cuff Size: Standard 12-17-2019 07:56-0400 BSA (Body Surface Area) 1.[address] [facility] Work Phone: 12-17-2019 07:56-0400 Height 168.28 cm Mayuri Hwang [facility] Work Phone: 12-17-2019 07:56-0400 Pulse (Heart Rate) 81 /min Mayuri Hwang [employer] Comprehens иван Internal Medicine Work Phone: Comment on above: Pattern: Regular 12-17-2019 07:56-0400 Pulse Oximetry 98 % Gloria Sanju [facility] Work Phone: Comment on above: Room air 12-17-2019 07:56-0400 Respiratory Rate 18 /min Mayuri Hwang [employer] Comprehensiv e Internal Medicine Work Phone: Comment on above: Pattern: Unlabored 12-17-2019 07:56-0400 SaO2% (BldA) [Mass fraction] 98 % Mayuri Hwang [facility]; [facility] Work Phone: Comment on above: Room air 05-05-2019 08:07-0400 BMI (Body Mass Index) 20.74 kg/m2 Samantha Causey [facility] Work Phone: 05-05-2019 08:07-0400 Body Temperature 98.1 [degF] Samantha Hdogeluisito [facility] Internal Medicine Work Phone: 05-05-2019 08:07-0400 Body weight 58.74 kg Samantha Slarb PHOTO EQUIPMENT TECHNICIAN [facility] Work Phone: 05-05-2019 08:07-0400 BP Diastolic 80 mm[Hg] Samantha Slarb PHOTO EQUIPMENT TECHNICIAN [facility] Work Phone: Comment on above: Patient Position: Sitting; Cuff Location : Left Arm; Cuff Size: Standard 05-05-2019 08:07-0400 BP Systolic 114 mm[Hg] Samantha Ayesharb PHOTO EQUIPMENT TECHNICIAN [facility] Work Phone: Comment on above: Patient Position: Sitting; Cuff Location : Left Arm; Cuff Size: Standard 05-05-2019 08:07-0400 BSA (Body Surface Area) 1.67 m2 Samantha Slarb PHOTO EQUIPMENT TECHNICIAN [facility] Work Phone: 05-05-2019 08:07-0400 Height 168.28 cm Samantha Ayesharb PHOTO EQUIPMENT TECHNICIAN [facility] Work Phone: 05-05-2019 08:07-0400 Pulse (Heart Rate) 72 /min Samantha Marium PHOTO EQUIPMENT TECHNICIAN Comprehensiv e Internal Medicine Work Phone: Comment on above: Pattern: Regular 05-05-2019 08:07-0400 Respiratory Rate 16 /min Samantha Ayesharb PHOTO EQUIPMENT TECHNICIAN [facility] Work Phone: Comment on [...] 07:13-0500 Pulse Oximetry 98 % Gloria Bills [facility] Medicine Work Phone: Comment on above: Room air 05-29-2018 07:13-0500 Respiratory Rate 18 /min Indira Valdes RN Comprehensiv e Internal Medicine Work Phone: Comment on above: Pattern: Unlabored 05-29-2018 07:13-0500 SaO2% (BldA) [Mass fraction] 98 % Indira Valdes RN [facility]; [facility] Work Phone: Comment on above: Room air 05-29-2018 07:13-0500 Weight 64.92 kg Gloria Bills [facility] Work Phone: 12-19-2017 07:24-0400 BMI (Body Mass Index) 21.99 kg/m2 Noris Molina [facility] Work Phone: 12-19-2017 07:24-0400 Body weight 62.26 kg Noris Molina [facility] Work Phone: 12-19-2017 07:24-0400 BP Diastolic 78 mm[Hg] [facility] Work Phone: Comment on above: Patient Position: Sitting; Cuff Location : Left Arm; Cuff Size: Standard 12-19-2017 07:24-0400 BP Systolic 122 mm[Hg] Noris Molina [facility] Work Phone: Comment on above: Patient Position: Sitting; Cuff Location : Left Arm; Cuff Size: Standard 12-19-2017 07:24-0400 BSA (Body Surface Area) 1.71 m2 Noris Molina [facility] Work Phone: 12-19-2017 07:24-0400 Height 168.28 cm Noris [facility] Medicine Work Phone: 12-19-2017 07:24-0400 Pulse (Heart Rate) 95 /min Noris Molina [facility] Work Phone: Comment on above: Pattern: Regular 12-19-2017 07:24-0400 Pulse Oximetry 97 % Gloria Bills [facility] Work Phone: Comment on above: Room air 12-19-2017 07:24-0400 Respiratory Rate 18 /min Noris Jesse [facility] Work Phone: Comment on above: Pattern: Unlabored 12-19-2017 07:24-0400 SaO2% (BldA) [Mass fraction] 97 % Noris Jesse [facility]; [facility] Work Phone: Comment on above: Room air 12-19-2017 07:24-0400 Weight 62.26 kg Gloria Bills [facility] Work Phone: 06-03-2017 09:41-0500 BMI (Body Mass Index) 20.17 kg/m2 Salena Pak MD [facility] Work Phone: 06-03-2017 09:41-0500 BP Diastolic 67 mm[Hg] Salena Pak MD [facility] Work Phone: 06-03-2017 09:41-0500 BP Systolic 100 mm[Hg] Salena Pak MD [facility] Work Phone: 06-03-2017 09:41-0500 Height 167.64 cm Salena Pak MD [facility] Work Phone: 06-03-2017 09:41-0500 Pulse (Heart Rate) 59 /min Salena Pak MD [facility] Work Phone: 06-03-2017 09:41-0500 Respiratory Rate 18 /min Salena Pak MD [facility] Work Phone: 06-03-2017 09:41-0500 Weight 56.7 kg Salena Pak MD [facility] Work Phone: 05-09-2017 07:27-0400 [...] Rate) 79 /min Indira Valdes RN Comprehens виан Internal Medicine Work Phone: Comment on above: Pattern: Regular 12-01-2015 07:10-0400 Pulse Oximetry 97 % Gloria Bills [facility] Work Phone: Comment on above: Room air 12-01-2015 07:10-0400 Respiratory Rate 18 /min Indira Valdes RN Comprehensiv e Internal Medicine Work Phone: Comment on above: Pattern: Unlabored 12-01-2015 07:10-0400 SaO2% (BldA) [Mass fraction] 97 % Indira Valdes RN [facility]; [facility] Work Phone: Comment on above: Room air 12-01-2015 07:10-0400 Weight 78.08 kg Gloria Sanju [facility] Work Phone: 06-02-2015 [...] Regular 06-02-2015 07:06-0500 Pulse Oximetry 98 % Glroiadion Bills [facility] Work Phone: Comment [...] air 11-25-2014 07:04-0400 Respiratory Rate 18 /min Indira Valdes RN [...] 08:24-0400 Pulse Oximetry 93 % Gloria Bills [facility] Work Phone: Comment [...] Unlabored 09-25-2012 10:-0400 Weight 72.83 kg Gloria Bills [facility] Work Phone: 05-29-2012 14:41-0500 [...] 05-29-2012 14:41-0500 Weight 70.31 kg Glorialali Wallon [facility] Work Phone: 05-22-2012 09:00-0500 BMI (Body Mass Index) 25.02 kg/m2 Janie Chappell [facility] Work Phone: 05-22-2012 09:00-0500 Body Temperature 98.5 [degF] Janie Chappell [facility] Work Phone: 05-22-2012 09:00-0500 Body weight 70.31 kg Janie Chappell [facility] Work Phone: 05-22-2012 09:00-0500 BP Diastolic 94 mm[Hg] Janie Chappell [facility] Work Phone: Comment on above: Patient Position: Sitting; Cuff Location : Left Arm; Cuff Size: Standard 05-22-2012 09:00-0500 BP Systolic 142 mm[Hg] Janie Chappell [facility] Work Phone: Comment on above: Patient Position: Sitting; Cuff Location : Left Arm; Cuff Size: Standard 05-22-2012 09:00-0500 BSA (Body Surface Area) 1.79 m2 Janie Chappell [facility] Work Phone: 05-22-2012 09:00-0500 Height [...] ambulatory Dr. Gloria Bills DO Work Phone: [facility] Work Phone: Start: 10-08-2024 End: 10-08-[address] Juan José Weiner MD -Laboratory, [place] Work Phone: Start: 10-08-2024 End: 10-08-2024 ambulatory Juan José Weiner Facility:[facility] Start: 09-21-2024 End: 09-21-[address] Gloria Bills DO Work Phone: [facility] Work Phone: Start: 09-21-2024 End: 09-21-2024 Patient encounter procedure Ngozi Ortega FOUNDRY MANAGER-C -Outpatient Breast Imaging Work Phone: Start: 09-21-2024 End: 09-21-2024 ambulatory Ngozi Ortega Facility:[facility] Start: 09-08-2024 End: 09-08-2024 Patient encounter procedure Ngozi Ortega FOUNDRY MANAGER-C -[facility] Work Phone: Start: 09-08-2024 End: 09-08-2024 Patient encounter status Ngozi Ortega FOUNDRY MANAGER-C [facility] Start: 09-08-2024 End: 09-08-2024 ambulatory Gloria Bills Facility:[facility] Start: 07-15-2024 End: 07-19-[address] JUAN JOSÉ WEINER MD Facility:[facility] Start: 07-15-2024 End: 07-19-[address] JUAN JOSÉ WEINER MD [facility] Start: 06-27-2024 End: 06-27-2024 Patient encounter procedure [place] Mishra Jose Raul FOUNDRY MANAGER-C -[facility] Work Phone: Start: 06-27-2024 End: 06-27-2024 ambulatory Gloria Sanju Facility:[facility] Start: 02-12-2024 ambulatory Gloria Sanju Facilit y:[facility] Start: 01-31-2024 End: 02-11-2024 ambulatory Juan José isamar Facility:[facility] Start: 01-23-2024 End: 01-23-2024 ambulatory Gloria Sanju Facility:[facility] Start: 12-05-2023 ambulatory Gloria Sanju Facilit y:[facility] Start: 12-05-2023 End: 12-05-2023 ambulatory Glorialali Wallon Facility:[facility] Start: 11-13-2023 End: 12-12-2023 [facility] Start: 09-19-2023 End: 09-19-[address] Gloria Bills Work Phone: [facility] Work Phone: Start: 09-19-2023 End: 09-19-[address] Gloria Bills Work Phone: [facility]-Outpatient Breast Imaging Work Phone: Start: 09-02-2023 End: 09-02-[address] Gloria Bills Work Phone: [facility] Work Phone: Start: 08-15-2023 End: 08-15-[address] Gloria Bills Work Phone: [facility] Work Phone: Start: 06-19-2023 End: 06-19-2023 ambulatory [facility] Work Phone: Start: 06-19-2023 End: 06-19-2023 Patient encounter procedure [facility] Work Phone: Start: 06-18-2023 End: 06-18-2023 ambulatory [facility] Work Phone: Start: 06-18-2023 End: 06-18-2023 Patient encounter procedure [facility] Work Phone: Start: 06-06-2023 End: 06-06-2023 ambulatory [facility] Work Phone: Start: 06-06-2023 End: 06-06-2023 Patient encounter procedure [facility] Work Phone: Start: 05-08-2023 End: 05-13-[address] JUAN JOSÉ WEINER MD Facility:[facility] Start: 05-08-2023 End: 05-12-[address] JUAN JOSÉ WEINER MD [facility] Start: 04-24-2023 Review Gloria colón DO Work Phone: [facility] Start: 04-24-2023 End: 04-24-2023 Office outpatient visit 25 minutes Gloria Bills DO Work Phone: [facility] Start: 04-23-2023 End: 04-23-2023 ambulatory [facility] Work Phone: Start: 04-23-2023 End: 04-23-2023 Patient encounter procedure [facility] Specimen Work Phone: Start: 03-04-2023 Review Gloria colón DO Work Phone: [facility] Start: 03-04-2023 End: 03-13-2023 Office outpatient visit 15 minutes Gloria Sanju DO Work Phone: [facility] Start: 12-25-2022 End: 12-25-2022 ambulatory [facility] Work Phone: Start: 12-25-2022 End: 12-25-2022 Patient encounter procedure [facility]-Outpatient Bone Densitometry Start: 11-26-2022 End: 11-26-2022 [...] Phone: [facility] Start: 10-25-2022 Review Gloria Fearo n DO Work Phone: [facility] Start: 07-22-2022 End: 07-22-2022 Phone Encounter Gloria Sanju DO Work Phone: [facility] Start: 07-01-2022 End: 07-01-2022 ambulatory [facility] Work Phone: Start: 07-01-2022 End: 07-01-2022 Patient encounter procedure [facility]-Laboratory, Specimen Start: 05-17-2022 End: 05-17-2022 ambulatory [facility] Work Phone: Start: 05-17-2022 End: 05-17-2022 Patient encounter procedure [facility]-Outpatient Breast [facility] Start: 04-22-2022 End: 04-22-2022 Patient encounter procedure [facility]-Laboratory, Specimen Start: 01-17-2022 End: 01-17-2022 Office [...] Phone: [facility] Start: 01-19-2021 Review Gloira Fearo n DO Work Phone: [facility] Start: 06-23-2020 End: 06-23-2020 Office outpatient visit 15 minutes Gloria Bills [facility] Start: 05-04-2020 End: 05-04-2020 Patient encounter procedure SHANTAL Sin CELI [facility] Start: 12-17-2019 End: 12-17-2019 Office outpatient visit [...] End: 12-10-2018 Phone Encounter Gloria Wallon [facility] Start: 05-29-2018 End: 05-29-2018 Office outpatient visit 15 minutes Gloria Sanju [facility] Start: 12-19-2017 End: 12-19-2017 Periodic preventive med est patient 40-64yrs Gloria Sanju [facility] Start: 12-19-2017 End: 12-19-2017 Physical examination Noris Bramb[facility]; [facility] Work Phone: Start: 12-12-2017 End: 12-12-2017 Phone Encounter Gloria Sanju [facility] Start: 05-09-2017 End: 05-09-2017 Office outpatient visit 15 minutes Gloria Bills [facility] Start: 11-04-2016 End: 11-04-2016 Periodic preventive med est patient 65yrs& older Gloria Bills [facility] Start: 11-04-2016 End: 11-04-2016 Physical examination Gloria Bills DO Work Phone: [facility] Start: 10-21-2016 End: 10-21-2016 Lab Order Gloria Bills [facility] Start: 05-31-2016 End: 05-31-2016 Patient encounter Gloria Bills [facility] Start: 05-31-2016 End: 05-31-2016 Office outpatient visit 15 minutes Gloria Bills [facility] Start: 12-01-2015 End: 12-01-2015 Office outpatient visit 25 minutes Gloria Bills [facility] Start: 06-02-2015 End: 06-02-2015 Office outpatient visit 25 minutes Gloria Bills [facility] Start: 11-25-2014 End: 11-25-2014 Office outpatient visit 25 minutes Gloria Bills [facility] Start: 10-06-2013 End: 10-06-2013 Patient encounter Gloria Bills [facility] Start: 10-14-2012 End: 10-14-2012 Phone Encounter Gloria Bills [facility] Start: 09-29-2012 End: 09-29-2012 Lab Order Gloria Bills [facility] Start: 09-25-2012 End: 09-25-2012 Patient encounter Gloria Bills [facility] Start: 05-29-2012 End: 05-29-2012 Patient encounter Gloria Bills [facility] Start: 05-25-2012 End: 05-25-2012 Phone Encounter Gloria Bills [facility] Start: 05-22-2012 End: 05-22-2012 Patient encounter Gloria Bills [facility] Patient encounter procedure Mayuri Hwang CMA [facility]; [facility] Work Phone: Patient encounter procedure Gisela Hope [facility]; [facility] Work Phone: Patient encounter procedure Kady Garsia [facility]; [facility] Work Phone: Patient encounter procedure Crystal Siddiqiford [facility]; [facility] Work Phone: Patient encounter procedure Crystal Siddiqiford [facility]; [facility] Work Phone: Patient encounter procedure Candace Deshawn SAUCEDO [facility]; [facility] Work Phone: Patient encounter procedure ANDREA Machado LPN [facility]; [facility] Work Phone: Physical examination Mayuri Kimballsal [facility]; [facility] Work Phone: Physical examination Gisela Hope PHOTO EQUIPMENT TECHNICIAN Com [facility]; [facility] Work Phone: Physical examination Kady Garsia PHOTO EQUIPMENT TECHNICIAN Co [facility]; [facility] Work Phone: Physical examination Cortestyrell Marley [facility] C [facility]; [facility] Work Phone: Physical examination Crystal Marley [facility] C o[facility]; [facility] Work Phone: Physical examination Samantha Hodgeluisito PHOTO EQUIPMENT TECHNICIAN Com [facility]; [facility] [...] Density Study Procedure Note: See Note; NOTES: [facility] Imaging Services [address] [place] [address] Dexa Bone Density Study MR#: [id number] Acct: [id number] Name: VIRGINIA VILLAGRAN Rep #: [id number] : 1970 F 52 From: Oliver mirza MD PCP: Dr. Gloria Bills DO Status: REG CLI Study: Dexa Bone Density Study Date of Exam: 12/25/22 Exam# [id number] Ordering Dr: Gloria Bills DO STUDY: DUAL [...] EDT , CC: Dr. Gloria Bills DO Textile Machine Operator: Signed Gloria Bills DO Work Phone: Start: 12-25-2022 Dual energy X-ray absorptiometry Start: 11-26-2022 End: 11-26-2022 Venous Duplex US, Unilateral Procedure Note: See Note; NOTES: [facility] Cardiovascular Services [address] [place] [address] Venous Duplex US, Unilateral 11/26/22 0857 MR#: [id number] Acct: [id number] Name: VIRGINIA VILLAGRAN Rep #: [id number] : 1970 52 From: Ric Kwon MD [...] Ric Kwon MD CC: Aidee Chappell NP; FOUNDRY MANAGER-C Aidee Chappell; Dr. Gloria Bills DO Date Dictated: 11/26/22 0857 Date Transcribed: 11/26/221701 Textile Machine Operator: Signed Aidee Chappell [facility] Work Phone: Start: 05-17-2022 Screening mammography Start: 05-17-2022 End: 05-17-2022 SCRN MAMM (CAD)W/EUGENIO BILAT Procedure Note: See Note; NOTES: [facility] Imaging Services [address] [place] [address] SCRN MAMM (CAD)W/EUGENIO BILAT MR#: [id number] Acct: [id number] Name: VIRGINIA VILLAGRAN Rep #: [id number] : 1970 F 51 From: Oliver mirza MD PCP: Dr. Gloria Bills, DO Status: REG CLI Study: SCRN MAMM (CAD)W/EUGENIO BILAT Date of Exam: 11/02 Exam# [id number] Ordering Dr: Marilyn Foy DO MAMMOGRAPHY - [...] delay biopsy of a clinically suspicious abnormality. [id number] Electronically Signed: Oliver Shine MD at 8:58 EDT , CC: Dr. Marilyn Foy DO; Dr. Gloria Bills DO Textile Machine Operator: Signed Gloria Bills DO Work Phone: Start: 04-29-2021 End: 05-09-2021 Emergency Department Summary Comments: See Note; NOTES: [facility] Medical Records Department [address] [place] [address] Emergency Department Summary 04/29/21 MR#: [id number] Acct: [id number] Name: VIRGINIA VILLAGRAN Rep #: [id number] : 1970 50 From: Shiva Grier DO [...] quite painful. She denies any other injuries. [facility] Medical History (Updated 04/29/21 @ 14:40 by [...] the extremity. Patient given a prescription for [place] for pain. Radiography Diagnostic Testing: Three-view x-rays [...] Bills DO [Primary Care Provider] - Ivan Dasilva MD [STAFF PHYSICIAN] - 3-5 Days Disposition Disposition: Home, Self Care What to do if you have Problems For any increased pain, shortness of breath, bleeding, nausea or vomiting, chest pain, or any unexpected problems, contact your Primary Care Provider. Call [facility] ([phone]) or report to the closest Emergency Room. Call 911 if necessary. 04/29/21 1517 <Electronically signed by Shiva Grier DO> Cosigner Signature (if applicable): CC: Dr. Gloria Bills DO Signed Gloria Bills DO Work Phone: Start: 04-29-2021 End: 05-04-2021 Ankle min 3 Views Comments: See Note; NOTES: [facility] Imaging Services [address] [place] [address] Ankle min 3 Views MR#: [id number] Acct: [id number] Name: VIRGINIA VILLAGRAN #: [id number] : 1970 F 50 From: Keith Nguyen DO PCP: Dr. Gloria Bills DO Status: DEP ER Study: Ankle min 3 Views Date of Exam: 04/29/21 Exam# [id number] Ordering Dr: Shiva Grier DO STUDY: X-RAY [...] Keith Nguyen DO at 16:29 EDT Tel [phone], Service support , CC: Dr. Gloria Bills DO; Dr. Shiva Grier DO Textile Machine Operator: Signed Gloria Bills DO Work Phone: Start: 01-23-2021 End: 01-23-2021 Breast Limited Unilateral Comments: See Note; NOTES: [facility] Imaging Services [address] [place] [address] Breast Limited Unilateral MR#: [id number] Acct: [id number] Name: VIRGINIA VILLAGRAN Rep #: [id number] : 1970 F 50 From: Oliver mirza MD PCP: Dr. Gloria Bills DO Status: REG CLI Study: Breast Limited Unilateral Date of Exam: Exam# [id number] Ordering Dr: Gloria Bills DO STUDY: ULTRASOUND [...] support , CC: Dr. Gloria Bills DO Textile Machine Operator: Signed Gloria Bills DO Work Phone: Start: 01-23-2021 End: 01-23-2021 DIAG MAMM W/CAD, UNILAT Comments: See Note; NOTES: [facility] Imaging Services [address] [place] [address] DIAG MAMM W/CAD, UNILAT MR#: [id number] Acct: [id number] Name: VIRGINIA VILLAGRAN Rep #: [id number] : 1970 F 50 From: Oliver mirza MD PCP: Dr. Gloria Bills DO Status: REG CLI Study: DIAG MAMM W/CAD, UNILAT Date of Exam: 01/23/21 Exam# [id number] Ordering Dr: Gloria Bills DO MAMMOGRAPHY - [...] support , CC: Dr. Gloria Bills DO Textile Machine Operator: Signed Gloria Bills DO Work Phone: Start: 05-25-2020 End: 05-25-2020 SCREEN MAMM (CAD) W/EUGENIO BILAT Comments: See Note; NOTES: [facility] Imaging Services [address] [place] [address] SCREEN MAMM (CAD) W/EUGENIO BILAT MR#: [id number] Acct: [id number] Name: VIRGINIA VILLAGRAN Rep #: [id number] : 1970 F 49 From: Oliver mirza MD PCP: Dr. Gloria Bills, DO Status: REG CLI Study: SCREEN MAMM (CAD) W/EUGENIO BILAT Date of Exam: 07/25/19 Exam# [id number] Ordering Dr: Marilyn Foy DO MAMMOGRAPHY - [...] delay biopsy of a clinically suspicious abnormality. [id number] Electronically Signed: Oliver Shine, at 8:18 EST , Service support , CC: Dr. Marilyn Foy DO; Dr. Gloria Bills DO Textile Machine Operator: Signed Gloria Bills Start: 05-06-2019 End: 05-07-2019 Transvaginal Non- Comments: See Note; NOTES: [facility] Imaging Services [address] [place] [address] Transvaginal Non- MR#: [id number] Acct: [id number] Name: VIRGINIA VILLAGRAN Rep #: [id number] : 1970 F 48 From: Gordo Argueta MD PCP: Gloria Bills DO Status: REG CLI Study: Transvaginal Non- Date of Exam: 05/06/19 Exam# [id number] Ordering Dr: Gloria Bills DO STUDY: ULTRASOUND [...] Service support , CC: Gloria Bills DO Textile Machine Operator: Signed Gloria Bills Work Phone: Start: 05-06-2019 End: 05-07-2019 Pelvic (Non ) Comments: See Note; NOTES: [facility] Imaging Services [address] [place] [address] Pelvic (Non ) MR#: [id number] Acct: [id number] Name: VIRGINIA VILLAGRAN Rep #: [id number] : 1970 F 48 From: Gordo Argueta MD PCP: Gloria Bills DO Status: REG CLI Study: Pelvic (Non ) Date of Exam: 05/06/19 Exam# [id number] Ordering Dr: Gloria Bills DO STUDY: ULTRASOUND [...] Service support , CC: Gloria Bills DO Textile Machine Operator: Signed Gloria Bills Work Phone: Start: 05-06-2019 End: 05-07-2019 Aorta Comments: See Note; NOTES: [facility] Imaging Services [address] [place] [address] Aorta MR#: [id number] Acct: [id number] Name: VIRGINIA VILLAGRAN Rep #: [id number] : 1970 F 48 From: Nevin Gomez MD PCP: Gloria Bills DO Status: REG CLI Study: Aorta Date of Exam: 05/06/19 Exam# [id number] Ordering Dr: Gloria Bills DO PROCEDURES: ULTRASOUND [...] Service support , CC: Gloria Bills DO Textile Machine Operator: Signed Gloria Bills Work Phone: Start: 04-06-2019 [object Object] Comment on above: Result Comment: Total PSA test methodolo gy used is the Electrochemiluminescence Immunoassay. Performed By: #### C BCDIF, BMP, CK, LIPB, PSAS1, HBA1C ####[facility] [id number] [place], [place] [id number] Start: 09-04-2018 End: 09-04-2018 SCREENING MAMM (CAD), BILAT Comments: See Note; NOTES: [facility] Imaging Services [address] [place] [address] SCREENING MAMM (CAD), BILAT MR#: [id number] Acct: [id number] Name: MILI VILLAGRANYULIANA Sheppard Rep #: [id number] : 1970 F 48 From: Oliver Shine MD PCP: Gloria Bills DO Status: [facility] Study: SCREENING MAMM (CAD), BILAT Date of Exam: 09/04/18 Exam# [id number] Ordering Dr: Janelle Giles MD MAMMOGRAPHY - [...] delay biopsy of a clinically suspicious abnormality. [id number] Electronically Signed: Oliver Shine MD at 8:44 EST , Service support , CC: Janelle Giles MD; Gloria Bills DO Textile Machine Operator: Signed Gloria Bills Start: 01-01-2018 End: 01-01-2018 Downtime Report Comments: See Note; NOTES: [facility] Medical Records Department [address] [place] [address] Downtime Report MR#: [id number] Acct: [id number] Name: VIRGINIA VILLAGRAN Rep #: [id number] : 1970 47 From: Arjun Foy PCP: Gloria Bills DO Status: REG CLI This patient was seen during an EMR downtime December 15, 2017 - December 22, 2017. This patient may have a combination of paper and electronic documentation or all paper documentation. All documentation is viewable within the e-chart portion of [facility] for each patient visit. Gloria Bills Start: 04-22-2017 End: 04-22-2017 DIAG MAMM W/CAD, BILAT Comments: See Note; NOTES: [facility] Imaging Services [address] [place] [address] DIAG MAMM W/CAD, BILAT MR#: [id number] Acct: [id number] Name: VIRGINIA VILLAGRAN Rep #: [id number] : 1970 F 46 From: Oliver Shine MD PCP: Gloria Bills DO Status: REG CLI Study: DIAG MAMM W/CAD, BILAT Date of Exam: 04/22/17 Exam# [id number] Ordering Dr: Janelle Giles MD MAMMOGRAPHY - [...] Oliver Shine MD at 9:18 EDT Tel [phone], Service support , CC: Janelle Giles MD; Gloria Bills DO Textile Machine Operator: Signed Glorialali Bills Start: 04-14-2017 End: 04-17-2017 Breast Limited Unilateral Comments: See Note; NOTES: [facility] Imaging Services [address] [place] [address] Breast Limited Unilateral MR#: [id number] Acct: [id number] Name: VIRGINIA VILLAGRAN Rep #: [id number] : 1970 F 46 From: Marysol Conroy MD PCP: Gloria Bills DO Status: REG CLI Study: Breast Limited Unilateral Date of Exam: 04/14/17 Exam# [id number] Ordering Dr: Janelle Giles MD STUDY: ULTRASOUND [...] CC: Janelle Giles MD; Gloria Bills DO Textile Machine Operator: Signed Gloria Bills Start: 04-14-2017 End: 04-17-2017 DIAG MAMM W/CAD, BILAT Comments: See Note; NOTES: [facility] Imaging Services [address] [place] [address] DIAG MAMM W/CAD, BILAT MR#: [id number] Acct: [id number] Name: VIRGINIA VILLAGRAN Rep #: [id number] : 1970 F 46 From: Marysol Conroy MD PCP: Gloria Bills DO Status: REG CLI Study: DIAG MAMM W/CAD, BILAT Date of Exam: 04/14/17 Exam# [id number] Ordering Dr: Janelle Giles MD MAMMOGRAPHY - [...] delay biopsy of a clinically suspicious abnormality. [id number] Electronically Signed: Marysol Conroy MD at 12:00 EDT Tel , Service support , CC: Janelle Giles MD; Gloria Bills DO Textile Machine Operator: Signed Gloria Bills Start: 05-23-2016 End: 05-23-2016 Bilat Scrn Digital AND CAD Comments: See Note; NOTES: [facility] Imaging Services [address] [place] [address] Verdana 4d Bilat Scrn Digital AND CAD MR#: [id number] Acct: [id number] Name: VIRGINIA VILLAGRAN Rep #: [id number] : 1970 F 45 From: Oliver Shine MD PCP: Gloria Bills DO Status: REG CLI Study: Bilat Scrn Digital AND CAD Date of Exam: 05/23/16 Exam# [id number] Ordering Dr: Janelle Giles MD MAMMOGRAPHY - [...] delay biopsy of a clinically suspicious abnormality. [id number] Electronically Signed: Oliver Shine MD at 9:46 EST Tel [phone], Service support [phone], CC: Janelle Giles MD; Gloria Bills DO Textile Machine Operator: Signed Gloria Bills Start: 12-01-2015 End: 12-01-2015 Ecg routine ecg w/least 12 lds w/i&r [MEASUREMENTS ANALYSIS] Date of Test: 12/01/2015 07:39:32; Heart Rate: 64; IA Interval: 114; QRS: 96; QT Interval: 380; Corrected QT Interval (QTc): 387; P Wave [place]: 35; QRS Wave [place]: 37; T Wave [place]: 54; Blood Pressure: 122/78 [ECG DIAGNOSTIC STATEMENTS] Date of Test: 12/01/2015 07:39:32; Summary: Sinus Rhythm -Short IA syndrome Evelia = 114BORDERLINE RHYTHM Gloria Bills Work Phone: Start: 04-18-2015 End: 04-18-2015 Bilat Scrn Digital AND CAD Comments: See Note; NOTES: [facility] Imaging Services [address] [place] [address] Breast Imaging Report MR#: [id number] Acct: [id number] Name: VIRGINIA VILLAGRAN Rep #: [id number] : 1970 F 44 From: Oliver Shine MD PCP: Gloria Bills DO Status: REG CLI Study: Bilat Scrn Digital AND CAD Date of Exam: 04/18/15 Exam# [id number] Ordering Dr: Janelle Giles MD MAMMOGRAPHY - [...] Oliver Shine MD at 7:55 EDT Tel [phone], Service support [phone], CC: Janelle Giles MD; Gloria Bills DO Textile Machine Operator: Signed Gloria Bills Start: 03-06-2015 End: 03-06-2015 Operative Report Comments: See Note; NOTES: [facility] Medical Records Department [address] [place] [address] Operative Report MR#: [id number] Acct: [id number] Name: VIRGINIA VILLAGRAN Rep #: [id number] : 1970 44 From: Janelle Giles MD PCP: Gloria Bills DO Status: [facility] DATE OF SERVICE: 02/28/2015 DATE OF [...] time. Janelle Giles MD T: NTS JOB: [id number] 03/06/15 0714 <Electronically signed by Janelle Giles MD> Date Janelle Giles MD Cosigner Signature (If Indicated): Date CC: Janelle Giles MD; Gloria Bills DO Date Dictated: 03/02/15 1336 Date Transcribed: 03/02/151335 Textile Machine Operator: Signed Gloria Bills Start: 02-28-2015 End: 02-28-2015 Operative Report Comments: See Note; NOTES: [facility] Medical Records Department [address] [place] [address] Operative Report 02/28/15 1617 MR#: [id number] Acct: [id number] Name: VIRGINIA VILLAGRAN Rep #: [id number] : 1970 44 From: Janelle Giles MD PCP: Gloria Bills DO Status: REG SDC Y Location: [place] [address] Operative Report (Blank) Date of Procedure: 02/28/15 [...] 02-28-2015 Discharge Instruction Comments: See Note; NOTES: [facility] Medical Records Department [address] [place] [address] Instructions for Home/Discharge Instructions 02/28/15 1615 MR#: [id number] Acct: [id number] Name: TYSHAWNVIRGINIA Rep #: [id number] : 1970 44 From: Janelle Giles MD [...] c [Multivitamin] 1 tablet PO DAILY 02/21/15 [place]-3 Fatty Acids [Fish Oil] 300 mg PO [...] of Test: 11/25/2014 07:52:19; Heart Rate: 68; IA Interval: 118; QRS: 92; QT Interval: 374; Corrected QT Interval (QTc): 388; P Wave [place]: 33; QRS Wave [place]: 35; T Wave [place]: 30; Blood Pressure: 118/64 [ECG DIAGNOSTIC STATEMENTS] Date of Test: 11/25/2014 07:52:19; Summary: Sinus Rhythm -Short IA syndrome Evelia = 118BORDERLINE RHYTHM [MEASUREMENTS ANALYSIS] Date of Test: 11/25/2014 07:51:53; Heart Rate: 65; IA Interval: 116; QRS: 92; QT Interval: 372; Corrected QT Interval (QTc): 380; P Wave [place]: 36; QRS Wave [place]: 35; T Wave [place]: 31; Blood Pressure: 118/64 [ECG DIAGNOSTIC STATEMENTS] Date of Test: 11/25/2014 07:51:53; Summary: Sinus Rhythm -Short IA syndrome Evelia = 116BORDERLINE RHYTHM Gloria Bills [...] Comment on above: 04/08/18 Colonoscopy Kady Ady PHOTO EQUIPMENT TECHNICIAN Comment on above: 04/08/18 Colonoscopy Kayela Donell SHAMPOO PERSON Comment on above: 04/08/18 Colonoscopy Kayela Donell SHAMPOO PERSON Comment on above: 04/08/18 Colonoscopy Samantha Slarb [...] Comment on above: 02/25 D&C Kady Ady PHOTO EQUIPMENT TECHNICIAN Comment on above: 02/25 D&C Kayela Mesa SHAMPOO PERSON Comment on above: 02/25 D&C Kayela Donell SHAMPOO PERSON Comment on above: 02/25 D&C Samantha Slarb [...] Comment on above: childhood Tonsillectomy Kady Ady PHOTO EQUIPMENT TECHNICIAN Comment on above: childhood Tonsillectomy Kayela Mesa SHAMPOO PERSON Comment on above: childhood Tonsillectomy Kayela Donell SHAMPOO PERSON Comment on above: childhood Tonsillectomy Samantha Slarb L NIKA Comment on above: childhood Tonsillectomy Candace Saab Comment on above: childhood Tonsillectomy ANDREA Machado LPN Comment on above: childhood Plan of Treatment Date Care Activity Detail Author [facility]: [facility]06[facility] Start: 04-24-2023 Procedure Education Eprescribe d prescriptions (G8553) [facility] Work Phone: Start: 04-24-2023 Provider Instruction s for Treatment [facility]; [facility] Work Phone: Start: 04-24-2023 25 hydroxy includes fractions if performed CALCIFIDIOL (85995) VIT D 25 [facility]; [facility] Work Phone: Start: 04-24-2023 Assay of thyroid stimulating hormone tsh TSH (36212) [facility]; [facility] Work Phone: Start: 04-24-2023 Urnls dip stick/tabl et reagent auto microscopy URINALYSIS, W/ MICRO (56340) [facility]; [facility] Work Phone: Start: 04-24-2023 Urine albumin quantitative MICROALBUMIN: CREATININE RATIO (74306) AND (56637) [facility]; [facility] Work Phone: Start: 04-24-2023 Comprehensive metabo lic panel METABOLIC PANEL, COMPREHENSIVE (86350) [facility]; [facility] Work Phone: Start: 04-24-2023 Lipid panel LIPID PANEL (65447) Com [facility]; [facility] Work Phone: Start: 04-24-2023 Blood count complete auto&auto difrntl wbc CBC W/AUTO DIFF WBC (16148) [facility]; [facility] Work Phone: Start: 04-23-2023 Protein measurement [facility] Start: 03-04-2023 Procedure Education Eprescribe d [...] 10-25-2022 Hepatic function panel HEPATIC FUNCTION PANEL (15862) [facility]; [facility] Work Phone: Comment on above: do December 2022 Start: 10-25-2022 Lipid panel LIPID PANEL (92184) [facility] pre[facility]; [facility] Work Phone: Comment on above: do in December 2022 Start: 10-25-2022 Procedure Education Eprescribe d prescriptions (G8553) [facility]; [facility] Work Phone: Start: 10-25-2022 Provider Instruction s for Treatment HTN/CAD Red Flags [facility]; [facility] Work Phone: Start: 10-25-2022 25 hydroxy includes fractions if performed CALCIFEDIOL (36881) [facility]; [facility] Work Phone: Start: 10-25-2022 Assay of thyroid stimulating hormone tsh TSH (45261) [facility]; [facility] Work Phone: Start: 10-25-2022 Urnls dip stick/tabl et reagent auto microscopy URINALYSIS, W/ MICRO (19291) [facility]; [facility] Work Phone: Start: 10-25-2022 Urine albumin quantitative MICROALBUMIN: CREATININE RATIO (71499) AND (91651) [facility]; [facility] Work Phone: Start: 10-25-2022 Comprehensive metabo lic panel METABOLIC PANEL, COMPREHENSIVE (23870) [facility]; [facility] Work Phone: Start: 10-25-2022 Blood count complete auto&auto difrntl wbc CBC W/AUTO DIFF WBC (83289) [facility]; [facility] Work Phone: Start: 07-22-2022 Lipid panel LIPID PANEL (79485) [facility] pre[facility]; [facility] Work Phone: Start: 01-17-2022 Procedure Education Eprescribe d prescriptions (G8553) [facility]; [facility] Work Phone: Start: 01-17-2022 Provider Instruction s for Treatment [facility]; [facility] Work Phone: Start: 01-17-2022 Basic metabolic pane l calcium total Metabolic Panel, Basic (95521) [facility]; [facility] Work Phone: Start: 07-26-2021 Procedure Education Eprescribe d prescriptions (G8553) [facility]; [facility] Work Phone: Start: 07-26-2021 Provider Instruction s for Treatment [facility]; [facility] Work Phone: Start: 07-26-2021 25 hydroxy includes fractions if performed CALCIFIDIOL (67373) VIT D 25 [facility]; [facility] Work Phone: Start: 07-26-2021 Assay of thyroid stimulating hormone tsh TSH (57618) [facility]; [facility] Work Phone: Start: 07-26-2021 Urnls dip stick/tabl et reagent auto microscopy URINALYSIS, W/ MICRO (65488) [facility]; [facility] Work Phone: Start: 07-26-2021 Urine albumin quantitative MICROALBUMIN: CREATININE RATIO (39369) AND (65437) [facility]; [facility] Work Phone: Start: 07-26-2021 Comprehensive metabo lic panel METABOLIC PANEL, COMPREHENSIVE (25864) [facility]; [facility] Work Phone: Start: 07-26-2021 Blood count complete auto&auto difrntl wbc CBC W/AUTO DIFF WBC (55244) [facility]; [facility] Work Phone: Start: 07-26-2021 Lipid panel LIPID PANEL (44173) [facility]; [facility] Work Phone: Start: 01-19-2021 Procedure Education Eprescribe d prescriptions (G8553) [facility]; [facility] Work Phone: Start: 01-19-2021 Provider Instruction s for Treatment [facility]; [facility] Work Phone: Start: 01-19-2021 Cyanocobalamin vitam in b-12 VITAMIN B-12 (CYANOCOBALAMIN) (09886) [facility]; [facility] Work Phone: Start: 06-23-2020 Procedure Education Eprescribe d prescriptions (G8553) [facility]; [facility] Work Phone: Start: 06-23-2020 Provider Instruction s for Treatment [facility]; [facility] Work Phone: Start: 06-23-2020 TSH Qn TSH (65034) [facility]prehens [facility]; [facility] Work Phone: Start: 06-23-2020 Urnls dip stick/tabl et reagent auto microscopy URINALYSIS, W/ MICRO (25299) [facility]; [facility] Work Phone: Start: 06-23-2020 Urine albumin quantitative MICROALBUMIN: CREATININE RATIO (49580) AND (99478) [facility]; [facility] Work Phone: Start: 06-23-2020 Comprehensive metabo lic panel METABOLIC PANEL, COMPREHENSIVE (29572) [facility]; [facility] Work Phone: Start: 06-23-2020 Blood count complete auto&auto difrntl wbc CBC W/AUTO DIFF WBC (98952) [facility]; [facility] Work Phone: Start: 06-23-2020 Lipid panel LIPID PANEL (54095) [facility]; [facility] Work Phone: Start: 12-17-2019 Procedure Education Eprescribe d prescriptions (G8553) [facility] Work Phone: Start: 12-17-2019 Provider Instruction s for Treatment [facility] Work Phone: Start: 05-05-2019 Provider Instruction s for Treatment [facility] Work Phone: Start: 01-15-2019 Provider Instruction s for Treatment [facility] Work Phone: Start: 01-15-2019 Glucose [Mass/Vol] GLUCOSE (14023) [facility] Work Phone: Start: 01-15-2019 Lipoprotein blood qu an numbers & subclasses NMR Profile (81159) [facility] Work Phone: Start: 12-10-2018 25 hydroxy includes fractions if performed CALCIFEDIOL (62512) [facility] Work Phone: Start: 12-10-2018 Comprehensive metabo lic panel METABOLIC PANEL, COMPREHENSIVE (93337) [facility] Work Phone: Start: 12-10-2018 Blood count complete auto&auto difrntl wbc CBC W/AUTO DIFF WBC (03032) [facility] Work Phone: Start: 12-10-2018 Assay of thyroid stimulating hormone tsh TSH (THYROID STIMULATING HORMONE) (08340) [facility]; [facility] Work Phone: Start: 12-10-2018 TSH Qn TSH (THYROID STIMULATING HORMONE) (44635) [facility] Work Phone: Start: 12-10-2018 Urnls dip stick/tabl et reagent auto microscopy URINALYSIS, W/ MICRO (95018) [facility] Work Phone: Start: 12-10-2018 Urine albumin quantitative MICROALBUMIN: CREATININE RATIO (10261) AND (07568) [facility] Work Phone: Start: 12-10-2018 Lipoprotein blood qu an numbers & subclasses NMR Profile (44502) [facility] Work Phone: Start: 05-29-2018 Provider Instruction s for Treatment [facility] Work Phone: Start: 05-29-2018 25 hydroxy includes fractions if performed CALCIFIDIOL (74251) VIT D 25 [facility] Work Phone: Start: 05-29-2018 Urnls dip stick/tabl et reagent auto microscopy URINALYSIS, W/ MICRO (87803) [facility] Work Phone: Start: 05-29-2018 Urine albumin quantitative MICROALBUMIN: CREATININE RATIO (59051) AND (78482) [facility] Work Phone: Start: 05-29-2018 Comprehensive metabo lic panel METABOLIC PANEL, COMPREHENSIVE (80920) [facility] Work Phone: Start: 05-29-2018 Blood count complete auto&auto difrntl wbc CBC W/AUTO DIFF WBC (17356) [facility] Work Phone: Start: 05-29-2018 Protein mass conc LIPOPROTEIN, BLD, BY NMR (42545) [facility] Work Phone: Start: 12-19-2017 Procedure Education Eprescribe d prescriptions (G7014) [facility] Work Phone: Start: 12-19-2017 Provider Instruction s for Treatment Reviewed Lab [facility] Work Phone: Start: 12-12-2017 25 hydroxy includes fractions if performed CALCIFEDIOL (46551) [facility] Work Phone: Start: 12-12-2017 Urine albumin quantitative MICROALBUMIN: CREATININE RATIO (84874) AND (64727) [facility] Work Phone: Start: 12-12-2017 Urinalysis qual/semiquant except immunoassays URINALYSIS (64361) [facility] Work Phone: Start: 12-12-2017 Assay of thyroid stimulating hormone tsh TSH (75911) [facility]; [facility] Work Phone: Start: 12-12-2017 Thyrotropin Qn TSH (71909) [facility] Work Phone: Start: 12-12-2017 Blood count complete automated CBC (Auto) (97708) [facility] Work Phone: Start: 12-12-2017 Comprehensive metabo lic panel Metabolic Panel, Comprehensive (61150) [facility] Work Phone: Start: 12-12-2017 Lipid panel Lipid Panel (39779) [facility] Work Phone: Start: 11-05-2017 Assay of thyroid stimulating hormone tsh TSH (40234) [facility]; [facility] Work Phone: Start: 11-05-2017 Lipid panel LIPID PANEL (13787) [facility] Work Phone: Start: 11-05-2017 Thyrotropin Qn TSH (88498) [facility] Work Phone: Start: 06-03-2017 End: 06-03-2017 Follow-up visit [facility] Work Phone: Start: 06-03-2017 End: 06-03-2017 Appointment Appointment [facility] Work Phone: Start: 05-09-2017 [...] includes fractions if performed Vitamin D Hydroxy (04901) [facility] Work Phone: Start: 11-25-2014 End: 11-25-2014 Ecg routine ecg w/least 12 lds w/i&r EKG (37455) [facility]; [facility] Work Phone: Comment on above: nsr no acute chgn Start: 11-25-2014 Assay of thyroid stimulating hormone tsh TSH (56082) [facility]; [facility] Work Phone: Start: 11-25-2014 Thyrotropin Qn TSH (45297) [facility] Work Phone: Start: 11-25-2014 Urine albumin quantitative MICROALBUMIN: CREATININE RATIO (75104) AND (62321) [facility] Work Phone: Start: 11-25-2014 Comprehensive metabo lic panel METABOLIC PANEL, COMPREHENSIVE (32290) [facility] Work Phone: Start: 11-25-2014 Lipid panel LIPID PANEL (05665) [facility] Work Phone: Start: 11-25-2014 Blood count manual c ell count each CBC with auto diff (24655) [facility] Work Phone: Start: 10-06-2013 Provider Instruction s for Treatment [facility] Work Phone: Start: 09-29-2012 Hepatic function panel HEPATIC FUNCTION PANEL (34870) [facility] Work Phone: Comment on above: recheck in 2 wee ks Start: 09-28-2012 End: 09-28-2012 Follow Up Appt Other Follow Up Appt Other [facility] Work Phone: Start: 09-25-2012 Provider Instruction s for Treatment [facility] Work Phone: Start: 07-01-2012 End: 07-02-2012 *BMP *BMP [facility] Work Phone: Start: 07-01-2012 End: 07-01-2012 aPTT *PTT-Partial Thromboplastin Time [facility] Work Phone: Start: 07-01-2012 End: 07-02-2012 CBC W Auto Differential panel - Blood *CBC without Diff [facility] Work Phone: Start: 07-01-2012 End: 07-02-2012 INR Coag RelTime (PPP) *PT/INR [facility] Work Phone: Start: 06-29-2012 End: 09-28-2012 Left Heart Cath Left Heart Cath [facility] Work Phone: Start: 06-17-2012 End: 06-29-2012 *BMP *BMP [facility] Work Phone: Start: 06-17-2012 End: 06-17-2012 Ecg routine ecg w/least 12 lds w/i&r EKG (In office) [facility] Work Phone: Start: 06-17-2012 End: 06-17-2012 Follow Up Appt 3 months Follow Up Appt 3 months [facility] Work Phone: Start: 05-29-2012 Provider Instruction s for Treatment [facility] Work Phone: Start: 05-25-2012 Dna antibody [place]/double stranded DNA ANTIBODY-NATV/DBL ST (88052) test code 421157 [facility] Work Phone: Start: 05-25-2012 Protein mass conc ANTI-WOODWORKING BELT SANDER (AN TI RIBONUCLEAR PROTEIN ANTIBODY) (14986) test code 942814 [facility] Work Phone: Start: 05-25-2012 Extractable nuclear antigen antibody any method [facility] Work Phone: Start: 05-25-2012 Rheumatoid factor quantitative RHEUMATOID FACTOR-QUANT (90076) test code 524036 [facility] Work Phone: Start: 05-22-2012 Patient Education Heart Palpit ations *: heart palpitations [facility] Work Phone: Start: 05-22-2012 Provider Instruction s for Treatment [facility] Work Phone: Start: 05-22-2012 Fibrin dgradj produc ts d-dimer quantitative D-Dimer (00262) [facility] Work Phone: Path report.final Dx Spec [facility] Work Phone: [facility] [...] Immunization Date Immunization Notes Care Provider Fa [facility] 10-02-2020 zoster vaccine, live Luca Bills [...] 07-14-2019 influenza, seasonal, injectable Gloria Bills [facility]; [facility] Work Phone: Payers Date Payer Category Payer Unknown 2023 Self-pay [id number] 2020 Unknown [id number] 2018 Unknown [id number] 2010 Unknown [id number] 1968 Unknown [id number] 2.16.84 [id number] 1968 Unknown [id number] 2.16.84 [id number] 1968 Unknown [id number] 2.16.8 [id number] 1968 Unknown [id number] 2.16.8 [id number] Unknown [id number] Unknown [id number] 2.16.8 [id number] Unknown [id number] 2.16.8 [id number] Unknown [id number] 2.16.8 [id number] Unknown [id number] 2.16.8 [id number] Unknown [id number] 2.16.8 [id number] Unknown [id number] 2.16.8 [id number] Unknown [id number] 2.16.8 [id number] Unknown [id number] 2.16.8 [id number] Unknown [id number] 2.16.8 [id number] Unknown [id number] 2.16.8 [id number] Unknown [id number] 2.16.8 [id number] Social History Date Type Detail Facility Alcohol [...] Start: 04-29-2021 End: 09-02-2023 Tobacco smoking status FLIS Unknown if ever smoked [facility] Start: 1970 Sex Assigned At Female W [facility] Start: 09-02-2023 Tobacco smoking status NHIS Never smoked tobacco (finding) [facility] Start: 09-29-2024 End: 10-13-2024 Sex Female (finding) [facility] Functional Status Date Assessment Result Facility [...] andDrug Administration. PATIENT WAS FASTINGP ERFORMED BY: [employer] [address] [id number] BY: openPeopleHoly Name Medical CenterOjqxlp7214 [facility] [id number] 07-29-2018 LP-IR Score LP-IR Score <25 [facility] Work Phone: Comment on [...] andDrug Administration. PATIENT WAS FASTINGP ERFORMED BY: [employer] [id number] BY: [employer] [id number] [facility] [id number] Clinical Notes 06-27-2024 Note Date & Type Note Facility 06-27-2024 Evaluation note Diagnosis Onset Date Resolution URI (upper respiratory infection) acute June 27 024 1:42pm Encounter for routine gynecological examination noneactive September 08 025 8:02am [facility] Work Phone: Evaluation + Plan note No data available for this section [facility] Evaluation noteNo assessment information available [facility] Work Phone: Evaluation note* Diagnosis Onset Date Resolution Status Encounter for routine gynecological examination noneactive [facility] Work Phone: Hospital Discharge instructions No data available for this section [facility] Instructions* Name Dates Details How to Access Health Informa tion Online using Patient Portal and [employer] Apps Indication:Non-smoker Start:19-Jan-2021 Instruction Type:Patient Education Patient Instructions Indication:Non-smoker Start:19-Jan-2021 Instruction Type:Provider Instructions for Treatment Patient Instructions Indication:Hypertension, benign Start:23-Jun-2020 Instruction Type:Provider Instructions for Treatment How to Access Health Informa tion Online using Patient Portal and [employer] Apps Indication:Hypertension, benign Start:23-Jun-2020 Instruction Type:Patient Education [...] tion Online using Patient Portal and [employer] Apps Indication:Non-smoker Start:19-Jan-2021 Instruction Type:Patient Education Patient Instructions Indication:Non-smoker Start:19-Jan-2021 Instruction Type:Provider Instructions for Treatment Patient Instructions Indication:Hypertension, benign Start:23-Jun-2020 Instruction Type:Provider Instructions for Treatment How to Access Health Informa tion Online using Patient Portal and [employer] Apps Indication:Hypertension, benign Start:23-Jun-2020 Instruction Type:Patient Education [...] tion Online using Patient Portal and [employer] Apps Indication:Non-smoker Start:19-Jan-2021 Instruction Type:Patient Education Patient Instructions Indication:Non-smoker Start:19-Jan-2021 Instruction Type:Provider Instructions for Treatment Patient Instructions Indication:Hypertension, benign Start:23-Jun-2020 Instruction Type:Provider Instructions for Treatment How to Access Health Informa tion Online using Patient Portal and [employer] Apps Indication:Hypertension, benign Start:23-Jun-2020 Instruction Type:Patient Education [...] tion Online using Patient Portal and [employer] Apps Indication:Non-smoker Start:19-Jan-2021 Instruction Type:Patient Education Patient Instructions Indication:Non-smoker Start:19-Jan-2021 Instruction Type:Provider Instructions for Treatment Patient Instructions Indication:Hypertension, benign Start:23-Jun-2020 Instruction Type:Provider Instructions for Treatment How to Access Health Informa tion Online using Patient Portal and [employer] Apps Indication:Hypertension, benign Start:23-Jun-2020 Instruction Type:Patient Education [...] tion Online using Patient Portal and [employer] Apps Indication:BMI 28.0-28.9,adult Start:26-Jul-2021 Instruction Type:Patient Education How to Access Health Informa tion Online using Patient Portal and [employer] Apps Indication:Non-smoker Start:19-Jan-2021 Instruction Type:Patient Education Patient Instructions Indication:Non-smoker Start:19-Jan-2021 Instruction Type:Provider Instructions for Treatment Patient Instructions Indication:Hypertension, benign Start:23-Jun-2020 Instruction Type:Provider Instructions for Treatment How to Access Health Informa tion Online using Patient Portal and [employer] Apps Indication:Hypertension, benign Start:23-Jun-2020 Instruction Type:Patient Education [...] tion Online using Patient Portal and [employer] Apps Indication:BMI 28.0-28.9,adult Start:26-Jul-2021 Instruction Type:Patient Education How to Access Health Informa tion Online using Patient Portal and [employer] Apps Indication:Non-smoker Start:19-Jan-2021 Instruction Type:Patient Education Patient Instructions Indication:Non-smoker Start:19-Jan-2021 Instruction Type:Provider Instructions for Treatment Patient Instructions Indication:Hypertension, benign Start:23-Jun-2020 Instruction Type:Provider Instructions for Treatment How to Access Health Informa tion Online using Patient Portal and [employer] Apps Indication:Hypertension, benign Start:23-Jun-2020 Instruction Type:Patient Education [...] tion Online using Patient Portal and [employer] Apps Indication:BMI 28.0-28.9,adult Start:17-Jan-2022 Instruction Type:Patient Education Patient Instructions Indication:BMI 28.0-28.9,adult Start:26-Jul-2021 Instruction Type:Provider Instructions for Treatment How to Access Health Informa tion Online using Patient Portal and [employer] Apps Indication:BMI 28.0-28.9,adult Start:26-Jul-2021 Instruction Type:Patient Education How to Access Health Informa tion Online using Patient Portal and [employer] Apps Indication:Non-smoker Start:19-Jan-2021 Instruction Type:Patient Education Patient Instructions Indication:Non-smoker Start:19-Jan-2021 Instruction Type:Provider Instructions for Treatment Patient Instructions Indication:Hypertension, benign Start:23-Jun-2020 Instruction Type:Provider Instructions for Treatment How to Access Health Informa tion Online using Patient Portal and [employer] Apps Indication:Hypertension, benign Start:23-Jun-2020 Instruction Type:Patient Education [...] tion Online using Patient Portal and [employer] Apps Indication:BMI 28.0-28.9,adult Start:17-Jan-2022 Instruction Type:Patient Education Patient Instructions Indication:BMI 28.0-28.9,adult Start:26-Jul-2021 Instruction Type:Provider Instructions for Treatment How to Access Health Informa tion Online using Patient Portal and [employer] Apps Indication:BMI 28.0-28.9,adult Start:26-Jul-2021 Instruction Type:Patient Education How to Access Health Informa tion Online using Patient Portal and [employer] Apps Indication:Non-smoker Start:19-Jan-2021 Instruction Type:Patient Education Patient Instructions Indication:Non-smoker Start:19-Jan-2021 Instruction Type:Provider Instructions for Treatment Patient Instructions Indication:Hypertension, benign Start:23-Jun-2020 Instruction Type:Provider Instructions for Treatment How to Access Health Informa tion Online using Patient Portal and [employer] Apps Indication:Hypertension, benign Start:23-Jun-2020 Instruction Type:Patient Education [...] tion Online using Patient Portal and [employer] Apps Indication:BMI 28.0-28.9,adult Start:17-Jan-2022 Instruction Type:Patient Education Patient Instructions Indication:BMI 28.0-28.9,adult Start:26-Jul-2021 Instruction Type:Provider Instructions for Treatment How to Access Health Informa tion Online using Patient Portal and [employer] Apps Indication:BMI 28.0-28.9,adult Start:26-Jul-2021 Instruction Type:Patient Education How to Access Health Informa tion Online using Patient Portal and [employer] Apps Indication:Non-smoker Start:19-Jan-2021 Instruction Type:Patient Education Patient Instructions Indication:Non-smoker Start:19-Jan-2021 Instruction Type:Provider Instructions for Treatment Patient Instructions Indication:Hypertension, benign Start:23-Jun-2020 Instruction Type:Provider Instructions for Treatment How to Access Health Informa tion Online using Patient Portal and [employer] Apps Indication:Hypertension, benign Start:23-Jun-2020 Instruction Type:Patient Education [...] tion Online using Patient Portal and [employer] Apps Indication:BMI 28.0-28.9,adult Start:17-Jan-2022 Instruction Type:Patient Education Patient Instructions Indication:BMI 28.0-28.9,adult Start:26-Jul-2021 Instruction Type:Provider Instructions for Treatment How to Access Health Informa tion Online using Patient Portal and [employer] Apps Indication:BMI 28.0-28.9,adult Start:26-Jul-2021 Instruction Type:Patient Education How to Access Health Informa tion Online using Patient Portal and [employer] Apps Indication:Non-smoker Start:19-Jan-2021 Instruction Type:Patient Education Patient Instructions Indication:Non-smoker Start:19-Jan-2021 Instruction Type:Provider Instructions for Treatment Patient Instructions Indication:Hypertension, benign Start:23-Jun-2020 Instruction Type:Provider Instructions for Treatment How to Access Health Informa tion Online using Patient Portal and [employer] Apps Indication:Hypertension, benign Start:23-Jun-2020 Instruction Type:Patient Education [...] tion Online using Patient Portal and [employer] Apps Indication:Hyperlipidemia, unspecified Start:25-Oct-2022 Instruction Type:Patient Education Patient Instructions Indication:BMI 28.0-28.9,adult Start:17-Jan-2022 Instruction Type:Provider Instructions for Treatment How to Access Health Informa tion Online using Patient Portal and [employer] Apps Indication:BMI 28.0-28.9,adult Start:17-Jan-2022 Instruction Type:Patient Education Patient Instructions Indication:BMI 28.0-28.9,adult Start:26-Jul-2021 Instruction Type:Provider Instructions for Treatment How to Access Health Informa tion Online using Patient Portal and [employer] Apps Indication:BMI 28.0-28.9,adult Start:26-Jul-2021 Instruction Type:Patient Education How to Access Health Informa tion Online using Patient Portal and [employer] Apps Indication:Non-smoker Start:19-Jan-2021 Instruction Type:Patient Education Patient Instructions Indication:Non-smoker Start:19-Jan-2021 Instruction Type:Provider Instructions for Treatment Patient Instructions Indication:Hypertension, benign Start:23-Jun-2020 Instruction Type:Provider Instructions for Treatment How to Access Health Informa tion Online using Patient Portal and [employer] Apps Indication:Hypertension, benign Start:23-Jun-2020 Instruction Type:Patient Education [...] tion Online using Patient Portal and [employer] Apps Indication:Hyperlipidemia, unspecified Start:25-Oct-2022 Instruction Type:Patient Education Patient Instructions Indication:BMI 28.0-28.9,adult Start:17-Jan-2022 Instruction Type:Provider Instructions for Treatment How to Access Health Informa tion Online using Patient Portal and [employer] Apps Indication:BMI 28.0-28.9,adult Start:17-Jan-2022 Instruction Type:Patient Education Patient Instructions Indication:BMI 28.0-28.9,adult Start:26-Jul-2021 Instruction Type:Provider Instructions for Treatment How to Access Health Informa tion Online using Patient Portal and [employer] Apps Indication:BMI 28.0-28.9,adult Start:26-Jul-2021 Instruction Type:Patient Education How to Access Health Informa tion Online using Patient Portal and [employer] Apps Indication:Non-smoker Start:19-Jan-2021 Instruction Type:Patient Education Patient Instructions Indication:Non-smoker Start:19-Jan-2021 Instruction Type:Provider Instructions for Treatment Patient Instructions Indication:Hypertension, benign Start:23-Jun-2020 Instruction Type:Provider Instructions for Treatment How to Access Health Informa tion Online using Patient Portal and [employer]rd [employer] Apps Indication:Hypertension, benign Start:23-Jun-2020 Instruction Type:Patient Education [...] tion Online using Patient Portal and [employer]rd [employer] Apps Indication:Right calf pain Start:26-Nov-2022 Instruction Type:Patient Education Patient Instructions Indication:Hyperlipidemia, unspecified Start:25-Oct-2022 Instruction Type:Provider Instructions for Treatment How to Access Health Informa tion Online using Patient Portal and [employer]rd Republican Apps Indication:Hyperlipidemia, unspecified Start:25-Oct-2022 Instruction Type:Patient Education Patient Instructions Indication:BMI 28.0-28.9,adult Start:17-Jan-2022 Instruction Type:Provider Instructions for Treatment How to Access Health Informa tion Online using Patient Portal and [employer]rd [employer] Apps Indication:BMI 28.0-28.9,adult Start:17-Jan-2022 Instruction Type:Patient Education Patient Instructions Indication:BMI 28.0-28.9,adult Start:26-Jul-2021 Instruction Type:Provider Instructions for Treatment How to Access Health Informa tion Online using Patient Portal and 3rd [employer] Apps Indication:BMI 28.0-28.9,adult Start:26-Jul-2021 Instruction Type:Patient Education How to Access Health Informa tion Online using Patient Portal and 3rd [employer] Apps Indication:Non-smoker Start:19-Jan-2021 Instruction Type:Patient Education Patient Instructions Indication:Non-smoker Start:19-Jan-2021 Instruction Type:Provider Instructions for Treatment Patient Instructions Indication:Hypertension, benign Start:23-Jun-2020 Instruction Type:Provider Instructions for Treatment How to Access Health Informa tion Online using Patient Portal and 3rd [employer] Apps Indication:Hypertension, benign Start:23-Jun-2020 Instruction Type:Patient Education [...] tion Online using Patient Portal and 3rd Republican Apps Indication:Non-smoker Start:04-Mar-2023 Instruction Type:Patient Education Patient Instructions Indication:Right calf pain Start:26-Nov-2022 Instruction Type:Provider Instructions for Treatment How to Access Health Informa tion Online using Patient Portal and 3rd Republican Apps Indication:Right calf pain Start:26-Nov-2022 Instruction Type:Patient Education Patient Instructions Indication:Hyperlipidemia, unspecified Start:25-Oct-2022 Instruction Type:Provider Instructions for Treatment How to Access Health Informa tion Online using Patient Portal and [employer]rd [employer] Apps Indication:Hyperlipidemia, unspecified Start:25-Oct-2022 Instruction Type:Patient Education Patient Instructions Indication:BMI 28.0-28.9,adult Start:17-Jan-2022 Instruction Type:Provider Instructions for Treatment How to Access Health Informa tion Online using Patient Portal and 3rd [employer] Apps Indication:BMI 28.0-28.9,adult Start:17-Jan-2022 Instruction Type:Patient Education Patient Instructions Indication:BMI 28.0-28.9,adult Start:26-Jul-2021 Instruction Type:Provider Instructions for Treatment How to Access Health Informa tion Online using Patient Portal and [employer]rd [employer] Apps Indication:BMI 28.0-28.9,adult Start:26-Jul-2021 Instruction Type:Patient Education How to Access Health Informa tion Online using Patient Portal and 3rd Republican Apps Indication:Non-smoker Start:19-Jan-2021 Instruction Type:Patient Education Patient Instructions Indication:Non-smoker Start:19-Jan-2021 Instruction Type:Provider Instructions for Treatment Patient Instructions Indication:Hypertension, benign Start:23-Jun-2020 Instruction Type:Provider Instructions for Treatment How to Access Health Informa tion Online using Patient Portal and 3rd [employer] Apps Indication:Hypertension, benign Start:23-Jun-2020 Instruction Type:Patient Education [...] tion Online using Patient Portal and 3rd Republican Apps Indication:Non-smoker Start:04-Mar-2023 Instruction Type:Patient Education Patient Instructions Indication:Right calf pain Start:26-Nov-2022 Instruction Type:Provider Instructions for Treatment How to Access Health Informa tion Online using Patient Portal and 3rd [employer] Apps Indication:Right calf pain Start:26-Nov-2022 Instruction Type:Patient Education Patient Instructions Indication:Hyperlipidemia, unspecified Start:25-Oct-2022 Instruction Type:Provider Instructions for Treatment How to Access Health Informa tion Online using Patient Portal and 3rd [employer] Apps Indication:Hyperlipidemia, unspecified Start:25-Oct-2022 Instruction Type:Patient Education Patient Instructions Indication:BMI 28.0-28.9,adult Start:17-Jan-2022 Instruction Type:Provider Instructions for Treatment How to Access Health Informa tion Online using Patient Portal and 3rd [employer] Apps Indication:BMI 28.0-28.9,adult Start:17-Jan-2022 Instruction Type:Patient Education Patient Instructions Indication:BMI 28.0-28.9,adult Start:26-Jul-2021 Instruction Type:Provider Instructions for Treatment How to Access Health Informa tion Online using Patient Portal and 3rd [employer] Apps Indication:BMI 28.0-28.9,adult Start:26-Jul-2021 Instruction Type:Patient Education How to Access Health Informa tion Online using Patient Portal and 3rd Republican Apps Indication:Non-smoker Start:19-Jan-2021 Instruction Type:Patient Education Patient Instructions Indication:Non-smoker Start:19-Jan-2021 Instruction Type:Provider Instructions for Treatment Patient Instructions Indication:Hypertension, benign Start:23-Jun-2020 Instruction Type:Provider Instructions for Treatment How to Access Health Informa tion Online using Patient Portal and 3rd [employer] Apps Indication:Hypertension, benign Start:23-Jun-2020 Instruction Type:Patient Education [...] tion Online using Patient Portal and 3rd Republican Apps Indication:Hypertension, benign Start:24-Apr-2023 Instruction Type:Patient Education Patient Instructions Indication:Non-smoker Start:04-Mar-2023 Instruction Type:Provider Instructions for Treatment How to Access Health Informa tion Online using Patient Portal and 3rd [employer] Apps Indication:Non-smoker Start:04-Mar-2023 Instruction Type:Patient Education Patient Instructions Indication:Right calf pain Start:26-Nov-2022 Instruction Type:Provider Instructions for Treatment How to Access Health Informa tion Online using Patient Portal and 3rd Republican Apps Indication:Right calf pain Start:26-Nov-2022 Instruction Type:Patient Education Patient Instructions Indication:Hyperlipidemia, unspecified Start:25-Oct-2022 Instruction Type:Provider Instructions for Treatment How to Access Health Informa tion Online using Patient Portal and 3rd Republican Apps Indication:Hyperlipidemia, unspecified Start:25-Oct-2022 Instruction Type:Patient Education Patient Instructions Indication:BMI 28.0-28.9,adult Start:17-Jan-2022 Instruction Type:Provider Instructions for Treatment How to Access Health Informa tion Online using Patient Portal and 3rd [employer] Apps Indication:BMI 28.0-28.9,adult Start:17-Jan-2022 Instruction Type:Patient Education Patient Instructions Indication:BMI 28.0-28.9,adult Start:26-Jul-2021 Instruction Type:Provider Instructions for Treatment How to Access Health Informa tion Online using Patient Portal and 3rd Republican Apps Indication:BMI 28.0-28.9,adult Start:26-Jul-2021 Instruction Type:Patient Education How to Access Health Informa tion Online using Patient Portal and 3rd Republican Apps Indication:Non-smoker Start:19-Jan-2021 Instruction Type:Patient Education Patient Instructions Indication:Non-smoker Start:19-Jan-2021 Instruction Type:Provider Instructions for Treatment Patient Instructions Indication:Hypertension, benign Start:23-Jun-2020 Instruction Type:Provider Instructions for Treatment How to Access Health Informa tion Online using Patient Portal and 3rd Republican Apps Indication:Hypertension, benign Start:23-Jun-2020 Instruction Type:Patient Education [...] tion Online using Patient Portal and 3rd Republican Apps Indication:Hypertension, benign Start:24-Apr-2023 Instruction Type:Patient Education Patient Instructions Indication:Non-smoker Start:04-Mar-2023 Instruction Type:Provider Instructions for Treatment How to Access Health Informa tion Online using Patient Portal and 3rd Republican Apps Indication:Non-smoker Start:04-Mar-2023 Instruction Type:Patient Education Patient Instructions Indication:Right calf pain Start:26-Nov-2022 Instruction Type:Provider Instructions for Treatment How to Access Health Informa tion Online using Patient Portal and 3rd Republican Apps Indication:Right calf pain Start:26-Nov-2022 Instruction Type:Patient Education Patient Instructions Indication:Hyperlipidemia, unspecified Start:25-Oct-2022 Instruction Type:Provider Instructions for Treatment How to Access Health Informa tion Online using Patient Portal and 3rd Republican Apps Indication:Hyperlipidemia, unspecified Start:25-Oct-2022 Instruction Type:Patient Education Patient Instructions Indication:BMI 28.0-28.9,adult Start:17-Jan-2022 Instruction Type:Provider Instructions for Treatment How to Access Health Informa tion Online using Patient Portal and 3rd Republican Apps Indication:BMI 28.0-28.9,adult Start:17-Jan-2022 Instruction Type:Patient Education Patient Instructions Indication:BMI 28.0-28.9,adult Start:26-Jul-2021 Instruction Type:Provider Instructions for Treatment How to Access Health Informa tion Online using Patient Portal and 3rd Republican Apps Indication:BMI 28.0-28.9,adult Start:26-Jul-2021 Instruction Type:Patient Education How to Access Health Informa tion Online using Patient Portal and 3rd Republican Apps Indication:Non-smoker Start:19-Jan-2021 Instruction Type:Patient Education Patient Instructions Indication:Non-smoker Start:19-Jan-2021 Instruction Type:Provider Instructions for Treatment Patient Instructions Indication:Hypertension, benign Start:23-Jun-2020 Instruction Type:Provider Instructions for Treatment How to Access Health Informa tion Online using Patient Portal and 3rd [employer] Apps Indication:Hypertension, benign Start:23-Jun-2020 Instruction Type:Patient Education [...] tion Online using Patient Portal and 3rd Republican Apps Indication:Hypertension, benign Start:24-Apr-2023 Instruction Type:Patient Education Patient Instructions Indication:Non-smoker Start:04-Mar-2023 Instruction Type:Provider Instructions for Treatment How to Access Health Informa tion Online using Patient Portal and 3rd Republican Apps Indication:Non-smoker Start:04-Mar-2023 Instruction Type:Patient Education Patient Instructions Indication:Right calf pain Start:26-Nov-2022 Instruction Type:Provider Instructions for Treatment How to Access Health Informa tion Online using Patient Portal and 3rd Republican Apps Indication:Right calf pain Start:26-Nov-2022 Instruction Type:Patient Education Patient Instructions Indication:Hyperlipidemia, unspecified Start:25-Oct-2022 Instruction Type:Provider Instructions for Treatment How to Access Health Informa tion Online using Patient Portal and 3rd Republican Apps Indication:Hyperlipidemia, unspecified Start:25-Oct-2022 Instruction Type:Patient Education Patient Instructions Indication:BMI 28.0-28.9,adult Start:17-Jan-2022 Instruction Type:Provider Instructions for Treatment How to Access Health Informa tion Online using Patient Portal and 3rd Republican Apps Indication:BMI 28.0-28.9,adult Start:17-Jan-2022 Instruction Type:Patient Education Patient Instructions Indication:BMI 28.0-28.9,adult Start:26-Jul-2021 Instruction Type:Provider Instructions for Treatment How to Access Health Informa tion Online using Patient Portal and 3rd Republican Apps Indication:BMI 28.0-28.9,adult Start:26-Jul-2021 Instruction Type:Patient Education How to Access Health Informa tion Online using Patient Portal and 3rd Republican Apps Indication:Non-smoker Start:19-Jan-2021 Instruction Type:Patient Education Patient Instructions Indication:Non-smoker Start:19-Jan-2021 Instruction Type:Provider Instructions for Treatment Patient Instructions Indication:Hypertension, benign Start:23-Jun-2020 Instruction Type:Provider Instructions for Treatment How to Access Health Informa tion Online using Patient Portal and 3rd Republican Apps Indication:Hypertension, benign Start:23-Jun-2020 Instruction Type:Patient Education [...] note No data available for this section [facility] Reason for referral (narrative)[facility] Instructions Name Dates Details BMI [...] tion Online using Patient Portal and 3rd [employer] Apps Indication:Hypertension, benign Start:23-Jun-2020 Instruction Type:Patient Education [...] Records Found Name Dates Details Immunization Registry [place] - Effective on 06/23/2020. Expiration date unspecified Effective:23-Jun-2020 Name Dates Details Immunization Registry [place] - Effective on 06/23/2020. Expiration date unspecified Effective:23-Jun-2020 Name Dates Details Immunization Registry [place] - Effective on 06/23/2020. Expiration date unspecified Effective:23-Jun-2020 Name Dates Details Immunization Registry [place] - Effective on 06/23/2020. Expiration date unspecified Effective:23-Jun-2020 Name Dates Details Immunization Registry [place] - Effective on 06/23/2020. Expiration date unspecified Effective:23-Jun-2020 Name Dates Details Immunization Registry [place] - Effective on 06/23/2020. Expiration date unspecified Effective:23-Jun-2020 Name Dates Details Immunization Registry [place] - Effective on 06/23/2020. Expiration date unspecified Effective:23-Jun-2020 Name Dates Details Immunization Registry [place] - Effective on 06/23/2020. Expiration date unspecified Effective:23-Jun-2020 Advance Directive Response Recorded Date/ Time Advance Directives No February 21, 2015 2:31pm Living Will No April 29 1:01pm Power of Pharmacy Consultant No April 29, 2021 1:01pm Name Dates Details Immunization Registry [place] - Effective on 06/23/2020. Expiration date unspecified Effective:23-Jun-2020 Name Dates Details Immunization Registry [place] - Effective on 06/23/2020. Expiration date unspecified Effective:23-Jun-2020 Name Dates Details Immunization Registry [place] - Effective on 06/23/2020. Expiration date unspecified Effective:23-Jun-2020 Name Dates Details Immunization Registry [place] - Effective on 06/23/2020. Expiration date unspecified Effective:23-Jun-2020 Name Dates Details Immunization Registry [place] - Effective on 06/23/2020. Expiration date unspecified Effective:23-Jun-2020 Advance Directive Response Recorded Date/ Time Advance Directives No February 21, 2015 3:31pm Living Will No April 29 2:01pm Power of Pharmacy Consultant No April 29, 2021 2:01pm Name Dates Details Immunization Registry [place] - Effective on 06/23/2020. Expiration date unspecified Effective:23-Jun-2020 Name Dates Details Immunization Registry [place] - Effective on 06/23/2020. Expiration date unspecified Effective:23-Jun-2020 Name Dates Details Immunization Registry [place] - Effective on 06/23/2020. Expiration date unspecified Effective:23-Jun-2020 Name Dates Details Immunization Registry [place] - Effective on 06/23/2020. Expiration date unspecified Effective:23-Jun-2020 Advance Directive Response Recorded Date/ Time Living Will No April 29 2:01pm Power of Pharmacy Consultant No April 29, 2021 2:01pm Advance Directives No February 21, 2015 3:31pm Advance Directive Response Recorded Date/ Time Living Will No April 29 2:01pm Do you have a Healthcare Power of Pharmacy Consultant? 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, 2024 8:02am SCREENING September 21, 2024 7:1 2am Reason for Visit Admit Date [facility] Encounter for routine gynecological exam ination September 08, 2024 8:02am Chief Complaint Admit Date COUGH, SORE THROAT June 27, 2024 1:42pm 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, 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 8:02am SCREENING September 21, 2024 7:1 2am S/O- October 08, 2024 7:0 8am Additional Source Comments INFORMATION SOURCE (unrecogn ized section and content) DATE CREATED AUTHOR 07/15/2019 [facility] DATE CREATED AUTHOR AUTHOR'S ORGANIZ ATION 05/10/2020 [facility] DATE CREATED AUTHOR AUTHOR'S ORGANIZ ATION 10/26/2022 [facility] DATE CREATED AUTHOR AUTHOR'S ORGANIZ ATION 05/13/2023 [facility] DATE CREATED AUTHOR AUTHOR'S ORGANIZ ATION 07/22/2024 [facility] DATE CREATED AUTHOR AUTHOR'S ORGANIZ ATION 10/16/2024 [facility] Goals (unrecognized section and content) Goals [...] Referr ing Provider Active Ngozi Ortega NP, FOUNDRY MANAGER-C Attending Provider Active Team Status: Inactive Member Role Status Dates Dr. Gloria Bills DO Primary Care Provider Active Ngozi Ortega FOUNDRY MANAGER, FOUNDRY MANAGER-C Attending Provider, Referring Provider Active Team Status: Active Member Role Status Dates Dr. Gloria iBlls DO Primary Care Provider Active Team Status: Inactive Member Role Status Dates Dr. Gloria Bills DO Primary Care Provider Active Start: June 27, 2024 End: June 27, 2024 Dr. Gloria Bills DO Referring Provider Active Start: June 27, 2024 End: June 27, 2024 Cleveland Blunt FOUNDRY MANAGER, FOUNDRY MANAGER-C Attending Provider Active S tart: June 27, 2024 End: June 27, 2024 Team Status: Inactive Member Role Status Dates Dr. Gloria Bills DO Primary Care Provider Active Start: September 08, 2024 End: September 08, 2024 Dr. Gloria Bills DO Referring Provider Active Start: September 08, 2024 End: September 08, 2024 Ngozi Ortega FOUNDRY MANAGER, FOUNDRY MANAGER-C Attending Provider Active Start: September 08, 2024 End: September 08, 2024 Team Status: Inactive Member Role Status Dates Dr. Gloria Bills DO Primary Care Provider Active Start: September 21, 2024 End: September 21, 2024 Ngozi Ortega FOUNDRY MANAGER, FOUNDRY MANAGER-C Attending Provider Active Start: September 21, 2024 End: September 21, 2024 Ngozi Ortega FOUNDRY MANAGER, FOUNDRY MANAGER-C Referring Provider Active Start: September 21, 2024 [...] BE BASED ON THE PRIMARY CLINICAL RECORDS. [facility] [place]. provides no warranty or guarantee of the accuracy or completeness of information in this document.
--- NOTE | 2025-03-19 11:35 | RAD_ITS ---
PROCEDURE: CHEST PA AND LATERAL 03/19/2025 REASON FOR EXAM: CHEST PAIN TECHNIQUE: Procedure Code: RADCXR Modality: DX Procedure: CHEST PA AND LATERAL COMPARISON: None FINDINGS: The cardiomediastinal silhouette is normal. No consolidation in either lung. No evidence of pulmonary vascular congestion. No pleural effusion or pneumothorax. The bony thorax is intact. RAD/Chest PA and Lateral IMPRESSION: No acute process in the chest Reading Location: [id number]
--- NOTE | 2025-03-19 11:46 | EX.ED.DYSGE1 ---
HPI History of Present Illness Chief Complaint: Syncope Narrative Narrative: Patient is a 54-year-old female past medical history ulcerative colitis, psoriasis, hypertension, hypercholesteremia who presented to the emergency department as a rapid response for the chief complaint of syncope. According to patient she states that she has been having significant diarrhea as she is recently on antibiotic and has a history of C. difficile. She states that she called her yarn carrier and they advised her to bring a stool sample to the hospital to be tested for C. difficile. She states that while waiting to drop this off she had a syncopal episode. States that the boot and shoe laborer caught her and she did not hit her head she denies any blood thinner medications. Patient denies any blood in her stool or black stools. [facility] Medical History Hypertension Psoriasis Ulcerative colitis High cholesterol Home Medications ?Medication ?Instructions ?Recorded ?Last Taken ?Type multivitamin with folic acid 400 1 tab PO DAILY 02/21/15 Unknown History mcg tablet (Thera) omega-3 fatty acids 300 mg capsule 300 mg PO DAILY 02/21/15 Unknown History (Fish Oil) valsartan 160 1 tab PO DAILY 02/21/15 Unknown History mg-hydrochlorothiazide 25 mg tablet (Diovan HCT) ascorbic acid (vitamin C) 500 mg 500 mg PO DAILY 09/02/23 Unknown History capsule atorvastatin 40 mg tablet 40 mg PO QHS 09/02/23 Unknown History cholecalciferol (vitamin D3) 125 7,000 unit PO DAILY 09/02/23 Unknown History mcg (5,000 unit) capsule coenzyme Q10 75 mg capsule (Ultra 75 mg PO DAILY 09/02/23 Unknown History CoQ10) holy basil 1 tab PO DAILY 09/02/23 Unknown History infliximab-abda 100 mg intravenous mg .Route 09/02/23 Unknown History solution (Renflexis) magnesium oxide 400 mg PO DAILY 09/02/23 Unknown History potassium gluconate 595 mg (99 mg) 595 mg PO DAILY 09/02/23 Unknown History tablet thyrosol 1 tab PO DAILY 09/02/23 Unknown History vitamin E mixed 100 unit tablet 45 mg PO DAILY 09/02/23 Unknown History zinc gluconate 100 mg tablet 100 mg PO DAILY 09/02/23 Unknown History aspirin 81 mg tablet,delayed 81 mg PO QDAY 06/27/24 Unknown History release Allergy/AdvReac Type Severity Reaction Status Date / Time No Known Allergies Allergy Verified 03/19/25 10:31 Family History no significant family his Surgical History Status post hysteroscopy Social History Smoking Status: Never smoker Electronic Cigarette Use: not used second hand exposure: No alcohol intake: never substance use type: does not use en/uatsdin: Spiritism seatbelt use: always do you feel safe at home: Yes ROS ROS ED ROS Narrative Constitutional: Denies any fevers, chills, headaches Cardiovascular: Denies chest pain or palpitations Respiratory: Denies coughing wheezing shortness of breath Abdomen: Complains of diarrhea as noted above denies abdominal pain nausea vomiting : Denies any urinary symptoms Neurological: Denies numbness, weakness, tingling Musculoskeletal: Denies back pain Skin: Denies any rashes or lesions EXAM Physical Exam Narrative Exam Narrative: General: Patient was lying in bed rest comfortably did not appear to be in acute distress Head: Atraumatic, normocephalic Eyes: PERRL bilaterally, EOMI bilaterally, no conjunctival injection noted Neck: Soft, supple, trachea midline Cardiovascular: Regular rate and rhythm no murmurs gallops rubs are noted Respiratory: Clear to auscultation bilaterally no rales rhonchi or wheeze noted Abdomen: Soft, nondistended, no tenderness palpation Extremities: +5/5 strength noted in the bilateral upper and lower extremities, radial pulse +2/4 in the bilateral extremities, no pedal edema on exam Neurological: Patient following commands knew that she was at [facility] year is 2024. NIH of 0 GCS 15 Skin: Warm, dry, tact no rashes or lesions noted Const Vital Signs: 03/19/25 10:28 03/19/25 11:14 03/19/25 11:18 Temperature 98.0 F Temperature Source Oral Pulse Rate 74 Respiratory Rate 16 Respiratory Effort Normal Non-Labored Respiratory Pattern Normal Blood Pressure 83/60 L Blood Pressure Mean 67 Pulse Ox 100 Oxygen Delivery Method Room Air Room Air 03/19/25 11:20 03/19/25 12:00 03/19/25 12:28 Temperature 98 F 98 F Temperature Source Oral Oral Pulse Rate 74 76 76 Respiratory Rate 12 14 14 Respiratory Effort Respiratory Pattern Blood Pressure 96/58 L 111/71 111/71 Blood Pressure Mean 70 84 84 Pulse Ox 100 100 Oxygen Delivery Method Room Air Room Air 03/19/25 14:00 Temperature Temperature Source Pulse Rate 74 Respiratory Rate 13 Respiratory Effort Respiratory Pattern Blood Pressure 117/74 Blood Pressure Mean 88 Pulse Ox 100 Oxygen Delivery Method Room Air MDM MDM MDM Narrative Medical decision making narrative: Patient is a 54-year-old female who presented to the emergency department with a chief complaint of syncope. On the differential diagnose includes but limited to dehydration, anemia, cardiac arrhythmia, vasovagal syncope. Once workup is obtained reviewed she will be reevaluated. Patient be given IV fluids Patient's CBC reviewed showed no evidence leukocytosis white blood count 5.2, he was 12.6, plate count of 320. Patient INR normal at 1, PT of 13. Patient sodium is 134, potassium of 3.7, creatinine was 1.07. Patient's troponin was 14 with a delta troponin of 10. Patient's EKG reviewed which showed sinus rhythm with a rate of 69 bpm with a [place] interval normal at 122. Patient chest x-ray reviewed by myself and by radiology showed no acute cardiopulmonary processes. Patient's C. difficile test was negative. After IV fluids patient ambulated here in the emergency department tolerated this well if she states that she feels much better. Did discuss results with the patient and she would like to go home at this point time. She is advised to follow-up with her yarn carrier as well as her primary care physician. She is encouraged to push fluids for hydration. She is encouraged return with worsening symptoms or concerns. She is agreeable this plan as well as significant other at bedside all question concerns answered she was discharged home in stable condition. Lab Data Labs: Laboratory Results - last 24 hr 03/19/25 03/19/25 10:50 13:05 WBC 5.2 RBC 3.75 L Hgb 12.6 Hct 36.3 L MCV 96.8 MCH 33.6 H MCHC 34.7 RDW Std Deviation 49.4 H RDW Coeff of Ruperto 13.6 Plt Count 320 MPV 9.4 Immature Gran % (Auto) 0.200 Neut % (Auto) 60.1 Lymph % (Auto) 20.7 Weston % (Auto) 14.0 H Eos % (Auto) 4.4 Baso % (Auto) 0.6 Absolute Neuts (auto) 3.1 Absolute Lymphs (auto) 1.08 Nucleated RBC % 0 PT 13.0 INR 1.0 APTT 24.9 Sodium 134 Potassium 3.7 Chloride 96 L Carbon Dioxide 24.9 Anion Gap 13 BUN 19 Creatinine 1.07 Estim Creat Clear Calc 64.52 Est GFR (MDRD) Non-Af 61 BUN/Creatinine Ratio 18.1 Glucose 122 H Calcium 9.5 Troponin T High Sens 14 Troponin T Hi Sens 2 Hr 10 Radiography Diagnostic Testing: Clinical Impression(s) from Imaging Studies Chest X-Ray 03/19/25 11:35 IMPRESSION: No acute process in the chest [id number] T[facility] Chief Complaint: Syncope ED Provider: Ramakrishna Kinsey Dx/Rx/DC Orders Clinical Impression: Syncope, Diarrhea, History of Clostridium difficile infection, Ulcerative colitis Prescriptions: No Action atorvastatin 40 mg tablet 40 mg PO QHS Renflexis 100 mg recon soln .Route Rx Instructions: Take as prescribed vitamin E mixed 100 unit tablet 45 mg PO DAILY zinc gluconate 100 mg tablet 100 mg PO DAILY ascorbic acid (vitamin C) 500 mg capsule 500 mg PO DAILY potassium gluconate 595 mg (99 mg) tablet 595 mg PO DAILY magnesium oxide 400 mg magnesium capsule 400 mg PO DAILY holy basil 1 tab PO DAILY thyrosol 1 tab PO DAILY Ultra CoQ10 75 mg capsule 75 mg PO DAILY aspirin 81 mg tablet,delayed release (DR/EC) 81 mg PO QDAY valsartan-hydrochlorothiazide [Diovan HCT] 1 TABLET tablet 1 tab PO DAILY omega-3 fatty acids [Fish Oil] 300 MG capsule 300 mg PO DAILY multivitamin with folic acid [Thera] 1 TABLET tablet 1 tab PO DAILY cholecalciferol (vitamin D3) 125 mcg (5,000 unit) capsule 7,000 unit PO DAILY Primary Care Provider: Gloria Bills Referrals: Gloria Bills DO [Primary Care Provider] - Activity Restrictions/Additional Instructions: Your blood work did not show any acute findings. Your EKG was normal. Your C. difficile was negative. Push plenty of fluids as we discussed here. Follow-up your yarn carrier and your primary care physician return with worsening symptoms or any other concerns. Print Language: Luxembourgish Disposition Disposition: Home, Self Care
[2025-03-19 13:29] LABS: Troponin T High Sens 2 HR 10 ng/L (<=14)
== END 2025-03-19 15:10 | disposition home or self-care (01) ==
PROVIDERS: Emergency Provider Emergency Medicine; PCP Internal Medicine; Visit Provider Emergency Medicine
DX: R55 Syncope and collapse (principal); K51.90 Ulcerative colitis, unspecified, without complications; R19.7 Diarrhea, unspecified; I10 Essential (primary) hypertension; E78.00 Pure hypercholesterolemia, unspecified; Z79.82 Long term (current) use of aspirin; Z79.620 Long term (current) use of immunosuppressive biologic; Z79.899 Other long term (current) drug therapy; Z86.19 Personal history of other infectious and parasitic diseases
CPT/HCPCS: 71046; 80048; 84484; 85025; 85610; 85730; 87493; 87506; 93005; 96360; 96361; 99284; A4216

== ENCOUNTER → 2025-03-19 | Outpatient (CLI) | payer OTHER, SELFPAY ==
--- OUTSIDE RECORDS SUMMARY | 2025-03-19 09:49 | XMS RPT_ITS | CCD ---
Author Organization [facility] CliniSymd Care Team Providers Care Precipitate Washer Name Role Phone Salena Pak MD Unavailable Gloria Bills Unavailable Messenger, Indira Unavailable Unavailable Jesse, Noris Unavailable Unavailable Unavailable Unavailable Gloria Bills Unavailable Slarb, Samantha Unavailable Unavailable Messenger, Indira Unavailable Unavailable Jesse, Noris Unavailable Unavailable Unavailable Unavailable SHANTAL ALATORRE Admitting Unavailable SHANTAL ALATORRE Attending Unavailable SHANTAL ALATORRE Primary Care Unavailable Gravius, Mayuri Unavailable Unavailable Messenger, Indira Unavailable Unavailable Gravius, Mayuri Unavailable Unavailable Sanju DO Gloria Unavailable Gravius FIELD MARKETING MANAGER, Mayuri Unavailable Unavailable Jayy DONGNGisela Unavailable Unavailable Messenger RAMSES, Indira Unavailable Unavailable Jesse, Noris Unavailable Unavailable Unavailable Unavailable Ady COLORIST, Kady Unavailable Unavailable Sanju Mukund TOBAReen Unavailable Donell FIELD MARKETING MANAGER, Kayela Unavailable Unavailable Slaluisito CRUZ, Samantha Unavailable Unavailable Gloria Bills DO Attending Unavailable Gloria Bills DO Referring Unavailable Gloria Bills DO Consulting Unavailable Ta CHARGE ACCOUNT IDENTIFICATION CLERK, Aidee Unavailable Candace Hess MA Unavailable Unavailable Carter DONGN, ANDREA Unavailable Unavailable DR JUAN JOSÉ WEINER MD Attending UnavailDr. Gloria Franks Primary Care Provider [phone] Dr. Gloria Bills Referring Provider Jordan ACADEMIC SUPPORT SPECIALIST, ACADEMIC SUPPORT SPECIALISTCiriloC Ngozi Attending Provider DR JUAN JOSÉ WEINER MD Attending UnavailDr. Gloria Franks DO Primary Care Provider Dr. Gloria Bills DO Referring Provider [phone] Jose Raul ACADEMIC SUPPORT SPECIALIST-C, Cleveland Mishra Attending Provider Jordan ACADEMIC SUPPORT SPECIALIST-CNgozi Attending Provider Jordan ACADEMIC SUPPORT SPECIALIST-CNgozi Referring Provider Viv ACKERMAN, Dr. Can Attending Provider Viv ACKERMAN, Dr. Can Referring Provider Sanju, Gloria Primary Care Unavailable Sanju, Gloria Attending Unavailable Sanju, Gloria Referring Unavailable Jabour, Vincent Referring Unavailable Sanju, Gloria Primary Care Unavailable Jabour, Juan José Attending Unavailable Jabour, Juan José Attending Unavailable Sanju, Gloria Primary Care Unavailable Jabour, Vincent Referring Unavailable Sanju, Gloria Primary Care Unavailable Farhantmann, Kane Attending Unavailabl e April, Kane Referring Unavailabl e Ngozi Ortega Attending Unavailable Jordan, Ngozi Referring Unavailable Sanju, Gloria Primary Care Unavailable Jabour, Juan José Attending Unavailable Jabour, Juan José Referring Unavailable Sanju, Gloria Primary Care Unavailable Sanju, Gloria Primary Care Unavailable Jabour, Juan José Attending Unavailable Jabour, Osmelent Referring Unavailable Sanju, Gloria Primary Care Unavailable JordanNgozi Attending Unavailable Sanju, Gloria Referring Unavailable Sanju, Gloria Primary Care Unavailable Jose Raul MCDANIEL, Cleveland Mishra Attending Unavailable Sanju, Gloria Referring Unavailable Sanju, Gloria Primary Care Unavailable Armin Herrera Attending Unavailable Sanju, Gloria Referring Unavailable Jabour, Vincent Referring Unavailable Jabour, Juan José Attending Unavailable Sanju, Gloria Primary Care Unavailable Medications Current Medications Medication Drug Class(es) Dates Sig (Normalized) Sig (Original) ascorbic acid 500 mg oral capsule (3 sources) Vitamin C Start: 09-02-2023 take 1 capsule by mouth once daily Ascorbic Acid (Vitamin C) 500 mg capsule Active 500 mg PO DAILY September 02, 2023 1:00am aspirin 81 mg delayed release oral tablet (2 sources) Platelet Aggregation Inhibitor, Nonsteroidal Anti-inflammatory Drug Start: 06-27-2024 take 1 tablet by mouth once daily Aspirin 81 mg tablet,delayed release (DR/EC) Active 81 mg PO daily June 27, 2024 1:00am atorvastatin 40 mg oral tablet (20 sources) HMG-CoA Reductase Inhibitor Start: 09-02-2023 take 1 tablet by mouth at bedtime Atorvastatin 40 mg tablet Active 40 mg PO AT BEDTIME September 02, 2023 1:00am Start: 10-25-2022 atorvastatin 4 0 mg oral tablet 1 tab Tablet qd for 90 days Quantity: 90 {Tablet} Refills: 2 Ordered: 25-Oct-2022 Gloria Bills DO, DO, Kathleen Start : 25-Oct-2022 Active Comments: Mail order. Start: 06-17-2012 End: 09-02-2023 take 1 tablet by mouth at bedtime Atorvastatin 20 MG tablet Discontinued 20 mg PO AT BEDTIME February 21, 2015 12:00am September 02, 2023 3:20pm Comment on above: Mail order. cholecalciferol 0.125 mg oral capsule (20 sources) Vitamin D Start: End: take 1 capsule by mouth once daily Cholecalciferol (Vitamin D3) 125 mcg (5,000 unit) capsule Active 7000 U PO DAILY September 02, 2023 3:21pm Start: 02-21-2015 End: 09-02-2023 Cholecalciferol (Vitamin D3) 5,000 UNIT capsule Discontinued 0 U PO DAILY February 21, 2015 12:00am September 02, 2023 3:25pm Start: 06-16-2012 take 1 capsule by mo [facility] once daily VITAMIN D 2000 UNIT TABS One capsule by mouth daily CHOLECALCIFEROL [id number] Cornelia Velez RN Start: 05-29-2012 End: 05-24-2013 take 1 capsule by mouth once daily VITAMIN D3, 2000UNIT (Oral Capsule) 1 Capsule qd for 360 days Refills: 0 Ordered: 06-Oct-2013 Indira Valdes RN Start : 29-May-2012 End : 24-May-2013 Inactive take 1 [IU] by mouth once Vitami n D 2000 UNIT Oral Capsule oneDAILY (2000 UNIT) Active holy basil (15 sources) Start: 09-02-2023 holy basil Act иван 1 {tbl} PO DAILY September 02, 2023 1:00am Start: 09-02-2023 take 1 tablet by mouth once da lor holy basil Active 1 TABLET PO DAILY September 02, 2023 1:00am holy basil 1 john ly Active inFLIXimab-abda 100 mg injection (3 sources) Tumor Necrosis Factor Sid Start: 09-02-2023 Infliximab-Abda (Renflexis) 100 mg recon soln Active mg .Route September 02, 2023 1:00am Take as prescribed magnesium oxide 400 mg oral capsule (3 sources) Start: 09-02-2023 take 1 capsule by mouth once daily Magnesium Oxide 400 mg magnesium capsule Active 400 mg PO DAILY September 02, 2023 1:00am Multivitamin With Folic Acid (Thera) 1 TABLET tablet (10 sources) Start: 02-21-2015 take 1 tablet by mouth once daily Multivitamin With Folic Acid (Thera) 1 TABLET tablet Active 1 {tbl} PO DAILY February 21, 2015 12:00am Start: 02-21-2015 take 1 tablet by simon th once daily Multivitamin With Folic Acid (Thera) 1 TABLET tablet Active 1 TABLET PO DAILY February 21, 2015 12:00am Start: 02-21-2015 take 1 tablet by simon th once daily Multivitamin With Folic Acid (Thera) 1 TABLET tablet Active 1 TABLET PO DAILY February 20, 2015 11:00pm Ferrum-3 Fatty Acids (Fish Oil) 300 MG capsule (10 sources) Start: 02-21-2015 take 1 capsule by mouth once daily Ferrum-3 Fatty Acids (Fish Oil) 300 MG capsule Active 300 mg PO DAILY February 21, 2015 12:00am Start: 02-21-2015 take 1 capsule by mouth once d aily Ferrum-3 Fatty Acids (Fish Oil) 300 MG capsule Active 300 MG PO DAILY February 21, 2015 12:00am Start: 02-21-2015 take 1 capsule by mouth once d aily Ferrum-3 Fatty Acids (Fish Oil) 300 MG capsule Active 300 MG PO DAILY February 20, 2015 11:00pm potassium gluconate 2.5 meq oral tablet (13 sources) Start: 09-02-2023 take 1 tablet by mouth once daily Potassium Gluconate 595 mg (99 mg) tablet Active 595 mg PO DAILY September 02, 2023 1:00am take 1 tablet by mouth once kylee y Potassium 99 MG Oral Tablet 1 daily (99 MG) Active thyrosol (15 sources) Start: 09-02-2023 thyrosol Activ e 1 {tbl} PO DAILY September 02, 2023 1:00am Start: 09-02-2023 take 1 tablet by mouth once da lor thyrosol Active 1 TABLET PO DAILY September 02, 2023 1:00am thyrosol 1 daily Active ubidecarenone 75 mg oral cap jus (3 sources) Start: 09-02-2023 Coenzyme Q10 ( Ultra Coq10) 75 mg capsule Active 75 mg PO DAILY September 02, 2023 1:00am vitamin e 100 unt oral table t (20 sources) Start: 09-02-2023 Vitamin E Mixe d 100 unit tablet Active 45 mg PO DAILY September 02, 2023 1:00am Start: 09-02-2023 take 45 mg by mouth once daily Vitamin E Mixed Active 45 MG PO DAILY September 02, 2023 1:00am Start: 06-03-2017 RA VITAMIN E O IL VITAMIN E OIL [id number] Salena Pak MD take 4 capsules by out once daily Vitamin E 100 UNIT Oral Capsule 4 qd (100 UNIT) Active zinc gluconate 100 mg oral tablet (20 sources) Start: 09-02-2023 take 1 tablet by mouth once daily Zinc Gluconate 100 mg tablet Active 100 mg PO DAILY September 02, 2023 1:00am Zinc 30 MG Oral Tablet (30 MG) Active Completed/Discontinued Medications Medication Drug Class(es) Dates Sig (Normalized) Sig (Original) acetaminophen 325 mg / HYDROcodone bitartrate 5 mg oral tablet (10 sources) Opioid Agonist Start: 04-29-2021 End: 09-02-2023 Hydrocodone-Acetami nophen 1 TABLET tablet Discontinued 1 {tbl} PO EVERY 4 HOURS NEEDED as needed for Pain 04 14April 29, 2021 September 02, 2023 3:21pm Start: 04-29-2021 End: 09-02-2023 take 1 tablet by mouth every four hours as needed Hydrocodone-Acetaminophen Discontinued 1 TABLET PO EVERY 4 HOURS NEEDED 04 14April 29, 2021 September 02, 2023 3:21pm acetaminophen 325 mg / oxyCODONE hydrochloride 5 mg oral tablet (10 sources) Opioid Agonist Start: 02-28-2015 End: 09-02-2023 Oxycodone-Acetaminophen 1 TABLET tablet Discontinued 1 - 2 {tbl} PO EVERY 4 HOURS NEEDED as needed for Abdominal Pain February 28, 2015 12:00am September 02, 2023 3:22pm Start: 02-28-2015 End: 09-02-2023 take 1 tablet by mouth every four hours as needed Oxycodone-Acetaminophen Discontinued 1 - 2 TABLET PO EVERY 4 HOURS NEEDED February 28, 2015 12:00am September 02, 2023 3:22pm azaTHIOprine 50 mg oral tablet (20 sources) Purine Antimetabolite take 1 tablet by mouth once daily azaTHIOprine 50 MG Oral Tablet 1 tab daily (50 MG) Inactive Comments: take 2.5 mg by mouth once daily azaTHIOprine 50 MG Oral Tablet 2.5mg daily (50 MG) Active Comments: Comment on above: azithromycin 250 mg oral tablet (2 sources) Macrolide Antimicrobial Start: 06-27-20 End: 09-08-19 Azithromycin (Zithromax Z-Mickey) 250 mg tablet Discontinued 0 PO .COMPLEX June 27, 2024 1:00am September 08, 2024 9:11am For 250 mg dose pack: take 500 mg today (day 1), then 250 mg for 4 days (days 2-5) PO balsalazide disodium 750 mg oral capsule (20 sources) Aminosalicylate Start: 02-22-20 End: 09-08-19 take 1 capsule by mouth twice daily Balsalazide 750 MG capsule Discontinued 6.75 g PO TWICE A DAY February 21, 2015 12:00am September 08, 2024 9:11am Start: 02-21-2015 take 6.75 g by mouth twice john ly Balsalazide Active 6.75 GM PO TWICE A DAY February 21, 2015 12:00am Start: 06-17-2012 End: 01-19-2021 take 3 capsules by mouth three times daily Balsalazide Disodium 750 MG Oral Capsule 3 caps tid for 0 days Refills: 0 Ordered: 19-Jan-2021 Mayuri Hwang CMA Start : 06-Oct-2013 End : 19-Jan-2021 Inactive Comments: Dr. Gallagher Comment on above: Dr. Gallagher 24 hr budesonide 9 mg extended release oral tablet (20 sources) Corticosteroid take 1 tablet by mouth every twenty-four hours Uceris 9 MG Oral Tablet Extended Release 24 Hour daily (9 MG) Inactive Calcium (6 sources) Phosphate Binder, Calcium take 1 tablet by mouth once daily Calcium 600 1500 (600 Ca) MG Oral Tablet ONE DAILY (1500 (600 Ca) MG) Active calcium carbonate 1500 mg oral tablet (20 sources) Start: 013 take 2 tablets by mouth once daily CALCIUM CARBONATE 600 MG TABS Two tablets by mouth daily CALCIUM CARBONATE [id number] Yonathan Reed MD calcium citrate 1500 mg / cholecalciferol 200 unt oral tablet (10 sources) Vitamin D Start: 015 End: 025 Calcium Citrate-Vitamin D3 1 EACH tablet Discontinued 1 NMA PO DAILY February 21, 2015 12:00am September 08, 2024 9:11am Start: 02-21-2015 Calcium Citrat e-Vitamin D3 Active 1 EACH PO DAILY February 21, 2015 12:00am COD LIVER OIL CAPS (4 sources) Start: 06-17-2012 End: 06-03-2017 take 2 tablets by mouth once daily COD LIVER OIL CAPS Two tablets by mouth daily COD LIVER OIL CAPS [id number] Salena Pak MD Start: 06-17-2012 take 2 tablets by mo [facility] once daily COD LIVER OIL CAPS Two tablets by mouth daily COD LIVER OIL CAPS [id number] Yonathan Reed MD EMOQUETTE, 0.15-30MG-MCG (Oral Tablet) (20 sources) Progestin, Estrogen Start: 05-29-2012 End: 05-29-2012 take 1 tablet by mouth once daily EMOQUETTE, 0.15-30MG-MCG (Oral Tablet) 1 (one) Tablet qd for 90 days Refills: 0 Ordered: 29-May-2012 Gloria Bills DO, DO, Kathleen Start : 29-May-2012 End : 29-May-2012 Discontinued Comments: Mail order. Comment on above: Mail order. EMOQUETTE, 0.15-30MG-MCG (Oral Tablet) (1 source) Start: 05-29-2012 End: 05-29-2012 take 1 tablet by mouth once daily EMOQUETTE, 0.15-30MG-MCG (Oral Tablet) 1 (one) Tablet qd for 90 days Refills: 0 Ordered: 29-May-2012 Sanju Gloria DO, Kathleen Start : 29-May-2012 End : 29-May-2012 Discontinued fish oil (20 sources) Start: 06-17-2012 take 1 capsule by mouth once daily FISH OIL CAPS One capsule by mouth daily OMEGA-3 FATTY ACIDS CAPS [id number] Yonathan Reed MD take 1 capsule by mouth once john ly Fish Oil 1200 MG Oral Capsule ONE DAILY (1200 MG) Active hydroCHLOROthiazide 12.5 mg / valsartan 160 mg oral tablet (20 sources) Thiazide Diuretic, Angiotensin 2 Receptor Sid Start: 04-24-2023 valsartan-hydrochlorothiazid e 160-12.5 mg oral tablet 1 tab Tablet daily for 90 days Quantity: 90 {Tablet} Refills: 3 Ordered: 24-Apr-2023 Gloria Bills DO, DO, Kathleen Start : 24-Apr-2023 Active Comments: Mail order. Start: 03-04-2023 valsartan-hydr ochlorothiazide 80-12.5 mg oral tablet 1 tab Tablet daily for 90 days Quantity: 90 {Tablet} Refills: 3 Ordered: 04-Mar-2023 Aidee Chappell CNP Start : 04-Mar-2023 Active Comments: Mail order. Start: 02-21-2015 take 1 tablet by simon th once daily Valsartan-Hydrochlorothiazide (Diovan Hc t 160-25 Mg Tablet) 1 TABLET tablet Active 1 {tbl} PO DAILY February 21, 2015 12:00am Start: 05-22-2012 End: 09-25-2012 take 1 tablet by mouth once daily DIOVAN HCT, 160-25MG (Oral Tablet) 1 (on e) Tablet qd for 90 days Refills: 0 Ordered: 25-Sep-2012 Indira Valdes RN Start : 22-May-2012 End : 25-Sep-2012 Inactive Comments: Mail order. Comment on above: Mail order. ibuprofen 800 mg oral tablet (10 sources) Nonsteroidal Anti-inflammatory Drug Start: 5 End: 4 take 1 tablet by mouth three times daily as needed for pain Ibuprofen (Motrin) 800 MG tablet Discontinued 800 mg PO 3 TIMES DAILY NEEDED as needed for Abdominal Pain February 28, 2015 12:00am September 02, 2023 3:21pm Iron (20 sources) take 1 mg by mouth once daily Iron 15 MG Oral Tablet daily (15 MG) Inactive take 1 mg by mouth once daily Ir on 15 MG Oral Tablet daily (15 MG) Active magnesium citrate 200 mg ora l tablet (12 sources) take 1 mg by mouth t wice daily Magnesium Citrate 200 MG Oral Tablet Two times a day. (200 MG) Active magnesium glicinate (12 sources) magnesium glicin ate 360mg daily Inactive magnesium glicin ate 360mg daily Active mesalamine 66.7 mg/ml enema (20 sources) Aminosalicylate Mesalamine 4 GM Rectal Enema 1 qhs (4 GM) Inactive metoprolol tartrate 50 mg oral tablet (4 sources) beta-Adrenergic Sid Start: 06-17-20 12 End: 09-29-19 13 take 1 tablet by mouth once daily in the evening, then take 1 tablet by mouth in the morning METOPROLOL TARTRATE 50 MG TABS One tablet by mouth at 6 pm day before the procedure and one at 7 am morning of procedure METOPROLOL TARTRATE [id number] Yonathan Reed MD MULTIPLE VITAMIN (2 sources) Start: 06-17-20 take 1 tablet by mouth once daily MULTIVITAMINS TABS One tablet by mouth daily MULTIPLE VITAMIN [id number] Yonathan Reed MD Multivitamin Adult (1 source) take 1 tablet by mouth once daily Multivitamin Adult Oral Tablet Chewable ONE DAILY Active Multivitamin Adult Oral Tablet Chewable (20 sources) take 1 tablet by mouth once daily Multivitamin Adult Oral Tablet Chewable ONE DAILY Active omega-3 acid ethyl esters (custodial) 1200 mg oral capsule (4 sources) take 1 capsule by mouth once daily Fish Oil 1200 MG Oral Capsule ONE DAILY (1200 MG) Active ondansetron 4 mg oral tablet (5 sources) Serotonin-3 Receptor Antagonist Start: 03-04-20 23 End: 04-24-20 23 take 1 tablet by mouth every eight hours as needed for nausea ondansetron HCL 4 mg oral tablet 1 (one) tablet every 8 hours as needed for nausea for 0 days Quantity: 30 {Tablet} Refills: 0 Ordered: 24-Apr-2023 ANDREA Machado LPN Start : 04-Mar-2023 End : 24-Apr-2023 Inactive Comments: Medication taken as needed. Comment on above: Medication taken as needed. polyethylene glycol 3350 38082 mg powder for oral solution (15 sources) Osmotic Laxative Start: 09-02-19 End: 06-27-20 Polyethylene Glycol 3350 (Miralax) 17 gram/dose powder Discontinued 4 g PO DAILY September 02, 2023 1:00am June 27, 2024 2:55pm take 17 g by mouth o nce daily in the evening MiraLax 17 GM/SCOOP Oral Powder Once a d ay in the evening. (17 GM/SCOOP) Active potassium 99 mg extended release oral tablet (12 sources) take 1 tablet by simon th once daily Potassium 99 MG Oral Tablet 1 daily (99 MG) Active predniSONE 10 mg oral tablet (20 sources) take 2 tablets by mo uth once daily PredniSONE 10 MG Oral Tablet 2 qd (10 MG) Inactive Probiotic (13 sources) Probiotic daily Inactive Probiotic daily Active progesterone 100 mg oral capsule (20 sources) Progesterone Start: 06-02-2015 End: 05-09-2017 take 3 capsules by mouth once daily at bedtime PROGESTERONE, 100MG (Oral Capsule) 3 (three) Capsule Capsule qhs for 30 days Refills: 0 Ordered: 09-May-2017 Gloria Bills DO, DO, Kathleen Start : 02-Jun-2015 End : 09-May-2017 Discontinued Comments: This order discontinued per [facility]. Comment on above: This order discontin ued per [facility]. vancomycin 125 mg oral capsule (20 sources) Glycopeptide Antibacterial take 1 mg by mouth four times daily Vancomycin HCl 125 MG Oral Capsule qid (125 MG) Inactive vedolizumab 300 mg injection (20 sources) Integrin Receptor Antagonist Entyvio 300 MG Intravenous Solution Reconstituted IV infusion (300 MG) Active Comments: will be every 8 wks is on loading dose now Comment on above: will be every 8 wks is on loading dose now zinc, chelated 30 mg oral tablet (1 source) Zinc 30 MG Oral Tablet (30 MG) Active Problems Active Problems Problem Classification Problem Date Documented Da te Episodic/Chronic Administrative/social admission (1 source) Medical examinations/reports status; Translations: [Physical exam WITHOUT abnormal findings (Renamed from Encounter for routine adult health examination without abnormal findings)] 12-19-2017 Episodic Cardiac dysrhythmias (20 sources) Palpitations; Translations: [Palpitations] Onset: 2 Resolved: 0 06-16-2012 Episodic Conditions associated with dizziness or vertigo (10 sources) Dizziness; Translations: [Dizziness] Resolved: 3 03-04-2023 Episodic Disorders of lipid metabolism (20 sources) Hyperlipidemia; Translations: [Hyperlipidemia, unspecified] Onset: 2 06-16-2012 Chronic Essential hypertension (20 sources) Hypertensive disorder; Translations: [Benign hypertension] Onset: 2 06-16-2012 Chronic Comment on above: having dizziness, we will try reducing the med and see if resolves. monitor BP at home. having dizziness, we will try reducing the med and see if resolves. monitor BP at home.f/u closelyBP low but she tends to trend that direction. differential allergies, cardiogenic, vertigo, hypotension Fever of unknown origin (2 sources) Fever, unspecified; Translations: [Fever, unspecified] Onset: 0 Episodic Fracture of lower limb (10 sources) Closed fracture of distal fibula ; Translations: [Other fracture of upper and lower end of left fibula, initial encounter for closed fracture] 05-07-2021 Episodic Immunizations and screening for infectious disease (20 sources) Need for prophylactic vaccination and inoculation against influenza; Translations: [Other and unspecified nonspecific immunological findings] Onset: 0 Resolved: 3 05-29-2018 Episodic Intestinal infection (20 sources) Clostridium difficile colitis; Translations: [C. difficile colitis] Resolved: 9 05-29-2018 Episodic Malaise and fatigue (20 sources) Fatigue; Translations: [FATIGUE] Onset: 2 06-16-2012 Episodic Comment on above: lil bit of autoimmun ity right now Menstrual disorders (7 sources) Irregular periods; Translations: [Irregular menstruation, unspecified] 02-28-2015 Chronic Nausea and vomiting (10 sources) Nausea; Translations: [Nausea] Resolved: 3 03-04-2023 Episodic Nonmalignant breast conditions (20 sources) Breast lump; Translations: [Breast lump in female] Onset: 7 Resolved: 3 06-03-2017 Episodic Nonspecific chest pain (20 sources) Chest pain, unspecified; Translations: [Chest pain] Onset: 2 Resolved: 3 06-16-2012 Episodic Nutritional deficiencies (20 sources) Vitamin D deficiency; Translations: [Vitamin D deficiency] 05-29-2018 Chronic Other aftercare (20 sources) Patient encounter status; Translations: [Therapeutic drug monitoring] 01-17-2022 Episodic Comment on above: do in 07-04-- next o v in 2022- and on jerry /hctz Other circulatory disease (20 sources) Elevated blood pressure; Translations: [Elevated blood pressure reading] Resolved: 3 05-05-2019 Episodic Other circulatory disease (20 sources) Abdominal pulsatile mass; Translations: [Pulsatile abdominal mass] Resolved: 3 05-05-2019 Episodic Other connective tissue disease (12 sources) Pain of right calf; Translations: [Right calf pain] Resolved: 3 11-26-2022 Episodic Comment on above: VDU r/o DVT. if neg, then symptom management.unclear etiology. no recent travel or prolonged sitting outside her norm. 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 Other gastrointestinal disorders (20 sources) Abdominal bloating; Translations: [Bloating] Resolved: 0 05-05-2019 Episodic Other hematologic conditions (20 sources) Macrocytosis; Translations: [Macrocytosis] 01-19-2021 Chronic Other inflammatory condition of skin (16 sources) Psoriasis; Translations: [Psoriasis] 10-25-2022 Chronic Other liver diseases (20 sources) Abnormal levels of other serum enzymes; Translations: [Elevated liver enzymes level] Resolved: 3 05-29-2018 Episodic Other nutritional; endocrine; and metabolic disorders (6 sources) Body mass index 30+ - obesity; Translations: [BMI 31.0-31.9,adult] 04-24-2023 Chronic Other nutritional; endocrine; and metabolic disorders (20 sources) Weight gain; Translations: [Weight gain] Resolved: 3 05-05-2019 Episodic Other nutritional; endocrine; and metabolic disorders (10 sources) Body mass index 25-29 - overweight; Translations: [BMI 26.0-26.9,adult] Resolved: 9 01-19-2021 Episodic Other nutritional; endocrine; and metabolic disorders (20 sources) Overweight in adulthood with body mass index of 25 or more but less than 30; Translations: [BMI 28.0-28.9,adult] Resolved: 3 01-17-2022 Episodic Other upper respiratory infections (5 sources) Upper respiratory infection; Translations: [Acute upper respiratory infection, unspecified] Onset: 5 07-04-2024 Episodic Regional enteritis and ulcerative colitis (20 sources) Ulcerative colitis; Translations: [Ulcerative colitis] Onset: 3 Resolved: 3 05-29-2018 Chronic Comment on above: last scope 2013 discussed autoimmune diet -- balance digestion with prosymbitoc and whole food fiber last scope 2019 Residual codes; unclassified (5 sources) Needs influenza immunization; Translations: [Need for prophylactic vaccination and inoculation against influenza] 11-04-2016 Episodic Residual codes; unclassified (7 sources) Vaccination required; Translations: [Vaccine for [id number] tussis with poliomyelitis] 05-05-2019 Episodic Residual codes; unclassified (20 sources) Body mass index 20-24 - normal; Translations: [BMI 21.0-21.9, adult] Resolved: 3 01-19-2021 Episodic Residual codes; unclassified (20 sources) Influenza vaccination declined; Translations: [Influenza vaccination declined (Renamed from Refused influenza vaccine)] 06-23-2020 Episodic Comment on above: getting it at work t ues Residual codes; unclassified (20 sources) Non-smoker; Translations: [Non-smoker] 01-19-2021 Episodic Residual codes; unclassified (16 sources) Postmenopausal state; Translations: [Post-menopausal] 10-25-2022 Episodic Unclassified (20 sources) Electrocardiogram abnormal; Translations: [Cardiovascular stress test abnormal] Onset: 2 Resolved: 3 06-17-2012 Episodic Comment on above: positive ELVA and COREMAKER MACHINE has dx UC has scopes up to date Dr Giles and does with her Unclassified (20 sources) Family history of ischemic heart disease; Translations: [Needs influenza immunization] Onset: 2 06-16-2012 Episodic Unclassified (16 sources) SHINGLES,NEED FOR PROPHYLACTIC VACCINATION AND INOCULATION AGAINST (V05.8) Unclassified (20 sources) Hypertension, benign Unclassified (20 sources) Unclassified (20 sources) Body mass index (BMI) 23.0-23.9, adult Unclassified (20 sources) Non-smoker; Translations: [Non-smoker] 05-29-2018 Unclassified (20 sources) Elevated liver enzymes (790.4) Unclassified (20 sources) Hypertension,benign(40 1.1) Unclassified (20 sources) BMI 22.0-22.9, adult Unclassified (16 sources) C. difficile colitis Unclassified (15 sources) Influenza vaccination declined (Renamed from Refused influenza vaccine) Unclassified (10 sources) BMI 23.0-23.9, adult Unclassified (10 sources) Breast lump in female Unclassified (6 sources) BMI 28.0-28.9,adult Unclassified (2 sources) Therapeutic drug monitoring Past or Other Problems Problem Classification Problem Date Documented Da te Episodic/Chronic Coronary atherosclerosis and other heart disease (17 sources) Coronary atherosclerosis and other heart disease Other ear and sense organ disorders (1 source) Pulsatile tinnitus, left ear; Translations: [Pulsatile tinnitus, left ear] Onset: 01-29-2024 Episodic Other ear and sense organ disorders (1 source) Pulsatile tinnitus, bilateral; Translations: [Pulsatile tinnitus, bilateral] Onset: 12-12-2023 Episodic Other gastrointestinal disorders (2 sources) H/O: ulcerative colitis; Translations: [Ulcerative Colitis] 05-29-2018 Episodic Other nutritional; endocrine; and metabolic disorders (4 sources) Body mass index 25-29 - overweight; Translations: [BMI 26.0-26.9,adult] Resolved: 05-05-2019 05-05-2019 Chronic Unclassified (16 sources) Physical exam WITHOUT abnormal findings (Renamed from Encounter for routine adult health examination without abnormal findings) Unclassified (6 sources) Pregnancies (); Translations: [Pregnancies ()] 05-29-2018 Comment on above: 0. Unclassified (20 sources) Patient encounter status; Translations: [Physical exam] 05-29-2018 Comment on above: has dx UC has scopes up to date Dr Giles and does with her Unclassified (16 sources) BMI 21.0-21.9, adult Unclassified (7 sources) Influenza vaccination declined; Translations: [Influenza vaccination declined (Renamed from Refused influenza vaccine)] 05-29-2018 Comment on above: getting it at work t ues Unclassified (16 sources) Abnormal Blood Chemistry (790.6) Unclassified (16 sources) ELVA positive (795.79) Unclassified (1 source) Requires vaccination; Translations: [Vaccine for [id number]-[id number] rtussis with poliomyelitis] 05-29-2018 Unclassified (16 sources) PREVENTION OF TETANUS (V03.7) Unclassified (15 sources) Body mass index 20-24 - normal; Translations: [BMI 22.0-22.9, adult] 05-05-2019 Unclassified (5 sources) Non-smoker; Translations: [Non-smoker] 05-05-2019 Unclassified (13 sources) Pulsatile abdominal mass Unclassified (13 sources) Bloating Unclassified (14 sources) BMI 26.0-26.9,adult Unclassified (14 sources) Encounter for annual general medical examination with abnormal findings in adult Unclassified (14 sources) Colon cancer screening (Renamed from Encounter for screening for malignant neoplasm of colon) Unclassified (14 sources) Encounter for screening mammogram for breast cancer (Renamed from Encounter for screening mammogram for malignant neoplasm of breast) Unclassified (14 sources) Weight gain Unclassified (14 sources) Elevated blood pressure reading Unclassified (15 sources) Physical exam Unclassified (20 sources) Pregnancies (); Translations: [Pregnancies ()] 01-19-2021 Comment on above: 0. Results Test Name Value Interpretation Reference Range Facility Absolute neutrophil countOrd ered By: Juan José Weiner on 10-08-2024 Neutrophils (Bld) [#/Vol] 1.7 10*3/uL Low 2.0-7.7 [facility] Basophil percentageOrdered B y: Juan José Weiner on 10-08-2024 Basophils/100 WBC (Bld) 1.0 % 0-1 [facility] Bilirubin directOrdered By: Juan José Weiner on 10-08-2024 Bilirubin.direct [Mass/Vol] 0.18 mg/dL 0.00-0.30 [facility] Bilirubin, totalOrdered By: Juan José Weiner on 10-08-2024 Bilirubin [Mass/Vol] 0.33 mg/dL 0.00-1.30 [facility] CBC W/Diff, Automatedon 03-2 Absolute Lymph 2.70 X10 3/uL Normal 0.83-4.51 [facility] Comment on above: Performed By: #### L 100.0100, L500.3400 #### [facility] [address] [place], [address] Absolute Neut 1.7 X10 3/uL Low 2.0-7.7 [facility] Comment on above: Performed By: #### L 100.0100, L500.3400 #### [facility] [address] [place], [address] Basophils/100 WBC (Bld) 1.0 % Normal 0-1 [facility] Comment on above: Performed By: #### L 100.0100, L500.3400 #### [facility] [address] [place], [address] Eosinophils/100 WBC (Bld) 4.0 % Normal 0-5 [facility] Comment on above: Performed By: #### L 100.0100, L500.3400 #### [facility] [address] [place], [address] Erythrocyte distribution width (RBC) [Ratio] 13.8 % Normal 11.6-14.6 [facility] Comment on above: Performed By: #### L 100.0100, L500.3400 #### [facility] [address] [place], [address] Hematocrit (Bld) [Volume fraction] 37.1 % Normal 37-47 [facility] Comment on above: Performed By: #### L 100.0100, L500.3400 #### [facility] [address] [place], [address] Hemoglobin (Bld) [Mass/Vol] 12.1 g/dL Normal 12.0-15.0 [facility] Comment on above: Performed By: #### L 100.0100, L500.3400 #### [facility] [address] [place], [address] IG% 0.200 Normal 0.0-0.9 [facility] Comment on above: Result Comment: IG% - Immature Granulocytes (promyelocytes, myelocytes and metamyelocytes) > 1% indicates that a LEFT SHIFT is Present. Performed By: #### L 100.0100, L500.3400 #### [facility] [address] [place], [address] Lymphocytes/100 WBC (Bld) 54.7 % High 19-41 [facility] Comment on above: Performed By: #### L 100.0100, L500.3400 #### [facility] [address] [place], [address] MCH (RBC) [Entitic mass] 32.5 pg High 27.0-32.0 [facility] Comment on above: Performed By: #### L 100.0100, L500.3400 #### [facility] [address] [place], [address] MCHC (RBC) [Mass/Vol] 32.6 g/dL Normal 32-36 [facility] Comment on above: Performed By: #### L 100.0100, L500.3400 #### [facility] [address] [place], [address] MCV (RBC) [Entitic vol] 99.7 fL High 81-99 [facility] Comment on above: Performed By: #### L 100.0100, L500.3400 #### [facility] [address] [place], [address] Monocytes/100 WBC (Bld) 6.7 % Normal 0-10 [facility] Comment on above: Performed By: #### L 100.0100, L500.3400 #### [facility] [address] [place], [address] Neutrophils/100 WBC (Bld) 33.4 % Low 47-70 [facility] Comment on above: Performed By: #### L 100.0100, L500.3400 #### [facility] [address] [place], [address] Nucleated RBC (Bld) [#/Vol] 0 10*3/uL Normal 0-5 [facility] Comment on above: Performed By: #### L 100.0100, L500.3400 #### [facility] [address] [place], [address] Platelet mean volume (Bld) [Entitic vol] 10.4 fL Normal 6.2-12.0 [facility] Comment on above: Performed By: #### L 100.0100, L500.3400 #### [facility] [address] [place], [address] Platelets (Bld) [#/Vol] 282 10*3/uL Normal 150-450 [facility] Comment on above: Performed By: #### L 100.0100, L500.3400 #### [facility] [address] [place], [address] RBC (Bld) [#/Vol] 3.72 10*6/uL Low 4.2-5.4 [facility] Comment on above: Performed By: #### L 100.0100, L500.3400 #### [facility] [address] [place], [address] RDW SD 50.9 fl High 35.1-43.9 [facility] Comment on above: Performed By: #### L 100.0100, L500.3400 #### [facility] [address] [place], [address] WBC (Bld) [#/Vol] 4.9 10*3/uL Normal 4.4-11.0 [facility] Comment on above: Performed By: #### L 100.0100, L500.3400 #### [facility] [address] [place], [address] Eosinophil percentageOrdered By: Juan José Weiner on 10-08-2024 Eosinophils/100 WBC (Bld) 4.0 % 0-5 [facility] Erythrocyte distribution wid th (RBC) [Ratio]Ordered By: Juan José Weiner on 10-08-2024 Erythrocyte distribution width (RBC) [Entitic vol] 50.9 fL High 35.1-43.9 [facility] Erythrocyte distribution wid th ratioOrdered By: [facility] Systems[facility]ine Weiner on 10-08-2024 Erythrocyte distribution width (RBC) [Ratio] 13.8 % 11.6-14.6 [facility] Hematocrit Auto (Bld) [Volum e fraction]Ordered By: Juan José Weiner on 10-08-2024 Hematocrit (Bld) [Volume fraction] 37.1 % 37-47 [facility] Hemoglobin measurementOrdere d By: Juan José Weiner on 10-08-2024 Hemoglobin (Bld) [Mass/Vol] 12.1 g/dL 12.0-15.0 [facility] Immature granulocytes/100 WB C Auto (Bld)Ordered By: Juan José Weiner on 10-08-2024 Immature granulocytes/100 WBC (Bld) 0.200 % 0.0-0.9 [facility] Comment on above: IG% - Immature Granu locytes (promyelocytes, myelocytes and metamyelocytes) > 1% indicates that a LEFT SHIFT is Present. Laboratory - Chemistry and C hemistry - challengeOrdered By: Juan José Weiner on 10-08-2024 AST [Catalytic activity/Vol] 32 U/L <32 [facility] Liver Profileon 10-08-2024 Albumin [Mass/Vol] 4.5 g/dL Normal 3.5-5.0 [facility] Comment on above: Performed By: #### L 100.0100, L500.3400 #### [facility] [address] [place], [address] ALK PHOS 104 U/L Normal 35-104 [facility] Comment on above: Performed By: #### L 100.0100, L500.3400 #### [facility] [address] [place], [address] ALT [Catalytic activity/Vol] 42 U/L High <=34 [facility] Comment on above: Performed By: #### L 100.0100, L500.3400 #### [facility] [address] [place], [address] AST [Catalytic activity/Vol] 32 U/L Normal <=31 [facility] Comment on above: Performed By: #### L 100.0100, L500.3400 #### [facility] [address] [place], [address] Bilirubin [Mass/Vol] 0.33 mg/dL Normal 0.00-1.30 [facility] Comment on above: Performed By: #### L 100.0100, L500.3400 #### [facility] [address] [place], [address] Bilirubin.direct [Mass/Vol] 0.18 mg/dL Normal 0.00-0.30 [facility] Comment on above: Performed By: #### L 100.0100, L500.3400 #### [facility] [address] [place], [address] Globulin (S) [Mass/Vol] 2.7 g/dL Normal 2.2-4.2 [facility] Comment on above: Performed By: #### L 100.0100, L500.3400 #### [facility] [address] [place], [address] T PROT 7.2 g/dL Normal 5.9-8.4 [facility] Comment on above: Performed By: #### L 100.0100, L500.3400 #### [facility] [place], [address] Lymphocytes Auto (Unsp spec) [#/Vol]Ordered By: Juan José Weiner on 10-08-2024 Lymphocytes (Bld) [#/Vol] 2.70 10*3/uL 0.83-4.51 [facility] Lymphocytes/100 WBC Auto (Un sp spec)Ordered By: Juan José Weiner on 10-08-2024 Lymphocytes/100 WBC (Bld) 54.7 % High 19-41 [facility] MCV (mean corpuscular volume ) determinationOrdered By: Juan José Weiner on 10-08-2024 MCV (RBC) [Entitic vol] 99.7 fL High 81-99 [facility] Mean corpuscular hemoglobin (MCH) determinationOrdered By: Juan José Weiner on 10-08-2024 MCH (RBC) [Entitic mass] 32.5 pg High 27.0-32.0 [facility] Mean corpuscular hemoglobin concentration (MCHC) determinationOrdered By: Juan José Weiner on 10-08-2024 MCHC (RBC) [Mass/Vol] 32.6 g/dL 32-36 [facility] Mean platelet volume determi nationOrdered By: Juan José Weiner on 10-08-2024 Platelet mean volume (Bld) [Entitic vol] 10.4 fL 6.2-12.0 [facility] Monocyte percentageOrdered B y: Juan José Weiner on 10-08-2024 Monocytes/100 WBC (Bld) 6.7 % 0-10 [facility] Neutrophil percentageOrdered By: Juan José Weiner on 10-08-2024 Neutrophils/100 WBC (Bld) 33.4 % Low 47-70 [facility] Nucleated red blood cell per centageOrdered By: Juan José Weiner on 10-08-2024 Nucleated RBC/100 WBC (Bld) [Ratio] 0 % 0-5 [facility] Platelet countOrdered By: Amada Weiner on 10-08-2024 Platelets (Bld) [#/Vol] 282 10*3/uL 150-450 [facility] RBC Auto (Bld) [#/Vol]Ordere d By: Juan José Weiner on 10-08-2024 RBC (Bld) [#/Vol] 3.72 10*6/uL Low 4.2-5.4 [facility] Serum globulin measurementOr dered By: Juan José Weiner on 10-08-2024 Globulin (S) [Mass/Vol] 2.7 g/dL 2.2-4.2 [facility] Serum or plasma alanine collins otransferase (ALT) measurementOrdered By: Juan José Weiner on 10-08-2024 ALT [Catalytic activity/Vol] 42 U/L High <35 [facility] Serum or plasma albumin karlo urement (mass/volume)Ordered By: Juan José Weiner on 10-08-2024 Albumin [Mass/Vol] 4.5 g/dL 3.5-5.0 [facility] Serum or plasma alkaline eden sphatase measurementOrdered By: Juan José Weiner on 10-08-2024 ALP [Catalytic activity/Vol] 104 U/L 35-104 [facility] Total proteinOrdered By: Sinan Weiner on 10-08-2024 Protein [Mass/Vol] 7.2 g/dL 5.9-8.4 [facility] White blood cell (WBC) count Ordered By: Juan José Weiner on 10-08-2024 WBC (Bld) [#/Vol] 4.9 10*3/uL 4.4-11.0 [facility] Breast imaging reportOrdered By: Estrella Calvert on 09-21-2024 Study report [facility] [address] [place] [address] SCRN MAMM (CAD)W/EUGENIO BILAT MR#: [id number] Acct: [id number] Name: VIRGINIA VILLAGRAN Rep #: [id number] : 1970 F 54 From: Yusra Calvert MD PCP: Dr. Gloria Bills, DO Status: RE G CLI Study:SCRN MAMM (CAD)W/EUGENIO BILAT Date of Exa m: 09/21/24 Exam# [id number] Ordering Dr: Ngozi Ortega ACADEMIC SUPPORT SPECIALIST ACADEMIC SUPPORT SPECIALIST-C PROCEDURE: SCRN MAMM (CAD)W/EUGENIO BILAT REASON FOR EXAM: F, Age 54 y/o , SCREENING FOR BREAST CANCER. No family history of breast cancer. TECHNIQUE: Bilateral screening digital breast tomosynthesis with 2D and 3D images. Computeraided detection. COMPARISON: 09/19/2023, 05/17/2022 FINDINGS: There are scattered areas of fibroglandular density. No suspicious masses, areas of developing architectural distortion, or suspicious calcifications. BI/SCRN MAMM (CAD)W/EUGENIO BILAT IMPRESSION: There is no mammographic evidence of malignancy. BI-RADS 1: NEGATIVE. RECOMMEND ANNUAL MAMMOGRAPHIC SCREENING. Follow-up code: Routine Follow-up The patient will be notified of the results by letter. Reading Location: [facility] CC: ACADEMIC SUPPORT SPECIALIST-Oly Ortega; Dr. Gloria Bills DO ~ Food Mixer Assembler: Signed [facility] SCRN MAMM (CAD)W/EUGENIO BILATo n 09-21-2024 SCRN MAMM (CAD)W/EUGENIO BILAT [facility] [address] [place] [address] [id number] SCRN MAMM (CAD)W/EUGENIO BILAT MR#: [id number] Acct: [id number] Name: VIRGINIA VILLAGRAN Rep #: [id number] : 1970 F 54 From: Estrella Calvert MD PCP: Dr. Gloria Bills DO Status: REG CLI Study: SCRN MAMM (CAD)W/EUGENIO BILAT Date of Exam: 09/11 08/07 Exam# [id number] Ordering Dr: Ngozi Ortega NP ACADEMIC SUPPORT SPECIALIST -C PROCEDURE: SCRN MAMM (CAD)W/EUGENIO BILAT REASON FOR EXAM: F, Age 54 y/o , SCREENING FOR BREAST CANCER. No family history of breast cancer. TECHNIQUE: Bilateral screening digital breast tomosynthesis with 2D and 3D images. Computer aided detection. COMPARISON: 09/19/2023, 05/17/2022 FINDINGS: There are scattered areas of fibroglandular density. No suspicious masses, areas of developing architectural distortion, or suspicious calcifications. BI/SCRN MAMM (CAD)W/EUGENIO BILAT IMPRESSION: There is no mammographic evidence of malignancy. BI-RADS 1: NEGATIVE. RECOMMEND ANNUAL MAMMOGRAPHIC SCREENING. Follow-up code: Routine Follow-up The patient will be notified of the results by letter. Reading Location: [facility] CC: COLBY Ortega; Dr. Gloria Bills, Food Mixer Assembler: Signed Normal [facility] Belt Machine Operator Office Visit Reporton 09-08-2024 Belt Machine Operator Office Visit Report [facility] [address], [address] [place] [address] OFFICE VISIT Date of Service: 09/08/24 MR#: [id number] Acct: [id number] Name: VIRGINIA VILLAGRAN Rep #: [id number] : 1970 Provider: COLBY izaguirre Age/Sex: 54/F Location: [facility] [place] Status: Signed Intake Vital Signs 09/02/23 14:30 06/27/24 13:52 09/08/24 08:05 09/08/24 08:12 Height 5 ft 6 in 5 ft 6 in 5 ft 6 in 5 ft 6 in Weight: 182 lb BMI 29.3 BP 120/76 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) Chief Complaint: Annual Supply Clerk Required: No Is patient in pain?: No Allergies No Known Allergies Allergy (Verified 09/08/24 08:13) Medications ???Medication ???Instructions ???Recorded ???Confirmed ???Type multivitamin with folic acid 400 1 tab PO DAILY 02/21/15 09/08/24 H istory mcg tablet (Thera) omega-3 fatty acids 300 mg capsule 300 mg PO DAILY 02/21/15 5 History (Fish Oil) valsartan 160 1 tab PO DAILY 02/21/15 09/08/24 H istory mg-hydrochlorothiazide 25 mg tablet (Diovan HCT) ascorbic acid (vitamin C) 500 mg 500 mg PO DAILY 09/02/23 09/08/24 History capsule atorvastatin 40 mg tablet 40 mg PO QHS 09/02/23 09/08/24 His tory cholecalciferol (vitamin D3) 125 7,000 unit PO DAILY 09/02/2309/08 History mcg (5,000 unit) capsule coenzyme Q10 75 mg capsule (Ultra 75 mg PO DAILY 09/02/23 09/08/24 History CoQ10) holy basil 1 tab PO DAILY 09/02/23 09/08/24 H istory infliximab-abda 100 mg intravenous mg .Route 09/02/23 09/08/24 Hist ory solution (Renflexis) magnesium oxide 400 mg PO DAILY 09/02/23 09/08/24 History potassium gluconate 595 mg (99 mg) 595 mg PO DAILY 09/02/23 5 History tablet thyrosol 1 tab PO DAILY 09/02/23 09/08/24 H istory vitamin E mixed 100 unit tablet 45 mg PO DAILY 09/02/23 09/08/24 H istory zinc gluconate 100 mg tablet 100 mg PO DAILY 09/02/23 09/08/24 History aspirin 81 mg tablet,delayed 81 mg PO QDAY 06/27/24 09/08/24 Hi story release Is last menstrual period known: No Post menopausal: Yes Patient : No : No [facility] Medical History Hypertension Psoriasis Ulcerative colitis High cholesterol Surgical History Status post hysteroscopy Social History Smoking Status: Never smoker Electronic Cigarette Use: not used second hand exposure: No alcohol intake: never substance use type: does not use en/buddhist: [employer] seatbelt use: always do you feel safe at home: Yes History 0 Elective abortions Hx Para Spontaneous abortions Hx # Term Pregnancies Ectopic pregnancies Hx # Pregnancies Multiple births # of living children HPI Encounter for routine gynecological examination Details: VIRGINIA VILLAGRAN is a 54 year old who presents for annual exam. Denies concerns. Last PAP: 2022 History of abnormal PAP: no Last mammogram: 09/2023 History of abnormal mammogram: no Colon cancer screenin Other preventative health care screenings: Sanju Female Reproductive History Questions: metorrhagia: No and sexually active: No ROS Const Constitutional: Denies fatigue, weight gain or weight loss Cardio Card: Denies chest pain Resp Resp: Denies cough or dyspnea on exertion GI GI: Denies abdominal pain, bloating, change in stool character, constipation or vomiting : Reports as per HPI; Denies difficulty voiding, pelvic pain, urinary frequency, urinary incontinence, urinary urgency, vaginal discharge or vaginal pruritus Exam Const General: cooperative, healthy appearing, no acute distress and well developed Orientation: alert, oriented to person and oriented to place [facility] Head: normal to inspection Neck Neck: normal visual inspection Thyroid: thyroid normal Lymphatic: no lymphadenopathy noted Chest Breast inspection: normal inspection of the breasts and normal inspection of the axillae Breast palpation: normal palpation of the breasts, normal palpation of the axillae and no axillary lymphadenopathy Resp Effort Inspection: normal respiratory effort GI Palpation: soft, no masses and nontender Rectal Exam: deferred External Female Exam: normal external appearance and normal appearance of the urethra Urethra: normal appearance of the urethra and normal palpation Speculum Exam - Vagina: normal appearance of the vagina and normal vaginal discharge Speculum Exam - Cervix: normal appearance of the cervix Bimanual Exam- Vagina Uterus: normal bimanual exam, uterine size normal, uterine shape normal and non-tender Bimanual Exam- Adnexa, other: normal adnexae, no (more content not included)... Normal [facility] Final Surgical Pathology Rep [facility] 07-19-2024 Final Surgical Pathology Report . Pathology Reports Accession: Collected Date/Time: Received Date/Time: Pathologist: [id number] 07/15/2024 14:04 EST 07/16/2024 08:25 ORLANDO ABDI MD Final Surgical Pathology Report DIAGNOSIS: A) RIGHT COLON, BIOPSY NEGATIVE FOR COLITIS. B) LEFT COLON, BIOPSY NEGATIVE FOR COLITIS CLINICAL INFORMATION: COLONOSCOPY WITH POSSIBLE BX AND/OR POLYPECTOMY Procedure: COLONOSCOPY WITH POSSIBLE BX AND/OR POLYPECTOMY Preoperative diagnosis: CHRONIC ULCERATIVE COLITIS, CONSTIPATION Postoperative diagnosis: CHRONIC ULCERATIVE COLITIS, CONSTIPATION SPECIMEN: A RIGHT COLON BXS - R/O DYSPLASIA, HISTORY OF ULCERATIVE COLITIS B LEFT COLON BX - R/O DYSPLASIA GROSS DESCRIPTION: All parts labelled with patient name and [id number] A. Received in formalin labeled right colon are 5 nieto-brown tissue fragments measuring 0.2 to 0.3 x 0.2 cm greatest dimension. Possible flecks, which may not survive processing, also identified. TS-1 B. Received in formalin labeled left colon are multiple wispy nieto-brown tissue fragments aggregating 2.0 x 0.3 x 0.2 cm greatest dimension. Smallest fragments may not survive processing. TS-1 Kirstie Beaulieu, Grossing Roving Carrier/ Dr. Orlando Crouch, Pathologist Performed by Kirstie Beaulieu MICROSCOPIC DESCRIPTION: The microscopic examination is performed, except in the case of Gross Only. Electronically Signed by Pathology Report verified by [facility] ORLANDO CROUCH Sign out Date: 07/19/2024 10:39 Performing Lab: [facility], [address] [place] [address] Pathology Dept Disclaimer If ancillary studies were utilized, the following Laboratory Developed Test (LDT) disclaimer will apply: Under CLIA requirements, [facility] Pathology Laboratory is qualified to perform high complexity testing. For all ancillary stains, positive and negative controls stain appropriately. Performance characteristics of immunohistochemical and chromogenic in-situ hybridization tests have been determined by [facility] Pathology Laboratory. These tests are used for clinical purposes, They should not be regarded as investigational or for research. Normal [facility] Final Surgical Pathology Report #[id number] [facility] Final Surgical Pathology Report #[id number] [facility] Final [facility] Pathology Report #[id number] [facility] Final Surgical Pathology Report #[id number] [facility] Final Surgical Pathology Report #[id number] [facility] Final Surgical Pathology Report #[id number] [facility] Final Surgical Pathology Report #[id number] [facility] Office Visit Reporton 2023 Office Visit Report [facility] [place] [address] OFFICE VISIT Date of Service: 06/27/24 MR#: [id number] Acct: [id number] Patient: VIRGINIA VILLAGRAN Rep #: [id number] : 1970 Provider: COLBY weiss Age/Sex: 54/F [place] [facility] [place] Status: Signed Intake Vital Signs 09/02/23 14:30 06/27/24 13:52 Height 5 ft 6 in 5 ft 6 in Weight: 181 lb BMI 29.2 BP 128/72 H Blood Pressure Location Lt brachial Position Sitting Respiration 16 Pulse 63 Pulse Source NIBP Temp 99.2 F H Temp Source Oral Pulse Oximetry (%) 98 Oxygen Delivery Method room air Intake Visit Reasons: COUGH, SORE THROAT Chief Complaint: cough, ST, FLEMING, BA, drainage Supply Clerk Required: No Is patient in pain?: No Allergies No Known Allergies Allergy (Verified 06/27/24 13:54) Medications ???Medication ???Instructions ???Recorded ???Confirmed ???Type balsalazide 750 mg capsule 6.75 g PO BID 02/21/15 06/27/24 History calcium 315 mg (as 1 ea PO DAILY 02/21/15 06/27/24 History citrate)-vitamin D3 5 mcg (200 unit) tablet multivitamin with folic acid 400 1 tab PO DAILY 02/21/15 06/27/24 History mcg tablet (Thera) omega-3 fatty acids 300 mg capsule 300 mg PO DAILY 02/21/15 06/27/24 History (Fish Oil) valsartan 160 1 tab PO DAILY 02/21/15 06/27/24 History mg-hydrochlorothiazide 25 mg tablet (Diovan HCT) ascorbic acid (vitamin C) 500 mg 500 mg PO DAILY 09/02/23 06/27/24 History capsule atorvastatin 40 mg tablet 40 mg PO QHS 09/02/23 06/27/24 History cholecalciferol (vitamin D3) 125 7,000 unit PO DAILY 09/02/23 06/27/24 History mcg (5,000 unit) capsule coenzyme Q10 75 mg capsule (Ultra 75 mg PO DAILY 09/02/23 06/27/24 History CoQ10) holy basil 1 tab PO DAILY 09/02/23 06/27/24 History infliximab-abda 100 mg intravenous mg .Route 09/02/23 06/27/24 History solution (Renflexis) magnesium oxide 400 mg PO DAILY 09/02/23 06/27/24 History potassium gluconate 595 mg (99 mg) 595 mg PO DAILY 09/02/23 06/27/24 History tablet thyrosol 1 tab PO DAILY 09/02/23 06/27/24 History vitamin E mixed 100 unit tablet 45 mg PO DAILY 09/02/23 06/27/24 History zinc gluconate 100 mg tablet 100 mg PO DAILY 09/02/23 06/27/24 History aspirin 81 mg tablet,delayed 81 mg PO QDAY 06/27/24 06/27/24 History release azithromycin 250 mg tablet See Rx Instructions PO .COMPLEX #6 06/27/24 06/27/24 Rx (Zithromax Z-Mickey) tabs Is last menstrual period known: No Post menopausal: Yes Patient : No Have you fallen in the past year?: No Nurse's Note: cough, ST, FLEMING, BA, drainage x 5 days. has taken 4-5 home covid tests (all neg) most recent today. [facility] Medical History Hypertension Psoriasis Ulcerative colitis High cholesterol Surgical History Status post hysteroscopy Social History (Updated 09/02/23 @ 14:27 by Adelina Quinonez) Smoking Status: Never smoker Electronic Cigarette Use: not used second hand exposure: No alcohol intake: never substance use type: does not use en/buddhist: [employer] seatbelt use: always do you feel safe at home: Yes HPI HPI Chief Complaint: cough, ST, FLEMING, BA, drainage Details: VIRGINIA VILLAGRAN, is a 54 F who presents to the office today for cough, sore throat, headache, body ache, and nasal drainage. ROS Const Constitutional: Positive for headache(s); No body ache, chills, fatigue, fever(s) or change in appetite Eyes Eyes: No blurry vision, change in vision, double vision, irritation, discharge, vision loss, dry eyes, bulging eyes, floaters, visual disturbances, eye pain, Light sensitivity, spots in vision, tunnel vision or other ENT ENT: Positive for nasal discharge, headache(s) and sore throat; No ear or mastoid pain, ear discharge, ear pressure, tinnitus, dizziness/vertigo, nosebleed/epistaxis, nasal congestion, nose pain, sinus pressure, sinus pain, post nasal drip, facial pain, dental pain, difficulty swallowing, bad breath, hoarseness, lip swelling, mouth lesions, mouth pain, neck pain, tongue swelling or throat swelling Resp Respiratory: Positive for cough; No change in phlegm color, chest congestion, hemoptysis, pain on inspiration, shortness of breath, pain with cough, stridor or wheezing Cardio Cardiology: No chest pain at rest, chest pain with exertion, shortness of breath, dyspnea on exertion or lightheadedness Gastro GI: No abdominal pain, change in bowel habits or difficulty swallowing Genitourinary-Female: No burning urination or urinary frequency Musc Musculoskeletal: No joint pain or neck pain Skin Skin: No rash Neuro Neurology: Positive for headache(s); No visual disturbances Psych Psychiatric: No change in appetite Endo Endocrine: No fa (more content not included)... Normal [facility] CBC W/Diff, Automatedon 07-2 0-2023 Absolute Lymph 2.38 X10 3/uL Normal 0.83-4.51 [facility] Comment on above: Performed By: #### L 500.3400, L100.0100 ####[facility] [address] [place], [address] Absolute Neut 1.5 X10 3/uL Low 2.0-7.7 [facility] Comment on above: Performed By: #### L 500.3400, L100.0100 ####[facility] [address] [place], [address] Basophils/100 WBC (Bld) 0.9 % Normal 0-1 [facility] Comment on above: Performed By: #### L 500.3400, L100.0100 ####[facility] [address] [place], [address] Eosinophils/100 WBC (Bld) 4.0 % Normal 0-5 [facility] Comment on above: Performed By: #### L 500.3400, L100.0100 ####[facility] [address] [place], [address] Erythrocyte distribution width (RBC) [Ratio] 15.9 % High 11.6-14.6 [facility] Comment on above: Performed By: #### L 500.3400, L100.0100 ####[facility] [address] [place], [address] Hematocrit (Bld) [Volume fraction] 38.1 % Normal 37-47 [facility] Comment on above: Performed By: #### L 500.3400, L100.0100 ####[facility] [address] [place], [address] Hemoglobin (Bld) [Mass/Vol] 12.5 g/dL Normal 12.0-15.0 [facility] Comment on above: Performed By: #### L 500.3400, L100.0100 ####[facility] [address] [place], [address] IG% 0.000 Normal 0.0-0.9 [facility] Comment on above: Result Comment: IG% - Immature Granulocytes (promyelocytes, myelocytes and metamyelocytes) > 1% indicates that a LEFT SHIFT is Present. Performed By: #### L 500.3400, L100.0100 ####[facility] [address] [place], [address] Lymphocytes/100 WBC (Bld) 52.7 % High 19-41 [facility] Comment on above: Performed By: #### L 500.3400, L100.0100 ####[facility] [address] [place], [address] MCH (RBC) [Entitic mass] 32.6 pg High 27.0-32.0 [facility] Comment on above: Performed By: #### L 500.3400, L100.0100 ####[facility] [address] [place], [address] MCHC (RBC) [Mass/Vol] 32.8 g/dL Normal 32-36 [facility] Comment on above: Performed By: #### L 500.3400, L100.0100 ####[facility] [address] [place], [address] MCV (RBC) [Entitic vol] 99.2 fL High 81-99 [facility] Comment on above: Performed By: #### L 500.3400, L100.0100 ####[facility] [address] [place], [address] Monocytes/100 WBC (Bld) 8.8 % Normal 0-10 [facility] Comment on above: Performed By: #### L 500.3400, L100.0100 ####[facility] [address] [place], [address] Neutrophils/100 WBC (Bld) 33.6 % Low 47-70 [facility] Comment on above: Performed By: #### L 500.3400, L100.0100 ####[facility] [address] [place], [address] Nucleated RBC (Bld) [#/Vol] 0 10*3/uL Normal 0-5 [facility] Comment on above: Performed By: #### L 500.3400, L100.0100 ####[facility] [address] [place], [address] Platelet mean volume (Bld) [Entitic vol] 10.0 fL Normal 6.2-12.0 [facility] Comment on above: Performed By: #### L 500.3400, L100.0100 ####[facility] [address] [place], [address] Platelets (Bld) [#/Vol] 319 10*3/uL Normal 150-450 [facility] Comment on above: Performed By: #### L 500.3400, L100.0100 ####[facility] [address] [place], [address] RBC (Bld) [#/Vol] 3.84 10*6/uL Low 4.2-5.4 [facility] Comment on above: Performed By: #### L 500.3400, L100.0100 ####[facility] [address] [place], [address] RDW SD 57.6 fl High 35.1-43.9 [facility] Comment on above: Performed By: #### L 500.3400, L100.0100 ####[facility] [address] [place], [address] WBC (Bld) [#/Vol] 4.5 10*3/uL Normal 4.4-11.0 [facility] Comment on above: Performed By: #### L 500.3400, L100.0100 ####[facility] [address] [place], [address] Liver Profileon 01-31-2024 Albumin [Mass/Vol] 4.2 g/dL Normal 3.2-5.0 [facility] Comment on above: Performed By: #### L 500.3400, L100.0100 ####[facility] [address] [place], [address] ALK P 63 U/L Normal 45-117 [facility] Comment on above: Performed By: #### L 500.3400, L100.0100 ####[facility] [address] [place], [address] ALT [Catalytic activity/Vol] 25 U/L Normal 13-56 [facility] Comment on above: Performed By: #### L 500.3400, L100.0100 ####[facility] [address] [place], [address] AST [Catalytic activity/Vol] 31 U/L Normal 15-37 [facility] Comment on above: Performed By: #### L 500.3400, L100.0100 ####[facility] [address] [place], [address] Bilirubin [Mass/Vol] 0.60 mg/dL Normal 0.20-1.00 [facility] Comment on above: Result Comment: For patients on eltrombopag therapy, use of Dimension [place] TBIL is not recommended. Performed By: #### L 500.3400, L100.0100 ####[facility] [address] [place], [address] Bilirubin.direct [Mass/Vol] 0.17 mg/dL Normal 0.00-0.30 [facility] Comment on above: Performed By: #### L 500.3400, L100.0100 ####[facility] [address] [place], [address] Globulin (S) [Mass/Vol] 3.3 g/dL Normal 2.2-4.2 [facility] Comment on above: Performed By: #### L 500.3400, L100.0100 ####[facility] [address] [place], [address] T PROT 7.5 g/dL Normal 6.4-8.2 [facility] Comment on above: Performed By: #### L 500.3400, L100.0100 ####[facility] [address] [place], [address] Orb Sella Post Fossa Ear w/o on 01-23-2024 Orb Sella Post Fossa Ear w/o [facility] [address] [place] [address] Orb Sella Post Fossa Ear w/o MR#: [id number] Acct: [id number] Name: VIRGINIA VILLAGRAN Rep #: [id number] : 1970 F 53 From: Yuan Mosqueda MD PCP: Dr. Gloria Bills, DO Status: REG CLI Study: Orb Sella Post Fossa Ear w/o Date of Exam: 07/06 Exam# [id number] Ordering Dr: [place] [id number] INDICATION: PULSATILE TINNITUS EXAMINATION: CT IAC TEMPORAL BONES - CT IACs W/O Contrast Injection TECHNIQUE: Routine noncontrast CT protocol was performed of the internal auditory canals and temporal bones. 2-D reformats were performed by the technologist. The protocol utilizes one or more of the following dose reduction techniques: automated exposure control, adjustment of mA and/or kV according to patient size,and/or use of iterative reconstruction technique. IV Contrast dosage and agent: None. RADIATION DOSAGE (If Supplied By Facility): CTDIvol = ( 67.58 ) mGy, DLP = ( 671.16 ) mGycm COMPARISON: FINDINGS: RIGHT SIDE: No fracture. SUPERFICIAL SOFT TISSUES: Unremarkable. MASTOID AIR CELLS: Well aerated, unremarkable. EXTERNAL AUDITORY CANALS: Clear. MIDDLE EAR CAVITIES: Well aerated. Ossicles and scutum intact. INTERNAL AUDITORY CANALS: Unremarkable bilateral internal auditory canals. No osseous erosion or widening of the canal. INNER EAR: Unremarkable cochlea, vestibule and semicircular canals. LEFT SIDE: No fracture. SUPERFICIAL SOFT TISSUES: Unremarkable. MASTOID AIR CELLS: Well aerated, unremarkable. EXTERNAL AUDITORY CANALS: Clear. MIDDLE EAR CAVITIES: Well aerated. Ossicles and scutum intact. INTERNAL AUDITORY CANALS: Unremarkable bilateral internal auditory canals. No osseous erosion or widening of the canal. INNER EAR: Unremarkable cochlea, vestibule and semicircular canals. VISUALIZED BRAIN AND POSTERIOR FOSSA: Cerebello-pontine angles are unremarkable. CT/Orb Sella Post Fossa Ear w/o IMPRESSION: Negative CT of the internal auditory canals and temporal bones. Electronically Signed: Yuan Mosqueda MD at 19:10 EDT , CC: Dr. Kane Chen MD; Dr. Gloria Bills DO Food Mixer Assembler: Signed Normal [facility] Miscellaneous Lab Procedureo n 12-18-2023 [facility] TEST Normal [facility] Comment on above: Order Comment: [id number] INFLIXIMAB DRUG LEVEL SST FZ [id number] INFLIXIMAB DRUG LEVEL SST FZ Result Comment: Scan lola image report available in EMR Performed By: #### L 801.1541 #### [facility] [address] [place], [address] Carotid Duplex Ultrasoundon 12-05-2023 Carotid Duplex Ultrasound [facility] [address] [place] [address] Carotid Duplex Ultrasound 12/05/23 0754 MR#: [id number] Acct: [id number] Name: VIRGINIA VILLAGRAN Rep #: [id number] : 1970 53 From: Armin Herrera MD Attending Dr: Dr. Gloria Bills DO Status: R EG CLI Ordering Dr: Gloria Bills DO Date: 12/05/23 Location: [facility] Sex: F C Admitted: Reason For Study: PULSITILE TINNITUS, BILATERAL Rt. Velocities/BP Lt. Velocities/BP Prox CCA 64.8/24.2 cm/sec. Prox CCA 88.4/34.6 cm/sec. Mid CCA 95.2/31.4 cm/sec. Mid CCA 115.0/42.5 cm/sec. Dist CCA 94.1/38.0 cm/sec. Dist CCA 104.7/35.5 cm/sec. Prox ICA 55.4/21.4 cm/sec. Prox ICA 78.34/32.2 cm/sec. Mid ICA 73.3/35.5 cm/sec. Mid ICA 88.3/42.1 cm/sec. Dist ICA 71.4/30.8 cm/sec. Dist ICA 80.6/38.8 cm/sec. Rt. ICA/CCA = 73.3/95.2=0.8. Lt. ICA/CCA = 88.3/115.0=0.8. Prox ECA 66.6/12.7 cm/sec. Prox ECA 87.2/19.0 cm/sec. Rt. Vert. 40.2/11.9 cm/sec. Lt. Vert. 39.1/14.9 cm/sec. Right Extracranial There is intimal thickening but no significant atherosclerotic plaque noted in the right common carotid artery. There is heterogeneous, irregular atherosclerotic plaque noted in the right internal carotid artery. There is heterogeneous, smooth atherosclerotic plaque noted in the right external carotid artery. Antegrade flow is noted in the right vertebral artery. Left Extracranial There is homogeneous, smooth atherosclerotic plaque noted in the left common carotid artery. There is heterogeneous, irregular atherosclerotic plaque noted in the left internal carotid artery. There is no significant atherosclerotic plaque noted in the left external carotid artery. Antegrade flow is noted in the left vertebral artery. Procedure Carotid Duplex 14089. This is a Carotid Duplex examination using B-mode, color flow and specral Doppler. Exam performed in department. VL/Carotid Duplex Ultrasound Interpretation Summary Mild (<50%) stenosis right extracranial internal carotid. Mild (<50%) stenosis left extracranial internal carotid. Patent and antegrade vertebrals bilaterally. Ordering Physician: Gloria Bills Referring Physician: Gloria Bills Performed By: Susana León, RDCS, RVT 12/09/23 945 Date Armin Herrera MD CC: Dr. Gloria Bills, DO Date Dictated: 12/05/23 075 Date Transcribed: 12/09/231834 Food Mixer Assembler: Signed Normal [facility] CBC W/Diff, Automatedon 05-0 2-2023 Absolute Lymph 1.89 X10 3/uL Normal 0.83-4.51 [facility] Comment on above: Performed By: #### L 500.3400, L100.0100 #### [facility] [address] [place], [address] Absolute Neut 2.1 X10 3/uL Normal 2.0-7.7 [facility] Comment on above: Performed By: #### L 500.3400, L100.0100 #### [facility] [address] [place], [address] Basophils/100 WBC (Bld) 1.0 % Normal 0-1 [facility] Comment on above: Performed By: #### L 500.3400, L100.0100 #### [facility] [address] [place], [address] Eosinophils/100 WBC (Bld) 5.4 % High 0-5 [facility] Comment on above: Performed By: #### L 500.3400, L100.0100 #### [facility] [address] [place], [address] Erythrocyte distribution width (RBC) [Ratio] 12.5 % Normal 11.6-14.6 [facility] Comment on above: Performed By: #### L 500.3400, L100.0100 #### [facility] [address] [place], [address] Hematocrit (Bld) [Volume fraction] 40.0 % Normal 37-47 [facility] Comment on above: Performed By: #### L 500.3400, L100.0100 #### [facility] [address] [place], [address] Hemoglobin (Bld) [Mass/Vol] 12.5 g/dL Normal 12.0-15.0 [facility] Comment on above: Performed By: #### L 500.3400, L100.0100 #### [facility] [address] [place], [address] IG% 0.200 Normal 0.0-0.9 [facility] Comment on above: Result Comment: IG% - Immature Granulocytes (promyelocytes, myelocytes and metamyelocytes) > 1% indicates that a LEFT SHIFT is Present. Performed By: #### L 500.3400, L100.0100 #### [facility] [address] [place], [address] Lymphocytes/100 WBC (Bld) 39.4 % Normal 19-41 [facility] Comment on above: Performed By: #### L 500.3400, L100.0100 #### [facility] [address] [place], [address] MCH (RBC) [Entitic mass] 30.8 pg Normal 27.0-32.0 [facility] Comment on above: Performed By: #### L 500.3400, L100.0100 #### [facility] [address] [place], [address] MCHC (RBC) [Mass/Vol] 31.3 g/dL Low 32-36 [facility] Comment on above: Performed By: #### L 500.3400, L100.0100 #### [facility] [address] [place], [address] MCV (RBC) [Entitic vol] 98.5 fL Normal 81-99 [facility] Comment on above: Performed By: #### L 500.3400, L100.0100 #### [facility] [address] [place], [address] Monocytes/100 WBC (Bld) 10.2 % High 0-10 [facility] Comment on above: Performed By: #### L 500.3400, L100.0100 #### [facility] [address] [place], [address] Neutrophils/100 WBC (Bld) 43.8 % Low 47-70 [facility] Comment on above: Performed By: #### L 500.3400, L100.0100 #### [facility] [address] [place], [address] Nucleated RBC (Bld) [#/Vol] 0 10*3/uL Normal 0-5 [facility] Comment on above: Performed By: #### L 500.3400, L100.0100 #### [facility] [address] [place], [address] Platelet mean volume (Bld) [Entitic vol] 11.2 fL Normal 6.2-12.0 [facility] Comment on above: Performed By: #### L 500.3400, L100.0100 #### [facility] [address] [place], [address] Platelets (Bld) [#/Vol] 321 10*3/uL Normal 150-450 [facility] Comment on above: Performed By: #### L 500.3400, L100.0100 #### [facility] [address] [place], [address] RBC (Bld) [#/Vol] 4.06 10*6/uL Low 4.2-5.4 [facility] Comment on above: Performed By: #### L 500.3400, L100.0100 #### [facility] [address] [place], [address] RDW SD 45.6 fl High 35.1-43.9 [facility] Comment on above: Performed By: #### L 500.3400, L100.0100 #### [facility] [address] [place], [address] WBC (Bld) [#/Vol] 4.8 10*3/uL Normal 4.4-11.0 [facility] Comment on above: Performed By: #### L 500.3400, L100.0100 #### [facility] [address] [place], [address] Liver Profileon 11-13-2023 Albumin [Mass/Vol] 3.9 g/dL Normal 3.2-5.0 [facility] Comment on above: Performed By: #### L 500.3400, L100.0100 #### [facility] [address] [place], [address] ALK P 76 U/L Normal 45-117 [facility] Comment on above: Performed By: #### L 500.3400, L100.0100 #### [facility] [address] [place], [address] ALT [Catalytic activity/Vol] 45 U/L Normal 13-56 [facility] Comment on above: Performed By: #### L 500.3400, L100.0100 #### [facility] [address] [place], [address] AST [Catalytic activity/Vol] 67 U/L High 15-37 [facility] Comment on above: Performed By: #### L 500.3400, L100.0100 #### [facility] [address] [place], [address] Bilirubin [Mass/Vol] 0.30 mg/dL Normal 0.20-1.00 [facility] Comment on above: Result Comment: For patients on eltrombopag therapy, use of Dimension [place] TBIL is not recommended. Performed By: #### L 500.3400, L100.0100 #### [facility] [address] [place], [address] Bilirubin.direct [Mass/Vol] 0.10 mg/dL Normal 0.00-0.30 [facility] Comment on above: Performed By: #### L 500.3400, L100.0100 #### [facility] [address] [place], [address] Globulin (S) [Mass/Vol] 3.5 g/dL Normal 2.2-4.2 [facility] Comment on above: Performed By: #### L 500.3400, L100.0100 #### [facility] [address] [place], [address] T PROT 7.4 g/dL Normal 6.4-8.2 [facility] Comment on above: Performed By: #### L 500.3400, L100.0100 #### [facility] [address] [place], [address] Absolute lymphocyte countOrd ered By: Juan José Weiner on 08-15-2023 Lymphocytes Auto (Unsp spec) [#/Vol] 1.76 10*3/uL 0.83-4.51 [facility] Automated lymphocyte count a s percentage of total leukocytesOrdered By: Juan José Weiner on 08-15-2023 Lymphocytes/100 WBC Auto (Unsp spec) 29.7 % 19-41 [facility] Basophil percentageOrdered B y: Juan José Weiner on 08-15-2023 Basophils/100 WBC (Bld) 0.5 % 0-1 [facility] Eosinophils/100 WBC (Bld) 4.7 % 0-5 [facility] Hemoglobin (Bld) [Mass/Vol] 11.6 g/dL 12.0-15.0 [facility] Monocytes/100 WBC (Bld) 7.1 % 0-10 [facility] Neutrophils (Bld) [#/Vol] 3.4 10*3/uL 2.0-7.7 [facility] Neutrophils/100 WBC (Bld) 57.7 % 47-70 [facility] WBC (Bld) [#/Vol] 5.9 10*3/uL 4.4-11.0 [facility] Determination of erythrocyte mean corpuscular volume (MCV)Ordered By: Juan José Weiner on 08-15-2023 MCV (RBC) [Entitic vol] 97.6 fL 81-99 [facility] Erythrocyte distribution wid th ratioOrdered By: Juan José Weiner on 08-15-2023 Erythrocyte distribution width (RBC) [Ratio] 13.4 % 11.6-14.6 [facility] Erythrocyte distribution wid th standard deviationOrdered By: Juan José Weiner on 08-15-2023 Erythrocyte distribution width (RBC) [Entitic vol] 47.8 fL 35.1-43.9 [facility] Hematocrit Auto (Bld) [Volum e fraction]Ordered By: Juan José Weiner on 08-15-2023 Hematocrit (Bld) [Volume fraction] 36.7 % 37-47 [facility] Immature granulocytes/100 WB C Auto (Bld)Ordered By: Juan José Weiner on 08-15-2023 Immature granulocytes/100 WBC (Bld) 0.300 % 0.0-0.9 [facility] Comment on above: IG% - Immature Granu locytes (promyelocytes, myelocytes and metamyelocytes) > 1% indicates that a LEFT SHIFT is Present. Laboratory - Hematology and Cell countsOrdered By: Juan José Weiner on 08-15-2023 MCH (RBC) [Entitic mass] 30.9 pg 27.0-32.0 [facility] MCHC (RBC) [Mass/Vol] 31.6 g/dL 32-36 [facility] Nucleated RBC/100 WBC (Bld) [Ratio] 0 % 0-5 [facility] Platelets (Bld) [#/Vol] 311 10*3/uL 150-450 [facility] No Panel InformationOrdered By: Juan José Weiner on 08-15-2023 Hepatitis B Surface Antigen Non-Reactive Nonreactive [facility] Platelet mean volume David-Ec ker (Bld) [Entitic vol]Ordered By: Juan José Weiner on 08-15-2023 Platelet mean volume (Bld) [Entitic vol] 10.7 fL 6.2-12.0 [facility] Qualitative QuantiFERON-TB g old in tube testOrdered By: Juan José Weiner on 08-15-2023 M. tuberculosis tuberculin stim IFN-g Ql (Bld) 0 IU/mL . [facility] RBC Auto (Bld) [#/Vol]Ordere d By: Juan José Weiner on 08-15-2023 RBC (Bld) [#/Vol] 3.76 10*6/uL 4.2-5.4 [facility] Thin prep Papanicolaou smear with manual screeningOrdered By: Juan José Weiner on 08-15-2023 Thin prep Papanicolaou smear with manual screening Comment . [facility] Comment on above: QuantiFERON-TB Gold Plus is a qualitative indirect test forM tuberculosis infection (including disease) and isintended for use in conjunction with risk assessment,radiography, and other medical and diagnostic evaluations.The QuantiFERON-TB Gold Plus result is determined bysubtracting the Nil value from either TB antigen (Ag)value. The Mitogen tube serves as a control for the test. Thin prep Papanicolaou smear with manual screening 0 IU/mL . [facility] Thin prep Papanicolaou smear with manual screening > 10.00 IU/mL . [facility] Thin prep Papanicolaou smear with manual screening Negative Negative [facility] Comment on above: No response to M tub erculosis antigens detected.Infection with M tuberculosis is unlikely, but high riskindividuals should be considered for additional testing(ATS/IDSA/CDC Clinical Practice Guidelines, 2017). Thereference range is an Antigen minus Nil result of <0.35IU/mL.The specimen received for QuantiFERON testing was incubatedby the ordering institution. Specific procedures outlinedin our Directory of Services and in the package insert forthe QuantiFERON Gold (In Tube) test must be followed toenable for proper stimulation of cells for the productionof interferon gamma. Chemiluminescence immunoassaymethodologyPerformed at: [facility] [id number] Director: Juan José Garcia PhD, Phone: [phone] Clostridioides difficile nuc leic acid assay by PCROrdered By: Juan José Weiner on 06-19-2023 C. difficile DNA TERI+probe Ql (Unsp spec) [facility] Clostridium difficile detect ion by polymerase chain reactionOrdered By: Juan José Weiner on 06-19-2023 C. difficile DNA TERI+probe Ql (Unsp spec) [facility] Basophil percentageOrdered B y: Juan José Weiner on 06-18-2023 Bilirubin [Mass/Vol] 0.30 mg/dL 0.20-1.00 [facility] Comment on above: For patients on eltr ombopag therapy, use of Dimension [place] TBIL is not recommended. Protein [Mass/Vol] 8.2 g/dL 6.4-8.2 [facility] WBC (Bld) [#/Vol] 6.9 10*3/uL 4.4-11.0 [facility] Blood erythrocytes count (nu mber/volume)Ordered By: Juan José Weiner on 06-18-2023 RBC (Bld) [#/Vol] 4.24 10*6/uL 4.2-5.4 [facility] Blood hemoglobin measurement (mass/volume)Ordered By: Juan José Weiner on 06-18-2023 Hemoglobin (Bld) [Mass/Vol] 13.3 g/dL 12.0-15.0 [facility] Blood platelet mean volumeOr dered By: Juan José Weiner on 06-18-2023 Platelet mean volume (Bld) [Entitic vol] 10.2 fL 6.2-12.0 [facility] Determination of erythrocyte mean corpuscular volume (MCV)Ordered By: Juan José Weiner on 06-18-2023 MCV (RBC) [Entitic vol] 98.6 fL 81-99 [facility] Direct bilirubinOrdered By: Juan José Weiner on 06-18-2023 Bilirubin.direct [Mass/Vol] 0.11 mg/dL 0.00-0.30 [facility] Erythrocyte sedimentation ra teOrdered By: Juan José Weiner on 06-18-2023 ESR (Bld) [Velocity] 15 mm/h 0-30 [facility] Hematocrit Auto (Bld) [Volum e fraction]Ordered By: Juan José Weiner on 12-06-2023 Hematocrit (Bld) [Volume fraction] 41.8 % 37-47 [facility] - Chemistry and C hemistry - challengeOrdered By: Juan José Weiner on 06-18-2023 ALP [Catalytic activity/Vol] 114 U/L 45-117 [facility] ALT [Catalytic activity/Vol] 42 U/L 13-56 [facility] Globulin (S) [Mass/Vol] 4.4 g/dL 2.2-4.2 [facility] - Hematology and Cell countsOrdered By: Juan José Weiner on 06-18-2023 Erythrocyte distribution width (RBC) [Entitic vol] 49.6 fL 35.1-43.9 [facility] Erythrocyte distribution width (RBC) [Ratio] 13.4 % 11.6-14.6 [facility] MCH (RBC) [Entitic mass] 31.4 pg 27.0-32.0 [facility] MCHC Auto (RBC) [Mass/Vol]Or dered By: Juan José Weiner on 06-18-2023 MCHC (RBC) [Mass/Vol] 31.8 g/dL 32-36 [facility] Platelets bldOrdered By: Sinan Weiner on 06-18-2023 Platelets (Bld) [#/Vol] 338 10*3/uL 150-450 [facility] Serum or plasma C reactive p rotein measurement (mass/volume)Ordered By: Juan José Weiner on 06-18-2023 CRP [Mass/Vol] mg/L 0.0-3.0 [facility] Comment on above: C-Reactive Protein ( CRP) provides useful information for thediagnosis, therapy and monitoring of inflammatory processesand associated diseases. For the evaluation of Relative Riskfor Cardiovascular Disease, a High Sensitivity CRP (HSCRP)should be ordered. Serum or plasma albumin karlo urement (mass/volume)Ordered By: Juan José Weiner on 06-18-2023 Albumin [Mass/Vol] 3.8 g/dL 3.2-5.0 [facility] Thin prep Papanicolaou smear with manual screeningOrdered By: Juan José Weiner on 06-18-2023 Thin prep Papanicolaou smear with manual screening 23 U/L 15-37 [facility] No Panel InformationOrdered By: Juan José Weiner on 06-06-2023 Miscellaneous Test See comment [facility] Comment on above: Scanned image report available in EMR Final Surgical Pathology Rep kofi 05-13-2023 Final Surgical Pathology Report . Pathology Reports Accession: Collected Date/Time: Received Date/Time: Pathologist: [id number] 05/09/2023 12:12 EDT 05/12/2023 07:53 EDT ADONIS ROBBINS MD Final Surgical Pathology Report DIAGNOSIS: A. ASCENDING COLON BIOPSY: - FRAGMENTS OF UNREMARKABLE COLON MUCOSA B. DESCENDING AND SIGMOID BIOPSIES: - MODERATELY ACTIVE CHRONIC COLITIS C. RECTAL BIOPSY: - MILD CHRONIC PROCTITIS WITH MILD ACTIVITY Comment: Biopsies A through C: Negative for dysplasia CLINICAL INFORMATION: DIAGNOSTIC COLONOSCOPY WITH POSSIBLE BX AND/OR POLYPECTOMY Preoperative diagnosis: OTHER ULCERATIVE COLITIS WITHOUT COMPLICATIONS SPECIMEN: A ASCENDING COLON BX R/O ULCERATIVE COLITIS/DYSPLASIA B DESCENDING/SIGMOID BXS R/O ULCERATIVE COLITIS/DYSPLASIA C RECTAL BX R/O ULCERATIVE COLITIS/DYSPLASIA GROSS DESCRIPTION: All parts labelled with patient name and [id number] A. Received in formalin labeled ascending colon biopsies are multiple nieto tissue fragments aggregating 1.3 x 0.5 x 0.2 cm. TS-1 B. Received in formalin labeled descending colon/sigmoid biopsy are multiple nieto tissue fragments aggregating 1.5 x 0.2 x 0.1 cm. TS-1 C. Received in formalin labeled rectal biopsies are 5 wispy nieto tissue fragments measuring less than 0.1 to 0.6 x 0.2 cm. The smallest fragments may not survive processing. TS-1 Kirstie Beaulieu, Grossing Roving Carrier/ Dr. Orlando Crouch, Pathologist Dictated by Kirstie Beaulieu MICROSCOPIC DESCRIPTION: The microscopic examination is performed, except in the case of Gross Only. Electronically Signed by Pathology Report verified by [facility] ADONIS ROBBINS Sign out Date: 05/13/2023 09:48 Performing Lab: [facility], [address] [place] [address] Pathology Dept Disclaimer If ancillary studies were utilized, the following Laboratory Developed Test (LDT) disclaimer will apply: Under CLIA requirements, [facility] Pathology Laboratory is qualified to perform high complexity testing. For all ancillary stains, positive and negative controls stain Pathology Reports Accession: Collected Date/Time: Received Date/Time: Pathologist: [id number] 05/09/2023 12:12 EDT 05/12/2023 07:53 EDT ADONIS ROBBINS MD Disclaimer appropriately. Performance characteristics of immunohistochemical and chromogenic in-situ hybridization tests have been determined by [facility] Pathology Laboratory. These tests are used for clinical purposes, They should not be regarded as investigational or for research. Normal [facility] ([place]) No Panel InformationOrdered By: Juan José Weiner on 04-23-2023 Stool Calprotectin 256 ug/g 0-120 [facility] Comment on above: Concentration Interp retation Follow-Up< 5 - 50 ug/g Normal None>50 -120 ug/g Borderline Re-evaluate in 4-6 weeks >120 ug/g Abnormal Repeat as clinically indicatedPerformed at: [facility] LabSmarp [address] [id number] Director: Frandy Pitts MD, Phone: [phone] CALCIFEDIOL ([id number])Ordered B y: Refrigeration Insulator on 03-04-2023 25-hydroxyvitamin D [Mass/Vol] 66.8 ng/mL Normal 30.0-100.0 [facility]; [facility] Work Phone: Comment on above: Vitamin D deficiency has been defined by the [place] of[place] and an Endocrine Society practice guideline as alevel of serum 25-OH vitamin D less than 20 ng/mL (1,2).The Endocrine Society went on to further define vitamin Dinsufficiency as a level between 21 and 29 ng/mL (2).1. IOM ([place] [employer]). 2010. Dietary reference intakes for calcium and D. [place]: The National Academies Press.2. Krystal MF, Ashtyn NC, Troy-Rufino FLEMING, et al. Evaluation, treatment, and prevention of vitamin D deficiency: an Endocrine Society clinical practice guideline. JCEM. 2010; 96(7):1911-30. PATIENT WAS FASTINGP ERFORMED BY: [facility] Zfildg[address] RoadDublin [place] [id number] CBC W/AUTO DIFF WBC (95897)O rdered By: Refrigeration Insulator on 03-04-2023 Basophils (Bld) [#/Vol] 0.1 10*3/uL Normal 0.0-0.2 [facility]; [facility] Work Phone: Comment on above: PATIENT WAS FASTINGP ERFORMED BY: RUBEN Amaro[address]blin [place] [id number]; has fu 9-5-23 Basophils/100 WBC (Bld) 1 % Normal [facility]; [facility] Work Phone: Comment on above: PATIENT WAS FASTINGP ERFORMED BY: RUBEN Labmanan Osbuqu8[address] RoadUnc Health Pardeein [place] [id number]; has fu 9-- Eosinophils (Bld) [#/Vol] 0.2 10*3/uL Normal 0.0-0.4 [facility]; [facility] Work Phone: Comment on above: PATIENT WAS FASTINGP ERFORMED BY: RUBEN Andrew Akexud[address] RoadUnc Health Pardeein [place] [id number]; has fu 9--23 Eosinophils/100 WBC (Bld) 3 % Normal [facility]; [facility] Work Phone: Comment on above: PATIENT WAS FASTINGP ERFORMED BY: RUBEN Trevinolin[address] [facility] [place] [id number]; has fu 9-23 Erythrocyte distribution width (RBC) [Ratio] 12.9 % Normal 11.7-15.4 [facility]; [facility] Work Phone: Comment on above: PATIENT WAS FASTINGP ERFORMED BY: RUBEN [facility] Wiella[address] [facility]in [place] [id number]; has fu 9-- Hematocrit (Bld) [Volume fraction] 41.1 % Normal 34.0-46.6 [facility]; [facility] Work Phone: Comment on above: PATIENT WAS FASTINGP ERFORMED BY: RUBEN Labco Jofkms[address] RoadUnc Health Pardeein [place] [id number]; has fu 9--23 Hemoglobin (Bld) [Mass/Vol] 13.8 g/dL Normal 11.1-15.9 [facility]; [facility] Work Phone: Comment on above: PATIENT WAS FASTINGP ERFORMED BY: RUBEN Am[address] [facility] [place] [id number]; has fu 9-5-23 Immature granulocytes (Bld) [#/Vol] 0.0 10*3/uL Normal 0.0-0.1 [facility]; [facility] Work Phone: Comment on above: PATIENT WAS FASTINGP ERFORMED BY: RUBEN Trevinolin[address] [facility] [place] [id number]; has fu 9-5-23 Immature granulocytes/100 WBC (Bld) 0 % Normal [facility]; [facility] Work Phone: Comment on above: PATIENT WAS FASTINGP ERFORMED BY: RUBEN Angy [address] [facility] [id number]; has fu 9-5-23 Lymphocytes (Bld) [#/Vol] 1.5 10*3/uL Normal 0.7-3.1 [facility]; [facility] Work Phone: Comment on above: PATIENT WAS FASTINGP ERFORMED BY: RUBEN [address] [facility] [id number]; has fu 9-5-23 Lymphocytes/100 WBC (Bld) 20 % Normal [facility]; [facility] Work Phone: Comment on above: PATIENT WAS FASTINGP ERFORMED BY: RUBEN [address] [facility] [id number]; has fu 9-5-23 MCH (RBC) [Entitic mass] 31.7 pg Normal 26.6-33.0 [facility]; [facility] Work Phone: Comment on above: PATIENT WAS FASTINGP ERFORMED BY: RUBEN [address] [facility] [id number]; has fu 9-5-23 MCHC (RBC) [Mass/Vol] 33.6 g/dL Normal 31.5-35.7 [facility]; [facility] Work Phone: Comment on above: PATIENT WAS FASTINGP ERFORMED BY: RUBEN Amaro[address] RoadDublin [place] [id number]; has fu 9-5-23 MCV (RBC) [Entitic vol] 94 fL Normal 79-97 [facility]; [facility] Work Phone: Comment on above: PATIENT WAS FASTINGP ERFORMED BY: RUBEN Angy Amaro[address]Dublin [place] [id number]; has fu 9-5-23 Monocytes (Bld) [#/Vol] 0.6 10*3/uL Normal 0.1-0.9 [facility]; [facility] Work Phone: Comment on above: PATIENT WAS FASTINGP ERFORMED BY: RUBEN Angy Amaro[address]ublin [place] [id number]; has fu 9-5-23 Monocytes/100 WBC (Bld) 8 % Normal [facility]; [facility] Work Phone: Comment on above: PATIENT WAS FASTINGP ERFORMED BY: RUBEN Angy Amaro[address]Dublin [place] [id number]; has fu 9-5-23 Neutrophils (Bld) [#/Vol] 5.0 10*3/uL Normal 1.4-7.0 [facility]; [facility] Work Phone: Comment on above: PATIENT WAS FASTINGP ERFORMED BY: RUBEN Angy Amaro[address]Dublin [place] [id number]; has fu 9-5-23 Neutrophils/100 WBC (Bld) 68 % Normal [facility]; [facility] Work Phone: Comment on above: PATIENT WAS FASTINGP ERFORMED BY: RUBEN Trevinolin[address]Dublin [place] [id number]; has fu 9-5-23 Platelets (Bld) [#/Vol] 349 10*3/uL Normal 150-450 [facility]; [facility] Work Phone: Comment on above: PATIENT WAS FASTINGP ERFORMED BY: RUBEN [facility] Fqxylv[address] RoadDublin [place] [id number]; has fu 9-- RBC (Bld) [#/Vol] 4.36 10*6/uL Normal 3.77-5.28 Compr [facility]; [facility] Work Phone: Comment on above: PATIENT WAS FASTINGP ERFORMED BY: RUBEN [facility] Mpxddk8[address] RoadDublin [place] [id number]; has fu 9-- WBC (Bld) [#/Vol] 7.4 10*3/uL Normal 3.4-10.[address] [facility]; [facility] Work Phone: Comment on above: PATIENT WAS FASTINGP ERFORMED BY: RUBEN [facility] Eplkos[address] RoadDublin [place] [id number]; has fu -12-03 HEPATIC FUNCTION PANEL ([id number])Ordered By: Refrigeration Insulator on 03-04-2023 Bilirubin.direct [Mass/Vol] 0.13 mg/dL Normal 0.00-0.40 [facility]; [facility] Work Phone: Comment on above: do December 2022; LUZMA SANTANAJEANA WAS FASTINGPERFORMED BY: RUBEN [facility] Zxmiot[address]Dublin [place] [id number] LIPID PANEL ([id number])Ordered B y: Refrigeration Insulator on 03-04-2023 Cholesterol [Mass/Vol] 210 mg/dL Abnormal 100-199 [facility]; [facility] Work Phone: Comment on above: do in mid december 2022; PATIENT WAS FASTINGPERFORMED BY: RUBEN [facility] Efmslp[address]Dublin [place] [id number] Cholesterol in HDL [Mass/Vol] 68 mg/dL Normal [facility]; [facility] Work Phone: Comment on above: do in December 2022; PATIENT WAS FASTINGPERFORMED BY: RUBEN [facility] Qnrkaw[address] RoadDublin [place] [id number] Triglyceride [Mass/Vol] 123 mg/dL Normal 0-149 [facility]; [facility] Work Phone: Comment on above: do in December 2022; PATIENT WAS FASTINGPERFORMED BY: RUBEN [facility] Bsdyus[address]Dublin [place] [id number] LIPID PANEL (37324) 22 mg/dL Normal 5-40 [facility]; [facility] Work Phone: Comment on above: do in December 2022; PATIENT WAS FASTINGPERFORMED BY: RUBEN [facility] Ecrsdl[address]bl[address] [place] [id number] LIPID PANEL (29179) 120 mg/dL Abnormal 0-99 [facility]; [facility] Work Phone: Comment on above: do in December 2022; PATIENT WAS FASTINGPERFORMED BY: RUBEN Labparker TrevinoKmkqtv[address]blin [place] [id number] LIPID PANEL (20843) 1.8 {ratio} Normal 0.0-3.2 [facility]; [facility] Work Phone: Comment on above: LDL/HDL Ratio Men Wo men 1/2 Avg.Risk 1.0 1.5 Avg.Risk 3.6 3.2 2X Avg.Risk 6.2 5.0 3X Avg.Risk 8.0 6.1 do in December 2022; PATIENT WAS FASTINGPERFORMED BY: RUBEN Labparker [address]jg[address] [facility] [place] [id number] METABOLIC PANEL, COMPREHENSI VE ([id number])Ordered By: Refrigeration Insulator on 03-04-2023 Albumin [Mass/Vol] 4.8 g/dL Normal 3.8-4.9 [facility]; [facility] Work Phone: Comment on above: PATIENT WAS FASTINGP ERFORMED BY: RUBEN [facility] [address] [facility] HospitalD[facility] [place] [id number] Albumin/Globulin [Mass ratio] 1.7 {ratio} Normal 1.2-2.2 [facility]; [facility] Work Phone: Comment on above: PATIENT WAS FASTINGP ERFORMED BY: RUBEN [facility] [address]umwm[address] [facility]bl[facility] [place] [id number] ALP [Catalytic activity/Vol] 139 U/L Abnormal 44-121 [facility]; [facility] Work Phone: Comment on above: PATIENT WAS FASTINGP ERFORMED BY: CB [facility] Gjodhz[address]Dublin [place] [id number] ALT [Catalytic activity/Vol] 26 U/L Normal 0-32 [facility]; [facility] Work Phone: Comment on above: PATIENT WAS FASTINGP ERFORMED BY: CB [facility] Dbvonb52[address]Dublin [place] [id number] AST [Catalytic activity/Vol] 23 U/L Normal 0-40 [facility]; [facility] Work Phone: Comment on above: PATIENT WAS FASTINGP ERFORMED BY: CB [facility] Gamalh[address]Dublin [place] [id number] Bilirubin [Mass/Vol] 0.5 mg/dL Normal 0.0-1.2 Comp rehensive [facility]; [facility] Work Phone: Comment on above: PATIENT WAS FASTINGP ERFORMED BY: CB [facility] Otkmdu68[address]Dublin [place] [id number] Calcium [Mass/Vol] 10.2 mg/dL Normal 8.7-10.2 [facility]; [facility] Work Phone: Comment on above: PATIENT WAS FASTINGP ERFORMED BY: CB [facility] Rprlgl[address]Dublin [place] [id number] Chloride [Moles/Vol] 97 mmol/L Normal 96-106 [facility]; [facility] Work Phone: Comment on above: PATIENT WAS FASTINGP ERFORMED BY: CB [facility] Mbxxow38[address]Dublin [place] [id number] CO2 [Moles/Vol] 27 mmol/L Normal 20-29 [facility]; [facility] Work Phone: Comment on above: PATIENT WAS FASTINGP ERFORMED BY: CB [facility] Ykflsv[address] RoadDublin [place] [id number] Creatinine [Mass/Vol] 0.95 mg/dL Normal 0.57-1.00 [facility]; [facility] Work Phone: Comment on above: PATIENT WAS FASTINGP ERFORMED BY: RUBEN Labco Thhozg4622 [facility] [id number] GFR/1.73 sq M.predicted among non-blacks MDRD (S/P/Bld) [Vol rate/Area] 71 mL/min/{1.73_m2} Normal Comprehensiv e Internal Medicine; [facility] Work Phone: Comment on above: PATIENT WAS FASTINGP ERFORMED BY: [facility] Jtqhar3884 [facility] [id number] Globulin (S) [Mass/Vol] 2.9 g/dL Normal 1.5-4.5 [facility]; [facility] Work Phone: Comment on above: PATIENT WAS FASTINGP ERFORMED BY: [facility]6370 [facility] [id number] Glucose [Mass/Vol] 99 mg/dL Normal 70-99 [facility]; [facility] Work Phone: Comment on above: PATIENT WAS FASTINGP ERFORMED BY: [facility] Jqkisw5970 [facility] [id number] Potassium [Moles/Vol] 4.4 mmol/L Normal 3.5-5.2 [facility]; [facility] Work Phone: Comment on above: PATIENT WAS FASTINGP ERFORMED BY: [facility] Vjrzsr6666 [facility] [id number] Protein [Mass/Vol] 7.7 g/dL Normal 6.0-8.5 [facility] hens[facility]; [facility] Work Phone: Comment on above: PATIENT WAS FASTINGP ERFORMED BY: [facility] Imlsbz8924 [facility] [id number] Sodium [Moles/Vol] 140 mmol/L Normal 134-144 [facility] hens[facility]; [facility] Work Phone: Comment on above: PATIENT WAS FASTINGP ERFORMED BY: RUBEN [facility] Rpbjjy3710 [address] RoadDublin [place] [id number] Urea nitrogen [Mass/Vol] 16 mg/dL Normal 6-24 [facility]; [facility] Work Phone: Comment on above: PATIENT WAS FASTINGP ERFORMED BY: RUBEN [facility] Asfhtt2893 [address] RoadDublin [place] [id number] Urea nitrogen/Creatinine [Mass ratio] 17 mg/mg Normal 9-23 [facility]; [facility] Work Phone: Comment on above: PATIENT WAS FASTINGP ERFORMED BY: RUBEN [facility] Cfibmg4584 [address] RoadDublin [place] [id number] MICROALBUMINOrdered By: Syst em Business Sales Consultant on 03-04-2023 Albumin DL <= 20 mg/L (U) [Mass/Vol] mg/dL Normal [facility]; [facility] Work Phone: Comment on above: PATIENT WAS FASTINGP ERFORMED BY: RUBEN [facility] Soasmf4450 [address] RoadDublin [place] [id number] Albumin/Creatinine (U) [Mass ratio] <6 Normal 0-29 [facility]; [facility] Work Phone: Comment on above: Normal: 0 - 29 Moder ately increased: 30 - 300 Severely increased: >300 PATIENT WAS FASTINGP ERFORMED BY: RUBEN [facility] Luusay0927 [address] RoadDublin [place] [id number] Creatinine (U) [Mass/Vol] 52.7 mg/dL Normal [facility]; [facility] Work Phone: Comment on above: PATIENT WAS FASTINGP ERFORMED BY: RUBEN [facility] Gvcuvf8053 [address] RoadDublin [place] [id number] TSH ([id number])Ordered By: Letitia m Business Sales Consultant on 03-04-2023 TSH Qn 2.600 {uIU/mL} Normal 0.450-4.500 [facility] Internal Medicine; [facility] Work Phone: Comment on above: PATIENT WAS FASTINGP ERFORMED BY: RUBEN [facility] Tukray3943 [address] RoadDublin [place] [id number] URINALYSIS, W/ MICRO ([id number]) Ordered By: Refrigeration Insulator on 03-04-2023 Appearance (U) Clear Normal Comprehens иван Internal Medicine; [facility] Work Phone: Comment on above: PATIENT WAS FASTINGP ERFORMED BY: RUBEN Angy Trevinolin6370 [address] RoadDublin [place] [id number] Bilirubin Ql (U) Negative Normal Comprehe nsive Internal Medicine; [facility] Work Phone: Comment on above: PATIENT WAS FASTINGP ERFORMED BY: RUBEN Labparker TrevinoDyfsil5702 [address] RoadDublin [place] [id number] Color (U) Yellow Normal [facility]; [facility] Work Phone: Comment on above: PATIENT WAS FASTINGP ERFORMED BY: RUBEN Labmananhiro Fdszjj6389 [address] RoadDublin [place] [id number] Glucose Ql (U) Negative Normal Comprehens иван Internal Medicine; [facility] Work Phone: Comment on above: PATIENT WAS FASTINGP ERFORMED BY: RUBEN Labparker TrevinoLjqtep5969 [address] RoadDublin [place] [id number] Hemoglobin Ql (U) Negative Normal Compreh ensive Internal Medicine; [facility] Work Phone: Comment on above: PATIENT WAS FASTINGP ERFORMED BY: RUBEN Lorriehiro TrevinoCliibz4365 [address] RoadDublin [place] [id number] Ketones Ql (U) Negative Normal Comprehens иван Internal Medicine; [facility] Work Phone: Comment on above: PATIENT WAS FASTINGP ERFORMED BY: RUBEN Labp[facility] TrevinoMomqmn9767 [address] RoadDublin [place] [id number] Leukocyte esterase Test strip Ql (U) Negative Normal [facility]; [facility] Work Phone: Comment on above: PATIENT WAS FASTINGP ERFORMED BY: RUBEN Melodyparker Vvsmhi5121 [address] RoadDublin [place] [id number] Microscopic observation LM Nom (Urine sed) MICRON Normal [facility]; [facility] Work Phone: Comment on above: Microscopic follows if indicated. PATIENT WAS FASTINGP ERFORMED BY: RUBEN Amaro[address] [facility]bl[facility] [place] [id number] Microscopic observation LM Nom (Urine sed) See below: Normal [facility]; [facility] Work Phone: Comment on above: Microscopic was evita cated and was performed. PATIENT WAS FASTINGP ERFORMED BY: RUBEN Angy Amaro[address] [facility]in [place] [id number] Nitrite Ql (U) Negative Normal Comprehens иван Internal Medicine; [facility] Work Phone: Comment on above: PATIENT WAS FASTINGP ERFORMED BY: RUBEN Angy Amaro[address] [facility]in [place] [id number] pH (U) 7.0 [pH] Normal 5.0-7.5 [facility]; [facility] Work Phone: Comment on above: PATIENT WAS FASTINGP ERFORMED BY: RUBEN Lorrie Zaadxs[address] [facility]in [place] [id number] Protein Ql (U) Negative Normal Comprehens иван Internal Medicine; [facility] Work Phone: Comment on above: PATIENT WAS FASTINGP ERFORMED BY: RUBEN Angy Amaro6370 [facility]in [place] [id number] Specific gravity (U) [Rel density] 1.010 1 Normal 1.005-1.030 [facility]; [facility] Work Phone: Comment on above: PATIENT WAS FASTINGP ERFORMED BY: RUBEN Andrew Qfhtwc[address] [facility]in [place] [id number] Urobilinogen (U) [Mass/Vol] 0.2 mg/dL Normal 0.2-1.0 [facility]; [facility] Work Phone: Comment on above: PATIENT WAS FASTINGP ERFORMED BY: RUBEN Andrew Trweco[address] [facility] HospitalDublin [place] [id number] LIPID PANEL ([id number])Ordered B y: Refrigeration Insulator on 10-24-2022 Cholesterol [Mass/Vol] 247 mg/dL Abnormal 100-199 [facility]; [facility] Work Phone: Comment on above: PATIENT WAS FASTINGP ERFORMED BY: RUBEN Labcohiro TrevinoWzzwqh94[address] [facility]in [place] [id number] Cholesterol in HDL [Mass/Vol] 66 mg/dL Normal [facility]; [facility] Work Phone: Comment on above: PATIENT WAS FASTINGP ERFORMED BY: RUBEN Labcohiro Letnqn1452 [address] [facility] [place] [id number] Triglyceride [Mass/Vol] 103 mg/dL Normal 0-149 [facility]; [facility] Work Phone: Comment on above: PATIENT WAS FASTINGP ERFORMED BY: RUBEN Labcohiro TrevinoAzsecf[address] [facility] [place] [id number] LIPID PANEL ([id number]) 18 mg/dL Normal 5-40 Compr ensive Internal Medicine; [facility] Work Phone: Comment on above: PATIENT WAS FASTINGP ERFORMED BY: RUBEN Labparker TrevinoUggfyw2208 [facility] [id number] LIPID PANEL (02368) 163 mg/dL Abnormal 0-99 Compr ensive Internal Medicine; [facility] Work Phone: Comment on above: PATIENT WAS FASTINGP ERFORMED BY: RUBEN Labparker TrevinoTsdkbi6805 [facility] [id number] LIPID PANEL (46350) 2.5 {ratio} Normal 0.0-3.2 Comp [facility]; [facility] Work Phone: Comment on above: LDL/HDL Ratio Men Wo men 1/2 Avg.Risk 1.0 1.5 Avg.Risk 3.6 3.2 2X Avg.Risk 6.2 5.0 3X Avg.Risk 8.0 6.1 PATIENT WAS FASTINGP ERFORMED BY: RUBEN [facility] Ttmmjc3671 [facility]in [place] [id number] LIPID PANEL (66283)Ordered B y: Refrigeration Insulator on 07-11-2022 Cholesterol [Mass/Vol] 243 mg/dL Abnormal 100-199 [facility]; [facility] Work Phone: Comment on above: PATIENT WAS FASTINGP ERFORMED BY: RUBEN [facility] Jhgmbm6893 [address] RoadDublin [place] [id number] Cholesterol in HDL [Mass/Vol] 70 mg/dL Normal [facility]; [facility] Work Phone: Comment on above: PATIENT WAS FASTINGP ERFORMED BY: RUBEN [facility] Bquboh5408 [address] RoadDublin [place] [id number] Triglyceride [Mass/Vol] 98 mg/dL Normal 0-149 [facility]; [facility] Work Phone: Comment on above: PATIENT WAS FASTINGP ERFORMED BY: RUBEN [facility] Ssyemf8000 [address] RoadDublin [place] [id number] LIPID PANEL (73025) 17 mg/dL Normal 5-40 [facility]; [facility] Work Phone: Comment on above: PATIENT WAS FASTINGP ERFORMED BY: RUBEN Labcohiro TrevinoLlgpov4294 [address] RoadDublin [place] [id number] LIPID PANEL (64538) 156 mg/dL Abnormal 0-99 [facility]; [facility] Work Phone: Comment on above: PATIENT WAS FASTINGP ERFORMED BY: RUBEN [facility] Sccpcb3523 [address] RoadDublin [place] [id number] LIPID PANEL (55368) 2.2 {ratio} Normal 0.0-3.2 [facility]; [facility] Work Phone: Comment on above: LDL/HDL Ratio Men Wo men 1/2 Avg.Risk 1.0 1.5 Avg.Risk 3.6 3.2 2X Avg.Risk 6.2 5.0 3X Avg.Risk 8.0 6.1 PATIENT WAS FASTINGP ERFORMED BY: RUBEN [facility] Ltwrkd2152 [address] RoadDublin [place] [id number] Metabolic Panel, Basic (8004 [id number])Ordered By: Refrigeration Insulator on 07-11-2022 Calcium [Mass/Vol] 9.9 mg/dL Normal 8.7-10.2 [facility] Internal Medicine; [facility] Work Phone: Comment on above: PATIENT WAS FASTINGP ERFORMED BY: RUBEN [facility] Keszpu9230 [address] RoadDublin [place] [id number] Chloride [Moles/Vol] 98 mmol/L Normal 96-106 [facility] rehensive Internal Medicine; [facility] Work Phone: Comment on above: PATIENT WAS FASTINGP ERFORMED BY: RUBEN [facility] Invqpv8516 [address] RoadDublin [place] [id number] CO2 [Moles/Vol] 25 mmol/L Normal 20-29 Comprehen [facility] Internal Medicine; [facility] Work Phone: Comment on above: PATIENT WAS FASTINGP ERFORMED BY: RUBEN [facility] Gasxeq6508 [address] Roadblin [place] [id number] Creatinine [Mass/Vol] 0.86 mg/dL Normal 0.57-1.00 [facility] pre[facility]; [facility] Work Phone: Comment on above: PATIENT WAS FASTINGP ERFORMED BY: RUBEN [facility] Hieopq8036 [address] RoadSentara [facility]em[facility] [id number] GFR/1.73 sq M.predicted among non-blacks MDRD (S/P/Bld) [Vol rate/Area] 80 mL/min/{1.73_m2} Normal Comprehensiv e Internal Medicine; [facility] Work Phone: Comment on above: PATIENT WAS FASTINGP ERFORMED BY: RUBEN [facility] Hwwqsi[address] [facility]in [place] [id number] Glucose [Mass/Vol] 87 mg/dL Normal 70-99 [facility] Internal Medicine; [facility] Work Phone: Comment on above: PATIENT WAS FASTINGP ERFORMED BY: RUBEN [facility] Wnlixu9024 [address] RoadDublin [place] [id number] Potassium [Moles/Vol] 4.3 mmol/L Normal 3.5-5.2 [facility]; [facility] Work Phone: Comment on above: PATIENT WAS FASTINGP ERFORMED BY: RUBEN [facility] Vqgacm5779 [address] RoadDublin [place] [id number] Sodium [Moles/Vol] 138 mmol/L Normal 134-[address] [facility] Internal Medicine; [facility] Work Phone: Comment on above: PATIENT WAS FASTINGP ERFORMED BY: [facility] Wkwhfo0767 [facility] [id number] Urea nitrogen [Mass/Vol] 16 mg/dL Normal 6-24 [facility]; [facility] Work Phone: Comment on above: PATIENT WAS FASTINGP ERFORMED BY: ImmunoGenpers[facility] Tuvuay7565 [facility] [id number] Urea nitrogen/Creatinine [Mass ratio] 19 mg/mg Normal 9-23 [facility]; [facility] Work Phone: Comment on above: PATIENT WAS FASTINGP ERFORMED BY: ImmunoGenpers[facility] hospital Btifpk0952 [place] [employer] BioSciencesSentara Albem[facility] [id number] Cervical or vagninal specime n microscopic examination by cytology stain (reported ason 04-22-2022 Cytology report Cyto stain Doc (Cvx/Vag) Comment . [facility] Work Phone: Comment on above: The Pap smear is a s creening test designed to aid in thedetection of premalignant and malignant conditions of theuterine cervix. It is not a diagnostic procedure andshould not be used as the sole means of detecting cervicalcancer. Both false-positive and false-negative reports dooccur. Detection in cervical specim en of any of human papilloma virus (HPV) 16, 18, 31, 33,on 04-22-2022 HPV 16+18+31+33+35+39+45+ 51+52+56+58+59+66+68 DNA Probe+sig amp Ql (Cvx) Negative Negative [facility] Work Phone: Comment on above: This nucleic acid am plification test detects fourteen high- risk HPV types (16,18,31,33,35,39,45,51,52,56,58,59,66,68)without differentiation.Performed at: [address] [id number] Director: Bess Cross MD, Phone: [phone] at: =[facility] [address] [place] [id number] Director: Bess Cross MD, Phone: [phone] Laboratory - Cytologyon 04-13 Doughmaker Cyto stain Nom (Cvx/Vag) [ID] Comment . [facility] Work Phone: Comment on above: Gino Tenorio, Cytotec hnologist (ASCP) Recommended follow-up Cyto stain Nom (Cvx/Vag) Comment . [facility] Work Phone: Comment on above: Suggest follow up as clinically appropriate. Laboratory - Miscellaneous t estson 04-22-2022 Service comment (Unsp spec) [Interp] TNP [facility] Work Phone: Comment on above: Test not performedTh e Thin Prep(R) Iron Miner was unable to read this specimen.Therefore a manual review was performed. Service comment (Unsp spec) [Interp] . . [facility] Work Phone: No Panel Informationon 04-22 Pap Smear QC Review Comment . [facility] Work Phone: Comment on above: Yessi Watson, Cyto technologist Pap Smear Specimen Adequacy Comment . [facility] Work Phone: Comment on above: Specimen processed a nd examined but unsatisfactory for evaluation ofepithelial abnormality because of insufficient cellularity. Pathology report final diagnosis Narrative Comment . [facility] Work Phone: Comment on above: UNSATISFACTORY FOR E VALUATION. CALCIFIDIOL (77076) VIT D 25 Ordered By: Refrigeration Insulator on 01-11-2022 25-hydroxyvitamin D [Mass/Vol] 61.1 ng/mL Normal 30.0-100.0 [facility]; [facility] Work Phone: Comment on above: Vitamin D deficiency has been defined by the [place] of[place]icine and an Endocrine Society practice guideline as alevel of serum 25-OH vitamin D less than 20 ng/mL (1,2).The Endocrine Society went on to further define vitamin Dinsufficiency as a level between 21 and 29 ng/mL (2).1. IOM ([place] of Medicine). 2010. Dietary reference intakes for calcium and D. [place]: The National Academies Press.2. Krystal MF, Ashtyn NC, Cassandra FLEMING, et al. Evaluation, treatment, and prevention of vitamin D deficiency: an Endocrine Society clinical practice guideline. JCEM. 2010; 96(7):1911-30. PATIENT WAS FASTINGP ERFORMED BY: [facility] Vsgxyk4708 [address] RoadDublin [place] [id number] CBC W/AUTO DIFF WBC ([id number])O rdered By: Refrigeration Insulator on 01-11-2022 Basophils (Bld) [#/Vol] 0.0 10*3/uL Normal 0.0-0.2 [facility]; [facility] Work Phone: Comment on above: PATIENT WAS FASTINGP ERFORMED BY: [facility] Ewkvhx8556 [address] RoadDublin [place] [id number] Basophils/100 WBC (Bld) 1 % Normal [facility]; [facility] Work Phone: Comment on above: PATIENT WAS FASTINGP ERFORMED BY: [facility] Oxliod1695 [address] RoadDublin [place] [id number] Eosinophils (Bld) [#/Vol] 0.3 10*3/uL Normal 0.0-0.4 [facility]; [facility] Work Phone: Comment on above: PATIENT WAS FASTINGP ERFORMED BY: [facility] Xivqbc1726 [address] RoadDublin [place] [id number] Eosinophils/100 WBC (Bld) 4 % Normal [facility]; [facility] Work Phone: Comment on above: PATIENT WAS FASTINGP ERFORMED BY: Tiggly [facility] Jejuqk1331 [address] RoadDublin [place] [id number] Erythrocyte distribution width (RBC) [Ratio] 13.0 % Normal 11.7-15.4 [facility]; [facility] Work Phone: Comment on above: PATIENT WAS FASTINGP ERFORMED BY: [facility] Swpoxv3122 [address] RoadDublin [place] [id number] Hematocrit (Bld) [Volume fraction] 36.5 % Normal 34.0-46.6 [facility]; [facility] Work Phone: Comment on above: PATIENT WAS FASTINGP ERFORMED BY: RUBEN Amaro[address] [facility]in [place] [id number] Hemoglobin (Bld) [Mass/Vol] 12.1 g/dL Normal 11.1-15.9 [facility]; [facility] Work Phone: Comment on above: PATIENT WAS FASTINGP ERFORMED BY: Labpers[facility] Sacsyj[address] [facility]in [place] [id number] Immature granulocytes (Bld) [#/Vol] 0.0 10*3/uL Normal 0.0-0.1 [facility]; [facility] Work Phone: Comment on above: PATIENT WAS FASTINGP ERFORMED BY: Melodypers[facility] hospital Hffhef4871 [address] RoadSentara Albemarle Medical Center [id number] Immature granulocytes/100 WBC (Bld) 0 % Normal [facility]; [facility] Work Phone: Comment on above: PATIENT WAS FASTINGP ERFORMED BY: Labpers[facility] Rykeya[address] [facility]in [place] [id number] Lymphocytes (Bld) [#/Vol] 1.9 10*3/uL Normal 0.7-3.1 [facility]; [facility] Work Phone: Comment on above: PATIENT WAS FASTINGP ERFORMED BY: [facility] [facility] [id number] Lymphocytes/100 WBC (Bld) 30 % Normal [facility]; [facility] Work Phone: Comment on above: PATIENT WAS FASTINGP ERFORMED BY: Labco Bpdziz[address] [facility]blin [place] [id number] MCH (RBC) [Entitic mass] 31.7 pg Normal 26.6-33.0 [facility]; [facility] Work Phone: Comment on above: PATIENT WAS FASTINGP ERFORMED BY: Labpershing memorial [facility] Mysuwd[address] [facility] [id number] MCHC (RBC) [Mass/Vol] 33.2 g/dL Normal 31.5-35.7 [facility] prehensive [facility]; [facility] Work Phone: Comment on above: PATIENT WAS FASTINGP ERFORMED BY: RUBEN Melodycohiro AmaroPbqmnz9089 [address] RoadFishblin [place] [id number] MCV (RBC) [Entitic vol] 96 fL Normal 79-97 [facility]; [facility] Work Phone: Comment on above: PATIENT WAS FASTINGP ERFORMED BY: RUBEN [facility] Taqacp[address] [facility] [id number] Monocytes (Bld) [#/Vol] 0.5 10*3/uL Normal 0.1-0.9 [facility]; [facility] Work Phone: Comment on above: PATIENT WAS FASTINGP ERFORMED BY: RUBEN Labcohiro TrevnioNsvbks[address] [facility] [id number] Monocytes/100 WBC (Bld) 8 % Normal [facility]; [facility] Work Phone: Comment on above: PATIENT WAS FASTINGP ERFORMED BY: RUBEN Labcohiro Dseyvz[address] [facility]in [place] [id number] Neutrophils (Bld) [#/Vol] 3.7 10*3/uL Normal 1.4-7.0 [facility]; [facility] Work Phone: Comment on above: PATIENT WAS FASTINGP ERFORMED BY: RUBEN [facility] Qywbpk6032 [address] RoadSentara Albemarle [facility] [id number] Neutrophils/100 WBC (Bld) 57 % Normal [facility]; [facility] Work Phone: Comment on above: PATIENT WAS FASTINGP ERFORMED BY: RUBEN [facility] Tchvic[address] [facility]bl[facility] [place] [id number] Platelets (Bld) [#/Vol] 307 10*3/uL Normal 150-450 [facility]; [facility] Work Phone: Comment on above: PATIENT WAS FASTINGP ERFORMED BY: RUBEN [facility] Omvjsa[address] [facility]in [place] [id number] RBC (Bld) [#/Vol] 3.82 10*6/uL Normal 3.77-5.28 [facility]; [facility] Work Phone: Comment on above: PATIENT WAS FASTINGP ERFORMED BY: RUBEN [facility] Mfhlrg7683 [address] RoadDublin [place] [id number] WBC (Bld) [#/Vol] 6.5 10*3/uL Normal 3.4-10.8 [facility] Internal Medicine; [facility] Work Phone: Comment on above: PATIENT WAS FASTINGP ERFORMED BY: RUBEN [facility] Pwpicj7485 [address] Roadblin [place] [id number] LIPID PANEL (43009)Ordered B y: Refrigeration Insulator on 01-11-2022 Cholesterol [Mass/Vol] 221 mg/dL Abnormal 100-199 [facility]; [facility] Work Phone: Comment on above: PATIENT WAS FASTINGP ERFORMED BY: Labmanan Bbvgrf[address] [facility]bl[facility] [place] [id number] Cholesterol in HDL [Mass/Vol] 66 mg/dL Normal [facility]; [facility] Work Phone: Comment on above: PATIENT WAS FASTINGP ERFORMED BY: Labmanan Nhjpbz[address] [facility]bl[facility] [place] [id number] Triglyceride [Mass/Vol] 122 mg/dL Normal 0-149 [facility]; [facility] Work Phone: Comment on above: PATIENT WAS FASTINGP ERFORMED BY: [facility] Jnwzax4901 [address] RoadDublin [place] [id number] LIPID PANEL (29214) 21 mg/dL Normal 5-40 [facility]; [facility] Work Phone: Comment on above: PATIENT WAS FASTINGP ERFORMED BY: [facility] Zbihoe4244 [address] RoadDublin [place] [id number] LIPID PANEL (25091) 134 mg/dL Abnormal 0-99 [facility]; [facility] Work Phone: Comment on above: PATIENT WAS FASTINGP ERFORMED BY: CB [facility] Ighkws[address]7 [address] RoadDublin [place] [id number] LIPID PANEL (93689) 2.0 {ratio} Normal 0.0-3.2 [facility] Internal Medicine; [facility] Work Phone: Comment on above: LDL/HDL Ratio Men Wo men 1/2 Avg.Risk 1.0 1.5 Avg.Risk 3.6 3.2 2X Avg.Risk 6.2 5.0 3X Avg.Risk 8.0 6.1 PATIENT WAS FASTINGP ERFORMED BY: CB [facility] Qeqeia0102 [address] RoadDublin [place] [id number] METABOLIC PANEL, COMPREHENSI VE (80937)Ordered By: Refrigeration Insulator on 01-11-2022 Albumin [Mass/Vol] 4.3 g/dL Normal 3.8-4.9 [facility] Internal Medicine; [facility] Work Phone: Comment on above: PATIENT WAS FASTINGP ERFORMED BY: CB [facility] Qqjtln0477 [address] RoadDublin [place] [id number] Albumin/Globulin [Mass ratio] 1.7 {ratio} Normal 1.2-2.2 [facility]; [facility] Work Phone: Comment on above: PATIENT WAS FASTINGP ERFORMED BY: CB [facility] Wncxcx7772 [address] RoadDublin [place] [id number] ALP [Catalytic activity/Vol] 102 U/L Normal 44-121 [facility]; [facility] Work Phone: Comment on above: PATIENT WAS FASTINGP ERFORMED BY: CB [facility] Sagjdm6176 [address] RoadDublin [place] [id number] ALT [Catalytic activity/Vol] 16 U/L Normal 0-32 [facility]; [facility] Work Phone: Comment on above: PATIENT WAS FASTINGP ERFORMED BY: CB [facility] Uzqmyh5393 [address] RoadDublin [place] [id number] AST [Catalytic activity/Vol] 17 U/L Normal 0-40 [facility]; [facility] Work Phone: Comment on above: PATIENT WAS FASTINGP ERFORMED BY: CB [facility] Pkmxit1255 [address] RoadDublin [place] [id number] Bilirubin [Mass/Vol] 0.2 mg/dL Normal 0.0-1.2 Comp rehensive Internal Medicine; [facility] Work Phone: Comment on above: PATIENT WAS FASTINGP ERFORMED BY: CB [facility] Uykxtl4002 [address] RoadDublin [place] [id number] Calcium [Mass/Vol] 9.5 mg/dL Normal 8.7-10.2 [facility] Internal Medicine; [facility] Work Phone: Comment on above: PATIENT WAS FASTINGP ERFORMED BY: CB [facility] Gkuxuh7002 [address] RoadDublin [place] [id number] Chloride [Moles/Vol] 102 mmol/L Normal 96-106 Comp rehensive Internal Medicine; [facility] Work Phone: Comment on above: PATIENT WAS FASTINGP ERFORMED BY: CB [facility] Gjtdni9379 [address] RoadDublin [place] [id number] CO2 [Moles/Vol] 27 mmol/L Normal 20-29 Comprehen [facility] Internal Medicine; [facility] Work Phone: Comment on above: PATIENT WAS FASTINGP ERFORMED BY: CB [facility] Dthczn9913 [address] RoadDublin [place] [id number] Creatinine [Mass/Vol] 0.97 mg/dL Normal 0.57-1.00 [facility] pre[facility]ive Internal Medicine; [facility] Work Phone: Comment on above: PATIENT WAS FASTINGP ERFORMED BY: CB [facility] Mojerx1568 [address] RoadDublin [place] [id number] GFR/1.73 sq M.predicted among non-blacks MDRD (S/P/Bld) [Vol rate/Area] 70 mL/min/{1.73_m2} Normal Comprehensiv e Internal Medicine; [facility] Work Phone: Comment on above: PATIENT WAS FASTINGP ERFORMED BY: CB [facility] Ajfvmn5599 [address] RoadDublin [place] [id number] Globulin (S) [Mass/Vol] 2.5 g/dL Normal 1.5-4.5 [facility] Internal Medicine; [facility] Work Phone: Comment on above: PATIENT WAS FASTINGP ERFORMED BY: RUBEN Labp[facility] Amaro6370 [address] RoadDublin [place] [id number] Glucose [Mass/Vol] 97 mg/dL Normal 65-99 [facility] Internal Medicine; [facility] Work Phone: Comment on above: PATIENT WAS FASTINGP ERFORMED BY: RUBEN [facility] Giazwt5932 [address] [facility] [place] [id number] Potassium [Moles/Vol] 4.4 mmol/L Normal 3.5-5.2 [facility] Internal Medicine; [facility] Work Phone: Comment on above: PATIENT WAS FASTINGP ERFORMED BY: RUBEN [facility] Jfjych9929 [address] [facility] [place] [id number] Protein [Mass/Vol] 6.8 g/dL Normal 6.0-8.5 [facility] Internal Medicine; [facility] Work Phone: Comment on above: PATIENT WAS FASTINGP ERFORMED BY: RUBEN [facility] Uluixd4[address] [facility]in [place] [id number] Sodium [Moles/Vol] 143 mmol/L Normal 134-144 [facility] Internal Medicine; [facility] Work Phone: Comment on above: PATIENT WAS FASTINGP ERFORMED BY: [facility] Ehkwkm[address] [facility] [id number] Urea nitrogen [Mass/Vol] 22 mg/dL Normal 6-24 [facility] Internal Medicine; [facility] Work Phone: Comment on above: PATIENT WAS FASTINGP ERFORMED BY: RUBEN [facility] Xxzcsf3769 [address] [facility]blin [place] [id number] Urea nitrogen/Creatinine [Mass ratio] 23 mg/mg Normal 9-23 [facility]; [facility] Work Phone: Comment on above: PATIENT WAS FASTINGP ERFORMED BY: RUBEN [facility] Dxbfeb6692 [address] RoadDublin [place] [id number] MICROALBUMINOrdered By: [employer] em Business Sales Consultant on 01-11-2022 Albumin DL <= 20 mg/L (U) [Mass/Vol] 5.8 ug/mL Normal [facility]; [facility] Work Phone: Comment on above: PATIENT WAS FASTINGP ERFORMED BY: RUBEN Labcohiro TrevinoQnfqgw6582 [address] RoadDublin [place] [id number] Albumin/Creatinine (U) [Mass ratio] 10 {mg/g_creat} Normal 0-29 [facility]; [facility] Work Phone: Comment on above: Normal: 0 - 29 Moder ately increased: 30 - 300 Severely increased: >300 PATIENT WAS FASTINGP ERFORMED BY: RUBEN Labparker TrevinoKekpxc9514 [address] RoadDublin [place] [id number] Creatinine (U) [Mass/Vol] 59.3 mg/dL Normal [facility]; [facility] Work Phone: Comment on above: PATIENT WAS FASTINGP ERFORMED BY: RUBEN Labmanan Ociefo6055 [address] RoadDublin [place] [id number] TSH ([id number])Ordered By: [employer] m Business Sales Consultant on 01-11-2022 TSH Qn 3.390 {uIU/mL} Normal 0.450-4.500 Comprehen sive Internal Medicine; [facility] Work Phone: Comment on above: PATIENT WAS FASTINGP ERFORMED BY: RUBEN Labparker TrevinoDhlgnd0836 [address] RoadDublin [place] [id number] URINALYSIS, W/ MICRO ([id number]) Ordered By: Refrigeration Insulator on 01-11-2022 Appearance (U) Clear Normal Comprehens иван Internal Medicine; [facility] Work Phone: Comment on above: PATIENT WAS FASTINGP ERFORMED BY: RUBEN [facility] Dxmweq8188 [address] RoadDublin [place] [id number] Bilirubin Ql (U) Negative Normal Comprehe nsive Internal Medicine; [facility] Work Phone: Comment on above: PATIENT WAS FASTINGP ERFORMED BY: RUBEN [facility] Madsuj1439 [address] RoadDublin [place] [id number] Color (U) Yellow Normal [facility]; [facility] Work Phone: Comment on above: PATIENT WAS FASTINGP ERFORMED BY: RUBEN Melodyparker TrevinoWjthim5506 [facility] [id number] Glucose Ql (U) Negative Normal Comprehens иван Internal Medicine; [facility] Work Phone: Comment on above: PATIENT WAS FASTINGP ERFORMED BY: RUBEN Trevinolin6370 [facility] [id number] Hemoglobin Ql (U) Negative Normal Compreh ensive Internal Medicine; [facility] Work Phone: Comment on above: PATIENT WAS FASTINGP ERFORMED BY: RUBEN Melodyparker TrevinoTzyugh7384 [facility] [id number] Ketones Ql (U) Negative Normal Comprehens иван Internal Medicine; [facility] Work Phone: Comment on above: PATIENT WAS FASTINGP ERFORMED BY: RUBEN Trevinolin6370 [facility] [id number] Leukocyte esterase Test strip Ql (U) Trace Abnormal [facility]; [facility] Work Phone: Comment on above: PATIENT WAS FASTINGP ERFORMED BY: RUBEN Trevinolin6370 [facility] [id number] Microscopic observation LM Nom (Urine sed) See below: Normal [facility]; [facility] Work Phone: Comment on above: Microscopic was evita cated and was performed. PATIENT WAS FASTINGP ERFORMED BY: RUBEN Melodyparker Yxfkyt6963 [facility] [id number] Nitrite Ql (U) Negative Normal Comprehens иван Internal Medicine; [facility] Work Phone: Comment on above: PATIENT WAS FASTINGP ERFORMED BY: RUBEN Melodyparker Gsbcwd6942 [facility] [id number] pH (U) 6.0 [pH] Normal 5.0-7.5 [facility]; [facility] Work Phone: Comment on above: PATIENT WAS FASTINGP ERFORMED BY: RUBEN [facility] Sxagut[address] [facility]blin [place] [id number] Protein Ql (U) Negative Normal Comprehens иван Internal Medicine; [facility] Work Phone: Comment on above: PATIENT WAS FASTINGP ERFORMED BY: RUBEN [facility] Zrjdng[address] [facility]in [place] [id number] Specific gravity (U) [Rel density] 1.016 1 Normal 1.005-1.030 [facility]; [facility] Work Phone: Comment on above: PATIENT WAS FASTINGP ERFORMED BY: RUBEN LabFormer[facility] [facility]in [place] [id number] Urobilinogen (U) [Mass/Vol] 0.2 mg/dL Normal 0.2-1.0 [facility]; [facility] Work Phone: Comment on above: PATIENT WAS FASTINGP ERFORMED BY: RUBEN [facility] Kadves[address] [facility] [id number] VITAMIN B-12 (CYANOCOBALAMIN ) ([id number])Ordered By: Refrigeration Insulator on 02-02-2021 Cobalamin (Vitamin B12) [Mass/Vol] 1073 pg/mL Normal 232-1245 [facility]; [facility] Work Phone: Comment on above: PATIENT NOT FASTINGP ERFORMED BY: RUBEN LabMcl[facility]6370 [facility] [id number] CBC W/AUTO DIFF WBC (81253)O rdered By: Refrigeration Insulator on 01-12-2021 Basophils (Bld) [#/Vol] 0.0 10*3/uL Normal 0.0-0.2 [facility]; [facility] Work Phone: Comment on above: PATIENT WAS FASTINGP ERFORMED BY: RUBEN [facility] Jkfjzh[address] [facility]bl[facility] [place] [id number] Basophils/100 WBC (Bld) 1 % Normal [facility]; [facility] Work Phone: Comment on above: PATIENT WAS FASTINGP ERFORMED BY: LabMclaren Thumb Region[address] [facility] [id number] Eosinophils (Bld) [#/Vol] 0.1 10*3/uL Normal 0.0-0.4 [facility]; [facility] Work Phone: Comment on above: PATIENT WAS FASTINGP ERFORMED BY: RUBEN Lorrie Sxjsoc[address] [facility] [id number] Eosinophils/100 WBC (Bld) 2 % Normal [facility]; [facility] Work Phone: Comment on above: PATIENT WAS FASTINGP ERFORMED BY: RUBEN [facility]odyResearch [facility] Lnebrm8550 [facility] [id number] Erythrocyte distribution width (RBC) [Ratio] 11.8 % Normal 11.7-15.4 [facility]; [facility] Work Phone: Comment on above: PATIENT WAS FASTINGP ERFORMED BY: [facility] Zyoaxi[address] [facility] [id number] Hematocrit (Bld) [Volume fraction] 39.2 % Normal 34.0-46.6 [facility]; [facility] Work Phone: Comment on above: PATIENT WAS FASTINGP ERFORMED BY: [facility]odyResearch [facility] Zrgfhc8846 [facility] [id number] Hemoglobin (Bld) [Mass/Vol] 13.1 g/dL Normal 11.1-15.9 [facility]; [facility] Work Phone: Comment on above: PATIENT WAS FASTINGP ERFORMED BY: LabResearch [facility] Rftnnr[address] [facility] [id number] Immature granulocytes (Bld) [#/Vol] 0.0 10*3/uL Normal 0.0-0.1 [facility]; [facility] Work Phone: Comment on above: PATIENT WAS FASTINGP ERFORMED BY: LabResearch [facility] Lqbuml[address] [facility] [id number] Immature granulocytes/100 WBC (Bld) 0 % Normal [facility]; [facility] Work Phone: Comment on above: PATIENT WAS FASTINGP ERFORMED BY: [facility] [facility]in [place] [id number] Lymphocytes (Bld) [#/Vol] 1.6 10*3/uL Normal 0.7-3.1 [facility]; [facility] Work Phone: Comment on above: PATIENT WAS FASTINGP ERFORMED BY: [facility]6370 [facility] [id number] Lymphocytes/100 WBC (Bld) 34 % Normal [facility]; [facility] Work Phone: Comment on above: PATIENT WAS FASTINGP ERFORMED BY: [facility]6370 [facility] [id number] MCH (RBC) [Entitic mass] 32.6 pg Normal 26.6-33.0 [facility]; [facility] Work Phone: Comment on above: PATIENT WAS FASTINGP ERFORMED BY: [place] 2507270 [facility] [id number] MCHC (RBC) [Mass/Vol] 33.4 g/dL Normal 31.5-35.7 [facility] prehensive Internal Medicine; [facility] Work Phone: Comment on above: PATIENT WAS FASTINGP ERFORMED BY: [facility]6370 [facility]in [place] [id number] MCV (RBC) [Entitic vol] 98 fL Abnormal 79-97 [facility]; [facility] Work Phone: Comment on above: PATIENT WAS FASTINGP ERFORMED BY: [facility]6370 [facility] [id number] Monocytes (Bld) [#/Vol] 0.4 10*3/uL Normal 0.1-0.9 [facility]; [facility] Work Phone: Comment on above: PATIENT WAS FASTINGP ERFORMED BY: [facility] [facility] [place] [id number] Monocytes/100 WBC (Bld) 9 % Normal [facility]; [facility] Work Phone: Comment on above: PATIENT WAS FASTINGP ERFORMED BY: RUBEN [facility] Nbndwo6675 [address] RoadDublin [place] [id number] Neutrophils (Bld) [#/Vol] 2.5 10*3/uL Normal 1.4-7.0 [facility]; [facility] Work Phone: Comment on above: PATIENT WAS FASTINGP ERFORMED BY: CB [facility] Nqqdce4350 [address] RoadDublin [place] [id number] Neutrophils/100 WBC (Bld) 54 % Normal [facility]; [facility] Work Phone: Comment on above: PATIENT WAS FASTINGP ERFORMED BY: CB [facility] Tuzdkg9721 [address] RoadDublin [place] [id number] Platelets (Bld) [#/Vol] 276 10*3/uL Normal 150-450 [facility]; [facility] Work Phone: Comment on above: PATIENT WAS FASTINGP ERFORMED BY: CB [facility] Ytsnjj6217 [address] RoadDublin [place] [id number] RBC (Bld) [#/Vol] 4.02 10*6/uL Normal 3.77-5.28 Compr ensive Internal Medicine; [facility] Work Phone: Comment on above: PATIENT WAS FASTINGP ERFORMED BY: RUBEN [facility] Wsdfit9257 [address] RoadDublin [place] [id number] WBC (Bld) [#/Vol] 4.7 10*3/uL Normal 3.4-10.[address] [facility] Internal Medicine; [facility] Work Phone: Comment on above: PATIENT WAS FASTINGP ERFORMED BY: CB [facility] Ilzqvr2680 [address] RoadDublin [place] [id number] LIPID PANEL (71008)Ordered B y: Refrigeration Insulator on 01-12-2021 Cholesterol [Mass/Vol] 200 mg/dL Abnormal 100-199 [facility]; [facility] Work Phone: Comment on above: PATIENT WAS FASTINGP ERFORMED BY: CB [facility] Xtbhjx0513 [address] RoadDublin [place] [id number] Cholesterol in HDL [Mass/Vol] 75 mg/dL Normal [facility]; [facility] Work Phone: Comment on above: PATIENT WAS FASTINGP ERFORMED BY: RUBEN LabParker Amaro[address] [facility] [id number] Triglyceride [Mass/Vol] 72 mg/dL Normal 0-149 [facility]; [facility] Work Phone: Comment on above: PATIENT WAS FASTINGP ERFORMED BY: RUBEN [facility] [address]jtkwu[address] [facility] [id number] LIPID PANEL (36989) 13 mg/dL Normal 5-40 [facility]; [facility] Work Phone: Comment on above: PATIENT WAS FASTINGP ERFORMED BY: RUBEN LabParker TrevinoCiaqit6216 [facility] [id number] LIPID PANEL (22676) 112 mg/dL Abnormal 0-99 [facility]; [facility] Work Phone: Comment on above: PATIENT WAS FASTINGP ERFORMED BY: RUBEN [facility] Wqdcen9523 [facility] [id number] LIPID PANEL (88137) 1.5 {ratio} Normal 0.0-3.2 [facility]; [facility] Work Phone: Comment on above: LDL/HDL Ratio Men Wo men 1/2 Avg.Risk 1.0 1.5 Avg.Risk 3.6 3.2 2X Avg.Risk 6.2 5.0 3X Avg.Risk 8.0 6.1 PATIENT WAS FASTINGP ERFORMED BY: RUBEN [facility] Dmgxzr4538 [facility] [id number] METABOLIC PANEL, COMPREHENSI VE (06756)Ordered By: Refrigeration Insulator on 01-12-2021 Albumin [Mass/Vol] 4.9 g/dL Normal 3.8-4.9 [facility] Internal Medicine; [facility] Work Phone: Comment on above: PATIENT WAS FASTINGP ERFORMED BY: RUBEN [facility] Tweuxm[address] [facility] [id number] Albumin/Globulin [Mass ratio] 2.0 {ratio} Normal 1.2-2.2 [facility]; [facility] Work Phone: Comment on above: PATIENT WAS FASTINGP ERFORMED BY: RUBEN [facility] Oxgvhj7055 [address] RoadDublin [place] [id number] ALP [Catalytic activity/Vol] 79 U/L Normal 48-121 [facility]; [facility] Work Phone: Comment on above: PATIENT WAS FASTINGP ERFORMED BY: CB [facility] Lvipie5981 [address] RoadDublin [place] [id number] ALT [Catalytic activity/Vol] 19 U/L Normal 0-32 [facility]; [facility] Work Phone: Comment on above: PATIENT WAS FASTINGP ERFORMED BY: [facility] Lhnkwa3248 [address] RoadDublin [place] [id number] AST [Catalytic activity/Vol] 25 U/L Normal 0-40 [facility]; [facility] Work Phone: Comment on above: PATIENT WAS FASTINGP ERFORMED BY: [facility] Owwfwb3207 [address] RoadDublin [place] [id number] Bilirubin [Mass/Vol] 0.2 mg/dL Normal 0.0-1.2 [facility]; [facility] Work Phone: Comment on above: PATIENT WAS FASTINGP ERFORMED BY: [facility] Ufeljh4708 [address] RoadDublin [place] [id number] Calcium [Mass/Vol] 10.2 mg/dL Normal 8.7-10.2 [facility] Internal Medicine; [facility] Work Phone: Comment on above: PATIENT WAS FASTINGP ERFORMED BY: [facility] Cdntba2697 [address] RoadDublin [place] [id number] Chloride [Moles/Vol] 99 mmol/L Normal 96-106 [facility]ensive [facility]; [facility] Work Phone: Comment on above: PATIENT WAS FASTINGP ERFORMED BY: [facility] Giisii3843 [address] RoadDublin [place] [id number] CO2 [Moles/Vol] 25 mmol/L Normal 20-29 [facility] Internal [facility]; [facility] Work Phone: Comment on above: PATIENT WAS FASTINGP ERFORMED BY: [facility]6370 [facility] [id number] Creatinine [Mass/Vol] 0.90 mg/dL Normal 0.57-1.00 [facility] prehensive Internal Medicine; [facility] Work Phone: Comment on above: PATIENT WAS FASTINGP ERFORMED BY: [facility] Ewdyrl0197 [facility] [id number] GFR/1.73 sq M.predicted among blacks CKD-EPI (S/P/Bld) [Vol rate/Area] 85 mL/min/1.73 Normal [facility]; [facility] Work Phone: Comment on above: [facility] currently reports eGFR in compliance with the current recommendations of the National Kidney Foundation. [facility] will update reporting as new guidelines are published from the NKF-ASN Task force. PATIENT WAS FASTINGP ERFORMED BY: [facility]6370 [facility] [id number] GFR/1.73 sq M.predicted among non-blacks CKD-EPI (S/P/Bld) [Vol rate/Area] 74 mL/min/1.73 Normal [facility]; [facility] Work Phone: Comment on above: PATIENT WAS FASTINGP ERFORMED BY: [facility] Tnxiov9175 [facility] [id number] Globulin (S) [Mass/Vol] 2.4 g/dL Normal 1.5-4.5 [facility]; [facility] Work Phone: Comment on above: PATIENT WAS FASTINGP ERFORMED BY: [facility] Ntqomd0785 [facility] [id number] Glucose [Mass/Vol] 98 mg/dL Normal 65-99 [facility] Internal Medicine; [facility] Work Phone: Comment on above: PATIENT WAS FASTINGP ERFORMED BY: [facility] Bvjybu7615 [facility] [id number] Potassium [Moles/Vol] 4.1 mmol/L Normal 3.5-5.2 [facility]ensive [facility]; [facility] Work Phone: Comment on above: PATIENT WAS FASTINGP ERFORMED BY: RUBEN LabMaann Ycopjc5492 [address] RoadDublin [place] [id number] Protein [Mass/Vol] 7.3 g/dL Normal 6.0-8.5 [facility] Internal Medicine; [facility] Work Phone: Comment on above: PATIENT WAS FASTINGP ERFORMED BY: RUBEN [facility] Ekjoqu[address] [facility]bl[facility] [place] [id number] Sodium [Moles/Vol] 140 mmol/L Normal 134-144 [facility] Internal Medicine; [facility] Work Phone: Comment on above: PATIENT WAS FASTINGP ERFORMED BY: RUBEN [facility]Research [facility] Oaqrbb[address] [facility]in [place] [id number] Urea nitrogen [Mass/Vol] 28 mg/dL Abnormal 6-24 [facility]; [facility] Work Phone: Comment on above: PATIENT WAS FASTINGP ERFORMED BY: RUBEN [facility] Zqyvrp[address] [facility]bl[facility] [place] [id number] Urea nitrogen/Creatinine [Mass ratio] 31 mg/mg Abnormal 9-23 [facility]; [facility] Work Phone: Comment on above: PATIENT WAS FASTINGP ERFORMED BY: [facility] Kroyvk0729 [facility] [id number] MICROALBUMINOrdered By: [employer] em Business Sales Consultant on 01-12-2021 Albumin DL <= 20 mg/L (U) [Mass/Vol] 17.2 ug/mL Normal [facility]; [facility] Work Phone: Comment on above: PATIENT WAS FASTINGP ERFORMED BY: RUBEN [facility] Mzpvjt[address] [facility]in [place] [id number] Albumin/Creatinine (U) [Mass ratio] 11 {mg/g_creat} Normal 0-29 [facility]; [facility] Work Phone: Comment on above: Normal: 0 - 29 Moder ately increased: 30 - 300 Severely increased: >300 PATIENT WAS FASTINGP ERFORMED BY: RUBEN LabParker TrevinoStssge8656 [address]la RoadDublin [place] [id number] Creatinine (U) [Mass/Vol] 159.3 mg/dL Normal [facility]; [facility] Work Phone: Comment on above: PATIENT WAS FASTINGP ERFORMED BY: RUBEN Trevinolin[address] RoadDublin [place] [id number] TSH ([id number])Ordered By: [employer] m Business Sales Consultant on 01-12-2021 TSH Qn 3.500 {uIU/mL} Normal 0.450-4.500 Comprehen sive Internal Medicine; [facility] Work Phone: Comment on above: PATIENT WAS FASTINGP ERFORMED BY: RUBEN Trevinolin6[address] RoadDublin [place] [id number] URINALYSIS, W/ MICRO ([id number]) Ordered By: Refrigeration Insulator on 01-12-2021 Appearance (U) Clear Normal Comprehens иван Internal Medicine; [facility] Work Phone: Comment on above: PATIENT WAS FASTINGP ERFORMED BY: RUBEN Trevinolin6[address] RoadDublin [place] [id number] Bilirubin Ql (U) Negative Normal Comprehe nsive Internal Medicine; [facility] Work Phone: Comment on above: PATIENT WAS FASTINGP ERFORMED BY: RUBEN Trevinolin[address] RoadDublin [place] [id number] Color (U) Yellow Normal [facility]; [facility] Work Phone: Comment on above: PATIENT WAS FASTINGP ERFORMED BY: RUBEN LabParker TrevinoVrrwzg9886 [address] RoadDublin [place] [id number] Glucose Ql (U) Negative Normal Comprehens иван [facility]; [facility] Work Phone: Comment on above: PATIENT WAS FASTINGP ERFORMED BY: RUBEN LabParker TrevinoWsidza2883 [address] RoadDublin [place] [id number] Hemoglobin Ql (U) Negative Normal Compreh ensive Internal Medicine; [facility] Work Phone: Comment on above: PATIENT WAS FASTINGP ERFORMED BY: RUBEN Amaro[address] [facility]in [place] [id number] Ketones Ql (U) Negative Normal Comprehens иван [facility] Medicine; [facility] Work Phone: Comment on above: PATIENT WAS FASTINGP ERFORMED BY: RUBEN Amaor[address] [facility] [id number] Leukocyte esterase Test strip Ql (U) 2+ Abnormal [facility]; [facility] Work Phone: Comment on above: PATIENT WAS FASTINGP ERFORMED BY: RUBEN Amaro6370 [facility] [id number] Microscopic observation LM Nom (Urine sed) See below: Normal [facility]; [facility] Work Phone: Comment on above: Microscopic was evita cated and was performed. PATIENT WAS FASTINGP ERFORMED BY: RUBEN Amaro6370 [facility] [id number] Nitrite Ql (U) Negative Normal Comprehens иван Internal Medicine; [facility] Work Phone: Comment on above: PATIENT WAS FASTINGP ERFORMED BY: RUBEN Amaro6370 [facility] [id number] pH (U) 6.0 [pH] Normal 5.0-7.5 [facility]; [facility] Work Phone: Comment on above: PATIENT WAS FASTINGP ERFORMED BY: RUBEN Trevinolin6370 [facility] [id number] Protein Ql (U) Negative Normal Comprehens иван [facility]; [facility] Work Phone: Comment on above: PATIENT WAS FASTINGP ERFORMED BY: RUBEN Amaro6370 [facility] [id number] Specific gravity (U) [Rel density] 1.027 1 Normal 1.005-1.030 [facility]; [facility] Work Phone: Comment on above: PATIENT WAS FASTINGP ERFORMED BY: RUBEN [facility]Research [facility] Qruelw6742 [facility] [id number] Urobilinogen (U) [Mass/Vol] 0.2 mg/dL Normal 0.2-1.0 [facility]; [facility] Work Phone: Comment on above: PATIENT WAS FASTINGP ERFORMED BY: [facility]Research [facility] Kkmrii0003 [facility] [id number] CORONAVIRUS PCR [CCL]on 04-14 COVID 19 Result ACADEMIC SUPPORT SPECIALIST Negative Normal [facility] Comment on above: Result Comment: Nega tive for COVID19 (SARS CoV2) by PCR. This test was developed and its performance characteristics determined by [facility]'s [facility] [place]. This test has been authorized by FDA under an Emergency Use Authorization (EUA). This test has been validated in accordance with the FDA's Guidance Document Policy for Diagnostics Testing in Laboratories Certified to Perform High Complexity Testing under CLIA prior to Emergency use Authorization for Coronavirus Disease 2019 during the Public Health Emergency issued on September 11, 2019. [facility] [address] [place] [address] Sami Ballard III, M.D. [id number] Performed By: #### 2 [id number] #### [address] [address] COVID 19 Source ACADEMIC SUPPORT SPECIALIST ACADEMIC SUPPORT SPECIALIST SWAB Normal [facility] Comment on above: Performed By: #### 2 [id number] #### [facility],[address] [place] [address] CALCIFIDIOL (37240) VIT D 25 Ordered By: Refrigeration Insulator on 12-17-2019 25-Hydroxyvitamin D2+25-Hydroxyvitamin D3 [Mass/Vol] 71.1 ng/mL Normal 30.0-100.0 [facility] Work Phone: Comment on above: Vitamin D deficiency has been defined by the [place] ofMedicine and an Endocrine Society practice guideline as alevel of serum 25-OH vitamin D less than 20 ng/mL (1,2).The Endocrine Society went on to further define vitamin Dinsufficiency as a level between 21 and 29 ng/mL (2).1. IOM ([place] of Medicine). 2010. Dietary reference intakes for calcium and D. [place]: The National Academies Press.2. Krystal MF, Ashtyn GREENBERG, Cassandra FLEMING, et al. Evaluation, treatment, and prevention of vitamin D deficiency: an Endocrine Society clinical practice guideline. JCEM. 2010; 96(7):1911-30. PATIENT WAS FASTINGP ERFORMED BY: Tiggly LabTV Pixie Cadhro9659 Senior Home Careblin [place] [id number] CBC W/AUTO DIFF WBC (84799)O rdered By: Refrigeration Insulator on 12-17-2019 Basophils (Bld) [#/Vol] 0.0 {x10E3/uL} Normal 0.0-0.2 [facility] Work Phone: Comment on above: PATIENT WAS FASTINGP ERFORMED BY: [employer] Skntob5676 DKT Technologyblin [place] [id number] Basophils (Bld) [#/Vol] 0.0 10*3/uL Normal 0.0-0.2 [facility]; [facility] Work Phone: Comment on above: PATIENT WAS FASTINGP ERFORMED BY: [employer] Kwqdpd[address] Mozyblin [place] [id number] Basophils/100 WBC (Bld) 1 % Normal [facility] Work Phone: Comment on above: PATIENT WAS FASTINGP ERFORMED BY: kWhOURS[address] Genizon BioSciencesblin [place] [id number] Eosinophils (Bld) [#/Vol] 0.3 {x10E3/uL} Normal 0.0-0.4 [facility] Work Phone: Comment on above: PATIENT WAS FASTINGP ERFORMED BY: Tiggly LabSilicon Biology Beuwkn[address] Genizon BioSciencesDublin [place] [id number] Eosinophils (Bld) [#/Vol] 0.3 10*3/uL Normal 0.0-0.4 [facility]; [facility] Work Phone: Comment on above: PATIENT WAS FASTINGP ERFORMED BY: RUBEN MelodyMclaren Thumb Region6[address] Roadblin [place] [id number] Eosinophils/100 WBC (Bld) 6 % Normal [facility] Work Phone: Comment on above: PATIENT WAS FASTINGP ERFORMED BY: RUBEN MelodyResearch [facility] [address]jpal[address] [facility] [id number] Erythrocyte distribution width (RBC) [Ratio] 13.4 % Normal 11.7-15.4 [facility] Work Phone: Comment on above: PATIENT WAS FASTINGP ERFORMED BY: LabMclaren Thumb Region6370 [address] RoadUnc Health Pardeein [place] [id number] Hematocrit (Bld) [Volume fraction] 39.3 % Normal 34.0-46.6 [facility] Work Phone: Comment on above: PATIENT WAS FASTINGP ERFORMED BY: [facility] Mzazrq[address] [facility] [place] [id number] Hemoglobin (Bld) [Mass/Vol] 12.8 g/dL Normal 11.1-15.9 [facility] Work Phone: Comment on above: PATIENT WAS FASTINGP ERFORMED BY: MelodyResearch [facility] Center[facility] Azaqey7727 Sh[address] Roadblin [place] [id number] Immature granulocytes (Bld) [#/Vol] 0.0 {x10E3/uL} Normal 0.0-0.1 [facility] Work Phone: Comment on above: PATIENT WAS FASTINGP ERFORMED BY: LabResearch [facility] Fqtqbf0431 Sh[address]la RoadDublin [place] [id number] Immature granulocytes (Bld) [#/Vol] 0.0 10*3/uL Normal 0.0-0.1 [facility]; [facility] Work Phone: Comment on above: PATIENT WAS FASTINGP ERFORMED BY: MelodyMclaren Thumb Region6[address] RoadDublin [place] [id number] Immature granulocytes/100 WBC (Bld) 0 % Normal [facility] Work Phone: Comment on above: PATIENT WAS FASTINGP ERFORMED BY: RUBEN [facility] Vzurfp5730 [facility] [id number] Lymphocytes (Bld) [#/Vol] 1.3 {x10E3/uL} Normal 0.7-3.1 [facility] Work Phone: Comment on above: PATIENT WAS FASTINGP ERFORMED BY: [place] [id number] [facility] [id number] Lymphocytes (Bld) [#/Vol] 1.3 10*3/uL Normal 0.7-3.1 [facility]; [facility] Work Phone: Comment on above: PATIENT WAS FASTINGP ERFORMED BY: RUBEN OliverResearch [facility] Ekwntq4910 [facility] [id number] Lymphocytes/100 WBC (Bld) 29 % Normal [facility] Work Phone: Comment on above: PATIENT WAS FASTINGP ERFORMED BY: RUBEN [place] [id number] [facility] [id number] MCH (RBC) [Entitic mass] 33.1 pg Abnormal 26.6-33.0 [facility] Work Phone: Comment on above: PATIENT WAS FASTINGP ERFORMED BY: [place] [id number] [facility] [id number] MCHC (RBC) [Mass/Vol] 32.6 g/dL Normal 31.5-35.7 [facility] prehensive Internal Medicine Work Phone: Comment on above: PATIENT WAS FASTINGP ERFORMED BY: [facility]6370 [facility] [id number] MCV (RBC) [Entitic vol] 102 fL Abnormal 79-97 [facility] Work Phone: Comment on above: PATIENT WAS FASTINGP ERFORMED BY: [place] [id number] [facility] [id number] Monocytes (Bld) [#/Vol] 0.4 {x10E3/uL} Normal 0.1-0.9 [facility] Work Phone: Comment on above: PATIENT WAS FASTINGP ERFORMED BY: RUBEN LabResearch [facility] Fpxbap6814 [address] RoadDublin [place] [id number] Monocytes (Bld) [#/Vol] 0.4 10*3/uL Normal 0.1-0.9 [facility]; [facility] Work Phone: Comment on above: PATIENT WAS FASTINGP ERFORMED BY: RUBEN LabResearch [facility] Hruaqo9259 [address] RoadDublin [place] [id number] Monocytes/100 WBC (Bld) 8 % Normal [facility] Work Phone: Comment on above: PATIENT WAS FASTINGP ERFORMED BY: RUBEN LabResearch [facility] Mpqdgz1836 [address] RoadDublin [place] [id number] Neutrophils (Bld) [#/Vol] 2.5 {x10E3/uL} Normal 1.4-7.0 [facility] Work Phone: Comment on above: PATIENT WAS FASTINGP ERFORMED BY: RUBEN OliverResearch [facility] Rwlrgw3069 [address] RoadDublin [place] [id number] Neutrophils (Bld) [#/Vol] 2.5 10*3/uL Normal 1.4-7.0 [facility]; [facility] Work Phone: Comment on above: PATIENT WAS FASTINGP ERFORMED BY: RUBEN Trevinolin[address]Dublin [place] [id number] Neutrophils/100 WBC (Bld) 56 % Normal [facility] Work Phone: Comment on above: PATIENT WAS FASTINGP ERFORMED BY: LabResearch [facility] Maaikv7524 [address] RoadDublin [place] [id number] Platelets (Bld) [#/Vol] 277 {x10E3/uL} Normal 150-450 [facility] Work Phone: Comment on above: PATIENT WAS FASTINGP ERFORMED BY: RUBEN LabResearch [facility] Chssps5478 [address] RoadDublin [place] [id number] Platelets (Bld) [#/Vol] 277 10*3/uL Normal 150-450 [facility]; [facility] Work Phone: Comment on above: PATIENT WAS FASTINGP ERFORMED BY: RUBEN [facility] Nyqije8564 [address] RoadDublin [place] [id number] RBC (Bld) [#/Vol] 3.87 {x10E6/uL} Normal 3.77-5.28 [facility] Internal Medicine Work Phone: Comment on above: PATIENT WAS FASTINGP ERFORMED BY: CB [facility] Ozzwoi9660 [address] RoadDublin [place] [id number] RBC (Bld) [#/Vol] 3.87 10*6/uL Normal 3.77-5.28 [facility] Internal Medicine; [facility] Work Phone: Comment on above: PATIENT WAS FASTINGP ERFORMED BY: CB [facility] Oowofi6138 [address] RoadDublin [place] [id number] WBC (Bld) [#/Vol] 4.4 {x10E3/uL} Normal 3.4-10.8 [facility] Internal Medicine Work Phone: Comment on above: PATIENT WAS FASTINGP ERFORMED BY: CB [facility] Bgujaw5781 [address] RoadDublin [place] [id number] WBC (Bld) [#/Vol] 4.4 10*3/uL Normal 3.4-10.8 [facility] Internal Medicine; [facility] Work Phone: Comment on above: PATIENT WAS FASTINGP ERFORMED BY: RUBEN [facility] Ljmlef3053 [address] RoadDublin [place] [id number] LIPID PANEL ([id number])Ordered B y: Refrigeration Insulator on 12-17-2019 Cholesterol [Mass/Vol] 190 mg/dL Normal 100-199 [facility] Work Phone: Comment on above: PATIENT WAS FASTINGP ERFORMED BY: CB [facility] Axqbap5502 [address] RoadDublin [place] [id number] Cholesterol in HDL [Mass/Vol] 86 mg/dL Normal [facility] Work Phone: Comment on above: PATIENT WAS FASTINGP ERFORMED BY: CB [facility] Fukaie0887 [address] RoadDublin [place] [id number] Cholesterol in LDL [Mass/Vol] 92 mg/dL Normal 0-99 [facility] Work Phone: Comment on above: PATIENT WAS FASTINGP ERFORMED BY: RUBEN Amaro6370 [facility] [place] [id number] Cholesterol in LDL/Cholesterol in HDL [Mass ratio] 1.1 {ratio} Normal 0.0-3.2 [facility] Work Phone: Comment on above: LDL/HDL Ratio Men Wo men 1/2 Avg.Risk 1.0 1.5 Avg.Risk 3.6 3.2 2X Avg.Risk 6.2 5.0 3X Avg.Risk 8.0 6.1 PATIENT WAS FASTINGP ERFORMED BY: RUBEN Amaro[address] Genizon BioSciencesSentara Albem[facility] [id number] Cholesterol in VLDL [Mass/Vol] 12 mg/dL Normal 5-40 [facility] Work Phone: Comment on above: PATIENT WAS FASTINGP ERFORMED BY: RUBEN Trevinolin[address] [facility]in [place] [id number] Triglyceride [Mass/Vol] 62 mg/dL Normal 0-149 [facility] Work Phone: Comment on above: PATIENT WAS FASTINGP ERFORMED BY: RUBEN Amaro6370 [facility] [place] [id number] METABOLIC PANEL, COMPREHENSI VE ([id number])Ordered By: Refrigeration Insulator on 12-17-2019 Albumin [Mass/Vol] 4.9 g/dL Normal 3.8-4.9 [facility] Internal Medicine Work Phone: Comment on above: PATIENT WAS FASTINGP ERFORMED BY: RUBEN Trevinolin[address] [facility]in [place] [id number] Albumin/Globulin [Mass ratio] 2.1 {ratio} Normal 1.2-2.2 [facility] Work Phone: Comment on above: PATIENT WAS FASTINGP ERFORMED BY: RUBEN Trevinolin[address] [facility] Hospitalblin [place] [id number] ALP [Catalytic activity/Vol] 50 [iU]/L Normal 39-117 [facility] Work Phone: Comment on above: PATIENT WAS FASTINGP ERFORMED BY: RUBEN LabCohiro TrevinoAtuvnk9226 [address] RoadDublin [place] [id number] ALP [Catalytic activity/Vol] 50 U/L Normal 39-117 [facility]; [facility] Work Phone: Comment on above: PATIENT WAS FASTINGP ERFORMED BY: RUBEN LabCohiro TrevinoPmzzco8364 Suhkla RoadDublin [place] [id number] ALT [Catalytic activity/Vol] 13 [iU]/L Normal 0-32 [facility] Work Phone: Comment on above: PATIENT WAS FASTINGP ERFORMED BY: RUBEN LabParker TrevinoPsbjxs3231 [address] RoadDublin [place] [id number] ALT [Catalytic activity/Vol] 13 U/L Normal 0-32 [facility]; [facility] Work Phone: Comment on above: PATIENT WAS FASTINGP ERFORMED BY: RUBEN Trevinolin6[address]Dublin [place] [id number] AST [Catalytic activity/Vol] 23 [iU]/L Normal 0-40 [facility] Work Phone: Comment on above: PATIENT WAS FASTINGP ERFORMED BY: RUBEN Trevinolin6[address]Dublin [place] [id number] AST [Catalytic activity/Vol] 23 U/L Normal 0-40 [facility]; [facility] Work Phone: Comment on above: PATIENT WAS FASTINGP ERFORMED BY: RUBEN LabParker TrevinoQubooe0484 [address] RoadDublin [place] [id number] Bilirubin [Mass/Vol] 0.4 mg/dL Normal 0.0-1.2 Comp [facility] Work Phone: Comment on above: PATIENT WAS FASTINGP ERFORMED BY: RUBEN LabParker TrevinoCpvlxi5662 [address] RoadDublin [place] [id number] Calcium [Mass/Vol] 10.1 mg/dL Normal 8.7-10.2 [facility] Internal Medicine Work Phone: Comment on above: PATIENT WAS FASTINGP ERFORMED BY: RUBEN LabParker TrevinoQohhwn9788 [address] RoadDublin [place] [id number] Chloride [Moles/Vol] 96 mmol/L Normal 96-106 [facility]ensive Internal [facility] Work Phone: Comment on above: PATIENT WAS FASTINGP ERFORMED BY: [facility] Rtnwoh4507 [address] RoadDublin [place] [id number] CO2 [Moles/Vol] 29 mmol/L Normal 20-29 Comprehen [facility] Internal Medicine Work Phone: Comment on above: PATIENT WAS FASTINGP ERFORMED BY: [facility] Umeztm5353 [address] RoadDublin [place] [id number] Creatinine [Mass/Vol] 0.90 mg/dL Normal 0.57-1.00 [facility] Internal Medicine Work Phone: Comment on above: PATIENT WAS FASTINGP ERFORMED BY: LabResearch [facility] Vrxhnf9779 [address] RoadDublin [place] [id number] GFR/1.73 sq M predicted among blacks CKD-EPI (S/P/Bld) [Vol rate/Area] 86 mL/min/1.73 Normal [facility] Work Phone: Comment on above: PATIENT WAS FASTINGP ERFORMED BY: [facility] Xarkev2765 [address] RoadDublin [place] [id number] GFR/1.73 sq M predicted among non-blacks CKD-EPI (S/P/Bld) [Vol rate/Area] 74 mL/min/1.73 Normal [facility] Work Phone: Comment on above: PATIENT WAS FASTINGP ERFORMED BY: [facility] Sldgrm2488 [address] RoadDublin [place] [id number] Globulin (S) [Mass/Vol] 2.3 g/dL Normal 1.5-4.5 [facility] Work Phone: Comment on above: PATIENT WAS FASTINGP ERFORMED BY: [facility] Xbymzw0955 [address] RoadDublin [place] [id number] Glucose [Mass/Vol] 90 mg/dL Normal 65-99 [facility] Internal Medicine Work Phone: Comment on above: PATIENT WAS FASTINGP ERFORMED BY: RUBEN LabCohiro Mevmcz5197 [address] RoadDublin [place] [id number] Potassium [Moles/Vol] 4.6 mmol/L Normal 3.5-5.2 [facility] Internal Medicine Work Phone: Comment on above: PATIENT WAS FASTINGP ERFORMED BY: RUBEN LabManan Qsjeen7234 [address] RoadDublin [place] [id number] Protein [Mass/Vol] 7.2 g/dL Normal 6.0-8.5 [facility] Internal Medicine Work Phone: Comment on above: PATIENT WAS FASTINGP ERFORMED BY: RUBEN LabParker TrevinoKdqyea6916 [address] RoadDublin [place] [id number] Sodium [Moles/Vol] 140 mmol/L Normal 134-144 [facility] Internal Medicine Work Phone: Comment on above: PATIENT WAS FASTINGP ERFORMED BY: RUBEN LabParker TrevinoUawqne4945 [address] RoadDublin [place] [id number] Urea nitrogen [Mass/Vol] 17 mg/dL Normal 6-24 [facility] Internal Medicine Work Phone: Comment on above: PATIENT WAS FASTINGP ERFORMED BY: RUBEN LabParker TrevinoDuwuhe5782 [address] RoadDublin [place] [id number] Urea nitrogen/Creatinine [Mass ratio] 19 mg/mg Normal 9-23 [facility] Internal Medicine Work Phone: Comment on above: PATIENT WAS FASTINGP ERFORMED BY: RUBEN LabManan Cgujno11[address] RoadDublin [place] [id number] MICROALBUMINOrdered By: Syst em Business Sales Consultant on 12-17-2019 Albumin DL <= 20 mg/L (U) [Mass/Vol] 9.2 ug/mL Normal [facility] Work Phone: Comment on above: PATIENT WAS FASTINGP ERFORMED BY: RUBEN LabCohiro Wdhaop5544 [address] RoadDublin [place] [id number] Albumin/Creatinine (U) [Mass ratio] 9 {mg/g_creat} Normal 0-29 [facility] Work Phone: Comment on above: Normal: 0 - 29 Moder ately increased: 30 - 300 Severely increased: >300 Please note reference interval change PATIENT WAS FASTINGP ERFORMED BY: RUBEN [facility] Diuzgw6490 [address] RoadDublin [place] [id number] Creatinine (U) [Mass/Vol] 97.1 mg/dL Normal [facility] Work Phone: Comment on above: PATIENT WAS FASTINGP ERFORMED BY: RUBEN [facility] Vfvpbd8340 [address] RoadDublin [place] [id number] TSH ([id number])Ordered By: [employer] m Business Sales Consultant on 12-17-2019 TSH Qn 2.310 {uIU/mL} Normal 0.450-4.500 Comprehen sive Internal Medicine Work Phone: Comment on above: PATIENT WAS FASTINGP ERFORMED BY: RUBEN [facility] Dfzrcx4503 [address] RoadDublin [place] [id number] URINALYSIS, W/ MICRO ([id number]) Ordered By: Refrigeration Insulator on 12-17-2019 Appearance (U) Clear Normal Comprehens иван Internal Medicine Work Phone: Comment on above: PATIENT WAS FASTINGP ERFORMED BY: RUBEN [facility] Kobrhn8903 [address] RoadDublin [place] [id number] Bilirubin Ql (U) Negative Normal Comprehe nsive Internal Medicine Work Phone: Comment on above: PATIENT WAS FASTINGP ERFORMED BY: RUBEN [facility] Vntgxq4991 [address] RoadDublin [place] [id number] Bilirubin Ql (U) Negative Normal Comprehe nsive Internal Medicine; [facility] Work Phone: Comment on above: PATIENT WAS FASTINGP ERFORMED BY: RUBEN [facility] Evcmom7012 [address] RoadDublin [place] [id number] Color (U) Yellow Normal [facility] Work Phone: Comment on above: PATIENT WAS FASTINGP ERFORMED BY: RUBEN [facility] Aopitr0643 [address] RoadDublin [place] [id number] Glucose Ql (U) Negative Normal Comprehens иван Internal Medicine Work Phone: Comment on above: PATIENT WAS FASTINGP ERFORMED BY: RUBEN [facility] Vluqba9559 [address] RoadDublin [place] [id number] Glucose Ql (U) Negative Normal Comprehens иван Internal Medicine; [facility] Work Phone: Comment on above: PATIENT WAS FASTINGP ERFORMED BY: RUBEN [facility] Tbpisk0417 [address] RoadDublin [place] [id number] Hemoglobin Ql (U) Negative Normal Compreh ensive Internal Medicine Work Phone: Comment on above: PATIENT WAS FASTINGP ERFORMED BY: RUBEN [facility] Kdxuyg6813 [address] RoadDublin [place] [id number] Hemoglobin Ql (U) Negative Normal Compreh ensive Internal Medicine; [facility] Work Phone: Comment on above: PATIENT WAS FASTINGP ERFORMED BY: RUBEN [facility] Tfzkuw4076 [address]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 1.00 mg/dL Normal 0.73-1.22 [facility] Comment on above: Performed By: #### C BCDIF, BMP, CK, LIPB, PSAS1, HBA1C ####[address] [phone] eGFR- Amer. >60 Normal [facility] Comment on above: Performed By: #### C BCDIF, BMP, CK, LIPB, PSAS1, HBA1C ####[address] [phone] GFR/1.73 sq M predicted among non-blacks MDRD (S/P/Bld) [Vol rate/Area] mL/min/{1.73_m2} Normal [facility] Comment on above: Result Comment: eGFR (Estimated GFR) Units of measure: mL/min/1.73 meters squared eGFR is derived from the reexpressed MDRD Study equation using the following parameters: serum creatinine, age, gender and race. The creatinine assay has been calibrated to be traceable to IDMS. An eGFR <60 mL/min/1.73m2 for >3 months is consistent with chronic kidney disease. Refer to KDOQI guidelines for clinical interpretation. In patients with unstable renal function, e.g. those with acute kidney injury, the eGFR may not accurately reflect actual GFR. Performed By: #### C BCDIF, BMP, CK, LIPB, PSAS1, HBA1C ####[facility] [place], [place] [phone] Glucose [Mass/Vol] 170 mg/dL High 74-99 [facility] Comment on above: Result Comment: The [place] Diabetes Association (ADA) provides guidance for cutoff values for fasting glucose and random glucose. The ADA defines fasting as no caloric intake for at least 8 hours. Fasting plasma glucose results between 100 to 125 mg/dL indicate increased risk for diabetes (prediabetes). Fasting plasma glucose results greater than or equal to 126 mg/dL meet the criteria for diagnosis of diabetes. In the absence of unequivocal hyperglycemia, results should be confirmed by repeat testing. In a patient with classic symptoms of hyperglycemia or hyperglycemic crisis, random plasma glucose results greater than or equal to 200 mg/dL meet the criteria for diagnosis of diabetes. Reference: Standards of Medical Care in Diabetes 2016, [place] Diabetes Association. Diabetes Care. 2016.39(Suppl 1). Performed By: #### C BCDIF, BMP, CK, LIPB, PSAS1, HBA1C ####[facility] [address] [place], [place] [phone] Potassium [Moles/Vol] 4.2 mmol/L Normal 3.7-5.1 [facility] Comment on above: Performed By: #### C BCDIF, BMP, CK, LIPB, PSAS1, HBA1C ####[facility] [place], [place] [phone] Sodium [Moles/Vol] 137 mmol/L Normal 136-144 [facility] Comment on above: Performed By: #### C BCDIF, BMP, CK, LIPB, PSAS1, HBA1C ####[address] [place] [phone] Urea nitrogen [Mass/Vol] 18 mg/dL Normal 9-24 [facility] Comment on above: Performed By: #### C BCDIF, BMP, CK, LIPB, PSAS1, HBA1C ####[place] [phone] CBC and Differentialon 04-06 Abs Baso 0.04 k/uL Normal <0.11 [facility] Comment on above: Performed By: #### C BCDIF, BMP, CK, LIPB, PSAS1, HBA1C ####[place] [phone] Abs [place] 0.68 k/uL Normal <0.87 [facility] Comment on above: Performed By: #### C BCDIF, BMP, CK, LIPB, PSAS1, HBA1C ####[place] [phone] Abs Neut 2.81 k/uL Normal 1.45-7.50 [facility] Comment on above: Performed By: #### C BCDIF, BMP, CK, LIPB, PSAS1, HBA1C ####[address] [place] [phone] Absolute nRBC <0.01 Normal <0.01 [facility] Comment on above: Performed By: #### C BCDIF, BMP, CK, LIPB, PSAS1, HBA1C ####[address] [place] [phone] Basophils/100 WBC (Bld) 1.0 % Normal [facility] Comment on above: Performed By: #### C BCDIF, BMP, CK, LIPB, PSAS1, HBA1C ####[place] [address] [phone] DTYPE Auto Diff Normal [facility] Comment on above: Performed By: #### C BCDIF, BMP, CK, LIPB, PSAS1, HBA1C ####[place] [address] [phone] Eosinophils (Bld) [#/Vol] 0.11 10*3/uL Normal <0.46 [facility] Comment on above: Performed By: #### C BCDIF, BMP, CK, LIPB, PSAS1, HBA1C ####[place] [address] [place] [phone] Eosinophils/100 WBC (Bld) 2.7 % Normal [facility] Comment on above: Performed By: #### C BCDIF, BMP, CK, LIPB, PSAS1, HBA1C ####[place] [address] [phone] Erythrocyte distribution width (RBC) [Ratio] 13.3 % Normal 11.5-15.0 [facility] Comment on above: Performed By: #### C BCDIF, BMP, CK, LIPB, PSAS1, HBA1C ####[place] [address] [place] [phone] Hematocrit (Bld) [Volume fraction] 40.6 % Normal 39.0-51.0 [facility] Comment on above: Performed By: #### C BCDIF, BMP, CK, LIPB, PSAS1, HBA1C ####[place] [address] [place] [phone] Hemoglobin (Bld) [Mass/Vol] 13.6 g/dL Normal 13.0-17.0 [facility] Comment on above: Performed By: #### C BCDIF, BMP, CK, LIPB, PSAS1, HBA1C ####[place] [address] [place] [phone] Lymphocytes (Bld) [#/Vol] 0.48 10*3/uL Low 1.00-4.00 [facility] Comment on above: Performed By: #### C BCDIF, BMP, CK, LIPB, PSAS1, HBA1C ####[place] [id number], [place] [phone] Lymphocytes/100 WBC (Bld) 11.6 % Normal [facility] Comment on above: Performed By: #### C BCDIF, BMP, CK, LIPB, PSAS1, HBA1C ####[place] [address], [place] [phone] MCH (RBC) [Entitic mass] 31.2 pG Normal 26.0-34.0 [facility] Comment on above: Performed By: #### C BCDIF, BMP, CK, LIPB, PSAS1, HBA1C ####[place] [address], [place] [phone] MCHC (RBC) [Mass/Vol] 33.5 g/dL Normal 30.5-36.0 [facility] Comment on above: Performed By: #### C BCDIF, BMP, CK, LIPB, PSAS1, HBA1C ####[place] [address] [place], [place] [phone] MCV (RBC) [Entitic vol] 93.1 fL Normal 80.0-100.0 [facility] Comment on above: Performed By: #### C BCDIF, BMP, CK, LIPB, PSAS1, HBA1C ####[place] [address], [place] [phone] Monocytes/100 WBC (Bld) 16.5 % Normal [facility] Comment on above: Performed By: #### C BCDIF, BMP, CK, LIPB, PSAS1, HBA1C ####[place] [address], [place] [phone] Neutrophils/100 WBC (Bld) 68.2 % Normal [facility] Comment on above: Performed By: #### C BCDIF, BMP, CK, LIPB, PSAS1, HBA1C ####[address] [place], [place] [phone] NRBCs 0.0 /100 WBC Normal 0 [facility] Comment on above: Performed By: #### C BCDIF, BMP, CK, LIPB, PSAS1, HBA1C ####[address] [place], [place] [phone] Platelet mean volume (Bld) [Entitic vol] 11.3 fL Normal 9.0-12.7 [facility] Comment on above: Performed By: #### C BCDIF, BMP, CK, LIPB, PSAS1, HBA1C ####[address] [phone] Platelets (Bld) [#/Vol] 114 10*3/uL Low 150-400 [facility] Comment on above: Performed By: #### C BCDIF, BMP, CK, LIPB, PSAS1, HBA1C ####[address] [phone] RBC (Bld) [#/Vol] 4.36 10*6/uL Normal 4.20-6.00 [facility] Comment on above: Performed By: #### C BCDIF, BMP, CK, LIPB, PSAS1, HBA1C ####[address] [phone] WBC (Bld) [#/Vol] 4.13 10*3/uL Normal 3.70-11.00 [facility] Comment on above: Performed By: #### C BCDIF, BMP, CK, LIPB, PSAS1, HBA1C ####[address] [place], [place] [phone] CKon 04-06-2019 CK [Catalytic activity/Vol] 220 U/L Normal 51-298 [facility] Comment on above: Performed By: #### C BCDIF, BMP, CK, LIPB, PSAS1, HBA1C ####[facility] [address] [place], [place] [phone] CNCNPATEDon 04-06-2019 CNCNPATED Education ([facility]) TYSHAWNVIRGINIA BUNCH ([id number]) 1970 F Date Time Provider Department 04/06/19 12:30 PM VIKTORIA RAINEY (JOSH) [facility] Reason for Visit: Follow Up [171] Progress Notes: Viktoria Rainey RD, JOSH 04/06/2019 1:10 PM Signed FUNCTION MEDICINE FOLLOW UP NUTRITION ASSESSMENT Patient name: Virginia Villagran Anthropometrics: There were no vitals taken for this visit. Height: Last 1 Encounter Ht Readings: Date: Ht: 02/18/2019 167.6 cm (5' 6) Weight: Last 2 Encounter Wt Readings: Date: Wt: 02/18/2019 67.5 kg (148 lb 14.4 oz) Wt: 67.5 kg (148 lb 14.4 oz) BMI: 24.03 kg/(m2) Resting Metabolic Rate: 1315 Allergies: Patient has no known allergies. Medications: Current Outpatient Medications on File Prior to Visit: L-Glutamine Powder 5mg/tsp (Pure Encapsulations) gut healing/heart burn 5 grams twice per day Digestive Enzymes Ultra 180 ct. (Pure Encapsulations) supports digestion of food 1-2 capsules with meals Saccharomyces Boulardii (Klaire/Prothera) good yeast (FRIDGE) Take 2 capsules by mouth once daily. Ther-Biotic Complete Capsules (Klaire/Prothera) probiotic (FRIDGE) Take 1 capsule by mouth once daily. One Ferrum (Pure Encapsulation) -- fish oil Take 2 capsules by mouth daily with food. Magnesium Glycinate 120mg 3 at night Stress, blood sugar, thyroid/hormones/adrena ls/sleep/energy/toxins/ muscles/constipation/as thma 3 capsules with meals at night MultiThera 1 Capsule (Klaire/Prothera)- multivitamin Take 3 capsules by mouth twice daily with meals. Vitamin D [place] (Intersect ENT for Ischemix) Take 1 capsule by mouth daily with food. ubidecarenone Q-10 (CO Q-10) 50 mg capsule Take 1 capsule by mouth once daily. No current facility-administered medications on file prior to visit. Past Medical History: No past medical history on file. PREVIOUS NUTRITION ASSESSMENT Class Topic: Functional Nutrition and Elimination Diet Introduction Education Materials: IFM Elimination Diet Food List, Weekly Case Briefer and Recipes, Comprehensive Guide, Adaptable Meals, Dirty Dozen ? Chief Concerns: 1. Ulcerative Colitis 2. Scalp itchiness (dry spots, dandruff) 3. Hypertension 4. Anxiety ? Patient goal: I would like to avoid having to go on immunomodulator meds for my ulcerative colitis. I have had ulcerative colitis for about 35 years. It was well controlled with oral balsalazide for about fourteen years, but last fall I had a flare-up, followed a month later by a c-diff infection, and I have not been able to get back into full remission since. My people manager is recommending Azathioprine, but I am very reluctant to take a med that decreases my natural immunity. I want to find out if it can be controlled in a healthier manner. ? MSQ Score: from 13, 02/18 ? Is the patient having any pain that is interfering with oral intake? No ? Past Medical History: PAST?MEDICAL?HISTORY No past medical history on file. ? Anthropometrics: Vitals 02/18/2019 SITTING SYSTOLIC 117 SITTING DIASTOLIC 83 PULSE 89 WEIGHT in POUNDS 148 lb 14.4 oz WEIGHT in KILOGRAMS 67.541 kg HEIGHT in INCHES 66 in. HEIGHT in CM 167.6 cm SITTING BP 117/83 BODY MASS INDEX 24.03 ? Lifestyle: Weight issues: No Adequate, restful sleep?: No, 7 hours with problems staying asleep, problems falling asleep, and feeling tired upon waking Currently exercising?: No GI symptoms:Yes, bloating, diarrhea, strong stool odor, undigested food in stool (sunflower seeds), and small amount of blood in stools after UC flare-up, constipation when UC is in remission with bowel movement every 3-4 days ? Dietary pattern: Current diet: Yes, following an elimination diet (No Dairy, No Wheat, Gluten Free, No added sugar) Food allergies:No Food sensitivities: Yes, gluten (deal with sugar cravings when I include it in my diet) certain nuts, asparagus, large amounts of heavy dairy (loose stools), caffeine (makes me feel unbalanced/uncontrolled ) Reported lifestyle behaviors and eating habits:Late-night eating, Time constraints, Healthy foods not readily available, Love to eat, Emotional eater-eat when sad, lonely, bored, etc., Eat too much under stress, Don't care to cook ? Diet Recall: Yes, reviewed. Breakfast: None or two hard-boiled eggs Lunch Salad with chicken breast meat and mushrooms; or a chicken breast; with applesauce sweetened with stevia Dinner: Eggs, fish, or shrimp, perhaps some fruit or a vegetable Snacks: Gluten-free crackers, applesauce sweetened with stevia Beverages: Water, iced tea sweetened with stevia, hot black or green tea, usually decaffeinated, sometimes Vitamin Water Zero ? Excessive stress reported?: Yes, 01/20 related to work. Going to [email or web address] therapy. ? 48 year old female presents for nutrition assessment relative to UC. C/o itching skin (scalp, improved without dairy), concerns for medication side effects (immunosuppressants), anxiety. Past medical history of HTN, hyperlipidemia, mold exposure. Diet recall includes aims to be gluten, dairy, and added sugar free; continues yogurt/cottage cheese, notes significant cravings/attachment to sugar. Due to multiple digestive symptoms, patient would benefit from whole foods, plant based, low glycemic food plan that minimizes potential food triggers and utilizes strategies to aid in good digestion. - elimination, low carbohydrate. No grains, 1 cup starchy vegetables daily. ? Provider Nutrition Notes: Elimination Diet?with no grains, no legumes, no starchy veggies ? Nutrition Diagnosis: Altered GI function related to UC as evidenced by patient reported digestive issues R53.81, R53.83 Malaise and fatigue ?(primary encounter diagnosis) K51.00 Ulcerative pancolitis without complication (HCC) Z86.19 History of Clostridium difficile colitis Z77.120 Mold exposure I10 Essential hypertension E78.2 Mixed hyperlipidemia ? Nutrition Intervention 02/17/2019: Nutrition education: 1. Whole foods, plant based, low glycemic, comprehensive elimination diet 2. Adequate hydration 3. Self-Monitoring: Track food/beverage intake 4. Schedule follow up for food reintroduction and further personalization of eating plan ? Nutrition Monitoring AND Evaluation: Adherence to elimination diet Criteria: Patient recall, food diary ? Follow up: 8 weeks ? Abstract prepared by: Sai Lew RD Signed by: Leny Mason RD, MAHAD Previous Nutrition Interventions Met: Yes __ CURRENT NUTRITION ASSESSMENT Reason for consult: Follow-up Visit Date: April 06, 2019 Previous Concern(s): 1. Ulcerative Colitis 2. Scalp itchiness (dry spots, dandruff) 3. Hypertension 4. Anxiety Current Concern(s): 1. Ulcerative Colitis 2. Scalp itchiness (dry spots, dandruff) 3. Hypertension 4. Anxiety Is the patient having any pain that is interfering with oral intake? No Labs: Reviewed Results for VIRGINIA VILLAGRAN ( ) as of 04/06/2019 12:13 Ref. Range 02/18/2019 10:11 Hemoglobin A1C Latest Ref Range: 4.3 - 5.6 % 5.4 Advanced Testing: GI Effects Date ? ? Infection None+blood and +wbc ? ? Digestion >500PE, TG 3.6 H ? ? Beta Glucoronidase Nl 529 ? ? Imbalance calprotectin 105 EPX 7.2, Siga 432 < DL SCFA, n butyrate ? ? Diversity/abundance Low orange balanced, equivocal abundance ? ? Commensal bacteria colonies in top 5th% 06/07 high 5+malaika 8+addl malaika s cervis 2+ Subjective: -Currently in a flair Diet Recall: Yes, review B: A banana L: A salad with white meat chicken, mushrooms, a clean dressing OR white meat chicken with vegetables (oven roasted), unsweetened applesauce with stevia D: chicken or fish (pears), more vegetables (riced cauliflower), avocado, tomato, pears Snacks: simple haney almond flour crackers Beverages: water, chamomile tea Current MSQ Score: Not completed Previous MSQ Score from 02/18: 13 48 year old female presents with her today for follow-up functional nutrition assessment. Chief complaints today include continued UC flares, currently in one with notable medical history of HTN, hyperlipidemia, mold exposure. Changes to diet or lifestyle patterns since last appointment include adherence to elimination diet, with many high FODMAP and high fiber choices. Lab review reveals slightly elevated HgbA1c. Due to a desire to manage symptoms of UC, patient would benefit from waiting until after flare is complete to reintroduce foods. We discussed continuing on a dairy-free, gluten-free diet long-term and making some swap outs for low FODMAP foods. Provider Nutrition Notes: Hemoglobin a1c goal is 5.1; decrease grains, starchy veggies, sugar and limit fruits to 2 per day Functional Nutrition: reintroduce after flare Meal Plans: Elimination Diet: Food Reintroduction Symptom Tracker Handouts provided: Turmeric Tea Recipe Low FODMAP diet overview Nutrition Diagnosis: Altered GI function related to IBS as evidenced by patient reported digestive issues and PMH/EMR Food and nutrition related knowledge deficit related to lack of prior education as evidenced by patient's verbalized inaccurate/incomplete information. Altered nutrition related lab values related to current diagnosis as evidenced by PMH/EMR Nutrition Intervention 04/06/2019: 1. Long-term I would suggest that you continue with Gluten-free, dairy-free diet low in added sugars (<1T or 12gms daily) 2. Please wait until your flare is done before you reintroduce any foods. Please reintroduce the following foods using our Reintroduction Protocol: -Eggs - Organic, free-range (1 egg) -Beef - Organic, 100% grass-fed (1-2oz) -Pork - Pasture-raised (1-2oz) -Shellfish - Wild caught (2-3 shrimp) -Soy - Organic Edamame (1/4 cup) -Peanuts - Organic Peanuts or Peanut Butter (2 Tbsp) -Lucien - Organic corn chip or corn tortilla Reintroduce 1 previously eliminated food every 4 days. Eat the previously eliminated food twice as a snack on day 1 and 3, and avoid that food day 2 and 4. If you have a reaction, eliminate that food for 12 weeks. If not, you can reintroduce that food back into your diet on a regular basis. Reintroduce these foods before your follow-up appointment. The food in parenthesis is the amount recommended per snack. 3. During Your Flare: Give your digestive system a head start by cooking, blending, steaming your veggies. Take a look at the list of high FODMAP foods, make some swap outs for lower FODMAP options 4. Add Collagen Powder to your daily regimen, bone broth Nutrition Monitoring AND Evaluation: Patient adherence to above recommendations Criteria: Patient recall Follow up:10 weeks Time Spent with patient: 30 minutes Consult Billing Type: Re-assess/15 minutes, 2 increment(s), 30 minutes Referred/Supervised by: Dr. Amy Reed Number of Increments: 2 (30 minutes) Signed by: JOSH Peña RD, JOSH 04/06/2019 12:56 PM Signed [facility] FOLLOW UP NUTRITION INSTRUCTIONS We recommend scheduling your Follow-up appointment at the end of your initial appointment. Nutrition Follow-up: In as needed with Viktoria Rainey RD. Your Prescribed Nutrition Plan: Nutrition Plan: 1. Long-term I would suggest that you continue with Gluten-free, dairy-free diet low in added sugars (<1T or 12gms daily) 2. Please wait until your flare is done before you reintroduce any foods. Please reintroduce the following foods using our Reintroduction Protocol: -Eggs - Organic, free-range (1 egg) -Beef - Organic, 100% grass-fed (1-2oz) -Pork - Pasture-raised (1-2oz) -Shellfish - Wild caught (2-3 shrimp) -Soy - Organic Edamame (1/4 cup) -Peanuts - Organic Peanuts or Peanut Butter (2 Tbsp) -Lucien - Organic corn chip or corn tortilla Reintroduce 1 previously eliminated food every 4 days. Eat the previously eliminated food twice as a snack on day 1 and 3, and avoid that food day 2 and 4. If you have a reaction, eliminate that food for 12 weeks. If not, you can reintroduce that food back into your diet on a regular basis. Reintroduce these foods before your follow-up appointment. The food in parenthesis is the amount recommended per snack. 3. During Your Flare: Give your digestive system a head start by cooking, blending, steaming your veggies. Take a look at the list of high FODMAP foods, make some swap outs for lower FODMAP options Ordering Supplements: Supplements can be ordered from the [facility]'s Online Store: [email or web address] Pocits/ Directions to create a new account can be found in the New Patient Packet ? You will need to create an account on the store website, using your Medical Record Number (MRN) and Provider's name. ? Provider Code: '[facility]' PATIENT INSTRUCTIONS: To be completed before next visit: Food Diaries/Reintroduction of Foods Tracker: Please complete your food logs and bring them back to you follow-up nutrition appointment. Submit your food diaries to the Manufacturing Finance Manager when you are roomed during your next visit. How to Contact Your Functional Medicine Team (Open M-F 8am-5pm): 1. Health Enhancement Productst is the BEST form of communication to reach the Functional Medicine Team, see test results and request refills. Please allow 72 business hours for a response. Directions for signing up are included in your New Patient Folder. (Or you can go to [email or web address]) 2. For nutrition related questions or concerns, Location Labs message your physician and include Attn: Viktoria at the top of the message. Other instructions from your clinician: [facility] FOLLOW UP NUTRITION INSTRUCTIONS We recommend scheduling your Follow-up appointment at the end of your initial appointment. Nutrition Follow-up: In as needed with Viktoria Rainey RD. Your Prescribed Nutrition Plan: Nutrition Plan: 1. Long-term I would suggest that you continue with Gluten-free, dairy-free diet low in added sugars (<1T or 12gms daily) 2. Please wait until your flare is done before you reintroduce any foods. Please reintroduce the following foods using our Reintroduction Protocol: -Eggs - Organic, free-range (1 egg) -Beef - Organic, 100% grass-fed (1-2oz) -Pork - Pasture-raised (1-2oz) -Shellfish - Wild caught (2-3 shrimp) -Soy - Organic Edamame (1/4 cup) -Peanuts - Organic Peanuts or Peanut Butter (2 Tbsp) -Lucien - Organic corn chip or corn tortilla Reintroduce 1 previously eliminated food every 4 days. Eat the previously eliminated food twice as a snack on day 1 and 3, and avoid that food day 2 and 4. If you have a reaction, eliminate that food for 12 weeks. If not, you can reintroduce that food back into your diet on a regular basis. Reintroduce these foods before your follow-up appointment. The food in parenthesis is the amount recommended per snack. 3. During Your Flare: Give your digestive system a head start by cooking, blending, steaming your veggies. Take a look at the list of high FODMAP foods, make some swap outs for lower FODMAP options Ordering Supplements: Supplements can be ordered from the [facility]'s Online Store: [email or web address] Pocits/ Directions to create a new account can be found in the New Patient Packet ? You will need to create an account on the store website, using your Medical Record Number (MRN) and Provider's name. ? Provider Code: '[facility]' PATIENT INSTRUCTIONS: To be completed before next visit: Food Diaries/Reintroduction of Foods Tracker: Please complete your food logs and bring them back to you follow-up nutrition appointment. Submit your food diaries to the Manufacturing Finance Manager when you are roomed during your next visit. How to Contact Your Functional Medicine Team (Open M-F 8am-5pm): 1. Health Enhancement Productst is the BEST form of communication to reach the Functional Medicine Team, see test results and request refills. Please allow 72 business hours for a response. Directions for signing up are included in your New Patient Folder. (Or you can go to [email or web address]) 2. For nutrition related questions or concerns, Location Labs message your physician and include Attn: Viktoria at the top of the message. Primary Visit Diagnosis:Ulcerative pancolitis without complication (HCC) [K51.00] Other Visit Diagnoses:Mold exposure [Z77.120] Malaise and fatigue [R53.81, R53.83] Essential hypertension [I10] Mixed hyperlipidemia [E78.2] Dietary surveillance and counseling [Z71.3] During your visit today, we recorded the following information about you: Allergies As of Date: 04/06/2019 (No Known Allergies) Date Reviewed: 04/06/2019 Reviewed by: Viktoria (Josh) JOSH Rainey - Fully Assessed Prescriptions as of 04/06/2019 Sig: LACTOBACILLUS #2-BIFIDOBACTER* Take 1 Packet by mouth once d* OTC NUTRITIONAL SUPPLEMENT 5 grams twice per day OTC NUTRITIONAL SUPPLEMENT 1-2 capsules with meals OTC NUTRITIONAL SUPPLEMENT Take 2 capsules by mouth once* OTC NUTRITIONAL SUPPLEMENT Take 1 capsule by mouth once * OTC NUTRITIONAL SUPPLEMENT Take 2 capsules by mouth kylee* OTC NUTRITIONAL SUPPLEMENT 3 capsules with meals at night OTC NUTRITIONAL SUPPLEMENT Take 3 capsules by mouth twic* OTC NUTRITIONAL SUPPLEMENT Take 1 capsule by mouth daily* COENZYME Q10 50 MG CAPSULE Take 1 capsule by mouth once * Encounter Status:Closed by VIKTORIA RAINEY on 04/06/19 [facility] CNOVon 04-06-2019 CNOV [facility] VIRGINIA VILLAGRAN ([id number]) 1970 F Date Time Provider Department 04/06/19 11:30 AM [facility] During your visit today, we recorded the following information about you: Amy Reed MD 04/06/2019 12:10 PM Signed Follow-up Visit Patient: Virginia Villagran There is no height or weight on file to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 Hormonal Function: Anxiety Perimenopausal-every 4 month period Structural Function: Thumb pain Additional Recommendations: Natural ways to detox: 1. IR saunas 1-3 min to start, on lowest setting, and increase as tolerated to maximum time 30 minutes 3-5x/week. 2. Dry brushing: use loofah brush over body, always moving towards the heart daily before showering. If you feel worse with the above two, this is a sign of a lot of toxin build up, decrease what you are doing to the level you can tolerate. 3. Air quality in your house and work are important. Consider investing in a good quality air purifier to clean the air. You can visit www.TuneIn to learn more. If you wish to buy one from them, you can use the [employer] partner code 189. Other ways to improve air quality are to keep windows open even for a few minutes to improve air quality, changing your HVAC filter more often and using a higher grade (10 is preferred). You can also open the windows to let the air circulate. Outside air generally is house cleaner than indoor air. 4. Drink water: an appropriate amount is 1/2 your body weight in ounces. (For example, if your child weighs 50lbs, your child should drink 25oz.). Please add organic lemon and if you do not have organic lemon, just squeeze the lemon juice and throw away the rind which is where the pesticides are. 5. Eat organic as much as possible. Please visit the environmental working group to learn about fruits and veggies with the highest amount of toxins on them called the dirty dozen. EWG.org. Try to eat clean sources of meat as well. If you can not afford this, more vegetables than fruits are important to consume since they help up regulate your detoxification ability. 6. Get the free lisbet: think dirty. It evaluates your personal care products and household products to make sure they are toxin free or low in toxins. Aim for a grade of 3 or less. 7. You can also do an epsom salt bath every night. This helps your child absorb magnesium topically. Add at least 1/2 cup epsom salt with baking soda 1/2 cup to further alkalinize the body. 8. Read Toxic Home/Conscious Home by Faheem Negrete MD on how to make your house more toxin free Plan and Lifestyle Prescription Today's Plan/Instructions/Resou rces: Gut healing 1. Stool study 2. Start diet 3. Start supplements one at a time, use only what you can tolerate. Add new supplement every 3-4 days if you are okay with it. If you can not tolerate something, do not use it. Finish yours and add below A. Digestive enzymes B. L glutamine C Probiotics D. Magnesium E. Ferrum 3 F. Vitamin d with K G. Saccromyces B. 3bill 3 tabs 2x/day H. Co q 10 4. For EMDR (Eye Movement Desensitization Reprocessing) Go to www.emdr.com 5. Smoothie: protein powder, collagen powder 1 scoop daily, almond milk, 1 tbsp nut butter, 1-2 tbsp evoo, 1-2 tbsp MCT oil, 1/2 banana 1-3 tbsp of a mix of flax/opal/hemp (start slow and increase as tolerated), soluble fiber: isabell's fiber preston 1-2 tsp daily can add probiotics, L glutamine, vitamin d/k Instructions AND Resources [facility] labs GI effects with Zonulin Medications/Supplements Recommended: No orders of the defined types were placed in this encounter. Medication orders placed this encounter Digestive Enzymes Ultra 180 ct. (Pure Encapsulations) supports digestion of food Si-2 capsules with meals Refill: 0 L-Glutamine Powder 5mg/tsp (Pure Encapsulations) gut healing/heart burn Si grams twice per day Refill: 0 Magnesium Glycinate 120mg 3 at night Stress, blood sugar, thyroid/hormones/adrena ls/sleep/energy/toxins/ muscles/constipation/as thma Si capsules with meals at night Refill: 0 MultiThera 1 Capsule (Klaire/Prothera)- multivitamin Sig: Take 3 capsules by mouth twice daily with meals. Refill: 0 One Ferrum (Pure Encapsulation) -- fish oil Sig: Take 2 capsules by mouth daily with food. Refill: 0 Saccharomyces Boulardii (Klaire/Prothera) good yeast (FRIDGE) Sig: Take 2 capsules by mouth once daily. Refill: 0 Ther-Biotic Complete Capsules (Klaire/Prothera) probiotic (FRIDGE) Sig: Take 1 capsule by mouth once daily. Refill: 0 ubidecarenone Q-10 (CO Q-10) 50 mg capsule Sig: Take 1 capsule by mouth once daily. Dispense: 60 capsule Refill: 0 Vitamin D [place] ([employer]) Sig: Take 1 capsule by mouth daily with food. I recommend the supplements from the [facility] at [email or web address] . Continue: Current Outpatient Medications: L-Glutamine Powder 5mg/tsp (Pure Encapsulations) gut healing/heart burn 5 grams twice per day Digestive Enzymes Ultra 180 ct. (Pure Encapsulations) supports digestion of food 1-2 capsules with meals Saccharomyces Boulardii (Klaire/Prothera) good yeast (FRIDGE) Take 2 capsules by mouth once daily. Ther-Biotic Complete Capsules (Klaire/Prothera) probiotic (FRIDGE) Take 1 capsule by mouth once daily. One Ferrum (Pure Encapsulation) -- fish oil Take 2 capsules by mouth daily with food. Magnesium Glycinate 120mg 3 at night Stress, blood sugar, thyroid/hormones/adrena ls/sleep/energy/toxins/ muscles/constipation/as thma 3 capsules with meals at night MultiThera 1 Capsule (Klaire/Prothera)- multivitamin Take 3 capsules by mouth twice daily with meals. Vitamin D [place] ([employer]) Take 1 capsule by mouth daily with food. ubidecarenone Q-10 (CO Q-10) 50 mg capsule Take 1 capsule by mouth once daily. No current facility-administered medications for this visit. Stop: There are no discontinued medications. Functional Nutrition: Elimination Diet with no grains, no legumes, no starchy veggies Future Plans: Follow up: Please schedule a follow up visit with the following Caregivers: Provider: 8weeks, Correctional Substance Abuse Counselor: 8 weeks and Health Purchasing Assistant: 2 weeks LIFESTYLE PRESCRIPTION Sleep: Sleep goal for most adults is a minimum of 7-9 hours nightly. Studies consistently show that less than 6 hours of sleep for even just a few nights can alter gene expression of over 700 different genes! This can lead to reduced immunity and altered hormone levels which can increase inflammation and cause weight gain, poor blood sugar regulation, memory problems and numerous other negative effects. Please make sleep a priority. Be very protective of your sleep time and find a routine that works for you. Your body (and mind) will thank you!!!! Sleep hygiene tips: Recommend no ?screen activity? at least 1 hour before bed (no TV, computer monitor, iPad, Devon, or Smart Phone usage). Sleep in a cool, dark room. No buzzing or binging objects in your bedroom except alarm clock. Try to get 7-8 hours of sleep per night. -Use the red glasses to help make Melatonin which promote sleep. Buy this on [employer]idian:Ateo [id number] Laser Enhancement Glasses, about $8 -Listen to calming meditation and sleep music prior to bed. Visit [employer] or use [employer] music available for free on You Tube. -Calming teas such as chamomile, Passion Flower and Holy Basil can help decrease the stress response -Baths with epsom salt and Lavender can help or just soaking your feet in a bucket with this can help -Use dark window shades or consider a set of eye shades for your eyes when trying to sleep Exercise Prescription: Numerous studies confirm the benefits of regular moderate aerobic exercise (walking, swimming, elliptical machine, cycling, etc.) for 30 min 5 days per week (150 min goal). Resistance training for 20 min twice weekly will also help build lean muscle mass, maintain bone mineral density, reduce body fat, and increase metabolic rate (helps you to burn calories more efficiently--even at rest). High intensity interval training-Alternatively, some new research suggest very short, intense bursts of activity for just 4 minutes per day 3-4 times/week may be as effective (or even beter) than longer, low to moderate exercise sessions. If this appeals to you, please try the following: Do 1 exercise such as jumping rope, running in place, Burpees or jump squats for 30-60 seconds as hard as you can. Use a timer to ensure you're at maximal intensity for the full minute. Do this for 60 seconds 4 separate times throughout the day. Alternate days that you do this taking a day off in between. Max 3-4 times a week. If you can go longer than 60 seconds you are not going hard enough! If you choose to do the 4 bursts consecutively you must do something less strenuous (to allow the muscles time to recover) for 4 minutes before you repeat the next 60 second burst. If you cannot complete the next set of 60 seconds then you did not wait long enough for your muscle to recover. However, there is a benefit to dividing the 4 minutes bursts throughout the day vs. all at once. If you do not have the energy to do the above, start with movement. -mild exercise such as gentle yoga, Bryon Chi or walking and able to talk for 30 minutes 3x/week. -moderate exercise such as walking briskly for 30 minutes (you can speak are but occasional short of breath), bicycling, swimming, yoga, Bryon Chi 3x/week for 30 minutes. Stress Management: 1) Please look into this Heart Rate Variability BioFeedback Tool (www.heartmath.org). You can see the research that has been put into this very valuable tool under the Resources and Research tabs. This can be used as an lisbet on your smart phone. You will need to buy a sensor that plugs right into the phone for about $100. First, get one of the Heart Math booklets off [employer] that fits your 'go to' emotion - Transforming Anger, Anxiety, Stress, Depression, or PTSD. Five minutes 3X a day is more effective than 15 minutes in one sitting. 2) A regular, daily meditation practice of at least 15-20 minutes will change your brain--as well as your genes! Preliminary studies demonstrate gene expression is modified in those who meditate regularly leading to down-regulation of pro-inflammatory genes. This results in reduced inflammation, as well as improvements in the body's response to stress via the hormone cortisol, in the intervention groups vs. the controls. Although more research is needed, these findings suggest a definite role for meditation in the treatment and prevention of chronic inflammatory conditions. 3. Other resources to review are: A. Mindfulness CD using [place] Mindfulness CD or MP3 available on Meridian or a free lisbet: headspace or calm. Begin with meditation once per day for 5-15 minutes and then build up to 15 min twice per day as you feel ready. You can also try hemisync music for a deeper meditation as well as yoga breathing to calm the system down. Practice more the water balance and whiskey breath to calm the body down. B Yoga Breathing: Practice breath work to calm the body down. Water Breath / Balanced Breathin-6 breathes per minute When you breathe 4-6 breathes per minute, it has an adaptogenic effect on your nervous system. If you're up, it will bring you down; if you're down, it will bring you up. You can practice Water Breath standing, seated, lying down, and even while driving. Like drinking a glass of water, it's always safe, always appropriate, and always healthful. ? Practice any time, day or night ? Use before high-stress meetings or presentations ? Use if you're feeling sluggish midday ? Use during all yoga practices and low-intensity exercise How to Practice: ? Inhale through your nose 1-2-3-4 ? Exhale through your nose 4-3-2-1 Repeat for at least 10 Whiskey Breath / Down-Regulating Breath: < 4 breathes per minute When you reduce your breath below 4 breathes per minutes, it triggers a strong parasympathetic (rest and digest) nervous system response, reduces your heart rate, reduces activity in skeletal muscles, and improves digestion. This type of breathing is great after meals, in the evening, and most-commonly, right before bed. This practice should be done seated or lying down, and never while driving or doing anything standing or active. It's extremely common for students to fall asleep while using Whiskey Breath, so it should be used with care, only when appropriate. ? Use primarily before bed ? Can be used (with care) to reduce intense stress or anxiety ? After eating, this breathing pattern can aid in digestion How to Practice: ? Sit down or lie down in bed ? Inhale through your nose 1-2-3-4 ? Hold: 1-2-3-4 ? Exhale through your nose 4-3-2-1 ? Hold: 4-3-2-1 ? Repeat for at least 10 rounds (approx 10 min) Practice only while seated or lying down (never while driving) C. Smart phone apps to begin a meditative practice: Headspace (free for first 10 days) Insight Meditation Timer- (Free)-Great all-around lisbet to use for guided meditations of many different types and lengths or just to use as a tool to time and track your meditation practice. This is my absolute favorite! Calm- (Free) Walking Meditations-($1.99) - Get your walk AND meditation done together. A good way to start out for individuals who feel they just can't sit still to begin a meditative practice. Behavioral Health Therapist: If I recommended counseling or individual therapy, please schedule an individual appointment with our Functional Medicine Behavioral Health Therapist , CORINA Ramirez, after your visit today. The Behavioral Health Therapist helps patients identify and understand feelings and behaviors, experience the process of making positive change, and gain healthy coping skills. Health Coaching: Please consider scheduling with our [place] for Functional Medicine health coaches for a phone or virtual visit for accountability, goal setting and help with behavior global climate change analyst the next 6-8 weeks to be successful with your goals. [phone]. During the next 6-8 weeks you'll be working on your diet plan discussed with our storage worker, allowing for gentle detoxification and decreasing inflammation - while we are gathering your lab results and combining those with your complete history to formulate a very personalized treatment plan. LAB results: Due to the complexity of the testing performed, we are not able to review labs via [email or web address] or over the phone, but please know, if any of your labs are critical we will contact you. Otherwise, we will review all your labs at your next visit. We will go over a lot of information during your follow up visit - so please be well-rested and you may want to bring someone with you, if possible. Also make sure to schedule with the storage worker (this will not happen automatically) as you did with your first visit so that she can review nutritional aspects of your treatment plan. By your 3rd visit, as things are improving, we will likely transition you to one of our very capable Certified Nurse Practitioners/Physician Assistants for further follow-up. Potential future labs: Any Ramos labs ordered take about 4 weeks to return. Do them as soon as possible so that we have the results before your next appointment. You can access them on the [email or web address] website and it can be beneficial if you review them prior to your next visit. [email or web address]. Read about NutrEval if this was ordered. We will go over a lot of information during your follow up visit - so please be well-rested and you may want to bring someone with you, if possible. Also make sure to schedule with the storage worker (this will not happen automatically). Time spent with patient: I spent 60 minutes in the visit, with more than 50% of the time spent counseling in regards to treatment, lifestyle, root causes. Additional 30 minutes of time spent with patient regarding history, symptoms, lifestyle. Amy Reed MD, MPH Amy Reed MD 02/18/2019 9:51 AM Signed Assessment Assessment: R53.81, R53.83 Malaise and fatigue (primary encounter diagnosis) K51.00 Ulcerative pancolitis without complication (HCC) Z86.19 History of Clostridium difficile colitis Z77.120 Mold exposure I10 Essential hypertension E78.2 Mixed hyperlipidemia Initial Functional Medicine Assessment Underlying Causes: stress, trauma, toxins, adverse reaction to food, infection, nutritional insufficiencies or excessess, sleep Today's Focus: gut healing, stool study Nutritional Assessment Food sensitivity Digestive Function Ulcerative Colitis Inflammation/Immune Function Ulcerative Colitis Cold intolerance Environmental allergies Hyperlipidemia hypertension Energy Production/Function: Insufficient sleep Fatigue Detoxification Function ?Mold exposure Heavy metals-silver amalgams Pesticide/insecticide Sensitivity to smoke Denies tick bite Hormonal Function: Anxiety Perimenopausal-every 4 month period Structural Function: Thumb pain Additional Recommendations: Natural ways to detox: 1. IR saunas 1-3 min to start, on lowest setting, and increase as tolerated to maximum time 30 minutes 3-5x/week. 2. Dry brushing: use loofah brush over body, always moving towards the heart daily before showering. If you feel worse with the above two, this is a sign of a lot of toxin build up, decrease what you are doing to the level you can tolerate. 3. Air quality in your house and work are important. Consider investing in a good quality air purifier to clean the air. You can visit www.TuneIn to learn more. If you wish to buy one from them, you can use the health partner code 189. Other ways to improve air quality are to keep windows open even for a few minutes to improve air quality, changing your HVAC filter more often and using a higher grade (10 is preferred). You can also open the windows to let the air circulate. Outside air generally is house cleaner than indoor air. 4. Drink water: an appropriate amount is 1/2 your body weight in ounces. (For example, if your child weighs 50lbs, your child should drink 25oz.). Please add organic lemon and if you do not have organic lemon, just squeeze the lemon juice and throw away the rind which is where the pesticides are. 5. Eat organic as much as possible. Please visit the environmental working group to learn about fruits and veggies with the highest amount of toxins on them called the dirty dozen. EWG.org. Try to eat clean sources of meat as well. If you can not afford this, more vegetables than fruits are important to consume since they help up regulate your detoxification ability. 6. Get the free lisbet: think dirty. It evaluates your personal care products and household products to make sure they are toxin free or low in toxins. Aim for a grade of 3 or less. 7. You can also do an epsom salt bath every night. This helps your child absorb magnesium topically. Add at least 1/2 cup epsom salt with baking soda 1/2 cup to further alkalinize the body. 8. Read Toxic Home/Conscious Home by Faheem Negrete MD on how to make your house more toxin free Plan and Lifestyle Prescription Today's Plan/Instructions/Resou rces: Gut healing 1. Stool study 2. Start diet 3. Start supplements one at a time, use only what you can tolerate. Add new supplement every 3-4 days if you are okay with it. If you can not tolerate something, do not use it. Finish yours and add below A. Digestive enzymes B. L glutamine C Probiotics D. Magnesium E. Ferrum 3 F. Vitamin d with K G. Saccromyces B. 3bill 3 tabs 2x/day H. Co q 10 4. For EMDR (Eye Movement Desensitization Reprocessing) Go to www.emdr.com 5. Smoothie: protein powder, collagen powder 1 scoop daily, almond milk, 1 tbsp nut butter, 1-2 tbsp evoo, 1-2 tbsp MCT oil, 1/2 banana 1-3 tbsp of a mix of flax/opal/hemp (start slow and increase as tolerated), soluble fiber: isabell's fiber preston 1-2 tsp daily can add probiotics, L glutamine, vitamin d/k Instructions AND Resources [facility] labs GI effects with Zonulin Medications/Supplements Recommended: No orders of the defined types were placed in this encounter. Medication orders placed this encounter Digestive Enzymes Ultra 180 ct. (Pure Encapsulations) supports digestion of food Si-2 capsules with meals Refill: 0 L-Glutamine Powder 5mg/tsp (Pure Encapsulations) gut healing/heart burn Si grams twice per day Refill: 0 Magnesium Glycinate 120mg 3 at night Stress, blood sugar, thyroid/hormones/adrena ls/sleep/energy/toxins/ muscles/constipation/as thma Si capsules with meals at night Refill: 0 MultiThera 1 Capsule (Klaire/Prothera)- multivitamin Sig: Take 3 capsules by mouth twice daily with meals. Refill: 0 One Ferrum (Pure Encapsulation) -- fish oil Sig: Take 2 capsules by mouth daily with food. Refill: 0 Saccharomyces Boulardii (Klaire/Prothera) good yeast (FRIDGE) Sig: Take 2 capsules by mouth once daily. Refill: 0 Ther-Biotic Complete Capsules (Klaire/Prothera) probiotic (FRIDGE) Sig: Take 1 capsule by mouth once daily. Refill: 0 ubidecarenone Q-10 (CO Q-10) 50 mg capsule Sig: Take 1 capsule by mouth once daily. Dispense: 60 capsule Refill: 0 Vitamin D [place] ([employer]) Sig: Take 1 capsule by mouth daily with food. I recommend the supplements from the [facility] at [email or web address].[email or web address] . Continue: Current Outpatient Medications: L-Glutamine Powder 5mg/tsp (Pure Encapsulations) gut healing/heart burn 5 grams twice per day Digestive Enzymes Ultra 180 ct. (Pure Encapsulations) supports digestion of food 1-2 capsules with meals Saccharomyces Boulardii (Klaire/Prothera) good yeast (FRIDGE) Take 2 capsules by mouth once daily. Ther-Biotic Complete Capsules (Klaire/Prothera) probiotic (FRIDGE) Take 1 capsule by mouth once daily. One Ferrum (Pure Encapsulation) -- fish oil Take 2 capsules by mouth daily with food. Magnesium Glycinate 120mg 3 at night Stress, blood sugar, thyroid/hormones/adrena ls/sleep/energy/toxins/ muscles/constipation/as thma 3 capsules with meals at night MultiThera 1 Capsule (Klaire/Prothera)- multivitamin Take 3 capsules by mouth twice daily with meals. Vitamin D [place] ([employer]) Take 1 capsule by mouth daily with food. ubidecarenone Q-10 (CO Q-10) 50 mg capsule Take 1 capsule by mouth once daily. No current facility-administered medications for this visit. Stop: There are no discontinued medications. Functional Nutrition: Elimination Diet with no grains, no legumes, no starchy veggies Future Plans: Follow up: Please schedule a follow up visit with the following Caregivers: Provider: 8weeks, Correctional Substance Abuse Counselor: 8 weeks and Health Purchasing Assistant: 2 weeks LIFESTYLE PRESCRIPTION Sleep: Sleep goal for most adults is a minimum of 7-9 hours nightly. Studies consistently show that less than 6 hours of sleep for even just a few nights can alter gene expression of over 700 different genes! This can lead to reduced immunity and altered hormone levels which can increase inflammation and cause weight gain, poor blood sugar regulation, memory problems and numerous other negative effects. Please make sleep a priority. Be very protective of your sleep time and find a routine that works for you. Your body (and mind) will thank you!!!! Sleep hygiene tips: Recommend no ?screen activity? at least 1 hour before bed (no TV, computer monitor, iPad, Devon, or Smart Phone usage). Sleep in a cool, dark room. No buzzing or binging objects in your bedroom except alarm clock. Try to get 7-8 hours of sleep per night. -Use the red glasses to help make Melatonin which promote sleep. Buy this on Meridian:WILVER [id number] Laser Enhancement Glasses, about $8 -Listen to calming meditation and sleep music prior to bed. Visit Evergig or use [employer] music available for free on You Tube. -Calming teas such as chamomile, Passion Flower and Holy Basil can help decrease the stress response -Baths with epsom salt and Lavender can help or just soaking your feet in a bucket with this can help -Use dark window shades or consider a set of eye shades for your eyes when trying to sleep Exercise Prescription: Numerous studies confirm the benefits of regular moderate aerobic exercise (walking, swimming, elliptical machine, cycling, etc.) for 30 min 5 days per week (150 min goal). Resistance training for 20 min twice weekly will also help build lean muscle mass, maintain bone mineral density, reduce body fat, and increase metabolic rate (helps you to burn calories more efficiently--even at rest). High intensity interval training-Alternatively, some new research suggest very short, intense bursts of activity for just 4 minutes per day 3-4 times/week may be as effective (or even beter) than longer, low to moderate exercise sessions. If this appeals to you, please try the following: Do 1 exercise such as jumping rope, running in place, Burpees or jump squats for 30-60 seconds as hard as you can. Use a timer to ensure you're at maximal intensity for the full minute. Do this for 60 seconds 4 separate times throughout the day. Alternate days that you do this taking a day off in between. Max 3-4 times a week. If you can go longer than 60 seconds you are not going hard enough! If you choose to do the 4 bursts consecutively you must do something less strenuous (to allow the muscles time to recover) for 4 minutes before you repeat the next 60 second burst. If you cannot complete the next set of 60 seconds then you did not wait long enough for your muscle to recover. However, there is a benefit to dividing the 4 minutes bursts throughout the day vs. all at once. If you do not have the energy to do the above, start with movement. -mild exercise such as gentle yoga, Bryon Chi or walking and able to talk for 30 minutes 3x/week. -moderate exercise such as walking briskly for 30 minutes (you can speak are but occasional short of breath), bicycling, swimming, yoga, Broyn Chi 3x/week for 30 minutes. Stress Management: 1) Please look into this Heart Rate Variability BioFeedback Tool (www.heartmath.org). You can see the research that has been put into this very valuable tool under the Resources and Research tabs. This can be used as an lisbet on your smart phone. You will need to buy a sensor that plugs right into the phone for about $100. First, get one of the Heart Math booklets off [employer] that fits your 'go to' emotion - Transforming Anger, Anxiety, Stress, Depression, or PTSD. Five minutes 3X a day is more effective than 15 minutes in one sitting. 2) A regular, daily meditation practice of at least 15-20 minutes will change your brain--as well as your genes! Preliminary studies demonstrate gene expression is modified in those who meditate regularly leading to down-regulation of pro-inflammatory genes. This results in reduced inflammation, as well as improvements in the body's response to stress via the hormone cortisol, in the intervention groups vs. the controls. Although more research is needed, these findings suggest a definite role for meditation in the treatment and prevention of chronic inflammatory conditions. 3. Other resources to review are: A. Mindfulness CD using [place] Mindfulness CD or MP3 available on Meridian or a free lisbet: headspace or calm. Begin with meditation once per day for 5-15 minutes and then build up to 15 min twice per day as you feel ready. You can also try hemisync music for a deeper meditation as well as yoga breathing to calm the system down. Practice more the water balance and whiskey breath to calm the body down. B Yoga Breathing: Practice breath work to calm the body down. Water Breath / Balanced Breathin-6 breathes per minute When you breathe 4-6 breathes per minute, it has an adaptogenic effect on your nervous system. If you're up, it will bring you down; if you're down, it will bring you up. You can practice Water Breath standing, seated, lying down, and even while driving. Like drinking a glass of water, it's always safe, always appropriate, and always healthful. ? Practice any time, day or night ? Use before high-stress meetings or presentations ? Use if you're feeling sluggish midday ? Use during all yoga practices and low-intensity exercise How to Practice: ? Inhale through your nose 1-2-3-4 ? Exhale through your nose 4-3-2-1 Repeat for at least 10 Whiskey Breath / Down-Regulating Breath: < 4 breathes per minute When you reduce your breath below 4 breathes per minutes, it triggers a strong parasympathetic (rest and digest) nervous system response, reduces your heart rate, reduces activity in skeletal muscles, and improves digestion. This type of breathing is great after meals, in the evening, and most-commonly, right before bed. This practice should be done seated or lying down, and never while driving or doing anything standing or active. It's extremely common for students to fall asleep while using Whiskey Breath, so it should be used with care, only when appropriate. ? Use primarily before bed ? Can be used (with care) to reduce intense stress or anxiety ? After eating, this breathing pattern can aid in digestion How to Practice: ? Sit down or lie down in bed ? Inhale through your nose 1-2-3-4 ? Hold: 1-2-3-4 ? Exhale through your nose 4-3-2-1 ? Hold: 4-3-2-1 ? Repeat for at least 10 rounds (approx 10 min) Practice only while seated or lying down (never while driving) C. Smart phone apps to begin a meditative practice: Headspace (free for first 10 days) Insight Meditation Timer- (Free)-Great all-around lisbet to use for guided meditations of many different types and lengths or just to use as a tool to time and track your meditation practice. This is my absolute favorite! Calm- (Free) Walking Meditations-($1.99) - Get your walk AND meditation done together. A good way to start out for individuals who feel they just can't sit still to begin a meditative practice. Behavioral Health Therapist: If I recommended counseling or individual therapy, please schedule an individual appointment with our Functional Medicine Behavioral Health Therapist , CORINA Ramirez, after your visit today. The Behavioral Health Therapist helps patients identify and understand feelings and behaviors, experience the process of making positive change, and gain healthy coping skills. Health Coaching: Please consider scheduling with our [place] for Functional Medicine health coaches for a phone or virtual visit for accountability, goal setting and help with behavior global climate change analyst the next 6-8 weeks to be successful with your goals. [phone]. During the next 6-8 weeks you'll be working on your diet plan discussed with our storage worker, allowing for gentle detoxification and decreasing inflammation - while we are gathering your lab results and combining those with your complete history to formulate a very personalized treatment plan. LAB results: Due to the complexity of the testing performed, we are not able to review labs via MyChart or over the phone, but please know, if any of your labs are critical we will contact you. Otherwise, we will review all your labs at your next visit. We will go over a lot of information during your follow up visit - so please be well-rested and you may want to bring someone with you, if possible. Also make sure to schedule with the storage worker (this will not happen automatically) as you did with your first visit so that she can review nutritional aspects of your treatment plan. By your 3rd visit, as things are improving, we will likely transition you to one of our very capable Certified Nurse Practitioners/Physician Assistants for further follow-up. Potential future labs: Any Ramos labs ordered take about 4 weeks to return. Do them as soon as possible so that we have the results before your next appointment. You can access them on the [email or web address] website and it can be beneficial if you review them prior to your next visit. [email or web address]. Read about NutrEval if this was ordered. We will go over a lot of information during your follow up visit - so please be well-rested and you may want to bring someone with you, if possible. Also make sure to schedule with the storage worker (this will not happen automatically). Referring Provider: SELF [[id number]] Allergies As of Date: 02/18/2019 (No Known Allergies) Date Reviewed: 02/18/2019 Reviewed by: Lul Perkins Ma - Fully Assessed Reason for Visit: New Patient [[id number]] Primary Visit Diagnosis:Ulcerative pancolitis without complication (HCC) [K51.00] Other Visit Diagnoses:Malaise and fatigue [R53.81, R53.83] History of Clostridium difficile colitis [Z86.19] Mold exposure [Z77.120] Essential hypertension [I10] Mixed hyperlipidemia [E78.2] Order(s):FERRITIN BLD [SQFERR] Order #: [id number] FUTURE TRANSFERRIN BLD [SQTRANSF] Order #: [id number] FUTURE TSH BLD [SQTSH] Order #: [id number] FUTURE T4 FREE/FREE THYROX [SQFT4] Order #: [id number] FUTURE T3 FREE BLD [SQFREET3] Order #: [id number] FUTURE GGT BLD [SQGGT] Order #: [id number] FUTURE HOMOCYSTEINE [SQHOMCYS] Order #: [id number] FUTURE C-REACTIVE ULTRA SEN [SQHSCRP] Order #: [id number] FUTURE INSULIN ASSAY BLOOD [SQINSULN] Order #: [id number] FUTURE HGB A1C [SOLIB4G] Order #: [id number] FUTURE MAGNESIUM RBC [SQMAGRBC] Order #: [id number] FUTURE ZINC BLD [SQZINC] Order #: [id number] FUTURE METHYLMALONIC ACID [SQMMA] Order #: [id number] FUTURE VITAMIN D 25 HYDROXY [SQVITD] Order #: [id number] FUTURE ELVA BY IFA WITH REFLEX [SQANAIFR] Order #: [id number] FUTURE COMPLEMENT COMPONENT 4A [GXVNEC8Z] Order #: [id number] FUTURE OMEGACHECK [SQOMEGAC] Order #: [id number] FUTURE L-Glutamine Powder 5mg/tsp (Pure Encapsulations) gut healing/heart burn5 grams twice per dayDisp: Rfl: 0 Digestive Enzymes Ultra 180 ct. (Pure Encapsulations) supports digestion of food1-2 capsules with mealsDisp: Rfl: 0 Saccharomyces Boulardii (Klaire/Prothera) good yeast (FRIDGE)Take 2 capsules by mouth once daily.Disp: Rfl: 0 Ther-Biotic Complete Capsules (Klaire/Prothera) probiotic (FRIDGE)Take 1 capsule by mouth once daily.Disp: Rfl: 0 One Ferrum (Pure Encapsulation) -- fish oilTake 2 capsules by mouth daily with food.Disp: Rfl: 0 Magnesium Glycinate 120mg 3 at night Stress, blood sugar, thyroid/hormones/adrena ls/sleep/energy/toxins/ muscles/constipation/as t- hma3 capsules with meals at nightDisp: Rfl: 0 MultiThera 1 Capsule (Klaire/Prothera)- multivitaminTake 3 capsules by mouth twice daily with meals.Disp: Rfl: 0 Vitamin D [place] ([employer])Take 1 capsule by mouth daily with food.Disp: Rfl: ubidecarenone Q-10 (CO Q-10) 50 mg capsuleTake 1 capsule by mouth once daily.Disp: 60 capsuleRfl: 0 FM GI EFFECTS, 3 STOOL SPECIMENS [SQFMGI] Order #: [id number] FUTURE Prescriptions as of 02/18/2019 Sig: OTC NUTRITIONAL SUPPLEMENT 5 grams twice per day OTC NUTRITIONAL SUPPLEMENT 1-2 capsules with meals OTC NUTRITIONAL SUPPLEMENT Take 2 capsules by mouth once* OTC NUTRITIONAL SUPPLEMENT Take 1 capsule by mouth once * OTC NUTRITIONAL SUPPLEMENT Take 2 capsules by mouth kylee* OTC NUTRITIONAL SUPPLEMENT 3 capsules with meals at night OTC NUTRITIONAL SUPPLEMENT Take 3 capsules by mouth twic* OTC NUTRITIONAL SUPPLEMENT Take 1 capsule by mouth daily* COENZYME Q10 50 MG CAPSULE Take 1 capsule by mouth once * Problem List As Of Date: 02/18/2019 (None) Other instructions from your clinician: Assessment Assessment: R53.81, R53.83 Malaise and fatigue (primary encounter diagnosis) K51.00 Ulcerative pancolitis without complication (HCC) Z86.19 History of Clostridium difficile colitis Z77.120 Mold exposure I10 Essential hypertension E78.2 Mixed hyperlipidemia Initial Functional Medicine Assessment Underlying Causes: stress, trauma, toxins, adverse reaction to food, infection, nutritional insufficiencies or excessess, sleep Today's Focus: gut healing, stool study Nutritional Assessment Food sensitivity Digestive Function Ulcerative Colitis Inflammation/Immune Function Ulcerative Colitis Cold intolerance Environmental allergies Hyperlipidemia hypertension Energy Production/Function: Insufficient sleep Fatigue Detoxification Function ?Mold exposure Heavy metals-silver amalgams Pesticide/insecticide Sensitivity to smoke Denies tick bite Hormonal Function: Anxiety Perimenopausal-every 4 month period Structural Function: Thumb pain Additional Recommendations: Natural ways to detox: 1. IR saunas 1-3 min to start, on lowest setting, and increase as tolerated to maximum time 30 minutes 3-5x/week. 2. Dry brushing: use loofah brush over body, always moving towards the heart daily before showering. If you feel worse with the above two, this is a sign of a lot of toxin build up, decrease what you are doing to the level you can tolerate. 3. Air quality in your house and work are important. Consider investing in a good quality air purifier to clean the air. You can visit www.TuneIn to learn more. If you wish to buy one from them, you can use the health partner code 189. Other ways to improve air quality are to keep windows open even for a few minutes to improve air quality, changing your HVAC filter more often and using a higher grade (10 is preferred). You can also open the windows to let the air circulate. Outside air generally is house cleaner than indoor air. 4. Drink water: an appropriate amount is 1/2 your body weight in ounces. (For example, if your child weighs 50lbs, your child should drink 25oz.). Please add organic lemon and if you do not have organic lemon, just squeeze the lemon juice and throw away the rind which is where the pesticides are. 5. Eat organic as much as possible. Please visit the environmental working group to learn about fruits and veggies with the highest amount of toxins on them called the dirty dozen. EWG.org. Try to eat clean sources of meat as well. If you can not afford this, more vegetables than fruits are important to consume since they help up regulate your detoxification ability. 6. Get the free lisbet: think dirty. It evaluates your personal care products and household products to make sure they are toxin free or low in toxins. Aim for a grade of 3 or less. 7. You can also do an epsom salt bath every night. This helps your child absorb magnesium topically. Add at least 1/2 cup epsom salt with baking soda 1/2 cup to further alkalinize the body. 8. Read Toxic Home/Conscious Home by Faheem Negrete MD on how to make your house more toxin free Plan and Lifestyle Prescription Today's Plan/Instructions/Resou rces: Gut healing 1. Stool study 2. Start diet 3. Start supplements one at a time, use only what you can tolerate. Add new supplement every 3-4 days if you are okay with it. If you can not tolerate something, do not use it. Finish yours and add below A. Digestive enzymes B. L glutamine C Probiotics D. Magnesium E. Ferrum 3 F. Vitamin d with K G. Saccromyces B. 3bill 3 tabs 2x/day H. Co q 10 4. For EMDR (Eye Movement Desensitization Reprocessing) Go to www.emdr.com 5. Smoothie: protein powder, collagen powder 1 scoop daily, almond milk, 1 tbsp nut butter, 1-2 tbsp evoo, 1-2 tbsp MCT oil, 1/2 banana 1-3 tbsp of a mix of flax/opal/hemp (start slow and increase as tolerated), soluble fiber: isabell's fiber preston 1-2 tsp daily can add probiotics, L glutamine, vitamin d/k Instructions AND Resources [facility] labs GI effects with Zonulin Medications/Supplements Recommended: No orders of the defined types were placed in this encounter. Medication orders placed this encounter Digestive Enzymes Ultra 180 ct. (Pure Encapsulations) supports digestion of food Si-2 capsules with meals Refill: 0 L-Glutamine Powder 5mg/tsp (Pure Encapsulations) gut healing/heart burn Si grams twice per day Refill: 0 Magnesium Glycinate 120mg 3 at night Stress, blood sugar, thyroid/hormones/adrena ls/sleep/energy/toxins/ muscles/constipation/as thma Si capsules with meals at night Refill: 0 MultiThera 1 Capsule (Klaire/Prothera)- multivitamin Sig: Take 3 capsules by mouth twice daily with meals. Refill: 0 One Ferrum (Pure Encapsulation) -- fish oil Sig: Take 2 capsules by mouth daily with food. Refill: 0 Saccharomyces Boulardii (Klaire/Prothera) good yeast (FRIDGE) Sig: Take 2 capsules by mouth once daily. Refill: 0 Ther-Biotic Complete Capsules (Klaire/Prothera) probiotic (FRIDGE) Sig: Take 1 capsule by mouth once daily. Refill: 0 ubidecarenone Q-10 (CO Q-10) 50 mg capsule Sig: Take 1 capsule by mouth once daily. Dispense: 60 capsule Refill: 0 Vitamin D [place] ([employer]) Sig: Take 1 capsule by mouth daily with food. I recommend the supplements from the [facility] Healthy Living Store at https://store.tenXer/ . Continue: Current Outpatient Medications: L-Glutamine Powder 5mg/tsp (Pure Encapsulations) gut healing/heart burn 5 grams twice per day Digestive Enzymes Ultra 180 ct. (Pure Encapsulations) supports digestion of food 1-2 capsules with meals Saccharomyces Boulardii (Klaire/Prothera) good yeast (FRIDGE) Take 2 capsules by mouth once daily. Ther-Biotic Complete Capsules (Klaire/Prothera) probiotic (FRIDGE) Take 1 capsule by mouth once daily. One Ferrum (Pure Encapsulation) -- fish oil Take 2 capsules by mouth daily with food. Magnesium Glycinate 120mg 3 at night Stress, blood sugar, thyroid/hormones/adrena ls/sleep/energy/toxins/ muscles/constipation/as thma 3 capsules with meals at night MultiThera 1 Capsule (Klaire/Prothera)- multivitamin Take 3 capsules by mouth twice daily with meals. Vitamin D [place] ([employer]) Take 1 capsule by mouth daily with food. ubidecarenone Q-10 (CO Q-10) 50 mg capsule Take 1 capsule by mouth once daily. No current facility-administered medications for this visit. Stop: There are no discontinued medications. Functional Nutrition: Elimination Diet with no grains, no legumes, no starchy veggies Future Plans: Follow up: Please schedule a follow up visit with the following Caregivers: Provider: 8weeks, Correctional Substance Abuse Counselor: 8 weeks and Health Purchasing Assistant: 2 weeks LIFESTYLE PRESCRIPTION Sleep: Sleep goal for most adults is a minimum of 7-9 hours nightly. Studies consistently show that less than 6 hours of sleep for even just a few nights can alter gene expression of over 700 different genes! This can lead to reduced immunity and altered hormone levels which can increase inflammation and cause weight gain, poor blood sugar regulation, memory problems and numerous other negative effects. Please make sleep a priority. Be very protective of your sleep time and find a routine that works for you. Your body (and mind) will thank you!!!! Sleep hygiene tips: Recommend no ?screen activity? at least 1 hour before bed (no TV, computer monitor, iPad, Devon, or Smart Phone usage). Sleep in a cool, dark room. No buzzing or binging objects in your bedroom except alarm clock. Try to get 7-8 hours of sleep per night. -Use the red glasses to help make Melatonin which promote sleep. Buy this on Meridian:Ateo [id number] Laser Enhancement Glasses, about $8 -Listen to calming meditation and sleep music prior to bed. Visit Evergig or use Vtapsync music available for free on You Tube. -Calming teas such as chamomile, Passion Flower and Holy Basil can help decrease the stress response -Baths with epsom salt and Lavender can help or just soaking your feet in a bucket with this can help -Use dark window shades or consider a set of eye shades for your eyes when trying to sleep Exercise Prescription: Numerous studies confirm the benefits of regular moderate aerobic exercise (walking, swimming, elliptical machine, cycling, etc.) for 30 min 5 days per week (150 min goal). Resistance training for 20 min twice weekly will also help build lean muscle mass, maintain bone mineral density, reduce body fat, and increase metabolic rate (helps you to burn calories more efficiently--even at rest). High intensity interval training-Alternatively, some new research suggest very short, intense bursts of activity for just 4 minutes per day 3-4 times/week may be as effective (or even beter) than longer, low to moderate exercise sessions. If this appeals to you, please try the following: Do 1 exercise such as jumping rope, running in place, Burpees or jump squats for 30-60 seconds as hard as you can. Use a timer to ensure you're at maximal intensity for the full minute. Do this for 60 seconds 4 separate times throughout the day. Alternate days that you do this taking a day off in between. Max 3-4 times a week. If you can go longer than 60 seconds you are not going hard enough! If you choose to do the 4 bursts consecutively you must do something less strenuous (to allow the muscles time to recover) for 4 minutes before you repeat the next 60 second burst. If you cannot complete the next set of 60 seconds then you did not wait long enough for your muscle to recover. However, there is a benefit to dividing the 4 minutes bursts throughout the day vs. all at once. If you do not have the energy to do the above, start with movement. -mild exercise such as gentle yoga, Bryon Chi or walking and able to talk for 30 minutes 3x/week. -moderate exercise such as walking briskly for 30 minutes (you can speak are but occasional short of breath), bicycling, swimming, yoga, Bryon Chi 3x/week for 30 minutes. Stress Management: 1) Please look into this Heart Rate Variability BioFeedback Tool (www.heartmath.org). You can see the research that has been put into this very valuable tool under the Resources and Research tabs. This can be used as an lisbet on your smart phone. You will need to buy a sensor that plugs right into the phone for about $100. First, get one of the Heart Math booklets off [employer] that fits your 'go to' emotion - Transforming Anger, Anxiety, Stress, Depression, or PTSD. Five minutes 3X a day is more effective than 15 minutes in one sitting. 2) A regular, daily meditation practice of at least 15-20 minutes will change your brain--as well as your genes! Preliminary studies demonstrate gene expression is modified in those who meditate regularly leading to down-regulation of pro-inflammatory genes. This results in reduced inflammation, as well as improvements in the body's response to stress via the hormone cortisol, in the intervention groups vs. the controls. Although more research is needed, these findings suggest a definite role for meditation in the treatment and prevention of chronic inflammatory conditions. 3. Other resources to review are: A. Mindfulness CD using [place] Mindfulness CD or MP3 available on [employer] or a free lisbet: headspace or calm. Begin with meditation once per day for 5-15 minutes and then build up to 15 min twice per day as you feel ready. You can also try hemisync music for a deeper meditation as well as yoga breathing to calm the system down. Practice more the water balance and whiskey breath to calm the body down. B Yoga Breathing: Practice breath work to calm the body down. Water Breath / Balanced Breathin-6 breathes per minute When you breathe 4-6 breathes per minute, it has an adaptogenic effect on your nervous system. If you're up, it will bring you down; if you're down, it will bring you up. You can practice Water Breath standing, seated, lying down, and even while driving. Like drinking a glass of water, it's always safe, always appropriate, and always healthful. ? Practice any time, day or night ? Use before high-stress meetings or presentations ? Use if you're feeling sluggish midday ? Use during all yoga practices and low-intensity exercise How to Practice: ? Inhale through your nose 1-2-3-4 ? Exhale through your nose 4-3-2-1 Repeat for at least 10 Whiskey Breath / Down-Regulating Breath: < 4 breathes per minute When you reduce your breath below 4 breathes per minutes, it triggers a strong parasympathetic (rest and digest) nervous system response, reduces your heart rate, reduces activity in skeletal muscles, and improves digestion. This type of breathing is great after meals, in the evening, and most-commonly, right before bed. This practice should be done seated or lying down, and never while driving or doing anything standing or active. It's extremely common for students to fall asleep while using Whiskey Breath, so it should be used with care, only when appropriate. ? Use primarily before bed ? Can be used (with care) to reduce intense stress or anxiety ? After eating, this breathing pattern can aid in digestion How to Practice: ? Sit down or lie down in bed ? Inhale through your nose 1-2-3-4 ? Hold: 1-2-3-4 ? Exhale through your nose 4-3-2-1 ? Hold: 4-3-2-1 ? Repeat for at least 10 rounds (approx 10 min) Practice only while seated or lying down (never while driving) C. Smart phone apps to begin a meditative practice: Headspace (free for first 10 days) Insight Meditation Timer- (Free)-Great all-around lisbet to use for guided meditations of many different types and lengths or just to use as a tool to time and track your meditation practice. This is my absolute favorite! Calm- (Free) Walking Meditations-($1.99) - Get your walk AND meditation done together. A good way to start out for individuals who feel they just can't sit still to begin a meditative practice. Behavioral Health Therapist: If I recommended counseling or individual therapy, please schedule an individual appointment with our Functional Medicine Behavioral Health Therapist , CORINA Ramirez, after your visit today. The Behavioral Health Therapist helps patients identify and understand feelings and behaviors, experience the process of making positive change, and gain healthy coping skills. Health Coaching: Please consider scheduling with our [place] for Functional Medicine health coaches for a phone or virtual visit for accountability, goal setting and help with behavior global climate change analyst the next 6-8 weeks to be successful with your goals. [phone]. During the next 6-8 weeks you'll be working on your diet plan discussed with our storage worker, allowing for gentle detoxification and decreasing inflammation - while we are gathering your lab results and combining those with your complete history to formulate a very personalized treatment plan. LAB results: Due to the complexity of the testing performed, we are not able to review labs via MyChart or over the phone, but please know, if any of your labs are critical we will contact you. Otherwise, we will review all your labs at your next visit. We will go over a lot of information during your follow up visit - so please be well-rested and you may want to bring someone with you, if possible. Also make sure to schedule with the storage worker (this will not happen automatically) as you did with your first visit so that she can review nutritional aspects of your treatment plan. By your 3rd visit, as things are improving, we will likely transition you to one of our very capable Certified Nurse Practitioners/Physician Assistants for further follow-up. Potential future labs: Any Ramos labs ordered take about 4 weeks to return. Do them as soon as possible so that we have the results before your next appointment. You can access them on the [email or web address] website and it can be beneficial if you review them prior to your next visit. [email or web address]. Read about NutrEval if this was ordered. We will go over a lot of information during your follow up visit - so please be well-rested and you may want to bring someone with you, if possible. Also make sure to schedule with the storage worker (this will not happen automatically). Visit Notes: >> Lul Perkins Ma Mindy Feb 18, 2019 8:56 AM Status: Signed Bioelectrical Impedance Analysis Results by [employer] Recent Results from: 02/18/19 at 8:53 AM BMI: 24.03 kg/m? General Test Result Range Phase Angle (PA) 4.4 Min: 6.2 Mean: 7.1 Max: 8 Basal Metabolic Rate (BMR) 1365 Min: 1236.8 Mean: 1412.9 Max: 1589 Fat AND Fat Free Mass Test Result Range Fat (lbs) 61.2 Min: 40.3 Mean: 66.3 Max: 92.3 Fat % 41.1 Min: 31.6 Mean: 38.6 Max: 45.6 Fat Free Mass (FFM) lbs 87.7 Min: 84.2 Mean: 99.9 Max: 115.6 Total Body Water Test Result Range TBW (lbs) 61.9 Min: 62.6 Mean: 74.5 Max: 86.4 TBW % of FFM 70.6 Min: 73.3 Mean: 74.6 Max: 75.9 Intracellular Water Test Result Range ICW (lbs) 31.6 Min: 34.3 Mean: 39.2 Max: 44.1 ICW % of FFM 36 Min: 37.9 Mean: 39.4 Max: 40.9 Extracellular Water Test Result Range ECW (lbs) 30.4 Min: 28.4 Mean: 35.5 Max: 42.6 ECW % of FFM 34.7 Min: 33.5 Mean: 35.2 Max: 36.9 MSQ Initial Blood pressure 117/83, pulse 89, height 167.6 cm (5' 6), weight 67.5 kg (148 lb 14.4 oz). Clock Test Completed? : No MoCA (Donte Cognitive Assessment) Test Completed? No Folstein Test Completed?: No AMB ROOMING INTAKE FLOWSHEET DATA Risk Screening Do you have concerns about personal safety or safety in the home?: No Lul Perkins Ma Prescriptions ordered this encounter Disp Refills Start End OTC NUTRITIONAL SUPPLEMENT 0 02/18/2019 Class: OTC Si grams twice per day OTC NUTRITIONAL SUPPLEMENT 0 02/18/2019 Class: OTC Si-2 capsules with meals OTC NUTRITIONAL SUPPLEMENT 0 02/18/2019 Class: OTC Route: ORAL Sig: Take 2 capsules by mouth once daily. OTC NUTRITIONAL SUPPLEMENT 0 02/18/2019 Class: OTC Route: ORAL Sig: Take 1 capsule by mouth once daily. OTC NUTRITIONAL SUPPLEMENT 0 02/18/2019 Class: OTC Route: ORAL Sig: Take 2 capsules by mouth daily with food. OTC NUTRITIONAL SUPPLEMENT 0 02/18/2019 Class: OTC Si capsules with meals at night OTC NUTRITIONAL SUPPLEMENT 0 02/18/2019 Class: OTC Route: ORAL Sig: Take 3 capsules by mouth twice daily with meals. OTC NUTRITIONAL SUPPLEMENT 02/18/2019 Class: OTC Route: ORAL Sig: Take 1 capsule by mouth daily with food. COENZYME Q10 50 MG CAPSULE 60 c* 0 02/18/2019 Class: OTC Route: ORAL Sig: Take 1 capsule by mouth once daily. Encounter Status:Closed by AMY REED MD on 02/18/19 Normal [facility] Complement Comp 4Aon 019 Complement 4A Level 2732 ng/mL Normal 0-2830 [facility] Comment on above: Result Comment: (NOT E) This test uses a kit/reagent designated by the child day care center worker as for research use, not for clinical use. The performance characteristics of this test have been validated by [facility]. It has not been cleared or approved by the U.S. Food and Drug Administration. The results are not intended to be used as the sole means for clinical diagnosis or patient management decisions. This laboratory is certified under the Clinical Laboratory Improvement Amendments of 1988 (CLIA-88) as qualified to perform high complexity clinical laboratory testing. Testing performed at [facility] [address] [address] CLIA [id number] Performed By: #### H OMCYS, FREET3, FT4, HBA1C, INSULN, GGT, HSCRP, TRANSF, VITD, FERR, TSH, MAGRBC, ZINC, ANAIFR, MMA, COMP4A ####[facility] [place], [place] [phone] Ferritinon 02-18-2019 Ferritin [Mass/Vol] 363.0 ng/mL High 14.7-205.1 [facility] Comment on above: Performed By: #### H OMCYS, FREET3, FT4, HBA1C, INSULN, GGT, HSCRP, TRANSF, VITD, FERR, TSH, MAGRBC, ZINC, ANAIFR, MMA, COMP4A ####[facility] [place], [place] [phone] Free T3on 02-18-2019 Free T3 [Mass/Vol] 2.4 pg/mL Normal 2.3-4.1 [facility] Comment on above: Performed By: #### H OMCYS, FREET3, FT4, HBA1C, INSULN, GGT, HSCRP, TRANSF, VITD, FERR, TSH, MAGRBC, ZINC, ANAIFR, MMA, COMP4A #### [facility] [address] [place], [place] [address] Free T4on 02-18-2019 Free T4 [Mass/Vol] 1.2 ng/dL Normal 0.9-1.7 [facility] Comment on above: Performed By: #### H OMCYS, FREET3, FT4, HBA1C, INSULN, GGT, HSCRP, TRANSF, VITD, FERR, TSH, MAGRBC, ZINC, ANAIFR, MMA, COMP4A #### [facility] [place] [id number] GGTon 02-18-2019 Gamma glutamyl transferase [Catalytic activity/Vol] 15 U/L Normal 6-46 [facility] Comment on above: Performed By: #### H OMCYS, FREET3, FT4, HBA1C, INSULN, GGT, HSCRP, TRANSF, VITD, FERR, TSH, MAGRBC, ZINC, ANAIFR, MMA, COMP4A #### [place] [phone] Hemoglobin A1con 02-18-2019 HbA1c (Bld) [Mass fraction] 5.4 % Normal 4.3-5.6 [facility] Comment on above: Result Comment: Amer [place] Diabetes Association guidelines indicate that patients with HgbA1c in the range 5.7-6.4% are at increased risk for development of diabetes, and intervention by lifestyle modification may be beneficial. HgbA1c greater or equal to 6.5% is considered diagnostic of diabetes. Performed By: #### H OMCYS, FREET3, FT4, HBA1C, INSULN, GGT, HSCRP, TRANSF, VITD, FERR, TSH, MAGRBC, ZINC, ANAIFR, MMA, COMP4A #### [place] [id number] [place] [phone] HbA1c (Bld) [Mass fraction] 108 mg/dL Normal [facility] Comment on above: Result Comment: eAG: (Estimated average glucose) is a calculated value from HgbA1c and is technical support representative of the average blood glucose level in the last 2-3 month period. Performed By: #### H OMCYS, FREET3, FT4, HBA1C, INSULN, GGT, HSCRP, TRANSF, VITD, FERR, TSH, MAGRBC, ZINC, ANAIFR, MMA, COMP4A #### [facility] [place] [phone] Homocysteineon 02-18-2019 Homocysteine 7.6 umol/L Normal <15.1 [facility] Comment on above: Performed By: #### H OMCYS, FREET3, FT4, HBA1C, INSULN, GGT, HSCRP, TRANSF, VITD, FERR, TSH, MAGRBC, ZINC, ANAIFR, MMA, COMP4A #### [facility] [address] [place], [place] [address] Insulinon 02-18-2019 Insulin 3.0 mU/L Normal 3.0-25.0 [facility] Comment on above: Performed By: #### H OMCYS, FREET3, FT4, HBA1C, INSULN, GGT, HSCRP, TRANSF, VITD, FERR, TSH, MAGRBC, ZINC, ANAIFR, MMA, COMP4A #### [facility] [address] [place], [place] [address] Magnesium, RBCon 02-18-2019 Magnesium RBC 4.0 mg/dL Normal 4.0-6.5 [facility] Comment on above: Result Comment: This test was developed and its performance characteristics determined by [facility] [place] ([facility]). It has not been cleared or approved by the FDA. [facility] is regulated under CLIA as qualified to perform high complexity testing. This test is used for clinical purposes. It should not be regarded as investigational or for research. Performed By: #### H OMCYS, FREET3, FT4, HBA1C, INSULN, GGT, HSCRP, TRANSF, VITD, FERR, TSH, MAGRBC, ZINC, ANAIFR, MMA, COMP4A ####[facility] [place], [place] [phone] Methylmalonic Acidon 019 Methylmalonic Acid 126 nmol/L Normal 79-376 [facility] Comment on above: Result Comment: This test was developed and its performance characteristics determined by [facility] Pathology and [facility] [place] ( [facility]). It has not been cleared or approved by the FDA. [facility] is regulated under CLIA as qualified to perform high complexity testing. This test is used for clinical purposes. It should not be regarded as investigational or for research. Performed By: #### H OMCYS, FREET3, FT4, HBA1C, INSULN, GGT, HSCRP, TRANSF, VITD, FERR, TSH, MAGRBC, ZINC, ANAIFR, MMA, COMP4A ####[address] [phone] OmegaCheckon 02-18-2019 Arach A/EPA Ratio 7.1 Normal 3.7-40.7 [facility] Comment on above: Result Comment: (NOT E) Please note new reference range effective November 02, 2018. This reference range (3.7-40.7) replaces the previous reference range of <5.0. Test performed at: [facility] [address], [facility] [address] [place] [phone] Keivn Ness MD Performed By: #### H OMCYS, FREET3, FT4, HBA1C, INSULN, GGT, HSCRP, TRANSF, VITD, FERR, TSH, MAGRBC, ZINC, ANAIFR, MMA, COMP4A ####[address] [phone] Arachidonic Acid 10.6 % by wt Normal 8.6-15.6 [facility] Comment on above: Result Comment: (NOT E) Please note new reference range effective November 02, 2018. This reference range (8.6-15.6% by wt) replaces the previous reference range of <9.0% by wt. Performed By: #### H OMCYS, FREET3, FT4, HBA1C, INSULN, GGT, HSCRP, TRANSF, VITD, FERR, TSH, MAGRBC, ZINC, ANAIFR, MMA, COMP4A ####[address] [phone] DHA 3.8 % by wt Normal 1.4-5.1 [facility] Comment on above: Result Comment: (NOT E) Please note new reference range effective November 02, 2018. This reference range (1.4-5.1% by wt) replaces the previous reference range of >4.0% by wt. Performed By: #### H OMCYS, FREET3, FT4, HBA1C, INSULN, GGT, HSCRP, TRANSF, VITD, FERR, TSH, MAGRBC, ZINC, ANAIFR, MMA, COMP4A ####[address] [phone] DPA 1.4 % by wt Normal 0.8-1.8 [facility] Comment on above: Result Comment: (NOT E) Please note new reference range effective November 02, 2018. This reference range (0.8-1.8% by wt) replaces the previous reference range of >1.0% by wt. Performed By: #### H OMCYS, FREET3, FT4, HBA1C, INSULN, GGT, HSCRP, TRANSF, VITD, FERR, TSH, MAGRBC, ZINC, ANAIFR, MMA, COMP4A ####[address] [phone] EPA 1.5 % by wt Normal 0.2-2.3 [facility] Comment on above: Result Comment: (NOT E) Please note new reference range effective November 02, 2018. This reference range (0.2-2.3% by wt) replaces the previous reference range of >2.0% by wt. Performed By: #### H OMCYS, FREET3, FT4, HBA1C, INSULN, GGT, HSCRP, TRANSF, VITD, FERR, TSH, MAGRBC, ZINC, ANAIFR, MMA, COMP4A ####[address] [phone] Linoleic Acid 24.2 % by wt Normal 18.6-29.5 [facility] Comment on above: Result Comment: (NOT E) Please note new reference range effective November 02, 2018. This reference range (18.6-29.5% by wt) replaces the previous reference range of <20.0% by wt. Performed By: #### H OMCYS, FREET3, FT4, HBA1C, INSULN, GGT, HSCRP, TRANSF, VITD, FERR, TSH, MAGRBC, ZINC, ANAIFR, MMA, COMP4A ####[address] [phone] [place]um 3 Total 6.7 % by wt Normal [facility] Comment on above: Performed By: #### H OMCYS, FREET3, FT4, HBA1C, INSULN, GGT, HSCRP, TRANSF, VITD, FERR, TSH, MAGRBC, ZINC, ANAIFR, MMA, COMP4A ####[address] [phone] [place]um 6 Total 36.8 % by wt Normal [facility] Comment on above: Result Comment: (NOT E) [facility] measures a number of omega-6 fatty acids with AA and LA being the two most abundant forms reported. Performed By: #### H OMCYS, FREET3, FT4, HBA1C, INSULN, GGT, HSCRP, TRANSF, VITD, FERR, TSH, MAGRBC, ZINC, ANAIFR, MMA, COMP4A ####[address] [phone] Ferrum-6/3 Ratio 5.5 Normal 3.7-14.4 [facility] Comment on above: Result Comment: (NOT E) Please note new reference range effective November 02, 2018. This reference range (3.7-14.4) replaces the previous reference range of <4.5. Performed By: #### H OMCYS, FREET3, FT4, HBA1C, INSULN, GGT, HSCRP, TRANSF, VITD, FERR, TSH, MAGRBC, ZINC, ANAIFR, MMA, COMP4A ####[address] [phone] OmegaCheck 6.7 % by wt Normal >5.4 [facility] Comment on above: Result Comment: (NOT E) Increasing blood levels of long-chain n-3 fatty acids are associated with a lower risk of sudden cardiac (1). Based on the top (75th percentile) and bottom (25th percentile) quartiles of the [facility] reference population, the following risk categories were established for OmegaCheck: A cut-off of >=5.5% by wt defines a population at low relative risk, 3.8-5.4% by wt defines a population at moderate relative risk, and <=3.7% by wt defines a population at high relative risk of sudden cardiac . The totality of the scientific evidence demonstrates that when consumption of fish oils is limited to 3 g/day or less of EPA and DHA, there is no significant risk for increased bleeding time beyond the normal range. A daily dosage of 1 gram of EPA and DHA lowers the circulating triglycerides by about 7-10% within 2 to 3 weeks. (Reference: 1-Rubin et al. [facility]. 2002; 346: 6646-3991). This test is performed by a Liquid Chromatography-Tandem Mass Spectrometry (LC/MS/MS) method. This test was developed and its performance characteristics determined by the [facility] It has not been cleared or approved by the U.S. FDA. The [facility] is regulated under Clinical Laboratory Improvement Amendments (CLIA) as qualified to perform high-complexity testing. This test is used for clinical purposes. It should not be regarded as investigational or for research. Performed By: #### H OMCYS, FREET3, FT4, HBA1C, INSULN, GGT, HSCRP, TRANSF, VITD, FERR, TSH, MAGRBC, ZINC, ANAIFR, MMA, COMP4A ####[facility] [id number] [place], [place] [phone] PROGRESSon 02-18-2019 PROGRESS HNO ID: [id number] Author: Maci Vega Service: ? Author Type: Registered Dietitian Type: Progress Notes Filed: 02/18/2019 12:21 PM Note Text: GROUP HEALTH ACADEMIC ASSOCIATE COHORT Patient was part of an in-person, group health reading coach session. Patient received education and participated in discussion about modifiable lifestyle factors and healthy habits, including mindful eating, movement and exercise, stress management, and sleep hygiene. Other topics of discussion included Functional Medicine process, scheduling, and the Healthy Living shop. ....................... ....................... ....................... ...... ....................... ....................... ................... FOLLOW UP: Educational materials provided: Resource sheet, and Health coaching information. Additional support needed: Phone Consultations with Health Purchasing Assistant in 2-3 weeks Time Spent with patient: 30 minutes Consult Billing Type: 1 increment (30 minutes) Number of Increments: 1 (30 minutes) Signed by: Maci Vega RDN, LD, IBCLC Health Purchasing Assistant Normal [facility] PROGRESS HNO ID: [id number] Author: Leny Mason Service: ? Author Type: Registered Dietitian Type: Progress Notes Filed: 02/18/2019 11:45 AM Note Text: [facility] Nutrition Therapy: Initial Assessment (Group) Patient Name: Virginia Villagran Class Topic: Functional Nutrition and Elimination Diet Introduction Education Materials: IFM Elimination Diet Food List, Weekly Case Briefer and Recipes, Comprehensive Guide, Adaptable Meals, Dirty Dozen Chief Concerns: 1. Ulcerative Colitis 2. Scalp itchiness (dry spots, dandruff) 3. Hypertension 4. Anxiety Patient goal: I would like to avoid having to go on immunomodulator meds for my ulcerative colitis. I have had ulcerative colitis for about 35 years. It was well controlled with oral balsalazide for about fourteen years, but last fall I had a flare-up, followed a month later by a c-diff infection, and I have not been able to get back into full remission since. My people manager is recommending Azathioprine, but I am very reluctant to take a med that decreases my natural immunity. I want to find out if it can be controlled in a healthier manner. MSQ Score: from 13, 02/18 Is the patient having any pain that is interfering with oral intake? No Past Medical History: No past medical history on file. Anthropometrics: Vitals 02/18/2019 SITTING SYSTOLIC 117 SITTING DIASTOLIC 83 PULSE 89 WEIGHT in POUNDS 148 lb 14.4 oz WEIGHT in KILOGRAMS 67.541 kg HEIGHT in INCHES 66 in. HEIGHT in CM 167.6 cm SITTING BP 117/83 BODY MASS INDEX 24.03 Lifestyle: Weight issues: No Adequate, restful sleep?: No, 7 hours with problems staying asleep, problems falling asleep, and feeling tired upon waking Currently exercising?: No GI symptoms:Yes, bloating, diarrhea, strong stool odor, undigested food in stool (sunflower seeds), and small amount of blood in stools after UC flare-up, constipation when UC is in remission with bowel movement every 3-4 days Dietary pattern: Current diet: Yes, following an elimination diet (No Dairy, No Wheat, Gluten Free, No added sugar) Food allergies:No Food sensitivities: Yes, gluten (deal with sugar cravings when I include it in my diet) certain nuts, asparagus, large amounts of heavy dairy (loose stools), caffeine (makes me feel unbalanced/uncontrolled ) Reported lifestyle behaviors and eating habits:Late-night eating, Time constraints, Healthy foods not readily available, Love to eat, Emotional eater-eat when sad, lonely, bored, etc., Eat too much under stress, Don't care to cook Diet Recall: Yes, reviewed. Breakfast: None or two hard-boiled eggs Lunch Salad with chicken breast meat and mushrooms; or a chicken breast; with applesauce sweetened with stevia Dinner: Eggs, fish, or shrimp, perhaps some fruit or a vegetable Snacks: Gluten-free crackers, applesauce sweetened with stevia Beverages: Water, iced tea sweetened with stevia, hot black or green tea, usually decaffeinated, sometimes Vitamin Water Zero Excessive stress reported?: Yes, 01/20 related to work. Going to [email or web address] therapy. 48 year old female presents for nutrition assessment relative to UC. C/o itching skin (scalp, improved without dairy), concerns for medication side effects (immunosuppressants), anxiety. Past medical history of HTN, hyperlipidemia, mold exposure. Diet recall includes aims to be gluten, dairy, and added sugar free; continues yogurt/cottage cheese, notes significant cravings/attachment to sugar. Due to multiple digestive symptoms, patient would benefit from whole foods, plant based, low glycemic food plan that minimizes potential food triggers and utilizes strategies to aid in good digestion. - elimination, low carbohydrate. No grains, 1 cup starchy vegetables daily. Provider Nutrition Notes: Elimination Diet with no grains, no legumes, no starchy veggies Nutrition Diagnosis: Altered GI function related to UC as evidenced by patient reported digestive issues R53.81, R53.83 Malaise and fatigue (primary encounter diagnosis) K51.00 Ulcerative pancolitis without complication (HCC) Z86.19 History of Clostridium difficile colitis Z77.120 Mold exposure I10 Essential hypertension E78.2 Mixed hyperlipidemia Nutrition Intervention 02/17/2019: Nutrition education: 1. Whole foods, plant based, low glycemic, comprehensive elimination diet 2. Adequate hydration 3. Self-Monitoring: Track food/beverage intake 4. Schedule follow up for food reintroduction and further personalization of eating plan Nutrition Monitoring AND Evaluation: Adherence to elimination diet Criteria: Patient recall, food diary Follow up: 8 weeks Time Spent: 60 minutes Referred/Supervised by: Dr. Amy Reed Consult Billing Type: Group/60 minutes Number of Increments: 2 (60 minutes) Abstract prepared by: Sai Lew RD Signed by: Leny Mason RD, MAHAD [facility] PROGRESS HNO ID: [id number] Author: Amy Reed Service: ? Author Type: Physician Type: Progress Notes Filed: 02/18/2019 9:58 AM Note Text: FUNCTIONAL MEDICINE INITIAL ASSESSMENT Patient: Virginia Villagran 67.5 kg (148 lb 14.4 oz) 167.6 cm (5' 6) Body mass index is 24.03 kg/m?. RMR can't be calculated - Height unrecorded. Waist measurement: No waist measurement recorded. BP: 117/83 ALLERGIES No Known Allergies No current outpatient medications on file prior to visit. No current facility-administered medications on file prior to visit. No past medical history on file. No past surgical history on file. Social History Socioeconomic History Marital status: Spouse name: Not on file Number of children: Not on file Years of education: Not on file Highest education level: Not on file Occupational History Not on file Social Needs Financial resource strain: Not on file Food insecurity: Worry: Not on file Inability: Not on file Transportation needs: Medical: Not on file Non-medical: Not on file Tobacco Use Smoking status: Not on file Substance and Sexual Activity Alcohol use: Not on file Drug use: Not on file Sexual activity: Not on file Lifestyle Physical activity: Days per week: Not on file Minutes per session: Not on file Stress: Not on file Relationships Social connections: Talks on phone: Not on file Gets together: Not on file Attends scientologist service: Not on file Active member of club or organization: Not on file Attends meetings of clubs or organizations: Not on file Relationship status: Not on file Intimate partner violence: Fear of current or ex partner: Not on file Emotionally abused: Not on file Physically abused: Not on file Forced sexual activity: Not on file Other Topics Concerns: Not on file Social History Narrative Not on file SUBJECTIVE MSQ: 13 PROMIS: Global Score: 53% Mental Health Score: 13% 02/18/192018 Initial visit - Health Goals What Do You Hope To Achieve In Your Visit With Us? : I Would Like To Avoid Having To Go On Immunomodulator Meds For My Ulcerative Colitis. I Have Had Ulcerative Colitis For About 35 Years. It Was Well Controlled With Oral Balsalazide For About Fourteen Years, But Last Fall I Had A Flare-Up, Followed A Month Later By A C-Diff Infection, And I Have Not Been Able To Get Back Into Full Remission Since. My Metal Plater Is Recommending Azathioprine, But I Am Very Reluctant To Take A Med That Decreases My Natural Immunity. I Want To Find Out If It Can Be Controlled In A Healthier Manner. When Was The Last Time You [place] Well? : Last Time In Full Remission Was In February 2018 Did Something Trigger Your Change In Health? : Only Connection I Can Identify Is A Very Stressful Time At Work Starting Late January Last Year What Makes You Feel Better? : Weekends, Unstructured Time What Makes You Feel Worse? : Coordinating Work Team Activities, Leading Meetings, Workload Beyond What I Can Accomplish, Hectic Schedule With No Downtime To Rejuvenate How Does Your Condition Affect You? : If UC Is Too Active, Cannot Be Too Far From A Restroom; Feel Bloated Sometimes; Less Energy When Active What Do You Think Is Happening And Why? : Mild UC Flare-Up; Partially Stress-Related; Never Fully Recovered After C-Diff Infection Last Fall What Do You Feel Needs To Happen For You To Get Better? : Less Stress. Identify If There Is Any Infection Or Parasites Preventing Getting Back Into Remission. Ongoing Health Concerns : 2 1 - Current Problem Name :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 65-99 [facility] Internal Medicine Work Phone: Comment on above: PATIENT WAS FASTINGP ERFORMED BY: BN [facility] [address] [id number] BY: CB [facility] Mlsdyf5979 [facility] [id number] NMR Profile ([id number])Ordered B y: Refrigeration Insulator on 01-15-2019 Cholesterol [Mass/Vol] 208 mg/dL Abnormal 100-199 [facility] Work Phone: Comment on above: PATIENT WAS FASTINGP ERFORMED BY: Mail'Inside[address] [id number] BY: Preferred Systems Solutionslin6370 [facility] [id number] Cholesterol in HDL [Mass/Vol] 86 mg/dL Normal [facility] Work Phone: Comment on above: PATIENT WAS FASTINGP ERFORMED BY: Mail'Inside[address] [id number] BY: Prism Pharmaceuticalslin6370 [facility] [id number] Lipoprotein.alpha [Moles/Vol] 39.6 umol/L Normal [facility] Work Phone: Comment on above: PATIENT WAS FASTINGP ERFORMED BY: Mail'Inside[address] [id number] BY: TheSquareFoot70 [facility] [id number] Lipoprotein.beta.subp article [Entitic length] 21.7 nm Normal [facility] Work Phone: Comment on above: INTERPRETATIVE INFORMATION PARTICLE CONCENTRATION AND SIZE <--Lower CVD Risk Higher CVD Risk--> LDL AND HDL PARTICLES Percentile in Reference Population HDL-P (total) High 75th 50th 25th Low >34.9 34.9 30.5 26.7 <26.7 . Small LDL-P Low 25th 50th 75th High <117 117 527 839 >839 . LDL Size <-Large (Pattern A)-> <-Small (Pattern B)-> 23.0 20.6 20.5 19.0 Small LDL-P and LDL Size are associated with CVD risk, but not afterLDL-P is taken into account. .These assays were developed and their performance characteristicsdetermined by [employer]. These assays have not been cleared by [place] Food and Drug Administration. The clinical utility of theselaboratory values have not been fully established. PATIENT WAS FASTINGP ERFORMED BY: Wantr [address] [id number] BY: [employer]Foot70 [facility] [id number] Lipoprotein.beta.subp article [Moles/Vol] 875 nmol/L Normal Comprehensiv e Internal Medicine Work Phone: Comment on above: Low < 1000 Moderate 1000 - 1299 Borderline-High 1300 - 1599 High 1600 - 2000 Very High > 2000 PATIENT WAS FASTINGP ERFORMED BY: Want[employer] [address] [id number] BY: [employer]70 [facility] [id number] Lipoprotein.beta.subp article.small [Moles/Vol] <90 Normal [facility] Work Phone: Comment on above: PATIENT WAS FASTINGP ERFORMED BY: Wantr [address] [id number] BY: [employer]Foot70 DKT TechnologySentara Albem[facility] Center [id number] Triglyceride [Mass/Vol] 87 mg/dL Normal 0-149 [facility] Work Phone: Comment on above: PATIENT WAS FASTINGP ERFORMED BY: Wantr [address] [id number] BY: [employer] Hbveeo3170 [facility] [id number] NMR Profile ([id number]) 105 mg/dL Abnormal 0-99 [facility] Internal Medicine Work Phone: Comment on above: . Optimal < 100 Abov e optimal 100 - 129 Borderline 130 - 159 High 160 - 189 Very high > 189 .LDL-C is inaccurate if patient is non-fasting. PATIENT WAS FASTINGP ERFORMED BY: Mail'Inside[address] [id number] BY: TheSquareFoot[address] [facility] [id number] CALCIFIDIOL (68750) VIT D 25 Ordered By: Refrigeration Insulator on 07-29-2018 25-Hydroxyvitamin D2+25-Hydroxyvitamin D3 [Mass/Vol] 56.0 ng/mL Normal 30.0-100.0 [facility] Work Phone: Comment on above: Vitamin D deficiency has been defined by the [place] of[facility] Hospital[facility] and an Endocrine Society practice guideline as alevel of serum 25-OH vitamin D less than 20 ng/mL (1,2).The Endocrine Society went on to further define vitamin Dinsufficiency as a level between 21 and 29 ng/mL (2).1. IOM ([place] of Medicine). 2010. Dietary reference intakes for calcium and D. [place]: The National Academies Press.2. Krystal MF, Ashtyn GREENBERG, Cassandra FLEMING, et al. Evaluation, treatment, and prevention of vitamin D deficiency: an Endocrine Society clinical practice guideline. JCEM. 2010; 96(7):1911-30. PATIENT WAS FASTINGP ERFORMED BY: ChipRewards[address] [place] [address] [id number] BY: TheSquareFoot70 [facility] [id number] CBC W/AUTO DIFF WBC ([id number])O rdered By: Refrigeration Insulator on 07-29-2018 Basophils (Bld) [#/Vol] 0.0 {x10E3/uL} Normal 0.0-0.2 [facility] Work Phone: Comment on above: PATIENT WAS FASTINGP ERFORMED BY: Mail'Inside[address] [id number] BY: Prism Pharmaceuticalslin6370 [facility] [id number] Basophils (Bld) [#/Vol] 0.0 10*3/uL Normal 0.0-0.2 [facility]; [facility] Work Phone: Comment on above: PATIENT WAS FASTINGP ERFORMED BY: LabCo[address] [id number] BY: [facility] Frmfuz[address] [facility] Hospitalblin [place] [id number] Basophils/100 WBC (Bld) 1 % Normal [facility] Work Phone: Comment on above: PATIENT WAS FASTINGP ERFORMED BY: [facility] [address] [id number] BY: LabCo Mmwcgy2687 [address] RoadDuUNC Health Johnston [id number] Eosinophils (Bld) [#/Vol] 0.2 {x10E3/uL} Normal 0.0-0.4 [facility] Work Phone: Comment on above: PATIENT WAS FASTINGP ERFORMED BY: Lab[address] [id number] BY: LabCoAshley Ville [address] [facility] [id number] Eosinophils (Bld) [#/Vol] 0.2 10*3/uL Normal 0.0-0.4 [facility]; [facility] Work Phone: Comment on above: PATIENT WAS FASTINGP ERFORMED BY: Lab[address] [id number] BY: LabCoAshley Ville [address] [facility] [id number] Eosinophils/100 WBC (Bld) 4 % Normal [facility] Work Phone: Comment on above: PATIENT WAS FASTINGP ERFORMED BY: Lab[address] [id number] BY: LabCoAshley [place]ille [address] [facility] [id number] Erythrocyte distribution width (RBC) [Ratio] 13.7 % Normal 12.3-15.4 [facility] Work Phone: Comment on above: PATIENT WAS FASTINGP ERFORMED BY: [address] [id number] BY: [facility] HospitalCoBristol-Myers Squibb Children's HospitalQljjkn6812 [facility] [id number] Hematocrit (Bld) [Volume fraction] 43.2 % Normal 34.0-46.6 [facility] Work Phone: Comment on above: PATIENT WAS FASTINGP ERFORMED BY: [address] [id number] BY: [place] [address] [facility] [id number] Hemoglobin (Bld) [Mass/Vol] 14.0 g/dL Normal 11.1-15.9 [facility] Work Phone: Comment on above: PATIENT WAS FASTINGP ERFORMED BY: [address] [id number] BY: [place] [address] [facility] [id number] Immature granulocytes (Bld) [#/Vol] 0.0 {x10E3/uL} Normal 0.0-0.1 [facility] Work Phone: Comment on above: PATIENT WAS FASTINGP ERFORMED BY: [address] [id number] BY: [place] [address] [facility] [id number] Immature granulocytes (Bld) [#/Vol] 0.0 10*3/uL Normal 0.0-0.1 [facility]; [facility] Work Phone: Comment on above: PATIENT WAS FASTINGP ERFORMED BY: [address] [id number] BY: [place] [address] [facility] [id number] Immature granulocytes/100 WBC (Bld) 0 % Normal [facility] Work Phone: Comment on above: PATIENT WAS FASTINGP ERFORMED BY: BN [address] [id number] BY: LabMclaren [facility]umb Region[address] [facility] [id number] Lymphocytes (Bld) [#/Vol] 2.4 {x10E3/uL} Normal 0.7-3.1 [facility] Work Phone: Comment on above: PATIENT WAS FASTINGP ERFORMED BY: [address] [id number] BY: [place] [address] [facility] [id number] Lymphocytes (Bld) [#/Vol] 2.4 10*3/uL Normal 0.7-3.1 [facility]; [facility] Work Phone: Comment on above: PATIENT WAS FASTINGP ERFORMED BY: [address] [id number] BY: [place] [address] [facility] [id number] Lymphocytes/100 WBC (Bld) 38 % Normal [facility] Work Phone: Comment on above: PATIENT WAS FASTINGP ERFORMED BY: [address] [id number] BY: [place] [address] [facility] [id number] MCH (RBC) [Entitic mass] 31.4 pg Normal 26.6-33.0 [facility] Work Phone: Comment on above: PATIENT WAS FASTINGP ERFORMED BY: [address] [id number] BY: [facility]6370 [facility] [id number] MCHC (RBC) [Mass/Vol] 32.4 g/dL Normal 31.5-35.7 [facility] prehensive Internal Medicine Work Phone: Comment on above: PATIENT WAS FASTINGP ERFORMED BY: [address] [id number] BY: RUBEN [facility] Neuelu3600 [address] RoadDublin [place] [id number] MCV (RBC) [Entitic vol] 97 fL Normal 79-97 [facility] Work Phone: Comment on above: PATIENT WAS FASTINGP ERFORMED BY: [address] [id number] BY: RUBEN [facility] Ffwfeg9062 [address] RoadDublin [place] [id number] Monocytes (Bld) [#/Vol] 0.5 {x10E3/uL} Normal 0.1-0.9 [facility] Work Phone: Comment on above: PATIENT WAS FASTINGP ERFORMED BY: Lab[address] [id number] BY: RUBEN [facility] Evfgly6789 [address] RoadDublin [place] [id number] Monocytes (Bld) [#/Vol] 0.5 10*3/uL Normal 0.1-0.9 [facility]; [facility] Work Phone: Comment on above: PATIENT WAS FASTINGP ERFORMED BY: [address] [id number] BY: RUBEN LabResearch [facility] Kgvwzj3368 [address] RoadDublin [place] [id number] Monocytes/100 WBC (Bld) 8 % Normal [facility] Work Phone: Comment on above: PATIENT WAS FASTINGP ERFORMED BY: Lab[address] [id number] BY: [facility] Tbjzrz8177 [address] RoadDublin [place] [id number] Neutrophils (Bld) [#/Vol] 3.1 {x10E3/uL} Normal 1.4-7.0 [facility] Work Phone: Comment on above: PATIENT WAS FASTINGP ERFORMED BY: [address] [id number] BY: [facility] Rcapkx6650 [address] RoadDublin [place] [id number] Neutrophils (Bld) [#/Vol] 3.1 10*3/uL Normal 1.4-7.0 [facility]; [facility] Work Phone: Comment on above: PATIENT WAS FASTINGP ERFORMED BY: [facility] [address] [id number] BY: CB [facility] Evvqgw4560 [address] RoadDublin [place] [id number] Neutrophils/100 WBC (Bld) 49 % Normal [facility] Work Phone: Comment on above: PATIENT WAS FASTINGP ERFORMED BY: [facility] [address] [id number] BY: RUBEN [facility] Yrsbor3178 [address] RoadDublin [place] [id number] Platelets (Bld) [#/Vol] 327 {x10E3/uL} Normal 150-379 [facility] Work Phone: Comment on above: PATIENT WAS FASTINGP ERFORMED BY: [facility] [address] [id number] BY: [facility] Zebssw4859 [address] RoadDublin [place] [id number] Platelets (Bld) [#/Vol] 327 10*3/uL Normal 150-379 [facility]; [facility] Work Phone: Comment on above: PATIENT WAS FASTINGP ERFORMED BY: [facility] [address] [id number] BY: [facility] Lmcrxp0470 [address] RoadDublin [place] [id number] RBC (Bld) [#/Vol] 4.46 {x10E6/uL} Normal 3.77-5.28 [facility] Internal Medicine Work Phone: Comment on above: PATIENT WAS FASTINGP ERFORMED BY: LabCo[address] [id number] BY: LabCoBristol-Myers Squibb Children's HospitalZuctov2579 [facility] [id number] RBC (Bld) [#/Vol] 4.46 10*6/uL Normal 3.77-5.28 [facility] ehensive Internal Medicine; [facility] Work Phone: Comment on above: PATIENT WAS FASTINGP ERFORMED BY: Lab[address] [id number] BY: [facility] Xkdlyy0942 [facility] [id number] WBC (Bld) [#/Vol] 6.2 {x10E3/uL} Normal 3.4-10.8 [facility] Hospital[facility] Work Phone: Comment on above: PATIENT WAS FASTINGP ERFORMED BY: Lab[address] [id number] BY: LabMclaren Thumb Region6370 [facility] [id number] WBC (Bld) [#/Vol] 6.2 10*3/uL Normal 3.4-10.8 [facility] Internal Medicine; [facility] Work Phone: Comment on above: PATIENT WAS FASTINGP ERFORMED BY: Lab[address] [id number] BY: LabMclaren [facility]umb Region6370 [facility] [id number] LIPOPROTEIN, BLD, BY NMR ([id number] [id number])Ordered By: Refrigeration Insulator on 07-29-2018 Cholesterol [Mass/Vol] 202 mg/dL Abnormal 100-199 [facility] Work Phone: Comment on above: PATIENT WAS FASTINGP ERFORMED BY: Lab[address] [id number] BY: LabMclaren Thumb Region6370 [facility] [id number] Cholesterol in HDL [Mass/Vol] 77 mg/dL Normal [facility] Work Phone: Comment on above: PATIENT WAS FASTINGP ERFORMED BY: Lab[address] [id number] BY: [employer] Oilgru5352 [facility] [id number] Lipoprotein.alpha [Moles/Vol] 40.7 umol/L Normal [facility] Work Phone: Comment on above: PATIENT WAS FASTINGP ERFORMED BY: Mail'Inside[address] [id number] BY: [employer] Quurjg4714 [facility] [id number] Lipoprotein.beta.subp article [Entitic length] 21.4 nm Normal [facility] Work Phone: Comment on above: INTERPRETATIVE INFORMATION PARTICLE CONCENTRATION AND SIZE <--Lower CVD Risk Higher CVD Risk--> LDL AND HDL PARTICLES Percentile in Reference Population HDL-P (total) High 75th 50th 25th Low >34.9 34.9 30.5 26.7 <26.7 . Small LDL-P Low 25th 50th 75th High <117 117 527 839 >839 . LDL Size <-Large (Pattern A)-> <-Small (Pattern B)-> 23.0 20.6 20.5 19.0 Small LDL-P and LDL Size are associated with CVD risk, but not afterLDL-P is taken into account. .These assays were developed and their performance characteristicsdetermined by [employer]. These assays have not been cleared by [place] Food and Drug Administration. The clinical utility of theselaboratory values have not been fully established. PATIENT WAS FASTINGP ERFORMED BY: [employer] Qjvvrr[address] [id number] BY: [employer] On WheelsBristol-Myers Squibb Children's HospitalUtgqpg3834 [facility] [id number] Lipoprotein.beta.subp article [Moles/Vol] 925 nmol/L Normal Comprehensiv e Internal Medicine Work Phone: Comment on above: Low < 1000 Moderate 1000 - 1299 Borderline-High 1300 - 1599 High 1600 - 2000 Very High > 2000 PATIENT WAS FASTINGP ERFORMED BY: [employer] [id number] BY: Fe[employer] On WheelsBristol-Myers Squibb Children's HospitalQdzdrx8073 [facility] [id number] Lipoprotein.beta.subp article.small [Moles/Vol] 196 nmol/L Normal [facility] Work Phone: Comment on above: PATIENT WAS FASTINGP ERFORMED BY: [employer] [id number] BY: [facility] On WheelsBristol-Myers Squibb Children's HospitalZtpxmt7173 [facility] [id number] Triglyceride [Mass/Vol] 67 mg/dL Normal 0-149 [facility] Work Phone: Comment on above: PATIENT WAS FASTINGP ERFORMED BY: [employer] [id number] BY: Feas[facility] On WheelsBristol-Myers Squibb Children's HospitalAhzfsm8158 [facility] [id number] LIPOPROTEIN, BLD, BY NMR ([id number]) 112 mg/dL Abnormal 0-99 [facility] Work Phone: Comment on above: . Optimal < 100 Abov e optimal 100 - 129 Borderline 130 - 159 High 160 - 189 Very high > 189 .LDL-C is inaccurate if patient is non-fasting. PATIENT WAS FASTINGP ERFORMED BY: [employer] [id number] BY: Feasthouse On WheelsBristol-Myers Squibb Children's HospitalWdyrje1040 [facility] [id number] METABOLIC PANEL, COMPREHENSI VE (68791)Ordered By: Refrigeration Insulator on 07-29-2018 Albumin [Mass/Vol] 4.8 g/dL Normal 3.5-5.5 [facility] Internal Medicine Work Phone: Comment on above: PATIENT WAS FASTINGP ERFORMED BY: [facility] [address] [id number] BY: CB [facility] Wffsgw3345 [address] RoadDublin [place] [id number] Albumin/Globulin [Mass ratio] 1.8 {ratio} Normal 1.2-2.2 [facility] Work Phone: Comment on above: PATIENT WAS FASTINGP ERFORMED BY: [facility] [address] [id number] BY: CB [facility] Vovbyk8754 [address] RoadDublin [place] [id number] ALP [Catalytic activity/Vol] 79 [iU]/L Normal 39-117 [facility] Work Phone: Comment on above: PATIENT WAS FASTINGP ERFORMED BY: [facility] [address] [id number] BY: CB [facility] Isjfbr6818 [address] RoadDublin [place] [id number] ALP [Catalytic activity/Vol] 79 U/L Normal 39-117 [facility]; [facility] Work Phone: Comment on above: PATIENT WAS FASTINGP ERFORMED BY: [facility] [address] [id number] BY: CB [facility] Nmnrjq4622 [address] RoadDublin [place] [id number] ALT [Catalytic activity/Vol] 10 [iU]/L Normal 0-32 [facility] Work Phone: Comment on above: PATIENT WAS FASTINGP ERFORMED BY: [facility] [address] [id number] BY: CB [facility] Fjoumd1710 [address] RoadDublin [place] [id number] ALT [Catalytic activity/Vol] 10 U/L Normal 0-32 [facility]; [facility] Work Phone: Comment on above: PATIENT WAS FASTINGP ERFORMED BY: [facility] [address] [id number] BY: RUBEN [facility] Akowtd9523 [address] RoadDublin [place] [id number] AST [Catalytic activity/Vol] 14 [iU]/L Normal 0-40 [facility] Work Phone: Comment on above: PATIENT WAS FASTINGP ERFORMED BY: Lab[address] [id number] BY: RUBEN [facility] Nfwdjw7502 [address] RoadDublin [place] [id number] AST [Catalytic activity/Vol] 14 U/L Normal 0-40 [facility]; [facility] Work Phone: Comment on above: PATIENT WAS FASTINGP ERFORMED BY: Lab[address] [id number] BY: RUBEN [facility] Vbaofs2635 [address] RoadDublin [place] [id number] Bilirubin [Mass/Vol] 0.4 mg/dL Normal 0.0-1.2 Comp rehensive Internal Medicine Work Phone: Comment on above: PATIENT WAS FASTINGP ERFORMED BY: Lab[address] [id number] BY: RUBEN [facility] Glkxxr9349 Shukla RoadDublin [place] [id number] Calcium [Mass/Vol] 9.7 mg/dL Normal 8.7-10.2 [facility] Internal Medicine Work Phone: Comment on above: PATIENT WAS FASTINGP ERFORMED BY: [address] [id number] BY: [facility] Zhkzgt6967 Shukla RoadDublin [place] [id number] Chloride [Moles/Vol] 99 mmol/L Normal 96-106 [facility] Work Phone: Comment on above: PATIENT WAS FASTINGP ERFORMED BY: [address] [id number] BY: CB [facility] Gazjxh0437 Shukla RoadDublin [place] [id number] CO2 [Moles/Vol] 28 mmol/L Normal 20-29 [facility] Internal Medicine Work Phone: Comment on above: PATIENT WAS FASTINGP ERFORMED BY: BN [facility] Ccpovzykxb[address] [id number] BY: CB [facility] Sirhjn6552 [address] [facility] [place] [id number] Creatinine [Mass/Vol] 0.91 mg/dL Normal 0.57-1.00 [facility] Internal Medicine Work Phone: Comment on above: PATIENT WAS FASTINGP ERFORMED BY: BN [facility] Ovfyvxyaau[address] [id number] BY: RUBEN [facility] Wqmmnx[address] [facility] [id number] GFR/1.73 sq M predicted among blacks CKD-EPI (S/P/Bld) [Vol rate/Area] 85 mL/min/1.73 Normal [facility] Work Phone: Comment on above: PATIENT WAS FASTINGP ERFORMED BY: [facility] [address] [id number] BY: RUBEN [facility] Imvndd4174 [facility] [id number] GFR/1.73 sq M predicted among non-blacks CKD-EPI (S/P/Bld) [Vol rate/Area] 74 mL/min/1.73 Normal [facility] Work Phone: Comment on above: PATIENT WAS FASTINGP ERFORMED BY: BN [facility] [address] [id number] BY: RUBEN [facility] Zyosoj9611 [facility] [id number] Globulin (S) [Mass/Vol] 2.7 g/dL Normal 1.5-4.5 [facility] Internal Medicine Work Phone: Comment on above: PATIENT WAS FASTINGP ERFORMED BY: BN [facility] Vghkouytmz54[address] [id number] BY: RUBEN [facility] Dottcd5076 Shukla RoadDublin [place] [id number] Glucose [Mass/Vol] 96 mg/dL Normal 65-99 [facility] Internal Medicine Work Phone: Comment on above: PATIENT WAS FASTINGP ERFORMED BY: LabCo[address] [id number] BY: RUBEN [facility] Lfwetl2844 Sh[address]la RoadDublin [place] [id number] Potassium [Moles/Vol] 4.7 mmol/L Normal 3.5-5.2 [facility] Internal Medicine Work Phone: Comment on above: PATIENT WAS FASTINGP ERFORMED BY: LabCo[address] [id number] BY: RUBEN [facility] Krsoou7672 [address] RoadDublin [place] [id number] Protein [Mass/Vol] 7.5 g/dL Normal 6.0-8.5 [facility] Internal Medicine Work Phone: Comment on above: PATIENT WAS FASTINGP ERFORMED BY: [address] [id number] BY: RUBEN [facility] Bmyzhl2048 Sh[address] RoadDublin [place] [id number] Sodium [Moles/Vol] 139 mmol/L Normal 134-144 [facility] Internal Medicine Work Phone: Comment on above: PATIENT WAS FASTINGP ERFORMED BY: LabCo[address] [id number] BY: RUBEN [facility] Pgepws7847 [address] RoadDublin [place] [id number] Urea nitrogen [Mass/Vol] 19 mg/dL Normal 6-24 [facility] Internal Medicine Work Phone: Comment on above: PATIENT WAS FASTINGP ERFORMED BY: LabCo[address] [id number] BY: RUBEN [facility] Jguiad8926 [address] RoadDublin [place] [id number] Urea nitrogen/Creatinine [Mass ratio] 21 mg/mg Normal 9-23 [facility] Work Phone: Comment on above: PATIENT WAS FASTINGP ERFORMED BY: Thompson SCI[address] [id number] BY: RUBEN [facility] WheelsBristol-[facility] Squib[facility] Children's HospitalJglzkv0720 [facility] [id number] MICROALBUMINOrdered By: Syst em Business Sales Consultant on 07-29-2018 Albumin DL <= 20 mg/L (U) [Mass/Vol] 10.6 ug/mL Normal [facility] Work Phone: Comment on above: PATIENT WAS FASTINGP ERFORMED BY: Wantr [address] [id number] BY: RUBEN [facility] WheelsBristol-My[facility] Squib[facility] Children's HospitalVfjcyu5734 [facility] [id number] Albumin/Creatinine (U) [Mass ratio] 6.7 {mg/g_creat} Normal 0.0-30.0 [facility] Work Phone: Comment on above: Normal: 0.0 - 30.0 A lbuminuria: 31.0 - 300.0 Clinical albuminuria: >300.0 PATIENT WAS FASTINGP ERFORMED BY: Thompson SCI[address] [id number] BY: [facility] WheelsBristol-My[facility] Squibb Children's HospitalLweipr2203 [facility] [id number] Creatinine (U) [Mass/Vol] 157.4 mg/dL Normal [facility] Work Phone: Comment on above: PATIENT WAS FASTINGP ERFORMED BY: Thompson SCI[address] [id number] BY: [facility] [employer] [facility] Rrxixl5170 [facility] [id number] URINALYSIS, W/ MICRO ([id number]) Ordered By: Refrigeration Insulator on 07-29-2018 Appearance (U) Clear Normal Comprehens иван Internal Medicine Work Phone: Comment on above: PATIENT WAS FASTINGP ERFORMED BY: Thompson [address] [id number] BY: RUBEN [facility] Jxmcnu7209 [address] RoadDublin [place] [id number] Bilirubin Ql (U) Negative Normal Comprehe nsive Internal Medicine Work Phone: Comment on above: PATIENT WAS FASTINGP ERFORMED BY: [address] [id number] BY: RUBEN [facility] Fanjop2413 [address] RoadDublin [place] [id number] Bilirubin Ql (U) Negative Normal Comprehe nsive Internal Medicine; [facility] Work Phone: Comment on above: PATIENT WAS FASTINGP ERFORMED BY: [address] [id number] BY: RUBEN [facility] Ovjqmc9503 [address] RoadDublin [place] [id number] Color (U) Yellow Normal [facility] Work Phone: Comment on above: PATIENT WAS FASTINGP ERFORMED BY: [address] [id number] BY: RUBEN [facility] Effcdv2212 Sh[address] RoadDublin [place] [id number] Glucose Ql (U) Negative Normal Comprehens иван Internal Medicine Work Phone: Comment on above: PATIENT WAS FASTINGP ERFORMED BY: [address] [id number] BY: RUBEN [facility] Ljtmaa9695 [address] RoadDublin [place] [id number] Glucose Ql (U) Negative Normal Comprehens иван Internal Medicine; [facility] Work Phone: Comment on above: PATIENT WAS FASTINGP ERFORMED BY: [address] [id number] BY: RUBEN [facility] Gqmlzw3269 [address] RoadDublin [place] [id number] Hemoglobin Ql (U) Negative Normal Compreh ensive Internal Medicine Work Phone: Comment on above: PATIENT WAS FASTINGP ERFORMED BY: BN Lab[address] [id number] BY: [facility] Ourerw7181 [address] RoadDublin [place] [id number] Hemoglobin Ql (U) Negative Normal Compreh ensive Internal Medicine; [facility] Work Phone: Comment on above: PATIENT WAS FASTINGP ERFORMED BY: [address] [id number] BY: [facility] Irbrcl0827 [address] RoadDublin [place] [id number] Ketones Ql (U) Negative Normal Comprehens иван Internal Medicine Work Phone: Comment on above: PATIENT WAS FASTINGP ERFORMED BY: [address] [id number] BY: [facility] Zwargj6811 [address] RoadDublin [place] [id number] Ketones Ql (U) Negative Normal Comprehens иван Internal Medicine; [facility] Work Phone: Comment on above: PATIENT WAS FASTINGP ERFORMED BY: [address] [id number] BY: [facility] Dqzgck8523 [address] RoadDublin [place] [id number] Leukocyte esterase Test strip Ql (U) Negative Normal [facility] Work Phone: Comment on above: PATIENT WAS FASTINGP ERFORMED BY: [address] [id number] BY: [facility] Scdxus9804 [address] RoadDublin [place] [id number] Leukocyte esterase Test strip Ql (U) Negative Normal [facility]; [facility] Work Phone: Comment on above: PATIENT WAS FASTINGP ERFORMED BY: Lab[address] [id number] BY: CB [facility] Gxnwwr8350 [address] RoadDublin [place] [id number] Microscopic observation LM Nom (Urine sed) See below: Normal [facility] Work Phone: Comment on above: Microscopic was evita cated and was performed. PATIENT WAS FASTINGP ERFORMED BY: Lab[address] [id number] BY: RUBEN [facility] Lfdwrv0558 [address] RoadDublin [place] [id number] Microscopic observation LM Nom (Urine sed) MICRON Normal [facility] Work Phone: Comment on above: Microscopic follows if indicated. PATIENT WAS FASTINGP ERFORMED BY: Lab[address] [id number] BY: RUBEN [facility] Vmvguy1110 [address] RoadDublin [place] [id number] Nitrite Ql (U) Negative Normal Comprehens иван Internal Medicine Work Phone: Comment on above: PATIENT WAS FASTINGP ERFORMED BY: [address] [id number] BY: RUBEN [facility] Cdxsjx8048 [address] RoadDublin [place] [id number] Nitrite Ql (U) Negative Normal Comprehens иван Internal Medicine; [facility] Work Phone: Comment on above: PATIENT WAS FASTINGP ERFORMED BY: Lab[address] [id number] BY: RUBEN [facility] Lcxxaw9865 [address] RoadDublin [place] [id number] pH (U) 6.5 [pH] Normal 5.0-7.5 [facility] Work Phone: Comment on above: PATIENT WAS FASTINGP ERFORMED BY: Lab[address] [id number] BY: RUBEN [facility] Ggcnex2416 [address] RoadDublin [place] [id number] Protein Ql (U) Negative Normal Comprehens иван Internal Medicine Work Phone: Comment on above: PATIENT WAS FASTINGP ERFORMED BY: Lab[address] [id number] BY: CB [facility] Bnaogi[address] [facility] [id number] Protein Ql (U) Negative Normal Comprehens иван Internal Medicine; [facility] Work Phone: Comment on above: PATIENT WAS FASTINGP ERFORMED BY: [address] [id number] BY: [facility]6370 [facility] [id number] Specific gravity (U) [Rel density] 1.023 1 Normal 1.005-1.030 [facility] Work Phone: Comment on above: PATIENT WAS FASTINGP ERFORMED BY: [facility] [id number] BY: [place] 2507270 [facility] [id number] Urobilinogen (U) [Mass/Vol] 0.2 mg/dL Normal 0.2-1.0 [facility]; [facility] Work Phone: Comment on above: PATIENT WAS FASTINGP ERFORMED BY: [facility] [id number] BY: ImmunoGenJanice Ville 4723670 [facility] [id number] Urobilinogen Test strip (U) [Mass/Vol] 0.2 mg/dL Normal 0.2-1.0 Comprehensi Internal Medicine Work Phone: Comment on above: PATIENT WAS FASTINGP ERFORMED BY: [facility] [id number] BY: [facility]6370 [facility] [id number] CDIFF (Molecular)Ordered By: Refrigeration Insulator on 05-26-2018 C. difficile DNA TERI+probe Ql (Unsp spec) See Note Normal [facility] Work Phone: Comment on above: Cdiff-MolecularNorma l Reference Range = Negative RESULTS CALLED TO KOSTAS/ 05/27/18 0951 Margareth Savage. Copy of report sent to Infection Control Printer [id number] 05/27/18 0951 DCAGISELLELIBERTY. C. Diff DNA Positive-Toxigenic C. Difficile DNA DetectedNAAT METHOD Testing was performed using nucleic acid amplification ORGANISM 1: Toxigenic C. difficile DNA Miscellaneous Lab ProcedureO rdered By: Refrigeration Insulator on 05-18-2018 [facility] TEST Normal Comprehensi ve Internal Medicine Work Phone: Comment on above: TEST RESULT UNITS RE F INTERVALQFT-TB Plus (Client Incubated)QuantiFERON Criteria The QuantiFERON-TB Gold Plus result is determined bysubtracting the Nil value from either TB antigen (Ag) tube.The mitogen tube serves as a control for the test.QuantiFERON TB1 Ag Value 0.03 IU/mLQuantiFERON TB2 Ag Value 0.03 IU/mLQuantiFERON Nil Value 0.03 IU/mLQuantiFERON Mitogen Value >10.00 IU/mLQuantiFERON-TB Gold Plus Negative NegativeThe specimen received for QuantiFERON testing was incubatedby the ordering institution. Specific procedures outlined inour Directory of Services and in the package insert for theQuantiFERON Gold (In Tube) test must be followed to enablefor proper stimulation of cells for the production ofinterferon gamma. [facility]. ORIGINAL REPORT ON FILE IN LAB CONTAINS ADDITIONAL TEST SITE INFORMATION. CBC-Complete Blood Cnt No Di ffOrdered By: Refrigeration Insulator on 12-17-2017 Erythrocyte distribution width Auto Ratio (RBC) 13.1 % Normal 11.6-14.6 [facility] Work Phone: Hematocrit Auto Volume Fraction (Bld) 42.0 % Normal 37-47 Comprehens иван Internal Medicine Work Phone: Hemoglobin mass conc (Bld) 13.5 g/dL Normal 12.0-15.0 [facility] Internal Medicine Work Phone: MCH Auto Entitic mass (RBC) 31.5 pg Normal 27.0-32.0 [facility] Internal Medicine Work Phone: MCHC Auto mass conc (RBC) 32.1 {g/gl} Normal 32-36 [facility] Internal Medicine Work Phone: MCV Auto Entitic volume (RBC) 97.9 fL Normal 81-99 [facility] Internal Medicine Work Phone: Platelet mean volume Auto Entitic volume (Bld) 10.8 fL Normal 6.2-12.0 [facility] Internal Medicine Work Phone: Platelets Auto #/vol (Bld) 275 10*3/uL Normal 150-450 [facility] Internal Medicine Work Phone: RBC Auto #/vol (Bld) 4.29 {M/mm3} Normal 4.2-5.4 [facility] Internal Medicine Work Phone: RDW SD 46.6 fL Abnormal 35.1-43.9 [facility] Internal Medicine Work Phone: WBC Auto #/vol (Bld) 5.7 10*3/uL Normal 4.4-11.0 [facility] Internal Medicine Work Phone: Comprehensive Metabolic Prof ilOrdered By: Refrigeration Insulator on 12-17-2017 Comprehensive metabolic 2000 panel 21.0 {RATIO} Abnormal 10-20 Comprehensi ve Internal Medicine Work Phone: Comprehensive metabolic 2000 panel 8.2 g/dL Normal 6.4-8.2 Comprehensi ve Internal Medicine Work Phone: Comprehensive metabolic 2000 panel 32.0 mmol/L Normal 21.0-32.0 Comprehensi ve Internal Medicine Work Phone: Comprehensive metabolic 2000 panel 8 1 Normal 5-15 Comprehensi ve Internal Medicine Work Phone: Comprehensive metabolic 2000 panel 78 mg/dL Normal 74-106 Comprehensi ve Internal Medicine Work Phone: Comment on above: Please note revised GLUCOSE reference range unmzjehwr61/02/2018. Comprehensive metabolic 2000 panel 17 mg/dL Normal 7-18 Comprehensi ve Internal Medicine Work Phone: Comprehensive metabolic 2000 panel 0.81 mg/dL Normal 0.55-1.02 Comprehensi ve Internal Medicine Work Phone: Comment on above: The validity of the calculated GFR AND GFRAA in patients over70 years has not been determined. Clinical correlation isessential. Comprehensive metabolic 2000 panel 4.3 g/dL Normal 3.2-5.0 Comprehensi ve Internal Medicine Work Phone: Comprehensive metabolic 2000 panel 3.9 g/dL Normal 2.2-4.2 Comprehensi ve Internal Medicine Work Phone: Comprehensive metabolic 2000 panel 102 mmol/L Normal 98-107 Comprehensi ve Internal Medicine Work Phone: Comprehensive metabolic 2000 panel 1.1 {RATIO} Normal 0.9-2.4 Comprehensi ve Internal Medicine Work Phone: Comprehensive metabolic 2000 panel 9.3 mg/dL Normal 8.5-10.1 Comprehensi ve Internal Medicine Work Phone: Comprehensive metabolic 2000 panel 26 U/L Normal 15-37 Comprehensi ve Internal Medicine Work Phone: Comprehensive metabolic 2000 panel 57 U/L Normal 45-117 Comprehensi ve Internal Medicine Work Phone: Comprehensive metabolic 2000 panel 25 U/L Normal 13-56 Comprehensi ve Internal Medicine Work Phone: Comprehensive metabolic 2000 panel 0.50 mg/dL Normal 0.20-1.00 Comprehensi ve Internal Medicine Work Phone: Comprehensive metabolic 2000 panel 80 mL/min Normal Comprehensi ve Internal Medicine Work Phone: Comprehensive metabolic 2000 panel 3.7 mmol/L Normal 3.5-5.1 Comprehensi ve Internal Medicine Work Phone: Comprehensive metabolic 2000 panel 97 mL/min Normal Comprehensi ve Internal Medicine Work Phone: Comprehensive metabolic 2000 panel 142 mmol/L Normal 136-145 Comprehensi ve Internal Medicine Work Phone: Lipid ProfileOrdered By: Mckay tem Business Sales Consultant on 12-17-2017 Cholesterol in HDL mass conc 90 mg/dL Normal [facility] Work Phone: Comment on above: The drugs N-Acetylcy steine and Metamizole may falselydepress this assay. Reference Range HDL <40 mg/dL Low HDL Cholesterol HDL >or= 60 mg/dL High HDL Cholesterol Cholesterol in LDL mass conc 99 mg/dL Normal 0-130 [facility] Work Phone: Cholesterol in VLDL mass conc 16 mg/dL Normal 5-40 [facility] Work Phone: Cholesterol mass conc 205 mg/dL Abnormal Com prehensive Internal Medicine Work Phone: Comment on above: <200 mg/dL Desirable 200-240 mg/dL Borderline >240 mg/dL High Risk Triglyceride mass conc 81 mg/dL Normal [facility] Work Phone: Comment on above: The drugs N-Acetylcy steine and Metamizole may falselydepress this assay.Serum Triglycerides Reference Interval Normal <150 mg/dL Borderline high 150 - 199 mg/dL High 200 - 499 mg/dL Very High > or = 500 mg/dL MicroalbOrdered By: Racheal clark on 12-17-2017 Creatinine mass conc 6.0 {mg/g_CRE} Normal [facility] Work Phone: MICROALBUMIN,UR 13.0 mg/L Normal Comprehen sive Internal Medicine Work Phone: UR CREAT 190.00 mg/dL Normal Comprehensiv e Internal Medicine Work Phone: Thyroid Stim Hormone (TSH)Or dered By: Refrigeration Insulator on 12-17-2017 Thyrotropin Qn 2.18 {uIU/mL} Normal 0.358-3.74 Compreh ensive Internal Medicine Work Phone: Urinalysis, CompleteOrdered By: Refrigeration Insulator on 12-17-2017 RBC Test strip #/vol (U) 0 SEEN Normal 0-5 [facility] Work Phone: Urinalysis complete panel - Urine RARE Normal [facility] Work Phone: Urinalysis complete panel - Urine 10 /ul Abnormal [facility] Work Phone: Urinalysis complete panel - Urine Negative Normal [facility] Work Phone: Urinalysis complete panel - Urine 7.0 1 Normal 5.0 - 8.0 [facility] Work Phone: Urinalysis complete panel - Urine 1.010 1 Normal 1.002-1.030 [facility] Work Phone: Urinalysis complete panel - Urine 0-5 SEEN Normal 0-5 [facility] Work Phone: Urinalysis complete panel - Urine 1 mg/dL Abnormal [facility] Work Phone: Comment on above: COLOR OF URINE MAY A FFECT DIPSTICK RESULTS. Urinalysis complete panel - Urine Clear Normal [facility] Work Phone: Urinalysis complete panel - Urine Yellow Normal [facility] Work Phone: Urinalysis complete panel - Urine Normal Normal [facility] Work Phone: Urinalysis complete panel - Urine 0 SEEN Normal [facility] Work Phone: Urinalysis complete panel - Urine 500 /ul Abnormal [facility] Work Phone: Vitamin D,25 HydroxyOrdered By: Refrigeration Insulator on 12-17-2017 Vitamin D 25-OH 44.5 ng/mL Normal 29.95-100.01 Compreh ensive Internal Medicine Work Phone: Comment on above: Vitamin D 25(OH) Sta tus Range Deficiency <20 ng/mL (50nmol/L) Insuffciency 20 - 30 ng/mL (50 - 75 nmol/L) Sufficiency 30 - 100 ng/mL (75 - 250 nmol/L) Toxicity >100 ng/mL (>250 nmol/L)RESULT(S) PREVIOUSLY REPORTED ON MANUAL REQUISITION DURINGDOWNTIME. Office Visit: abnormal korin cunhaliberty 06-03-2017 Documentation of current medications (procedure) Done Invalid Interpretation Code [facility] Work Phone: Fall risk assessment No Invalid Interpretation Code [facility] Work Phone: Tobacco smoking status NHIS Never Invalid Interpretation Code [facility] Work Phone: Tobacco use HS Never smoker Invalid Interpretation Code [facility] Work Phone: PAP I-G w/rfx hrHPVOrdered B y: Refrigeration Insulator on 05-28-2017 COMM . Normal [facility] Work Phone: PAPSMR Comment Normal [facility] Work Phone: Comment on above: The Pap smear is a s creening test designed to aid in thedetection of premalignant and malignant conditions of theuterine cervix. It is not a diagnostic procedure andshould not be used as the sole means of detecting cervicalcancer. Both false-positive and false-negative reports dooccur. Satisfactory for josé luation. No endocervical component is identified. The HPV DNA reflex c riteria were not met with this specimenresult therefore, no HPV testing was performed.Performed at: [address] [id number] Director: Bess Cross MD, Phone: [phone] NEGATIVE FOR INTRAEP ITHELIAL LESION AND MALIGNANCY. This liquid based Th inPrep(R) pap test was screened withthe use of an image guided system. Gino Tenorio, [employer] hnologist (ASCP) CALCIFEDIOL (45101)Ordered B y: Refrigeration Insulator on 05-09-2017 25-Hydroxyvitamin D2+25-Hydroxyvitamin D3 mass conc 72.8 ng/mL Normal 30.0-100.0 [facility] Work Phone: Comment on above: Vitamin D deficiency has been defined by the [place] of[place]icine and an Endocrine Society practice guideline as alevel of serum 25-OH vitamin D less than 20 ng/mL (1,2).The Endocrine Society went on to further define vitamin Dinsufficiency as a level between 21 and 29 ng/mL (2).1. IOM ([place] of Medicine). 2010. Dietary reference intakes for calcium and D. [place]: The National Academies Press.2. Krystal MF, Ashtyn NC, Cassandra FLEMING, et al. Evaluation, treatment, and prevention of vitamin D deficiency: an Endocrine Society clinical practice guideline. JCEM. 2011 Re[place]do; 96(7):1911-30. PATIENT WAS FASTINGP ERFORMED BY: LabCoBristol-Myers Squibb Children's HospitalVjsjhp3028 [facility] [id number] CBC W/AUTO DIFF WBC (27302)O rdered By: Refrigeration Insulator on 05-09-2017 Basophils (Bld) [#/Vol] 0.0 {x10E3/uL} Normal 0.0-0.2 [facility] Work Phone: Comment on above: PATIENT WAS FASTINGP ERFORMED BY: [facility]6370 [facility] [id number] Basophils (Bld) [#/Vol] 0.0 10*3/uL Normal 0.0-0.2 [facility]; [facility] Work Phone: Comment on above: PATIENT WAS FASTINGP ERFORMED BY: [address] [id number] Basophils Auto #/vol (Bld) 0.0 {x10E3/uL} Normal 0.0-0.2 [facility] Work Phone: Basophils/100 WBC (Bld) 0 % Normal [facility] Work Phone: Comment on above: PATIENT WAS FASTINGP ERFORMED BY: [place] [id number] [facility] [id number] Basophils/100 WBC Auto (Bld) 0 % Normal [facility] Work Phone: Eosinophils (Bld) [#/Vol] 0.2 {x10E3/uL} Normal 0.0-0.4 [facility] Work Phone: Comment on above: PATIENT WAS FASTINGP ERFORMED BY: LabM[facility]6370 [facility] [id number] Eosinophils (Bld) [#/Vol] 0.2 10*3/uL Normal 0.0-0.4 Comprehensive Internal Medicine; [facility] Work Phone: Comment on above: PATIENT WAS FASTINGP ERFORMED BY: LabJanice Ville [id number] [facility] [id number] Eosinophils Auto #/vol (Bld) 0.2 {x10E3/uL} Normal 0.0-0.4 [facility] Work Phone: Eosinophils/100 WBC (Bld) 3 % Normal [facility] Work Phone: Comment on above: PATIENT WAS FASTINGP ERFORMED BY: [place]in [place] [id number] [facility] [id number] Eosinophils/100 WBC Auto (Bld) 3 % Normal [facility] Work Phone: Erythrocyte distribution width (RBC) [Ratio] 13.1 % Normal 12.3-15.4 [facility] Work Phone: Comment on above: PATIENT WAS FASTINGP ERFORMED BY: [place] [id number] [facility] [id number] Erythrocyte distribution width Auto Ratio (RBC) 13.1 % Normal 12.3-15.4 [facility] Work Phone: Hematocrit (Bld) [Volume fraction] 40.7 % Normal 34.0-46.6 [facility] Work Phone: Comment on above: PATIENT WAS FASTINGP ERFORMED BY: [place] [id number] [facility] [id number] Hematocrit Auto Volume Fraction (Bld) 40.7 % Normal 34.0-46.6 [facility] Internal Medicine Work Phone: Hemoglobin mass conc (Bld) 13.1 g/dL Normal 11.1-15.9 [facility] Work Phone: Comment on above: PATIENT WAS FASTINGP ERFORMED BY: [place] [id number] [facility] [id number] Immature granulocytes #/vol (Bld) 0.0 {x10E3/uL} Normal 0.0-0.1 [facility] Work Phone: Comment on above: PATIENT WAS FASTINGP ERFORMED BY: [place] [id number] [facility] [id number] Immature granulocytes (Bld) [#/Vol] 0.0 10*3/uL Normal 0.0-0.1 [facility]; [facility] Work Phone: Comment on above: PATIENT WAS FASTINGP ERFORMED BY: [facility] Xalqjw1083 [facility] [id number] Immature granulocytes/100 WBC (Bld) 0 % Normal [facility] Work Phone: Comment on above: PATIENT WAS FASTINGP ERFORMED BY: [place] [id number] [facility] [id number] Lymphocytes (Bld) [#/Vol] 2.0 {x10E3/uL} Normal 0.7-3.1 [facility] Work Phone: Comment on above: PATIENT WAS FASTINGP ERFORMED BY: [address] [id number] Lymphocytes (Bld) [#/Vol] 2.0 10*3/uL Normal 0.7-3.1 [facility]; [facility] Work Phone: Comment on above: PATIENT WAS FASTINGP ERFORMED BY: [place] [id number] [facility] [id number] Lymphocytes Auto #/vol (Bld) 2.0 {x10E3/uL} Normal 0.7-3.1 [facility] Work Phone: Lymphocytes/100 WBC (Bld) 33 % Normal [facility] Work Phone: Comment on above: PATIENT WAS FASTINGP ERFORMED BY: [place] [id number] [facility] [id number] Lymphocytes/100 WBC Auto (Bld) 33 % Normal [facility] Work Phone: MCH (RBC) [Entitic mass] 30.9 pg Normal 26.6-33.0 [facility] Work Phone: Comment on above: PATIENT WAS FASTINGP ERFORMED BY: [place] [id number] [facility] [id number] MCH Auto Entitic mass (RBC) 30.9 pg Normal 26.6-33.0 [facility] Work Phone: MCHC (RBC) [Mass/Vol] 32.2 g/dL Normal 31.5-35.7 [facility] Internal Medicine Work Phone: Comment on above: PATIENT WAS FASTINGP ERFORMED BY: RUBEN [facility] [id number] [facility] [id number] MCHC Auto mass conc (RBC) 32.2 g/dL Normal 31.5-35.7 [facility] Internal Medicine Work Phone: MCV (RBC) [Entitic vol] 96 fL Normal 79-97 [facility] Work Phone: Comment on above: PATIENT WAS FASTINGP ERFORMED BY: RUBEN [facility] Rztdqx2491 [facility] [id number] MCV Auto Entitic volume (RBC) 96 fL Normal 79-97 [facility] Internal Medicine Work Phone: Monocytes (Bld) [#/Vol] 0.5 {x10E3/uL} Normal 0.1-0.9 [facility] Internal Medicine Work Phone: Comment on above: PATIENT WAS FASTINGP ERFORMED BY: RUBEN LabM[facility]6370 [facility] [id number] Monocytes (Bld) [#/Vol] 0.5 10*3/uL Normal 0.1-0.9 [facility]; [facility] Work Phone: Comment on above: PATIENT WAS FASTINGP ERFORMED BY: LabMcl[facility]6370 [facility] [id number] Monocytes Auto #/vol (Bld) 0.5 {x10E3/uL} Normal 0.1-0.9 [facility] Work Phone: Monocytes/100 WBC (Bld) 9 % Normal [facility] Work Phone: Comment on above: PATIENT WAS FASTINGP ERFORMED BY: LabMcl[facility]6370 [facility] [id number] Monocytes/100 WBC Auto (Bld) 9 % Normal [facility] Work Phone: Neutrophils (Bld) [#/Vol] 3.4 {x10E3/uL} Normal 1.4-7.0 [facility] Work Phone: Comment on above: PATIENT WAS FASTINGP ERFORMED BY: LabCo Mcyorf3995 [address] RoadDublin [place] [id number] Neutrophils (Bld) [#/Vol] 3.4 10*3/uL Normal 1.4-7.0 [facility]; [facility] Work Phone: Comment on above: PATIENT WAS FASTINGP ERFORMED BY: LabMcl[facility] Region6[address] Roadblin [place] [id number] Neutrophils Auto #/vol (Bld) 3.4 {x10E3/uL} Normal 1.4-7.0 [facility] Work Phone: Neutrophils/100 WBC (Bld) 55 % Normal [facility] Work Phone: Comment on above: PATIENT WAS FASTINGP ERFORMED BY: LabMcl[facility] [facility] [place] [id number] Neutrophils/100 WBC Auto (Bld) 55 % Normal [facility] Work Phone: Platelets (Bld) [#/Vol] 307 {x10E3/uL} Normal 150-379 [facility] Work Phone: Comment on above: PATIENT WAS FASTINGP ERFORMED BY: LabMcl[facility] Region[address] [facility] [place] [id number] Platelets (Bld) [#/Vol] 307 10*3/uL Normal 150-379 [facility]; [facility] Work Phone: Comment on above: PATIENT WAS FASTINGP ERFORMED BY: LabCo Ojvvtp[address]86 [address] [facility] [place] [id number] Platelets Auto #/vol (Bld) 307 {x10E3/uL} Normal 150-379 [facility] Work Phone: RBC (Bld) [#/Vol] 4.24 {x10E6/uL} Normal 3.77-5.28 [facility] Internal Medicine Work Phone: Comment on above: PATIENT WAS FASTINGP ERFORMED BY: RUBEN Lorriehiro Izwfwr1437 [facility] [id number] RBC (Bld) [#/Vol] 4.24 10*6/uL Normal 3.77-5.28 [facility] Internal Medicine; [facility] Work Phone: Comment on above: PATIENT WAS FASTINGP ERFORMED BY: RUBEN Lorrie Ypphci6585 [facility] [id number] RBC Auto #/vol (Bld) 4.24 {x10E6/uL} Normal 3.77-5.28 [facility] Work Phone: WBC (Bld) [#/Vol] 6.0 {x10E3/uL} Normal 3.4-10.8 [facility] Internal Medicine Work Phone: Comment on above: PATIENT WAS FASTINGP ERFORMED BY: RUBEN MelodyParker [id number] [facility] [id number] WBC (Bld) [#/Vol] 6.0 10*3/uL Normal 3.4-10.8 [facility] Internal Medicine; [facility] Work Phone: Comment on above: PATIENT WAS FASTINGP ERFORMED BY: RUBEN Lorriehiro Dbstfs7553 [facility] [id number] WBC Auto #/vol (Bld) 6.0 {x10E3/uL} Normal 3.4-10.8 [facility] Work Phone: LIPID PANEL ([id number])Ordered B y: Refrigeration Insulator on 05-09-2017 Cholesterol in HDL mass conc 66 mg/dL Normal [facility] Work Phone: Comment on above: PATIENT WAS FASTINGP ERFORMED BY: RUBEN Angy Trevinolin6370 [facility] [id number] Cholesterol in LDL mass conc 87 mg/dL Normal 0-99 [facility] Work Phone: Comment on above: PATIENT WAS FASTINGP ERFORMED BY: RUBEN LabMananBristol-Myers Squibb Children's HospitalGxabsg1976 [facility] [id number] Cholesterol in LDL/Cholesterol in HDL mass ratio 1.3 {ratio_units} Normal 0.0-3.2 [facility] Work Phone: Comment on above: LDL/HDL Ratio Men Wo men 1/2 Avg.Risk 1.0 1.5 Avg.Risk 3.6 3.2 2X Avg.Risk 6.2 5.0 3X Avg.Risk 8.0 6.1 PATIENT WAS FASTINGP ERFORMED BY: RUBEN LabCo [id number] [facility] [id number] Cholesterol in VLDL mass conc 15 mg/dL Normal 5-40 [facility] Work Phone: Comment on above: PATIENT WAS FASTINGP ERFORMED BY: RUBEN Lorrie Fqhphc9685 [facility] [id number] Cholesterol mass conc 168 mg/dL Normal 100-199 [facility] prehensive Internal Medicine Work Phone: Comment on above: PATIENT WAS FASTINGP ERFORMED BY: RUBEN LabManan Epgsli4535 [facility] [id number] Triglyceride mass conc 73 mg/dL Normal 0-149 [facility] Work Phone: Comment on above: PATIENT WAS FASTINGP ERFORMED BY: RUBEN Lorrie [id number] [facility] [id number] METABOLIC PANEL, COMPREHENSI VE ([id number])Ordered By: Refrigeration Insulator on 05-09-2017 Albumin mass conc 4.6 g/dL Normal 3.5-5.5 Compreh ensive Internal Medicine Work Phone: Comment on above: PATIENT WAS FASTINGP ERFORMED BY: [facility] [id number] [facility] [id number] Albumin/Globulin mass ratio 1.8 {ratio} Normal 1.2-2.2 [facility] Work Phone: Comment on above: PATIENT WAS FASTINGP ERFORMED BY: RUBEN [facility]Research [facility] [id number] [facility] [id number] ALP [Catalytic activity/Vol] 50 U/L Normal 39-117 [facility]; [facility] Work Phone: Comment on above: PATIENT WAS FASTINGP ERFORMED BY: RUBEN Amaro[address] RoadDublin [place] [id number] ALP enzyme act/vol 50 [iU]/L Normal 39-117 [facility] Internal Medicine Work Phone: Comment on above: PATIENT WAS FASTINGP ERFORMED BY: RUBEN Amaro[address] RoadDublin [place] [id number] ALT [Catalytic activity/Vol] 9 U/L Normal 0-32 [facility]; [facility] Internal Medicine Work Phone: Comment on above: PATIENT WAS FASTINGP ERFORMED BY: RUBEN Amaro[address]Dublin [place] [id number] ALT enzyme act/vol 9 [iU]/L Normal 0-32 [facility] Internal Medicine Work Phone: Comment on above: PATIENT WAS FASTINGP ERFORMED BY: RUBEN Amaro[address]ublin [place] [id number] AST [Catalytic activity/Vol] 17 U/L Normal 0-40 [facility] Internal Medicine; [facility] Internal Medicine Work Phone: Comment on above: PATIENT WAS FASTINGP ERFORMED BY: RUBEN Amaro[address]Dublin [place] [id number] AST enzyme act/vol 17 [iU]/L Normal 0-40 [facility] Internal Medicine Work Phone: Comment on above: PATIENT WAS FASTINGP ERFORMED BY: RUBEN Trevinolin[address] [facility] HospitalDublin [place] [id number] Bilirubin mass conc 0.4 mg/dL Normal 0.0-1.2 [facility] Internal Medicine Work Phone: Comment on above: PATIENT WAS FASTINGP ERFORMED BY: RUBEN Trevinolin[address]ublin [place] [id number] Calcium mass conc 9.7 mg/dL Normal 8.7-10.2 [facility] Internal Medicine Work Phone: Comment on above: PATIENT WAS FASTINGP ERFORMED BY: CB LabMclaren Thumb Region[address] [facility]in [place] [id number] Chloride molar conc 95 mmol/L Abnormal 96-106 Compr ensive Internal Medicine Work Phone: Comment on above: PATIENT WAS FASTINGP ERFORMED BY: [facility]Research [facility] Rjcmho9986 [address] [facility]in [place] [id number] CO2 molar conc 27 mmol/L Normal 18-29 Comprehens иван Internal Medicine Work Phone: Comment on above: PATIENT WAS FASTINGP ERFORMED BY: [facility]Research [facility] Uulrez7561 [facility] [id number] Creatinine mass conc 0.78 mg/dL Normal 0.57-1.00 [facility] Work Phone: Comment on above: PATIENT WAS FASTINGP ERFORMED BY: [facility] Nymflj1921 [facility] [id number] GFR/1.73 sq M predicted among blacks CKD-EPI vol rate/area (S/P/Bld) 104 mL/min/1.73 Normal Comprehensiv e Internal Medicine Work Phone: Comment on above: PATIENT WAS FASTINGP ERFORMED BY: LabMcl[facility] Region6370 [facility] [id number] GFR/1.73 sq M predicted among non-blacks CKD-EPI vol rate/area (S/P/Bld) 90 mL/min/1.73 Normal [facility] Work Phone: Comment on above: PATIENT WAS FASTINGP ERFORMED BY: LabMcl[facility]6370 [facility] [id number] Globulin (S) [Mass/Vol] 2.5 g/dL Normal 1.5-4.5 [facility] Work Phone: Comment on above: PATIENT WAS FASTINGP ERFORMED BY: [facility]Research [facility] [id number] [facility] [id number] Globulin Calculated mass conc (S) 2.5 g/dL Normal 1.5-4.5 [facility] Work Phone: Glucose mass conc 79 mg/dL Normal 65-99 Compreh ensive Internal Medicine Work Phone: Comment on above: PATIENT WAS FASTINGP ERFORMED BY: RUBEN MelodyParker TrevinoRttunl2972 [facility] [id number] Potassium molar conc 4.6 mmol/L Normal 3.5-5.2 Comp rehensive Internal Medicine Work Phone: Comment on above: PATIENT WAS FASTINGP ERFORMED BY: RUBEN MelodyParker TrevinoVbvopd2144 [facility] [id number] Protein mass conc 7.1 g/dL Normal 6.0-8.5 Compreh ensive Internal Medicine Work Phone: Comment on above: PATIENT WAS FASTINGP ERFORMED BY: RUBEN Trevinolin6370 [facility] [id number] Sodium molar conc 137 mmol/L Normal 134-144 Compreh ensive Internal Medicine Work Phone: Comment on above: PATIENT WAS FASTINGP ERFORMED BY: RUBEN Amaro6370 [facility] [id number] Urea nitrogen mass conc 17 mg/dL Normal 6-24 [facility] Work Phone: Comment on above: PATIENT WAS FASTINGP ERFORMED BY: RUBEN Trevinolin6370 [facility] [id number] Urea nitrogen/Creatinine mass ratio 22 mg/mg Normal 9-23 [facility] Work Phone: Comment on above: PATIENT WAS FASTINGP ERFORMED BY: RUBEN Trevinolin6370 [facility] [id number] MICROALBUMINOrdered By: Syst em Business Sales Consultant on 05-09-2017 Albumin DL <= 20 mg/L (U) [Mass/Vol] mg/dL Normal [facility]; [facility] Work Phone: Comment on above: PATIENT WAS FASTINGP ERFORMED BY: RUBEN Trevinolin6370 [facility] [id number] Albumin DL <= 20 mg/L mass conc (U) mg/dL Normal [facility] Work Phone: Comment on above: PATIENT WAS FASTINGP ERFORMED BY: [employer] Gdwqwh4449 [facility] [id number] Albumin/Creatinine mass ratio (U) MALD Abnormal 0.0-30.0 [facility] Work Phone: Comment on above: This result is below the assay's limit of quantitation indicating adilute specimen, potentially due to diurnal variation. Considerrecollection at a time likely to provide a more concentrated urine. PATIENT WAS FASTINGP ERFORMED BY: [employer] Rtfdsj2059 [facility] [id number] Creatinine mass conc (U) 39.6 mg/dL Normal [facility] Work Phone: Comment on above: PATIENT WAS FASTINGP ERFORMED BY: RUBEN kWhOURS6370 [facility] [id number] Microscopic ExaminationOrder ed By: Refrigeration Insulator on 05-09-2017 Bacteria LM.HPF #/area (Urine sed) Few Normal [facility] Work Phone: Epithelial cells LM.HPF #/area (Urine sed) 0-10 Normal 0 - 10 [facility] Work Phone: RBC LM.HPF #/area (Urine sed) 0-2 Normal 0 - 2 [facility] Work Phone: WBC LM.HPF #/area (Urine sed) None seen Normal 0 - 5 [facility] Work Phone: TSH ([id number])Ordered By: Syste m Business Sales Consultant on 05-09-2017 Thyrotropin Qn 2.140 {uIU/mL} Normal 0.450-4.500 Compr ehensive Internal Medicine Work Phone: Comment on above: PATIENT WAS FASTINGP ERFORMED BY: [employer] Ksxpps5750 [facility] [id number] URINALYSIS, W/ MICRO ([id number]) Ordered By: Refrigeration Insulator on 05-09-2017 Appearance Nom (U) Clear Normal Compre hensive Internal Medicine Work Phone: Comment on above: PATIENT WAS FASTINGP ERFORMED BY: [employer] Itsmqu4346 [facility] [id number] Bilirubin Ql (U) Negative Normal Comprehe nsive Internal Medicine Work Phone: Comment on above: PATIENT WAS FASTINGP ERFORMED BY: RUBEN Amaro[address] RoadDublin [place] [id number] Bilirubin Ql (U) Negative Normal Comprehe nsive Internal Medicine; [facility] Work Phone: Comment on above: PATIENT WAS FASTINGP ERFORMED BY: RUBEN [address] [facility]bl[facility] [place] [id number] Color Nom (U) Yellow Normal Comprehensi ve Internal Medicine Work Phone: Comment on above: PATIENT WAS FASTINGP ERFORMED BY: RUBEN Cer[address] [facility] [id number] Glucose Ql (U) Negative Normal Comprehens иван Internal Medicine Work Phone: Comment on above: PATIENT WAS FASTINGP ERFORMED BY: RUBEN Cer[address] [facility] [id number] Glucose Ql (U) Negative Normal Comprehens иван Internal Medicine; [facility] Work Phone: Comment on above: PATIENT WAS FASTINGP ERFORMED BY: RUBEN Cer[address] [facility] [id number] Hemoglobin Ql (U) Negative Normal Compreh ensive Internal Medicine Work Phone: Comment on above: PATIENT WAS FASTINGP ERFORMED BY: RUBEN [address] [facility] [id number] Hemoglobin Ql (U) Negative Normal Compreh ensive Internal Medicine; [facility] Work Phone: Comment on above: PATIENT WAS FASTINGP ERFORMED BY: RUBEN Amaro[address] [facility] [id number] Hemoglobin Test strip Ql (U) Negative Normal [facility] Work Phone: Ketones Ql (U) Negative Normal Comprehens иван Internal Medicine Work Phone: Comment on above: PATIENT WAS FASTINGP ERFORMED BY: RUBEN Trevinolin6370 [facility] [id number] Ketones Ql (U) Negative Normal Comprehens иван Internal Medicine; [facility] Work Phone: Comment on above: PATIENT WAS FASTINGP ERFORMED BY: MelodyJanice Ville [id number] [address] [facility] [id number] Leukocyte esterase Test strip Ql (U) Negative Normal [facility] Work Phone: Comment on above: PATIENT WAS FASTINGP ERFORMED BY: Dustin V[place] 2507[address] [facility] [id number] Leukocyte esterase Test strip Ql (U) Negative Normal [facility]; [facility] Work Phone: Comment on above: PATIENT WAS FASTINGP ERFORMED BY: [place] 2507270 [facility] [id number] Microscopic observation LM Nom (Urine sed) MICRON Normal [facility] Work Phone: Comment on above: Microscopic follows if indicated. PATIENT WAS FASTINGP ERFORMED BY: [place] 2507270 [facility] [id number] Microscopic observation LM Nom (Urine sed) See below: Normal [facility] Work Phone: Comment on above: Microscopic was evita cated and was performed. PATIENT WAS FASTINGP ERFORMED BY: [place]in [place] [address] [facility] [id number] Nitrite Ql (U) Negative Normal Comprehens иван Internal Medicine Work Phone: Comment on above: PATIENT WAS FASTINGP ERFORMED BY: [place] [address] [facility] [id number] Nitrite Ql (U) Negative Normal Comprehens иван Internal Medicine; [facility] Work Phone: Comment on above: PATIENT WAS FASTINGP ERFORMED BY: [place] [address] [facility] [id number] Nitrite Test strip Ql (U) Negative Normal [facility] Work Phone: pH (U) 7.0 [pH] Normal 5.0-7.5 [facility] Work Phone: Comment on above: PATIENT WAS FASTINGP ERFORMED BY: RUBEN LabCo Sfyyqa6109 [address]bl[address] [place] [id number] pH Test strip (U) 7.0 [pH] Normal 5.0-7.5 Compreh ensive Internal Medicine Work Phone: Protein Ql (U) Negative Normal Comprehens иван Internal Medicine Work Phone: Comment on above: PATIENT WAS FASTINGP ERFORMED BY: RUBEN LabCo Syeyqt9983 [address] RoadUnc Health Pardeein [place] [id number] Protein Ql (U) Negative Normal Comprehens иван Internal Medicine; [facility] Work Phone: Comment on above: PATIENT WAS FASTINGP ERFORMED BY: RUBEN LabManan Grzccd8318 [address]la RoadSentara Albem[facility]le [facility] [id number] Protein Test strip Ql (U) Negative Normal [facility] Work Phone: Specific gravity Relative Density (U) 1.010 1 Normal 1.005-1.030 Comprehensi ve Internal Medicine Work Phone: Comment on above: PATIENT WAS FASTINGP ERFORMED BY: RUBEN LabCo Kwdsuj8368 [facility] [id number] Urobilinogen (U) [Mass/Vol] 0.2 mg/dL Normal 0.2-1.0 [facility]; [facility] Work Phone: Comment on above: PATIENT WAS FASTINGP ERFORMED BY: LabCo Xvrrdo[address] [facility] [id number] Urobilinogen Test strip mass conc (U) 0.2 mg/dL Normal 0.2-1.0 Comprehensiv e Internal Medicine Work Phone: Comment on above: PATIENT WAS FASTINGP ERFORMED BY: RUBEN [facility] Vkouxp7931 [facility] [id number] PAP I-G w/rfx hrHPVOrdered B y: Refrigeration Insulator on 11-28-2016 COMM . Normal [facility] Work Phone: PAPSMR Comment Normal [facility] Work Phone: Comment on above: The Pap smear is a s creening test designed to aid in thedetection of premalignant and malignant conditions of theuterine cervix. It is not a diagnostic procedure andshould not be used as the sole means of detecting cervicalcancer. Both false-positive and false-negative reports dooccur. NEGATIVE FOR INTRAEP ITHELIAL LESION AND MALIGNANCY. Satisfactory for josé luation. Endocervical and/or squamous metaplasticcells (endocervical component) are present. Jessica Mcdaniels, Cytot echnologist (ASCP) This liquid based Th inPrep(R) pap test was screened withthe use of an image guided system. The HPV DNA reflex c óscar were not met with this specimenresult therefore, no HPV testing was performed.Performed at: - [facility] [address] [id number] Director: Bess Cross MD, Phone: [phone] CALCIFIDIOL ([id number]) VIT D 25 Ordered By: Refrigeration Insulator on 10-25-2016 25-Hydroxyvitamin D2+25-Hydroxyvitamin D3 mass conc 67.7 ng/mL Normal 30.0-100.0 [facility] Work Phone: Comment on above: Vitamin D deficiency has been defined by the [place] of[place]icine and an Endocrine Society practice guideline as alevel of serum 25-OH vitamin D less than 20 ng/mL (1,2).The Endocrine Society went on to further define vitamin Dinsufficiency as a level between 21 and 29 ng/mL (2).1. IOM ([place] of Medicine). 2010. Dietary reference intakes for calcium and D. [place]: The National Academies Press.2. Krystal MF, Ashtyn NC, Troy-Rufino FLEMING, et al. Evaluation, treatment, and prevention of vitamin D deficiency: an Endocrine Society clinical practice guideline. JCEM. 2010; 96(7):1911-30. PATIENT WAS FASTINGP ERFORMED BY: [facility] Tyfdqh3903 [address] RoadDublMuhlenberg Community Hospital [id number]; fu 4-24 kf CBC WITH MANUAL DIFF ([id number]) Ordered By: Refrigeration Insulator on 10-25-2016 Basophils (Bld) [#/Vol] 0.1 {x10E3/uL} Normal 0.0-0.2 [facility] Work Phone: Comment on above: PATIENT WAS FASTINGP ERFORMED BY: [address] [id number] Basophils (Bld) [#/Vol] 0.1 10*3/uL Normal 0.0-0.2 [facility]; [facility] Work Phone: Comment on above: PATIENT WAS FASTINGP ERFORMED BY: [address] [id number] Basophils Auto #/vol (Bld) 0.1 {x10E3/uL} Normal 0.0-0.2 [facility] Work Phone: Basophils/100 WBC (Bld) 1 % Normal [facility] Work Phone: Comment on above: PATIENT WAS FASTINGP ERFORMED BY: [address] [id number] Basophils/100 WBC Auto (Bld) 1 % Normal [facility] Work Phone: Eosinophils (Bld) [#/Vol] 0.1 {x10E3/uL} Normal 0.0-0.4 [facility] Work Phone: Comment on above: PATIENT WAS FASTINGP ERFORMED BY: [address] [id number] Eosinophils (Bld) [#/Vol] 0.1 10*3/uL Normal 0.0-0.4 [facility]; [facility] Work Phone: Comment on above: PATIENT WAS FASTINGP ERFORMED BY: [address] [id number] Eosinophils Auto #/vol (Bld) 0.1 {x10E3/uL} Normal 0.0-0.4 [facility] Work Phone: Eosinophils/100 WBC (Bld) 1 % Normal [facility] Work Phone: Comment on above: PATIENT WAS FASTINGP ERFORMED BY: RUBEN [facility] Xlrnrt[address] [facility] [id number] Eosinophils/100 WBC Auto (Bld) 1 % Normal [facility] Work Phone: Erythrocyte distribution width (RBC) [Ratio] 13.1 % Normal 12.3-15.4 [facility] Work Phone: Comment on above: PATIENT WAS FASTINGP ERFORMED BY: RUBEN [facility] Crwrai[address] [facility] [id number] Erythrocyte distribution width Auto Ratio (RBC) 13.1 % Normal 12.3-15.4 [facility] Work Phone: Hematocrit (Bld) [Volume fraction] 40.8 % Normal 34.0-46.6 [facility] Work Phone: Comment on above: PATIENT WAS FASTINGP ERFORMED BY: RUBEN LabParker TrevinoCrlwwz6126 [facility] [id number] Hematocrit Auto Volume Fraction (Bld) 40.8 % Normal 34.0-46.6 [facility] Medicine Work Phone: Hemoglobin mass conc (Bld) 12.9 g/dL Normal 11.1-15.9 [facility] Work Phone: Comment on above: PATIENT WAS FASTINGP ERFORMED BY: RUBEN LabCohiro TrevinoFxhuev0678 [facility] [id number] Immature granulocytes #/vol (Bld) 0.0 {x10E3/uL} Normal 0.0-0.1 [facility] Work Phone: Comment on above: PATIENT WAS FASTINGP ERFORMED BY: [facility] Vsrugo4993 [address] [facility] [place] [id number] Immature granulocytes (Bld) [#/Vol] 0.0 10*3/uL Normal 0.0-0.1 [facility]; [facility] Work Phone: Comment on above: PATIENT WAS FASTINGP ERFORMED BY: RUBEN LabCo Iyivis[address] [facility] [id number] Immature granulocytes/100 WBC (Bld) 0 % Normal [facility] Work Phone: Comment on above: PATIENT WAS FASTINGP ERFORMED BY: RUBEN Trevinolin6370 [facility] [id number] Lymphocytes (Bld) [#/Vol] 2.3 {x10E3/uL} Normal 0.7-3.1 [facility] Work Phone: Comment on above: PATIENT WAS FASTINGP ERFORMED BY: RUBEN Andrew Pjmgdv[address] [id number] Lymphocytes (Bld) [#/Vol] 2.3 10*3/uL Normal 0.7-3.1 [facility]; [facility] Work Phone: Comment on above: PATIENT WAS FASTINGP ERFORMED BY: RUBEN Trevino[address] [id number] Lymphocytes Auto #/vol (Bld) 2.3 {x10E3/uL} Normal 0.7-3.1 [facility] Work Phone: Lymphocytes/100 WBC (Bld) 32 % Normal [facility] Work Phone: Comment on above: PATIENT WAS FASTINGP ERFORMED BY: RUBEN Amaro[address] [place] [address] [id number] Lymphocytes/100 WBC Auto (Bld) 32 % Normal [facility] Work Phone: MCH (RBC) [Entitic mass] 31.2 pg Normal 26.6-33.0 [facility] Work Phone: Comment on above: PATIENT WAS FASTINGP ERFORMED BY: RUBEN [place] [id number] [facility] [id number] MCH Auto Entitic mass (RBC) 31.2 pg Normal 26.6-33.0 [facility] Work Phone: MCHC (RBC) [Mass/Vol] 31.6 g/dL Normal 31.5-35.7 [facility] prehensive [facility] Medicine Work Phone: Comment on above: PATIENT WAS FASTINGP ERFORMED BY: [facility]6370 [facility] [id number] MCHC Auto mass conc (RBC) 31.6 g/dL Normal 31.5-35.7 [facility] Work Phone: MCV (RBC) [Entitic vol] 99 fL Abnormal 79-97 [facility] Work Phone: Comment on above: PATIENT WAS FASTINGP ERFORMED BY: [facility]6370 [facility] [id number] MCV Auto Entitic volume (RBC) 99 fL Abnormal 79-97 [facility] Work Phone: Monocytes (Bld) [#/Vol] 0.5 {x10E3/uL} Normal 0.1-0.9 [facility] Work Phone: Comment on above: PATIENT WAS FASTINGP ERFORMED BY: [place] [id number] [facility] [id number] Monocytes (Bld) [#/Vol] 0.5 10*3/uL Normal 0.1-0.9 [facility]; [facility] Work Phone: Comment on above: PATIENT WAS FASTINGP ERFORMED BY: [facility]6370 [facility] [id number] Monocytes Auto #/vol (Bld) 0.5 {x10E3/uL} Normal 0.1-0.9 [facility] Work Phone: Monocytes/100 WBC (Bld) 7 % Normal [facility] Work Phone: Comment on above: PATIENT WAS FASTINGP ERFORMED BY: [facility]6370 [facility] [id number] Monocytes/100 WBC Auto (Bld) 7 % Normal [facility] Work Phone: Neutrophils (Bld) [#/Vol] 4.1 {x10E3/uL} Normal 1.4-7.0 [facility] Work Phone: Comment on above: PATIENT WAS FASTINGP ERFORMED BY: [place] [id number] [facility] [id number] Neutrophils (Bld) [#/Vol] 4.1 10*3/uL Normal 1.4-7.0 [facility]; [facility] Work Phone: Comment on above: PATIENT WAS FASTINGP ERFORMED BY: CB [facility] Mtbrah1331 [address] RoadDublin [place] [id number] Neutrophils Auto #/vol (Bld) 4.1 {x10E3/uL} Normal 1.4-7.0 [facility] Work Phone: Neutrophils/100 WBC (Bld) 59 % Normal [facility] Work Phone: Comment on above: PATIENT WAS FASTINGP ERFORMED BY: CB [facility] Vcxanq6593 [address] RoadDublin [place] [id number] Neutrophils/100 WBC Auto (Bld) 59 % Normal [facility] Work Phone: Platelets (Bld) [#/Vol] 357 {x10E3/uL} Normal 150-379 [facility] Work Phone: Comment on above: PATIENT WAS FASTINGP ERFORMED BY: RUBEN [facility] Azmerz9057 [address] Roadblin [place] [id number] Platelets (Bld) [#/Vol] 357 10*3/uL Normal 150-379 [facility]; [facility] Work Phone: Comment on above: PATIENT WAS FASTINGP ERFORMED BY: CB [facility] Iygppj2630 [address] Roadblin [place] [id number] Platelets Auto #/vol (Bld) 357 {x10E3/uL} Normal 150-379 [facility] Work Phone: RBC (Bld) [#/Vol] 4.13 {x10E6/uL} Normal 3.77-5.28 [facility] Internal Medicine Work Phone: Comment on above: PATIENT WAS FASTINGP ERFORMED BY: CB [facility] Rxjbji4730 [address] RoadDublin [place] [id number] RBC (Bld) [#/Vol] 4.13 10*6/uL Normal 3.77-5.28 Compr ehensive Internal Medicine; [facility] Work Phone: Comment on above: PATIENT WAS FASTINGP ERFORMED BY: RUBEN [employer] [employer] Wheelsh[employer] Dydpkb4276 [facility] [id number] RBC Auto #/vol (Bld) 4.13 {x10E6/uL} Normal 3.77-5.28 [facility] Work Phone: WBC (Bld) [#/Vol] 7.0 {x10E3/uL} Normal 3.4-10.8 [facility] Internal Medicine Work Phone: Comment on above: PATIENT WAS FASTINGP ERFORMED BY: RUBEN [employer] Rpiwfp4144 [facility] [id number] WBC (Bld) [#/Vol] 7.0 10*3/uL Normal 3.4-10.8 [facility]; [facility] Work Phone: Comment on above: PATIENT WAS FASTINGP ERFORMED BY: RUBEN [employer] Nukjco3904 [facility] [id number] WBC Auto #/vol (Bld) 7.0 {x10E3/uL} Normal 3.4-10.8 [facility] Work Phone: Lipid Panel ([id number])Ordered B y: Refrigeration Insulator on 10-25-2016 Cholesterol in HDL mass conc 63 mg/dL Normal [facility] Work Phone: Comment on above: PATIENT WAS FASTINGP ERFORMED BY: RUBEN [employer] Glodkm4795 [facility] [id number] Cholesterol in LDL mass conc 89 mg/dL Normal 0-99 [facility] Work Phone: Comment on above: PATIENT WAS FASTINGP ERFORMED BY: RUBEN [employer] Wgxxvf6109 [facility] [id number] Cholesterol in LDL/Cholesterol in HDL mass ratio 1.4 {ratio_units} Normal 0.0-3.2 [facility] Work Phone: Comment on above: LDL/HDL Ratio Men Wo men 1/2 Avg.Risk 1.0 1.5 Avg.Risk 3.6 3.2 2X Avg.Risk 6.2 5.0 3X Avg.Risk 8.0 6.1 PATIENT WAS FASTINGP ERFORMED BY: RUBEN [facility] Rzajxk4598 [facility] [id number] Cholesterol in VLDL mass conc 17 mg/dL Normal 5-40 [facility] Work Phone: Comment on above: PATIENT WAS FASTINGP ERFORMED BY: RUBEN [facility] Agjxha7452 [facility] [id number] Cholesterol mass conc 169 mg/dL Normal 100-199 [facility] prehensive Internal Medicine Work Phone: Comment on above: PATIENT WAS FASTINGP ERFORMED BY: RUBEN [facility]Research [facility] Zewjqz2493 [facility] [id number] Triglyceride mass conc 83 mg/dL Normal 0-149 [facility] Work Phone: Comment on above: PATIENT WAS FASTINGP ERFORMED BY: RUBEN LabMclaren [facility]6370 [facility] [id number] MICROALBUMINOrdered By: Syst em Business Sales Consultant on 10-25-2016 Albumin DL <= 20 mg/L mass conc (U) 10.7 ug/mL Normal [facility] Work Phone: Comment on above: PATIENT WAS FASTINGP ERFORMED BY: RUBEN LabResearch [facility] Cfkmia3993 [facility] [id number] Albumin/Creatinine mass ratio (U) 6.5 {mg/g_creat} Normal 0.0-30.0 [facility] Work Phone: Comment on above: PATIENT WAS FASTINGP ERFORMED BY: RUBEN LabCo Mrstaa1796 [facility] [id number] Creatinine mass conc (U) 164.8 mg/dL Normal [facility] Work Phone: Comment on above: PATIENT WAS FASTINGP ERFORMED BY: RUBEN [facility] Bxnxye[address] [facility] [id number] Metabolic Panel, Comprehensi ve ([id number])Ordered By: Refrigeration Insulator on 10-25-2016 Albumin mass conc 4.5 g/dL Normal 3.5-5.5 [facility] Internal Medicine Work Phone: Comment on above: PATIENT WAS FASTINGP ERFORMED BY: RUBEN LabCohiro Iqwpdl1267 [address] RoadDublin [place] [id number] Albumin/Globulin mass ratio 1.8 {ratio} Normal 1.2-2.2 [facility] Work Phone: Comment on above: PATIENT WAS FASTINGP ERFORMED BY: RUBEN [facility] Ysmusf4157 [address] RoadDublin [place] [id number] ALP [Catalytic activity/Vol] 54 U/L Normal 39-117 [facility]; [facility] Internal Medicine Work Phone: Comment on above: PATIENT WAS FASTINGP ERFORMED BY: RUBEN LabCohiro TrevinoYdhcfq7830 [address] RoadDublin [place] [id number] ALP enzyme act/vol 54 [iU]/L Normal 39-117 [facility] Internal Medicine Work Phone: Comment on above: PATIENT WAS FASTINGP ERFORMED BY: [facility] Jwjuvv6546 [address] RoadDublin [place] [id number] ALT [Catalytic activity/Vol] 10 U/L Normal 0-32 [facility]; [facility] Internal Medicine Work Phone: Comment on above: PATIENT WAS FASTINGP ERFORMED BY: LabCohiro Nqcgdy2561 [address] RoadDublin [place] [id number] ALT enzyme act/vol 10 [iU]/L Normal 0-32 [facility] Internal Medicine Work Phone: Comment on above: PATIENT WAS FASTINGP ERFORMED BY: [facility] Hwxsgs4935 [address] RoadDublin [place] [id number] AST [Catalytic activity/Vol] 13 U/L Normal 0-40 [facility]; [facility] Internal Medicine Work Phone: Comment on above: PATIENT WAS FASTINGP ERFORMED BY: [facility] Ujugqr2373 [address] RoadDublin [place] [id number] AST enzyme act/vol 13 [iU]/L Normal 0-40 [facility] Internal Medicine Work Phone: Comment on above: PATIENT WAS FASTINGP ERFORMED BY: RUBEN [facility] Siqtjo4897 [address] RoadDublin [place] [id number] Bilirubin mass conc 0.4 mg/dL Normal 0.0-1.2 Compr ensive Internal Medicine Work Phone: Comment on above: PATIENT WAS FASTINGP ERFORMED BY: RUBEN [facility] Icqksc1038 [address] RoadDublin [place] [id number] Calcium mass conc 9.6 mg/dL Normal 8.7-10.2 Compreh ensive Internal Medicine Work Phone: Comment on above: PATIENT WAS FASTINGP ERFORMED BY: CB [facility] Wthbgr3685 [address] RoadDublin [place] [id number] Chloride molar conc 97 mmol/L Normal 96-106 Compr [facility] Internal Medicine Work Phone: Comment on above: PATIENT WAS FASTINGP ERFORMED BY: RUBEN [facility] Lugwev8698 [address] RoadDublin [place] [id number] CO2 molar conc 26 mmol/L Normal 18-29 Comprehens иван Internal Medicine Work Phone: Comment on above: PATIENT WAS FASTINGP ERFORMED BY: RUBEN [facility] Myxspw6075 [address] Roadblin [place] [id number] Creatinine mass conc 0.84 mg/dL Normal 0.57-1.00 Comp [facility] Work Phone: Comment on above: PATIENT WAS FASTINGP ERFORMED BY: RUBEN [facility] Bshwkw7372 [address] RoadUnc Health Pardeein [place] [id number] GFR/1.73 sq M predicted among blacks CKD-EPI vol rate/area (S/P/Bld) 95 mL/min/1.73 Normal Comprehensiv e Internal Medicine Work Phone: Comment on above: PATIENT WAS FASTINGP ERFORMED BY: CB [facility] Onauph9538 [address] RoadDublin [place] [id number] GFR/1.73 sq M predicted among non-blacks CKD-EPI vol rate/area (S/P/Bld) 82 mL/min/1.73 Normal [facility] Work Phone: Comment on above: PATIENT WAS FASTINGP ERFORMED BY: RUBEN [facility] Bdmvrm5352 [address] RoadDublin [place] [id number] Globulin (S) [Mass/Vol] 2.5 g/dL Normal 1.5-4.5 [facility] Work Phone: Comment on above: PATIENT WAS FASTINGP ERFORMED BY: RUBEN [facility] Othkbf9803 [address] RoadDublin [place] [id number] Globulin Calculated mass conc (S) 2.5 g/dL Normal 1.5-4.5 [facility] Work Phone: Glucose mass conc 88 mg/dL Normal 65-99 Compreh ensive Internal Medicine Work Phone: Comment on above: PATIENT WAS FASTINGP ERFORMED BY: RUBEN [facility] Grnovi2428 [address] RoadDublin [place] [id number] Potassium molar conc 4.3 mmol/L Normal 3.5-5.2 Comp rehensive Internal Medicine Work Phone: Comment on above: PATIENT WAS FASTINGP ERFORMED BY: RUBEN [facility] Pnqovj6754 [address] RoadDublin [place] [id number] Protein mass conc 7.0 g/dL Normal 6.0-8.5 Compreh ensive Internal Medicine Work Phone: Comment on above: PATIENT WAS FASTINGP ERFORMED BY: RUBEN [facility] Mvaueg0934 [address] RoadDublin [place] [id number] Sodium molar conc 140 mmol/L Normal 134-144 Compreh ensive Internal Medicine Work Phone: Comment on above: PATIENT WAS FASTINGP ERFORMED BY: RUBEN [facility] Hgmvnn6195 [address] RoadDublin [place] [id number] Urea nitrogen mass conc 16 mg/dL Normal 6-24 [facility] Work Phone: Comment on above: PATIENT WAS FASTINGP ERFORMED BY: [facility] Xsjjvz4102 [address] RoadDublin [place] [id number] Urea nitrogen/Creatinine mass ratio 19 mg/mg Normal 9-23 [facility] Work Phone: Comment on above: PATIENT WAS FASTINGP ERFORMED BY: [employer] Mcnwfj3424 [facility] [id number] CALCIFIDIOL (52447) VIT D 25 Ordered By: Refrigeration Insulator on 05-31-2016 25-Hydroxyvitamin D2+25-Hydroxyvitamin D3 mass conc 78.0 ng/mL Normal 30.0-100.0 [facility] Work Phone: Comment on above: Vitamin D deficiency has been defined by the [place] ofTri[facility] Hospitalcine and an Endocrine Society practice guideline as alevel of serum 25-OH vitamin D less than 20 ng/mL (1,2).The Endocrine Society went on to further define vitamin Dinsufficiency as a level between 21 and 29 ng/mL (2).1. IOM ([place] of Medicine). 2010. Dietary reference intakes for calcium and D. [place]: The National Academies Press.2. Krystal MF, Ashtyn GREENBERG, Cassandra FLEMING, et al. Evaluation, treatment, and prevention of vitamin D deficiency: an Endocrine Society clinical practice guideline. JCEM. 2010; 96(7):1911-30. PATIENT WAS FASTINGP ERFORMED BY: Wake[employer]ate6370 [facility] [id number] CBC W/AUTO DIFF WBC ([id number])O rdered By: Refrigeration Insulator on 05-31-2016 Basophils (Bld) [#/Vol] 0.0 {x10E3/uL} Normal 0.0-0.2 [facility] Work Phone: Comment on above: PATIENT WAS FASTINGP ERFORMED BY: [employer] Hipmqm1097 [facility] [id number] Basophils (Bld) [#/Vol] 0.0 10*3/uL Normal 0.0-0.2 [facility]; [facility] Work Phone: Comment on above: PATIENT WAS FASTINGP ERFORMED BY: Prism Pharmaceuticalslin6370 [facility] [id number] Basophils Auto #/vol (Bld) 0.0 {x10E3/uL} Normal 0.0-0.2 [facility] Work Phone: Basophils/100 WBC (Bld) 0 % Normal [facility] Work Phone: Comment on above: PATIENT WAS FASTINGP ERFORMED BY: RUBEN [place] 0856770 [facility] [id number] Basophils/100 WBC Auto (Bld) 0 % Normal [facility] Work Phone: Eosinophils (Bld) [#/Vol] 0.1 {x10E3/uL} Normal 0.0-0.4 [facility] Work Phone: Comment on above: PATIENT WAS FASTINGP ERFORMED BY: RUBEN [facility] Oolrxa7707 [facility] [id number] Eosinophils (Bld) [#/Vol] 0.1 10*3/uL Normal 0.0-0.4 [facility]; [facility] Work Phone: Comment on above: PATIENT WAS FASTINGP ERFORMED BY: RUBEN [facility] Rpcgip2549 [facility] [id number] Eosinophils Auto #/vol (Bld) 0.1 {x10E3/uL} Normal 0.0-0.4 [facility] Work Phone: Eosinophils/100 WBC (Bld) 1 % Normal [facility] Work Phone: Comment on above: PATIENT WAS FASTINGP ERFORMED BY: RUBEN [facility] Eallxt1066 [facility] [id number] Eosinophils/100 WBC Auto (Bld) 1 % Normal [facility] Work Phone: Erythrocyte distribution width (RBC) [Ratio] 13.4 % Normal 12.3-15.4 [facility] Work Phone: Comment on above: PATIENT WAS FASTINGP ERFORMED BY: RUBEN [place] 0856770 [facility] [id number] Erythrocyte distribution width Auto Ratio (RBC) 13.4 % Normal 12.3-15.4 [facility] Work Phone: Hematocrit (Bld) [Volume fraction] 37.1 % Normal 34.0-46.6 [facility] Work Phone: Comment on above: PATIENT WAS FASTINGP ERFORMED BY: RUBEN [facility] Yvjras6749 [address] [facility] [place] [id number] Hematocrit Auto Volume Fraction (Bld) 37.1 % Normal 34.0-46.6 [facility] Internal Medicine Work Phone: Hemoglobin mass conc (Bld) 12.0 g/dL Normal 11.1-15.9 [facility] Work Phone: Comment on above: PATIENT WAS FASTINGP ERFORMED BY: RUBEN Lab[facility] Bltfxz8481 [address] RoadUnc Health Pardeein [place] [id number] Immature granulocytes #/vol (Bld) 0.0 {x10E3/uL} Normal 0.0-0.1 [facility] Work Phone: Comment on above: PATIENT WAS FASTINGP ERFORMED BY: RUBEN [facility] Crngek9912 [address] RoadUnc Health Pardeein [place] [id number] Immature granulocytes (Bld) [#/Vol] 0.0 10*3/uL Normal 0.0-0.1 [facility]; [facility] Work Phone: Comment on above: PATIENT WAS FASTINGP ERFORMED BY: RUBEN LabCohiro TrevinoRalrkg8645 [address] RoadUnc Health Pardeein [place] [id number] Immature granulocytes/100 WBC (Bld) 0 % Normal [facility] Work Phone: Comment on above: PATIENT WAS FASTINGP ERFORMED BY: RUBEN [facility] Hrzynk[address] [facility] [id number] Lymphocytes (Bld) [#/Vol] 1.8 {x10E3/uL} Normal 0.7-3.1 [facility] Work Phone: Comment on above: PATIENT WAS FASTINGP ERFORMED BY: Lab[facility] Acrobw[address] [facility] [id number] Lymphocytes (Bld) [#/Vol] 1.8 10*3/uL Normal 0.7-3.1 [facility]; [facility] Work Phone: Comment on above: PATIENT WAS FASTINGP ERFORMED BY: [facility]6370 [facility] [id number] Lymphocytes Auto #/vol (Bld) 1.8 {x10E3/uL} Normal 0.7-3.1 [facility] Work Phone: Lymphocytes/100 WBC (Bld) 26 % Normal [facility] Work Phone: Comment on above: PATIENT WAS FASTINGP ERFORMED BY: [place] 2507270 [facility] [id number] Lymphocytes/100 WBC Auto (Bld) 26 % Normal [facility] Work Phone: MCH (RBC) [Entitic mass] 31.3 pg Normal 26.6-33.0 [facility] Work Phone: Comment on above: PATIENT WAS FASTINGP ERFORMED BY: [place] 2507270 [facility] [id number] MCH Auto Entitic mass (RBC) 31.3 pg Normal 26.6-33.0 [facility] Work Phone: MCHC (RBC) [Mass/Vol] 32.3 g/dL Normal 31.5-35.7 [facility] Internal Medicine Work Phone: Comment on above: PATIENT WAS FASTINGP ERFORMED BY: [place] 2507270 [facility] [id number] MCHC Auto mass conc (RBC) 32.3 g/dL Normal 31.5-35.7 [facility] Internal Medicine Work Phone: MCV (RBC) [Entitic vol] 97 fL Normal 79-97 [facility] Work Phone: Comment on above: PATIENT WAS FASTINGP ERFORMED BY: [place] 2507270 [facility] [id number] MCV Auto Entitic volume (RBC) 97 fL Normal 79-97 [facility] Work Phone: Monocytes (Bld) [#/Vol] 0.5 {x10E3/uL} Normal 0.1-0.9 [facility] Work Phone: Comment on above: PATIENT WAS FASTINGP ERFORMED BY: [facility]6[address] [facility] [place] [id number] Monocytes (Bld) [#/Vol] 0.5 10*3/uL Normal 0.1-0.9 [facility]; [facility] Work Phone: Comment on above: PATIENT WAS FASTINGP ERFORMED BY: [facility]6[address] [facility] [place] [id number] Monocytes Auto #/vol (Bld) 0.5 {x10E3/uL} Normal 0.1-0.9 [facility] Work Phone: Monocytes/100 WBC (Bld) 8 % Normal [facility] Work Phone: Comment on above: PATIENT WAS FASTINGP ERFORMED BY: [facility]6[address] [facility] [place] [id number] Monocytes/100 WBC Auto (Bld) 8 % Normal [facility] Work Phone: Neutrophils (Bld) [#/Vol] 4.6 {x10E3/uL} Normal 1.4-7.0 [facility] Work Phone: Comment on above: PATIENT WAS FASTINGP ERFORMED BY: [place] [id number] [facility] [id number] Neutrophils (Bld) [#/Vol] 4.6 10*3/uL Normal 1.4-7.0 [facility]; [facility] Work Phone: Comment on above: PATIENT WAS FASTINGP ERFORMED BY: [facility] [facility]in [place] [id number] Neutrophils Auto #/vol (Bld) 4.6 {x10E3/uL} Normal 1.4-7.0 [facility] Work Phone: Neutrophils/100 WBC (Bld) 65 % Normal [facility] Work Phone: Comment on above: PATIENT WAS FASTINGP ERFORMED BY: [facility] RoadDublin [place] [id number] Neutrophils/100 WBC Auto (Bld) 65 % Normal [facility] Work Phone: Platelets (Bld) [#/Vol] 336 {x10E3/uL} Normal 150-379 [facility] Work Phone: Comment on above: PATIENT WAS FASTINGP ERFORMED BY: RUBEN [facility] Pmvfjb4996 [address] RoadDublin [place] [id number] Platelets (Bld) [#/Vol] 336 10*3/uL Normal 150-379 [facility]; [facility] Work Phone: Comment on above: PATIENT WAS FASTINGP ERFORMED BY: RUBEN [facility] Wgpaob5774 [address] RoadDublin [place] [id number] Platelets Auto #/vol (Bld) 336 {x10E3/uL} Normal 150-379 [facility] Work Phone: RBC (Bld) [#/Vol] 3.83 {x10E6/uL} Normal 3.77-5.28 [facility] Internal Medicine Work Phone: Comment on above: PATIENT WAS FASTINGP ERFORMED BY: RUBEN [facility] Jnupki4886 [address]la RoadDuin [place] [id number] RBC (Bld) [#/Vol] 3.83 10*6/uL Normal 3.77-5.28 [facility] Internal Medicine; [facility] Work Phone: Comment on above: PATIENT WAS FASTINGP ERFORMED BY: RUBEN [facility] Ghfizx0157 [address] RoadDuin [place] [id number] RBC Auto #/vol (Bld) 3.83 {x10E6/uL} Normal 3.77-5.28 [facility] Internal Medicine Work Phone: WBC (Bld) [#/Vol] 7.1 {x10E3/uL} Normal 3.4-10.8 [facility] Internal Medicine Work Phone: Comment on above: PATIENT WAS FASTINGP ERFORMED BY: RUBEN [facility] Mzcgzi8193 [address] RoadDublin [place] [id number] WBC (Bld) [#/Vol] 7.1 10*3/uL Normal 3.4-10.8 [facility] Internal [facility]; [facility] Work Phone: Comment on above: PATIENT WAS FASTINGP ERFORMED BY: RUBEN Trevinolin[address] MozyUNC [facility] Johnston [id number] WBC Auto #/vol (Bld) 7.1 {x10E3/uL} Normal 3.4-10.8 [facility] Work Phone: LIPID PANEL ([id number])Ordered B y: Refrigeration Insulator on 05-31-2016 Cholesterol in HDL mass conc 48 mg/dL Normal [facility] Work Phone: Comment on above: PATIENT WAS FASTINGP ERFORMED BY: RUBEN Amaro[address] MozyUNC Health Johnston [id number] Cholesterol in LDL mass conc 93 mg/dL Normal 0-99 [facility] Work Phone: Comment on above: PATIENT WAS FASTINGP ERFORMED BY: RUBEN Amaro[address] MozyUNC Health Johnston [id number] Cholesterol in LDL/Cholesterol in HDL mass ratio 1.9 {ratio_units} Normal 0.0-3.2 [facility] Work Phone: Comment on above: LDL/HDL Ratio Men Wo men 1/2 Avg.Risk 1.0 1.5 Avg.Risk 3.6 3.2 2X Avg.Risk 6.2 5.0 3X Avg.Risk 8.0 6.1 PATIENT WAS FASTINGP ERFORMED BY: RUBEN Trevinolin[address] [facility] BioSciencesSentara Alb[facility] [id number] Cholesterol in VLDL mass conc 24 mg/dL Normal 5-40 [facility] Work Phone: Comment on above: PATIENT WAS FASTINGP ERFORMED BY: RUBEN Amaro[address] Mozyin [place] [id number] Cholesterol mass conc 165 mg/dL Normal 100-199 [facility] prehensive Internal Medicine Work Phone: Comment on above: PATIENT WAS FASTINGP ERFORMED BY: RUBEN Amaro[address] MozyUNC Health Johnston [id number] Triglyceride mass conc 118 mg/dL Normal 0-149 [facility] Work Phone: Comment on above: PATIENT WAS FASTINGP ERFORMED BY: RUBEN [facility] Whtkly5901 [address] RoadDublin [place] [id number] METABOLIC PANEL, COMPREHENSI VE ([id number])Ordered By: Refrigeration Insulator on 05-31-2016 Albumin mass conc 4.5 g/dL Normal 3.5-5.5 Compreh [facility] Internal Medicine Work Phone: Comment on above: PATIENT WAS FASTINGP ERFORMED BY: CB [facility] Qdbnbg2329 [address] RoadDublin [place] [id number] Albumin/Globulin mass ratio 2.0 {ratio} Normal 1.1-2.5 [facility] Work Phone: Comment on above: PATIENT WAS FASTINGP ERFORMED BY: RUBEN [facility] Ttuiqy8668 [address] RoadDublin [place] [id number] ALP [Catalytic activity/Vol] 45 U/L Normal 39-117 [facility]; [facility] Work Phone: Comment on above: PATIENT WAS FASTINGP ERFORMED BY: RUBEN [facility] Erfuqa9988 [address] RoadDublin [place] [id number] ALP enzyme act/vol 45 [iU]/L Normal 39-117 [facility] Internal Medicine Work Phone: Comment on above: PATIENT WAS FASTINGP ERFORMED BY: CB [facility] Ehpypv6583 [address] RoadDublin [place] [id number] ALT [Catalytic activity/Vol] 13 U/L Normal 0-32 [facility]; [facility] Internal Medicine Work Phone: Comment on above: PATIENT WAS FASTINGP ERFORMED BY: CB [facility] Qvaqlb1415 [address] RoadDublin [place] [id number] ALT enzyme act/vol 13 [iU]/L Normal 0-32 [facility] Internal Medicine Work Phone: Comment on above: PATIENT WAS FASTINGP ERFORMED BY: CB [facility] Winaas19[address] RoadDublin [place] [id number] AST [Catalytic activity/Vol] 14 U/L Normal 0-40 [facility]; [facility] Work Phone: Comment on above: PATIENT WAS FASTINGP ERFORMED BY: RUBEN [facility] Kbdomc[address] [facility]blin [place] [id number] AST enzyme act/vol 14 [iU]/L Normal 0-[address] [facility] Internal Medicine Work Phone: Comment on above: PATIENT WAS FASTINGP ERFORMED BY: RUBEN [facility] Zlcwuv[address] [facility]in [place] [id number] Bilirubin mass conc 0.4 mg/dL Normal 0.0-1.2 Compr ensive Internal Medicine Work Phone: Comment on above: PATIENT WAS FASTINGP ERFORMED BY: RUBEN LabCohiro Alqbnr[address] [facility] [id number] Calcium mass conc 9.4 mg/dL Normal 8.7-10.2 Compreh [facility] hospitalive Internal Medicine Work Phone: Comment on above: PATIENT WAS FASTINGP ERFORMED BY: RUBEN LabCohiro TrevinoSjhjqj[address] [facility] [id number] Chloride molar conc 95 mmol/L Abnormal 97-106 Compr [facility] Internal Medicine Work Phone: Comment on above: PATIENT WAS FASTINGP ERFORMED BY: RUBEN LabCohiro Xmvgik4543 [facility] [id number] CO2 molar conc 23 mmol/L Normal 18-29 Comprehens иван Internal Medicine Work Phone: Comment on above: PATIENT WAS FASTINGP ERFORMED BY: RUBEN [facility] Lfkpqs1636 [facility] [id number] Creatinine mass conc 0.73 mg/dL Normal 0.57-1.00 Comp [facility] Internal Medicine Work Phone: Comment on above: PATIENT WAS FASTINGP ERFORMED BY: RUBEN [facility] [address]wsx[address] [facility] [id number] GFR/1.73 sq M predicted among blacks CKD-EPI vol rate/area (S/P/Bld) 113 mL/min/1.73 Normal Comprehensiv e Internal Medicine Work Phone: Comment on above: PATIENT WAS FASTINGP ERFORMED BY: RUBEN [facility] Aigkzl05[address] RoadDublin [place] [id number] GFR/1.73 sq M predicted among non-blacks CKD-EPI vol rate/area (S/P/Bld) 98 mL/min/1.73 Normal [facility] Work Phone: Comment on above: PATIENT WAS FASTINGP ERFORMED BY: RUBEN [facility] Macoon68[address] Roadblin [place] [id number] Globulin (S) [Mass/Vol] 2.3 g/dL Normal 1.5-4.5 [facility] Work Phone: Comment on above: PATIENT WAS FASTINGP ERFORMED BY: RUBEN [facility] Ednavj30[address] Roadblin [place] [id number] Globulin Calculated mass conc (S) 2.3 g/dL Normal 1.5-4.5 [facility] Work Phone: Glucose mass conc 86 mg/dL Normal 65-99 Compreh ensive Internal Medicine Work Phone: Comment on above: PATIENT WAS FASTINGP ERFORMED BY: RUBEN [facility] Ejqvvu[address] [facility]in [place] [id number] Potassium molar conc 4.2 mmol/L Normal 3.5-5.2 Comp rehensive Internal Medicine Work Phone: Comment on above: PATIENT WAS FASTINGP ERFORMED BY: RUBEN [facility] Nmianh[address] [facility]in [place] [id number] Protein mass conc 6.8 g/dL Normal 6.0-8.5 Compreh ensive Internal Medicine Work Phone: Comment on above: PATIENT WAS FASTINGP ERFORMED BY: [facility] Mswkat[address] [facility] HospitalDublin [place] [id number] Sodium molar conc 139 mmol/L Normal 136-144 Compreh ensive Internal Medicine Work Phone: Comment on above: PATIENT WAS FASTINGP ERFORMED BY: RUBEN [facility] Apqdqx[address] [facility]bl[facility] [place] [id number] Urea nitrogen mass conc 16 mg/dL Normal 6-24 [facility] Work Phone: Comment on above: PATIENT WAS FASTINGP ERFORMED BY: [facility] Ylkflh8018 [facility] [id number] Urea nitrogen/Creatinine mass ratio 22 mg/mg Normal 9- [facility] Work Phone: Comment on above: PATIENT WAS FASTINGP ERFORMED BY: [facility] Zzwncl6862 [facility] [id number] MICROALBUMINOrdered By: Syst em Business Sales Consultant on 05-31-2016 Albumin DL <= 20 mg/L (U) [Mass/Vol] mg/dL Normal [facility]; [facility] Work Phone: Comment on above: PATIENT WAS FASTINGP ERFORMED BY: LabM[facility]6370 [facility] [id number] Albumin DL <= 20 mg/L mass conc (U) mg/dL Normal [facility] Work Phone: Comment on above: PATIENT WAS FASTINGP ERFORMED BY: LabM[facility]6370 [facility] [id number] Albumin/Creatinine mass ratio (U) <6.7 Normal 0.0-30.0 [facility] Work Phone: Comment on above: PATIENT WAS FASTINGP ERFORMED BY: LabM[facility]6370 [facility] [id number] Creatinine mass conc (U) 44.9 mg/dL Normal [facility] Work Phone: Comment on above: PATIENT WAS FASTINGP ERFORMED BY: LabM[facility]6370 [facility] [id number] Microscopic ExaminationOrder ed By: Refrigeration Insulator on 05-31-2016 Bacteria LM.HPF #/area (Urine sed) Few Normal [facility] Work Phone: Crystals LM Nom (Urine sed) Amorphous Sediment Normal [facility] Work Phone: Epithelial cells LM.HPF #/area (Urine sed) 0-10 Normal 0 - 10 [facility] Work Phone: Mucus LM Ql (Urine sed) Present Normal [facility] Work Phone: RBC LM.HPF #/area (Urine sed) 0-2 Normal 0 - 2 [facility] Work Phone: Unidentified crystals LM Ql (Urine sed) Present Abnormal [facility] Work Phone: WBC LM.HPF #/area (Urine sed) 0-5 Normal 0 - 5 [facility] Work Phone: TSH ([id number])Ordered By: Syste m Business Sales Consultant on 05-31-2016 Thyrotropin Qn 1.880 {uIU/mL} Normal 0.450-4.500 Compr ehensive Internal Medicine Work Phone: Comment on above: PATIENT WAS FASTINGP ERFORMED BY: RUBEN [facility] Ffzyna60[address] RoadDublin [place] [id number] URINALYSIS, W/ MICRO ([id number]) Ordered By: Refrigeration Insulator on 05-31-2016 Appearance Nom (U) Clear Normal Compre hensive Internal Medicine Work Phone: Comment on above: PATIENT WAS FASTINGP ERFORMED BY: RUBEN [facility] Ujqdnn3574 [address] RoadDublin [place] [id number] Bilirubin Ql (U) Negative Normal Comprehe nsive Internal Medicine Work Phone: Comment on above: PATIENT WAS FASTINGP ERFORMED BY: RUBEN [facility] Hcyged5[address] RoadDublin [place] [id number] Bilirubin Ql (U) Negative Normal Comprehe nsive Internal Medicine; [facility] Work Phone: Comment on above: PATIENT WAS FASTINGP ERFORMED BY: CB [facility] Jwslwh75[address] RoadDublin [place] [id number] Color Nom (U) Yellow Normal Comprehensi ve Internal Medicine Work Phone: Comment on above: PATIENT WAS FASTINGP ERFORMED BY: CB [facility] Thnzoh2565 [address] RoadDublin [place] [id number] Glucose Ql (U) Negative Normal Comprehens иван Internal Medicine Work Phone: Comment on above: PATIENT WAS FASTINGP ERFORMED BY: CB [facility] Msyeqd2[address] RoadDublin [place] [id number] Glucose Ql (U) Negative Normal Comprehens иван Internal Medicine; [facility] Work Phone: Comment on above: PATIENT WAS FASTINGP ERFORMED BY: RUBEN LabParker TrevinoAsavrc[address] RoadDublin [place] [id number] Hemoglobin Ql (U) Negative Normal Compreh ensive Internal Medicine Work Phone: Comment on above: PATIENT WAS FASTINGP ERFORMED BY: RUBEN LabCohiro TrevinoJuumrn4[address] RoadDublin [place] [id number] Hemoglobin Ql (U) Negative Normal Compreh ensive Internal Medicine; [facility] Work Phone: Comment on above: PATIENT WAS FASTINGP ERFORMED BY: RUBEN Trevinolin[address] RoadDublin [place] [id number] Hemoglobin Test strip Ql (U) Negative Normal [facility] Work Phone: Ketones Ql (U) Negative Normal Comprehens иван Internal Medicine Work Phone: Comment on above: PATIENT WAS FASTINGP ERFORMED BY: RUBEN Trevinolin[address] RoadDublin [place] [id number] Ketones Ql (U) Negative Normal Comprehens иван Internal Medicine; [facility] Work Phone: Comment on above: PATIENT WAS FASTINGP ERFORMED BY: RUBEN Trevinolin[address] RoadDublin [place] [id number] Leukocyte esterase Test strip Ql (U) Negative Normal [facility] Work Phone: Comment on above: PATIENT WAS FASTINGP ERFORMED BY: RUBEN LabCohiro TrevinoAmnegj2[address] RoadDublin [place] [id number] Leukocyte esterase Test strip Ql (U) Negative Normal [facility]; [facility] Work Phone: Comment on above: PATIENT WAS FASTINGP ERFORMED BY: RUBEN [facility] Ammtxx9141 [address] RoadDublin [place] [id number] Microscopic observation LM Nom (Urine sed) MICRON Normal [facility] Work Phone: Comment on above: Microscopic follows if indicated. PATIENT WAS FASTINGP ERFORMED BY: RUBEN [facility] Udeuwl9654 [address] RoadDublin [place] [id number] Microscopic observation LM Nom (Urine sed) See below: Normal [facility] Work Phone: Comment on above: Microscopic was evita cated and was performed. PATIENT WAS FASTINGP ERFORMED BY: RUBEN [facility] Jczddg6184 [address] RoadDublin [place] [id number] Nitrite Ql (U) Negative Normal Comprehens иван Internal Medicine Work Phone: Comment on above: PATIENT WAS FASTINGP ERFORMED BY: RUBEN [facility] Edgpwb54[address] RoadDublin [place] [id number] Nitrite Ql (U) Negative Normal Comprehens иван Internal Medicine; [facility] Work Phone: Comment on above: PATIENT WAS FASTINGP ERFORMED BY: RUBEN [facility] Lfxoto9568 [address] RoadDublin [place] [id number] Nitrite Test strip Ql (U) Negative Normal [facility] Work Phone: pH (U) 7.0 [pH] Normal 5.0-7.5 [facility] Work Phone: Comment on above: PATIENT WAS FASTINGP ERFORMED BY: RUBEN [facility] Kmyqhf3519 [address] RoadDublin [place] [id number] pH Test strip (U) 7.0 [pH] Normal 5.0-7.5 Compreh ensive Internal Medicine Work Phone: Protein Ql (U) Negative Normal Comprehens иван Internal Medicine Work Phone: Comment on above: PATIENT WAS FASTINGP ERFORMED BY: RUBEN [facility] Biwjnc9591 [address] RoadDublin [place] [id number] Protein Ql (U) Negative Normal Comprehens иван Internal Medicine; [facility] Work Phone: Comment on above: PATIENT WAS FASTINGP ERFORMED BY: RUBEN [facility] Ivmrdc8140 [address] RoadDublin [place] [id number] Protein Test strip Ql (U) Negative Normal [facility] Work Phone: Specific gravity Relative Density (U) 1.010 1 Normal 1.005-1.030 Comprehensi ve Internal Medicine Work Phone: Comment on above: PATIENT WAS FASTINGP ERFORMED BY: [facility] On WheelsBristol-Myers Squibb Children's HospitalMseryf3491 [facility] [id number] Urobilinogen (U) [Mass/Vol] 0.2 mg/dL Normal 0.2-1.0 [facility]; [facility] Work Phone: Comment on above: PATIENT WAS FASTINGP ERFORMED BY: [facility] Nvpsuc[address] [facility] [id number] Urobilinogen Test strip mass conc (U) 0.2 mg/dL Normal 0.2-1.0 Comprehensiv e Internal Medicine Work Phone: Comment on above: PATIENT WAS FASTINGP ERFORMED BY: [employer] Jjzndd1556 [facility] [id number] PAP I-G w/rfx hrHPVOrdered B y: Refrigeration Insulator on 05-01-2016 COMM . Normal [facility] Work Phone: HPV HC,HGH RISK Negative Normal Comprehen sive Internal Medicine Work Phone: Comment on above: This high-risk HPV t est detects thirteen high-risk types(16/18/31/33/35/39/45/51/52/56/58/59/68) withoutdifferentiation.Performed at: [facility] Immun[facility] [place] [id number] Director: Patrizia Lovelace MD, Phone: [phone] at: [address] [id number] Director: Bess Cross MD, Phone: [phone] at: =[facility] [address] [id number] Director: Bess Cross MD, Phone: [phone] PAPSMR Comment Normal [facility] Work Phone: Comment on above: The Pap smear is a s creening test designed to aid in thedetection of premalignant and malignant conditions of theuterine cervix. It is not a diagnostic procedure andshould not be used as the sole means of detecting cervicalcancer. Both false-positive and false-negative reports dooccur. See below for HPV te sting results. Patrizia Lovelace MD, Pathologist Satisfactory for josé luation. Endocervical and/or squamous metaplasticcells (endocervical component) are present. EPITHELIAL CELL ABNO RMALITY.ATYPICAL SQUAMOUS CELLS OF UNDETERMINED SIGNIFICANCE. Jos Patterson [facility] otechnologist (ASCP) This liquid based Th inPrep(R) pap test was screened withthe use of an image guided system. Protein mass conc Comment Normal Compreh ensive Internal Medicine Work Phone: Comment on above: R87.610 CALCIFIDIOL (19950) VIT D 25 Ordered By: Refrigeration Insulator on 12-01-2015 25-Hydroxyvitamin D2+25-Hydroxyvitamin D3 mass conc 54.4 ng/mL Normal 30.0-100.0 [facility] Work Phone: Comment on above: Vitamin D deficiency has been defined by the [place] of[place]icine and an Endocrine Society practice guideline as alevel of serum 25-OH vitamin D less than 20 ng/mL (1,2).The Endocrine Society went on to further define vitamin Dinsufficiency as a level between 21 and 29 ng/mL (2).1. IOM ([place] of Medicine). 2010. Dietary reference intakes for calcium and D. [place]: The National Academies Press.2. Krystal MF, Ashtyn NC, Cassandra FLEMING, et al. Evaluation, treatment, and prevention of vitamin D deficiency: an Endocrine Society clinical practice guideline. JCEM. 2010; 96(7):1911-30. PATIENT WAS FASTINGP ERFORMED BY: TheSquareFoot[address] [facility] [id number] CBC W/AUTO DIFF WBC (74744)O rdered By: Refrigeration Insulator on 12-01-2015 Basophils (Bld) [#/Vol] 0.0 {x10E3/uL} Normal 0.0-0.2 [facility] Work Phone: Comment on above: PATIENT WAS FASTINGP ERFORMED BY: Shopcadeox RoadDublin [place] [id number] Information: [id number] Basophils (Bld) [#/Vol] 0.0 10*3/uL Normal 0.0-0.2 [facility]; [facility] Work Phone: Comment on above: PATIENT WAS FASTINGP ERFORMED BY: [address] [id number] Information: [id number] Basophils Auto #/vol (Bld) 0.0 {x10E3/uL} Normal 0.0-0.2 [facility] Work Phone: Basophils/100 WBC (Bld) 1 % Normal [facility] Work Phone: Comment on above: PATIENT WAS FASTINGP ERFORMED BY: [address] [id number] Information: [id number] Basophils/100 WBC Auto (Bld) 1 % Normal [facility] Work Phone: Eosinophils (Bld) [#/Vol] 0.1 {x10E3/uL} Normal 0.0-0.4 [facility] Work Phone: Comment on above: PATIENT WAS FASTINGP ERFORMED BY: [address] [id number] Information: [id number] Eosinophils (Bld) [#/Vol] 0.1 10*3/uL Normal 0.0-0.4 [facility]; [facility] Work Phone: Comment on above: PATIENT WAS FASTINGP ERFORMED BY: [place] [id number] [facility] [id number] Information: [id number] Eosinophils Auto #/vol (Bld) 0.1 {x10E3/uL} Normal 0.0-0.4 [facility] Work Phone: Eosinophils/100 WBC (Bld) 2 % Normal [facility] Work Phone: Comment on above: PATIENT WAS FASTINGP ERFORMED BY: [place] 2507270 [facility] [id number] Information: [id number] Eosinophils/100 WBC Auto (Bld) 2 % Normal [facility] Work Phone: Erythrocyte distribution width (RBC) [Ratio] 13.2 % Normal 12.3-15.4 [facility] Work Phone: Comment on above: PATIENT WAS FASTINGP ERFORMED BY: [address] [id number] Information: [id number] Erythrocyte distribution width Auto Ratio (RBC) 13.2 % Normal 12.3-15.4 [facility] Work Phone: Hematocrit (Bld) [Volume fraction] 37.0 % Normal 34.0-46.6 [facility] Work Phone: Comment on above: PATIENT WAS FASTINGP ERFORMED BY: [address] [id number] Information: [id number] Hematocrit Auto Volume Fraction (Bld) 37.0 % Normal 34.0-46.6 [facility] Internal Medicine Work Phone: Hemoglobin mass conc (Bld) 12.0 g/dL Normal 11.1-15.9 [facility] Work Phone: Comment on above: PATIENT WAS FASTINGP ERFORMED BY: [place] [id number] [facility] [id number] Information: [id number] Immature granulocytes #/vol (Bld) 0.0 {x10E3/uL} Normal 0.0-0.1 [facility] Work Phone: Comment on above: PATIENT WAS FASTINGP ERFORMED BY: [place] 2507270 [facility] [id number] Information: [id number] Immature granulocytes (Bld) [#/Vol] 0.0 10*3/uL Normal 0.0-0.1 [facility]; [facility] Work Phone: Comment on above: PATIENT WAS FASTINGP ERFORMED BY: RUBEN Cerda [facility] [id number] Information: [id number] Immature granulocytes/100 WBC (Bld) 0 % Normal [facility] Work Phone: Comment on above: PATIENT WAS FASTINGP ERFORMED BY: RUBEN Andrew Aqsxas[address] [id number] Information: [id number] Lymphocytes (Bld) [#/Vol] 2.1 {x10E3/uL} Normal 0.7-3.1 [facility] Work Phone: Comment on above: PATIENT WAS FASTINGP ERFORMED BY: [address] [id number] Information: [id number] Lymphocytes (Bld) [#/Vol] 2.1 10*3/uL Normal 0.7-3.1 [facility]; [facility] Work Phone: Comment on above: PATIENT WAS FASTINGP ERFORMED BY: RUBEN Trevinolin6370 [facility] [id number] Information: [id number] Lymphocytes Auto #/vol (Bld) 2.1 {x10E3/uL} Normal 0.7-3.1 [facility] Work Phone: Lymphocytes/100 WBC (Bld) 36 % Normal [facility] Work Phone: Comment on above: PATIENT WAS FASTINGP ERFORMED BY: [address] [id number] Information: [id number] Lymphocytes/100 WBC Auto (Bld) 36 % Normal [facility] Work Phone: MCH (RBC) [Entitic mass] 31.0 pg Normal 26.6-33.0 [facility] Work Phone: Comment on above: PATIENT WAS FASTINGP ERFORMED BY: [place] [id number] [facility] [id number] Information: [id number] MCH Auto Entitic mass (RBC) 31.0 pg Normal 26.6-33.0 [facility] Internal Medicine Work Phone: MCHC (RBC) [Mass/Vol] 32.4 g/dL Normal 31.5-35.7 [facility] Internal Medicine Work Phone: Comment on above: PATIENT WAS FASTINGP ERFORMED BY: [address] [id number] Information: [id number] MCHC Auto mass conc (RBC) 32.4 g/dL Normal 31.5-35.7 [facility] Internal Medicine Work Phone: MCV (RBC) [Entitic vol] 96 fL Normal 79-97 [facility] Work Phone: Comment on above: PATIENT WAS FASTINGP ERFORMED BY: [address] [id number] Information: [id number] MCV Auto Entitic volume (RBC) 96 fL Normal 79-97 [facility] Internal Medicine Work Phone: Monocytes (Bld) [#/Vol] 0.5 {x10E3/uL} Normal 0.1-0.9 [facility] Internal Medicine Work Phone: Comment on above: PATIENT WAS FASTINGP ERFORMED BY: [place] [id number] [facility] [id number] Information: [id number] Monocytes (Bld) [#/Vol] 0.5 10*3/uL Normal 0.1-0.9 [facility] Internal Medicine; [facility] Work Phone: Comment on above: PATIENT WAS FASTINGP ERFORMED BY: [place] [id number] [facility] [id number] Information: [id number] Monocytes Auto #/vol (Bld) 0.5 {x10E3/uL} Normal 0.1-0.9 [facility] Work Phone: Monocytes/100 WBC (Bld) 8 % Normal [facility] Work Phone: Comment on above: PATIENT WAS FASTINGP ERFORMED BY: RUBEN Amaro6370 [facility] [id number] Information: [id number],[id number] Monocytes/100 WBC Auto (Bld) 8 % Normal [facility] Work Phone: Neutrophils (Bld) [#/Vol] 3.0 {x10E3/uL} Normal 1.4-7.0 [facility] Work Phone: Comment on above: PATIENT WAS FASTINGP ERFORMED BY: RUBEN Trevinolin6370 [facility] [id number] Information: [id number],[id number] Neutrophils (Bld) [#/Vol] 3.0 10*3/uL Normal 1.4-7.0 [facility]; [facility] Work Phone: Comment on above: PATIENT WAS FASTINGP ERFORMED BY: RUBEN Trevinolin6370 [facility] [id number] Information: [id number] Neutrophils Auto #/vol (Bld) 3.0 {x10E3/uL} Normal 1.4-7.0 [facility] Work Phone: Neutrophils/100 WBC (Bld) 53 % Normal [facility] Work Phone: Comment on above: PATIENT WAS FASTINGP ERFORMED BY: RUBEN [place] [id number] [facility] [id number] Information: [id number] Neutrophils/100 WBC Auto (Bld) 53 % Normal [facility] Work Phone: Platelets (Bld) [#/Vol] 338 {x10E3/uL} Normal 150-379 [facility] Work Phone: Comment on above: PATIENT WAS FASTINGP ERFORMED BY: [facility]6370 [facility] [id number] Information: [id number] Platelets (Bld) [#/Vol] 338 10*3/uL Normal 150-379 [facility]; [facility] Work Phone: Comment on above: PATIENT WAS FASTINGP ERFORMED BY: [place] [id number] [facility] [id number] Information: [id number] Platelets Auto #/vol (Bld) 338 {x10E3/uL} Normal 150-379 [facility] Work Phone: RBC (Bld) [#/Vol] 3.87 {x10E6/uL} Normal 3.77-5.28 [facility] Internal Medicine Work Phone: Comment on above: PATIENT WAS FASTINGP ERFORMED BY: [place] [id number] [facility] [id number] Information: [id number] RBC (Bld) [#/Vol] 3.87 10*6/uL Normal 3.77-5.28 [facility] Internal Medicine; [facility] Internal Medicine Work Phone: Comment on above: PATIENT WAS FASTINGP ERFORMED BY: [facility]6370 [facility] [id number] Information: [id number] RBC Auto #/vol (Bld) 3.87 {x10E6/uL} Normal 3.77-5.28 [facility] Internal Medicine Work Phone: WBC (Bld) [#/Vol] 5.7 {x10E3/uL} Normal 3.4-10.8 [facility] Internal Medicine Work Phone: Comment on above: PATIENT WAS FASTINGP ERFORMED BY: [facility]6370 [facility] [id number] Information: [id number] WBC (Bld) [#/Vol] 5.7 10*3/uL Normal 3.4-10.8 [facility] Internal Medicine; [facility] Work Phone: Comment on above: PATIENT WAS FASTINGP ERFORMED BY: RUBEN [facility] Psnqxz0578 [address] RoadDublin [place] [id number] Information: [id number] WBC Auto #/vol (Bld) 5.7 {x10E3/uL} Normal 3.4-10.8 [facility] Work Phone: METABOLIC PANEL, COMPREHENSI VE ([id number])Ordered By: Refrigeration Insulator on 12-01-2015 Albumin mass conc 4.4 g/dL Normal 3.5-5.5 Compreh [facility] Internal Medicine Work Phone: Comment on above: PATIENT WAS FASTINGP ERFORMED BY: [facility] Ebpvxr5749 [address] RoadDublin [place] [id number] Albumin/Globulin mass ratio 1.8 {ratio} Normal 1.1-2.5 [facility] Work Phone: Comment on above: PATIENT WAS FASTINGP ERFORMED BY: [facility] Equerh2387 [address] RoadDublin [place] [id number] ALP [Catalytic activity/Vol] 67 U/L Normal 39-117 [facility]; [facility] Internal Medicine Work Phone: Comment on above: PATIENT WAS FASTINGP ERFORMED BY: [facility] Spreqc5004 [address]Dublin [place] [id number] ALP enzyme act/vol 67 [iU]/L Normal 39-117 [facility] Internal Medicine Work Phone: Comment on above: PATIENT WAS FASTINGP ERFORMED BY: [facility] Qxbsjp0647 [address] RoadDublin [place] [id number] ALT [Catalytic activity/Vol] 14 U/L Normal 0-32 [facility]; [facility] Internal Medicine Work Phone: Comment on above: PATIENT WAS FASTINGP ERFORMED BY: [facility] Gkylnr6826 [address] RoadDublin [place] [id number] ALT enzyme act/vol 14 [iU]/L Normal 0-32 [facility] Internal Medicine Work Phone: Comment on above: PATIENT WAS FASTINGP ERFORMED BY: RUBEN LabCohiro Ncybep2702 [address]Dublin [place] [id number] AST [Catalytic activity/Vol] 20 U/L Normal 0-40 [facility]; [facility] Work Phone: Comment on above: PATIENT WAS FASTINGP ERFORMED BY: RUBEN [facility] Qsujhv7853 [address] RoadDublin [place] [id number] AST enzyme act/vol 20 [iU]/L Normal 0-40 Compre hensive Internal Medicine Work Phone: Comment on above: PATIENT WAS FASTINGP ERFORMED BY: RUBEN [facility] Kilpuj6856 [address] RoadDublin [place] [id number] Bilirubin [Mass/Vol] mg/dL Normal 0.0-1.2 Comp rehensive Internal Medicine; [facility] Internal Medicine Work Phone: Comment on above: PATIENT WAS FASTINGP ERFORMED BY: RUBEN Trevinolin6370 [address]Dublin [place] [id number] Bilirubin mass conc mg/dL Normal 0.0-1.2 [facility] Work Phone: Comment on above: PATIENT WAS FASTINGP ERFORMED BY: RUBEN Lorriehiro TrevinoPylvoz3117 [address] RoadDublin [place] [id number] Calcium mass conc 9.1 mg/dL Normal 8.7-10.2 Compreh [facility] Work Phone: Comment on above: PATIENT WAS FASTINGP ERFORMED BY: RUBEN LabCohiro TrevinoXrbior0740 [address]Dublin [place] [id number] Chloride molar conc 99 mmol/L Normal 97-108 Compr ehensive Internal Medicine Work Phone: Comment on above: PATIENT WAS FASTINGP ERFORMED BY: RUBEN [facility] Frtduq8774 [address] RoadDublin [place] [id number] CO2 molar conc 26 mmol/L Normal 18-29 Comprehens иван Internal Medicine Work Phone: Comment on above: PATIENT WAS FASTINGP ERFORMED BY: RUBEN [facility] Qymjle0424 [address] RoadDublin [place] [id number] Creatinine mass conc 0.81 mg/dL Normal 0.57-1.00 Comp rehensive Internal Medicine Work Phone: Comment on above: PATIENT WAS FASTINGP ERFORMED BY: RUBEN [facility] Buavfj0103 [address] Roadblin [place] [id number] GFR/1.73 sq M predicted among blacks CKD-EPI vol rate/area (S/P/Bld) 100 mL/min/1.73 Normal Comprehensiv e Internal Medicine Work Phone: Comment on above: PATIENT WAS FASTINGP ERFORMED BY: RUBEN [facility] Knlyza2333 Sh[address] RoadUnc Health Pardeein [place] [id number] GFR/1.73 sq M predicted among non-blacks CKD-EPI vol rate/area (S/P/Bld) 87 mL/min/1.73 Normal [facility] Work Phone: Comment on above: PATIENT WAS FASTINGP ERFORMED BY: RUBEN [facility] Kyajdp[address] [facility] [id number] Globulin (S) [Mass/Vol] 2.5 g/dL Normal 1.5-4.5 [facility] Work Phone: Comment on above: PATIENT WAS FASTINGP ERFORMED BY: [facility] Rwyrws9735 [facility] [id number] Globulin Calculated mass conc (S) 2.5 g/dL Normal 1.5-4.5 [facility] Work Phone: Glucose mass conc 86 mg/dL Normal 65-99 Compreh ensive Internal Medicine Work Phone: Comment on above: PATIENT WAS FASTINGP ERFORMED BY: [facility] Zocyce0451 [facility] [place] [id number] Potassium molar conc 4.3 mmol/L Normal 3.5-5.2 Comp rehensive Internal Medicine Work Phone: Comment on above: PATIENT WAS FASTINGP ERFORMED BY: [facility] Buplkz1225 [facility]in [place] [id number] Protein mass conc 6.9 g/dL Normal 6.0-8.5 Compreh ensive Internal Medicine Work Phone: Comment on above: PATIENT WAS FASTINGP ERFORMED BY: RUBEN [facility] Tnsueq9566 [address] RoadDublin [place] [id number] Sodium molar conc 141 mmol/L Normal 134-144 Compreh ensive Internal Medicine Work Phone: Comment on above: PATIENT WAS FASTINGP ERFORMED BY: RUBEN [facility] Ojxmzo9618 [address] RoadDublin [place] [id number] Urea nitrogen mass conc 12 mg/dL Normal 6- [facility] Work Phone: Comment on above: PATIENT WAS FASTINGP ERFORMED BY: RUBEN [facility] Mpqkbq0198 [address]Dublin [place] [id number] Urea nitrogen/Creatinine mass ratio 15 mg/mg Normal 9- [facility] Work Phone: Comment on above: PATIENT WAS FASTINGP ERFORMED BY: RUBEN [facility] Meayfc5391 [address] RoadDuin [place] [id number] MICROALBUMINOrdered By: Syst em Business Sales Consultant on 12-01-2015 Albumin DL <= 20 mg/L mass conc (U) 10.0 ug/mL Normal [facility] Work Phone: Comment on above: Please note refere nce interval change PATIENT WAS FASTINGP ERFORMED BY: RUBEN [facility] Ryrzyi3474 [address] RoadDublin [place] [id number] Albumin/Creatinine mass ratio (U) 6.0 {mg/g_creat} Normal 0.0-30.0 [facility] Work Phone: Comment on above: PATIENT WAS FASTINGP ERFORMED BY: [facility] Jaijdl6979 [address] RoadDublin [place] [id number] Creatinine mass conc (U) 167.1 mg/dL Normal [facility] Work Phone: Comment on above: Please note refere nce interval change PATIENT WAS FASTINGP ERFORMED BY: RUBEN [facility] Xtjumq1563 [address] RoadDublin [place] [id number] Microscopic ExaminationOrder ed By: Refrigeration Insulator on 12-01-2015 Bacteria LM.HPF #/area (Urine sed) Few Normal [facility] Work Phone: Epithelial cells LM.HPF #/area (Urine sed) 0-10 Normal 0 - 10 [facility] Work Phone: Mucus LM Ql (Urine sed) Present Normal [facility] Work Phone: RBC LM.HPF #/area (Urine sed) 3-10 Abnormal 0 - 2 [facility] Work Phone: WBC LM.HPF #/area (Urine sed) 0-5 Normal 0 - 5 [facility] Work Phone: TSH ([phone])Ordered By: Syste m Business Sales Consultant on 12-01-2015 Thyrotropin Qn 1.750 {uIU/mL} Normal 0.450-4.500 Compr ehensive Internal Medicine Work Phone: Comment on above: PATIENT WAS FASTINGP ERFORMED BY: RUBEN [facility] Dcqiap6520 [address] RoadDublin [place] [id number] URINALYSIS, W/ MICRO ([id number]) Ordered By: Refrigeration Insulator on 12-01-2015 Appearance Nom (U) Clear Normal Compre hensive Internal Medicine Work Phone: Comment on above: PATIENT WAS FASTINGP ERFORMED BY: RUBEN [facility] Jbprgl7142 [address] RoadDublin [place] [id number] Bilirubin Ql (U) Negative Normal Comprehe nsive Internal Medicine Work Phone: Comment on above: PATIENT WAS FASTINGP ERFORMED BY: RUBEN [facility] Tyqhxc4072 [address] RoadDublin [place] [id number] Bilirubin Ql (U) Negative Normal Comprehe nsive Internal Medicine; [facility] Work Phone: Comment on above: PATIENT WAS FASTINGP ERFORMED BY: RUBEN [facility] Ysiwvn7839 [address] RoadDublin [place] [id number] Color Nom (U) Yellow Normal Comprehensi ve Internal Medicine Work Phone: Comment on above: PATIENT WAS FASTINGP ERFORMED BY: RUBEN [facility] Vykbbo2033 [address] RoadDublin [place] [id number] Glucose Ql (U) Negative Normal Comprehens иван Internal Medicine Work Phone: Comment on above: PATIENT WAS FASTINGP ERFORMED BY: RUBEN LabParker Amaro6370 [address] RoadDublin [place] [id number] Glucose Ql (U) Negative Normal Comprehens иван Internal Medicine; [facility] Work Phone: Comment on above: PATIENT WAS FASTINGP ERFORMED BY: RUBEN Amaro6370 [address]Dublin [place] [id number] Hemoglobin Ql (U) Negative Normal Compreh ensive Internal Medicine Work Phone: Comment on above: PATIENT WAS FASTINGP ERFORMED BY: RUBEN LabParker TrevinoQvbiml0610 [address] RoadDublin [place] [id number] Hemoglobin Ql (U) Negative Normal Compreh ensive Internal Medicine; [facility] Work Phone: Comment on above: PATIENT WAS FASTINGP ERFORMED BY: RUBEN Amaro6370 [address] [place] [id number] Hemoglobin Test strip Ql (U) Negative Normal [facility] Work Phone: Ketones Ql (U) Negative Normal Comprehens иван Internal Medicine Work Phone: Comment on above: PATIENT WAS FASTINGP ERFORMED BY: RUBEN Amaro6370 [address]Dublin [place] [id number] Ketones Ql (U) Negative Normal Comprehens иван Internal Medicine; [facility] Work Phone: Comment on above: PATIENT WAS FASTINGP ERFORMED BY: RUBEN Trevinolin6370 [address]Dublin [place] [id number] Leukocyte esterase Test strip Ql (U) Negative Normal [facility] Work Phone: Comment on above: PATIENT WAS FASTINGP ERFORMED BY: RUBEN LabParker TrevinoZxhwcf1348 [address] RoadDublin [place] [id number] Leukocyte esterase Test strip Ql (U) Negative Normal [facility]; [facility] Work Phone: Comment on above: PATIENT WAS FASTINGP ERFORMED BY: RUBEN Trevinolin6370 [address]Dublin [place] [id number] Microscopic observation LM Nom (Urine sed) See below: Normal [facility] Work Phone: Comment on above: Microscopic was evita cated and was performed. PATIENT WAS FASTINGP ERFORMED BY: RUBEN Amaro6370 [address]Dublin [place] [id number] Microscopic observation LM Nom (Urine sed) MICRON Normal [facility] Work Phone: Comment on above: Microscopic follows if indicated. PATIENT WAS FASTINGP ERFORMED BY: RUBEN Amaro6370 [address] [place] [id number] Nitrite Ql (U) Negative Normal Comprehens иван Internal Medicine Work Phone: Comment on above: PATIENT WAS FASTINGP ERFORMED BY: RUBEN Amaro6370 [address] [place] [id number] Nitrite Ql (U) Negative Normal Comprehens иван Internal Medicine; [facility] Work Phone: Comment on above: PATIENT WAS FASTINGP ERFORMED BY: RUBEN Amaro6370 [address] [place] [id number] Nitrite Test strip Ql (U) Negative Normal [facility] Work Phone: pH (U) 6.5 [pH] Normal 5.0-7.5 [facility] Work Phone: Comment on above: PATIENT WAS FASTINGP ERFORMED BY: RUBEN Trevinolin6370 [address] [place] [id number] pH Test strip (U) 6.5 [pH] Normal 5.0-7.5 Compreh ensive Internal Medicine Work Phone: Protein Ql (U) Negative Normal Comprehens иван Internal Medicine Work Phone: Comment on above: PATIENT WAS FASTINGP ERFORMED BY: RUBEN Trevinolin6370 [address]Dublin [place] [id number] Protein Ql (U) Negative Normal Comprehens иван Internal Medicine; [facility] Work Phone: Comment on above: PATIENT WAS FASTINGP ERFORMED BY: RUBEN Trevinolin6370 [address]Dublin [place] [id number] Protein Test strip Ql (U) Negative Normal [facility] Work Phone: Specific gravity Relative Density (U) 1.023 1 Normal 1.005-1.030 Comprehensi ve Internal Medicine Work Phone: Comment on above: PATIENT WAS FASTINGP ERFORMED BY: Tiggly [facility] Epttrt1098 [address] RoadDublin [place] [id number] Urobilinogen (U) [Mass/Vol] 0.2 mg/dL Normal 0.2-1.0 [facility]; [facility] Work Phone: Comment on above: PATIENT WAS FASTINGP ERFORMED BY: Tiggly [facility] Lpwztz6466 [address] RoadDublin [place] [id number] Urobilinogen Test strip mass conc (U) 0.2 mg/dL Normal 0.2-1.0 Comprehensiv e Internal Medicine Work Phone: Comment on above: PATIENT WAS FASTINGP ERFORMED BY: CB [facility] Suxroz5034 [address] RoadDublin [place] [id number] CALCIFIDIOL (99231) VIT D 25 Ordered By: Refrigeration Insulator on 06-02-2015 25-Hydroxyvitamin D2+25-Hydroxyvitamin D3 mass conc 55.9 ng/mL Normal 30.0-100.0 [facility] Internal Medicine Work Phone: Comment on above: Vitamin D deficiency has been defined by the [place] ofTrihealth Mccull[facility]Hy[facility] Memorial Hospitalcine and an Endocrine Society practice guideline as alevel of serum 25-OH vitamin D less than 20 ng/mL (1,2).The Endocrine Society went on to further define vitamin Dinsufficiency as a level between 21 and 29 ng/mL (2).1. IOM ([place] of Medicine). 2010. Dietary reference intakes for calcium and D. [place]: The National Academies Press.2. Krystal MF, Ashtyn GREENBERG, Cassandra FLEMING, et al. Evaluation, treatment, and prevention of vitamin D deficiency: an Endocrine Society clinical practice guideline. JCEM. 2010; 96(7):1911-30. PATIENT WAS FASTINGP ERFORMED BY: Tiggly [facility] Zbpgtw6939 [address] RoadDublin [place] [id number] CBC W/AUTO DIFF WBC (75150)O rdered By: Refrigeration Insulator on 06-02-2015 Basophils (Bld) [#/Vol] 0.0 {x10E3/uL} Normal 0.0-0.2 [facility] Work Phone: Comment on above: PATIENT WAS FASTINGP ERFORMED BY: [address] [id number] Information: [id number] Basophils (Bld) [#/Vol] 0.0 10*3/uL Normal 0.0-0.2 [facility]; [facility] Work Phone: Comment on above: PATIENT WAS FASTINGP ERFORMED BY: RUBEN [address] [id number] Information: [id number] Basophils Auto #/vol (Bld) 0.0 {x10E3/uL} Normal 0.0-0.2 [facility] Work Phone: Basophils/100 WBC (Bld) 0 % Normal [facility] Work Phone: Comment on above: PATIENT WAS FASTINGP ERFORMED BY: [address] [id number] Information: [id number] Basophils/100 WBC Auto (Bld) 0 % Normal [facility] Work Phone: Eosinophils (Bld) [#/Vol] 0.2 {x10E3/uL} Normal 0.0-0.4 [facility] Work Phone: Comment on above: PATIENT WAS FASTINGP ERFORMED BY: [place] 2507270 [facility] [id number] Information: [id number] Eosinophils (Bld) [#/Vol] 0.2 10*3/uL Normal 0.0-0.4 [facility]; [facility] Work Phone: Comment on above: PATIENT WAS FASTINGP ERFORMED BY: [address] [place] [id number] Information: [id number] Eosinophils Auto #/vol (Bld) 0.2 {x10E3/uL} Normal 0.0-0.4 [facility] Work Phone: Eosinophils/100 WBC (Bld) 2 % Normal [facility] Work Phone: Comment on above: PATIENT WAS FASTINGP ERFORMED BY: [address] [id number] Information: [id number] Eosinophils/100 WBC Auto (Bld) 2 % Normal [facility] Work Phone: Erythrocyte distribution width (RBC) [Ratio] 13.2 % Normal 12.3-15.4 [facility] Work Phone: Comment on above: PATIENT WAS FASTINGP ERFORMED BY: [address] [id number] Information: [id number] Erythrocyte distribution width Auto Ratio (RBC) 13.2 % Normal 12.3-15.4 [facility] Work Phone: Hematocrit (Bld) [Volume fraction] 38.3 % Normal 34.0-46.6 [facility] Internal Medicine Work Phone: Comment on above: PATIENT WAS FASTINGP ERFORMED BY: [place] [id number] [facility] [id number] Information: [id number] Hematocrit Auto Volume Fraction (Bld) 38.3 % Normal 34.0-46.6 [facility] Internal Medicine Work Phone: Hemoglobin mass conc (Bld) 12.6 g/dL Normal 11.1-15.9 [facility] Work Phone: Comment on above: PATIENT WAS FASTINGP ERFORMED BY: [place] [id number] [facility] [id number] Information: [id number] Immature granulocytes #/vol (Bld) 0.0 {x10E3/uL} Normal 0.0-0.1 [facility] Work Phone: Comment on above: PATIENT WAS FASTINGP ERFORMED BY: RUBEN Lorrie Mgpbmn6204 [facility] [id number] Information: [id number] Immature granulocytes (Bld) [#/Vol] 0.0 10*3/uL Normal 0.0-0.1 [facility]; [facility] Work Phone: Comment on above: PATIENT WAS FASTINGP ERFORMED BY: [address] [id number] Information: [id number] Immature granulocytes/100 WBC (Bld) 0 % Normal [facility] Work Phone: Comment on above: PATIENT WAS FASTINGP ERFORMED BY: [address] [id number] Information: [id number] Lymphocytes (Bld) [#/Vol] 1.9 {x10E3/uL} Normal 0.7-3.1 [facility] Work Phone: Comment on above: PATIENT WAS FASTINGP ERFORMED BY: RUBEN [facility]Research [facility] Ryxwgw8[address] [id number] Information: [id number] Lymphocytes (Bld) [#/Vol] 1.9 10*3/uL Normal 0.7-3.1 [facility]; [facility] Work Phone: Comment on above: PATIENT WAS FASTINGP ERFORMED BY: [place] 2507270 [facility] [id number] Information: [id number] Lymphocytes Auto #/vol (Bld) 1.9 {x10E3/uL} Normal 0.7-3.1 [facility] Work Phone: Lymphocytes/100 WBC (Bld) 27 % Normal [facility] Work Phone: Comment on above: PATIENT WAS FASTINGP ERFORMED BY: [address]Dublin [place] [id number] Information: [id number] Lymphocytes/100 WBC Auto (Bld) 27 % Normal [facility] Work Phone: MCH (RBC) [Entitic mass] 31.0 pg Normal 26.6-33.0 [facility] Internal Medicine Work Phone: Comment on above: PATIENT WAS FASTINGP ERFORMED BY: [address] [id number] Information: [id number] MCH Auto Entitic mass (RBC) 31.0 pg Normal 26.6-33.0 [facility] Internal Medicine Work Phone: MCHC (RBC) [Mass/Vol] 32.9 g/dL Normal 31.5-35.7 [facility] pre[facility] Medicine Work Phone: Comment on above: PATIENT WAS FASTINGP ERFORMED BY: [address] [id number] Information: [id number] MCHC Auto mass conc (RBC) 32.9 g/dL Normal 31.5-35.7 [facility] Internal Medicine Work Phone: MCV (RBC) [Entitic vol] 94 fL Normal 79-97 [facility] Internal Medicine Work Phone: Comment on above: PATIENT WAS FASTINGP ERFORMED BY: [address] [id number] Information: [id number] MCV Auto Entitic volume (RBC) 94 fL Normal 79-97 [facility] Internal Medicine Work Phone: Monocytes (Bld) [#/Vol] 0.5 {x10E3/uL} Normal 0.1-0.9 [facility] Internal Medicine Work Phone: Comment on above: PATIENT WAS FASTINGP ERFORMED BY: [address] [id number] Information: [id number] Monocytes (Bld) [#/Vol] 0.5 10*3/uL Normal 0.1-0.9 [facility]; [facility] Work Phone: Comment on above: PATIENT WAS FASTINGP ERFORMED BY: RUBEN Amaro6370 [facility] [id number] Information: [id number] Monocytes Auto #/vol (Bld) 0.5 {x10E3/uL} Normal 0.1-0.9 [facility] Work Phone: Monocytes/100 WBC (Bld) 6 % Normal [facility] Work Phone: Comment on above: PATIENT WAS FASTINGP ERFORMED BY: RUBEN Trevinolin6370 [facility] [id number] Information: [id number] Monocytes/100 WBC Auto (Bld) 6 % Normal [facility] Work Phone: Neutrophils (Bld) [#/Vol] 4.5 {x10E3/uL} Normal 1.4-7.0 [facility] Work Phone: Comment on above: PATIENT WAS FASTINGP ERFORMED BY: RUBEN Trevinolin6370 [facility] [id number] Information: [id number] Neutrophils (Bld) [#/Vol] 4.5 10*3/uL Normal 1.4-7.0 [facility]; [facility] Work Phone: Comment on above: PATIENT WAS FASTINGP ERFORMED BY: RUBEN [place] [id number] [facility] [id number] Information: [id number] Neutrophils Auto #/vol (Bld) 4.5 {x10E3/uL} Normal 1.4-7.0 [facility] Work Phone: Neutrophils/100 WBC (Bld) 65 % Normal [facility] Work Phone: Comment on above: PATIENT WAS FASTINGP ERFORMED BY: RUBEN [place] [id number] [facility] [id number] Information: [id number] Neutrophils/100 WBC Auto (Bld) 65 % Normal [facility] Work Phone: Platelets (Bld) [#/Vol] 394 {x10E3/uL} Abnormal 150-379 [facility] Work Phone: Comment on above: PATIENT WAS FASTINGP ERFORMED BY: RUBEN [place] [id number] [facility] [id number] Information: [id number] Platelets (Bld) [#/Vol] 394 10*3/uL Abnormal 150-379 [facility] Internal Medicine; [facility] Work Phone: Comment on above: PATIENT WAS FASTINGP ERFORMED BY: RUBEN [facility] Tsevhb3890 [facility] [id number] Information: [id number] Platelets Auto #/vol (Bld) 394 {x10E3/uL} Abnormal 150-379 [facility] Work Phone: RBC (Bld) [#/Vol] 4.07 {x10E6/uL} Normal 3.77-5.28 [facility] Internal Medicine Work Phone: Comment on above: PATIENT WAS FASTINGP ERFORMED BY: RUBEN Trevinolin6370 [facility] [id number] Information: [id number] RBC (Bld) [#/Vol] 4.07 10*6/uL Normal 3.77-5.28 [facility] Internal Medicine; [facility] Work Phone: Comment on above: PATIENT WAS FASTINGP ERFORMED BY: RUBEN [facility]6370 [facility] [id number] Information: [id number] RBC Auto #/vol (Bld) 4.07 {x10E6/uL} Normal 3.77-5.28 [facility] Work Phone: WBC (Bld) [#/Vol] 7.0 {x10E3/uL} Normal 3.4-10.8 Com prehensive Internal Medicine Work Phone: Comment on above: PATIENT WAS FASTINGP ERFORMED BY: RUBEN [facility] Hamxjz6026 [address]la RoadDublin [place] [id number] Information: [id number] WBC (Bld) [#/Vol] 7.0 10*3/uL Normal 3.4-10.8 [facility] Internal Medicine; [facility] Work Phone: Comment on above: PATIENT WAS FASTINGP ERFORMED BY: RUBEN [facility] Gvvfwg5127 Shukla RoadUnc Health Pardeein [place] [id number] Information: [id number] WBC Auto #/vol (Bld) 7.0 {x10E3/uL} Normal 3.4-10.8 [facility] Work Phone: METABOLIC PANEL, COMPREHENSI VE ([id number])Ordered By: Refrigeration Insulator on 06-02-2015 Albumin mass conc 4.7 g/dL Normal 3.5-5.5 Compreh [facility] Internal Medicine Work Phone: Comment on above: PATIENT WAS FASTINGP ERFORMED BY: RUBEN [facility] Botkqn2782 [address] Roadblin [place] [id number] Albumin/Globulin mass ratio 1.7 {ratio} Normal 1.1-2.5 [facility] Work Phone: Comment on above: PATIENT WAS FASTINGP ERFORMED BY: [facility] Mgibyo[address] [facility] [place] [id number] ALP [Catalytic activity/Vol] 69 U/L Normal 39-117 [facility]; [facility] Internal Medicine Work Phone: Comment on above: PATIENT WAS FASTINGP ERFORMED BY: [facility] Soxghw8486 [address]la RoadDublin [place] [id number] ALP enzyme act/vol 69 [iU]/L Normal 39-117 [facility] Internal Medicine Work Phone: Comment on above: PATIENT WAS FASTINGP ERFORMED BY: [facility] Ytlgkq5113 [address] RoadDublin [place] [id number] ALT [Catalytic activity/Vol] 11 U/L Normal 0-32 [facility]; [facility] Work Phone: Comment on above: PATIENT WAS FASTINGP ERFORMED BY: RUBEN LabCohiro AmaroKcefan[address] [facility] [place] [id number] ALT enzyme act/vol 11 [iU]/L Normal 0-[address] [facility] Internal Medicine Work Phone: Comment on above: PATIENT WAS FASTINGP ERFORMED BY: RUBEN LabCohiro AmaroFrjero[address] [facility] [place] [id number] AST [Catalytic activity/Vol] 18 U/L Normal 0-40 [facility]; [facility] Internal Medicine Work Phone: Comment on above: PATIENT WAS FASTINGP ERFORMED BY: RUBEN LabCohiro TrevinoFkgaed[address] [facility] [place] [id number] AST enzyme act/vol 18 [iU]/L Normal 0-40 [facility] Internal Medicine Work Phone: Comment on above: PATIENT WAS FASTINGP ERFORMED BY: RUBEN LabParker Atxpsr[address] [facility] [id number] Bilirubin mass conc 0.5 mg/dL Normal 0.0-1.2 Compr ensive Internal Medicine Work Phone: Comment on above: PATIENT WAS FASTINGP ERFORMED BY: RUBEN Angy Trevinolin6370 [facility] [id number] Calcium mass conc 10.2 mg/dL Normal 8.7-10.2 Compreh ensive Internal Medicine Work Phone: Comment on above: PATIENT WAS FASTINGP ERFORMED BY: RUBEN [facility] Kvojap[address] [facility] [id number] Chloride molar conc 97 mmol/L Normal 97-108 Compr ehensive Internal Medicine Work Phone: Comment on above: PATIENT WAS FASTINGP ERFORMED BY: RUBEN [facility] Gzajsm[address] [facility] [place] [id number] CO2 molar conc 25 mmol/L Normal 18-29 Comprehens иван Internal Medicine Work Phone: Comment on above: PATIENT WAS FASTINGP ERFORMED BY: RUBEN [facility] Nbnusv9534 [facility] [id number] Creatinine mass conc 0.92 mg/dL Normal 0.57-1.00 Comp rehensive Internal Medicine Work Phone: Comment on above: PATIENT WAS FASTINGP ERFORMED BY: [facility]Research [facility] Jhtzxh5509 [facility] [id number] GFR/1.73 sq M predicted among blacks CKD-EPI vol rate/area (S/P/Bld) 86 mL/min/1.73 Normal Comprehensiv e Internal Medicine Work Phone: Comment on above: PATIENT WAS FASTINGP ERFORMED BY: LabM[facility]6370 [facility] [id number] GFR/1.73 sq M predicted among non-blacks CKD-EPI vol rate/area (S/P/Bld) 74 mL/min/1.73 Normal [facility] Work Phone: Comment on above: PATIENT WAS FASTINGP ERFORMED BY: LabMcl[facility]6370 [facility] [id number] Globulin (S) [Mass/Vol] 2.7 g/dL Normal 1.5-4.5 [facility] Work Phone: Comment on above: PATIENT WAS FASTINGP ERFORMED BY: LabMcl[facility] Region6370 [facility] [id number] Globulin Calculated mass conc (S) 2.7 g/dL Normal 1.5-4.5 [facility] Work Phone: Glucose mass conc 99 mg/dL Normal 65-99 Compreh ensive Internal Medicine Work Phone: Comment on above: PATIENT WAS FASTINGP ERFORMED BY: [facility] Vdayiu6349 [facility] [id number] Potassium molar conc 4.2 mmol/L Normal 3.5-5.2 Comp rehensive Internal Medicine Work Phone: Comment on above: PATIENT WAS FASTINGP ERFORMED BY: [facility]Research [facility] Zdrxnm6956 [facility] [id number] Protein mass conc 7.4 g/dL Normal 6.0-8.5 Compreh ensive Internal Medicine Work Phone: Comment on above: PATIENT WAS FASTINGP ERFORMED BY: RUBEN MelodyParker TrevinoIhkfti[address] [facility]in [place] [id number] Sodium molar conc 141 mmol/L Normal 134-144 Compreh ensive Internal Medicine Work Phone: Comment on above: PATIENT WAS FASTINGP ERFORMED BY: RUBEN Trevinolin6[address] [facility]Sent[facility] [id number] Urea nitrogen mass conc 16 mg/dL Normal 6-24 [facility] Work Phone: Comment on above: PATIENT WAS FASTINGP ERFORMED BY: RUBEN Trevinolin6370 [facility] [id number] Urea nitrogen/Creatinine mass ratio 17 mg/mg Normal 9-23 [facility] Work Phone: Comment on above: PATIENT WAS FASTINGP ERFORMED BY: RUBEN Andrew Wkbfjj6415 [facility] [id number] MICROALBUMINOrdered By: Syst em Business Sales Consultant on 06-02-2015 Albumin DL <= 20 mg/L mass conc (U) 12.8 ug/mL Normal 0.0-17.0 [facility] Work Phone: Comment on above: PATIENT WAS FASTINGP ERFORMED BY: RUBEN Trevinolin6370 [facility] [id number] Albumin/Creatinine mass ratio (U) 7.9 {mg/g_creat} Normal 0.0-30.0 [facility] Work Phone: Comment on above: PATIENT WAS FASTINGP ERFORMED BY: RUBEN LabResearch [facility] Xeqfwg[address] [facility] [id number] Creatinine mass conc (U) 162.7 mg/dL Normal 15.0-278.0 [facility] Work Phone: Comment on above: PATIENT WAS FASTINGP ERFORMED BY: RUBEN Trevinolin6370 [facility] [id number] Microscopic ExaminationOrder ed By: Refrigeration Insulator on 06-02-2015 Bacteria LM.HPF #/area (Urine sed) Few Normal [facility] Work Phone: Epithelial cells LM.HPF #/area (Urine sed) 0-10 Normal 0 - 10 [facility] Work Phone: Mucus LM Ql (Urine sed) Present Normal [facility] Work Phone: RBC LM.HPF #/area (Urine sed) 3-10 Abnormal 0 - 2 [facility] Work Phone: WBC LM.HPF #/area (Urine sed) 0-5 Normal 0 - 5 [facility] Work Phone: TSH ([id number])Ordered By: Syste m Business Sales Consultant on 06-02-2015 Thyrotropin Qn 1.480 {uIU/mL} Normal 0.450-4.500 Compr ehensive Internal Medicine Work Phone: Comment on above: PATIENT WAS FASTINGP ERFORMED BY: RUBEN [facility] Gwllll4574 [address] RoadDublin [place] [id number] URINALYSIS, W/ MICRO ([id number]) Ordered By: Refrigeration Insulator on 06-02-2015 Appearance Nom (U) Clear Normal Compre hensive Internal Medicine Work Phone: Comment on above: PATIENT WAS FASTINGP ERFORMED BY: RUBEN [facility] Lysuru0932 [address] RoadDublin [place] [id number] Bilirubin Ql (U) Negative Normal Comprehe nsive Internal Medicine Work Phone: Comment on above: PATIENT WAS FASTINGP ERFORMED BY: CB [facility] Fvvhpz5277 [address] RoadDublin [place] [id number] Bilirubin Ql (U) Negative Normal Comprehe nsive Internal Medicine; [facility] Work Phone: Comment on above: PATIENT WAS FASTINGP ERFORMED BY: CB [facility] Vftitv0637 [address] RoadDublin [place] [id number] Color Nom (U) Yellow Normal Comprehensi ve Internal Medicine Work Phone: Comment on above: PATIENT WAS FASTINGP ERFORMED BY: CB [facility] Xnjprv8068 [address] RoadDublin [place] [id number] Glucose Ql (U) Negative Normal Comprehens иван Internal Medicine Work Phone: Comment on above: PATIENT WAS FASTINGP ERFORMED BY: RUBEN Amaro6370 [address] RoadDublin [place] [id number] Glucose Ql (U) Negative Normal Comprehens иван Internal Medicine; [facility] Work Phone: Comment on above: PATIENT WAS FASTINGP ERFORMED BY: RUBEN Amaro6370 [address] RoadDublin [place] [id number] Hemoglobin Ql (U) Negative Normal Compreh ensive Internal Medicine Work Phone: Comment on above: PATIENT WAS FASTINGP ERFORMED BY: RUBEN Amaro6370 [address]Dublin [place] [id number] Hemoglobin Ql (U) Negative Normal Compreh ensive Internal Medicine; [facility] Work Phone: Comment on above: PATIENT WAS FASTINGP ERFORMED BY: RUBEN Amaro6370 [address] RoadDublin [place] [id number] Hemoglobin Test strip Ql (U) Negative Normal [facility] Work Phone: Ketones Ql (U) Negative Normal Comprehens иван Internal Medicine Work Phone: Comment on above: PATIENT WAS FASTINGP ERFORMED BY: RUBEN Amaro6370 [address]Dublin [place] [id number] Ketones Ql (U) Negative Normal Comprehens иван Internal Medicine; [facility] Work Phone: Comment on above: PATIENT WAS FASTINGP ERFORMED BY: RUBEN Trevinolin6370 [address] RoadDublin [place] [id number] Leukocyte esterase Test strip Ql (U) Negative Normal [facility] Work Phone: Comment on above: PATIENT WAS FASTINGP ERFORMED BY: RUBEN Amaro6370 [address] RoadDublin [place] [id number] Leukocyte esterase Test strip Ql (U) Negative Normal [facility]; [facility] Work Phone: Comment on above: PATIENT WAS FASTINGP ERFORMED BY: RUBEN Trevinolin6370 [address] RoadDublin [place] [id number] Microscopic observation LM Nom (Urine sed) See below: Normal [facility] Work Phone: Comment on above: Microscopic was evita cated and was performed. PATIENT WAS FASTINGP ERFORMED BY: RUBEN LabParker TrevinoTmmcgf8099 [address] Roadblin [place] [id number] Microscopic observation LM Nom (Urine sed) MICRON Normal [facility] Work Phone: Comment on above: Microscopic follows if indicated. PATIENT WAS FASTINGP ERFORMED BY: RUBEN LabParker TrevinoEulbvu[address] [facility] [id number] Nitrite Ql (U) Negative Normal Comprehens иван Internal Medicine Work Phone: Comment on above: PATIENT WAS FASTINGP ERFORMED BY: RUBEN [address]vinolin[address] [facility] [id number] Nitrite Ql (U) Negative Normal Comprehens иван Internal Medicine; [facility] Work Phone: Comment on above: PATIENT WAS FASTINGP ERFORMED BY: RUBEN Trevinolin[address] [facility] [id number] Nitrite Test strip Ql (U) Negative Normal [facility] Work Phone: pH (U) 6.0 [pH] Normal 5.0-7.5 [facility] Work Phone: Comment on above: PATIENT WAS FASTINGP ERFORMED BY: RUBEN LabParker TrevinoDzlepn[address] [facility] [id number] pH Test strip (U) 6.0 [pH] Normal 5.0-7.5 Compreh ensive Internal Medicine Work Phone: Protein Ql (U) Negative Normal Comprehens иван Internal Medicine Work Phone: Comment on above: PATIENT WAS FASTINGP ERFORMED BY: RUBEN LabParker TrevinoDekkvv3551 [address] [facility] [place] [id number] Protein Ql (U) Negative Normal Comprehens иван Internal Medicine; [facility] Work Phone: Comment on above: PATIENT WAS FASTINGP ERFORMED BY: RUBEN [facility] Czexsm9643 [facility] [id number] Protein Test strip Ql (U) Negative Normal [facility] Work Phone: Specific gravity Relative Density (U) 1.028 1 Normal 1.005-1.030 Comprehensi ve Internal Medicine Work Phone: Comment on above: PATIENT WAS FASTINGP ERFORMED BY: ImmunoGenResearch [facility] Ltdwxe2123 [facility] [id number] Urobilinogen (U) [Mass/Vol] 0.2 mg/dL Normal 0.2-1.0 [facility]; [facility] Work Phone: Comment on above: PATIENT WAS FASTINGP ERFORMED BY: [employer] Paqebe[address] [facility]UNC [facility] [id number] Urobilinogen Test strip mass conc (U) 0.2 mg/dL Normal 0.2-1.0 Comprehensiv e Internal Medicine Work Phone: Comment on above: PATIENT WAS FASTINGP ERFORMED BY: ImmunoGenResearch [facility] Center[facility] Wagkrl9485 [facility] [id number] PAP I-G w/rfx hrHPVOrdered B y: Refrigeration Insulator on 03-22-2015 COMM . Normal [facility] Work Phone: HPV RFLX Comment Normal [facility] Work Phone: Comment on above: The HPV DNA reflex c riteria were not met with this specimenresult therefore, no HPV testing was performed.Performed at: [address], [place] [id number] Director: Kaiser Pennington MD, Phone: [phone] [facility] Cytot echnologist ([facility]) This liquid based Th inPrep(R) pap test was screened withthe use of an image guided system. NEGATIVE FOR INTRAEP ITHELIAL LESION AND MALIGNANCY.FUNGAL ORGANISMS MORPHOLOGICALLY CONSISTENT WITH YAZMIN SPECIES AREPRESENT.THIS SPECIMEN WAS RESCREENED PART OF OUR [employer]AM [employer]ANT RECORDS CLERK PROGRAM. Teresa Neal, Cyto technologist ([facility]) Satisfactory for josé luation. Endocervical and/or squamous metaplasticcells (endocervical component) are present. The Pap smear is a s creening test designed to aid in thedetection of premalignant and malignant conditions of theuterine cervix. It is not a diagnostic procedure andshould not be used as the sole means of detecting cervicalcancer. Both false-positive and false-negative reports dooccur. ENDOMETRIAL BX/CURETTINGSOrd ered By: Refrigeration Insulator on 02-28-2015 ENDOMETRIAL BX/CURETTINGS See Note Normal [facility] Work Phone: Comment on above: Patient: ANITHA VILLAGRAN : 1970 (44/F) Acct Num: [id number] Phys: Tisha ACKERMAN,Janelle Unit Num: [id number] Loc: [facility] Specimen: [id number] Received: 03/01/15818 Spec Type: ENDOM BX/C TISSUES TISSUES: GROSS DESCRIPTION Received is one container labeled with the patient name and designated endometrial curettings. The specimen consists of multiple fragments of hemorrhagic mucoid tissue measuring in aggregate 3 x 2.5 x 0.1 cm. The specimenis totally submitted in one cassette. / SJ:anneliese 03/01/15 TC:5 CPT: 87152 HEADER OPERATION: Hysteroscopy, Diagnostic, D AND C PRE-OP DIAGNOSIS: Irregular menstrual bleeding, endometrial thickening TISSUE SUBMITTED: Endometrial curettings MICROSCOPIC DESCRIPTION Slides are reviewed. MICROSCOPIC DIAGNOSIS Endometrium, curettings: Fragments of endocervix with no significant pathologic change. Disarticulated squamous epithelial cells with no significant pathologic change. Rare strips of benign superficial lower uterine endometrium. AM:sl 03/02/15 Signed Juan Francisco Arelis 03/02/15 ,UrineOrdered By: Andres ystem Business Sales Consultant on 02-28-2015 HCGUQUAL Negative Normal [facility] Work Phone: Comment on above: Very dilute urine sp ecimens, as indicated by a low specificgravity, may not contain technical support representative levels of hCG.If is still suspected, a first morning urinespecimen should be collected 48 hours later and tested. CBC With Differential/Platel etOrdered By: Refrigeration Insulator on 11-25-2014 Basophils Auto #/vol (Bld) 0.0 {x10E3/uL} Normal 0.0-0.2 [facility] Work Phone: Basophils/100 WBC Auto (Bld) 0 % Normal [facility] Internal Medicine Work Phone: Eosinophils Auto #/vol (Bld) 0.2 {x10E3/uL} Normal 0.0-0.4 [facility] Internal Medicine Work Phone: Eosinophils/100 WBC Auto (Bld) 2 % Normal [facility] Internal Medicine Work Phone: Erythrocyte distribution width Auto Ratio (RBC) 13.3 % Normal 12.3-15.4 [facility] Internal Medicine Work Phone: Hematocrit Auto Volume Fraction (Bld) 39.1 % Normal 34.0-46.6 Comprehens [facility] Internal Medicine Work Phone: Hemoglobin mass conc (Bld) 12.6 g/dL Normal 11.1-15.9 [facility] Internal Medicine Work Phone: Immature granulocytes #/vol (Bld) 0.0 {x10E3/uL} Normal 0.0-0.1 [facility] Internal Medicine Work Phone: Immature granulocytes/100 WBC (Bld) 0 % Normal [facility] Internal Medicine Work Phone: Lymphocytes Auto #/vol (Bld) 2.3 {x10E3/uL} Normal 0.7-3.1 [facility] Internal Medicine Work Phone: Lymphocytes/100 WBC Auto (Bld) 29 % Normal [facility] Internal Medicine Work Phone: MCH Auto Entitic mass (RBC) 30.8 pg Normal 26.6-33.0 [facility] Internal Medicine Work Phone: MCHC Auto mass conc (RBC) 32.2 g/dL Normal 31.5-35.7 [facility] Internal Medicine Work Phone: MCV Auto Entitic volume (RBC) 96 fL Normal 79-97 [facility] Internal Medicine Work Phone: Monocytes Auto #/vol (Bld) 0.6 {x10E3/uL} Normal 0.1-0.9 [facility] Work Phone: Monocytes/100 WBC Auto (Bld) 7 % Normal [facility] Work Phone: Neutrophils Auto #/vol (Bld) 4.8 {x10E3/uL} Normal 1.4-7.0 [facility] Work Phone: Neutrophils/100 WBC Auto (Bld) 62 % Normal [facility] Work Phone: Platelets Auto #/vol (Bld) 327 {x10E3/uL} Normal 150-379 [facility] Work Phone: RBC Auto #/vol (Bld) 4.09 {x10E6/uL} Normal 3.77-5.28 [facility] Work Phone: WBC Auto #/vol (Bld) 7.9 {x10E3/uL} Normal 3.4-10.8 [facility] Internal Medicine Work Phone: Comp. Metabolic Panel (14)Or dered By: Refrigeration Insulator on 11-25-2014 Albumin mass conc 4.6 g/dL Normal 3.5-5.5 [facility] Internal Medicine Work Phone: Albumin/Globulin mass ratio 2.1 {ratio} Normal 1.1-2.5 [facility] Internal Medicine Work Phone: ALP enzyme act/vol 58 [iU]/L Normal 39-117 [facility] Internal Medicine Work Phone: ALT enzyme act/vol 9 [iU]/L Normal 0-32 [facility] Internal Medicine Work Phone: AST enzyme act/vol 15 [iU]/L Normal 0-40 [facility] Internal Medicine Work Phone: Bilirubin mass conc 0.3 mg/dL Normal 0.0-1.2 Compr [facility] Internal Medicine Work Phone: Calcium mass conc 9.8 mg/dL Normal 8.7-10.2 Compreh [facility] Internal Medicine Work Phone: Chloride molar conc 97 mmol/L Normal 97-108 Compr [facility] Internal Medicine Work Phone: CO2 molar conc 27 mmol/L Normal 18-29 Comprehens иван Internal Medicine Work Phone: Creatinine mass conc 0.73 mg/dL Normal 0.57-1.00 Comp rehensive Internal Medicine Work Phone: GFR/1.73 sq M predicted among blacks CKD-EPI vol rate/area (S/P/Bld) 114 mL/min/1.73 Normal Comprehensiv e Internal Medicine Work Phone: GFR/1.73 sq M predicted among non-blacks CKD-EPI vol rate/area (S/P/Bld) 99 mL/min/1.73 Normal [facility] Work Phone: Globulin Calculated mass conc (S) 2.2 g/dL Normal 1.5-4.5 [facility] Work Phone: Glucose mass conc 85 mg/dL Normal 65-99 Compreh ensive Internal Medicine Work Phone: Potassium molar conc 4.3 mmol/L Normal 3.5-5.2 Comp rehensive Internal Medicine Work Phone: Protein mass conc 6.8 g/dL Normal 6.0-8.5 Compreh ensive Internal Medicine Work Phone: Sodium molar conc 137 mmol/L Normal 134-144 Compreh ensive Internal Medicine Work Phone: Urea nitrogen mass conc 16 mg/dL Normal 6-24 [facility] Work Phone: Urea nitrogen/Creatinine mass ratio 22 mg/mg Normal 9-23 [facility] Work Phone: Lipid Panel With LDL/HDL Rat ioOrdered By: Refrigeration Insulator on 11-25-2014 Cholesterol in HDL mass conc 67 mg/dL Normal [facility] Work Phone: Comment on above: According to ATP-III Guidelines, HDL-C >59 mg/dL is considered anegative risk factor for CHD. Cholesterol in LDL mass conc 99 mg/dL Normal 0-99 [facility] Work Phone: Cholesterol in LDL/Cholesterol in HDL mass ratio 1.5 {ratio_units} Normal 0.0-3.2 [facility] Work Phone: Comment on above: LDL/HDL Ratio Men Wo men 1/2 Avg.Risk 1.0 1.5 Avg.Risk 3.6 3.2 2X Avg.Risk 6.2 5.0 3X Avg.Risk 8.0 6.1 Cholesterol in VLDL mass conc 25 mg/dL Normal 5-40 [facility] Work Phone: Cholesterol mass conc 191 mg/dL Normal 100-199 [facility]: Triglyceride mass conc 123 mg/dL Normal 0-149 [facility] Work Phone: Microalb/Creat Ratio, Randm UrOrdered By: Refrigeration Insulator on 11-25-2014 Albumin DL <= 20 mg/L mass conc (U) 3.1 ug/mL Normal 0.0-17.0 [facility] Work Phone: Albumin/Creatinine mass ratio (U) 6.0 {mg/g_creat} Normal 0.0-30.0 [facility] Work Phone: Creatinine mass conc (U) 51.9 mg/dL Normal 15.0-278.0 [facility] Internal Medicine Work Phone: TSHOrdered By: System Manage r on 11-25-2014 Thyrotropin Qn 1.650 {uIU/mL} Normal 0.450-4.500 [facility] Internal Medicine Work Phone: Vitamin D, 25-HydroxyOrdered By: Refrigeration Insulator on 11-25-2014 25-Hydroxyvitamin D2+25-Hydroxyvitamin D3 mass conc 49.2 ng/mL Normal 30.0-100.0 [facility] Internal Medicine Work Phone: Comment on above: Vitamin D deficiency has been defined by the [place] of[place]icine and an Endocrine Society practice guideline as alevel of serum 25-OH vitamin D less than 20 ng/mL (1,2).The Endocrine Society went on to further define vitamin Dinsufficiency as a level between 21 and 29 ng/mL (2).1. IOM ([place] of Medicine). 2010. Dietary reference intakes for calcium and D. [place]: The National Academies Press.2. Krystal MF, Ashtyn GREENBERG, Cassandra FLEMING, et al. Evaluation, treatment, and prevention of vitamin D deficiency: an Endocrine Society clinical practice guideline. JCEM. 2010; 96(7):1911-30. CBC WITH MANUAL DIFF (35808) Ordered By: Refrigeration Insulator on 10-06-2013 Basophils (Bld) [#/Vol] 0.0 {x10E3/uL} Normal 0.0-0.2 [facility] Work Phone: Comment on above: PATIENT WAS FASTINGP ERFORMED BY: [address] [id number] Information: [id number] Basophils (Bld) [#/Vol] 0.0 10*3/uL Normal 0.0-0.2 [facility]; [facility] Work Phone: Comment on above: PATIENT WAS FASTINGP ERFORMED BY: [address] [id number] Information: [id number] Basophils Auto #/vol (Bld) 0.0 {x10E3/uL} Normal 0.0-0.2 [facility] Work Phone: Basophils/100 WBC (Bld) 0 % Normal 0-3 [facility] Work Phone: Comment on above: PATIENT WAS FASTINGP ERFORMED BY: [place] [id number] [facility] [id number] Information: [id number] Basophils/100 WBC Auto (Bld) 0 % Normal 0-3 [facility] Work Phone: Eosinophils (Bld) [#/Vol] 0.2 {x10E3/uL} Normal 0.0-0.4 [facility] Work Phone: Comment on above: PATIENT WAS FASTINGP ERFORMED BY: [place] [id number] [facility] [id number] Information: [id number] Eosinophils (Bld) [#/Vol] 0.2 10*3/uL Normal 0.0-0.4 [facility]; [facility] Work Phone: Comment on above: PATIENT WAS FASTINGP ERFORMED BY: RUBEN [place] [id number] [facility] [id number] Information: [id number] Eosinophils Auto #/vol (Bld) 0.2 {x10E3/uL} Normal 0.0-0.4 [facility] Work Phone: Eosinophils/100 WBC (Bld) 3 % Normal 0-5 [facility] Work Phone: Comment on above: PATIENT WAS FASTINGP ERFORMED BY: RUBEN [place] 0856770 [facility] [id number] Information: [id number] Eosinophils/100 WBC Auto (Bld) 3 % Normal 0-5 [facility] Work Phone: Erythrocyte distribution width (RBC) [Ratio] 13.2 % Normal 12.3-15.4 [facility] Work Phone: Comment on above: PATIENT WAS FASTINGP ERFORMED BY: RUBEN [facility] [id number] Information: [id number] Erythrocyte distribution width Auto Ratio (RBC) 13.2 % Normal 12.3-15.4 [facility] Work Phone: Hematocrit (Bld) [Volume fraction] 38.6 % Normal 34.0-46.6 [facility] Work Phone: Comment on above: PATIENT WAS FASTINGP ERFORMED BY: RUBEN [facility] [id number] Information: [id number] Hematocrit Auto Volume Fraction (Bld) 38.6 % Normal 34.0-46.6 [facility] Internal Medicine Work Phone: Hemoglobin mass conc (Bld) 12.3 g/dL Normal 11.1-15.9 [facility] Work Phone: Comment on above: PATIENT WAS FASTINGP ERFORMED BY: [place] [id number] [facility] [id number] Information: [id number] Immature granulocytes #/vol (Bld) 0.0 {x10E3/uL} Normal 0.0-0.1 [facility] Work Phone: Comment on above: PATIENT WAS FASTINGP ERFORMED BY: [address] [id number] Information: [id number] Immature granulocytes (Bld) [#/Vol] 0.0 10*3/uL Normal 0.0-0.1 [facility]; [facility] Work Phone: Comment on above: PATIENT WAS FASTINGP ERFORMED BY: [address] [id number] Information: [id number] Immature granulocytes/100 WBC (Bld) 0 % Normal 0-2 [facility] Work Phone: Comment on above: PATIENT WAS FASTINGP ERFORMED BY: [address] [id number] Information: [id number] Lymphocytes (Bld) [#/Vol] 1.8 {x10E3/uL} Normal 0.7-3.1 [facility] Work Phone: Comment on above: PATIENT WAS FASTINGP ERFORMED BY: [address] [id number] Information: [id number] Lymphocytes (Bld) [#/Vol] 1.8 10*3/uL Normal 0.7-3.1 [facility]; [facility] Work Phone: Comment on above: PATIENT WAS FASTINGP ERFORMED BY: [place] [id number] [facility] [id number] Information: [id number] Lymphocytes Auto #/vol (Bld) 1.8 {x10E3/uL} Normal 0.7-3.1 [facility] Work Phone: Lymphocytes/100 WBC (Bld) 28 % Normal 14-46 [facility] Work Phone: Comment on above: PATIENT WAS FASTINGP ERFORMED BY: [address] [id number] Information: [id number] Lymphocytes/100 WBC Auto (Bld) 28 % Normal 14-46 [facility] Work Phone: MCH (RBC) [Entitic mass] 30.3 pg Normal 26.6-33.0 [facility] Internal Medicine Work Phone: Comment on above: PATIENT WAS FASTINGP ERFORMED BY: [address] [id number] Information: [id number] MCH Auto Entitic mass (RBC) 30.3 pg Normal 26.6-33.0 [facility] Internal Medicine Work Phone: MCHC (RBC) [Mass/Vol] 31.9 g/dL Normal 31.5-35.7 [facility] Internal Medicine Work Phone: Comment on above: PATIENT WAS FASTINGP ERFORMED BY: [address] [id number] Information: [id number] MCHC Auto mass conc (RBC) 31.9 g/dL Normal 31.5-35.7 [facility] Internal Medicine Work Phone: MCV (RBC) [Entitic vol] 95 fL Normal 79-97 [facility] Internal Medicine Work Phone: Comment on above: PATIENT WAS FASTINGP ERFORMED BY: [place] [id number] [facility] [id number] Information: [id number] MCV Auto Entitic volume (RBC) 95 fL Normal 79-97 [facility] Internal Medicine Work Phone: Monocytes (Bld) [#/Vol] 0.5 {x10E3/uL} Normal 0.1-0.9 [facility] Work Phone: Comment on above: PATIENT WAS FASTINGP ERFORMED BY: RUBEN [facility]6370 [facility] [id number] Information: [id number] Monocytes (Bld) [#/Vol] 0.5 10*3/uL Normal 0.1-0.9 [facility]; [facility] Work Phone: Comment on above: PATIENT WAS FASTINGP ERFORMED BY: [address] [id number] Information: [id number] Monocytes Auto #/vol (Bld) 0.5 {x10E3/uL} Normal 0.1-0.9 [facility] Work Phone: Monocytes/100 WBC (Bld) 7 % Normal 4-12 [facility] Work Phone: Comment on above: PATIENT WAS FASTINGP ERFORMED BY: [address] [id number] Information: [id number] Monocytes/100 WBC Auto (Bld) 7 % Normal -12 [facility] Work Phone: Neutrophils (Bld) [#/Vol] 4.0 {x10E3/uL} Normal 1.4-7.0 [facility] Work Phone: Comment on above: PATIENT WAS FASTINGP ERFORMED BY: [place] 2507270 [facility] [id number] Information: [id number] Neutrophils (Bld) [#/Vol] 4.0 10*3/uL Normal 1.4-7.0 [facility]; [facility] Work Phone: Comment on above: PATIENT WAS FASTINGP ERFORMED BY: RUBEN [facility] Hldswe9429 [facility] [id number] Information: [id number] Neutrophils Auto #/vol (Bld) 4.0 {x10E3/uL} Normal 1.4-7.0 [facility] Work Phone: Neutrophils/100 WBC (Bld) 62 % Normal 40-74 [facility] Work Phone: Comment on above: PATIENT WAS FASTINGP ERFORMED BY: RUBEN Lorriehiro Mgteos5161 [facility] [id number] Information: [id number] Neutrophils/100 WBC Auto (Bld) 62 % Normal 40-74 [facility] Work Phone: Platelets (Bld) [#/Vol] 302 {x10E3/uL} Normal 155-379 [facility] Work Phone: Comment on above: PATIENT WAS FASTINGP ERFORMED BY: RUBEN MelodyParker TrevinoYjjooq[address] [id number] Information: [id number] Platelets (Bld) [#/Vol] 302 10*3/uL Normal 155-379 [facility] Internal Medicine; [facility] Work Phone: Comment on above: PATIENT WAS FASTINGP ERFORMED BY: RUBEN [facility] Twjniq82[address] [id number] Information: [id number] Platelets Auto #/vol (Bld) 302 {x10E3/uL} Normal 155-379 [facility] Internal Medicine Work Phone: RBC (Bld) [#/Vol] 4.06 {x10E6/uL} Normal 3.77-5.28 [facility] Internal Medicine Work Phone: Comment on above: PATIENT WAS FASTINGP ERFORMED BY: RUBEN [place] 0856770 [facility] [id number] Information: [id number] RBC (Bld) [#/Vol] 4.06 10*6/uL Normal 3.77-5.28 [facility] Internal Medicine; [facility] Internal Medicine Work Phone: Comment on above: PATIENT WAS FASTINGP ERFORMED BY: RUBEN [place] 0856770 [facility] [id number] Information: [id number] RBC Auto #/vol (Bld) 4.06 {x10E6/uL} Normal 3.77-5.28 [facility] Work Phone: WBC (Bld) [#/Vol] 6.5 {x10E3/uL} Normal 3.4-10.8 [facility] prehensive Internal Medicine Work Phone: Comment on above: PATIENT WAS FASTINGP ERFORMED BY: RUBEN [employer] Sxabuw9696 [facility] [id number] Information: [id number] WBC (Bld) [#/Vol] 6.5 10*3/uL Normal 3.4-10.8 [facility] Internal Medicine; [facility] Work Phone: Comment on above: PATIENT WAS FASTINGP ERFORMED BY: RUBEN [employer] Wheelshiro TrevinoFbvbbq8267 [facility] [id number] Information: [id number] WBC Auto #/vol (Bld) 6.5 {x10E3/uL} Normal 3.4-10.8 [facility] Work Phone: LIPID PANEL ([id number])Ordered B y: Refrigeration Insulator on 10-06-2013 Cholesterol in HDL mass conc 57 mg/dL Normal [facility] Work Phone: Comment on above: According to ATP-III Guidelines, HDL-C >59 mg/dL is considered anegative risk factor for CHD. PATIENT WAS FASTINGP ERFORMED BY: RUBEN [employer] Genapn[address] [place] [facility]iencesSent[facility] [id number] Cholesterol in LDL mass conc 89 mg/dL Normal 0-99 [facility] Work Phone: Comment on above: PATIENT WAS FASTINGP ERFORMED BY: RUBEN [employer] Rztmfq7762 [place] [facility]Sent[facility] [id number] Cholesterol in LDL/Cholesterol in HDL mass ratio 1.6 {ratio_units} Normal 0.0-3.2 [facility] Work Phone: Comment on above: PATIENT WAS FASTINGP ERFORMED BY: [employer] Wvsrct8037 [employer] [facility]Sent[facility] [id number] Cholesterol in VLDL mass conc 15 mg/dL Normal 5-40 [facility] Work Phone: Comment on above: PATIENT WAS FASTINGP ERFORMED BY: RUBEN [facility] Eedsvt[address]1 [address] [facility] [place] [id number] Cholesterol mass conc 161 mg/dL Normal 100-199 Com prehensive Internal Medicine Work Phone: Comment on above: PATIENT WAS FASTINGP ERFORMED BY: RUBEN [facility] Qujotk1255 [address] [facility] [place] [id number] Triglyceride mass conc 76 mg/dL Normal 0-149 [facility] Work Phone: Comment on above: PATIENT WAS FASTINGP ERFORMED BY: RUBEN [facility] J[address]ztdn[address] [facility] [id number] METABOLIC PANEL, COMPREHENSI VE ([id number])Ordered By: Refrigeration Insulator on 10-06-2013 Albumin mass conc 4.4 g/dL Normal 3.5-5.5 Compreh ensive Internal Medicine Work Phone: Comment on above: PATIENT WAS FASTINGP ERFORMED BY: RUBEN [facility] Itbnhj0425 [address] [facility] [place] [id number] Albumin/Globulin mass ratio 2.0 {ratio} Normal 1.1-2.5 [facility] Work Phone: Comment on above: PATIENT WAS FASTINGP ERFORMED BY: RUBEN [facility] Skueqm9181 [facility] [place] [id number] ALP [Catalytic activity/Vol] 51 U/L Normal 39-117 [facility]; [facility] Work Phone: Comment on above: PATIENT WAS FASTINGP ERFORMED BY: RUBEN [facility] Duccbe4508 [address] [facility] [place] [id number] ALP enzyme act/vol 51 [iU]/L Normal 39-117 Compre [facility] Internal Medicine Work Phone: Comment on above: PATIENT WAS FASTINGP ERFORMED BY: RUBEN [facility] Psvhdy0999 [address] [facility] [place] [id number] ALT [Catalytic activity/Vol] 8 U/L Normal 0-32 [facility]; [facility] Work Phone: Comment on above: PATIENT WAS FASTINGP ERFORMED BY: RUBEN LabCohiro AmaroBsvduh3507 Sh[address]la RoadDublin [place] [id number] ALT enzyme act/vol 8 [iU]/L Normal 0-[address] [facility] Internal Medicine Work Phone: Comment on above: PATIENT WAS FASTINGP ERFORMED BY: RUBEN LabCohiro TrevinoFyxszv4309 [address] Roadblin [place] [id number] AST [Catalytic activity/Vol] 17 U/L Normal 0-40 [facility]; [facility] Internal Medicine Work Phone: Comment on above: PATIENT WAS FASTINGP ERFORMED BY: RUBEN LabParker TrevinoLluctd1351 [address] Roadblin [place] [id number] AST enzyme act/vol 17 [iU]/L Normal 0-40 [facility] Internal Medicine Work Phone: Comment on above: PATIENT WAS FASTINGP ERFORMED BY: RUBEN Amaro[address] [facility] [place] [id number] Bilirubin mass conc 0.4 mg/dL Normal 0.0-1.2 Compr ensive Internal Medicine Work Phone: Comment on above: PATIENT WAS FASTINGP ERFORMED BY: RUBEN Trevinolin6[address] [place] [facility] [place] [id number] Calcium mass conc 9.7 mg/dL Normal 8.7-10.2 Compreh ensive Internal Medicine Work Phone: Comment on above: PATIENT WAS FASTINGP ERFORMED BY: RUBEN LabParker TrevinoMwzcol3188 [address] [facility] [place] [id number] Chloride molar conc 100 mmol/L Normal 97-108 Compr ehensive Internal Medicine Work Phone: Comment on above: PATIENT WAS FASTINGP ERFORMED BY: RUBEN LabCohiro TrevinoEjrgeb0679 Sh[address] Roadblin [place] [id number] CO2 molar conc 27 mmol/L Normal 19-28 Comprehens иван Internal Medicine Work Phone: Comment on above: PATIENT WAS FASTINGP ERFORMED BY: RUBEN [facility] Mkcasc8778 [facility] [id number] Creatinine mass conc 0.74 mg/dL Normal 0.57-1.00 Comp rehensive Internal Medicine Work Phone: Comment on above: PATIENT WAS FASTINGP ERFORMED BY: LabCo Qqoaue0614 [facility] [id number] GFR/1.73 sq M predicted among blacks CKD-EPI vol rate/area (S/P/Bld) 113 mL/min/1.73 Normal Comprehensiv e Internal Medicine Work Phone: Comment on above: PATIENT WAS FASTINGP ERFORMED BY: LabMcl[facility] Region6370 [facility] [id number] GFR/1.73 sq M predicted among non-blacks CKD-EPI vol rate/area (S/P/Bld) 98 mL/min/1.73 Normal [facility] Work Phone: Comment on above: PATIENT WAS FASTINGP ERFORMED BY: LabMcl[facility]umb Region6370 [facility] [id number] Globulin (S) [Mass/Vol] 2.2 g/dL Normal 1.5-4.5 [facility] Work Phone: Comment on above: PATIENT WAS FASTINGP ERFORMED BY: [facility]Research [facility] Uvdfjp6608 [facility] [id number] Globulin Calculated mass conc (S) 2.2 g/dL Normal 1.5-4.5 [facility] Work Phone: Glucose mass conc 81 mg/dL Normal 65-99 Compreh ensive Internal Medicine Work Phone: Comment on above: PATIENT WAS FASTINGP ERFORMED BY: LabCo Gqnvza1153 [facility] [id number] Potassium molar conc 4.5 mmol/L Normal 3.5-5.2 Comp [facility] Work Phone: Comment on above: PATIENT WAS FASTINGP ERFORMED BY: LabResearch [facility] Rsbsuu5824 [facility] [id number] Protein mass conc 6.6 g/dL Normal 6.0-8.5 Compreh ensive Internal Medicine Work Phone: Comment on above: PATIENT WAS FASTINGP ERFORMED BY: RUBEN [address]vinolin[address] [facility] [id number] Sodium molar conc 138 mmol/L Normal 134-144 Compreh ensive Internal Medicine Work Phone: Comment on above: PATIENT WAS FASTINGP ERFORMED BY: RUBEN Amaro6370 [facility] [id number] Urea nitrogen mass conc 17 mg/dL Normal 6-24 [facility] Work Phone: Comment on above: PATIENT WAS FASTINGP ERFORMED BY: RUBEN Trevinolin6370 [facility] [id number] Urea nitrogen/Creatinine mass ratio 23 mg/mg Normal 9-23 [facility] Work Phone: Comment on above: PATIENT WAS FASTINGP ERFORMED BY: RUBEN Trevinolin6370 [facility] [id number] MICROALBUMINOrdered By: Syst em Business Sales Consultant on 10-06-2013 Albumin DL <= 20 mg/L mass conc (U) 2.6 ug/mL Normal 0.0-17.0 [facility] Work Phone: Comment on above: PATIENT WAS FASTINGP ERFORMED BY: RUBEN Trevinolin6370 [facility] [id number] Albumin/Creatinine mass ratio (U) 2.8 {mg/g_creat} Normal 0.0-30.0 [facility] Work Phone: Comment on above: PATIENT WAS FASTINGP ERFORMED BY: RUBEN LabManan Qyjnex9901 [facility] [id number] Creatinine mass conc (U) 93.5 mg/dL Normal 15.0-278.0 [facility] Work Phone: Comment on above: PATIENT WAS FASTINGP ERFORMED BY: RUBEN Trevinolin6370 [facility] [id number] Microscopic ExaminationOrder ed By: Refrigeration Insulator on 10-06-2013 Bacteria LM.HPF #/area (Urine sed) None seen Normal [facility] Work Phone: Epithelial cells LM.HPF #/area (Urine sed) 0-10 Normal 0 - 10 [facility] Work Phone: Mucus LM Ql (Urine sed) Present Normal [facility] Work Phone: RBC LM.HPF #/area (Urine sed) 0-3 Normal 0 - 3 [facility] Work Phone: WBC LM.HPF #/area (Urine sed) None seen Normal 0 - 5 [facility] Work Phone: TSH ([id number])Ordered By: Syste m Business Sales Consultant on 10-06-2013 Thyrotropin Qn 1.820 {uIU/mL} Normal 0.450-4.500 Compr ehensive Internal Medicine Work Phone: Comment on above: PATIENT WAS FASTINGP ERFORMED BY: RUBEN [facility] Gwzksx0453 [address] RoadDublin [place] [id number] URINALYSIS, W/ MICRO ([id number]) Ordered By: Refrigeration Insulator on 10-06-2013 Appearance Nom (U) Clear Normal Compre hensive Internal Medicine Work Phone: Comment on above: PATIENT WAS FASTINGP ERFORMED BY: RUBEN [facility] Qfuivc6258 [address] RoadDublin [place] [id number] Bilirubin Ql (U) Negative Normal Comprehe nsive Internal Medicine Work Phone: Comment on above: PATIENT WAS FASTINGP ERFORMED BY: CB [facility] Jyzdwk2363 [address] RoadDublin [place] [id number] Bilirubin Ql (U) Negative Normal Comprehe nsive Internal Medicine; [facility] Work Phone: Comment on above: PATIENT WAS FASTINGP ERFORMED BY: CB [facility] Csjibq7614 [address] RoadDublin [place] [id number] Color Nom (U) Yellow Normal Comprehensi ve Internal Medicine Work Phone: Comment on above: PATIENT WAS FASTINGP ERFORMED BY: CB [facility] Ffjzgu1737 [address] RoadDublin [place] [id number] Glucose Ql (U) Negative Normal Comprehens иван Internal Medicine Work Phone: Comment on above: PATIENT WAS FASTINGP ERFORMED BY: RUBEN Amaro6370 [address] RoadDublin [place] [id number] Glucose Ql (U) Negative Normal Comprehens иван Internal Medicine; [facility] Work Phone: Comment on above: PATIENT WAS FASTINGP ERFORMED BY: RUBEN Amaro6370 [address] RoadDublin [place] [id number] Hemoglobin Ql (U) Negative Normal Compreh ensive Internal Medicine Work Phone: Comment on above: PATIENT WAS FASTINGP ERFORMED BY: RUBEN Amaro6[address] RoadDublin [place] [id number] Hemoglobin Ql (U) Negative Normal Compreh ensive Internal Medicine; [facility] Work Phone: Comment on above: PATIENT WAS FASTINGP ERFORMED BY: RUBEN Amaro6[address] RoadDublin [place] [id number] Hemoglobin Test strip Ql (U) Negative Normal [facility] Work Phone: Ketones Ql (U) Negative Normal Comprehens иван Internal Medicine Work Phone: Comment on above: PATIENT WAS FASTINGP ERFORMED BY: RUBEN Amaro6[address] RoadDublin [place] [id number] Ketones Ql (U) Negative Normal Comprehens иван Internal Medicine; [facility] Work Phone: Comment on above: PATIENT WAS FASTINGP ERFORMED BY: RUBEN Trevinolin6370 [address] RoadDublin [place] [id number] Leukocyte esterase Test strip Ql (U) Negative Normal [facility] Work Phone: Comment on above: PATIENT WAS FASTINGP ERFORMED BY: RUBEN Trevinolin6370 [address] RoadDublin [place] [id number] Leukocyte esterase Test strip Ql (U) Negative Normal [facility]; [facility] Work Phone: Comment on above: PATIENT WAS FASTINGP ERFORMED BY: RUBEN Trevinolin[address]Dublin [place] [id number] Microscopic observation LM Nom (Urine sed) See below: Normal [facility] Work Phone: Comment on above: PATIENT WAS FASTINGP ERFORMED BY: RUBEN Amaro6[address]Dublin [place] [id number] Microscopic observation LM Nom (Urine sed) MICRON Normal [facility] Work Phone: Comment on above: Microscopic follows if indicated. PATIENT WAS FASTINGP ERFORMED BY: RUBEN Amaro[address]Dublin [place] [id number] Nitrite Ql (U) Negative Normal Comprehens иван Internal Medicine Work Phone: Comment on above: PATIENT WAS FASTINGP ERFORMED BY: RUBEN Smallwood70 [address]Dublin [place] [id number] Nitrite Ql (U) Negative Normal Comprehens иван [facility]; [facility] Work Phone: Comment on above: PATIENT WAS FASTINGP ERFORMED BY: RUBEN Smallwood[address]Dublin [place] [id number] Nitrite Test strip Ql (U) Negative Normal [facility] Work Phone: pH (U) 7.0 [pH] Normal 5.0-7.5 [facility] Work Phone: Comment on above: PATIENT WAS FASTINGP ERFORMED BY: RUBEN Amaro[address]Dublin [place] [id number] pH Test strip (U) 7.0 [pH] Normal 5.0-7.5 Compreh ensive Internal Medicine Work Phone: Protein Ql (U) Negative Normal Comprehens иван [facility] Work Phone: Comment on above: PATIENT WAS FASTINGP ERFORMED BY: RUBNE Amaro[address]Dublin [place] [id number] Protein Ql (U) Negative Normal Comprehens иван [facility]; [facility] Work Phone: Comment on above: PATIENT WAS FASTINGP ERFORMED BY: RUBEN Amaro[address] [place] [id number] Protein Test strip Ql (U) Negative Normal [facility] Work Phone: Specific gravity Relative Density (U) 1.017 1 Normal 1.005-1.030 Comprehensi ve Internal Medicine Work Phone: Comment on above: PATIENT WAS FASTINGP ERFORMED BY: CB [facility] Wadlqp8520 [address]Dublin [place] [id number] Urobilinogen (U) [Mass/Vol] 0.2 mg/dL Normal 0.0-1.9 [facility]; [facility] Work Phone: Comment on above: PATIENT WAS FASTINGP ERFORMED BY: CB [facility] Phuvrs08[address]Dublin [place] [id number] Urobilinogen Test strip mass conc (U) 0.2 mg/dL Normal 0.0-1.9 Comprehensiv e Internal Medicine Work Phone: Comment on above: PATIENT WAS FASTINGP ERFORMED BY: CB [facility] Cbkclz0770 [address]Dublin [place] [id number] Vitamin D Hydroxy (84578)Ord ered By: Refrigeration Insulator on 10-06-2013 25-Hydroxyvitamin D2+25-Hydroxyvitamin D3 mass conc 47.8 ng/mL Normal 30.0-100.0 [facility] Internal Medicine Work Phone: Comment on above: Vitamin D deficiency has been defined by the [place] of[place] and an Endocrine Society practice guideline as alevel of serum 25-OH vitamin D less than 20 ng/mL (1,2).The Endocrine Society went on to further define vitamin Dinsufficiency as a level between 21 and 29 ng/mL (2).1. IOM ([place] of [place]). 2010. Dietary reference intakes for calcium and D. [place]: The National Academies Press.2. Krystal MF, Ashtyn NC, Cassandra FLEMING, et al. Evaluation, treatment, and prevention of vitamin D deficiency: an Endocrine Society clinical practice guideline. JCEM. 2010; 96(7):1911-30. PATIENT WAS FASTINGP ERFORMED BY: CB [facility] Hhupqm74[address] RoadDublin [place] [id number] HEPATIC FUNCTION PANEL (8007 6)Ordered By: Refrigeration Insulator on 01-08-2013 Albumin mass conc 4.5 g/dL Normal 3.5-5.5 [facility] Internal Medicine Work Phone: Comment on above: PATIENT WAS FASTINGP ERFORMED BY: CB [facility] Xbcdtp8[address]Dublin [place] [id number] ALP [Catalytic activity/Vol] 59 U/L Normal 25-150 [facility] Internal Medicine; [facility] Internal Medicine Work Phone: Comment on above: PATIENT WAS FASTINGP ERFORMED BY: CB [facility] Zjrafg3951 [address] RoadDublin [place] [id number] ALP enzyme act/vol 59 [iU]/L Normal 25-150 [facility] Internal Medicine Work Phone: Comment on above: PATIENT WAS FASTINGP ERFORMED BY: CB [facility] Miykru04[address]Dublin [place] [id number] ALT [Catalytic activity/Vol] 13 U/L Normal 0-32 [facility] Internal Medicine; [facility] Internal Medicine Work Phone: Comment on above: PATIENT WAS FASTINGP ERFORMED BY: CB [facility] Buvupj66[address]Dublin [place] [id number] ALT enzyme act/vol 13 [iU]/L Normal 0-32 [facility] Internal Medicine Work Phone: Comment on above: PATIENT WAS FASTINGP ERFORMED BY: CB [facility] Pjrvmq95[address]Dublin [place] [id number] AST [Catalytic activity/Vol] 20 U/L Normal 0-40 [facility] Internal Medicine; [facility] Internal Medicine Work Phone: Comment on above: PATIENT WAS FASTINGP ERFORMED BY: CB [facility] Aunzyb66[address]Dublin [place] [id number] AST enzyme act/vol 20 [iU]/L Normal 0-40 [facility] Internal Medicine Work Phone: Comment on above: PATIENT WAS FASTINGP ERFORMED BY: CB [facility] Jesvpj3780 [address]Dublin [place] [id number] Bilirubin mass conc 0.4 mg/dL Normal 0.0-1.2 Compr [facility] Internal Medicine Work Phone: Comment on above: PATIENT WAS FASTINGP ERFORMED BY: RUBEN Angy Amaro6370 [facility] [id number] Bilirubin.direct mass conc 0.12 mg/dL Normal 0.00-0.40 [facility] Work Phone: Comment on above: PATIENT WAS FASTINGP ERFORMED BY: RUBEN Amaro6370 [facility] [id number] Protein mass conc 6.7 g/dL Normal 6.0-8.5 Compreh ensive Internal Medicine Work Phone: Comment on above: PATIENT WAS FASTINGP ERFORMED BY: RUBEN Angy Amaro6370 [facility] [id number] Lipid Panel (48271)Ordered B y: Refrigeration Insulator on 01-08-2013 Cholesterol in HDL mass conc 72 mg/dL Normal [facility] Work Phone: Comment on above: According to ATP-III Guidelines, HDL-C >59 mg/dL is considered anegative risk factor for CHD. PATIENT WAS FASTINGP ERFORMED BY: RUBEN Angy Amaro6370 [facility] [id number] Information: [id number] Cholesterol in LDL mass conc 107 mg/dL Abnormal 0-99 [facility] Work Phone: Comment on above: PATIENT WAS FASTINGP ERFORMED BY: RUBEN Lorrie Hmhhdx0907 [facility] [id number] Information: [id number] Cholesterol in LDL/Cholesterol in HDL mass ratio 1.5 {ratio_units} Normal 0.0-3.2 [facility] Work Phone: Comment on above: PATIENT WAS FASTINGP ERFORMED BY: RUBEN Trevinolin6370 [facility] [id number] Information: [id number] Cholesterol in VLDL mass conc 16 mg/dL Normal 5-40 [facility] Work Phone: Comment on above: PATIENT WAS FASTINGP ERFORMED BY: RUBEN [facility] Srwanm[address] [facility] [id number] Information: [id number] Cholesterol mass conc 195 mg/dL Normal 100-199 [facility] prehensive Internal Medicine Work Phone: Comment on above: PATIENT WAS FASTINGP ERFORMED BY: RUBEN [facility] Kfqzka[address] [facility] [id number] Information: [id number] Triglyceride mass conc 82 mg/dL Normal 0-149 [facility] Work Phone: Comment on above: PATIENT WAS FASTINGP ERFORMED BY: RUBEN [facility] Ltarzm8767 [facility] [id number] Information: [id number] LIVEROrdered By: Racheal garrett on 10-09-2012 Albumin mass conc 4.0 g/dL Normal 3.4-5.0 Compreh ensive Internal Medicine Work Phone: ALT enzyme act/vol 45 U/L Normal 12-78 Compre hensive Internal Medicine Work Phone: AST enzyme act/vol 31 U/L Normal 15-37 [facility] Internal Medicine Work Phone: Protein mass conc 7.7 g/dL Normal 6.4-8.2 Compreh ensive Internal Medicine Work Phone: LIVER 0.40 mg/dL Normal 0.00-1.00 [facility] Work Phone: LIVER 79 U/L Normal 50-136 [facility] Work Phone: LIVER 0.11 mg/dL Normal 0.00-0.30 [facility] Work Phone: LIPID PANEL (09313)Ordered B y: Refrigeration Insulator on 09-25-2012 Cholesterol in HDL mass conc 53 mg/dL Normal [facility] Work Phone: Comment on above: According to ATP-III Guidelines, HDL-C >59 mg/dL is considered anegative risk factor for CHD. PATIENT WAS FASTINGP ERFORMED BY: RUBEN [facility] Lbujhf4831 [facility] [id number] Cholesterol in LDL mass conc 88 mg/dL Normal 0-99 [facility] Work Phone: Comment on above: PATIENT WAS FASTINGP ERFORMED BY: RUBEN Angy Amaro[address] [facility] [id number] Cholesterol in LDL/Cholesterol in HDL mass ratio 1.7 {ratio_units} Normal 0.0-3.2 [facility] Work Phone: Comment on above: PATIENT WAS FASTINGP ERFORMED BY: RUBEN Angy [address]vinolin[address] [facility] [id number] Cholesterol in VLDL mass conc 16 mg/dL Normal 5-40 [facility] Work Phone: Comment on above: PATIENT WAS FASTINGP ERFORMED BY: RUBEN Lorriehiro TrevinoFlxvqe9379 [facility] [id number] Cholesterol mass conc 157 mg/dL Normal 100-199 [facility] prehensive Internal Medicine Work Phone: Comment on above: PATIENT WAS FASTINGP ERFORMED BY: RUBEN Lorriehiro Oxnnvk7357 [facility] [id number] Triglyceride mass conc 82 mg/dL Normal 0-149 [facility] Work Phone: Comment on above: PATIENT WAS FASTINGP ERFORMED BY: RUBEN Lorriehiro TrevinoNwuljg1721 [facility] [id number] METABOLIC PANEL, COMPREHENSI VE (44097)Ordered By: Refrigeration Insulator on 09-25-2012 Albumin mass conc 4.0 g/dL Normal 3.5-5.5 Compreh ensive Internal Medicine Work Phone: Comment on above: PATIENT WAS FASTINGP ERFORMED BY: RUBEN [facility] [address]bmza[address] [facility] [id number] Information: [id number] Albumin/Globulin mass ratio 1.4 {ratio} Normal 1.1-2.5 [facility] Work Phone: Comment on above: PATIENT WAS FASTINGP ERFORMED BY: RUBEN [facility] [address]uvpt[address] [facility] [id number] Information: [id number] ALP [Catalytic activity/Vol] 84 U/L Normal 25-150 [facility]; [facility] Internal Medicine Work Phone: Comment on above: PATIENT WAS FASTINGP ERFORMED BY: LabMcl[facility] [facility]in [place] [id number] Information: [id number] ALP enzyme act/vol 84 [iU]/L Normal 25-150 [facility] Internal Medicine Work Phone: Comment on above: PATIENT WAS FASTINGP ERFORMED BY: LabJanice Ville [id number] [facility] [id number] Information: [id number] ALT [Catalytic activity/Vol] 38 U/L Abnormal 0-32 [facility]; [facility] Internal Medicine Work Phone: Comment on above: PATIENT WAS FASTINGP ERFORMED BY: [place] [address] [facility] [id number] Information: [id number] ALT enzyme act/vol 38 [iU]/L Abnormal 0-32 [facility] Internal Medicine Work Phone: Comment on above: PATIENT WAS FASTINGP ERFORMED BY: LabM[facility]6370 [facility] [id number] Information: [id number] AST [Catalytic activity/Vol] 51 U/L Abnormal 0-40 [facility] Internal Medicine; [facility] Internal Medicine Work Phone: Comment on above: PATIENT WAS FASTINGP ERFORMED BY: LabM[facility]6370 [facility] [id number] Information: [id number] AST enzyme act/vol 51 [iU]/L Abnormal 0-40 [facility] Internal Medicine Work Phone: Comment on above: PATIENT WAS FASTINGP ERFORMED BY: LabMcl[facility] [facility] [id number] Information: [id number] Bilirubin mass conc 0.3 mg/dL Normal 0.0-1.2 Compr ensive Internal Medicine Work Phone: Comment on above: PATIENT WAS FASTINGP ERFORMED BY: RUBEN LabCohiro AmaroGdcrvq[address] [facility] [id number] Information: [id number],[id number] Calcium mass conc 9.2 mg/dL Normal 8.7-10.2 Compreh ensive Internal Medicine Work Phone: Comment on above: PATIENT WAS FASTINGP ERFORMED BY: CB [facility] [address]ib[address] [facility] [id number] Information: [id number] Chloride molar conc 100 mmol/L Normal 97-108 Compr ensive Internal Medicine Work Phone: Comment on above: PATIENT WAS FASTINGP ERFORMED BY: RUBEN [facility] Rtwvff8811 [facility] [id number] Information: [id number] CO2 molar conc 25 mmol/L Normal 20-32 Comprehens иван Internal Medicine Work Phone: Comment on above: PATIENT WAS FASTINGP ERFORMED BY: [facility] Cfxepj7836 [facility] [id number] Information: [id number] Creatinine mass conc 0.72 mg/dL Normal 0.57-1.00 Comp [facility] Work Phone: Comment on above: PATIENT WAS FASTINGP ERFORMED BY: [facility] Asgptj2265 [facility] [id number] Information: [id number] GFR/1.73 sq M predicted among blacks CKD-EPI vol rate/area (S/P/Bld) 118 mL/min/1.73 Normal Comprehensiv e Internal Medicine Work Phone: Comment on above: PATIENT WAS FASTINGP ERFORMED BY: CB [facility] P[address]ggl[address] [facility] [id number] Information: [id number] GFR/1.73 sq M predicted among non-blacks CKD-EPI vol rate/area (S/P/Bld) 102 mL/min/1.73 Normal [facility] Work Phone: Comment on above: PATIENT WAS FASTINGP ERFORMED BY: [place] [address] [facility] [id number] Information: [id number] Globulin (S) [Mass/Vol] 2.8 g/dL Normal 1.5-4.5 [facility] Work Phone: Comment on above: PATIENT WAS FASTINGP ERFORMED BY: [address] [id number] Information: [id number],[id number] Globulin Calculated mass conc (S) 2.8 g/dL Normal 1.5-4.5 [facility] Work Phone: Glucose mass conc 92 mg/dL Normal 65-99 Compreh ensive Internal Medicine Work Phone: Comment on above: PATIENT WAS FASTINGP ERFORMED BY: [place] [address] [facility] [id number] Information: [id number] Potassium molar conc 4.2 mmol/L Normal 3.5-5.2 Comp rehensive Internal Medicine Work Phone: Comment on above: PATIENT WAS FASTINGP ERFORMED BY: [place] [address] [facility] [id number] Information: [id number] Protein mass conc 6.8 g/dL Normal 6.0-8.5 Compreh ensive Internal Medicine Work Phone: Comment on above: PATIENT WAS FASTINGP ERFORMED BY: [place] [address] [facility] [id number] Information: [id number] Sodium molar conc 140 mmol/L Normal 134-144 Compreh ensive Internal Medicine Work Phone: Comment on above: PATIENT WAS FASTINGP ERFORMED BY: [place] [address] [facility] [id number] Information: [id number] Urea nitrogen mass conc 12 mg/dL Normal 6-24 [facility] Work Phone: Comment on above: PATIENT WAS FASTINGP ERFORMED BY: RUBEN OliverCohiro AmaroOkcfja2666 Sh[address] Roadblin [place] [id number] Information: [id number] Urea nitrogen/Creatinine mass ratio 17 mg/mg Normal 9-23 [facility] Work Phone: Comment on above: PATIENT WAS FASTINGP ERFORMED BY: RUBEN [facility] Mqkxsc[address] [facility] [place] [id number] Information: [id number] TSH (98436)Ordered By: Borise m Business Sales Consultant on 09-25-2012 Thyrotropin Qn 1.270 {uIU/mL} Normal 0.450-4.500 [facility] Internal Medicine Work Phone: Comment on above: PATIENT WAS FASTINGP ERFORMED BY: RUBEN [facility] Utkqhf[address] [facility] [place] [id number] Vitamin D Hydroxy (26918)Ord ered By: Refrigeration Insulator on 09-25-2012 25-Hydroxyvitamin D2+25-Hydroxyvitamin D3 mass conc 43.2 ng/mL Normal 30.0-100.0 [facility] Work Phone: Comment on above: Vitamin D deficiency has been defined by the [place] of[place]icine and an Endocrine Society practice guideline as alevel of serum 25-OH vitamin D less than 20 ng/mL (1,2).The Endocrine Society went on to further define vitamin Dinsufficiency as a level between 21 and 29 ng/mL (2).1. IOM ([place] of [employer]). 2010. Dietary reference intakes for calcium and D. [place]: The National Academies Press.2. Krystal MF, Ashtyn NC, Cassandra FLEMING, et al. Evaluation, treatment, and prevention of vitamin D deficiency: an Endocrine Society clinical practice guideline. JCEM. 2010; 96(7):1911-30. PATIENT WAS FASTINGP ERFORMED BY: [facility] Opekvk[address] [facility] [place] [id number] Lab Report: BMPon 07-01-2012 Calcium 9.1 mg/dL Normal 8.5-10.1 [facility] Surgical [facility] Work Phone: Chloride 101 mmol/L Normal 98-107 [facility] Work Phone: CO2 6 mmol/L Normal 5-15 [facility] Work Phone: Creatinine 0.8 mg/dL Normal 0.6-1.0 [facility] Surgical [facility] Work Phone: Glucose mass conc 90 mg/dL Normal 70-110 [facility] Elizabeth gical [facility] Work Phone: Potassium molar conc 3.8 mmol/L Normal 3.5-5.1 [facility] Surgical [facility] Work Phone: Sodium 138 mmol/L Normal 136-145 [facility] Surgical [facility] Work Phone: Urea nitrogen 19 mg/dL High 7-18 [facility] Surgica l [facility] Work Phone: Lab Report: CBCon 07-01-2012 Erythrocytes (RBC) 3.96 10*6/uL Low 4.2-5.4 [facility] Surgical [facility] Work Phone: Hematocrit (HCT) 38.2 % Normal 37-47 [facility] Surg ical [facility] Work Phone: Hemoglobin mass conc (Bld) 12.2 g/dL Normal 12.0-15.0 [facility] Work Phone: Platelets 321 10*3/mm3 Normal 150-450 [facility] Work Phone: WBC (Leukocytes) 7.5 10*3/uL Normal 4.4-11.0 [facility] Work Phone: Lab Report: PTon 07-01-2012 INR Coag RelTime (PPP) 1.0 {INR} Normal [facility] Surgical [facility] Work Phone: PTP 12.4 SECONDS Normal 11.9-14.4 [facility] Surgical [facility] Work Phone: Lab Report: PTTon 07-01-2012 aPTT 29.7 s Normal 24.1-36.2 [facility] Surgical [facility] Work Phone: Replaced Document: Midmark E CG Observationson 06-17-2012 EKG QRS axis 52 deg Invalid Interpretation Code [facility] [employer] Work Phone: Interpretation Sinus Rhythm -Short [place] syndrome Evelia = 118BORDERLINE RHYTHM Invalid Interpretation Code [facility] [employer] Work Phone: P [place] 44 deg Invalid Interpretation Code [facility] [employer] Work Phone: IL Interval 118 ms Invalid Interpretation Code [facility] [employer] Work Phone: Pulse (Heart Rate) 81 /min Invalid Interpretation Code [facility] [employer] Work Phone: Pulse (Heart Rate) 386 ms Invalid Interpretation Code [facility] [employer] Work Phone: QRS Duration 94 ms Invalid Interpretation Code [facility] [employer] Work Phone: QT Interval new path ms Invalid Interpretation Code [facility] [employer] Work Phone: T [place] 37 deg Invalid Interpretation Code [facility] [employer] Work Phone: MYOCARD PERF STRESS/REST MUL TOrdered By: Refrigeration Insulator on 05-26-2012 MYOCARD PERF STRESS/REST MULT See Note Normal [facility] Work Phone: Comment on above: MYOCARDIAL PERFUSION SCAN TECHNIQUEThe patient was injected [...] long, vertical long and short axes views. Gated Cardiolitestudy at peak stress was obtained. INTERPRETATIONRest and stress SPECT Cardiolite nuclear imaging demonstrate extracardiac/hepatic and gastrointestinal tracer uptake noted near the inferiorsegments. There was also notation of an area of diminished tracer uptakein portions of the basal anteroseptum/basal inferior septum as well asthe distal anteroseptal segments. Status post stress there is notationof diminished tracer uptake in portions of the basal anteroseptum/inferior septum. Otherwise the previously noted changes in the distalanteroseptal areas appear to be improved and/or normalized. There is endsystolic thickening and brightening. The gated Cardiolite studydemonstrates myocardial thickening and inward wall motion. The reportedLVEF is 63%. The aforementioned findings appear compatible with theeffects of shifting soft tissue attenuation/artifact being somewhat moreprominent at rest as opposed to stress with no myocardial perfusionchanges considered diagnostic for stress induced myocardial ischemia orprevious myocardial injury/infarction. IMPRESSION1. Rest and stress SPECT Cardiolite nuclear imaging demonstratemyocardial perfusion changes appearing compatible with the effects ofshifting soft tissue attenuation/artifact being more prominent at rest asopposed to stress with no myocardial perfusion changes considereddiagnostic for stress induced myocardial ischemia or previous myocardialinjury/infarction.2. The gated Cardiolite study reports an LVEF of 63%. Comment: The above ETT / imaging study was discussed with Dr. Bills. Dictated on 05/26/12 0951 by Yonathan Reed MDTranscribed on 05/26/12 1219 by [place]mira MCCRACKEN by Brianna ACKERMAN,Yonathan on 05/26/12 1236 Sign by: Yonathan Reed MD Systemic Lupus Profile (8623 5)Ordered By: Refrigeration Insulator on 05-26-2012 Chromatin Ab Qn <0.2 Normal 0.0-0.9 [facility] Internal Medicine Work Phone: Comment on above: PATIENT NOT FASTINGP ERFORMED BY: CB [facility] Cppich6533 [facility] [id number] Information: [id number] DNA double strand Ab Qn (S) 1 {IU/mL} Normal 0-9 [facility] Work Phone: Comment on above: Negative <5 Equivoca l 5 - 9 Positive >9 PATIENT NOT FASTINGP ERFORMED BY: Tiggly [facility] Ruhqgq9171 [facility] [id number] Information: [id number] DNA double strand Ab Qn (S) 1 [IU]/mL Normal 0-9 [facility]; [facility] Work Phone: Comment on above: Negative <5 Equivoca l 5 - 9 Positive >9 PATIENT NOT FASTINGP ERFORMED BY: RUBEN Amaro[address] [facility] [place] [id number] Information: [id number] Rheumatoid factor Qn 11.4 {IU/mL} Normal 0.0-13.9 [facility]zgib[facility] hospitalehensive [facility] Medicine Work Phone: Comment on above: PATIENT NOT FASTINGP ERFORMED BY: RUBEN [facility] Bsngqs[address] [facility] [id number] Information: [id number] Rheumatoid factor Qn 11.4 [IU]/mL Normal 0.0-13.9 [facility]ib[facility] hospitalehens[facility]; [facility] Work Phone: Comment on above: PATIENT NOT FASTINGP ERFORMED BY: RUBEN LabCo Vitxwq[address] [facility] [id number] Information: [id number] Ribonucleoprotein extractable nuclear Ab Qn (S) 1.4 {AI} Abnormal 0.0-0.9 [facility] Work Phone: Comment on above: PATIENT NOT FASTINGP ERFORMED BY: RUBEN MelodyCo Zzvddd0263 [facility] [id number] Information: [id number] Sjogrens syndrome-A extractable nuclear Ab Qn (S) <0.2 Normal 0.0-0.9 [facility] Work Phone: Comment on above: PATIENT NOT FASTINGP ERFORMED BY: CB [facility] Obcrpm0173 [address] [facility] [place] [id number] Information: [id number] Sjogrens syndrome-B extractable nuclear Ab Qn (S) <0.2 Normal 0.0-0.9 [facility] Work Phone: Comment on above: PATIENT NOT FASTINGP ERFORMED BY: RUBEN [facility] Nvnzve4694 [facility] [id number] Information: [id number] Saavedra extractable nuclear Ab Qn (S) <0.2 Normal 0.0-0.9 [facility] Work Phone: Comment on above: PATIENT NOT FASTINGP ERFORMED BY: RUBEN [facility] Wjdqxx9412 [facility] [id number] Information: [id number] ELVA (ANTINUCLEAR ANTIBODY) ( [id number])Ordered By: Refrigeration Insulator on 05-22-2012 Nuclear Ab Ql (S) Positive Abnormal Compreh ensive Internal Medicine Work Phone: Comment on above: PATIENT NOT FASTINGP ERFORMED BY: CB [facility] [id number] [facility] [id number] Nuclear Ab Ql (S) Positive Abnormal Compreh ensive Internal Medicine; [facility] Work Phone: Comment on above: PATIENT NOT FASTINGP ERFORMED BY: CB [facility] Wxiiot7938 [facility] [id number] C-REACTIVE PROTEIN ([id number])Or dered By: Refrigeration Insulator on 05-22-2012 CRP mass conc 2.6 mg/L Normal 0.0-4.9 Comprehensi Internal Medicine Work Phone: Comment on above: PATIENT NOT FASTINGP ERFORMED BY: CB [facility] Jnzkja7305 [facility] [id number] CALCIFIDIOL (10767) VIT D 25 Ordered By: Refrigeration Insulator on 05-22-2012 25-Hydroxyvitamin D2+25-Hydroxyvitamin D3 mass conc 36.6 ng/mL Normal 30.0-100.0 [facility] Work Phone: Comment on above: Vitamin D deficiency has been defined by the [place] of[place] and an Endocrine Society practice guideline as alevel of serum 25-OH vitamin D less than 20 ng/mL (1,2).The Endocrine Society went on to further define vitamin Dinsufficiency as a level between 21 and 29 ng/mL (2).1. IOM ([place] of [employer]). 2010. Dietary reference intakes for calcium and D. [place]: The National Academies Press.2. Krystal MF, Ashtyn NC, Cassandra FLEMING, et al. Evaluation, treatment, and prevention of vitamin D deficiency: an Endocrine Society clinical practice guideline. JCEM. 2010; 96(7):1911-30. PATIENT NOT FASTINGP ERFORMED BY: [facility] Mteekp8062 [address] RoadDublin [place] [id number] CBC (AUTO) (37758)Ordered By : Refrigeration Insulator on 05-22-2012 Erythrocyte distribution width (RBC) [Ratio] 13.4 % Normal 12.3-15.4 [facility] Work Phone: Comment on above: PATIENT NOT FASTINGP ERFORMED BY: [facility] Damzmc3473 [address] RoadDublin [place] [id number] Erythrocyte distribution width Auto Ratio (RBC) 13.4 % Normal 12.3-15.4 [facility] Work Phone: Hematocrit (Bld) [Volume fraction] 39.2 % Normal 34.0-46.6 [facility] Internal Medicine Work Phone: Comment on above: PATIENT NOT FASTINGP ERFORMED BY: Lab[facility] Ymgaqh5052 [address] RoadUnc Health Pardeein [place] [id number] Hematocrit Auto Volume Fraction (Bld) 39.2 % Normal 34.0-46.6 [facility] Internal Medicine Work Phone: Hemoglobin mass conc (Bld) 13.0 g/dL Normal 11.1-15.9 [facility] Internal Medicine Work Phone: Comment on above: PATIENT NOT FASTINGP ERFORMED BY: Lab[facility] Jncdek0698 [address]blin [place] [id number] MCH (RBC) [Entitic mass] 30.9 pg Normal 26.6-33.0 [facility] Work Phone: Comment on above: PATIENT NOT FASTINGP ERFORMED BY: [facility] Ddhnnv2544 [address] RoadDublin [place] [id number] MCH Auto Entitic mass (RBC) 30.9 pg Normal 26.6-33.0 [facility] Internal Medicine Work Phone: MCHC (RBC) [Mass/Vol] 33.2 g/dL Normal 31.5-35.7 [facility] Internal Medicine Work Phone: Comment on above: PATIENT NOT FASTINGP ERFORMED BY: CB [facility] Aotmsg3683 [address] RoadDublin [place] [id number] MCHC Auto mass conc (RBC) 33.2 g/dL Normal 31.5-35.7 [facility] Internal Medicine Work Phone: MCV (RBC) [Entitic vol] 93 fL Normal 79-97 [facility] Work Phone: Comment on above: PATIENT NOT FASTINGP ERFORMED BY: CB [facility] Kaujky8284 [address] RoadDublin [place] [id number] MCV Auto Entitic volume (RBC) 93 fL Normal 79-97 [facility] Internal Medicine Work Phone: Platelets (Bld) [#/Vol] 370 {x10E3/uL} Normal 140-415 [facility] Work Phone: Comment on above: PATIENT NOT FASTINGP ERFORMED BY: CB [facility] Pitwys4005 [address] RoadDublin [place] [id number] Platelets (Bld) [#/Vol] 370 10*3/uL Normal 140-415 [facility]; [facility] Work Phone: Comment on above: PATIENT NOT FASTINGP ERFORMED BY: CB [facility] Opmrtx3056 [address] RoadDublin [place] [id number] Platelets Auto #/vol (Bld) 370 {x10E3/uL} Normal 140-415 [facility] Work Phone: RBC (Bld) [#/Vol] 4.21 {x10E6/uL} Normal 3.77-5.28 [facility] Internal Medicine Work Phone: Comment on above: PATIENT NOT FASTINGP ERFORMED BY: CB [facility] Zumywi4529 [address] RoadDublin [place] [id number] RBC (Bld) [#/Vol] 4.21 10*6/uL Normal 3.77-5.28 [facility] Internal Medicine; [facility] Work Phone: Comment on above: PATIENT NOT FASTINGP ERFORMED BY: RUBEN [facility] Cxqsjb5526 Hsukla RoadUnc Health Pardeein [place] [id number] RBC Auto #/vol (Bld) 4.21 {x10E6/uL} Normal 3.77-5.28 [facility] Work Phone: WBC (Bld) [#/Vol] 6.7 {x10E3/uL} Normal 4.0-10.5 [facility] pre[facility] Work Phone: Comment on above: PATIENT NOT FASTINGP ERFORMED BY: RUBEN [facility] Gblxoz0087 [address] [facility] [place] [id number] WBC (Bld) [#/Vol] 6.7 10*3/uL Normal 4.0-10.5 [facility] Internal [facility]; [facility] Work Phone: Comment on above: PATIENT NOT FASTINGP ERFORMED BY: RUBEN [facility] Yhacfz[address] [facility] [id number] WBC Auto #/vol (Bld) 6.7 {x10E3/uL} Normal 4.0-10.5 [facility] Work Phone: Clinical Lists Update: Prelo cnc manager 05-22-2012 Thyroid stimulating hormone (TSH) 1.48 u[iU]/mL Invalid Interpretation Code [facility] Work Phone: Alanine aminotransferase (ALT) 18 U/L Normal 0-32 [facility] Work Phone: Comment on above: Please note refere nce interval change PATIENT NOT FASTINGP ERFORMED BY: RUBEN [facility] Pyqkzh[address] [facility] [id number] Information: [id number] Alkaline phosphatase (ALP) 49 U/L Normal 25-150 [facility] Work Phone: Comment on above: PATIENT NOT FASTINGP ERFORMED BY: RUBEN [facility] Nzrjdp87[address] [facility] [id number] Information: [id number] Aspartate aminotransferase (AST) 25 U/L Normal 0-40 [facility] Work Phone: Comment on above: PATIENT NOT FASTINGP ERFORMED BY: RUBEN [facility] Znohip6600 [address] [facility] [place] [id number] Information: [id number] Bilirubin (total) 0.4 mg/dL Normal 0.0-1.2 [facility] Work Phone: Comment on above: PATIENT NOT FASTINGP ERFORMED BY: CB [facility] Eiwywc[address] [facility] [id number] Information: [id number] CO2 24 mmol/L Normal 20-32 [facility] Work Phone: Comment on above: PATIENT NOT FASTINGP ERFORMED BY: RUBEN [facility] Kspnuz[address] [facility] [id number] Information: [id number] DDIMQOrdered By: System Berkley garrett on 05-22-2012 DDIMQ <0.22 Normal 0.22-0.48 [facility] Work Phone: Comment on above: NORMAL D-Dimer level indicates no DVT or PE. Folate (93435)Ordered By: Vook stem Business Sales Consultant on 05-22-2012 Folate mass conc ng/mL Normal Comprehe nsive Internal Medicine Work Phone: Comment on above: A serum folate lucius ntration of less than 3.1 ng/mL isconsidered to represent clinical deficiency. PATIENT NOT FASTINGP ERFORMED BY: CB [facility] Jmtubb2072 [facility] [id number] METABOLIC PANEL, COMPREHENSI VE (30989)Ordered By: Refrigeration Insulator on 05-22-2012 Albumin mass conc 4.7 g/dL Normal 3.5-5.5 Compreh ensive Internal Medicine Work Phone: Comment on above: PATIENT NOT FASTINGP ERFORMED BY: CB [facility] Arszqv[address] [facility] [id number] Information: [id number] Albumin/Globulin mass ratio 1.7 {ratio} Normal 1.1-2.5 [facility] Work Phone: Comment on above: PATIENT NOT FASTINGP ERFORMED BY: RUBEN Amaro6370 [facility] [id number] Information: [id number] ALP enzyme act/vol 49 [iU]/L Normal 25-150 [facility] Internal [facility] Work Phone: Comment on above: PATIENT NOT FASTINGP ERFORMED BY: RUBEN OliverCohiro TrevinoPomcvi7545 [facility] [id number] Information: [id number] ALT enzyme act/vol 18 [iU]/L Normal 0-32 [facility] Work Phone: Comment on above: Please note refere nce interval change PATIENT NOT FASTINGP ERFORMED BY: RUBEN Trevinolin6370 [facility] [id number] Information: [id number] AST enzyme act/vol 25 [iU]/L Normal 0-40 [facility] Work Phone: Comment on above: PATIENT NOT FASTINGP ERFORMED BY: RUBEN Trevinolin6370 [facility] [id number] Information: [id number] Calcium mass conc 9.8 mg/dL Normal 8.7-10.2 [facility] Internal Medicine Work Phone: Comment on above: PATIENT NOT FASTINGP ERFORMED BY: RUBEN LabManan Ogahzw1672 [facility] [id number] Information: [id number] Chloride molar conc 103 mmol/L Normal 97-108 [facility] Internal Medicine Work Phone: Comment on above: PATIENT NOT FASTINGP ERFORMED BY: RUBEN Trevinolin6370 [facility] [id number] Information: [id number] Creatinine mass conc 0.87 mg/dL Normal 0.57-1.00 [facility] Internal Medicine Work Phone: Comment on above: PATIENT NOT FASTINGP ERFORMED BY: RUBEN [facility] Svonos[address] [facility] [id number] Information: [id number] GFR/1.73 sq M predicted among blacks CKD-EPI vol rate/area (S/P/Bld) 94 mL/min/1.73 Normal Comprehensiv e Internal Medicine Work Phone: Comment on above: PATIENT NOT FASTINGP ERFORMED BY: CB [facility] Tbcgte[address] [facility] [id number] Information: [id number] GFR/1.73 sq M predicted among non-blacks CKD-EPI vol rate/area (S/P/Bld) 82 mL/min/1.73 Normal [facility] Work Phone: Comment on above: PATIENT NOT FASTINGP ERFORMED BY: RUBEN [facility] Lzbmlm2526 [facility] [id number] Information: [id number] Globulin (S) [Mass/Vol] 2.7 g/dL Normal 1.5-4.5 [facility] Work Phone: Comment on above: PATIENT NOT FASTINGP ERFORMED BY: RUBEN [facility] Llzzmt1435 [facility] [id number] Information: [id number] Globulin Calculated mass conc (S) 2.7 g/dL Normal 1.5-4.5 [facility] Work Phone: Glucose mass conc 88 mg/dL Normal 65-99 Compreh ensive Internal Medicine Work Phone: Comment on above: PATIENT NOT FASTINGP ERFORMED BY: CB [facility] Yajtnx[address] [facility] [id number] Information: [id number] Potassium molar conc 4.4 mmol/L Normal 3.5-5.2 Comp rehensive Internal Medicine Work Phone: Comment on above: PATIENT NOT FASTINGP ERFORMED BY: CB [facility] Frakml[address] [facility] [id number] Information: [id number] Protein mass conc 7.4 g/dL Normal 6.0-8.5 Compreh ensive Internal Medicine Work Phone: Comment on above: PATIENT NOT FASTINGP ERFORMED BY: RUBEN [facility] Vocabp4744 [address] RoadDublin [place] [id number] Information: [id number] Sodium molar conc 143 mmol/L Normal 134-144 Compreh ensive Internal Medicine Work Phone: Comment on above: PATIENT NOT FASTINGP ERFORMED BY: CB [facility] Mwpqtd7855 [address] RoadDublin [place] [id number] Information: [id number] Urea nitrogen mass conc 16 mg/dL Normal 6-24 [facility] Work Phone: Comment on above: PATIENT NOT FASTINGP ERFORMED BY: CB [facility] Dpypyh8408 [address] RoadDublin [place] [id number] Information: [id number] Urea nitrogen/Creatinine mass ratio 18 mg/mg Normal 9-23 [facility] Work Phone: Comment on above: PATIENT NOT FASTINGP ERFORMED BY: RUBEN [facility] Xcpzae6829 [address] RoadDublin [place] [id number] Information: [id number] RHEUMATOID FACTOR-QUANT (869 95)Ordered By: Refrigeration Insulator on 05-22-2012 Rheumatoid factor Qn 10.5 {IU/mL} Normal 0.0-13.9 [facility] fitzgib[facility] hospitalehensive Internal Medicine Work Phone: Comment on above: PATIENT NOT FASTINGP ERFORMED BY: CB [facility] Jdrcvh3781 [address] RoadDublin [place] [id number] Rheumatoid factor Qn 10.5 [IU]/mL Normal 0.0-13.9 Co mprehensive Internal Medicine; [facility] Work Phone: Comment on above: PATIENT NOT FASTINGP ERFORMED BY: CB [facility] Fhslev2981 [address] RoadDublin [place] [id number] SED RATE ERYTHROCYTE (02484) Ordered By: Refrigeration Insulator on 05-22-2012 ESR Velocity (Bld) 2 mm/h Normal 0-32 [facility] Internal Medicine Work Phone: Comment on above: PATIENT NOT FASTINGP ERFORMED BY: RUBEN BlogGlue Vdahkf8435 [facility] [id number] TSH ([id number])Ordered By: Syste m Business Sales Consultant on 05-22-2012 Thyrotropin Qn 1.480 {uIU/mL} Normal 0.450-4.500 Compr [facility] Internal Medicine Work Phone: Comment on above: PATIENT NOT FASTINGP ERFORMED BY: RUBEN [facility] Yzugav8413 [address] [facility] [id number] VITAMIN B-12 (CYANOCOBALAMIN ) ([id number])Ordered By: Refrigeration Insulator on 05-22-2012 Cobalamin (Vitamin B12) mass conc 613 pg/mL Normal 211-946 [facility] Work Phone: Comment on above: PATIENT NOT FASTINGP ERFORMED BY: RUBEN [facility] Kkpukk6323 [address] MozyUNC [facility] [id number] Vital Signs Date Time Vital Sign Value Performing Clinician Facility 09-08-2024 08:12-0500 Body height 167.[address] Gloria Bills DO Work Phone: [facility] 09-08-2024 08:05-0500 Body mass index (BMI) [Ratio] 29.3 kg/m2 Dr. Gloria Bills DO Work Phone: [facility] 09-08-2024 08:05-0500 Body weight 82.[address] Gloria Bills DO Work Phone: [facility] 09-08-2024 08:05-0500 Diastolic blood pressure 76 mm[Hg] Dr. Gloria Bills DO Work Phone: [facility] 09-08-2024 08:05-0500 Systolic blood pressure 120 mm[Hg] Dr. Gloria Bills DO Work Phone: [facility] 06-27-2024 13:52-0500 Body mass index (BMI) [Ratio] 29.2 kg/m2 Dr. Gloria Bills DO Work Phone: [facility] 06-27-2024 13:52-0500 Body temperature 99.2 [degF] Dr. Gloria Bills DO Work Phone: [facility] 06-27-2024 13:52-0500 Body weight 82.[address] Gloria Bills DO Work Phone: [facility] 06-27-2024 13:52-0500 Diastolic blood pressure 72 mm[Hg] Dr. Gloria Bills DO Work Phone: [facility] 06-27-2024 13:52-0500 Heart rate 63 /min Dr. Gloria Bills DO Work Phone: [facility] 06-27-2024 13:52-0500 Respiratory rate 16 /min Dr. Gloria Bills DO Work Phone: [facility] 06-27-2024 13:52-0500 SaO2% (BldA) [Mass fraction] 98 % Dr. Gloria Bills DO Work Phone: [facility] 06-27-2024 13:52-0500 Systolic blood pressure 128 mm[Hg] Dr. Gloria Bills DO Work Phone: [facility] 09-02-2023 14:30-0500 Body height 167.[address] Gloria Bills Work Phone: [facility] 09-02-2023 14:30-0500 Diastolic blood pressure 90 mm[Hg] Dr. Gloria Bills Work Phone: [facility] 09-02-2023 14:30-0500 Systolic blood pressure 138 mm[Hg] Dr. Gloria Bills Work Phone: [facility] 09-02-2023 14:18-0500 Body mass index (BMI) [Ratio] 30.4 kg/m2 Dr. Gloria Bills Work Phone: [facility] 09-02-2023 14:18-0500 Body weight 85.[address] Gloria Bills Work Phone: [facility] 04-24-2023 07:07-0400 Body height 168.28 cm ANDREA Machado LPN [facility]; [facility] Work Phone: 04-24-2023 07:07-0400 Body mass index (BMI) [Ratio] 30.76 kg/m2 ANDREA Machado LPN [facility]; [facility] Work Phone: 04-24-2023 07:07-0400 Body surface area Derived from formula 1.97 m2 ANDREA Machado LPN [facility]; [facility] Work Phone: 04-24-2023 07:07-0400 Body temperature 97.9 [degF] ANDREA aMchado LPN Comprehensiv e Internal Medicine; [facility] Work Phone: Comment on above: Method: Temporal 04-24-2023 07:07-0400 Body weight 87.09 kg ANDREA Machado LPN [facility]; [facility] Work Phone: 04-24-2023 07:07-0400 Diastolic blood pressure 78 mm[Hg] ANDREA Machado LPN [facility]; [facility] Work Phone: Comment on above: Patient Position: Sitting; Cuff Location : Left Arm; Cuff Size: Standard 04-24-2023 07:07-0400 Heart rate 80 /min ANDREA Machado LPN [facility]; [facility] Work Phone: Comment on above: Pattern: Regular 04-24-2023 07:07-0400 Respiratory rate 16 /min ANDREA Machado LPN Comprehensiv e [facility]; [facility] Work Phone: Comment on above: Pattern: Unlabored 04-24-2023 07:07-0400 SaO2% (BldA) [Mass fraction] 98 % ANDREA Machado LPN [facility]; [facility] Work Phone: Comment on above: Room air 04-24-2023 07:07-0400 Systolic blood pressure 126 mm[Hg] ANDREA Machado LPN [facility]; [facility] Work Phone: Comment on above: Patient Position: Sitting; Cuff Location : Left Arm; Cuff Size: Standard 03-04-2023 08:26-0400 Body height 168.28 cm Candace Hess MA [facility]; [facility] Work Phone: 03-04-2023 08:26-0400 Body mass index (BMI) [Ratio] 29.63 kg/m2 Candace Hess MA [facility]; [facility] Work Phone: 03-04-2023 [id number]:260400 Body surface area Derived from formula 1.94 m2 Candace Hess MA [facility]; [facility] Work Phone: 03-04-2023 08:26-0400 Body temperature 95.1 [degF] Candace Hess MA [facility]; [facility] Work Phone: 03-04-2023 08:26-0400 Body weight 83.92 kg Candace Hess MA [facility]; [facility] Work Phone: 03-04-2023 08:26-0400 Diastolic blood pressure 70 mm[Hg] Candace Hess MA [facility]; [facility] Work Phone: Comment on above: Patient Position: Sitting; Cuff Location : Left Arm; Cuff Size: Standard 03-04-2023 08:26-0400 Heart rate 74 /min Candace Hess MA [facility]; [facility] Work Phone: Comment on above: Pattern: Regular 03-04-2023 08:26-0400 SaO2% (BldA) [Mass fraction] 99 % Candace Hess MA [facility]; [facility] Work Phone: Comment on above: Room air 03-04-2023 08:26-0400 Systolic blood pressure 102 mm[Hg] Candace Hess MA [facility]; [facility] Work Phone: Comment on above: Patient Position: Sitting; Cuff Location : Left Arm; Cuff Size: Standard 12-25-2022 08:26-0400 Body height 167.64 cm [facility] 11-26-2022 08:07-0400 Body height 168.28 cm Samantha Slarb COLORIST [facility]; [facility] Work Phone: 11-26-2022 08:07-0400 Body mass index (BMI) [Ratio] 29.63 kg/m2 Samantha Slarb COLORIST [facility]; [facility] Work Phone: 11-26-2022 08:07-0400 Body surface area Derived from formula 1.94 m2 Samantha Slarb COLORIST [facility]; [facility] Work Phone: 11-26-2022 08:07-0400 Body temperature 97.4 [degF] Samantha Slarb COLORIST [facility]; [facility] Work Phone: Comment on above: Method: Temporal 11-26-2022 08:07-0400 Body weight 83.92 kg Samantha Slarb COLORIST [facility]; [facility] Work Phone: 11-26-2022 08:07-0400 Diastolic blood pressure 72 mm[Hg] Samantha Slarb COLORIST [facility]; [facility] Work Phone: Comment on above: Patient Position: Sitting; Cuff Location : Left Arm; Cuff Size: Standard 11-26-2022 08:07-0400 Heart rate 71 /min Samantha Slarb COLORIST [facility]; [facility] Work Phone: Comment on above: Pattern: Regular 11-26-2022 08:07-0400 Respiratory rate 17 /min Samantha Slarb COLORIST [facility]; [facility] Work Phone: Comment on above: Pattern: Unlabored 11-26-2022 08:07-0400 SaO2% (BldA) [Mass fraction] 96 % Samantha Slarb COLORIST [facility]; [facility] Work Phone: Comment on above: Room air 11-26-2022 08:07-0400 Systolic blood pressure 116 mm[Hg] Samantha Slarb COLORIST [facility]; [facility] Work Phone: Comment on above: Patient Position: Sitting; Cuff Location : Left Arm; Cuff Size: Standard 10-25-2022 07:12-0400 Body height 168.28 cm Samantha Ayesharb COLORIST [facility]; [facility] Work Phone: 10-25-2022 07:12-0400 Body mass index (BMI) [Ratio] 29.47 kg/m2 Samantha Slarb COLORIST [facility]; [facility] Work Phone: 10-25-2022 07:120400 Body surface area Derived from formula 1.94 m2 Samantha Slarb COLORIST [facility]; [facility] Work Phone: 10-25-2022 07:12-0400 Body temperature 97.1 [degF] Samantha Slarb COLORIST [facility]; [facility] Work Phone: Comment on above: Method: Temporal 10-25-2022 07:12-0400 Body weight 83.46 kg Samantha Hodgerb COLORIST [facility]; [facility] Work Phone: 10-25-2022 07:12-0400 Diastolic blood pressure 76 mm[Hg] Samantha Slarb COLORIST [facility]; [facility] Work Phone: Comment on above: Patient Position: Sitting; Cuff Location : Left Arm; Cuff Size: Standard 10-25-2022 07:12-0400 Heart rate 71 /min Samantha Slarb COL[facility]IST [facility]; [facility] Work Phone: Comment on above: Pattern: Regular 10-25-2022 07:12-0400 Respiratory rate 16 /min Samantha Slarb [facility]; [facility] Work Phone: Comment on above: Pattern: Unlabored 10-25-2022 07:12-0400 SaO2% (BldA) [Mass fraction] 98 % Samantha Slarb [facility]; [facility] Work Phone: Comment on above: Room air 10-25-2022 07:12-0400 Systolic blood pressure 118 mm[Hg] Samantha Causey [facility]; [facility] Work Phone: Comment on above: Patient Position: Sitting; Cuff Location : Left Arm; Cuff Size: Standard 01-17-2022 07:09-0400 [facility] Work Phone: 01-17-2022 07:09-0400 Body mass index (BMI) [Ratio] 28.99 kg/m2 [facility]; [facility] Work Phone: 01-17-2022 07:090400 Body surface area Derived from formula 1.92 m2 [facility]; [facility] Work Phone: 01-17-2022 07:09-0400 Body weight 82.1 kg [facility]; [facility] Work Phone: 01-17-2022 07:09-0400 Diastolic blood pressure 80 mm[Hg] [facility]; [facility] Work Phone: Comment on above: Patient Position: Sitting; Cuff Location : Left Arm; Cuff Size: Standard 01-17-2022 07:09-0400 Heart rate 83 /min [facility]; [facility] Work Phone: Comment on above: Pattern: Regular 01-17-2022 07:09-0400 Respiratory rate 16 /min [facility] Com[facility]; [facility] Work Phone: Comment on above: Pattern: Unlabored 01-17-2022 07:09-0400 SaO2% (BldA) [Mass fraction] 98 % [facility]; [facility] Work Phone: Comment on above: Room air 01-17-2022 07:09-0400 Systolic blood pressure 124 mm[facility]Hg] [facility] Work Phone: Comment on above: Patient Position: Sitting; Cuff Location : Left Arm; Cuff Size: Standard 07-26-2021 06:59-0500 Body height 168.28 cm Kady Garsia [facility] Internal Medicine; [facility] Work Phone: Comment on above: virtual, reported by pt 07-26-2021 06:59-0500 Body mass index (BMI) [Ratio] 28.11 kg/m2 [facility]; [facility] Work Phone: Comment on above: virtual, reported by pt 07-26-2021 06:59-0500 Body surface area Derived from formula 1.9 m2 Kady [facility] Internal Medicine; [facility] Work Phone: Comment on above: virtual, reported by pt 07-26-2021 06:59-0500 Body temperature 97.4 [degF] Kadytiffanie Garsia [facility] Work Phone: Comment on above: Method: Temporal virtual, reported by pt 07-26-2021 06:59-0500 Body weight 79.61 kg Kadytiffanie Garsia [facility] Internal Medicine; [facility] Medicine Work Phone: Comment on above: virtual, reported by pt 07-26-2021 06:59-0500 Heart rate 85 /min Kadytiffanie Garsia [facility] Internal Medicine; [facility] Medicine Work Phone: Comment on above: Pattern: Regular virtual, reported by pt 07-26-2021 06:59-0500 SaO2% (BldA) [Mass fraction] 96 % [facility]; [facility] Work Phone: Comment on above: Room air virtual, reported by pt 01-19-2021 07:27-0400 Body height 168.28 cm Mayuri [facility]; [facility] Work Phone: 01-19-2021 07:27-0400 Body mass index (BMI) [Ratio] 23.79 kg/m2 Mayuri [facility] Internal Medicine; [facility] Work Phone: 01-19-2021 07:27-0400 Body surface area Derived from formula 1.77 m2 Mayuri Hwang CMA [facility]; [facility] Work Phone: 01-19-2021 07:27-0400 Body temperature 97.3 [degF] Mayuri Hwang CMA [facility]; [facility] Work Phone: Comment on above: Method: Infrared 01-19-2021 07:27-0400 Body weight 67.36 kg Mayuri Hwang CMA [facility]; [facility] Work Phone: 01-19-2021 07:27-0400 Diastolic blood pressure 80 mm[Hg] Mayuri Hwang CMA [facility]; [facility] Work Phone: Comment on above: Patient Position: Sitting; Cuff Location : Left Arm; Cuff Size: Standard 01-19-2021 07:27-0400 Heart rate 85 /min Mayuri Hwang CMA [facility]; [facility] Work Phone: Comment on above: Pattern: Regular 01-19-2021 07:27-0400 Respiratory rate 16 /min Mayuri Hwang CMA [facility]; [facility] Work Phone: Comment on above: Pattern: Unlabored 01-19-2021 07:27-0400 SaO2% (BldA) [Mass fraction] 97 % Mayuri Hwang CMA [facility]; [facility] Work Phone: Comment on above: Room air 01-19-2021 07:27-0400 Systolic blood pressure 122 mm[Hg] Mayuri Hwang CMA [facility]; [facility] Work Phone: Comment on above: Patient Position: Sitting; Cuff Location : Left Arm; Cuff Size: Standard 06-23-2020 07:11-0500 BMI (Body Mass Index) 22.83 kg/m2 Mayuri Hwang CMA [facility]; [facility] Work Phone: 06-23-2020 07:11-0500 Body Temperature 97.6 [degF] Mayuri Hwang CMA [facility]; [facility] Work Phone: 06-23-2020 07:11-0500 Body weight 64.64 kg Mayuri Hwang CMA [facility]; [facility] Work Phone: 06-23-2020 07:11-0500 BP Diastolic 76 mm[Hg] Mayuri Hwang CMA [facility]; [facility] Work Phone: Comment on above: Patient Position: Sitting; Cuff Location : Left Arm; Cuff Size: Standard 06-23-2020 07:11-0500 BP Systolic 110 mm[Hg] Mayuri Hwang CMA [facility]; [facility] Work Phone: Comment on above: Patient Position: Sitting; Cuff Location : Left Arm; Cuff Size: Standard 06-23-2020 07:11-0500 BSA (Body Surface Area) 1.74 m2 Mayuri Hwang FI[employer] MARKET[employer] MANAGER [facility]; [facility] Work Phone: 06-23-2020 07:11-0500 Height 168.28 cm Mayuri Hwang [facility]; [facility] Work Phone: 06-23-2020 07:11-0500 Pulse (Heart Rate) 81 /min Mayuri Hwang FI[employer] MARKETING MANAGER Comprehens [facility]; [facility] Work Phone: Comment on above: Pattern: Regular 06-23-2020 07:11-0500 Pulse Oximetry 98 % Gloria Sanju [facility]; [facility] Work Phone: Comment on above: Room air 06-23-2020 07:11-0500 SaO2% (BldA) [Mass fraction] 98 % Mayuri Hwang [facility]; [facility] Work Phone: Comment on above: Room air 12-17-2019 07:56-0400 BMI (Body Mass Index) 22.35 kg/m2 Mayuri Hwang [facility] Work Phone: 12-17-2019 07:56-0400 Body Temperature 97.2 [degF] Mayuri Hwang CMA [facility] Work Phone: Comment on above: Method: Temporal 12-17-2019 07:56-0400 Body weight 63.28 kg Mayuri Hwang [facility] Work Phone: 12-17-2019 07:56-0400 BP Diastolic 80 mm[Hg] Mayuri Hwang [facility] Work Phone: Comment on above: Patient Position: Sitting; Cuff Location : Left Arm; Cuff Size: Standard 12-17-2019 07:56-0400 BP Systolic 110 mm[Hg] Mayuri Hwang [facility] Work Phone: Comment on above: Patient Position: Sitting; Cuff Location : Left Arm; Cuff Size: Standard 12-17-2019 07:56-0400 BSA (Body Surface Area) 1.72 m2 Mayuri Hwang [facility] Work Phone: 12-17-2019 07:56-0400 Height 168.28 cm Mayuri Hwang [facility] Internal Medicine Work Phone: 12-17-2019 07:56-0400 Pulse (Heart Rate) 81 /min Mayuri Hwang FI[employer] MARKETING MANAGER Comprehens [facility] Medicine Work Phone: Comment on above: Pattern: Regular 12-17-2019 07:56-0400 Pulse Oximetry 98 % Gloria Sanju [facility] Internal Medicine Work Phone: Comment on above: Room air 12-17-2019 07:56-0400 Respiratory Rate 18 /min Mayuri Hwang FIELD MARKETING MANAGER Comprehensiv e [facility] Medicine Work Phone: Comment on above: Pattern: Unlabored 12-17-2019 07:56-0400 SaO2% (BldA) [Mass fraction] 98 % Mayuri Hwang [facility]; [facility] Work Phone: Comment on above: Room air 05-05-2019 08:07-0400 BMI (Body Mass Index) 20.74 kg/m2 Samantha Causey [facility] Internal Medicine Work Phone: 05-05-2019 08:07-0400 Body Temperature 98.1 [degF] Samantha Hodgeluisito [facility] Internal Medicine Work Phone: 05-05-2019 08:07-0400 Body weight 58.74 kg Samantha Slarb COLORIST [facility] Work Phone: 05-05-2019 08:07-0400 BP Diastolic 80 mm[Hg] Samantha Slarb COLORIST [facility] Work Phone: Comment on above: Patient Position: Sitting; Cuff Location : Left Arm; Cuff Size: Standard 05-05-2019 08:07-0400 BP Systolic 114 mm[Hg] Samantha Ayesharb COLORIST [facility] Work Phone: Comment on above: Patient Position: Sitting; Cuff Location : Left Arm; Cuff Size: Standard 05-05-2019 08:07-0400 BSA (Body Surface Area) 1.67 m2 Samnatha Slarb COLORIST [facility] Work Phone: 05-05-2019 08:07-0400 Height 168.28 cm Samantha Ayesharb COLORIST [facility] Work Phone: 05-05-2019 08:07-0400 Pulse (Heart Rate) 72 /min Samantha Marium COLORIST [facility] Work Phone: Comment on above: Pattern: Regular 05-05-2019 08:07-0400 Respiratory Rate 16 /min Samantha Ayesharb COLORIST [facility] Work Phone: Comment on above: Pattern: Unlabored 01-15-2019 07:28-0400 BMI (Body Mass Index) 26.33 kg/m2 Indira Valdes RN [facility] Work Phone: 01-15-2019 07:28-0400 Body weight 74.56 kg Indira Valdes RN [facility] Work Phone: 01-15-2019 07:28-0400 BP Diastolic 88 mm[Hg] Indira Valdes RN [facility] Work Phone: Comment on above: Patient Position: Sitting; Cuff Location : Left Arm; Cuff Size: Large 01-15-2019 07:28-0400 BP Systolic 128 mm[Hg] Indira Valdes RN [facility] Work Phone: Comment on above: Patient Position: Sitting; Cuff Location : Left Arm; Cuff Size: Large 01-15-2019 07:28-0400 BSA (Body Surface Area) 1.85 m2 Indira Valdes RN [facility] Work Phone: 01-15-2019 07:28-0400 Height 168.28 cm Indira Valdes RN [facility] Work Phone: 01-15-2019 07:28-0400 Pulse (Heart Rate) 75 /min Indira Valdes RN Comprehens [facility] Work Phone: Comment on above: Pattern: Regular 01-15-2019 07:28-0400 Pulse Oximetry 98 % Gloria Bills [facility] Work Phone: Comment on above: Room air 01-15-2019 07:28-0400 Respiratory Rate 18 /min Indira Valdes RN [facility] Work Phone: Comment on above: Pattern: Unlabored 01-15-2019 07:28-0400 SaO2% (BldA) [Mass fraction] 98 % Indira Valdes RN [facility]; [facility] Work Phone: Comment on above: Room air 05-29-2018 07:13-0500 BMI (Body Mass Index) 22.93 kg/m2 Indira Valdes RN [facility] Work Phone: 05-29-2018 07:13-0500 Body weight 64.92 kg Indira Valdes RN [facility] Work Phone: 05-29-2018 07:13-0500 BP Diastolic 78 mm[Hg] Indira Valdes RN [facility] Work Phone: Comment on above: Patient Position: Sitting; Cuff Location : Left Arm; Cuff Size: Large 05-29-2018 07:13-0500 BP Systolic 118 mm[Hg] Indira Valdes RN [facility] Work Phone: Comment on above: Patient Position: Sitting; Cuff Location : Left Arm; Cuff Size: Large 05-29-2018 07:13-0500 BSA (Body Surface Area) 1.74 m2 Indira Valdes RN [facility] Work Phone: 05-29-2018 07:13-0500 Height 168.28 cm Indira Valdes RN [facility] Work Phone: 05-29-2018 07:13-0500 Pulse (Heart Rate) 93 /min Indira Valdes RN Comprehens [facility] Work Phone: Comment on above: Pattern: Regular 05-29-2018 07:13-0500 Pulse Oximetry 98 % Gloria Bills [facility] Internal Medicine Work Phone: Comment on above: Room air 05-29-2018 07:13-0500 Respiratory Rate 18 /min Indira Valdes RN Comprehens[facility] Work Phone: Comment on above: Pattern: Unlabored 05-29-2018 07:13-0500 SaO2% (BldA) [Mass fraction] 98 % Indira Valdes RN [facility]; [facility] Work Phone: Comment on above: Room air 05-29-2018 07:13-0500 Weight 64.92 kg Gloria Bills [facility] Internal Medicine Work Phone: 12-19-2017 07:24-0400 BMI (Body Mass Index) 21.99 kg/m2 Noris Molina [facility] Internal Medicine Work Phone: 12-19-2017 07:24-0400 Body weight 62.26 kg Noris Molina [facility] Internal Medicine Work Phone: 12-19-2017 07:24-0400 BP Diastolic 78 mm[Hg] [facility] Work Phone: Comment on above: Patient Position: Sitting; Cuff Location : Left Arm; Cuff Size: Standard 12-19-2017 07:24-0400 BP Systolic 122 mm[Hg] Noris Molina [facility] Internal Medicine Work Phone: Comment on above: Patient Position: Sitting; Cuff Location : Left Arm; Cuff Size: Standard 12-19-2017 07:24-0400 BSA (Body Surface Area) 1.71 m2 Noris Molina [facility] Internal Medicine Work Phone: 12-19-2017 07:24-0400 Height 168.28 cm Noris [facility] Internal Medicine Work Phone: 12-19-2017 07:24-0400 Pulse (Heart Rate) 95 /min Noris Molina [facility] Internal Medicine Work Phone: Comment on above: Pattern: Regular 12-19-2017 07:24-0400 Pulse Oximetry 97 % Gloria Bills [facility] Work Phone: Comment on above: Room air 12-19-2017 07:24-0400 Respiratory Rate 18 /min Noris Jesse [facility] Internal Medicine Work Phone: Comment on above: Pattern: Unlabored 12-19-2017 07:24-0400 SaO2% (BldA) [Mass fraction] 97 % Noris Jesse [facility]; [facility] Work Phone: Comment on above: Room air 12-19-2017 07:24-0400 Weight 62.26 kg Gloria Bills [facility] Internal Medicine Work Phone: 06-03-2017 09:41-0500 BMI (Body Mass Index) 20.17 kg/m2 Salena Pak MD [facility] Work Phone: 06-03-2017 09:41-0500 BP Diastolic 67 mm[Hg] Salena Pak MD [facility] Work Phone: 06-03-2017 09:41-0500 BP Systolic 100 mm[Hg] Salena Pak MD [facility] Work Phone: 06-03-2017 09:41-0500 Height 167.64 cm Salena Pak MD [facility] Work Phone: 06-03-2017 09:41-0500 Pulse (Heart Rate) 59 /min Salena Pak MD [facility] Work Phone: 06-03-2017 09:41-0500 Respiratory Rate 18 /min Salena Pak MD [facility] Work Phone: 06-03-2017 09:41-0500 Weight 56.7 kg Salena Pak MD [facility] Work Phone: 05-09-2017 07:27-0400 BMI (Body Mass Index) 21.06 kg/m2 Indira Valdes RN [facility] Work Phone: 05-09-2017 07:27-0400 Body weight 59.65 kg Indira Valdes RN [facility] Work Phone: 05-09-2017 07:27-0400 BP Diastolic 62 mm[Hg] Indira Valdes RN [facility] Work Phone: Comment on above: Patient Position: Standing; Cuff Locatio n: Left Arm; Cuff Size: Standard 05-09-2017 07:27-0400 BP Systolic 122 mm[Hg] Indira Valdes RN [facility] Work Phone: Comment on above: Patient Position: Standing; Cuff Locatio n: Left Arm; Cuff Size: Standard 05-09-2017 07:27-0400 BSA (Body Surface Area) 1.68 m2 Indira Valdes RN [facility] Work Phone: 05-09-2017 07:27-0400 Height 168.28 cm Indira Valdes RN [facility] Work Phone: 05-09-2017 07:27-0400 Pulse (Heart Rate) 72 /min Indira Valdes RN [facility] Internal Medicine Work Phone: Comment on above: Pattern: Regular 05-09-2017 07:27-0400 Pulse Oximetry 97 % Gloria Bills [facility] Work Phone: Comment on above: Room air 05-09-2017 07:27-0400 Respiratory Rate 18 /min Indira Valdes RN Com[facility] Work Phone: Comment on above: Pattern: Unlabored 05-09-2017 07:27-0400 SaO2% (BldA) [Mass fraction] 97 % Indira Valdes RN [facility]; [facility] Work Phone: Comment on above: Room air 05-09-2017 07:27-0400 Weight 59.65 kg Gloria Bills [facility] Work Phone: 11-04-2016 14:55-0400 BMI (Body Mass Index) 21.04 kg/m2 Indira Valdes RN [facility] Work Phone: 11-04-2016 14:55-0400 Body weight 59.59 kg Indira Valdes RN [facility] Work Phone: 11-04-2016 14:55-0400 BP Diastolic 78 mm[Hg] Indira Valdes RN [facility] Work Phone: Comment on above: Patient Position: Sitting; Cuff Location : Left Arm; Cuff Size: Standard 11-04-2016 14:55-0400 BP Systolic 110 mm[Hg] Indira Valdes RN [facility] Work Phone: Comment on above: Patient Position: Sitting; Cuff Location : Left Arm; Cuff Size: Standard 11-04-2016 14:55-0400 BSA (Body Surface Area) 1.68 m2 Indira Valdes RN [facility] Work Phone: 11-04-2016 14:55-0400 Height 168.28 cm Indira Valdes RN [facility] Work Phone: 11-04-2016 14:55-0400 Pulse (Heart Rate) 78 /min Indira Valdes RN [facility] Work Phone: Comment on above: Pattern: Regular 11-04-2016 14:55-0400 Pulse Oximetry 97 % Gloria Bills [facility] Work Phone: Comment on above: Room air 11-04-2016 14:55-0400 Respiratory Rate 18 /min Indira Valdes RN [facility] Work Phone: Comment on above: Pattern: Unlabored 11-04-2016 14:55-0400 SaO2% (BldA) [Mass fraction] 97 % Indira Valdes RN [facility]; [facility] Work Phone: Comment on above: Room air 11-04-2016 14:55-0400 Weight 59.59 kg Gloria Bills [facility] Work Phone: 05-31-2016 07:30-0500 BMI (Body Mass Index) 23.56 kg/m2 Indira Valdes RN [facility] Work Phone: 05-31-2016 07:30-0500 Body weight 66.23 kg Indira Valdes RN [facility] Work Phone: 05-31-2016 07:30-0500 BP Diastolic 76 mm[Hg] Indira Valdes RN [facility] Work Phone: Comment on above: Patient Position: Sitting; Cuff Location : Left Arm; Cuff Size: Large 05-31-2016 07:30-0500 BP Systolic 112 mm[Hg] Indira Valdes RN [facility] Work Phone: Comment on above: Patient Position: Sitting; Cuff Location : Left Arm; Cuff Size: Large 05-31-2016 07:30-0500 BSA (Body Surface Area) 1.75 m2 Indira Valdes RN [facility] Work Phone: 05-31-2016 07:30-0500 Height 167.64 cm Indira Valdes RN [facility] Work Phone: 05-31-2016 07:30-0500 Pulse (Heart Rate) 73 /min Indira Valdes RN Com[facility] Work Phone: Comment on above: Pattern: Regular 05-31-2016 07:30-0500 Pulse Oximetry 98 % Gloria Bills [facility] Work Phone: Comment on above: Room air 05-31-2016 07:30-0500 Respiratory Rate 18 /min Indira Valdes RN [facility] Work Phone: Comment on above: Pattern: Unlabored 05-31-2016 07:30-0500 SaO2% (BldA) [Mass fraction] 98 % Indira Valdes RN [facility]; [facility] Work Phone: Comment on above: Room air 05-31-2016 07:30-0500 Weight 66.23 kg Gloria Bills [facility] Work Phone: 12-01-2015 07:10-0400 BMI (Body Mass Index) 27.78 kg/m2 Indira Valdes RN [facility] Work Phone: 12-01-2015 07:10-0400 Body weight 78.08 kg Indira Valdes RN [facility] Work Phone: 12-01-2015 07:10-0400 BP Diastolic 78 mm[Hg] Indira Valdes RN [facility] Work Phone: Comment on above: Patient Position: Sitting; Cuff Location : Left Arm; Cuff Size: Large 12-01-2015 07:10-0400 BP Systolic 122 mm[Hg] Indira Valdes RN [facility] Work Phone: Comment on above: Patient Position: Sitting; Cuff Location : Left Arm; Cuff Size: Large 12-01-2015 07:10-0400 BSA (Body Surface Area) 1.88 m2 Indira Valdes RN [facility] Work Phone: 12-01-2015 07:10-0400 Height 167.64 cm Indira Valdes RN [facility] Work Phone: 12-01-2015 07:10-0400 Pulse (Heart Rate) 79 /min Indira Valdes RN Com[facility] Work Phone: Comment on above: Pattern: Regular 12-01-2015 07:10-0400 Pulse Oximetry 97 % Gloria Bills [facility] Internal [facility] Work Phone: Comment on above: Room air 12-01-2015 07:10-0400 Respiratory Rate 18 /min Indira Valdes RN Com[facility] Work Phone: Comment on above: Pattern: Unlabored 12-01-2015 07:10-0400 SaO2% (BldA) [Mass fraction] 97 % Indira Valdes RN [facility]; [facility] Work Phone: Comment on above: Room air 12-01-2015 07:10-0400 Weight 78.08 kg Glorai Sanju [facility] Work Phone: 06-02-2015 07:06-0500 BMI (Body Mass Index) 27.34 kg/m2 Indira Valdes RN [facility] Work Phone: 06-02-2015 07:06-0500 Body weight 76.83 kg Indira Valdes RN [facility] Work Phone: 06-02-2015 07:06-0500 BP Diastolic 78 mm[Hg] Indira Valdes RN [facility] Work Phone: Comment on above: Patient Position: Sitting; Cuff Location : Left Arm; Cuff Size: Large 06-02-2015 07:06-0500 BP Systolic 120 mm[Hg] Indira Valdes RN [facility] Work Phone: Comment on above: Patient Position: Sitting; Cuff Location : Left Arm; Cuff Size: Large 06-02-2015 07:06-0500 BSA (Body Surface Area) 1.86 m2 Indira Valdes RN [facility] Work Phone: 06-02-2015 07:06-0500 Height 167.64 cm Indira Valdes RN [facility] Work Phone: 06-02-2015 07:06-0500 Pulse (Heart Rate) 76 /min Indira Valdes RN Com[facility] Work Phone: Comment on above: Pattern: Regular 06-02-2015 07:06-0500 Pulse Oximetry 98 % Gloriadion Bills [facility] Work Phone: Comment on above: Room air 06-02-2015 07:06-0500 Respiratory Rate 18 /min Indira Valdes RN Comprehensiv e Internal Medicine Work Phone: Comment on above: Pattern: Unlabored 06-02-2015 07:06-0500 SaO2% (BldA) [Mass fraction] 98 % Indira Valdes RN [facility]; [facility] Work Phone: Comment on above: Room air 06-02-2015 07:06-0500 Weight 76.83 kg Gloria Sanju [facility] Work Phone: 11-25-2014 07:04-0400 BMI (Body Mass Index) 27.82 kg/m2 Indira Valdes RN [facility] Work Phone: 11-25-2014 07:04-0400 Body weight 78.19 kg Indira Valdes RN [facility] Work Phone: 11-25-2014 07:04-0400 BP Diastolic 64 mm[Hg] Indira Valdes RN [facility] Work Phone: Comment on above: Patient Position: Sitting; Cuff Location : Left Arm; Cuff Size: Large 11-25-2014 07:04-0400 BP Systolic 118 mm[Hg] Indira Valdes RN [facility] Work Phone: Comment on above: Patient Position: Sitting; Cuff Location : Left Arm; Cuff Size: Large 11-25-2014 07:04-0400 BSA (Body Surface Area) 1.88 m2 Indira Valdes RN [facility] Work Phone: 11-25-2014 07:04-0400 Height 167.64 cm Indira Valdes RN [facility] Work Phone: 11-25-2014 07:04-0400 Pulse (Heart Rate) 70 /min Indira Valdes RN Comprehens [facility]ван [facility] Work Phone: Comment on above: Pattern: Regular 11-25-2014 07:04-0400 Pulse Oximetry 99 % Gloria Bills [facility] Work Phone: Comment on above: Room air 11-25-2014 07:04-0400 Respiratory Rate 18 /min Inidra Valdes RN Comprehens[facility] e [facility] Work Phone: Comment on above: Pattern: Unlabored 11-25-2014 07:04-0400 SaO2% (BldA) [Mass fraction] 99 % Indira Valdes RN [facility]; [facility] Work Phone: Comment on above: Room air 11-25-2014 07:04-0400 Weight 78.19 kg Gloria Wallon [facility] Work Phone: 10-06-2013 08:24-0400 BMI (Body Mass Index) 24.72 kg/m2 Indira Valdes RN [facility] Work Phone: 10-06-2013 08:24-0400 Body Temperature 97.9 [degF] Indira Valdes RN Com[facility] Work Phone: Comment on above: Method: Oral 10-06-2013 08:24-0400 Body weight 69.49 kg Indira Valdes RN [facility] Work Phone: 10-06-2013 08:24-0400 BP Diastolic 80 mm[Hg] Indira Valdes RN [facility] Work Phone: Comment on above: Patient Position: Sitting; Cuff Location : Left Arm; Cuff Size: Large 10-06-2013 08:24-0400 BP Systolic 122 mm[Hg] Indira Valdes RN [facility] Work Phone: Comment on above: Patient Position: Sitting; Cuff Location : Left Arm; Cuff Size: Large 10-06-2013 08:24-0400 BSA (Body Surface Area) 1.79 m2 Indira Valdes RN [facility] Work Phone: 10-06-2013 08:24-0400 Height 167.64 cm Indira Valdes RN [facility] Work Phone: 10-06-2013 08:24-0400 Pulse (Heart Rate) 83 /min Indira Valdes RN Comprehens [facility] Work Phone: Comment on above: Pattern: Regular 10-06-2013 08:24-0400 Pulse Oximetry 93 % Gloria Bills [facility] Internal Medicine Work Phone: Comment on above: Room air 10-06-2013 08:24-0400 Respiratory Rate 18 /min Indira Valdes RN Com[facility] Work Phone: Comment on above: Pattern: Unlabored 10-06-2013 08:24-0400 SaO2% (BldA) [Mass fraction] 93 % Indira Valdes RN [facility]; [facility] Work Phone: Comment on above: Room air 10-06-2013 08:24-0400 Weight 69.49 kg Gloria Bills [facility] Work Phone: 09-25-2012 10:01-0400 BMI (Body Mass Index) 25.92 kg/m2 Indira Valdes RN [facility] Work Phone: 09-25-2012 10:01-0400 Body Temperature 98.4 [degF] Indira Valdes RN Com[facility] Work Phone: Comment on above: Method: Oral 09-25-2012 10:01-0400 Body weight 72.83 kg Indira Valdes RN [facility] Work Phone: 09-25-2012 10:01-0400 BP Diastolic 82 mm[Hg] Indira Valdes RN [facility] Work Phone: Comment on above: Patient Position: Sitting; Cuff Location : Left Arm; Cuff Size: Large 09-25-2012 10:01-0400 BP Systolic 138 mm[Hg] Indira Valdes RN [facility] Work Phone: Comment on above: Patient Position: Sitting; Cuff Location : Left Arm; Cuff Size: Large 09-25-2012 10:01-0400 BSA (Body Surface Area) 1.82 m2 Indira Valdes RN [facility] Work Phone: 09-25-2012 10:0400 Height 167.64 cm Indira Valdes RN [facility] Work Phone: 09-25-2012 10:01-0400 Pulse (Heart Rate) 64 /min Indira Valdes RN Comprehens [facility] Work Phone: Comment on above: Pattern: Regular 09-25-2012 10:-0400 Respiratory Rate 18 /min Indira Valdes RN Com[facility] Work Phone: Comment on above: Pattern: Unlabored 09-25-2012 10:-0400 Weight 72.83 kg Gloria Blils [facility] Work Phone: 05-29-2012 14:41-0500 BMI (Body Mass Index) 25.02 kg/m2 Liliane Arrington RN [facility] Work Phone: 05-29-2012 14:41-0500 Body Temperature 98 [degF] Liliane Arrington RN [facility] Work Phone: Comment on above: Method: Oral 05-29-2012 14:41-0500 Body weight 70.31 kg Liliane Arrington RN [facility] Work Phone: 05-29-2012 14:41-0500 BP Diastolic 70 mm[Hg] Liliane Arrington RN [facility] Work Phone: Comment on above: Patient Position: Sitting; Cuff Location : Left Arm; Cuff Size: Standard 05-29-2012 14:41-0500 BP Systolic 122 mm[Hg] Liliane Arrington RN [facility] Work Phone: Comment on above: Patient Position: Sitting; Cuff Location : Left Arm; Cuff Size: Standard 05-29-2012 14:41-0500 BSA (Body Surface Area) 1.79 m2 Liliane Arrington RN [facility] Work Phone: 05-29-2012 14:41-0500 Height 167.64 cm Liliane Arrington RN [facility] Work Phone: 05-29-2012 14:41-0500 Pulse (Heart Rate) 100 /min Liliane Arrington RN [facility] Work Phone: Comment on above: Pattern: Regular 05-29-2012 14:41-0500 Pulse Oximetry 96 % Gloria Sanju [facility] Work Phone: Comment on above: Room air 05-29-2012 14:41-0500 Respiratory Rate 16 /min Liliane Arrington RN [facility] Work Phone: Comment on above: Pattern: Unlabored 05-29-2012 14:41-0500 SaO2% (BldA) [Mass fraction] 96 % Liliane Arrington RN [facility]; [facility] Work Phone: Comment on above: Room air 05-29-2012 14:41-0500 Weight 70.31 kg Glorialali Wallon [facility] Internal Medicine Work Phone: 05-22-2012 09:00-0500 BMI (Body Mass Index) 25.02 kg/m2 Janie Chappell [facility] Internal Medicine Work Phone: 05-22-2012 09:00-0500 Body Temperature 98.5 [degF] Janie Chappell [facility] Internal Medicine Work Phone: 05-22-2012 09:00-0500 Body weight 70.31 kg Janie Chappell [facility] Internal Medicine Work Phone: 05-22-2012 09:00-0500 BP Diastolic 94 mm[Hg] Janie Chappell [facility] Internal Medicine Work Phone: Comment on above: Patient Position: Sitting; Cuff Location : Left Arm; Cuff Size: Standard 05-22-2012 09:00-0500 BP Systolic 142 mm[Hg] Janie Chappell [facility] Internal Medicine Work Phone: Comment on above: Patient Position: Sitting; Cuff Location : Left Arm; Cuff Size: Standard 05-22-2012 09:00-0500 BSA (Body Surface Area) 1.79 m2 Janie Chappell [facility] Internal Medicine Work Phone: 05-22-2012 09:00-0500 Height 167.64 cm Janie Chappell [facility] Work Phone: 05-22-2012 09:00-0500 Pulse (Heart Rate) 84 /min Janie Chappell [facility] Work Phone: Comment on above: Pattern: Regular 05-22-2012 09:00-0500 Respiratory Rate 16 /min Janie Chappell [facility] Work Phone: Comment on above: Pattern: Unlabored 05-22-2012 09:00-0500 Weight 70.31 kg Gloria Bills [facility] Work Phone: Encounters Encounter Date Encounter Type Care Provider Facility Start: 10-08-2024 End: 10-08-[address] Gloria Bills DO Work Phone: [facility] Work Phone: Start: 10-08-2024 End: 10-08-[address] Juan José Weiner MD -Laboratory, [place] Work Phone: Start: 10-08-2024 End: 10-08-2024 ambulatory Juan José Weiner Facility:[facility] Start: 09-21-2024 End: 09-21-[address] Gloria Bills DO Work Phone: [facility] Work Phone: Start: 09-21-2024 End: 09-21-2024 Patient encounter procedure Ngozi Ortega ACADEMIC SUPPORT SPECIALIST-C -Outpatient Breast Imaging Work Phone: Start: 09-21-2024 End: 09-21-2024 ambulatory Ngozi Ortega Facility:[facility] Start: 09-08-2024 End: 09-08-2024 Patient encounter procedure Ngozi Ortega ACADEMIC SUPPORT SPECIALIST-C -[facility] Work Phone: Start: 09-08-2024 End: 09-08-2024 Patient encounter status Ngozi Ortega ACADEMIC SUPPORT SPECIALIST-C [facility] Start: 09-08-2024 End: 09-08-2024 ambulatory Gloria Bills Facility:[facility] Start: 07-15-2024 End: 07-19-[address] JUAN JOSÉ WEINER MD Facility:CHIRAG Sheppard [facility] Start: 07-15-2024 End: 07-19-[address] JUAN JOSÉ WEINER MD [facility] Start: 06-27-2024 End: 06-27-2024 Patient encounter procedure [place] Mishra Jose Raul ACADEMIC SUPPORT SPECIALIST-C -[facility] Work Phone: Start: 06-27-2024 End: 06-27-2024 ambulatory Gloria Sanju [place] [place]: 02-12-2024 ambulatory Gloria Sanju Facilit y:[facility] Start: 01-31-2024 End: 02-11-2024 ambulatory Juan José isamar Facility:[facility] Start: 01-23-2024 End: 01-23-2024 ambulatory Gloria Sanju Facility:[facility] Start: 12-05-2023 ambulatory Gloria Sanju [place] [place] Start: 12-05-2023 End: 12-05-2023 ambulatory Glorialali Wallon Facility:[facility] Start: 11-13-2023 End: 12-12-2023 [facility] Start: 09-19-2023 End: 09-19-[address] Gloria Bills Work Phone: [facility] Work Phone: Start: 09-19-2023 End: 09-19-[address] Gloria Bills Work Phone: [facility]-Outpatient Breast Imaging Work Phone: Start: 09-02-2023 End: 09-02-[address] Gloria Bills Work Phone: [facility] Work Phone: Start: 08-15-2023 End: 08-15-[address] Gloria Bills Work Phone: [facility] Work Phone: Start: 06-19-2023 End: 06-19-2023 ambulatory [facility] Work Phone: Start: 06-19-2023 End: 06-19-2023 Patient encounter procedure [facility] Work Phone: Start: 06-18-2023 End: 06-18-2023 ambulatory [facility] Work Phone: Start: 06-18-2023 End: 06-18-2023 Patient encounter procedure [facility] Work Phone: Start: 06-06-2023 End: 06-06-2023 ambulatory [facility] Work Phone: Start: 06-06-2023 End: 06-06-2023 Patient encounter procedure [facility] Work Phone: Start: 05-08-2023 End: 05-13-[address] JUAN JOSÉ WEINER MD Facility:[facility] Start: 05-08-2023 End: 05-12-[address] JUAN JOSÉ WEINER MD [facility] Start: 04-24-2023 Review Gloria colón DO Work Phone: [facility] Start: 04-24-2023 End: 04-24-2023 Office outpatient visit 25 minutes Gloria Bills DO Work Phone: [facility] Start: 04-23-2023 End: 04-23-2023 ambulatory [facility] Work Phone: Start: 04-23-2023 End: 04-23-2023 Patient encounter procedure [facility] Work Phone: Start: 03-04-2023 Review Gloria colón DO Work Phone: [facility] Start: 03-04-2023 End: 03-13-2023 Office outpatient visit 15 minutes Gloria Sanju DO Work Phone: [facility] Start: 12-25-2022 End: 12-25-2022 ambulatory [facility] Work Phone: Start: 12-25-2022 End: 12-25-2022 Patient encounter procedure [facility]-Outpatient Bone Densitometry Start: 11-26-2022 End: 11-26-2022 Patient encounter procedure Samantha Marium CRUZ [facility]; [facility] Work Phone: Start: 11-26-2022 End: 11-26-2022 Office outpatient visit 15 minutes Gloria Sanju DO Work Phone: [facility] Start: 10-25-2022 ambulatory Gloria Sanju DO Comp [facility] Start: 10-25-2022 End: 10-25-2022 Office outpatient visit 15 minutes Gloria Sanju DO Work Phone: [facility] Start: 10-25-2022 Review Gloira Fearo n DO Work Phone: [facility] Start: 07-22-2022 End: 07-22-2022 Phone Encounter Gloria Sanju DO Work Phone: [facility] Start: 07-01-2022 End: 07-01-2022 ambulatory [facility] Work Phone: Start: 07-01-2022 End: 07-01-2022 Patient encounter procedure [facility]-Laboratory, Specimen Start: 05-17-2022 End: 05-17-2022 ambulatory [facility] Work Phone: Start: 05-17-2022 End: 05-17-2022 Patient encounter procedure [facility]-Outpatient Breast Imaging Start: 04-22-2022 End: 04-22-2022 Patient encounter procedure [facility]-Laboratory, Specimen Start: 01-17-2022 End: 01-17-2022 Office outpatient visit 25 minutes Gloria Sanju DO Work Phone: [facility] Start: 01-17-2022 Review Gloria Fearo n DO Work Phone: [facility] Start: 07-26-2021 End: 07-26-2021 Office outpatient visit 15 minutes Gloria Sanju DO Work Phone: [facility] Start: 07-26-2021 Review Gloria Fearo n DO Work Phone: [facility] Start: 01-19-2021 End: 01-19-2021 Office outpatient visit 25 minutes Gloria Sanju DO Work Phone: [facility] Start: 01-19-2021 Review Gloria Fearo n DO Work Phone: [facility] Start: 06-23-2020 End: 06-23-2020 Office outpatient visit 15 minutes Gloria Bills [facility] Start: 05-04-2020 End: 05-04-2020 Patient encounter procedure [facility] Start: 12-17-2019 End: 12-17-2019 Office outpatient visit 25 minutes Gloria Bills [facility] Start: 05-05-2019 End: 05-05-2019 Office outpatient visit 15 minutes Gloria Wallon [facility] Start: 01-15-2019 End: 01-15-2019 Patient encounter procedure Gloria Sanju DO Work Phone: [facility] Start: 01-15-2019 End: 01-15-2019 Periodic preventive med est patient 40-64yrs Gloria Sanju [facility] Start: 12-10-2018 End: 12-10-2018 Phone Encounter Gloria Wallon [facility] Start: 05-29-2018 End: 05-29-2018 Office outpatient visit 15 minutes Gloria Sanju [facility] Start: 12-19-2017 End: 12-19-2017 Periodic preventive med est patient 40-64yrs Gloria Sanju [facility] Start: 12-19-2017 End: 12-19-2017 Physical examination Noris Brambila [facility]; [facility] Work Phone: Start: 12-12-2017 End: 12-12-2017 Phone Encounter Gloria Sanju [facility] Start: 05-09-2017 End: 05-09-2017 Office outpatient visit 15 minutes Gloria Bills [facility] Start: 11-04-2016 End: 11-04-2016 Periodic preventive med est patient 65yrs& older Gloria Bills [facility] Start: 11-04-2016 End: 11-04-2016 Physical examination Gloria Bills DO Work Phone: [facility] Start: 10-21-2016 End: 10-21-2016 Lab Order Gloria Bills [facility] Start: 05-31-2016 End: 05-31-2016 Patient encounter Gloria Bills [facility] Start: 05-31-2016 End: 05-31-2016 Office outpatient visit 15 minutes Gloria Bills [facility] Start: 12-01-2015 End: 12-01-2015 Office outpatient visit 25 minutes Gloria Bills [facility] Start: 06-02-2015 End: 06-02-2015 Office outpatient visit 25 minutes Gloria Bills [facility] Start: 11-25-2014 End: 11-25-2014 Office outpatient visit 25 minutes Gloria Bills [facility] Start: 10-06-2013 End: 10-06-2013 Patient encounter Gloria Bills [facility] Start: 10-14-2012 End: 10-14-2012 Phone Encounter Gloria Bills [facility] Start: 09-29-2012 End: 09-29-2012 Lab Order Gloria Bills [facility] Start: 09-25-2012 End: 09-25-2012 Patient encounter Gloria Bills [facility] Start: 05-29-2012 End: 05-29-2012 Patient encounter Gloria Bills [facility] Start: 05-25-2012 End: 05-25-2012 Phone Encounter Golria Bills [facility] Start: 05-22-2012 End: 05-22-2012 Patient encounter Gloria Bills [facility] Patient encounter procedure Mayuri Hwang CMA [facility]; [facility] Work Phone: Patient encounter procedure Gisela Hope [facility]; [facility] Work Phone: Patient encounter procedure Kady Garsia [facility]; [facility] Work Phone: Patient encounter procedure Crystal Siddiqiford [facility]; [facility] Work Phone: Patient encounter procedure Crystal Siddiqiford [facility]; [facility] Work Phone: Patient encounter procedure Candaec Deshawn SAUCEDO [facility]; [facility] Work Phone: Patient encounter procedure ANDREA Machado LPN [facility]; [facility] Work Phone: Physical examination Mayuri Kimballsal [facility] C omprehensive Internal Medicine; [facility] Work Phone: Physical examination Gisela Hope COLORIST Com prehensive Internal Medicine; [facility] Work Phone: Physical examination Kady Garsia COLORIST Co [facility]; [facility] Work Phone: Physical examination Cortestyrell Marley [facility] C omprehensive Internal Medicine; [facility] Work Phone: Physical examination Crystal Marley [facility] C omprehensive Internal Medicine; [facility] Work Phone: Physical examination Samantha Hodgeluisito COLORIST Com prehensive Internal Medicine; [facility] Work Phone: End: 04-24-2023 Physical examination ANDREA Machado LPN [facility]; [facility] Work Phone: Procedures Date Procedure Procedure Detail Performing Clinician Start: 09-21-[address] Gloria Bills DO Work Phone: Start: 09-19-[address] Gloria Bills Work Phone: Start: 06-19-2023 Clostridium difficile detection Start: 12-25-2022 End: 12-26-2022 Dexa Bone Density Study Procedure Note: See Note; NOTES: [facility] Imaging Services [address] [place] [address] Dexa Bone Density Study MR#: [id number] Acct: [id number] Name: VIRGINIA VILLAGRAN Rep #: [id number] : 1970 F 52 From: Oliver mirza MD PCP: Dr. Gloria Bills DO Status: REG CLI Study: Dexa Bone Density Study Date of Exam: 12/25/22 Exam# [id number] Ordering Dr: Gloria Bills DO STUDY: DUAL ENERGY X-RAY ABSORPTIOMETRY / DXA REASON FOR EXAM: Female, 52 years old. [id number] TECHNIQUE: Bone Mineral Density (BMD) measurements of lumbar spine and bilateral hips were obtained. COMPARISON: None. FINDINGS: Lumbar Spine (L1-L4): g/cm2 (0.969) / T-score (-0.7) / Z-score (0.3) Findings are suggestive of normal bone density with a low fracture risk. Left Femur Total: g/cm2 (0.886) / T-score (-0.5) / Z-score (0.2) Left Femoral Neck: g/cm2 (0.801) / T-score (-0.4) / Z-score (0.6) Right Femur Total: g/cm2 (0.868) / T-score (-0.6) / Z-score (0.0) Right Femoral Neck: g/cm2 (0.786) / T-score (-0.6) / Z-score (0.0) BD/Dexa Bone Density Study IMPRESSION: The patient is considered normal as outlined below according to World Ricci Organization (WHO) criteria with a low fracture risk. Reference Information: The T-score is the number of standard deviations above or below the standard which is normal for young adults at their peak bone mineral density. The World Health Organization (WHO) interprets the T-scores as follows: Above -1 Normal bone density Between -1 and -2.5 Osteopenia Equal to / or below -2.5 Osteoporosis As a practical clinical guideline, osteopenia may be graded as follows: Mild -1 through -1.5 Moderate -1.6 through -2.0 Severe -2.1 through -2.4 The Z-score is the number of standard deviations above or below age-matched controls. A Z-score of less than -1.5 would be considered abnormal. References: 1. NIH Osteoporosis and Related Bone Diseases www osteo.org 2. International Society for Clinical Densitometry www iscd.org 3. National Osteoporosis Foundation www nof.org Electronically Signed: Oliver Shine MD at 9:45 EDT , CC: Dr. Gloria Bills DO Food Mixer Assembler: Signed Gloria Bills DO Work Phone: Start: 12-25-2022 Dual energy X-ray absorptiometry Start: 11-26-2022 End: 11-26-2022 Venous Duplex US, Unilateral Procedure Note: See Note; NOTES: [facility] [address] [place] [address] Venous Duplex US, Unilateral 11/26/22 0857 MR#: [id number] Acct: [id number] Name: VIRGINIA VILLAGRAN Rep #: [id number] : [id number] From: Ric Kwon MD Attending Dr: COLBY Oakley Status: REG CLI Ordering Dr: Aidee Chappell NP-C Date: 11/26/22 Location: [facility] Sex: F C Admitted: Reason For Study: Pain in right lower leg RIGHT LEFT GSV is normal. CFV is compressible, spontaneous, phasic, CFV is compressible, spontaneous, phasic, competent, and demonstrates normal competent and demonstrates normal augmentation. augmentation. FV is compressible, spontaneous, phasic, competent and demonstrates normal augmentation. POP V is compressible, spontaneous, phasic, competent and demonstrates normal augmentation. T/P Trunk is compressible. PTV is compressible. RT PerV is compressible. Procedure This is a venous duplex using B-mode, color flow and spectral Doppler. Exam performed in department. The exam was diagnostic. A preliminary report was called and/or faxed to Aidee Chappell NP. VL/Venous Duplex US, Unilateral Interpretation Summary Deep veins of the right lower extremity are patent and compressible segmentally. There is no evidence of right lower extremity deep vein thrombosis. Valvular competence appears intact within the proximal deep venous system on the right . The right great saphenous vein appears patent and compressible segmentally. The left common femoral vein is patent and compressible . Ordering Physician: Aidee Chappell Referring Physician: Gloria Bills M.D. Performed By: Raúl Kessler, Radu 11/26/221701 Date Ric Kwon MD CC: Aidee Chappell NP; ACADEMIC SUPPORT SPECIALIST-C Aidee Chappell; Dr. Gloria Bills DO Date Dictated: 11/26/22 0857 Date Transcribed: 11/26/221701 Food Mixer Assembler: Signed Aidee Chappell [facility] Work Phone: Start: 05-17-2022 Screening mammography Start: 05-17-2022 End: 05-17-2022 SCRN MAMM (CAD)W/EUGENIO BILAT Procedure Note: See Note; NOTES: [facility] Imaging Services [address] [place] [address] SCRN MAMM (CAD)W/EUGENIO BILAT MR#: [id number] Acct: [id number] Name: VIRGINIA VILLAGRAN Rep #: [id number] : 1970 F 51 From: Oliver mirza MD PCP: Dr. Gloria Bills, DO Status: REG CLI Study: SCRN MAMM (CAD)W/EUGENIO BILAT Date of Exam: 11/02 Exam# [id number] Ordering Dr: Marilyn Foy DO MAMMOGRAPHY - BILATERAL SCREENING REASON FOR EXAM: Female, 51 years old. Routine annual screening examination. PERTINENT HISTORY: Non-contributory. History of prior dilated ducts. TECHNIQUE: Digital bilateral breast eugenio (3D mammographic acquisition) in the CC and MLO projections. 2-D mediolateral oblique (MLO) and craniocaudad (CC) views of both breasts were obtained. CAD: Full Field Digital Mammography with Computer Added Detection was performed. COMPARISON: Comparison is made with prior study dated 05/25/2020 and 01/23/2021. FINDINGS: Breast Composition: The breasts are extremely dense, which lowers the sensitivity of mammography. There are no dominant masses or suspicious calcifications. Stable small benign-appearing bilateral axillary lymph nodes. No other significant abnormalities are identified. There has been no significant change since the prior study. BI/SCRN MAMM (CAD)W/EUGENIO BILAT IMPRESSION: Stable bilateral screening mammogram. Yearly follow-up mammogram recommended. (A) ASSESSMENT CATEGORY: BIRADS Category 2: Benign. A letter regarding these results will be sent to the patient by the facility within 30 days. Approximately 10% of breast cancers are not detected by mammography. A normal mammogram should not delay biopsy of a clinically suspicious abnormality. [id number] Electronically Signed: Oliver Shine MD at 8:58 EDT , CC: Dr. Marilyn Foy DO; Dr. Gloria Bills DO Food Mixer Assembler: Signed Gloria Bills DO Work Phone: Start: 04-29-2021 End: 05-09-2021 Emergency Department Summary Comments: See Note; NOTES: [facility] Medical Records Department [address] [place] [address] Emergency Department Summary 04/29/21 MR#: [id number] Acct: [id number] Name: VIRGINIA VILLAGRAN Rep #: [id number] : 1970 50 From: Shiva Grier DO PCP: Dr. Gloria Bills DO Status:DEP ER Location: ED HPI History of Present Illness Chief Complaint: Lower Extremity Injury Detail of Chief Complaint: Injury to left ankle that occurred last evening Informant: patient Narrative Narrative: Patient states that she injured her ankle last evening. Patient states that she unknowingly was standing on her dog's leash and threw the ball. The dog took off after the ball and patient fell and twisted her ankle. Patient is able to bear some weight but quite painful. She denies any other injuries. [facility] Medical History (Updated 04/29/21 @ 14:[address] Shiva Grier DO) High cholesterol Home Medications atorvastatin 20 mg PO QHS 02/21/15 [History Last Taken Unknown] balsalazide 6.75 g PO BID 02/21/15 [History Last Taken Unknown] calcium citrate-vitamin D3 1 ea PO DAILY 02/21/15 [History Last Taken Unknown] cholecalciferol (vitamin D3) 0 unit PO DAILY 02/21/15 [History Last Taken Unknown] multivitamin with folic acid [Thera] 1 tab PO DAILY 02/21/15 [History Last Taken Unknown] omega-3 fatty acids [Fish Oil] 300 mg PO DAILY 02/21/15 [History Last Taken Unknown] valsartan-hydrochlorothi azide [Diovan Hct 160-25 MG Tablet] 1 tab PO DAILY 02/21/15 [History Last Taken Unknown] Ibuprofen [Motrin] 800 mg PO TID PRN PRN #30 tab 02/28/15 [Rx Last Taken Unknown] oxycodone-acetaminophen 1 - 2 tab PO Q4H PRN PRN #20 tab 02/28/15 [Rx Last Taken Unknown] hydrocodone-acetaminophe n 1 tab PO Q4H PRN PRN 2 Days #10 tablet 04/29/21 [Rx Last Taken Unknown] Allergy/AdvReac Type Severity Reaction Status Date / Time No Known Allergies Allergy Verified 04/29/21 13:53 Social History Smoking Status: Never smoker ROS ROS ED Constitutional Constitutional ED: Reports systems reviewed and no addt'l complaints, except as documented; Denies body ache(s), change in weight or chills Eyes Eyes: Denies acute decrease in peripheral vision, change in vision, double vision or loss of vision ENT ENT ED: Reports none; Denies ear pain, lip swelling, loss taste/smell, neck pain, otalgia or sore throat Cardiovascular Cardiovascular: Reports none; Denies abdominal pain, chest pain with activity, leg edema, lightheadedness, palpitations, rapid heart rate or syncope Respiratory/Chest Respiratory/Chest: Reports none; Denies change in mental status, dry cough, dyspnea, hemoptysis, shortness of breath at rest or shortness of breath with exertion Gastrointestinal Gastrointestinal: Reports none; Denies abdominal pain, change in stool character, diarrhea, hematemesis, hematochezia, melena, rectal bleeding or vomiting Genitourinary Genitourinary ED: Reports none; Denies abdominal discomfort, anuria, dysuria, genital pain or polyuria Musculoskeletal Musculoskeletal: Reports none and other Details: Right ankle injury ; Denies arthralgias, back pain, difficulty walking, extremity pain, muscle weakness or myalgias Integumentary Reports none; Denies abscess or rash Neurologic Neurologic: Reports none; Denies abnormal gait, confusion, focal weakness, frequent falls, headache(s), loss of vision, numbness, paresthesias, radicular pain, vertigo or weakness Psychiatric Psychiatric: Reports systems reviewed and no addt'l complaints, except as documented and none; Denies behavioral changes, confusion, difficulty concentrating, hallucinations, suicidal ideation, tactile hallucinations or visual hallucinations Endocrine Endocrinology: Denies none, cold intolerance, excessive sweating, fatigue or heat intolerance Hematologic/Lymphatic Hematologic/Lymphatic: Reports none; Denies anemia, easy bleeding or easy bruising Allergic/Immunologic Allergic/Immunologic ED: Denies as per HPI, none, lip swelling, mouth swelling, throat swelling, tongue swelling or hives EXAM Physical Exam Const Vital Signs: 04/29/21 13:51 Temperature 98.0 F Temperature Source Temporal Pulse Rate 88 Respiratory Rate 18 Blood Pressure 139/77 H Blood Pressure Mean 97 Pulse Ox 97 Oxygen Delivery Method Room Air Positive well nourished and well developed General Appearance ED: well developed and NAD HEENT Reports TM's clear and moist mucous membranes normocephalic and atraumatic; Negative for trauma or tenderness Tympanic Membrane ED: Yes TM's clear Eyes PERRL and EOMs intact bilaterally General Eye ED: Negative for pale conjunctiva or scleral icterus Neck no lymphadenopathy, supple and no JVD General: Negative for tenderness Chest Wall inspection of chest normal and palpation of chest normal Chest: Negative for tenderness Resp normal respiratory effort and clear to auscultation bilaterally Effort and Inspection: Negative for respiratory distress or pain with movement Auscultation: Negative for rhonchi, wheezes or diminished lung sounds Cardio regular rate, regular rhythm, S1 normal heart sound, S2 normal heart sound and no murmurs Peripheral Pulses: pulses 2+ throughout GI normal to inspection, nondistended, normoactive bowel sounds, soft to palpation, non-tender, non- distended and no masses Back/Spine no CVA tenderness and no thoracic nor lumbar tenderness Extremity Extremity Narrative: Patient has soft tissue swelling over the lateral malleolus with tenderness palpation over the lateral malleolus. She has ecchymosis and bruising noted. No pain at the pro ximal fibular head. And no pain at the base of the fifth meta tarsal. Patient neurovascularly intact. General Extremety ED: Negative for edema General Extremity: Negative for edema Neuro oriented x3, CN's II-XII intact bilaterally, no sensory deficits noted and gait normal Sensorium / Orientation: awake, alert, oriented to person, oriented to place and oriented to time Motor Exam: strength 5/5 throughout and strength abnormal Psych mental status grossly normal Skin no rashes or lesions noted and no wounds MDM MDM MDM Narrative Medical decision making narrative: Patient was placed in a posterior splint. She will be given referral to orthopedics for follow-up. Patient advised to ice and elevate the extremity. Patient given a prescription for Villanova for pain. Radiography Diagnostic Testing: Three-view x-rays of the left ankle obtained show a fracture of the distal fibula of the [place] B type. Official radiology report pending. Discharge Plan Triage Chief Complaint: Lower Extremity Injury ED Provider: Shiva Grier Dx/Rx/DC Orders Clinical Impression: Closed fracture of distal end of left fibula Instructions: ED Ankle Fracture, Distal Fibula Prescriptions: New hydrocodone-acetaminophe n [hydrocodone-acetaminoph en] 1 TABLET tablet 1 tab PO Q4H PRN PRN (Reason: Pain) 2 Days Qty: 10 RF: 0 No Action atorvastatin 20 MG tablet 20 mg PO QHS RF: 0 balsalazide 750 MG capsule 6.75 g PO BID RF: 0 cholecalciferol (vitamin D3) 5,000 UNIT capsule 0 unit PO DAILY RF: 0 valsartan-hydrochlorothi azide [Diovan HCT] 1 TABLET tablet 1 tab PO DAILY RF: 0 calcium citrate-vitamin D3 1 EACH tablet 1 ea PO DAILY RF: 0 omega-3 fatty acids [Fish Oil] 300 MG capsule 300 mg PO DAILY RF: 0 multivitamin with folic acid [Thera] 1 TABLET tablet 1 tab PO DAILY RF: 0 oxycodone-acetaminophen 1 TABLET tablet 1 - 2 tab PO Q4H PRN PRN (Reason: Abdominal Pain) Qty: 20 RF: 0 Ibuprofen [Motrin] 800 MG tablet 800 mg PO TID PRN PRN (Reason: Abdominal Pain) Qty: 30 RF: 1 Primary Care Provider: Gloria Bills Referrals: Gloria Bills DO [Primary Care Provider] - Ivan Daislva MD [STAFF PHYSICIAN] - 3-5 Days Disposition Disposition: Home, Self Care What to do if you have Problems For any increased pain, shortness of breath, bleeding, nausea or vomiting, chest pain, or any unexpected problems, contact your Primary Care Provider. Call [facility] ([phone]) or report to the closest Emergency Room. Call 911 if necessary. 04/29/21 1517 <Electronically signed by Shiva Grier DO> Cosigner Signature (if applicable): CC: Dr. Gloria Bills DO Signed Gloria Bills DO Work Phone: Start: 04-29-2021 End: 05-04-2021 Ankle min 3 Views Comments: See Note; NOTES: [facility] Imaging Services [address] [place] [address] Ankle min 3 Views MR#: [id number] Acct: [id number] Name: VIRGINIA VILLAGRAN #: [id number] : 1970 F 50 From: Keith Nguyen DO PCP: Dr. Gloria Bills DO Status: DEP ER Study: Ankle min 3 Views Date of Exam: 04/29/21 Exam# [id number] Ordering Dr: Shiva Grier DO STUDY: X-RAY - LEFT ANKLE REASON FOR EXAM: Female, 50 years old. Injury TECHNIQUE: 3 view(s) of the ankle. COMPARISON: None. FINDINGS: Normal visualized distal tibia and fibula. Normal medial malleolus. Fracture of the lateral malleolus. Normal tibiotalar articulation and ankle mortise. Normal visualized talus and calcaneus. The visualized subtalar, talonavicular, calcaneocuboid and tarsal articulations are normal. Lateral soft tissue edema. RAD/Ankle min 3 Views IMPRESSION: Lateral malleolus fracture. Electronically Signed: Keith Nguyen DO at 16:29 EDT Tel [phone], Service support , CC: Dr. Gloria Bills DO; Dr. Shiva Grier DO Food Mixer Assembler: Signed Gloria Bills DO Work Phone: Start: 01-23-2021 End: 01-23-2021 Breast Limited Unilateral Comments: See Note; NOTES: [facility] Imaging Services [address] [place] [address] Breast Limited Unilateral MR#: [id number] Acct: [id number] Name: VIRGINIA VILLAGRAN Rep #: [id number] : 1970 F 50 From: Oliver mirza MD PCP: Dr. Gloria Bills DO Status: REG CLI Study: Breast Limited Unilateral Date of Exam: Exam# [id number] Ordering Dr: Gloria Bills DO STUDY: ULTRASOUND BREAST - LEFT REASON FOR EXAM: Female, 50 years old. Palpable lump left breast. TECHNIQUE: Axial and longitudinal images of the LEFT breast were performed with a high resolution ultrasound transducer. # OF IMAGES: 14 COMPARISON: Comparison is made with prior mammogram done earlier in the day. FINDINGS: LEFT Breast: The apical area was examined by ultrasound. No solid or cystic mass is seen. Mildly dilated retroareolar ducts. US/Breast Limited Unilateral IMPRESSION: Mildly dilated retroareolar ducts. No sonographic mass is seen. ASSESSMENT CATEGORY: BIRADS Category 2: Benign. A letter regarding these results will be sent to the patient by the facility within 30 days. Electronically Signed: Oliver Shine MD at 15:41 EDT , Service support , CC: Dr. Gloria Bills DO Food Mixer Assembler: Signed Gloria Bills DO Work Phone: Start: 01-23-2021 End: 01-23-2021 DIAG MAMM W/CAD, UNILAT Comments: See Note; NOTES: [facility] Imaging Services [address] [place] [address] DIAG MAMM W/CAD, UNILAT MR#: [id number] Acct: [id number] Name: VIRGINIA VILLAGRAN Rep #: [id number] : 1970 F 50 From: Oliver mirza MD PCP: Dr. Gloria Bills DO Status: REG CLI Study: DIAG MAMM W/CAD, UNILAT Date of Exam: 01/23/21 Exam# [id number] Ordering Dr: Gloria Bills DO MAMMOGRAPHY - UNILATERAL DIAGNOSTIC: LEFT BREAST REASON FOR EXAM: Female, 50 years old. One-month history of left breast lump. PERTINENT HISTORY: Non-contributory. TECHNIQUE: Digital unilateral breast eugenio (3D mammographic acquisition) in the CC and MLO projections. 2-D mediolateral oblique (MLO) and craniocaudad (CC) views of both breasts were obtained. CAD: Full Field Digital Mammography with Computer Added Detection was performed. COMPARISON: Comparison is made with prior study dated 05/25/2020 and 09/04/2018. FINDINGS: Breast Composition: The breasts are heterogeneously dense, which may obscure small masses. There are no dominant masses or suspicious calcifications. No other significant abnormalities are identified. There has been no significant change since the prior study. BI/DIAG MAMM W/CAD, UNILAT IMPRESSION: Stable unilateral diagnostic mammogram. With the patient''s history of a palpable lump in the left breast, correlation with ultrasound is recommended. ASSESSMENT CATEGORY: BIRADS Category 0: Incomplete. Need additional imaging evaluation. A letter regarding these results will be sent to the patient by the facility within 30 days. Approximately 10% of breast cancers are not detected by mammography. A normal mammogram should not delay biopsy of a clinically suspicious abnormality. Electronically Signed: Oliver Shine MD at 9:58 EDT , Service support , CC: Dr. Gloria Bills DO Food Mixer Assembler: Signed Gloria Bills DO Work Phone: Start: 05-25-2020 End: 05-25-2020 SCREEN MAMM (CAD) W/EUGENIO BILAT Comments: See Note; NOTES: [facility] Imaging Services [address] [place] [address] SCREEN MAMM (CAD) W/EUGENIO BILAT MR#: [id number] Acct: [id number] Name: VIRGINIA VILLAGRAN Rep #: [id number] : 1970 F 49 From: Oliver mirza MD PCP: Dr. Gloria Bills, DO Status: REG CLI Study: SCREEN MAMM (CAD) W/EUGENIO BILAT Date of Exam: 07/25/19 Exam# [id number] Ordering Dr: Marilyn Foy DO MAMMOGRAPHY - BILATERAL SCREENING REASON FOR EXAM: Female, 49 years old. Routine annual screening examination. PERTINENT HISTORY: Non-contributory. TECHNIQUE: Digital bilateral breast eugenio (3D mammographic acquisition) in the CC and MLO projections. 2-D mediolateral oblique (MLO) and craniocaudad (CC) views of both breasts were obtained. CAD: Full Field Digital Mammography with Computer Added Detection was performed. COMPARISON: Comparison is made with prior study dated 09/04/2018 and 04/22/2017. FINDINGS: Breast Composition: The breasts are extremely dense, which lowers the sensitivity of mammography. There are no dominant masses or suspicious calcifications. No other significant abnormalities are identified. There has been no significant change since the prior study. BI/SCREEN MAMM (CAD) W/EUGENIO BILAT IMPRESSION: Stable bilateral screening mammogram. Yearly follow-up mammogram recommended. (A) ASSESSMENT CATEGORY: BIRADS Category 1: Negative. A letter regarding these results will be sent to the patient by the facility within 30 days. Approximately 10% of breast cancers are not detected by mammography. A normal mammogram should not delay biopsy of a clinically suspicious abnormality. [id number] Electronically Signed: Oliver Shine, at 8:18 EST , Service support , CC: Dr. Marilyn Foy DO; Dr. Gloria Bills DO Food Mixer Assembler: Signed Gloria Bills Start: 05-06-2019 End: 05-07-2019 Transvaginal Non- Comments: See Note; NOTES: [facility] Imaging Services [address] [facility] [place] [address] Transvaginal Non- MR#: [id number] Acct: [id number] Name: VIRGINIA VILLAGRAN Rep #: [id number] : 1970 F 48 From: Gordo Argueta MD PCP: Gloria Bills DO Status: REG CLI Study: Transvaginal Non- Date of Exam: 05/06/19 Exam# [id number] Ordering Dr: Gloria Bills DO STUDY: ULTRASOUND OF THE FEMALE PELVIS - COMPLETE REASON FOR EXAM: Female, 48 years old. Bloating. LMP: 08/13/2018 TECHNIQUE: Transabdominal and Transvaginal TECHNICAL QUALITY: Adequate. COMPARISON: None. FINDINGS: The uterus is anteverted and is in a midline position. The uterus measures 7.4 x 3.4 x 2.8 cm. The uterus is diffusely heterogeneous which can be seen with diffuse leiomyomatous change. At least 2 poorly marginated fibroids are seen, measuring approximately 2.7 and 2.9 cm and with calcifications. Endometrial echoes are 4.5 mm thick and hyperechoic. Normal uterine cervix. The ovaries are not visualized. There is no fluid in the cul-de-sac. The pre void volume of the bladder was 202 ml. US/Transvaginal Non- IMPRESSION: Although the uterus is small, it is heterogeneous and may have diffuse leiomyomatous change, along with at least 2 more focal fibroids. Electronically Signed: Gordo Argueta MD at 23:45 EDT , Service support , CC: Gloria Bills DO Food Mixer Assembler: Signed Gloria Bills Work Phone: Start: 05-06-2019 End: 05-07-2019 Pelvic (Non ) Comments: See Note; NOTES: [facility] Imaging Services [address] [place] [address] Pelvic (Non ) MR#: [id number] Acct: [id number] Name: VIRGINIA VILLAGRAN Rep #: [id number] : 1970 F 48 From: Gordo Argueta MD PCP: Gloria Bills DO Status: REG CLI Study: Pelvic (Non ) Date of Exam: 05/06/19 Exam# [id number] Ordering Dr: Gloria Bills DO STUDY: ULTRASOUND OF THE FEMALE PELVIS - COMPLETE REASON FOR EXAM: Female, 48 years old. Bloating. LMP: 08/13/2018 TECHNIQUE: Transabdominal and Transvaginal TECHNICAL QUALITY: Adequate. COMPARISON: None. FINDINGS: The uterus is anteverted and is in a midline position. The uterus measures 7.4 x 3.4 x 2.8 cm. The uterus is diffusely heterogeneous which can be seen with diffuse leiomyomatous change. At least 2 poorly marginated fibroids are seen, measuring approximately 2.7 and 2.9 cm and with calcifications. Endometrial echoes are 4.5 mm thick and hyperechoic. Normal uterine cervix. The ovaries are not visualized. There is no fluid in the cul-de-sac. The pre void volume of the bladder was 202 ml. US/Pelvic (Non ) IMPRESSION: Although the uterus is small, it is heterogeneous and may have diffuse leiomyomatous change, along with at least 2 more focal fibroids. Electronically Signed: Gordo Argueta MD at 23:45 EDT , Service support , CC: Gloria Bills DO Food Mixer Assembler: Signed Gloria Bills Work Phone: Start: 05-06-2019 End: 05-07-2019 Aorta Comments: See Note; NOTES: [facility] Imaging Services [address] [place] [address] Aorta MR#: [id number] Acct: [id number] Name: VIRGINIA VILLAGRAN Rep #: [id number] : 1970 F 48 From: Nevin Gomez MD PCP: Gloria Bills DO Status: REG CLI Study: Aorta Date of Exam: 05/06/19 Exam# [id number] Ordering Dr: Gloria Bills DO PROCEDURES: ULTRASOUND AORTA REASON FOR EXAM: Female, 48 years old. Abdominal mass. Evaluate for abdominal aortic aneurysm. TECHNIQUE: Ultrasound evaluation of the aorta was performed with real-time and static robles-scale imaging. COMPARISON: None. FINDINGS: There is atherosclerotic plaque formation of the abdominal aorta. Aorta measures: Proximal 2.2 cm. Middle 1.6 cm. Distal 1.6 cm. Aorta measure transversely: Proximal 1.7 cm. Middle 1.6 cm. Distal 1.7 cm. The peak systolic velocities of the proximal aorta is 81.9 cm/s, mid aorta 66.0 cm/s and distal aorta 101.0 cm/s. Right iliac artery measures: 0.8 cm. Right iliac artery measure transversely: 1.2 cm. Peak systolic velocity is 118 cm/s. Left iliac artery measures: 0.8 cm. Left iliac artery measure transversely: 1.2 cm. Peak systolic velocity is 118 cm/s. There is no demonstrated aneurysm.. US/Aorta IMPRESSION: Atherosclerotic disease with no evidence of aneurysmal dilatation of the aorta noted. Electronically Signed: Nevin Gomez MD at 5:02 EDT , Service support , CC: Gloria Bills DO Food Mixer Assembler: Signed Gloria Bills Work Phone: Start: 04-06-2019 [object Object] Comment on above: Result Comment: Total PSA test methodolo gy used is the Electrochemiluminescence Immunoassay. Performed By: #### C BCDIF, BMP, CK, LIPB, PSAS1, HBA1C ####[facility] [address] [place], [place] [phone] Start: 09-04-2018 End: 09-04-2018 SCREENING MAMM (CAD), BILAT Comments: See Note; NOTES: [facility] Imaging Services [address] [place] [address] SCREENING MAMM (CAD), BILAT MR#: [id number] Acct: [id number] Name: MILI VILLAGRANYULIANA Sheppard Rep #: [id number] : 1970 F 48 From: Oliver Shine MD PCP: Gloria Bills DO Status: [facility] Study: SCREENING MAMM (CAD), BILAT Date of Exam: 09/04/18 Exam# [id number] Ordering Dr: Janelle Giles MD MAMMOGRAPHY - BILATERAL SCREENING REASON FOR EXAM: Female, 48 years old. Routine annual screening examination. PERTINENT HISTORY: Non-contributory. History of the dimpling of both nipples. TECHNIQUE: Digital bilateral breast eugenio (3D mammographic acquisition) in the CC and MLO projections. 2-D mediolateral oblique (MLO) and craniocaudad (CC) views of both breasts were obtained. CAD: Full Field Digital Mammography with Computer Added Detection was performed. COMPARISON: Comparison is made with prior study April 22, 2017 and May 23, 2016. FINDINGS: Breast Composition: The breasts are extremely dense, which lowers the sensitivity of mammography. There are no dominant masses or suspicious calcifications. No other significant abnormalities are identified. There has been no significant change since the prior study. BI/SCREENING MAMM (CAD), BILAT IMPRESSION: Stable bilateral screening mammogram. Yearly follow-up mammogram recommended. (A) ASSESSMENT CATEGORY: BIRADS Category 1: Negative. A letter regarding these results will be sent to the patient by the facility within 30 days. Approximately 10% of breast cancers are not detected by mammography. A normal mammogram should not delay biopsy of a clinically suspicious abnormality. [id number] Electronically Signed: Oliver Shine MD at 8:44 EST , Service support , CC: Janelle Giles MD; Gloria Bills DO Food Mixer Assembler: Signed Gloria Bills Start: 01-01-2018 End: 01-01-2018 Downtime Report Comments: See Note; NOTES: [facility] Medical Records Department [address] [place] [address] Downtime Report MR#: [id number] Acct: [id number] Name: VIRGINIA VILLAGRAN Rep #: [id number] : 1970 47 From: Arjun Foy PCP: Gloria Bills DO Status: REG CLI This patient was seen during an EMR downtime December 15, 2017 - December 22, 2017. This patient may have a combination of paper and electronic documentation or all paper documentation. All documentation is viewable within the e-chart portion of [facility] for each patient visit. Gloria Bills Start: 04-22-2017 End: 04-22-2017 DIAG MAMM W/CAD, BILAT Comments: See Note; NOTES: [facility] Imaging Services [address] [place] [address] DIAG MAMM W/CAD, BILAT MR#: [id number] Acct: [id number] Name: VIRGINIA VILLAGRAN Rep #: [id number] : 1970 F 46 From: Oliver Shine MD PCP: Gloria Bills DO Status: REG CLI Study: DIAG MAMM W/CAD, BILAT Date of Exam: 04/22/17 Exam# [id number] Ordering Dr: Janelle Giles MD MAMMOGRAPHY - BILATERAL DIAGNOSTIC REASON FOR EXAM: Female, [...] appear to be vascular in nature. The calcifications in the right breast are visualized. No focal clustering is seen. No other significant abnormalities are identified. HPBI/DIAG MAMM W/CAD, BILAT IMPRESSION: Stable bilateral diagnostic mammogram. One year follow-up recommended. (A) ASSESSMENT CATEGORY: BIRADS Category 2: Benign. A letter regarding these results will be sent to the patient by the facility within 30 days. Approximately 10% of breast cancers are not detected by mammography. A normal mammogram should not delay biopsy of a clinically suspicious abnormality. Electronically Signed: Oliver Shine MD at 9:18 EDT Tel [phone], Service support , CC: Janelle Giles MD; Gloria Bills DO Food Mixer Assembler: Signed Glorialali Bills Start: 04-14-2017 End: 04-17-2017 Breast Limited Unilateral Comments: See Note; NOTES: [facility] Imaging Services [address] [place] [address] Breast Limited Unilateral MR#: [id number] Acct: [id number] Name: VIRGINIA VILLAGRAN Rep #: [id number] : 1970 F 46 From: Marysol Conroy MD PCP: Gloria Bills DO Status: REG CLI Study: Breast Limited Unilateral Date of Exam: 04/14/17 Exam# [id number] Ordering Dr: Janelle Giles MD STUDY: ULTRASOUND BREAST - RIGHT REASON FOR EXAM: Female, 46 years old. AREA OF PALP LUMP IN RIGHT BREAST SLIGHTLY INVERTED NIPPLES HX OF 45# WEIGHT LOSS IN 15 MONTHS TECHNIQUE: Axial and longitudinal images of the RIGHT breast were performed with a high resolution ultrasound transducer. COMPARISON: Apr 14 2017 2:37pm FINDINGS: RIGHT Breast: There is a retroareolar lesion. The lesion measures 1 x 1.5 x 0.4 cm in size. Most likely represent a lymph node. Posterior Enhancement: Yes. Posterior Shadowing: None. Margins: Sharp and smooth. Echogenicity: Isoechoic. Compression effect on Shape: No change. IMPRESSION: There is a retroareolar lesion. The lesion measures 1 x 1.5 x 0.4 cm in size. Most likely represent a lymph node. ASSESSMENT CATEGORY: BIRADS Category 0: Incomplete. Need additional imaging evaluation. Magnification mammogram views would be recommended. A letter regarding these results will be [...] Category 0: Incomplete. Need additional imaging evaluation. Spot magnification views of the medial aspect of the left breast. A letter regarding these results will be sent to the patient by the facility within 30 days. Electronically Signed: Marysol Conroy MD at 12:36 EDT Tel , Service support , CC: Janelle Giles MD; Gloria Bills DO Food Mixer Assembler: Signed Gloria Bills Start: 04-14-2017 End: 04-17-2017 DIAG MAMM W/CAD, BILAT Comments: See Note; NOTES: [facility] Imaging Services [address] [place] [address] DIAG MAMM W/CAD, BILAT MR#: [id number] Acct: [id number] Name: VIRGINIA VILLAGRAN Rep #: [id number] : 1970 F 46 From: Marysol Conroy MD PCP: Gloria Bills DO Status: REG CLI Study: DIAG MAMM W/CAD, BILAT Date of Exam: 04/14/17 Exam# [id number] Ordering Dr: Janelle Giles MD MAMMOGRAPHY - BILATERAL SCREENING REASON FOR EXAM: Female, 46 years old. Routine annual screening examination. PERTINENT HISTORY: NO FAM HX RT BREAST LUMP FOUND BY PT 3WEEKS AGO-NOT FELT TODAY BUT AREA MARKED WITH A TRIANGLE MARKER. BILAT NIPPLE DIMPLING IN BOTH AREOLAS NO SX PAST PROGESTERONE USE FOR 2 YRS TECHNIQUE: Digital bilateral breast eugenio (3D mammographic acquisition) in the CC and MLO projections. 2-D mediolateral oblique (MLO) and craniocaudad (CC) views of both breasts were obtained. CAD: Full Field Digital Mammography with Computer Added Detection was performed. COMPARISON: None. FINDINGS: Breast Composition: The breasts are heterogeneously dense, which may obscure small masses. There is a cluster of microcalcification in the central part of the right breast seen on the CC view for which further evaluation by magnification views and ultrasound would be recommended. There is a cluster of microcalcification in the medial aspect of the left breast seen on CC view for which further evaluation by magnification views and ultrasound would be recommended. No other significant abnormalities are identified. HPBI/DIAG MAMM W/CAD, BILAT IMPRESSION: Further imaging evaluation recommended, as described above. (E) ASSESSMENT CATEGORY: BIRADS Category 0: Incomplete. Need additional imaging evaluation. A letter regarding these results will be sent to the patient by the facility within 30 days. Approximately 10% of breast cancers are not detected by mammography. A normal mammogram should not delay biopsy of a clinically suspicious abnormality. [id number] Electronically Signed: Marysol Conroy MD at 12:00 EDT Tel , Service support , CC: Janelle Giles MD; Gloria Bills DO Food Mixer Assembler: Signed Gloria Bills Start: 05-23-2016 End: 05-23-2016 Bilat Scrn Digital AND CAD Comments: See Note; NOTES: [facility] Imaging Services [address] [place] [address] Verdana 4d Bilat Scrn Digital AND CAD MR#: [id number] Acct: [id number] Name: VIRGINIA VILLAGRAN Rep #: [id number] : 1970 F 45 From: Oliver Shine MD PCP: Gloria Bills DO Status: REG CLI Study: Bilat Scrn Digital AND CAD Date of Exam: 05/23/16 Exam# [id number] Ordering Dr: Janelle Giles MD MAMMOGRAPHY - BILATERAL SCREENING REASON FOR EXAM: Female, 45 years old. Routine annual screening examination. PERTINENT HISTORY: Non-contributory. TECHNIQUE: Digital bilateral breast eugenio (3D mammographic acquisition) in the CC and [...] no significant change since the prior study. HPBI/Bilat Scrn Digital AND CAD IMPRESSION: Stable bilateral screening mammogram. Yearly follow-up mammogram recommended. (A) ASSESSMENT CATEGORY: BIRADS Category 1: Negative. A letter regarding these results will be sent to the patient by the facility within 30 days. Approximately 10% of breast cancers are not detected by mammography. A normal mammogram should not delay biopsy of a clinically suspicious abnormality. [id number] Electronically Signed: Oliver Shine MD at 9:46 EST Tel [phone], Service support [phone], CC: Janelle Giles MD; Gloria Bills DO Food Mixer Assembler: Signed Gloria Bills Start: 12-01-2015 End: 12-01-2015 Ecg routine ecg w/least 12 lds w/i&r [MEASUREMENTS ANALYSIS] Date of Test: 12/01/2015 07:39:32; Heart Rate: 64; IL Interval: 114; QRS: 96; QT Interval: 380; Corrected QT Interval (QTc): 387; P [place]: 35; QRS [place]: 37; T [place]: 54; Blood Pressure: 122/78 [ECG DIAGNOSTIC STATEMENTS] Date of Test: 12/01/2015 07:39:32; Summary: Sinus Rhythm -Short IL syndrome Evelia = 114BORDERLINE RHYTHM Gloria Bills Work Phone: Start: 04-18-2015 End: 04-18-2015 Bilat Scrn Digital AND CAD Comments: See Note; NOTES: [facility] Imaging Services [address] [place] [address] Breast Imaging Report MR#: [id number] Acct: [id number] Name: VIRGINIA VILLAGRAN Rep #: [id number] : 1970 F 44 From: Oliver Shine MD PCP: Gloria Bills DO Status: REG CLI Study: Bilat Scrn Digital AND CAD Date of Exam: 04/18/15 Exam# [id number] Ordering Dr: Janelle Giles MD MAMMOGRAPHY - BILATERAL SCREENING REASON FOR EXAM: Female, 44 years old. Routine annual screening examination. PERTINENT HISTORY: Non-contributory. TECHNIQUE: Digital examination. Mediolateral oblique (MLO) and craniocaudad (CC) views of [...] the prior study. IMPRESSION: Stable bilateral screening mammogram. Yearly follow-up recommended. (A) ASSESSMENT CATEGORY: BIRADS Category 1: Negative. A letter regarding these results will be sent to the patient by the facility within 30 days. Approximately 10% of breast cancers are not detected by mammography. A normal mammogram should not delay biopsy of a clinically suspicious abnormality. Electronically Signed: Oliver Shine MD at 7:55 EDT Tel [phone], Service support [phone], CC: Janelle Giles MD; Gloria Bills DO Food Mixer Assembler: Signed Gloria Bills Start: 03-06-2015 End: 03-06-2015 Operative Report Comments: See Note; NOTES: [facility] Medical Records Department [address] [place] [address] Operative Report MR#: [id number] Acct: [id number] Name: VIRGINIA VILLAGRAN Rep #: [id number] : 1970 44 From: Janelle Giles MD PCP: Gloria Bills DO Status: [facility] DATE OF SERVICE: 02/28/2015 DATE OF SERVICE: February 28, 2015. PREOPERATIVE DIAGNOSES: Irregular menses, thickened endometrium. POSTOPERATIVE DIAGNOSES: Irregular menses, thickened endometrium. PROCEDURE: D and C, hysteroscopy that being diagnostic. SURGEON: Janelle Giles M.D. ESTIMATED BLOOD LOSS: Minimal. FLUIDS: Lactated Ringer's. MEDICATIONS: Include cefotetan IV preoperatively and 1% local lidocaine to the cervix, 10 mL total. ANESTHESIA: MAC. URINE: Straight catheterization. INDICATION: The patient is a 44-year-old white female who presents to the office with ongoing bleeding and irregular menstrual cycles. Despite the active bleeding that she was undergoing, it was noted that she had thickened endometrium per ultrasound. The patient was consented for and accepted the risks of procedures of D and C, hysteroscopy. We reviewed the preoperative preparation, the intraoperative procedures and the postoperative recovery. [...] difficult to dilate and the canal almost seemed bearing more towards the right as opposed to being a straight canal, the hysteroscope being a 5-mm hysteroscope was placed into the endometrial cavity, but it was noted that there was just stiff tissue likely in relationship to disseminated fibroid-like tissue impinging upon that canal. There was ____ flimsy tissue noted compared to what was noted on the ultrasound. Sharp curettage revealed immediate uterine cry and descend again, notation of [...] at the beginning of the case had been removed. The hysteroscope was removed. All instruments from the vagina were removed. Sponge and instrument counts correct x2. The patient awakened in stable condition, to be discharged home. Will follow up in the office in 1-2 weeks' time. Janelle Giles MD T: NTS JOB: [id number] 03/06/15 0714 <Electronically signed by Janelle Giles MD> Date Janelle Giles MD Cosigner Signature (If Indicated): Date CC: Janelle Giles MD; Gloria Bills DO Date Dictated: 03/02/15 1336 Date Transcribed: 03/02/151335 Food Mixer Assembler: Signed Gloria Bills Start: 02-28-2015 End: 02-28-2015 Operative Report Comments: See Note; NOTES: [facility] Medical Records Department [address] [place] [address] Operative Report 02/28/15 1617 MR#: [id number] Acct: [id number] Name: VIRGINIA VILLAGRAN Rep #: [id number] : 1970 44 From: Janelle Giles MD PCP: Gloria Bills DO Status: REG SDC Y Location: [place] [address] Operative Report (Blank) Date of Procedure: 02/28/15 Preop: Irregular menses, thickened endometrium Postop: Same Procedure: D and C, hysteroscopy, diagnostic Surgeon: Tisha EBL: minimal Fluids: Lactated ringers Meds: Cefotetan and 1% Lidocaine locally - 10cc Anesthesia: MAC Urine: straight cath 02/28/15 1618 <Electronically signed by Janelle Giles MD> Date Janelle Giles MD CC: Janelle Giles MD; Gloria Bills DO Signed Gloria Bills Start: 02-28-2015 End: 02-28-2015 Discharge Instruction Comments: See Note; NOTES: [facility] Medical Records Department [address] [place] [address] Instructions for Home/Discharge Instructions 02/28/15 1615 MR#: [id number] Acct: [id number] Name: TYSHAWNVIRGINIA Rep #: [id number] : 1970 44 From: Janelle Giles MD PCP: Gloria Bills DO Status: REG SDC Discharge Diet: No Restrictions Discharge Activity: Return to Normal Activity, May Shower, May Take a Tub Bath - in 2 weeks. Return to work on:: 03/01/15 May shower in (days): 0 - Now May resume sexual activity in: 1 week Weight Bearing Status: Full weight bearing Lifting Restrictions: none Cleanse incision/area with: Soap AND Water Allergies/Adverse Reactions: Allergies No Known Allergies Allergy (Verified 02/21/15 15:27) Medications to take at Discharge Atorvastatin Calcium [Lipitor] 20 mg PO QHS 02/21/15 Balsalazide Disodium 6.75 gm PO BID 02/21/15 Calcium Citrate/Vitamin D3 [Calcium Citrate - Vit D Tablet] 1 each PO DAILY 02/21/15 Cholecalciferol (Vitamin D3) [Vitamin D3] 0 unit PO DAILY 02/21/15 Multivitamins,Therapeuti c [Multivitamin] 1 tablet PO DAILY 02/21/15 Ferrum-3 Fatty Acids [Fish Oil] 300 mg PO DAILY 02/21/15 Valsartan/Hydrochlorothi azide [Diovan Hct 160-25 MG Tablet] 1 tablet PO DAILY 02/21/15 Please Follow Up With: Janelle Giles When: 1-2 weeks postop 02/28/15 1616 <Electronically signed by Janelle Giles MD> Date Janelle Giles MD CC: Gloria Leavitt Start: 11-25-2014 End: 11-25-2014 Ecg routine ecg w/least 12 lds w/i&r [MEASUREMENTS ANALYSIS] Date of Test: 11/25/2014 07:52:19; Heart Rate: 68; IL Interval: 118; QRS: 92; QT Interval: 374; Corrected QT Interval (QTc): 388; P [place]: 33; QRS [place]: 35; T [place]: 30; Blood Pressure: 118/64 [ECG DIAGNOSTIC STATEMENTS] Date of Test: 11/25/2014 07:52:19; Summary: Sinus Rhythm -Short IL syndrome Evelia = 118BORDERLINE RHYTHM [MEASUREMENTS ANALYSIS] Date of Test: 11/25/2014 07:51:53; Heart Rate: 65; IL Interval: 116; QRS: 92; QT Interval: 372; Corrected QT Interval (QTc): 380; P [place]: 36; QRS [place]: 35; T [place]: 31; Blood Pressure: 118/64 [ECG DIAGNOSTIC STATEMENTS] Date of Test: 11/25/2014 07:51:53; Summary: Sinus Rhythm -Short IL syndrome Evelia = 116BORDERLINE RHYTHM Gloria Bills Work Phone: Comment on above: nsr no acute chgn Start: 09-28-2012 End: 09-28-2012 Follow Up Appt Other Yonathan Reed MD Start: 07-01-2012 End: 07-02-2012 *BMP Yonathan Reed MD Start: 07-01-2012 End: 07-01-2012 aPTT in Platelet poor plasma by Coagulation assay Yonathan Reed MD Start: 07-01-2012 End: 07-02-2012 CBC W Auto Differential panel - Blood Yonathan Reed MD Start: 07-01-2012 End: 07-02-2012 INR in Platelet poor plasma by Coagulation assay Yonathan Reed MD Start: 07-01-2012 End: 07-01-2012 Nurse Teaching (no charge) Yonathan schneider MD Start: 06-29-2012 End: 09-28-2012 Left Heart Cath Yonathan Reed MD Start: 06-17-2012 End: 06-29-2012 *BMP Yonathan Reed MD Start: 06-17-2012 End: 06-17-2012 Ecg routine ecg w/least 12 lds w/i&r Yonathan Reed MD Start: 06-17-2012 End: 06-17-2012 Follow Up Appt 3 months Yonathan Reed MD Colonoscopy Indira Valdes Comment on above: 04/08/18 Colonoscopy Samantha Causey Comment on above: 04/08/18 Colonoscopy Mayuri Gravsal Comment on above: 04/08/18 Colonoscopy Mayuri Gravsal Comment on above: 04/08/18 Colonoscopy Indira Valdes Comment on above: 04/08/18 Colonoscopy Gisela Cross LP N Comment on above: 04/08/18 Colonoscopy Kady Ady COLORIST Comment on above: 04/08/18 Colonoscopy Kayela Donell FIELD MARKETING MANAGER Comment on above: 04/08/18 Colonoscopy Kayela Donell FIELD MARKETING MANAGER Comment on above: 04/08/18 Colonoscopy Samantha Slarb LP N Comment on above: 04/08/18 Colonoscopy Candace Hess MA Comment on above: 04/08/18 Colonoscopy ANDREA Machado LPN Comment on above: 04/08/18 D&C Indira Valdes Comment on above: 02/25 D&C Samantha Slarb Comment on above: 02/25 D&C Mayuri Gravius Comment on above: 02/25 D&C Mayuri Gravius Comment on above: 02/25 D&C Indira Valdes Comment on above: 02/25 D&C Gisela Cross LP N Comment on above: 02/25 D&C Kady Ady COLORIST Comment on above: 02/25 D&C Kayela Grand FIELD MARKETING MANAGER Comment on above: 02/25 D&C Kayela Donell FIELD MARKETING MANAGER Comment on above: 02/25 D&C Samantha Slarb LP N Comment on above: 02/25 D&C Candace Hess MA Comment on above: 02/25 D&C ANDREA Machado LPN Comment on above: 02/25 Tonsillectomy Indira gavin Comment on above: childhood Tonsillectomy Samantha Slarb Comment on above: childhood Tonsillectomy Mayuri Gravius Comment on above: childhood Tonsillectomy Mayuri Gravius Comment on above: childhood Tonsillectomy Indira gavin Comment on above: childhood Tonsillectomy Gisela Rosales PN Comment on above: childhood Tonsillectomy Kady Ady COLORIST Comment on above: childhood Tonsillectomy Kayela Grand FIELD MARKETING MANAGER Comment on above: childhood Tonsillectomy Kayela Donell FIELD MARKETING MANAGER Comment on above: childhood Tonsillectomy Samantha Slarb L NIKA Comment on above: childhood Tonsillectomy Candace Saab Comment on above: childhood Tonsillectomy ANDREA Machado LPN Comment on above: childhood Plan of Treatment Date Care Activity Detail Author [facility]: [facility] Start: 04-24-2023 Procedure Education Eprescribe d prescriptions (G8553) [facility]; [facility] Work Phone: Start: 04-24-2023 Provider Instruction s for Treatment [facility]; [facility] Work Phone: Start: 04-24-2023 25 hydroxy includes fractions if performed CALCIFIDIOL (12398) VIT D 25 [facility]; [facility] Work Phone: Start: 04-24-2023 Assay of thyroid stimulating hormone tsh TSH (60676) [facility]; [facility] Work Phone: Start: 04-24-2023 Urnls dip stick/tabl et reagent auto microscopy URINALYSIS, W/ MICRO (48997) [facility]; [facility] Work Phone: Start: 04-24-2023 Urine albumin quantitative MICROALBUMIN: CREATININE RATIO (31505) AND (76068) [facility]; [facility] Work Phone: Start: 04-24-2023 Comprehensive metabo lic panel METABOLIC PANEL, COMPREHENSIVE (98378) [facility]; [facility] Work Phone: Start: 04-24-2023 Lipid panel LIPID PANEL (09773) [facility]; [facility] Work Phone: Start: 04-24-2023 Blood count complete auto&auto difrntl wbc CBC W/AUTO DIFF WBC (52862) [facility]; [facility] Work Phone: Start: 04-23-2023 Protein measurement [facility] Start: 03-04-2023 Procedure Education Eprescribe d prescriptions (G8553) [facility]; [facility] Work Phone: Start: 03-04-2023 Provider Instruction s for Treatment Follow up in 2 weeks [facility]; [facility] Work Phone: Start: 11-26-2022 Procedure Education Eprescribe d prescriptions (G8553) [facility]; [facility] Work Phone: Start: 11-26-2022 Provider Instruction s for Treatment Follow up if no improvement or if symptoms worsen [facility]; [facility] Work Phone: Start: 10-25-2022 Hepatic function panel HEPATIC FUNCTION PANEL (32644) [facility]; [facility] Work Phone: Comment on above: do December 2022 Start: 10-25-2022 Lipid panel LIPID PANEL (47047) [facility]; [facility] Work Phone: Comment on above: do in December 2022 Start: 10-25-2022 Procedure Education Eprescribe d prescriptions (G8553) [facility]; [facility] Work Phone: Start: 10-25-2022 Provider Instruction s for Treatment HTN/CAD Red Flags [facility]; [facility] Work Phone: Start: 10-25-2022 25 hydroxy includes fractions if performed CALCIFEDIOL (84402) [facility]; [facility] Work Phone: Start: 10-25-2022 Assay of thyroid stimulating hormone tsh TSH (59626) [facility]; [facility] Work Phone: Start: 10-25-2022 Urnls dip stick/tabl et reagent auto microscopy URINALYSIS, W/ MICRO (72586) [facility]; [facility] Work Phone: Start: 10-25-2022 Urine albumin quantitative MICROALBUMIN: CREATININE RATIO (17904) AND (19786) [facility]; [facility] Work Phone: Start: 10-25-2022 Comprehensive metabo lic panel METABOLIC PANEL, COMPREHENSIVE (64982) [facility]; [facility] Work Phone: Start: 10-25-2022 Blood count complete auto&auto difrntl wbc CBC W/AUTO DIFF WBC (09151) [facility]; [facility] Work Phone: Start: 07-22-2022 Lipid panel LIPID PANEL (89466) [facility]; [facility] Work Phone: Start: 01-17-2022 Procedure Education Eprescribe d prescriptions (G8553) [facility]; [facility] Work Phone: Start: 01-17-2022 Provider Instruction s for Treatment [facility]; [facility] Work Phone: Start: 01-17-2022 Basic metabolic pane l calcium total Metabolic Panel, Basic (86676) [facility]; [facility] Work Phone: Start: 07-26-2021 Procedure Education Eprescribe d prescriptions (G8553) [facility]; [facility] Work Phone: Start: 07-26-2021 Provider Instruction s for Treatment [facility]; [facility] Work Phone: Start: 07-26-2021 25 hydroxy includes fractions if performed CALCIFIDIOL (67579) VIT D 25 [facility]; [facility] Work Phone: Start: 07-26-2021 Assay of thyroid stimulating hormone tsh TSH (39968) [facility]; [facility] Work Phone: Start: 07-26-2021 Urnls dip stick/tabl et reagent auto microscopy URINALYSIS, W/ MICRO (18817) [facility]; [facility] Work Phone: Start: 07-26-2021 Urine albumin quantitative MICROALBUMIN: CREATININE RATIO (29217) AND (60589) [facility]; [facility] Work Phone: Start: 07-26-2021 Comprehensive metabo lic panel METABOLIC PANEL, COMPREHENSIVE (52431) [facility]; [facility] Work Phone: Start: 07-26-2021 Blood count complete auto&auto difrntl wbc CBC W/AUTO DIFF WBC (53577) [facility]; [facility] Work Phone: Start: 07-26-2021 Lipid panel LIPID PANEL (41709) [facility]; [facility] Work Phone: Start: 01-19-2021 Procedure Education Eprescribe d prescriptions (G8553) [facility]; [facility] Work Phone: Start: 01-19-2021 Provider Instruction s for Treatment [facility]; [facility] Work Phone: Start: 01-19-2021 Cyanocobalamin vitam in b-12 VITAMIN B-12 (CYANOCOBALAMIN) (44459) [facility]; [facility] Work Phone: Start: 06-23-2020 Procedure Education Eprescribe d prescriptions (G8553) [facility]; [facility] Work Phone: Start: 06-23-2020 Provider Instruction s for Treatment [facility]; [facility] Work Phone: Start: 06-23-2020 TSH Qn TSH (59580) [facility]; [facility] Work Phone: Start: 06-23-2020 Urnls dip stick/tabl et reagent auto microscopy URINALYSIS, W/ MICRO (84273) [facility]; [facility] Work Phone: Start: 06-23-2020 Urine albumin quantitative MICROALBUMIN: CREATININE RATIO (64947) AND (88633) [facility]; [facility] Work Phone: Start: 06-23-2020 Comprehensive metabo lic panel METABOLIC PANEL, COMPREHENSIVE (34396) [facility]; [facility] Work Phone: Start: 06-23-2020 Blood count complete auto&auto difrntl wbc CBC W/AUTO DIFF WBC (61227) [facility]; [facility] Work Phone: Start: 06-23-2020 Lipid panel LIPID PANEL (87354) [facility]; [facility] Work Phone: Start: 12-17-2019 Procedure Education Eprescribe d prescriptions (G8553) [facility] Work Phone: Start: 12-17-2019 Provider Instruction s for Treatment [facility] Work Phone: Start: 05-05-2019 Provider Instruction s for Treatment [facility] Work Phone: Start: 01-15-2019 Provider Instruction s for Treatment [facility] Work Phone: Start: 01-15-2019 Glucose [Mass/Vol] GLUCOSE (76474) [facility] Work Phone: Start: 01-15-2019 Lipoprotein blood qu an numbers & subclasses NMR Profile (27010) [facility] Work Phone: Start: 12-10-2018 25 hydroxy includes fractions if performed CALCIFEDIOL (15791) [facility] Work Phone: Start: 12-10-2018 Comprehensive metabo lic panel METABOLIC PANEL, COMPREHENSIVE (94687) [facility] Work Phone: Start: 12-10-2018 Blood count complete auto&auto difrntl wbc CBC W/AUTO DIFF WBC (19641) [facility] Work Phone: Start: 12-10-2018 Assay of thyroid stimulating hormone tsh TSH (THYROID STIMULATING HORMONE) (57595) [facility]; [facility] Work Phone: Start: 12-10-2018 TSH Qn TSH (THYROID STIMULATING HORMONE) (24608) [facility] Work Phone: Start: 12-10-2018 Urnls dip stick/tabl et reagent auto microscopy URINALYSIS, W/ MICRO (09056) [facility] Work Phone: Start: 12-10-2018 Urine albumin quantitative MICROALBUMIN: CREATININE RATIO (93575) AND (25743) [facility] Work Phone: Start: 12-10-2018 Lipoprotein blood qu an numbers & subclasses NMR Profile (73481) [facility] Work Phone: Start: 05-29-2018 Provider Instruction s for Treatment [facility] Work Phone: Start: 05-29-2018 25 hydroxy includes fractions if performed CALCIFIDIOL (23498) VIT D 25 [facility] Work Phone: Start: 05-29-2018 Urnls dip stick/tabl et reagent auto microscopy URINALYSIS, W/ MICRO (55253) [facility] Work Phone: Start: 05-29-2018 Urine albumin quantitative MICROALBUMIN: CREATININE RATIO (22227) AND (49687) [facility] Work Phone: Start: 05-29-2018 Comprehensive metabo lic panel METABOLIC PANEL, COMPREHENSIVE (21522) [facility] Work Phone: Start: 05-29-2018 Blood count complete auto&auto difrntl wbc CBC W/AUTO DIFF WBC (98744) [facility] Work Phone: Start: 05-29-2018 Protein mass conc LIPOPROTEIN, BLD, BY NMR (43955) [facility] Work Phone: Start: 12-19-2017 Procedure Education Eprescribe d prescriptions (G0092) [facility] Work Phone: Start: 12-19-2017 Provider Instruction s for Treatment Reviewed Lab [facility] Work Phone: Start: 12-12-2017 25 hydroxy includes fractions if performed CALCIFEDIOL (34357) [facility] Work Phone: Start: 12-12-2017 Urine albumin quantitative MICROALBUMIN: CREATININE RATIO (26070) AND (87670) [facility] Work Phone: Start: 12-12-2017 Urinalysis qual/semiquant except immunoassays URINALYSIS (31917) [facility] Work Phone: Start: 12-12-2017 Assay of thyroid stimulating hormone tsh TSH (47597) [facility]; [facility] Work Phone: Start: 12-12-2017 Thyrotropin Qn TSH (75154) [facility] Work Phone: Start: 12-12-2017 Blood count complete automated CBC (Auto) (99508) [facility] Work Phone: Start: 12-12-2017 Comprehensive metabo lic panel Metabolic Panel, Comprehensive (92564) [facility] Work Phone: Start: 12-12-2017 Lipid panel Lipid Panel (21762) [facility] Work Phone: Start: 11-05-2017 Assay of thyroid stimulating hormone tsh TSH (18508) [facility]; [facility] Work Phone: Start: 11-05-2017 Lipid panel LIPID PANEL (50373) [facility] Work Phone: Start: 11-05-2017 Thyrotropin Qn TSH (54673) [facility] Work Phone: Start: 06-03-2017 End: 06-03-2017 Follow-up visit [facility] Work Phone: Start: 06-03-2017 End: 06-03-2017 Appointment Appointment [facility] Work Phone: Start: 05-09-2017 Provider Instruction s for Treatment [facility] Work Phone: Start: 11-04-2016 Provider Instruction s for Treatment [facility] Work Phone: Start: 05-31-2016 Procedure Education Eprescribe d prescriptions (G8553) [facility] Work Phone: Start: 05-31-2016 Provider Instruction s for Treatment Follow up in 6 months [facility] Work Phone: Start: 12-01-2015 Procedure Education Eprescribe d prescriptions (G8553) [facility] Work Phone: Start: 12-01-2015 Provider Instruction s for Treatment [facility] Work Phone: Start: 06-02-2015 Patient Education High Blood P ressure (Essential Hypertension) *: blood [facility] Work Phone: Start: 06-02-2015 Procedure Education Eprescribe d prescriptions (G8553) [facility] Work Phone: Start: 06-02-2015 Provider Instruction s for Treatment [facility] Work Phone: Start: 11-25-2014 Procedure Education Eprescribe d prescriptions (G8553) [facility] Work Phone: Start: 11-25-2014 Provider Instruction s for Treatment [facility] Work Phone: Start: 11-25-2014 25 hydroxy includes fractions if performed Vitamin D Hydroxy (76720) [facility] Work Phone: Start: 11-25-2014 End: 11-25-2014 Ecg routine ecg w/least 12 lds w/i&r EKG (00390) [facility]; [facility] Work Phone: Comment on above: nsr no acute chgn Start: 11-25-2014 Assay of thyroid stimulating hormone tsh TSH (72966) [facility]; [facility] Work Phone: Start: 11-25-2014 Thyrotropin Qn TSH (34805) [facility] Work Phone: Start: 11-25-2014 Urine albumin quantitative MICROALBUMIN: CREATININE RATIO (38059) AND (46648) [facility] Work Phone: Start: 11-25-2014 Comprehensive metabo lic panel METABOLIC PANEL, COMPREHENSIVE (83872) [facility] Work Phone: Start: 11-25-2014 Lipid panel LIPID PANEL (40070) [facility] Work Phone: Start: 11-25-2014 Blood count manual c ell count each CBC with auto diff (94381) [facility] Work Phone: Start: 10-06-2013 Provider Instruction s for Treatment [facility] Work Phone: Start: 09-29-2012 Hepatic function panel HEPATIC FUNCTION PANEL (10601) [facility] Work Phone: Comment on above: recheck in 2 wee ks Start: 09-28-2012 End: 09-28-2012 Follow Up Appt Other Follow Up Appt Other [facility] Work Phone: Start: 09-25-2012 Provider Instruction s for Treatment [facility] Work Phone: Start: 07-01-2012 End: 07-02-2012 *BMP *BMP [facility] Work Phone: Start: 07-01-2012 End: 07-01-2012 aPTT *PTT-Partial Thromboplastin Time [facility] Work Phone: Start: 07-01-2012 End: 07-02-2012 CBC W Auto Differential panel - Blood *CBC without Diff [facility] [employer] Work Phone: Start: 07-01-2012 End: 07-02-2012 INR Coag RelTime (PPP) *PT/INR [facility] [employer] Work Phone: Start: 06-29-2012 End: 09-28-2012 Left Heart Cath Left Heart Cath [facility] [employer] Work Phone: Start: 06-17-2012 End: 06-29-2012 *BMP *BMP [facility] [employer] Work Phone: Start: 06-17-2012 End: 06-17-2012 Ecg routine ecg w/least 12 lds w/i&r EKG (In office) [facility] [employer] Work Phone: Start: 06-17-2012 End: 06-17-2012 Follow Up Appt 3 months Follow Up Appt 3 months [facility] [employer] Work Phone: Start: 05-29-2012 Provider Instruction s for Treatment [facility] Work Phone: Start: 05-25-2012 Dna antibody [place]/double stranded DNA ANTIBODY-NATV/DBL ST (12789) test code 793187 [facility] Work Phone: Start: 05-25-2012 Protein mass conc ANTI-COREMAKER MACHINE (AN TI RIBONUCLEAR PROTEIN ANTIBODY) (27953) test code 332371 [facility] Work Phone: Start: 05-25-2012 Extractable nuclear antigen antibody any method [facility] Work Phone: Start: 05-25-2012 Rheumatoid factor quantitative RHEUMATOID FACTOR-QUANT (96230) test code 789146 [facility] Work Phone: Start: 05-22-2012 Patient Education Heart Palpit ations *: heart palpitations [facility] Work Phone: Start: 05-22-2012 Provider Instruction s for Treatment [facility] Work Phone: Start: 05-22-2012 Fibrin dgradj produc ts d-dimer quantitative D-Dimer (32876) [facility] Work Phone: Path report.final Dx Spec [facility] Work Phone: [facility] Work [facility]: [facility] Work [facility] Work Phone: [facility] Work Phone: [facility] Work Phone: [facility] Work Phone: [facility] Work Phone: [facility] Work Phone: [facility] Work Phone[facility] Work Phone[facility] Work Phone[facility] Work Phone[facility] Work Phone: [facility] Work Phone: [facility]; [facility] Work Phone: [facility]; [facility] Work Phone: [facility]; [facility] Work Phone: [facility]; [facility] Work Phone: [facility]; [facility] Work Phone: Immunizations Immunization Date Immunization Notes Care Provider [facility] 10-02-2020 zoster vaccine, live Luca Bills DO Work Phone: [facility]; [facility] Work Phone: 08-09-2020 COVID-19 (Pfizer) Gloria cronin DO Work Phone: [facility]; [facility] Work Phone: 07-19-2020 COVID-19 (Pfizer) Gloria cronin DO Work Phone: [facility]; [facility] Work Phone: 05-02-2020 zoster vaccine, live Luca Bills DO Work Phone: [facility]; [facility] Work Phone: 04-13-2020 zoster vaccine, live Gloria Bills [facility]; [facility] Work Phone: 07-14-2019 influenza, seasonal, injectable Gloria Bills [facility]; [facility] Work Phone: Payers Date Payer Category Payer Unknown 2023 Self-pay [id number] 2020 Unknown [id number] 2018 Unknown [id number] 2010 Unknown [id number] 1968 Unknown [id number] 2.16.84 [id number] 1968 Unknown [id number] 2.16.84 [id number] 1968 Unknown [id number] 2.16.8 [id number] 1968 Unknown [id number] 2.16.8 [id number] Unknown [id number] Unknown [id number] 2.16.8 [id number] Unknown [id number] 2.16.8 [id number] Unknown [id number] 2.16.8 [id number] Unknown [id number] 2.16.8 [id number] Unknown [id number] 2.16.8 [id number] Unknown [id number] 2.16.8 [id number] Unknown [id number] 2.16.8 [id number] Unknown [id number] 2.16.8 [id number] Unknown [id number] 2.16.8 [id number] Unknown [id number] 2.16.8 [id number] Unknown [id number] 2.16.8 [id number] Social History Date Type Detail Facility Alcohol Use: Never smoker [facility] Work Phone: No Caffeine Use [facility] Work Phone: Tobacco use: Never smoker. [facility] Work Phone: Alcohol Use: Alcohol Use: [facility]; [facility] Work Phone: Tobacco use: Tobacco use: [facility]; [facility] Work Phone: Start: 04-29-2021 End: 09-02-2023 Tobacco smoking status IDIS Unknown if ever smoked [facility] Start: 1970 Sex Assigned At Female W [facility] Start: 09-02-2023 Tobacco smoking status NHIS Never smoked tobacco (finding) [facility] Start: 09-29-2024 End: 10-13-2024 Sex Female (finding) [facility] spital Functional Status Date Assessment Result Facility 01-15-2019 LP-IR Score LP-IR Score <25 [facility] Work Phone: Comment on above: INSULIN RESISTANCE Silver GRAY <--Insulin Sensitive Insulin Resistant--> Percentile in Reference PopulationInsulin Resistance ScoreLP-IR Score Low 25th 50th 75th High <27 27 45 63 >63LP-IR Score is inaccurate if patient is non-fasting. .The LP-IR score is a laboratory developed index that has beenassociated with insulin resistance and diabetes risk and should beused as one component of a physician's clinical assessment. TheLP-IR score listed above has not been cleared by the [place] Food andDrug Administration. PATIENT WAS FASTINGP ERFORMED BY: [employer] [address] [id number] BY: [facility] WheelsBristol-My[facility] Squ[facility] Children's [id number] [facility] [id number] 07-29-2018 LP-IR Score LP-[facility] Score <25 [facility] Work Phone: Comment on above: INSULIN RESISTANCE Silver GRAY <--Insulin Sensitive Insulin Resistant--> Percentile in Reference PopulationInsulin Resistance ScoreLP-IR Score Low 25th 50th 75th High <27 27 45 63 >63LP-IR Score is inaccurate if patient is non-fasting. .The LP-IR score is a laboratory developed index that has beenassociated with insulin resistance and diabetes risk and should beused as one component of a physician's clinical assessment. TheLP-IR score listed above has not been cleared by the [place] Food andDrug Administration. PATIENT WAS FASTINGP ERFORMED BY: [employer] [id number] BY: [employer] [id number] [facility] [id number] Clinical Notes 06-27-2024 Note Date & Type Note Facility 06-27-2024 Evaluation note Diagnosis Onset Date Resolution URI (upper respiratory infection) acute June 27 024 1:42pm Encounter for routine gynecological examination noneactive September 08 025 8:02am [facility] Work Phone: Evaluation + Plan note No data available for this section [facility] Evaluation noteNo assessment information available [facility] Work Phone: Evaluation note* Diagnosis Onset Date Resolution Status Encounter for routine gynecological examination noneactive [facility] Work Phone: Hospital Discharge instructions No data available for this section [facility] Instructions* Name Dates Details How to Access Health Informa tion Online using Patient Portal and [employer] Apps Indication:Non-smoker Start:19-Jan-2021 Instruction Type:Patient Education Patient Instructions Indication:Non-smoker Start:19-Jan-2021 Instruction Type:Provider Instructions for Treatment Patient Instructions Indication:Hypertension, benign Start:23-Jun-2020 Instruction Type:Provider Instructions for Treatment How to Access Health Informa tion Online using Patient Portal and [employer] Apps Indication:Hypertension, benign Start:23-Jun-2020 Instruction Type:Patient Education How to access health informa tion online Indication:Non-smoker Start:17-Dec-2019 Instruction Type:Patient Education How to access health informa tion online - Detail Indication:Non-smoker Start:17-Dec-2019 Instruction Type:Patient Education Patient Instructions Indication:Non-smoker Start:17-Dec-2019 Instruction Type:Provider Instructions for Treatment How to access health informa tion online Indication:BMI 26.0-26.9,adult Start:15-Jan-2019 Instruction Type:Patient Education How to access health informa tion online - Detail Indication:BMI 26.0-26.9,adult Start:15-Jan-2019 Instruction Type:Patient Education Patient Instructions Indication:BMI 26.0-26.9,adult Start:15-Jan-2019 Instruction Type:Provider Instructions for Treatment How to access health informa tion online Indication:BMI 22.0-22.9, adult Start:29-May-2018 Instruction Type:Patient Education How to access health informa tion online - Detail Indication:BMI 22.0-22.9, adult Start:29-May-2018 Instruction Type:Patient Education Patient Instructions Indication:BMI 22.0-22.9, adult Start:29-May-2018 Instruction Type:Provider Instructions for Treatment How to access health informa tion online Indication:BMI 21.0-21.9, adult Start:19-Dec-2017 Instruction Type:Patient Education How to access health informa tion online - Detail Indication:BMI 21.0-21.9, adult Start:19-Dec-2017 Instruction Type:Patient Education Patient Instructions Indication:BMI 21.0-21.9, adult Start:19-Dec-2017 Instruction Type:Provider Instructions for Treatment How to access health informa tion online Indication:Non-smoker Start:09-May-2017 Instruction Type:Patient Education How to access health informa tion online - Detail Indication:Non-smoker Start:09-May-2017 Instruction Type:Patient Education Patient Instructions Indication:Non-smoker Start:09-May-2017 Instruction Type:Provider Instructions for Treatment Patient Instructions Indication:Non-smoker Start:09-May-2017 Instruction Type:Provider Instructions for Treatment How to access health informa tion online Indication:Body mass index (BMI) 23.0-23.9, adult Start:04-Nov-2016 Instruction Type:Patient Education How to access health informa tion online - Detail Indication:Body mass index (BMI) 23.0-23.9, adult Start:04-Nov-2016 Instruction Type:Patient Education Patient Instructions Indication:Body mass index (BMI) 23.0-23.9, adult Start:04-Nov-2016 Instruction Type:Provider Instructions for Treatment How to access health informa tion online Indication:Non-smoker Start:31-May-2016 Instruction Type:Patient Education How to access health informa tion online - Detail Indication:Non-smoker Start:31-May-2016 Instruction Type:Patient Education Patient Instructions Indication:Non-smoker Start:31-May-2016 Instruction Type:Provider Instructions for Treatment How to access health informa tion online Indication:Hyperlipidemia, unspecified Start:01-Dec-2015 Instruction Type:Patient Education How to access health informa tion online - Detail Indication:Hyperlipidemia, unspecified Start:01-Dec-2015 Instruction Type:Patient Education Patient Instructions Indication:Hyperlipidemia, unspecified Start:01-Dec-2015 Instruction Type:Provider Instructions for Treatment How to access health informa tion online Indication:Hypertension, benign Start:02-Jun-2015 Instruction Type:Patient Education How to access health informa tion online - Detail Indication:Hypertension, benign Start:02-Jun-2015 Instruction Type:Patient Education Patient Instructions Indication:Hypertension, benign Start:02-Jun-2015 Instruction Type:Provider Instructions for Treatment Patient Instructions Indication:Hyperlipidemia, unspecified Start:06-Oct-2013 Instruction Type:Provider Instructions for Treatment Patient Instructions Indication:FAMILY HISTORY OF ISCHEMIC HEART DISEASE Start:29-May-2012 Instruction Type:Provider Instructions for Treatment Patient Instructions Indication:Palpitations Start:22-May-2012 Instruction Type:Provider Instructions for Treatment [facility]; [facility] Work Phone: Instructions* Name Dates Details How to Access Health Informa tion Online using Patient Portal and [employer] Indication:Non-smoker Start:19-Jan-2021 Instruction Type:Patient Education Patient Instructions Indication:Non-smoker Start:19-Jan-2021 Instruction Type:Provider Instructions for Treatment Patient Instructions Indication:Hypertension, benign Start:23-Jun-2020 Instruction Type:Provider Instructions for Treatment How to Access Health Informa tion Online using Patient Portal and [employer] Apps Indication:Hypertension, benign Start:23-Jun-2020 Instruction Type:Patient Education How to access health informa tion online Indication:Non-smoker Start:17-Dec-2019 Instruction Type:Patient Education How to access health informa tion online - Detail Indication:Non-smoker Start:17-Dec-2019 Instruction Type:Patient Education Patient Instructions Indication:Non-smoker Start:17-Dec-2019 Instruction Type:Provider Instructions for Treatment How to access health informa tion online Indication:BMI 26.0-26.9,adult Start:15-Jan-2019 Instruction Type:Patient Education How to access health informa tion online - Detail Indication:BMI 26.0-26.9,adult Start:15-Jan-2019 Instruction Type:Patient Education Patient Instructions Indication:BMI 26.0-26.9,adult Start:15-Jan-2019 Instruction Type:Provider Instructions for Treatment How to access health informa tion online Indication:BMI 22.0-22.9, adult Start:29-May-2018 Instruction Type:Patient Education How to access health informa tion online - Detail Indication:BMI 22.0-22.9, adult Start:29-May-2018 Instruction Type:Patient Education Patient Instructions Indication:BMI 22.0-22.9, adult Start:29-May-2018 Instruction Type:Provider Instructions for Treatment How to access health informa tion online Indication:BMI 21.0-21.9, adult Start:19-Dec-2017 Instruction Type:Patient Education How to access health informa tion online - Detail Indication:BMI 21.0-21.9, adult Start:19-Dec-2017 Instruction Type:Patient Education Patient Instructions Indication:BMI 21.0-21.9, adult Start:19-Dec-2017 Instruction Type:Provider Instructions for Treatment How to access health informa tion online Indication:Non-smoker Start:09-May-2017 Instruction Type:Patient Education How to access health informa tion online - Detail Indication:Non-smoker Start:09-May-2017 Instruction Type:Patient Education Patient Instructions Indication:Non-smoker Start:09-May-2017 Instruction Type:Provider Instructions for Treatment Patient Instructions Indication:Non-smoker Start:09-May-2017 Instruction Type:Provider Instructions for Treatment How to access health informa tion online Indication:Body mass index (BMI) 23.0-23.9, adult Start:04-Nov-2016 Instruction Type:Patient Education How to access health informa tion online - Detail Indication:Body mass index (BMI) 23.0-23.9, adult Start:04-Nov-2016 Instruction Type:Patient Education Patient Instructions Indication:Body mass index (BMI) 23.0-23.9, adult Start:04-Nov-2016 Instruction Type:Provider Instructions for Treatment How to access health informa tion online Indication:Non-smoker Start:31-May-2016 Instruction Type:Patient Education How to access health informa tion online - Detail Indication:Non-smoker Start:31-May-2016 Instruction Type:Patient Education Patient Instructions Indication:Non-smoker Start:31-May-2016 Instruction Type:Provider Instructions for Treatment How to access health informa tion online Indication:Hyperlipidemia, unspecified Start:01-Dec-2015 Instruction Type:Patient Education How to access health informa tion online - Detail Indication:Hyperlipidemia, unspecified Start:01-Dec-2015 Instruction Type:Patient Education Patient Instructions Indication:Hyperlipidemia, unspecified Start:01-Dec-2015 Instruction Type:Provider Instructions for Treatment How to access health informa tion online Indication:Hypertension, benign Start:02-Jun-2015 Instruction Type:Patient Education How to access health informa tion online - Detail Indication:Hypertension, benign Start:02-Jun-2015 Instruction Type:Patient Education Patient Instructions Indication:Hypertension, benign Start:02-Jun-2015 Instruction Type:Provider Instructions for Treatment Patient Instructions Indication:Hyperlipidemia, unspecified Start:06-Oct-2013 Instruction Type:Provider Instructions for Treatment Patient Instructions Indication:FAMILY HISTORY OF ISCHEMIC HEART DISEASE Start:29-May-2012 Instruction Type:Provider Instructions for Treatment Patient Instructions Indication:Palpitations Start:22-May-2012 Instruction Type:Provider Instructions for Treatment [facility] Work Phone: Instructions* Name Dates Details How to Access Health Informa tion Online using Patient Portal and [employer] Apps Indication:Non-smoker Start:19-Jan-2021 Instruction Type:Patient Education Patient Instructions Indication:Non-smoker Start:19-Jan-2021 Instruction Type:Provider Instructions for Treatment Patient Instructions Indication:Hypertension, benign Start:23-Jun-2020 Instruction Type:Provider Instructions for Treatment How to Access Health Informa tion Online using Patient Portal and [employer] Apps Indication:Hypertension, benign Start:23-Jun-2020 Instruction Type:Patient Education How to access health informa tion online Indication:Non-smoker Start:17-Dec-2019 Instruction Type:Patient Education How to access health informa tion online - Detail Indication:Non-smoker Start:17-Dec-2019 Instruction Type:Patient Education Patient Instructions Indication:Non-smoker Start:17-Dec-2019 Instruction Type:Provider Instructions for Treatment How to access health informa tion online Indication:BMI 26.0-26.9,adult Start:15-Jan-2019 Instruction Type:Patient Education How to access health informa tion online - Detail Indication:BMI 26.0-26.9,adult Start:15-Jan-2019 Instruction Type:Patient Education Patient Instructions Indication:BMI 26.0-26.9,adult Start:15-Jan-2019 Instruction Type:Provider Instructions for Treatment How to access health informa tion online Indication:BMI 22.0-22.9, adult Start:29-May-2018 Instruction Type:Patient Education How to access health informa tion online - Detail Indication:BMI 22.0-22.9, adult Start:29-May-2018 Instruction Type:Patient Education Patient Instructions Indication:BMI 22.0-22.9, adult Start:29-May-2018 Instruction Type:Provider Instructions for Treatment How to access health informa tion online Indication:BMI 21.0-21.9, adult Start:19-Dec-2017 Instruction Type:Patient Education How to access health informa tion online - Detail Indication:BMI 21.0-21.9, adult Start:19-Dec-2017 Instruction Type:Patient Education Patient Instructions Indication:BMI 21.0-21.9, adult Start:19-Dec-2017 Instruction Type:Provider Instructions for Treatment How to access health informa tion online Indication:Non-smoker Start:09-May-2017 Instruction Type:Patient Education How to access health informa tion online - Detail Indication:Non-smoker Start:09-May-2017 Instruction Type:Patient Education Patient Instructions Indication:Non-smoker Start:09-May-2017 Instruction Type:Provider Instructions for Treatment Patient Instructions Indication:Non-smoker Start:09-May-2017 Instruction Type:Provider Instructions for Treatment How to access health informa tion online Indication:Body mass index (BMI) 23.0-23.9, adult Start:04-Nov-2016 Instruction Type:Patient Education How to access health informa tion online - Detail Indication:Body mass index (BMI) 23.0-23.9, adult Start:04-Nov-2016 Instruction Type:Patient Education Patient Instructions Indication:Body mass index (BMI) 23.0-23.9, adult Start:04-Nov-2016 Instruction Type:Provider Instructions for Treatment How to access health informa tion online Indication:Non-smoker Start:31-May-2016 Instruction Type:Patient Education How to access health informa tion online - Detail Indication:Non-smoker Start:31-May-2016 Instruction Type:Patient Education Patient Instructions Indication:Non-smoker Start:31-May-2016 Instruction Type:Provider Instructions for Treatment How to access health informa tion online Indication:Hyperlipidemia, unspecified Start:01-Dec-2015 Instruction Type:Patient Education How to access health informa tion online - Detail Indication:Hyperlipidemia, unspecified Start:01-Dec-2015 Instruction Type:Patient Education Patient Instructions Indication:Hyperlipidemia, unspecified Start:01-Dec-2015 Instruction Type:Provider Instructions for Treatment How to access health informa tion online Indication:Hypertension, benign Start:02-Jun-2015 Instruction Type:Patient Education How to access health informa tion online - Detail Indication:Hypertension, benign Start:02-Jun-2015 Instruction Type:Patient Education Patient Instructions Indication:Hypertension, benign Start:02-Jun-2015 Instruction Type:Provider Instructions for Treatment Patient Instructions Indication:Hyperlipidemia, unspecified Start:06-Oct-2013 Instruction Type:Provider Instructions for Treatment Patient Instructions Indication:FAMILY HISTORY OF ISCHEMIC HEART DISEASE Start:29-May-2012 Instruction Type:Provider Instructions for Treatment Patient Instructions Indication:Palpitations Start:22-May-2012 Instruction Type:Provider Instructions for Treatment [facility] Work Phone: Instructions* Name Dates Details How to Access Health Informa tion Online using Patient Portal and [employer] Apps Indication:Non-smoker Start:19-Jan-2021 Instruction Type:Patient Education Patient Instructions Indication:Non-smoker Start:19-Jan-2021 Instruction Type:Provider Instructions for Treatment Patient Instructions Indication:Hypertension, benign Start:23-Jun-2020 Instruction Type:Provider Instructions for Treatment How to Access Health Informa tion Online using Patient Portal and [employer] Apps Indication:Hypertension, benign Start:23-Jun-2020 Instruction Type:Patient Education How to access health informa tion online Indication:Non-smoker Start:17-Dec-2019 Instruction Type:Patient Education How to access health informa tion online - Detail Indication:Non-smoker Start:17-Dec-2019 Instruction Type:Patient Education Patient Instructions Indication:Non-smoker Start:17-Dec-2019 Instruction Type:Provider Instructions for Treatment How to access health informa tion online Indication:BMI 26.0-26.9,adult Start:15-Jan-2019 Instruction Type:Patient Education How to access health informa tion online - Detail Indication:BMI 26.0-26.9,adult Start:15-Jan-2019 Instruction Type:Patient Education Patient Instructions Indication:BMI 26.0-26.9,adult Start:15-Jan-2019 Instruction Type:Provider Instructions for Treatment How to access health informa tion online Indication:BMI 22.0-22.9, adult Start:29-May-2018 Instruction Type:Patient Education How to access health informa tion online - Detail Indication:BMI 22.0-22.9, adult Start:29-May-2018 Instruction Type:Patient Education Patient Instructions Indication:BMI 22.0-22.9, adult Start:29-May-2018 Instruction Type:Provider Instructions for Treatment How to access health informa tion online Indication:BMI 21.0-21.9, adult Start:19-Dec-2017 Instruction Type:Patient Education How to access health informa tion online - Detail Indication:BMI 21.0-21.9, adult Start:19-Dec-2017 Instruction Type:Patient Education Patient Instructions Indication:BMI 21.0-21.9, adult Start:19-Dec-2017 Instruction Type:Provider Instructions for Treatment How to access health informa tion online Indication:Non-smoker Start:09-May-2017 Instruction Type:Patient Education How to access health informa tion online - Detail Indication:Non-smoker Start:09-May-2017 Instruction Type:Patient Education Patient Instructions Indication:Non-smoker Start:09-May-2017 Instruction Type:Provider Instructions for Treatment Patient Instructions Indication:Non-smoker Start:09-May-2017 Instruction Type:Provider Instructions for Treatment How to access health informa tion online Indication:Body mass index (BMI) 23.0-23.9, adult Start:04-Nov-2016 Instruction Type:Patient Education How to access health informa tion online - Detail Indication:Body mass index (BMI) 23.0-23.9, adult Start:04-Nov-2016 Instruction Type:Patient Education Patient Instructions Indication:Body mass index (BMI) 23.0-23.9, adult Start:04-Nov-2016 Instruction Type:Provider Instructions for Treatment How to access health informa tion online Indication:Non-smoker Start:31-May-2016 Instruction Type:Patient Education How to access health informa tion online - Detail Indication:Non-smoker Start:31-May-2016 Instruction Type:Patient Education Patient Instructions Indication:Non-smoker Start:31-May-2016 Instruction Type:Provider Instructions for Treatment How to access health informa tion online Indication:Hyperlipidemia, unspecified Start:01-Dec-2015 Instruction Type:Patient Education How to access health informa tion online - Detail Indication:Hyperlipidemia, unspecified Start:01-Dec-2015 Instruction Type:Patient Education Patient Instructions Indication:Hyperlipidemia, unspecified Start:01-Dec-2015 Instruction Type:Provider Instructions for Treatment How to access health informa tion online Indication:Hypertension, benign Start:02-Jun-2015 Instruction Type:Patient Education How to access health informa tion online - Detail Indication:Hypertension, benign Start:02-Jun-2015 Instruction Type:Patient Education Patient Instructions Indication:Hypertension, benign Start:02-Jun-2015 Instruction Type:Provider Instructions for Treatment Patient Instructions Indication:Hyperlipidemia, unspecified Start:06-Oct-2013 Instruction Type:Provider Instructions for Treatment Patient Instructions Indication:FAMILY HISTORY OF ISCHEMIC HEART DISEASE Start:29-May-2012 Instruction Type:Provider Instructions for Treatment Patient Instructions Indication:Palpitations Start:22-May-2012 Instruction Type:Provider Instructions for Treatment [facility]; [facility] Work Phone: Instructions* Name Dates Details Patient Instructions Indication:BMI 28.0-28.9,adult Start:26-Jul-2021 Instruction Type:Provider Instructions for Treatment How to Access Health Informa tion Online using Patient Portal and [employer] Apps Indication:BMI 28.0-28.9,adult Start:26-Jul-2021 Instruction Type:Patient Education How to Access Health Informa tion Online using Patient Portal and [employer] Apps Indication:Non-smoker Start:19-Jan-2021 Instruction Type:Patient Education Patient Instructions Indication:Non-smoker Start:19-Jan-2021 Instruction Type:Provider Instructions for Treatment Patient Instructions Indication:Hypertension, benign Start:23-Jun-2020 Instruction Type:Provider Instructions for Treatment How to Access Health Informa tion Online using Patient Portal and [employer] Apps Indication:Hypertension, benign Start:23-Jun-2020 Instruction Type:Patient Education How to access health informa tion online Indication:Non-smoker Start:17-Dec-2019 Instruction Type:Patient Education How to access health informa tion online - Detail Indication:Non-smoker Start:17-Dec-2019 Instruction Type:Patient Education Patient Instructions Indication:Non-smoker Start:17-Dec-2019 Instruction Type:Provider Instructions for Treatment How to access health informa tion online Indication:BMI 26.0-26.9,adult Start:15-Jan-2019 Instruction Type:Patient Education How to access health informa tion online - Detail Indication:BMI 26.0-26.9,adult Start:15-Jan-2019 Instruction Type:Patient Education Patient Instructions Indication:BMI 26.0-26.9,adult Start:15-Jan-2019 Instruction Type:Provider Instructions for Treatment How to access health informa tion online Indication:BMI 22.0-22.9, adult Start:29-May-2018 Instruction Type:Patient Education How to access health informa tion online - Detail Indication:BMI 22.0-22.9, adult Start:29-May-2018 Instruction Type:Patient Education Patient Instructions Indication:BMI 22.0-22.9, adult Start:29-May-2018 Instruction Type:Provider Instructions for Treatment How to access health informa tion online Indication:BMI 21.0-21.9, adult Start:19-Dec-2017 Instruction Type:Patient Education How to access health informa tion online - Detail Indication:BMI 21.0-21.9, adult Start:19-Dec-2017 Instruction Type:Patient Education Patient Instructions Indication:BMI 21.0-21.9, adult Start:19-Dec-2017 Instruction Type:Provider Instructions for Treatment How to access health informa tion online Indication:Non-smoker Start:09-May-2017 Instruction Type:Patient Education How to access health informa tion online - Detail Indication:Non-smoker Start:09-May-2017 Instruction Type:Patient Education Patient Instructions Indication:Non-smoker Start:09-May-2017 Instruction Type:Provider Instructions for Treatment Patient Instructions Indication:Non-smoker Start:09-May-2017 Instruction Type:Provider Instructions for Treatment How to access health informa tion online Indication:Body mass index (BMI) 23.0-23.9, adult Start:04-Nov-2016 Instruction Type:Patient Education How to access health informa tion online - Detail Indication:Body mass index (BMI) 23.0-23.9, adult Start:04-Nov-2016 Instruction Type:Patient Education Patient Instructions Indication:Body mass index (BMI) 23.0-23.9, adult Start:04-Nov-2016 Instruction Type:Provider Instructions for Treatment How to access health informa tion online Indication:Non-smoker Start:31-May-2016 Instruction Type:Patient Education How to access health informa tion online - Detail Indication:Non-smoker Start:31-May-2016 Instruction Type:Patient Education Patient Instructions Indication:Non-smoker Start:31-May-2016 Instruction Type:Provider Instructions for Treatment How to access health informa tion online Indication:Hyperlipidemia, unspecified Start:01-Dec-2015 Instruction Type:Patient Education How to access health informa tion online - Detail Indication:Hyperlipidemia, unspecified Start:01-Dec-2015 Instruction Type:Patient Education Patient Instructions Indication:Hyperlipidemia, unspecified Start:01-Dec-2015 Instruction Type:Provider Instructions for Treatment How to access health informa tion online Indication:Hypertension, benign Start:02-Jun-2015 Instruction Type:Patient Education How to access health informa tion online - Detail Indication:Hypertension, benign Start:02-Jun-2015 Instruction Type:Patient Education Patient Instructions Indication:Hypertension, benign Start:02-Jun-2015 Instruction Type:Provider Instructions for Treatment Patient Instructions Indication:Hyperlipidemia, unspecified Start:06-Oct-2013 Instruction Type:Provider Instructions for Treatment Patient Instructions Indication:FAMILY HISTORY OF ISCHEMIC HEART DISEASE Start:29-May-2012 Instruction Type:Provider Instructions for Treatment Patient Instructions Indication:Palpitations Start:22-May-2012 Instruction Type:Provider Instructions for Treatment [facility]; [facility] Work Phone: Instructions* Name Dates Details Patient Instructions Indication:BMI 28.0-28.9,adult Start:26-Jul-2021 Instruction Type:Provider Instructions for Treatment How to Access Health Informa tion Online using Patient Portal and [employer] Apps Indication:BMI 28.0-28.9,adult Start:26-Jul-2021 Instruction Type:Patient Education How to Access Health Informa tion Online using Patient Portal and [employer] Apps Indication:Non-smoker Start:19-Jan-2021 Instruction Type:Patient Education Patient Instructions Indication:Non-smoker Start:19-Jan-2021 Instruction Type:Provider Instructions for Treatment Patient Instructions Indication:Hypertension, benign Start:23-Jun-2020 Instruction Type:Provider Instructions for Treatment How to Access Health Informa tion Online using Patient Portal and [employer] Apps Indication:Hypertension, benign Start:23-Jun-2020 Instruction Type:Patient Education How to access health informa tion online Indication:Non-smoker Start:17-Dec-2019 Instruction Type:Patient Education How to access health informa tion online - Detail Indication:Non-smoker Start:17-Dec-2019 Instruction Type:Patient Education Patient Instructions Indication:Non-smoker Start:17-Dec-2019 Instruction Type:Provider Instructions for Treatment How to access health informa tion online Indication:BMI 26.0-26.9,adult Start:15-Jan-2019 Instruction Type:Patient Education How to access health informa tion online - Detail Indication:BMI 26.0-26.9,adult Start:15-Jan-2019 Instruction Type:Patient Education Patient Instructions Indication:BMI 26.0-26.9,adult Start:15-Jan-2019 Instruction Type:Provider Instructions for Treatment How to access health informa tion online Indication:BMI 22.0-22.9, adult Start:29-May-2018 Instruction Type:Patient Education How to access health informa tion online - Detail Indication:BMI 22.0-22.9, adult Start:29-May-2018 Instruction Type:Patient Education Patient Instructions Indication:BMI 22.0-22.9, adult Start:29-May-2018 Instruction Type:Provider Instructions for Treatment How to access health informa tion online Indication:BMI 21.0-21.9, adult Start:19-Dec-2017 Instruction Type:Patient Education How to access health informa tion online - Detail Indication:BMI 21.0-21.9, adult Start:19-Dec-2017 Instruction Type:Patient Education Patient Instructions Indication:BMI 21.0-21.9, adult Start:19-Dec-2017 Instruction Type:Provider Instructions for Treatment How to access health informa tion online Indication:Non-smoker Start:09-May-2017 Instruction Type:Patient Education How to access health informa tion online - Detail Indication:Non-smoker Start:09-May-2017 Instruction Type:Patient Education Patient Instructions Indication:Non-smoker Start:09-May-2017 Instruction Type:Provider Instructions for Treatment Patient Instructions Indication:Non-smoker Start:09-May-2017 Instruction Type:Provider Instructions for Treatment How to access health informa tion online Indication:Body mass index (BMI) 23.0-23.9, adult Start:04-Nov-2016 Instruction Type:Patient Education How to access health informa tion online - Detail Indication:Body mass index (BMI) 23.0-23.9, adult Start:04-Nov-2016 Instruction Type:Patient Education Patient Instructions Indication:Body mass index (BMI) 23.0-23.9, adult Start:04-Nov-2016 Instruction Type:Provider Instructions for Treatment How to access health informa tion online Indication:Non-smoker Start:31-May-2016 Instruction Type:Patient Education How to access health informa tion online - Detail Indication:Non-smoker Start:31-May-2016 Instruction Type:Patient Education Patient Instructions Indication:Non-smoker Start:31-May-2016 Instruction Type:Provider Instructions for Treatment How to access health informa tion online Indication:Hyperlipidemia, unspecified Start:01-Dec-2015 Instruction Type:Patient Education How to access health informa tion online - Detail Indication:Hyperlipidemia, unspecified Start:01-Dec-2015 Instruction Type:Patient Education Patient Instructions Indication:Hyperlipidemia, unspecified Start:01-Dec-2015 Instruction Type:Provider Instructions for Treatment How to access health informa tion online Indication:Hypertension, benign Start:02-Jun-2015 Instruction Type:Patient Education How to access health informa tion online - Detail Indication:Hypertension, benign Start:02-Jun-2015 Instruction Type:Patient Education Patient Instructions Indication:Hypertension, benign Start:02-Jun-2015 Instruction Type:Provider Instructions for Treatment Patient Instructions Indication:Hyperlipidemia, unspecified Start:06-Oct-2013 Instruction Type:Provider Instructions for Treatment Patient Instructions Indication:FAMILY HISTORY OF ISCHEMIC HEART DISEASE Start:29-May-2012 Instruction Type:Provider Instructions for Treatment Patient Instructions Indication:Palpitations Start:22-May-2012 Instruction Type:Provider Instructions for Treatment [facility]; [facility] Work Phone: Instructions* Name Dates Details Patient Instructions Indication:BMI 28.0-28.9,adult Start:17-Jan-2022 Instruction Type:Provider Instructions for Treatment How to Access Health Informa tion Online using Patient Portal and [employer] Apps Indication:BMI 28.0-28.9,adult Start:17-Jan-2022 Instruction Type:Patient Education Patient Instructions Indication:BMI 28.0-28.9,adult Start:26-Jul-2021 Instruction Type:Provider Instructions for Treatment How to Access Health Informa tion Online using Patient Portal and [employer] Apps Indication:BMI 28.0-28.9,adult Start:26-Jul-2021 Instruction Type:Patient Education How to Access Health Informa tion Online using Patient Portal and [employer] Apps Indication:Non-smoker Start:19-Jan-2021 Instruction Type:Patient Education Patient Instructions Indication:Non-smoker Start:19-Jan-2021 Instruction Type:Provider Instructions for Treatment Patient Instructions Indication:Hypertension, benign Start:23-Jun-2020 Instruction Type:Provider Instructions for Treatment How to Access Health Informa tion Online using Patient Portal and [employer] Apps Indication:Hypertension, benign Start:23-Jun-2020 Instruction Type:Patient Education How to access health informa tion online Indication:Non-smoker Start:17-Dec-2019 Instruction Type:Patient Education How to access health informa tion online - Detail Indication:Non-smoker Start:17-Dec-2019 Instruction Type:Patient Education Patient Instructions Indication:Non-smoker Start:17-Dec-2019 Instruction Type:Provider Instructions for Treatment How to access health informa tion online Indication:BMI 26.0-26.9,adult Start:15-Jan-2019 Instruction Type:Patient Education How to access health informa tion online - Detail Indication:BMI 26.0-26.9,adult Start:15-Jan-2019 Instruction Type:Patient Education Patient Instructions Indication:BMI 26.0-26.9,adult Start:15-Jan-2019 Instruction Type:Provider Instructions for Treatment How to access health informa tion online Indication:BMI 22.0-22.9, adult Start:29-May-2018 Instruction Type:Patient Education How to access health informa tion online - Detail Indication:BMI 22.0-22.9, adult Start:29-May-2018 Instruction Type:Patient Education Patient Instructions Indication:BMI 22.0-22.9, adult Start:29-May-2018 Instruction Type:Provider Instructions for Treatment How to access health informa tion online Indication:BMI 21.0-21.9, adult Start:19-Dec-2017 Instruction Type:Patient Education How to access health informa tion online - Detail Indication:BMI 21.0-21.9, adult Start:19-Dec-2017 Instruction Type:Patient Education Patient Instructions Indication:BMI 21.0-21.9, adult Start:19-Dec-2017 Instruction Type:Provider Instructions for Treatment How to access health informa tion online Indication:Non-smoker Start:09-May-2017 Instruction Type:Patient Education How to access health informa tion online - Detail Indication:Non-smoker Start:09-May-2017 Instruction Type:Patient Education Patient Instructions Indication:Non-smoker Start:09-May-2017 Instruction Type:Provider Instructions for Treatment Patient Instructions Indication:Non-smoker Start:09-May-2017 Instruction Type:Provider Instructions for Treatment How to access health informa tion online Indication:Body mass index (BMI) 23.0-23.9, adult Start:04-Nov-2016 Instruction Type:Patient Education How to access health informa tion online - Detail Indication:Body mass index (BMI) 23.0-23.9, adult Start:04-Nov-2016 Instruction Type:Patient Education Patient Instructions Indication:Body mass index (BMI) 23.0-23.9, adult Start:04-Nov-2016 Instruction Type:Provider Instructions for Treatment How to access health informa tion online Indication:Non-smoker Start:31-May-2016 Instruction Type:Patient Education How to access health informa tion online - Detail Indication:Non-smoker Start:31-May-2016 Instruction Type:Patient Education Patient Instructions Indication:Non-smoker Start:31-May-2016 Instruction Type:Provider Instructions for Treatment How to access health informa tion online Indication:Hyperlipidemia, unspecified Start:01-Dec-2015 Instruction Type:Patient Education How to access health informa tion online - Detail Indication:Hyperlipidemia, unspecified Start:01-Dec-2015 Instruction Type:Patient Education Patient Instructions Indication:Hyperlipidemia, unspecified Start:01-Dec-2015 Instruction Type:Provider Instructions for Treatment How to access health informa tion online Indication:Hypertension, benign Start:02-Jun-2015 Instruction Type:Patient Education How to access health informa tion online - Detail Indication:Hypertension, benign Start:02-Jun-2015 Instruction Type:Patient Education Patient Instructions Indication:Hypertension, benign Start:02-Jun-2015 Instruction Type:Provider Instructions for Treatment Patient Instructions Indication:Hyperlipidemia, unspecified Start:06-Oct-2013 Instruction Type:Provider Instructions for Treatment Patient Instructions Indication:FAMILY HISTORY OF ISCHEMIC HEART DISEASE Start:29-May-2012 Instruction Type:Provider Instructions for Treatment Patient Instructions Indication:Palpitations Start:22-May-2012 Instruction Type:Provider Instructions for Treatment [facility] Work Phone: Instructions* Name Dates Details Patient Instructions Indication:BMI 28.0-28.9,adult Start:17-Jan-2022 Instruction Type:Provider Instructions for Treatment How to Access Health Informa tion Online using Patient Portal and [employer] Apps Indication:BMI 28.0-28.9,adult Start:17-Jan-2022 Instruction Type:Patient Education Patient Instructions Indication:BMI 28.0-28.9,adult Start:26-Jul-2021 Instruction Type:Provider Instructions for Treatment How to Access Health Informa tion Online using Patient Portal and [employer] Apps Indication:BMI 28.0-28.9,adult Start:26-Jul-2021 Instruction Type:Patient Education How to Access Health Informa tion Online using Patient Portal and [employer] Apps Indication:Non-smoker Start:19-Jan-2021 Instruction Type:Patient Education Patient Instructions Indication:Non-smoker Start:19-Jan-2021 Instruction Type:Provider Instructions for Treatment Patient Instructions Indication:Hypertension, benign Start:23-Jun-2020 Instruction Type:Provider Instructions for Treatment How to Access Health Informa tion Online using Patient Portal and [employer] Apps Indication:Hypertension, benign Start:23-Jun-2020 Instruction Type:Patient Education How to access health informa tion online Indication:Non-smoker Start:17-Dec-2019 Instruction Type:Patient Education How to access health informa tion online - Detail Indication:Non-smoker Start:17-Dec-2019 Instruction Type:Patient Education Patient Instructions Indication:Non-smoker Start:17-Dec-2019 Instruction Type:Provider Instructions for Treatment How to access health informa tion online Indication:BMI 26.0-26.9,adult Start:15-Jan-2019 Instruction Type:Patient Education How to access health informa tion online - Detail Indication:BMI 26.0-26.9,adult Start:15-Jan-2019 Instruction Type:Patient Education Patient Instructions Indication:BMI 26.0-26.9,adult Start:15-Jan-2019 Instruction Type:Provider Instructions for Treatment How to access health informa tion online Indication:BMI 22.0-22.9, adult Start:29-May-2018 Instruction Type:Patient Education How to access health informa tion online - Detail Indication:BMI 22.0-22.9, adult Start:29-May-2018 Instruction Type:Patient Education Patient Instructions Indication:BMI 22.0-22.9, adult Start:29-May-2018 Instruction Type:Provider Instructions for Treatment How to access health informa tion online Indication:BMI 21.0-21.9, adult Start:19-Dec-2017 Instruction Type:Patient Education How to access health informa tion online - Detail Indication:BMI 21.0-21.9, adult Start:19-Dec-2017 Instruction Type:Patient Education Patient Instructions Indication:BMI 21.0-21.9, adult Start:19-Dec-2017 Instruction Type:Provider Instructions for Treatment How to access health informa tion online Indication:Non-smoker Start:09-May-2017 Instruction Type:Patient Education How to access health informa tion online - Detail Indication:Non-smoker Start:09-May-2017 Instruction Type:Patient Education Patient Instructions Indication:Non-smoker Start:09-May-2017 Instruction Type:Provider Instructions for Treatment Patient Instructions Indication:Non-smoker Start:09-May-2017 Instruction Type:Provider Instructions for Treatment How to access health informa tion online Indication:Body mass index (BMI) 23.0-23.9, adult Start:04-Nov-2016 Instruction Type:Patient Education How to access health informa tion online - Detail Indication:Body mass index (BMI) 23.0-23.9, adult Start:04-Nov-2016 Instruction Type:Patient Education Patient Instructions Indication:Body mass index (BMI) 23.0-23.9, adult Start:04-Nov-2016 Instruction Type:Provider Instructions for Treatment How to access health informa tion online Indication:Non-smoker Start:31-May-2016 Instruction Type:Patient Education How to access health informa tion online - Detail Indication:Non-smoker Start:31-May-2016 Instruction Type:Patient Education Patient Instructions Indication:Non-smoker Start:31-May-2016 Instruction Type:Provider Instructions for Treatment How to access health informa tion online Indication:Hyperlipidemia, unspecified Start:01-Dec-2015 Instruction Type:Patient Education How to access health informa tion online - Detail Indication:Hyperlipidemia, unspecified Start:01-Dec-2015 Instruction Type:Patient Education Patient Instructions Indication:Hyperlipidemia, unspecified Start:01-Dec-2015 Instruction Type:Provider Instructions for Treatment How to access health informa tion online Indication:Hypertension, benign Start:02-Jun-2015 Instruction Type:Patient Education How to access health informa tion online - Detail Indication:Hypertension, benign Start:02-Jun-2015 Instruction Type:Patient Education Patient Instructions Indication:Hypertension, benign Start:02-Jun-2015 Instruction Type:Provider Instructions for Treatment Patient Instructions Indication:Hyperlipidemia, unspecified Start:06-Oct-2013 Instruction Type:Provider Instructions for Treatment Patient Instructions Indication:FAMILY HISTORY OF ISCHEMIC HEART DISEASE Start:29-May-2012 Instruction Type:Provider Instructions for Treatment Patient Instructions Indication:Palpitations Start:22-May-2012 Instruction Type:Provider Instructions for Treatment [facility] Work Phone: Instructions* Name Dates Details Patient Instructions Indication:BMI 28.0-28.9,adult Start:17-Jan-2022 Instruction Type:Provider Instructions for Treatment How to Access Health Informa tion Online using Patient Portal and [employer] Apps Indication:BMI 28.0-28.9,adult Start:17-Jan-2022 Instruction Type:Patient Education Patient Instructions Indication:BMI 28.0-28.9,adult Start:26-Jul-2021 Instruction Type:Provider Instructions for Treatment How to Access Health Informa tion Online using Patient Portal and [employer] Apps Indication:BMI 28.0-28.9,adult Start:26-Jul-2021 Instruction Type:Patient Education How to Access Health Informa tion Online using Patient Portal and [employer] Apps Indication:Non-smoker Start:19-Jan-2021 Instruction Type:Patient Education Patient Instructions Indication:Non-smoker Start:19-Jan-2021 Instruction Type:Provider Instructions for Treatment Patient Instructions Indication:Hypertension, benign Start:23-Jun-2020 Instruction Type:Provider Instructions for Treatment How to Access Health Informa tion Online using Patient Portal and [employer] Apps Indication:Hypertension, benign Start:23-Jun-2020 Instruction Type:Patient Education How to access health informa tion online Indication:Non-smoker Start:17-Dec-2019 Instruction Type:Patient Education How to access health informa tion online - Detail Indication:Non-smoker Start:17-Dec-2019 Instruction Type:Patient Education Patient Instructions Indication:Non-smoker Start:17-Dec-2019 Instruction Type:Provider Instructions for Treatment How to access health informa tion online Indication:BMI 26.0-26.9,adult Start:15-Jan-2019 Instruction Type:Patient Education How to access health informa tion online - Detail Indication:BMI 26.0-26.9,adult Start:15-Jan-2019 Instruction Type:Patient Education Patient Instructions Indication:BMI 26.0-26.9,adult Start:15-Jan-2019 Instruction Type:Provider Instructions for Treatment How to access health informa tion online Indication:BMI 22.0-22.9, adult Start:29-May-2018 Instruction Type:Patient Education How to access health informa tion online - Detail Indication:BMI 22.0-22.9, adult Start:29-May-2018 Instruction Type:Patient Education Patient Instructions Indication:BMI 22.0-22.9, adult Start:29-May-2018 Instruction Type:Provider Instructions for Treatment How to access health informa tion online Indication:BMI 21.0-21.9, adult Start:19-Dec-2017 Instruction Type:Patient Education How to access health informa tion online - Detail Indication:BMI 21.0-21.9, adult Start:19-Dec-2017 Instruction Type:Patient Education Patient Instructions Indication:BMI 21.0-21.9, adult Start:19-Dec-2017 Instruction Type:Provider Instructions for Treatment How to access health informa tion online Indication:Non-smoker Start:09-May-2017 Instruction Type:Patient Education How to access health informa tion online - Detail Indication:Non-smoker Start:09-May-2017 Instruction Type:Patient Education Patient Instructions Indication:Non-smoker Start:09-May-2017 Instruction Type:Provider Instructions for Treatment Patient Instructions Indication:Non-smoker Start:09-May-2017 Instruction Type:Provider Instructions for Treatment How to access health informa tion online Indication:Body mass index (BMI) 23.0-23.9, adult Start:04-Nov-2016 Instruction Type:Patient Education How to access health informa tion online - Detail Indication:Body mass index (BMI) 23.0-23.9, adult Start:04-Nov-2016 Instruction Type:Patient Education Patient Instructions Indication:Body mass index (BMI) 23.0-23.9, adult Start:04-Nov-2016 Instruction Type:Provider Instructions for Treatment How to access health informa tion online Indication:Non-smoker Start:31-May-2016 Instruction Type:Patient Education How to access health informa tion online - Detail Indication:Non-smoker Start:31-May-2016 Instruction Type:Patient Education Patient Instructions Indication:Non-smoker Start:31-May-2016 Instruction Type:Provider Instructions for Treatment How to access health informa tion online Indication:Hyperlipidemia, unspecified Start:01-Dec-2015 Instruction Type:Patient Education How to access health informa tion online - Detail Indication:Hyperlipidemia, unspecified Start:01-Dec-2015 Instruction Type:Patient Education Patient Instructions Indication:Hyperlipidemia, unspecified Start:01-Dec-2015 Instruction Type:Provider Instructions for Treatment How to access health informa tion online Indication:Hypertension, benign Start:02-Jun-2015 Instruction Type:Patient Education How to access health informa tion online - Detail Indication:Hypertension, benign Start:02-Jun-2015 Instruction Type:Patient Education Patient Instructions Indication:Hypertension, benign Start:02-Jun-2015 Instruction Type:Provider Instructions for Treatment Patient Instructions Indication:Hyperlipidemia, unspecified Start:06-Oct-2013 Instruction Type:Provider Instructions for Treatment Patient Instructions Indication:FAMILY HISTORY OF ISCHEMIC HEART DISEASE Start:29-May-2012 Instruction Type:Provider Instructions for Treatment Patient Instructions Indication:Palpitations Start:22-May-2012 Instruction Type:Provider Instructions for Treatment [facility]; [facility] Work Phone: Instructions* Name Dates Details Patient Instructions Indication:BMI 28.0-28.9,adult Start:17-Jan-2022 Instruction Type:Provider Instructions for Treatment How to Access Health Informa tion Online using Patient Portal and [employer] Apps Indication:BMI 28.0-28.9,adult Start:17-Jan-2022 Instruction Type:Patient Education Patient Instructions Indication:BMI 28.0-28.9,adult Start:26-Jul-2021 Instruction Type:Provider Instructions for Treatment How to Access Health Informa tion Online using Patient Portal and [employer] Apps Indication:BMI 28.0-28.9,adult Start:26-Jul-2021 Instruction Type:Patient Education How to Access Health Informa tion Online using Patient Portal and [employer] Apps Indication:Non-smoker Start:19-Jan-2021 Instruction Type:Patient Education Patient Instructions Indication:Non-smoker Start:19-Jan-2021 Instruction Type:Provider Instructions for Treatment Patient Instructions Indication:Hypertension, benign Start:23-Jun-2020 Instruction Type:Provider Instructions for Treatment How to Access Health Informa tion Online using Patient Portal and [employer] Apps Indication:Hypertension, benign Start:23-Jun-2020 Instruction Type:Patient Education How to access health informa tion online Indication:Non-smoker Start:17-Dec-2019 Instruction Type:Patient Education How to access health informa tion online - Detail Indication:Non-smoker Start:17-Dec-2019 Instruction Type:Patient Education Patient Instructions Indication:Non-smoker Start:17-Dec-2019 Instruction Type:Provider Instructions for Treatment How to access health informa tion online Indication:BMI 26.0-26.9,adult Start:15-Jan-2019 Instruction Type:Patient Education How to access health informa tion online - Detail Indication:BMI 26.0-26.9,adult Start:15-Jan-2019 Instruction Type:Patient Education Patient Instructions Indication:BMI 26.0-26.9,adult Start:15-Jan-2019 Instruction Type:Provider Instructions for Treatment How to access health informa tion online Indication:BMI 22.0-22.9, adult Start:29-May-2018 Instruction Type:Patient Education How to access health informa tion online - Detail Indication:BMI 22.0-22.9, adult Start:29-May-2018 Instruction Type:Patient Education Patient Instructions Indication:BMI 22.0-22.9, adult Start:29-May-2018 Instruction Type:Provider Instructions for Treatment How to access health informa tion online Indication:BMI 21.0-21.9, adult Start:19-Dec-2017 Instruction Type:Patient Education How to access health informa tion online - Detail Indication:BMI 21.0-21.9, adult Start:19-Dec-2017 Instruction Type:Patient Education Patient Instructions Indication:BMI 21.0-21.9, adult Start:19-Dec-2017 Instruction Type:Provider Instructions for Treatment How to access health informa tion online Indication:Non-smoker Start:09-May-2017 Instruction Type:Patient Education How to access health informa tion online - Detail Indication:Non-smoker Start:09-May-2017 Instruction Type:Patient Education Patient Instructions Indication:Non-smoker Start:09-May-2017 Instruction Type:Provider Instructions for Treatment Patient Instructions Indication:Non-smoker Start:09-May-2017 Instruction Type:Provider Instructions for Treatment How to access health informa tion online Indication:Body mass index (BMI) 23.0-23.9, adult Start:04-Nov-2016 Instruction Type:Patient Education How to access health informa tion online - Detail Indication:Body mass index (BMI) 23.0-23.9, adult Start:04-Nov-2016 Instruction Type:Patient Education Patient Instructions Indication:Body mass index (BMI) 23.0-23.9, adult Start:04-Nov-2016 Instruction Type:Provider Instructions for Treatment How to access health informa tion online Indication:Non-smoker Start:31-May-2016 Instruction Type:Patient Education How to access health informa tion online - Detail Indication:Non-smoker Start:31-May-2016 Instruction Type:Patient Education Patient Instructions Indication:Non-smoker Start:31-May-2016 Instruction Type:Provider Instructions for Treatment How to access health informa tion online Indication:Hyperlipidemia, unspecified Start:01-Dec-2015 Instruction Type:Patient Education How to access health informa tion online - Detail Indication:Hyperlipidemia, unspecified Start:01-Dec-2015 Instruction Type:Patient Education Patient Instructions Indication:Hyperlipidemia, unspecified Start:01-Dec-2015 Instruction Type:Provider Instructions for Treatment How to access health informa tion online Indication:Hypertension, benign Start:02-Jun-2015 Instruction Type:Patient Education How to access health informa tion online - Detail Indication:Hypertension, benign Start:02-Jun-2015 Instruction Type:Patient Education Patient Instructions Indication:Hypertension, benign Start:02-Jun-2015 Instruction Type:Provider Instructions for Treatment Patient Instructions Indication:Hyperlipidemia, unspecified Start:06-Oct-2013 Instruction Type:Provider Instructions for Treatment Patient Instructions Indication:FAMILY HISTORY OF ISCHEMIC HEART DISEASE Start:29-May-2012 Instruction Type:Provider Instructions for Treatment Patient Instructions Indication:Palpitations Start:22-May-2012 Instruction Type:Provider Instructions for Treatment [facility]; [facility] Work Phone: Instructions* Name Dates Details Patient Instructions Indication:Hyperlipidemia, unspecified Start:25-Oct-2022 Instruction Type:Provider Instructions for Treatment How to Access Health Informa tion Online using Patient Portal and [employer] Apps Indication:Hyperlipidemia, unspecified Start:25-Oct-2022 Instruction Type:Patient Education Patient Instructions Indication:BMI 28.0-28.9,adult Start:17-Jan-2022 Instruction Type:Provider Instructions for Treatment How to Access Health Informa tion Online using Patient Portal and [employer] Apps Indication:BMI 28.0-28.9,adult Start:17-Jan-2022 Instruction Type:Patient Education Patient Instructions Indication:BMI 28.0-28.9,adult Start:26-Jul-2021 Instruction Type:Provider Instructions for Treatment How to Access Health Informa tion Online using Patient Portal and [employer] Apps Indication:BMI 28.0-28.9,adult Start:26-Jul-2021 Instruction Type:Patient Education How to Access Health Informa tion Online using Patient Portal and [employer] Apps Indication:Non-smoker Start:19-Jan-2021 Instruction Type:Patient Education Patient Instructions Indication:Non-smoker Start:19-Jan-2021 Instruction Type:Provider Instructions for Treatment Patient Instructions Indication:Hypertension, benign Start:23-Jun-2020 Instruction Type:Provider Instructions for Treatment How to Access Health Informa tion Online using Patient Portal and [employer] Apps Indication:Hypertension, benign Start:23-Jun-2020 Instruction Type:Patient Education How to access health informa tion online Indication:Non-smoker Start:17-Dec-2019 Instruction Type:Patient Education How to access health informa tion online - Detail Indication:Non-smoker Start:17-Dec-2019 Instruction Type:Patient Education Patient Instructions Indication:Non-smoker Start:17-Dec-2019 Instruction Type:Provider Instructions for Treatment How to access health informa tion online Indication:BMI 26.0-26.9,adult Start:15-Jan-2019 Instruction Type:Patient Education How to access health informa tion online - Detail Indication:BMI 26.0-26.9,adult Start:15-Jan-2019 Instruction Type:Patient Education Patient Instructions Indication:BMI 26.0-26.9,adult Start:15-Jan-2019 Instruction Type:Provider Instructions for Treatment How to access health informa tion online Indication:BMI 22.0-22.9, adult Start:29-May-2018 Instruction Type:Patient Education How to access health informa tion online - Detail Indication:BMI 22.0-22.9, adult Start:29-May-2018 Instruction Type:Patient Education Patient Instructions Indication:BMI 22.0-22.9, adult Start:29-May-2018 Instruction Type:Provider Instructions for Treatment How to access health informa tion online Indication:BMI 21.0-21.9, adult Start:19-Dec-2017 Instruction Type:Patient Education How to access health informa tion online - Detail Indication:BMI 21.0-21.9, adult Start:19-Dec-2017 Instruction Type:Patient Education Patient Instructions Indication:BMI 21.0-21.9, adult Start:19-Dec-2017 Instruction Type:Provider Instructions for Treatment How to access health informa tion online Indication:Non-smoker Start:09-May-2017 Instruction Type:Patient Education How to access health informa tion online - Detail Indication:Non-smoker Start:09-May-2017 Instruction Type:Patient Education Patient Instructions Indication:Non-smoker Start:09-May-2017 Instruction Type:Provider Instructions for Treatment Patient Instructions Indication:Non-smoker Start:09-May-2017 Instruction Type:Provider Instructions for Treatment How to access health informa tion online Indication:Body mass index (BMI) 23.0-23.9, adult Start:04-Nov-2016 Instruction Type:Patient Education How to access health informa tion online - Detail Indication:Body mass index (BMI) 23.0-23.9, adult Start:04-Nov-2016 Instruction Type:Patient Education Patient Instructions Indication:Body mass index (BMI) 23.0-23.9, adult Start:04-Nov-2016 Instruction Type:Provider Instructions for Treatment How to access health informa tion online Indication:Non-smoker Start:31-May-2016 Instruction Type:Patient Education How to access health informa tion online - Detail Indication:Non-smoker Start:31-May-2016 Instruction Type:Patient Education Patient Instructions Indication:Non-smoker Start:31-May-2016 Instruction Type:Provider Instructions for Treatment How to access health informa tion online Indication:Hyperlipidemia, unspecified Start:01-Dec-2015 Instruction Type:Patient Education How to access health informa tion online - Detail Indication:Hyperlipidemia, unspecified Start:01-Dec-2015 Instruction Type:Patient Education Patient Instructions Indication:Hyperlipidemia, unspecified Start:01-Dec-2015 Instruction Type:Provider Instructions for Treatment How to access health informa tion online Indication:Hypertension, benign Start:02-Jun-2015 Instruction Type:Patient Education How to access health informa tion online - Detail Indication:Hypertension, benign Start:02-Jun-2015 Instruction Type:Patient Education Patient Instructions Indication:Hypertension, benign Start:02-Jun-2015 Instruction Type:Provider Instructions for Treatment Patient Instructions Indication:Hyperlipidemia, unspecified Start:06-Oct-2013 Instruction Type:Provider Instructions for Treatment Patient Instructions Indication:FAMILY HISTORY OF ISCHEMIC HEART DISEASE Start:29-May-2012 Instruction Type:Provider Instructions for Treatment Patient Instructions Indication:Palpitations Start:22-May-2012 Instruction Type:Provider Instructions for Treatment [facility]; [facility] Work Phone: Instructions* Name Dates Details Patient Instructions Indication:Hyperlipidemia, unspecified Start:25-Oct-2022 Instruction Type:Provider Instructions for Treatment How to Access Health Informa tion Online using Patient Portal and [employer] Apps Indication:Hyperlipidemia, unspecified Start:25-Oct-2022 Instruction Type:Patient Education Patient Instructions Indication:BMI 28.0-28.9,adult Start:17-Jan-2022 Instruction Type:Provider Instructions for Treatment How to Access Health Informa tion Online using Patient Portal and [employer] Apps Indication:BMI 28.0-28.9,adult Start:17-Jan-2022 Instruction Type:Patient Education Patient Instructions Indication:BMI 28.0-28.9,adult Start:26-Jul-2021 Instruction Type:Provider Instructions for Treatment How to Access Health Informa tion Online using Patient Portal and [employer] Apps Indication:BMI 28.0-28.9,adult Start:26-Jul-2021 Instruction Type:Patient Education How to Access Health Informa tion Online using Patient Portal and [employer] Apps Indication:Non-smoker Start:19-Jan-2021 Instruction Type:Patient Education Patient Instructions Indication:Non-smoker Start:19-Jan-2021 Instruction Type:Provider Instructions for Treatment Patient Instructions Indication:Hypertension, benign Start:23-Jun-2020 Instruction Type:Provider Instructions for Treatment How to Access Health Informa tion Online using Patient Portal and [employer] Apps Indication:Hypertension, benign Start:23-Jun-2020 Instruction Type:Patient Education How to access health informa tion online Indication:Non-smoker Start:17-Dec-2019 Instruction Type:Patient Education How to access health informa tion online - Detail Indication:Non-smoker Start:17-Dec-2019 Instruction Type:Patient Education Patient Instructions Indication:Non-smoker Start:17-Dec-2019 Instruction Type:Provider Instructions for Treatment How to access health informa tion online Indication:BMI 26.0-26.9,adult Start:15-Jan-2019 Instruction Type:Patient Education How to access health informa tion online - Detail Indication:BMI 26.0-26.9,adult Start:15-Jan-2019 Instruction Type:Patient Education Patient Instructions Indication:BMI 26.0-26.9,adult Start:15-Jan-2019 Instruction Type:Provider Instructions for Treatment How to access health informa tion online Indication:BMI 22.0-22.9, adult Start:29-May-2018 Instruction Type:Patient Education How to access health informa tion online - Detail Indication:BMI 22.0-22.9, adult Start:29-May-2018 Instruction Type:Patient Education Patient Instructions Indication:BMI 22.0-22.9, adult Start:29-May-2018 Instruction Type:Provider Instructions for Treatment How to access health informa tion online Indication:BMI 21.0-21.9, adult Start:19-Dec-2017 Instruction Type:Patient Education How to access health informa tion online - Detail Indication:BMI 21.0-21.9, adult Start:19-Dec-2017 Instruction Type:Patient Education Patient Instructions Indication:BMI 21.0-21.9, adult Start:19-Dec-2017 Instruction Type:Provider Instructions for Treatment How to access health informa tion online Indication:Non-smoker Start:09-May-2017 Instruction Type:Patient Education How to access health informa tion online - Detail Indication:Non-smoker Start:09-May-2017 Instruction Type:Patient Education Patient Instructions Indication:Non-smoker Start:09-May-2017 Instruction Type:Provider Instructions for Treatment Patient Instructions Indication:Non-smoker Start:09-May-2017 Instruction Type:Provider Instructions for Treatment How to access health informa tion online Indication:Body mass index (BMI) 23.0-23.9, adult Start:04-Nov-2016 Instruction Type:Patient Education How to access health informa tion online - Detail Indication:Body mass index (BMI) 23.0-23.9, adult Start:04-Nov-2016 Instruction Type:Patient Education Patient Instructions Indication:Body mass index (BMI) 23.0-23.9, adult Start:04-Nov-2016 Instruction Type:Provider Instructions for Treatment How to access health informa tion online Indication:Non-smoker Start:31-May-2016 Instruction Type:Patient Education How to access health informa tion online - Detail Indication:Non-smoker Start:31-May-2016 Instruction Type:Patient Education Patient Instructions Indication:Non-smoker Start:31-May-2016 Instruction Type:Provider Instructions for Treatment How to access health informa tion online Indication:Hyperlipidemia, unspecified Start:01-Dec-2015 Instruction Type:Patient Education How to access health informa tion online - Detail Indication:Hyperlipidemia, unspecified Start:01-Dec-2015 Instruction Type:Patient Education Patient Instructions Indication:Hyperlipidemia, unspecified Start:01-Dec-2015 Instruction Type:Provider Instructions for Treatment How to access health informa tion online Indication:Hypertension, benign Start:02-Jun-2015 Instruction Type:Patient Education How to access health informa tion online - Detail Indication:Hypertension, benign Start:02-Jun-2015 Instruction Type:Patient Education Patient Instructions Indication:Hypertension, benign Start:02-Jun-2015 Instruction Type:Provider Instructions for Treatment Patient Instructions Indication:Hyperlipidemia, unspecified Start:06-Oct-2013 Instruction Type:Provider Instructions for Treatment Patient Instructions Indication:FAMILY HISTORY OF ISCHEMIC HEART DISEASE Start:29-May-2012 Instruction Type:Provider Instructions for Treatment Patient Instructions Indication:Palpitations Start:22-May-2012 Instruction Type:Provider Instructions for Treatment [facility]; [facility] Work Phone: Instructions* Name Dates Details Patient Instructions Indication:Right calf pain Start:26-Nov-2022 Instruction Type:Provider Instructions for Treatment How to Access Health Informa tion Online using Patient Portal and [employer] Apps Indication:Right calf pain Start:26-Nov-2022 Instruction Type:Patient Education Patient Instructions Indication:Hyperlipidemia, unspecified Start:25-Oct-2022 Instruction Type:Provider Instructions for Treatment How to Access Health Informa tion Online using Patient Portal and [employer] Apps Indication:Hyperlipidemia, unspecified Start:25-Oct-2022 Instruction Type:Patient Education Patient Instructions Indication:BMI 28.0-28.9,adult Start:17-Jan-2022 Instruction Type:Provider Instructions for Treatment How to Access Health Informa tion Online using Patient Portal and [employer] Apps Indication:BMI 28.0-28.9,adult Start:17-Jan-2022 Instruction Type:Patient Education Patient Instructions Indication:BMI 28.0-28.9,adult Start:26-Jul-2021 Instruction Type:Provider Instructions for Treatment How to Access Health Informa tion Online using Patient Portal and [employer] Apps Indication:BMI 28.0-28.9,adult Start:26-Jul-2021 Instruction Type:Patient Education How to Access Health Informa tion Online using Patient Portal and [employer] Apps Indication:Non-smoker Start:19-Jan-2021 Instruction Type:Patient Education Patient Instructions Indication:Non-smoker Start:19-Jan-2021 Instruction Type:Provider Instructions for Treatment Patient Instructions Indication:Hypertension, benign Start:23-Jun-2020 Instruction Type:Provider Instructions for Treatment How to Access Health Informa tion Online using Patient Portal and [employer] Apps Indication:Hypertension, benign Start:23-Jun-2020 Instruction Type:Patient Education How to access health informa tion online Indication:Non-smoker Start:17-Dec-2019 Instruction Type:Patient Education How to access health informa tion online - Detail Indication:Non-smoker Start:17-Dec-2019 Instruction Type:Patient Education Patient Instructions Indication:Non-smoker Start:17-Dec-2019 Instruction Type:Provider Instructions for Treatment How to access health informa tion online Indication:BMI 26.0-26.9,adult Start:15-Jan-2019 Instruction Type:Patient Education How to access health informa tion online - Detail Indication:BMI 26.0-26.9,adult Start:15-Jan-2019 Instruction Type:Patient Education Patient Instructions Indication:BMI 26.0-26.9,adult Start:15-Jan-2019 Instruction Type:Provider Instructions for Treatment How to access health informa tion online Indication:BMI 22.0-22.9, adult Start:29-May-2018 Instruction Type:Patient Education How to access health informa tion online - Detail Indication:BMI 22.0-22.9, adult Start:29-May-2018 Instruction Type:Patient Education Patient Instructions Indication:BMI 22.0-22.9, adult Start:29-May-2018 Instruction Type:Provider Instructions for Treatment How to access health informa tion online Indication:BMI 21.0-21.9, adult Start:19-Dec-2017 Instruction Type:Patient Education How to access health informa tion online - Detail Indication:BMI 21.0-21.9, adult Start:19-Dec-2017 Instruction Type:Patient Education Patient Instructions Indication:BMI 21.0-21.9, adult Start:19-Dec-2017 Instruction Type:Provider Instructions for Treatment How to access health informa tion online Indication:Non-smoker Start:09-May-2017 Instruction Type:Patient Education How to access health informa tion online - Detail Indication:Non-smoker Start:09-May-2017 Instruction Type:Patient Education Patient Instructions Indication:Non-smoker Start:09-May-2017 Instruction Type:Provider Instructions for Treatment Patient Instructions Indication:Non-smoker Start:09-May-2017 Instruction Type:Provider Instructions for Treatment How to access health informa tion online Indication:Body mass index (BMI) 23.0-23.9, adult Start:04-Nov-2016 Instruction Type:Patient Education How to access health informa tion online - Detail Indication:Body mass index (BMI) 23.0-23.9, adult Start:04-Nov-2016 Instruction Type:Patient Education Patient Instructions Indication:Body mass index (BMI) 23.0-23.9, adult Start:04-Nov-2016 Instruction Type:Provider Instructions for Treatment How to access health informa tion online Indication:Non-smoker Start:31-May-2016 Instruction Type:Patient Education How to access health informa tion online - Detail Indication:Non-smoker Start:31-May-2016 Instruction Type:Patient Education Patient Instructions Indication:Non-smoker Start:31-May-2016 Instruction Type:Provider Instructions for Treatment How to access health informa tion online Indication:Hyperlipidemia, unspecified Start:01-Dec-2015 Instruction Type:Patient Education How to access health informa tion online - Detail Indication:Hyperlipidemia, unspecified Start:01-Dec-2015 Instruction Type:Patient Education Patient Instructions Indication:Hyperlipidemia, unspecified Start:01-Dec-2015 Instruction Type:Provider Instructions for Treatment How to access health informa tion online Indication:Hypertension, benign Start:02-Jun-2015 Instruction Type:Patient Education How to access health informa tion online - Detail Indication:Hypertension, benign Start:02-Jun-2015 Instruction Type:Patient Education Patient Instructions Indication:Hypertension, benign Start:02-Jun-2015 Instruction Type:Provider Instructions for Treatment Patient Instructions Indication:Hyperlipidemia, unspecified Start:06-Oct-2013 Instruction Type:Provider Instructions for Treatment Patient Instructions Indication:FAMILY HISTORY OF ISCHEMIC HEART DISEASE Start:29-May-2012 Instruction Type:Provider Instructions for Treatment Patient Instructions Indication:Palpitations Start:22-May-2012 Instruction Type:Provider Instructions for Treatment [facility]; [facility] Work Phone: Instructions* Name Dates Details Patient Instructions Indication:Non-smoker Start:04-Mar-2023 Instruction Type:Provider Instructions for Treatment How to Access Health Informa tion Online using Patient Portal and [employer] Apps Indication:Non-smoker Start:04-Mar-2023 Instruction Type:Patient Education Patient Instructions Indication:Right calf pain Start:26-Nov-2022 Instruction Type:Provider Instructions for Treatment How to Access Health Informa tion Online using Patient Portal and [employer] Apps Indication:Right calf pain Start:26-Nov-2022 Instruction Type:Patient Education Patient Instructions Indication:Hyperlipidemia, unspecified Start:25-Oct-2022 Instruction Type:Provider Instructions for Treatment How to Access Health Informa tion Online using Patient Portal and [employer] Apps Indication:Hyperlipidemia, unspecified Start:25-Oct-2022 Instruction Type:Patient Education Patient Instructions Indication:BMI 28.0-28.9,adult Start:17-Jan-2022 Instruction Type:Provider Instructions for Treatment How to Access Health Informa tion Online using Patient Portal and [employer] Apps Indication:BMI 28.0-28.9,adult Start:17-Jan-2022 Instruction Type:Patient Education Patient Instructions Indication:BMI 28.0-28.9,adult Start:26-Jul-2021 Instruction Type:Provider Instructions for Treatment How to Access Health Informa tion Online using Patient Portal and [employer] Apps Indication:BMI 28.0-28.9,adult Start:26-Jul-2021 Instruction Type:Patient Education How to Access Health Informa tion Online using Patient Portal and [employer] Apps Indication:Non-smoker Start:19-Jan-2021 Instruction Type:Patient Education Patient Instructions Indication:Non-smoker Start:19-Jan-2021 Instruction Type:Provider Instructions for Treatment Patient Instructions Indication:Hypertension, benign Start:23-Jun-2020 Instruction Type:Provider Instructions for Treatment How to Access Health Informa tion Online using Patient Portal and [employer] Apps Indication:Hypertension, benign Start:23-Jun-2020 Instruction Type:Patient Education How to access health informa tion online Indication:Non-smoker Start:17-Dec-2019 Instruction Type:Patient Education How to access health informa tion online - Detail Indication:Non-smoker Start:17-Dec-2019 Instruction Type:Patient Education Patient Instructions Indication:Non-smoker Start:17-Dec-2019 Instruction Type:Provider Instructions for Treatment How to access health informa tion online Indication:BMI 26.0-26.9,adult Start:15-Jan-2019 Instruction Type:Patient Education How to access health informa tion online - Detail Indication:BMI 26.0-26.9,adult Start:15-Jan-2019 Instruction Type:Patient Education Patient Instructions Indication:BMI 26.0-26.9,adult Start:15-Jan-2019 Instruction Type:Provider Instructions for Treatment How to access health informa tion online Indication:BMI 22.0-22.9, adult Start:29-May-2018 Instruction Type:Patient Education How to access health informa tion online - Detail Indication:BMI 22.0-22.9, adult Start:29-May-2018 Instruction Type:Patient Education Patient Instructions Indication:BMI 22.0-22.9, adult Start:29-May-2018 Instruction Type:Provider Instructions for Treatment How to access health informa tion online Indication:BMI 21.0-21.9, adult Start:19-Dec-2017 Instruction Type:Patient Education How to access health informa tion online - Detail Indication:BMI 21.0-21.9, adult Start:19-Dec-2017 Instruction Type:Patient Education Patient Instructions Indication:BMI 21.0-21.9, adult Start:19-Dec-2017 Instruction Type:Provider Instructions for Treatment How to access health informa tion online Indication:Non-smoker Start:09-May-2017 Instruction Type:Patient Education How to access health informa tion online - Detail Indication:Non-smoker Start:09-May-2017 Instruction Type:Patient Education Patient Instructions Indication:Non-smoker Start:09-May-2017 Instruction Type:Provider Instructions for Treatment Patient Instructions Indication:Non-smoker Start:09-May-2017 Instruction Type:Provider Instructions for Treatment How to access health informa tion online Indication:Body mass index (BMI) 23.0-23.9, adult Start:04-Nov-2016 Instruction Type:Patient Education How to access health informa tion online - Detail Indication:Body mass index (BMI) 23.0-23.9, adult Start:04-Nov-2016 Instruction Type:Patient Education Patient Instructions Indication:Body mass index (BMI) 23.0-23.9, adult Start:04-Nov-2016 Instruction Type:Provider Instructions for Treatment How to access health informa tion online Indication:Non-smoker Start:31-May-2016 Instruction Type:Patient Education How to access health informa tion online - Detail Indication:Non-smoker Start:31-May-2016 Instruction Type:Patient Education Patient Instructions Indication:Non-smoker Start:31-May-2016 Instruction Type:Provider Instructions for Treatment How to access health informa tion online Indication:Hyperlipidemia, unspecified Start:01-Dec-2015 Instruction Type:Patient Education How to access health informa tion online - Detail Indication:Hyperlipidemia, unspecified Start:01-Dec-2015 Instruction Type:Patient Education Patient Instructions Indication:Hyperlipidemia, unspecified Start:01-Dec-2015 Instruction Type:Provider Instructions for Treatment How to access health informa tion online Indication:Hypertension, benign Start:02-Jun-2015 Instruction Type:Patient Education How to access health informa tion online - Detail Indication:Hypertension, benign Start:02-Jun-2015 Instruction Type:Patient Education Patient Instructions Indication:Hypertension, benign Start:02-Jun-2015 Instruction Type:Provider Instructions for Treatment Patient Instructions Indication:Hyperlipidemia, unspecified Start:06-Oct-2013 Instruction Type:Provider Instructions for Treatment Patient Instructions Indication:FAMILY HISTORY OF ISCHEMIC HEART DISEASE Start:29-May-2012 Instruction Type:Provider Instructions for Treatment Patient Instructions Indication:Palpitations Start:22-May-2012 Instruction Type:Provider Instructions for Treatment [facility]; [facility] Work Phone: Instructions* Name Dates Details Patient Instructions Indication:Non-smoker Start:04-Mar-2023 Instruction Type:Provider Instructions for Treatment How to Access Health Informa tion Online using Patient Portal and [employer] Apps Indication:Non-smoker Start:04-Mar-2023 Instruction Type:Patient Education Patient Instructions Indication:Right calf pain Start:26-Nov-2022 Instruction Type:Provider Instructions for Treatment How to Access Health Informa tion Online using Patient Portal and [employer] Apps Indication:Right calf pain Start:26-Nov-2022 Instruction Type:Patient Education Patient Instructions Indication:Hyperlipidemia, unspecified Start:25-Oct-2022 Instruction Type:Provider Instructions for Treatment How to Access Health Informa tion Online using Patient Portal and [employer] Apps Indication:Hyperlipidemia, unspecified Start:25-Oct-2022 Instruction Type:Patient Education Patient Instructions Indication:BMI 28.0-28.9,adult Start:17-Jan-2022 Instruction Type:Provider Instructions for Treatment How to Access Health Informa tion Online using Patient Portal and [employer] Apps Indication:BMI 28.0-28.9,adult Start:17-Jan-2022 Instruction Type:Patient Education Patient Instructions Indication:BMI 28.0-28.9,adult Start:26-Jul-2021 Instruction Type:Provider Instructions for Treatment How to Access Health Informa tion Online using Patient Portal and [employer] Apps Indication:BMI 28.0-28.9,adult Start:26-Jul-2021 Instruction Type:Patient Education How to Access Health Informa tion Online using Patient Portal and [employer] Apps Indication:Non-smoker Start:19-Jan-2021 Instruction Type:Patient Education Patient Instructions Indication:Non-smoker Start:19-Jan-2021 Instruction Type:Provider Instructions for Treatment Patient Instructions Indication:Hypertension, benign Start:23-Jun-2020 Instruction Type:Provider Instructions for Treatment How to Access Health Informa tion Online using Patient Portal and [employer] Apps Indication:Hypertension, benign Start:23-Jun-2020 Instruction Type:Patient Education How to access health informa tion online Indication:Non-smoker Start:17-Dec-2019 Instruction Type:Patient Education How to access health informa tion online - Detail Indication:Non-smoker Start:17-Dec-2019 Instruction Type:Patient Education Patient Instructions Indication:Non-smoker Start:17-Dec-2019 Instruction Type:Provider Instructions for Treatment How to access health informa tion online Indication:BMI 26.0-26.9,adult Start:15-Jan-2019 Instruction Type:Patient Education How to access health informa tion online - Detail Indication:BMI 26.0-26.9,adult Start:15-Jan-2019 Instruction Type:Patient Education Patient Instructions Indication:BMI 26.0-26.9,adult Start:15-Jan-2019 Instruction Type:Provider Instructions for Treatment How to access health informa tion online Indication:BMI 22.0-22.9, adult Start:29-May-2018 Instruction Type:Patient Education How to access health informa tion online - Detail Indication:BMI 22.0-22.9, adult Start:29-May-2018 Instruction Type:Patient Education Patient Instructions Indication:BMI 22.0-22.9, adult Start:29-May-2018 Instruction Type:Provider Instructions for Treatment How to access health informa tion online Indication:BMI 21.0-21.9, adult Start:19-Dec-2017 Instruction Type:Patient Education How to access health informa tion online - Detail Indication:BMI 21.0-21.9, adult Start:19-Dec-2017 Instruction Type:Patient Education Patient Instructions Indication:BMI 21.0-21.9, adult Start:19-Dec-2017 Instruction Type:Provider Instructions for Treatment How to access health informa tion online Indication:Non-smoker Start:09-May-2017 Instruction Type:Patient Education How to access health informa tion online - Detail Indication:Non-smoker Start:09-May-2017 Instruction Type:Patient Education Patient Instructions Indication:Non-smoker Start:09-May-2017 Instruction Type:Provider Instructions for Treatment Patient Instructions Indication:Non-smoker Start:09-May-2017 Instruction Type:Provider Instructions for Treatment How to access health informa tion online Indication:Body mass index (BMI) 23.0-23.9, adult Start:04-Nov-2016 Instruction Type:Patient Education How to access health informa tion online - Detail Indication:Body mass index (BMI) 23.0-23.9, adult Start:04-Nov-2016 Instruction Type:Patient Education Patient Instructions Indication:Body mass index (BMI) 23.0-23.9, adult Start:04-Nov-2016 Instruction Type:Provider Instructions for Treatment How to access health informa tion online Indication:Non-smoker Start:31-May-2016 Instruction Type:Patient Education How to access health informa tion online - Detail Indication:Non-smoker Start:31-May-2016 Instruction Type:Patient Education Patient Instructions Indication:Non-smoker Start:31-May-2016 Instruction Type:Provider Instructions for Treatment How to access health informa tion online Indication:Hyperlipidemia, unspecified Start:01-Dec-2015 Instruction Type:Patient Education How to access health informa tion online - Detail Indication:Hyperlipidemia, unspecified Start:01-Dec-2015 Instruction Type:Patient Education Patient Instructions Indication:Hyperlipidemia, unspecified Start:01-Dec-2015 Instruction Type:Provider Instructions for Treatment How to access health informa tion online Indication:Hypertension, benign Start:02-Jun-2015 Instruction Type:Patient Education How to access health informa tion online - Detail Indication:Hypertension, benign Start:02-Jun-2015 Instruction Type:Patient Education Patient Instructions Indication:Hypertension, benign Start:02-Jun-2015 Instruction Type:Provider Instructions for Treatment Patient Instructions Indication:Hyperlipidemia, unspecified Start:06-Oct-2013 Instruction Type:Provider Instructions for Treatment Patient Instructions Indication:FAMILY HISTORY OF ISCHEMIC HEART DISEASE Start:29-May-2012 Instruction Type:Provider Instructions for Treatment Patient Instructions Indication:Palpitations Start:22-May-2012 Instruction Type:Provider Instructions for Treatment [facility]; [facility] Work Phone: Instructions* Name Dates Details Patient Instructions Indication:Hypertension, benign Start:24-Apr-2023 Instruction Type:Provider Instructions for Treatment How to Access Health Informa tion Online using Patient Portal and [employer] Apps Indication:Hypertension, benign Start:24-Apr-2023 Instruction Type:Patient Education Patient Instructions Indication:Non-smoker Start:04-Mar-2023 Instruction Type:Provider Instructions for Treatment How to Access Health Informa tion Online using Patient Portal and [employer] Apps Indication:Non-smoker Start:04-Mar-2023 Instruction Type:Patient Education Patient Instructions Indication:Right calf pain Start:26-Nov-2022 Instruction Type:Provider Instructions for Treatment How to Access Health Informa tion Online using Patient Portal and [employer] Apps Indication:Right calf pain Start:26-Nov-2022 Instruction Type:Patient Education Patient Instructions Indication:Hyperlipidemia, unspecified Start:25-Oct-2022 Instruction Type:Provider Instructions for Treatment How to Access Health Informa tion Online using Patient Portal and [employer] Apps Indication:Hyperlipidemia, unspecified Start:25-Oct-2022 Instruction Type:Patient Education Patient Instructions Indication:BMI 28.0-28.9,adult Start:17-Jan-2022 Instruction Type:Provider Instructions for Treatment How to Access Health Informa tion Online using Patient Portal and [employer] Apps Indication:BMI 28.0-28.9,adult Start:17-Jan-2022 Instruction Type:Patient Education Patient Instructions Indication:BMI 28.0-28.9,adult Start:26-Jul-2021 Instruction Type:Provider Instructions for Treatment How to Access Health Informa tion Online using Patient Portal and [employer] Apps Indication:BMI 28.0-28.9,adult Start:26-Jul-2021 Instruction Type:Patient Education How to Access Health Informa tion Online using Patient Portal and [employer] Apps Indication:Non-smoker Start:19-Jan-2021 Instruction Type:Patient Education Patient Instructions Indication:Non-smoker Start:19-Jan-2021 Instruction Type:Provider Instructions for Treatment Patient Instructions Indication:Hypertension, benign Start:23-Jun-2020 Instruction Type:Provider Instructions for Treatment How to Access Health Informa tion Online using Patient Portal and [employer] Apps Indication:Hypertension, benign Start:23-Jun-2020 Instruction Type:Patient Education How to access health informa tion online Indication:Non-smoker Start:17-Dec-2019 Instruction Type:Patient Education How to access health informa tion online - Detail Indication:Non-smoker Start:17-Dec-2019 Instruction Type:Patient Education Patient Instructions Indication:Non-smoker Start:17-Dec-2019 Instruction Type:Provider Instructions for Treatment How to access health informa tion online Indication:BMI 26.0-26.9,adult Start:15-Jan-2019 Instruction Type:Patient Education How to access health informa tion online - Detail Indication:BMI 26.0-26.9,adult Start:15-Jan-2019 Instruction Type:Patient Education Patient Instructions Indication:BMI 26.0-26.9,adult Start:15-Jan-2019 Instruction Type:Provider Instructions for Treatment How to access health informa tion online Indication:BMI 22.0-22.9, adult Start:29-May-2018 Instruction Type:Patient Education How to access health informa tion online - Detail Indication:BMI 22.0-22.9, adult Start:29-May-2018 Instruction Type:Patient Education Patient Instructions Indication:BMI 22.0-22.9, adult Start:29-May-2018 Instruction Type:Provider Instructions for Treatment How to access health informa tion online Indication:BMI 21.0-21.9, adult Start:19-Dec-2017 Instruction Type:Patient Education How to access health informa tion online - Detail Indication:BMI 21.0-21.9, adult Start:19-Dec-2017 Instruction Type:Patient Education Patient Instructions Indication:BMI 21.0-21.9, adult Start:19-Dec-2017 Instruction Type:Provider Instructions for Treatment How to access health informa tion online Indication:Non-smoker Start:09-May-2017 Instruction Type:Patient Education How to access health informa tion online - Detail Indication:Non-smoker Start:09-May-2017 Instruction Type:Patient Education Patient Instructions Indication:Non-smoker Start:09-May-2017 Instruction Type:Provider Instructions for Treatment Patient Instructions Indication:Non-smoker Start:09-May-2017 Instruction Type:Provider Instructions for Treatment How to access health informa tion online Indication:Body mass index (BMI) 23.0-23.9, adult Start:04-Nov-2016 Instruction Type:Patient Education How to access health informa tion online - Detail Indication:Body mass index (BMI) 23.0-23.9, adult Start:04-Nov-2016 Instruction Type:Patient Education Patient Instructions Indication:Body mass index (BMI) 23.0-23.9, adult Start:04-Nov-2016 Instruction Type:Provider Instructions for Treatment How to access health informa tion online Indication:Non-smoker Start:31-May-2016 Instruction Type:Patient Education How to access health informa tion online - Detail Indication:Non-smoker Start:31-May-2016 Instruction Type:Patient Education Patient Instructions Indication:Non-smoker Start:31-May-2016 Instruction Type:Provider Instructions for Treatment How to access health informa tion online Indication:Hyperlipidemia, unspecified Start:01-Dec-2015 Instruction Type:Patient Education How to access health informa tion online - Detail Indication:Hyperlipidemia, unspecified Start:01-Dec-2015 Instruction Type:Patient Education Patient Instructions Indication:Hyperlipidemia, unspecified Start:01-Dec-2015 Instruction Type:Provider Instructions for Treatment How to access health informa tion online Indication:Hypertension, benign Start:02-Jun-2015 Instruction Type:Patient Education How to access health informa tion online - Detail Indication:Hypertension, benign Start:02-Jun-2015 Instruction Type:Patient Education Patient Instructions Indication:Hypertension, benign Start:02-Jun-2015 Instruction Type:Provider Instructions for Treatment Patient Instructions Indication:Hyperlipidemia, unspecified Start:06-Oct-2013 Instruction Type:Provider Instructions for Treatment Patient Instructions Indication:FAMILY HISTORY OF ISCHEMIC HEART DISEASE Start:29-May-2012 Instruction Type:Provider Instructions for Treatment Patient Instructions Indication:Palpitations Start:22-May-2012 Instruction Type:Provider Instructions for Treatment [facility] Work Phone: Instructions* Name Dates Details Patient Instructions Indication:Hypertension, benign Start:24-Apr-2023 Instruction Type:Provider Instructions for Treatment How to Access Health Informa tion Online using Patient Portal and [employer] Apps Indication:Hypertension, benign Start:24-Apr-2023 Instruction Type:Patient Education Patient Instructions Indication:Non-smoker Start:04-Mar-2023 Instruction Type:Provider Instructions for Treatment How to Access Health Informa tion Online using Patient Portal and [employer] Apps Indication:Non-smoker Start:04-Mar-2023 Instruction Type:Patient Education Patient Instructions Indication:Right calf pain Start:26-Nov-2022 Instruction Type:Provider Instructions for Treatment How to Access Health Informa tion Online using Patient Portal and [employer] Apps Indication:Right calf pain Start:26-Nov-2022 Instruction Type:Patient Education Patient Instructions Indication:Hyperlipidemia, unspecified Start:25-Oct-2022 Instruction Type:Provider Instructions for Treatment How to Access Health Informa tion Online using Patient Portal and [employer] Apps Indication:Hyperlipidemia, unspecified Start:25-Oct-2022 Instruction Type:Patient Education Patient Instructions Indication:BMI 28.0-28.9,adult Start:17-Jan-2022 Instruction Type:Provider Instructions for Treatment How to Access Health Informa tion Online using Patient Portal and [employer] Apps Indication:BMI 28.0-28.9,adult Start:17-Jan-2022 Instruction Type:Patient Education Patient Instructions Indication:BMI 28.0-28.9,adult Start:26-Jul-2021 Instruction Type:Provider Instructions for Treatment How to Access Health Informa tion Online using Patient Portal and [employer] Apps Indication:BMI 28.0-28.9,adult Start:26-Jul-2021 Instruction Type:Patient Education How to Access Health Informa tion Online using Patient Portal and [employer] Apps Indication:Non-smoker Start:19-Jan-2021 Instruction Type:Patient Education Patient Instructions Indication:Non-smoker Start:19-Jan-2021 Instruction Type:Provider Instructions for Treatment Patient Instructions Indication:Hypertension, benign Start:23-Jun-2020 Instruction Type:Provider Instructions for Treatment How to Access Health Informa tion Online using Patient Portal and [employer] Apps Indication:Hypertension, benign Start:23-Jun-2020 Instruction Type:Patient Education How to access health informa tion online Indication:Non-smoker Start:17-Dec-2019 Instruction Type:Patient Education How to access health informa tion online - Detail Indication:Non-smoker Start:17-Dec-2019 Instruction Type:Patient Education Patient Instructions Indication:Non-smoker Start:17-Dec-2019 Instruction Type:Provider Instructions for Treatment How to access health informa tion online Indication:BMI 26.0-26.9,adult Start:15-Jan-2019 Instruction Type:Patient Education How to access health informa tion online - Detail Indication:BMI 26.0-26.9,adult Start:15-Jan-2019 Instruction Type:Patient Education Patient Instructions Indication:BMI 26.0-26.9,adult Start:15-Jan-2019 Instruction Type:Provider Instructions for Treatment How to access health informa tion online Indication:BMI 22.0-22.9, adult Start:29-May-2018 Instruction Type:Patient Education How to access health informa tion online - Detail Indication:BMI 22.0-22.9, adult Start:29-May-2018 Instruction Type:Patient Education Patient Instructions Indication:BMI 22.0-22.9, adult Start:29-May-2018 Instruction Type:Provider Instructions for Treatment How to access health informa tion online Indication:BMI 21.0-21.9, adult Start:19-Dec-2017 Instruction Type:Patient Education How to access health informa tion online - Detail Indication:BMI 21.0-21.9, adult Start:19-Dec-2017 Instruction Type:Patient Education Patient Instructions Indication:BMI 21.0-21.9, adult Start:19-Dec-2017 Instruction Type:Provider Instructions for Treatment How to access health informa tion online Indication:Non-smoker Start:09-May-2017 Instruction Type:Patient Education How to access health informa tion online - Detail Indication:Non-smoker Start:09-May-2017 Instruction Type:Patient Education Patient Instructions Indication:Non-smoker Start:09-May-2017 Instruction Type:Provider Instructions for Treatment Patient Instructions Indication:Non-smoker Start:09-May-2017 Instruction Type:Provider Instructions for Treatment How to access health informa tion online Indication:Body mass index (BMI) 23.0-23.9, adult Start:04-Nov-2016 Instruction Type:Patient Education How to access health informa tion online - Detail Indication:Body mass index (BMI) 23.0-23.9, adult Start:04-Nov-2016 Instruction Type:Patient Education Patient Instructions Indication:Body mass index (BMI) 23.0-23.9, adult Start:04-Nov-2016 Instruction Type:Provider Instructions for Treatment How to access health informa tion online Indication:Non-smoker Start:31-May-2016 Instruction Type:Patient Education How to access health informa tion online - Detail Indication:Non-smoker Start:31-May-2016 Instruction Type:Patient Education Patient Instructions Indication:Non-smoker Start:31-May-2016 Instruction Type:Provider Instructions for Treatment How to access health informa tion online Indication:Hyperlipidemia, unspecified Start:01-Dec-2015 Instruction Type:Patient Education How to access health informa tion online - Detail Indication:Hyperlipidemia, unspecified Start:01-Dec-2015 Instruction Type:Patient Education Patient Instructions Indication:Hyperlipidemia, unspecified Start:01-Dec-2015 Instruction Type:Provider Instructions for Treatment How to access health informa tion online Indication:Hypertension, benign Start:02-Jun-2015 Instruction Type:Patient Education How to access health informa tion online - Detail Indication:Hypertension, benign Start:02-Jun-2015 Instruction Type:Patient Education Patient Instructions Indication:Hypertension, benign Start:02-Jun-2015 Instruction Type:Provider Instructions for Treatment Patient Instructions Indication:Hyperlipidemia, unspecified Start:06-Oct-2013 Instruction Type:Provider Instructions for Treatment Patient Instructions Indication:FAMILY HISTORY OF ISCHEMIC HEART DISEASE Start:29-May-2012 Instruction Type:Provider Instructions for Treatment Patient Instructions Indication:Palpitations Start:22-May-2012 Instruction Type:Provider Instructions for Treatment [facility] Work Phone: Instructions* Name Dates Details Patient Instructions Indication:Hypertension, benign Start:24-Apr-2023 Instruction Type:Provider Instructions for Treatment How to Access Health Informa tion Online using Patient Portal and [employer] Apps Indication:Hypertension, benign Start:24-Apr-2023 Instruction Type:Patient Education Patient Instructions Indication:Non-smoker Start:04-Mar-2023 Instruction Type:Provider Instructions for Treatment How to Access Health Informa tion Online using Patient Portal and [employer] Apps Indication:Non-smoker Start:04-Mar-2023 Instruction Type:Patient Education Patient Instructions Indication:Right calf pain Start:26-Nov-2022 Instruction Type:Provider Instructions for Treatment How to Access Health Informa tion Online using Patient Portal and [employer] Apps Indication:Right calf pain Start:26-Nov-2022 Instruction Type:Patient Education Patient Instructions Indication:Hyperlipidemia, unspecified Start:25-Oct-2022 Instruction Type:Provider Instructions for Treatment How to Access Health Informa tion Online using Patient Portal and [employer] Apps Indication:Hyperlipidemia, unspecified Start:25-Oct-2022 Instruction Type:Patient Education Patient Instructions Indication:BMI 28.0-28.9,adult Start:17-Jan-2022 Instruction Type:Provider Instructions for Treatment How to Access Health Informa tion Online using Patient Portal and [employer] Apps Indication:BMI 28.0-28.9,adult Start:17-Jan-2022 Instruction Type:Patient Education Patient Instructions Indication:BMI 28.0-28.9,adult Start:26-Jul-2021 Instruction Type:Provider Instructions for Treatment How to Access Health Informa tion Online using Patient Portal and [employer] Apps Indication:BMI 28.0-28.9,adult Start:26-Jul-2021 Instruction Type:Patient Education How to Access Health Informa tion Online using Patient Portal and [employer] Apps Indication:Non-smoker Start:19-Jan-2021 Instruction Type:Patient Education Patient Instructions Indication:Non-smoker Start:19-Jan-2021 Instruction Type:Provider Instructions for Treatment Patient Instructions Indication:Hypertension, benign Start:23-Jun-2020 Instruction Type:Provider Instructions for Treatment How to Access Health Informa tion Online using Patient Portal and [employer] Apps Indication:Hypertension, benign Start:23-Jun-2020 Instruction Type:Patient Education How to access health informa tion online Indication:Non-smoker Start:17-Dec-2019 Instruction Type:Patient Education How to access health informa tion online - Detail Indication:Non-smoker Start:17-Dec-2019 Instruction Type:Patient Education Patient Instructions Indication:Non-smoker Start:17-Dec-2019 Instruction Type:Provider Instructions for Treatment How to access health informa tion online Indication:BMI 26.0-26.9,adult Start:15-Jan-2019 Instruction Type:Patient Education How to access health informa tion online - Detail Indication:BMI 26.0-26.9,adult Start:15-Jan-2019 Instruction Type:Patient Education Patient Instructions Indication:BMI 26.0-26.9,adult Start:15-Jan-2019 Instruction Type:Provider Instructions for Treatment How to access health informa tion online Indication:BMI 22.0-22.9, adult Start:29-May-2018 Instruction Type:Patient Education How to access health informa tion online - Detail Indication:BMI 22.0-22.9, adult Start:29-May-2018 Instruction Type:Patient Education Patient Instructions Indication:BMI 22.0-22.9, adult Start:29-May-2018 Instruction Type:Provider Instructions for Treatment How to access health informa tion online Indication:BMI 21.0-21.9, adult Start:19-Dec-2017 Instruction Type:Patient Education How to access health informa tion online - Detail Indication:BMI 21.0-21.9, adult Start:19-Dec-2017 Instruction Type:Patient Education Patient Instructions Indication:BMI 21.0-21.9, adult Start:19-Dec-2017 Instruction Type:Provider Instructions for Treatment How to access health informa tion online Indication:Non-smoker Start:09-May-2017 Instruction Type:Patient Education How to access health informa tion online - Detail Indication:Non-smoker Start:09-May-2017 Instruction Type:Patient Education Patient Instructions Indication:Non-smoker Start:09-May-2017 Instruction Type:Provider Instructions for Treatment Patient Instructions Indication:Non-smoker Start:09-May-2017 Instruction Type:Provider Instructions for Treatment How to access health informa tion online Indication:Body mass index (BMI) 23.0-23.9, adult Start:04-Nov-2016 Instruction Type:Patient Education How to access health informa tion online - Detail Indication:Body mass index (BMI) 23.0-23.9, adult Start:04-Nov-2016 Instruction Type:Patient Education Patient Instructions Indication:Body mass index (BMI) 23.0-23.9, adult Start:04-Nov-2016 Instruction Type:Provider Instructions for Treatment How to access health informa tion online Indication:Non-smoker Start:31-May-2016 Instruction Type:Patient Education How to access health informa tion online - Detail Indication:Non-smoker Start:31-May-2016 Instruction Type:Patient Education Patient Instructions Indication:Non-smoker Start:31-May-2016 Instruction Type:Provider Instructions for Treatment How to access health informa tion online Indication:Hyperlipidemia, unspecified Start:01-Dec-2015 Instruction Type:Patient Education How to access health informa tion online - Detail Indication:Hyperlipidemia, unspecified Start:01-Dec-2015 Instruction Type:Patient Education Patient Instructions Indication:Hyperlipidemia, unspecified Start:01-Dec-2015 Instruction Type:Provider Instructions for Treatment How to access health informa tion online Indication:Hypertension, benign Start:02-Jun-2015 Instruction Type:Patient Education How to access health informa tion online - Detail Indication:Hypertension, benign Start:02-Jun-2015 Instruction Type:Patient Education Patient Instructions Indication:Hypertension, benign Start:02-Jun-2015 Instruction Type:Provider Instructions for Treatment Patient Instructions Indication:Hyperlipidemia, unspecified Start:06-Oct-2013 Instruction Type:Provider Instructions for Treatment Patient Instructions Indication:FAMILY HISTORY OF ISCHEMIC HEART DISEASE Start:29-May-2012 Instruction Type:Provider Instructions for Treatment Patient Instructions Indication:Palpitations Start:22-May-2012 Instruction Type:Provider Instructions for Treatment [facility]; [facility] Work Phone: progress note No data available for this section [facility] Reason for referral (narrative)No reason for referral information availableWPrem[facility] Work Phone: Instructions Name Dates Details BMI 22.0-22.9, adult : How t o access health information online Indication:BMI 22.0-22.9, adult BMI 22.0-22.9, adult : How t o access health information online - Detail Indication:BMI 22.0-22.9, adult BMI 22.0-22.9, adult : Patie nt Instructions Indication:BMI 22.0-22.9, adult BMI 21.0-21.9, adult : How t o access health information online Indication:BMI 21.0-21.9, adult BMI 21.0-21.9, adult : How t o access health information online - Detail Indication:BMI 21.0-21.9, adult BMI 21.0-21.9, adult : Patie nt Instructions Indication:BMI 21.0-21.9, adult Non-smoker : How to access h ealth information online Indication:Non-smoker Non-smoker : How to access h ealth information online - Detail Indication:Non-smoker Non-smoker : Patient Instruc tions Indication:Non-smoker Body mass index (BMI) 23.0-2 3.9, adult : How to access health information online Indication:Body mass index (BMI) 23.0-23.9, adult Body mass index (BMI) 23.0-2 3.9, adult : How to access health information online - Detail Indication:Body mass index (BMI) 23.0-23.9, adult Body mass index (BMI) 23.0-2 3.9, adult : Patient Instructions Indication:Body mass index (BMI) 23.0-23.9, adult Hyperlipidemia, unspecified : How to access health information online Indication:Hyperlipidemia, unspecified Hyperlipidemia, unspecified : How to access health information online - Detail Indication:Hyperlipidemia, unspecified Hyperlipidemia, unspecified : Patient Instructions Indication:Hyperlipidemia, unspecified Hypertension, benign : How t o access health information online Indication:Hypertension, benign Hypertension, benign : How t o access health information online - Detail Indication:Hypertension, benign Hypertension, benign : Patie nt Instructions Indication:Hypertension, benign FAMILY HISTORY OF ISCHEMIC H EART DISEASE : Patient Instructions Indication:FAMILY HISTORY OF ISCHEMIC HEART DISEASE Palpitations : Patient Instr uctions Indication:Palpitations Name Dates Details How to access health informa tion online Indication:BMI 26.0-26.9,adult Start:15-Jan-2019 Instruction Type:Patient Education How to access health informa tion online - Detail Indication:BMI 26.0-26.9,adult Start:15-Jan-2019 Instruction Type:Patient Education Patient Instructions Indication:BMI 26.0-26.9,adult Start:15-Jan-2019 Instruction Type:Provider Instructions for Treatment How to access health informa tion online Indication:BMI 22.0-22.9, adult Start:29-May-2018 Instruction Type:Patient Education How to access health informa tion online - Detail Indication:BMI 22.0-22.9, adult Start:29-May-2018 Instruction Type:Patient Education Patient Instructions Indication:BMI 22.0-22.9, adult Start:29-May-2018 Instruction Type:Provider Instructions for Treatment How to access health informa tion online Indication:BMI 21.0-21.9, adult Start:19-Dec-2017 Instruction Type:Patient Education How to access health informa tion online - Detail Indication:BMI 21.0-21.9, adult Start:19-Dec-2017 Instruction Type:Patient Education Patient Instructions Indication:BMI 21.0-21.9, adult Start:19-Dec-2017 Instruction Type:Provider Instructions for Treatment How to access health informa tion online Indication:Non-smoker Start:09-May-2017 Instruction Type:Patient Education How to access health informa tion online - Detail Indication:Non-smoker Start:09-May-2017 Instruction Type:Patient Education Patient Instructions Indication:Non-smoker Start:09-May-2017 Instruction Type:Provider Instructions for Treatment How to access health informa tion online Indication:Body mass index (BMI) 23.0-23.9, adult Start:04-Nov-2016 Instruction Type:Patient Education How to access health informa tion online - Detail Indication:Body mass index (BMI) 23.0-23.9, adult Start:04-Nov-2016 Instruction Type:Patient Education Patient Instructions Indication:Body mass index (BMI) 23.0-23.9, adult Start:04-Nov-2016 Instruction Type:Provider Instructions for Treatment How to access health informa tion online Indication:Non-smoker Start:31-May-2016 Instruction Type:Patient Education How to access health informa tion online - Detail Indication:Non-smoker Start:31-May-2016 Instruction Type:Patient Education Patient Instructions Indication:Non-smoker Start:31-May-2016 Instruction Type:Provider Instructions for Treatment How to access health informa tion online Indication:Hyperlipidemia, unspecified Start:01-Dec-2015 Instruction Type:Patient Education How to access health informa tion online - Detail Indication:Hyperlipidemia, unspecified Start:01-Dec-2015 Instruction Type:Patient Education Patient Instructions Indication:Hyperlipidemia, unspecified Start:01-Dec-2015 Instruction Type:Provider Instructions for Treatment How to access health informa tion online Indication:Hypertension, benign Start:02-Jun-2015 Instruction Type:Patient Education How to access health informa tion online - Detail Indication:Hypertension, benign Start:02-Jun-2015 Instruction Type:Patient Education Patient Instructions Indication:Hypertension, benign Start:02-Jun-2015 Instruction Type:Provider Instructions for Treatment Patient Instructions Indication:Hyperlipidemia, unspecified Start:06-Oct-2013 Instruction Type:Provider Instructions for Treatment Patient Instructions Indication:FAMILY HISTORY OF ISCHEMIC HEART DISEASE Start:29-May-2012 Instruction Type:Provider Instructions for Treatment Patient Instructions Indication:Palpitations Start:22-May-2012 Instruction Type:Provider Instructions for Treatment Name Dates Details How to access health informa tion online Indication:Non-smoker Start:17-Dec-2019 Instruction Type:Patient Education How to access health informa tion online - Detail Indication:Non-smoker Start:17-Dec-2019 Instruction Type:Patient Education Patient Instructions Indication:Non-smoker Start:17-Dec-2019 Instruction Type:Provider Instructions for Treatment How to access health informa tion online Indication:BMI 26.0-26.9,adult Start:15-Jan-2019 Instruction Type:Patient Education How to access health informa tion online - Detail Indication:BMI 26.0-26.9,adult Start:15-Jan-2019 Instruction Type:Patient Education Patient Instructions Indication:BMI 26.0-26.9,adult Start:15-Jan-2019 Instruction Type:Provider Instructions for Treatment How to access health informa tion online Indication:BMI 22.0-22.9, adult Start:29-May-2018 Instruction Type:Patient Education How to access health informa tion online - Detail Indication:BMI 22.0-22.9, adult Start:29-May-2018 Instruction Type:Patient Education Patient Instructions Indication:BMI 22.0-22.9, adult Start:29-May-2018 Instruction Type:Provider Instructions for Treatment How to access health informa tion online Indication:BMI 21.0-21.9, adult Start:19-Dec-2017 Instruction Type:Patient Education How to access health informa tion online - Detail Indication:BMI 21.0-21.9, adult Start:19-Dec-2017 Instruction Type:Patient Education Patient Instructions Indication:BMI 21.0-21.9, adult Start:19-Dec-2017 Instruction Type:Provider Instructions for Treatment How to access health informa tion online Indication:Non-smoker Start:09-May-2017 Instruction Type:Patient Education How to access health informa tion online - Detail Indication:Non-smoker Start:09-May-2017 Instruction Type:Patient Education Patient Instructions Indication:Non-smoker Start:09-May-2017 Instruction Type:Provider Instructions for Treatment How to access health informa tion online Indication:Body mass index (BMI) 23.0-23.9, adult Start:04-Nov-2016 Instruction Type:Patient Education How to access health informa tion online - Detail Indication:Body mass index (BMI) 23.0-23.9, adult Start:04-Nov-2016 Instruction Type:Patient Education Patient Instructions Indication:Body mass index (BMI) 23.0-23.9, adult Start:04-Nov-2016 Instruction Type:Provider Instructions for Treatment How to access health informa tion online Indication:Non-smoker Start:31-May-2016 Instruction Type:Patient Education How to access health informa tion online - Detail Indication:Non-smoker Start:31-May-2016 Instruction Type:Patient Education Patient Instructions Indication:Non-smoker Start:31-May-2016 Instruction Type:Provider Instructions for Treatment How to access health informa tion online Indication:Hyperlipidemia, unspecified Start:01-Dec-2015 Instruction Type:Patient Education How to access health informa tion online - Detail Indication:Hyperlipidemia, unspecified Start:01-Dec-2015 Instruction Type:Patient Education Patient Instructions Indication:Hyperlipidemia, unspecified Start:01-Dec-2015 Instruction Type:Provider Instructions for Treatment How to access health informa tion online Indication:Hypertension, benign Start:02-Jun-2015 Instruction Type:Patient Education How to access health informa tion online - Detail Indication:Hypertension, benign Start:02-Jun-2015 Instruction Type:Patient Education Patient Instructions Indication:Hypertension, benign Start:02-Jun-2015 Instruction Type:Provider Instructions for Treatment Patient Instructions Indication:Hyperlipidemia, unspecified Start:06-Oct-2013 Instruction Type:Provider Instructions for Treatment Patient Instructions Indication:FAMILY HISTORY OF ISCHEMIC HEART DISEASE Start:29-May-2012 Instruction Type:Provider Instructions for Treatment Patient Instructions Indication:Palpitations Start:22-May-2012 Instruction Type:Provider Instructions for Treatment Name Dates Details Patient Instructions Indication:Hypertension, benign Start:23-Jun-2020 Instruction Type:Provider Instructions for Treatment How to Access Health Informa tion Online using Patient Portal and [employer] Apps Indication:Hypertension, benign Start:23-Jun-2020 Instruction Type:Patient Education How to access health informa tion online Indication:Non-smoker Start:17-Dec-2019 Instruction Type:Patient Education How to access health informa tion online - Detail Indication:Non-smoker Start:17-Dec-2019 Instruction Type:Patient Education Patient Instructions Indication:Non-smoker Start:17-Dec-2019 Instruction Type:Provider Instructions for Treatment How to access health informa tion online Indication:BMI 26.0-26.9,adult Start:15-Jan-2019 Instruction Type:Patient Education How to access health informa tion online - Detail Indication:BMI 26.0-26.9,adult Start:15-Jan-2019 Instruction Type:Patient Education Patient Instructions Indication:BMI 26.0-26.9,adult Start:15-Jan-2019 Instruction Type:Provider Instructions for Treatment How to access health informa tion online Indication:BMI 22.0-22.9, adult Start:29-May-2018 Instruction Type:Patient Education How to access health informa tion online - Detail Indication:BMI 22.0-22.9, adult Start:29-May-2018 Instruction Type:Patient Education Patient Instructions Indication:BMI 22.0-22.9, adult Start:29-May-2018 Instruction Type:Provider Instructions for Treatment How to access health informa tion online Indication:BMI 21.0-21.9, adult Start:19-Dec-2017 Instruction Type:Patient Education How to access health informa tion online - Detail Indication:BMI 21.0-21.9, adult Start:19-Dec-2017 Instruction Type:Patient Education Patient Instructions Indication:BMI 21.0-21.9, adult Start:19-Dec-2017 Instruction Type:Provider Instructions for Treatment How to access health informa tion online Indication:Non-smoker Start:09-May-2017 Instruction Type:Patient Education How to access health informa tion online - Detail Indication:Non-smoker Start:09-May-2017 Instruction Type:Patient Education Patient Instructions Indication:Non-smoker Start:09-May-2017 Instruction Type:Provider Instructions for Treatment How to access health informa tion online Indication:Body mass index (BMI) 23.0-23.9, adult Start:04-Nov-2016 Instruction Type:Patient Education How to access health informa tion online - Detail Indication:Body mass index (BMI) 23.0-23.9, adult Start:04-Nov-2016 Instruction Type:Patient Education Patient Instructions Indication:Body mass index (BMI) 23.0-23.9, adult Start:04-Nov-2016 Instruction Type:Provider Instructions for Treatment How to access health informa tion online Indication:Non-smoker Start:31-May-2016 Instruction Type:Patient Education How to access health informa tion online - Detail Indication:Non-smoker Start:31-May-2016 Instruction Type:Patient Education Patient Instructions Indication:Non-smoker Start:31-May-2016 Instruction Type:Provider Instructions for Treatment How to access health informa tion online Indication:Hyperlipidemia, unspecified Start:01-Dec-2015 Instruction Type:Patient Education How to access health informa tion online - Detail Indication:Hyperlipidemia, unspecified Start:01-Dec-2015 Instruction Type:Patient Education Patient Instructions Indication:Hyperlipidemia, unspecified Start:01-Dec-2015 Instruction Type:Provider Instructions for Treatment How to access health informa tion online Indication:Hypertension, benign Start:02-Jun-2015 Instruction Type:Patient Education How to access health informa tion online - Detail Indication:Hypertension, benign Start:02-Jun-2015 Instruction Type:Patient Education Patient Instructions Indication:Hypertension, benign Start:02-Jun-2015 Instruction Type:Provider Instructions for Treatment Patient Instructions Indication:Hyperlipidemia, unspecified Start:06-Oct-2013 Instruction Type:Provider Instructions for Treatment Patient Instructions Indication:FAMILY HISTORY OF ISCHEMIC HEART DISEASE Start:29-May-2012 Instruction Type:Provider Instructions for Treatment Patient Instructions Indication:Palpitations Start:22-May-2012 Instruction Type:Provider Instructions for Treatment Name Dates Details How to access health informa tion online Indication:BMI 22.0-22.9, adult Start:29-May-2018 Instruction Type:Patient Education How to access health informa tion online - Detail Indication:BMI 22.0-22.9, adult Start:29-May-2018 Instruction Type:Patient Education Patient Instructions Indication:BMI 22.0-22.9, adult Start:29-May-2018 Instruction Type:Provider Instructions for Treatment How to access health informa tion online Indication:BMI 21.0-21.9, adult Start:19-Dec-2017 Instruction Type:Patient Education How to access health informa tion online - Detail Indication:BMI 21.0-21.9, adult Start:19-Dec-2017 Instruction Type:Patient Education Patient Instructions Indication:BMI 21.0-21.9, adult Start:19-Dec-2017 Instruction Type:Provider Instructions for Treatment How to access health informa tion online Indication:Non-smoker Start:09-May-2017 Instruction Type:Patient Education How to access health informa tion online - Detail Indication:Non-smoker Start:09-May-2017 Instruction Type:Patient Education Patient Instructions Indication:Non-smoker Start:09-May-2017 Instruction Type:Provider Instructions for Treatment How to access health informa tion online Indication:Body mass index (BMI) 23.0-23.9, adult Start:04-Nov-2016 Instruction Type:Patient Education How to access health informa tion online - Detail Indication:Body mass index (BMI) 23.0-23.9, adult Start:04-Nov-2016 Instruction Type:Patient Education Patient Instructions Indication:Body mass index (BMI) 23.0-23.9, adult Start:04-Nov-2016 Instruction Type:Provider Instructions for Treatment How to access health informa tion online Indication:Non-smoker Start:31-May-2016 Instruction Type:Patient Education How to access health informa tion online - Detail Indication:Non-smoker Start:31-May-2016 Instruction Type:Patient Education Patient Instructions Indication:Non-smoker Start:31-May-2016 Instruction Type:Provider Instructions for Treatment How to access health informa tion online Indication:Hyperlipidemia, unspecified Start:01-Dec-2015 Instruction Type:Patient Education How to access health informa tion online - Detail Indication:Hyperlipidemia, unspecified Start:01-Dec-2015 Instruction Type:Patient Education Patient Instructions Indication:Hyperlipidemia, unspecified Start:01-Dec-2015 Instruction Type:Provider Instructions for Treatment How to access health informa tion online Indication:Hypertension, benign Start:02-Jun-2015 Instruction Type:Patient Education How to access health informa tion online - Detail Indication:Hypertension, benign Start:02-Jun-2015 Instruction Type:Patient Education Patient Instructions Indication:Hypertension, benign Start:02-Jun-2015 Instruction Type:Provider Instructions for Treatment Patient Instructions Indication:Hyperlipidemia, unspecified Start:06-Oct-2013 Instruction Type:Provider Instructions for Treatment Patient Instructions Indication:FAMILY HISTORY OF ISCHEMIC HEART DISEASE Start:29-May-2012 Instruction Type:Provider Instructions for Treatment Patient Instructions Indication:Palpitations Start:22-May-2012 Instruction Type:Provider Instructions for Treatment Name Dates Details How to access health informa tion online Indication:BMI 26.0-26.9,adult Start:15-Jan-2019 Instruction Type:Patient Education How to access health informa tion online - Detail Indication:BMI 26.0-26.9,adult Start:15-Jan-2019 Instruction Type:Patient Education Patient Instructions Indication:BMI 26.0-26.9,adult Start:15-Jan-2019 Instruction Type:Provider Instructions for Treatment How to access health informa tion online Indication:BMI 22.0-22.9, adult Start:29-May-2018 Instruction Type:Patient Education How to access health informa tion online - Detail Indication:BMI 22.0-22.9, adult Start:29-May-2018 Instruction Type:Patient Education Patient Instructions Indication:BMI 22.0-22.9, adult Start:29-May-2018 Instruction Type:Provider Instructions for Treatment How to access health informa tion online Indication:BMI 21.0-21.9, adult Start:19-Dec-2017 Instruction Type:Patient Education How to access health informa tion online - Detail Indication:BMI 21.0-21.9, adult Start:19-Dec-2017 Instruction Type:Patient Education Patient Instructions Indication:BMI 21.0-21.9, adult Start:19-Dec-2017 Instruction Type:Provider Instructions for Treatment How to access health informa tion online Indication:Non-smoker Start:09-May-2017 Instruction Type:Patient Education How to access health informa tion online - Detail Indication:Non-smoker Start:09-May-2017 Instruction Type:Patient Education Patient Instructions Indication:Non-smoker Start:09-May-2017 Instruction Type:Provider Instructions for Treatment How to access health informa tion online Indication:Body mass index (BMI) 23.0-23.9, adult Start:04-Nov-2016 Instruction Type:Patient Education How to access health informa tion online - Detail Indication:Body mass index (BMI) 23.0-23.9, adult Start:04-Nov-2016 Instruction Type:Patient Education Patient Instructions Indication:Body mass index (BMI) 23.0-23.9, adult Start:04-Nov-2016 Instruction Type:Provider Instructions for Treatment How to access health informa tion online Indication:Non-smoker Start:31-May-2016 Instruction Type:Patient Education How to access health informa tion online - Detail Indication:Non-smoker Start:31-May-2016 Instruction Type:Patient Education Patient Instructions Indication:Non-smoker Start:31-May-2016 Instruction Type:Provider Instructions for Treatment How to access health informa tion online Indication:Hyperlipidemia, unspecified Start:01-Dec-2015 Instruction Type:Patient Education How to access health informa tion online - Detail Indication:Hyperlipidemia, unspecified Start:01-Dec-2015 Instruction Type:Patient Education Patient Instructions Indication:Hyperlipidemia, unspecified Start:01-Dec-2015 Instruction Type:Provider Instructions for Treatment How to access health informa tion online Indication:Hypertension, benign Start:02-Jun-2015 Instruction Type:Patient Education How to access health informa tion online - Detail Indication:Hypertension, benign Start:02-Jun-2015 Instruction Type:Patient Education Patient Instructions Indication:Hypertension, benign Start:02-Jun-2015 Instruction Type:Provider Instructions for Treatment Patient Instructions Indication:Hyperlipidemia, unspecified Start:06-Oct-2013 Instruction Type:Provider Instructions for Treatment Patient Instructions Indication:FAMILY HISTORY OF ISCHEMIC HEART DISEASE Start:29-May-2012 Instruction Type:Provider Instructions for Treatment Patient Instructions Indication:Palpitations Start:22-May-2012 Instruction Type:Provider Instructions for Treatment Summary Purpose Family History No Family History Records FoundNo Family History Records FoundNo Family History Records Found No data available for this section No Family History Records FoundNo Family History Records Found No data available for this section No Family History Records Found Advance Directives No Advanced Directives Records Found Name Dates Details Immunization Registry [place] - Effective on 06/23/2020. Expiration date unspecified Effective:23-Jun-2020 Name Dates Details Immunization Registry [place] - Effective on 06/23/2020. Expiration date unspecified Effective:23-Jun-2020 Name Dates Details Immunization Registry [place] - Effective on 06/23/2020. Expiration date unspecified Effective:23-Jun-2020 Name Dates Details Immunization Registry [place] - Effective on 06/23/2020. Expiration date unspecified Effective:23-Jun-2020 Name Dates Details Immunization Registry [place] - Effective on 06/23/2020. Expiration date unspecified Effective:23-Jun-2020 Name Dates Details Immunization Registry [place] - Effective on 06/23/2020. Expiration date unspecified Effective:23-Jun-2020 Name Dates Details Immunization Registry [place] - Effective on 06/23/2020. Expiration date unspecified Effective:23-Jun-2020 Name Dates Details Immunization Registry [place] - Effective on 06/23/2020. Expiration date unspecified Effective:23-Jun-2020 Advance Directive Response Recorded Date/ Time Advance Directives No February 21, 2015 2:31pm Living Will No April 29 1:01pm Power of Centrifugal Casting Machine Operator No April 29, 2021 1:01pm Name Dates Details Immunization Registry [place] - Effective on 06/23/2020. Expiration date unspecified Effective:23-Jun-2020 Name Dates Details Immunization Registry [place] - Effective on 06/23/2020. Expiration date unspecified Effective:23-Jun-2020 Name Dates Details Immunization Registry [place] - Effective on 06/23/2020. Expiration date unspecified Effective:23-Jun-2020 Name Dates Details Immunization Registry [place] - Effective on 06/23/2020. Expiration date unspecified Effective:23-Jun-2020 Name Dates Details Immunization Registry [place] - Effective on 06/23/2020. Expiration date unspecified Effective:23-Jun-2020 Advance Directive Response Recorded Date/ Time Advance Directives No February 21, 2015 3:31pm Living Will No April 29 2:01pm Power of Centrifugal Casting Machine Operator No April 29, 2021 2:01pm Name Dates Details Immunization Registry [place] - Effective on 06/23/2020. Expiration date unspecified Effective:23-Jun-2020 Name Dates Details Immunization Registry [place] - Effective on 06/23/2020. Expiration date unspecified Effective:23-Jun-2020 Name Dates Details Immunization Registry [place] - Effective on 06/23/2020. Expiration date unspecified Effective:23-Jun-2020 Name Dates Details Immunization Registry [place] - Effective on 06/23/2020. Expiration date unspecified Effective:23-Jun-2020 Advance Directive Response Recorded Date/ Time Living Will No April 29 2:01pm Power of Centrifugal Casting Machine Operator No April 29, 2021 2:01pm Advance Directives No February 21, 2015 3:31pm Advance Directive Response Recorded Date/ Time Living Will No April 29 2:01pm Do you have a Healthcare Power of Centrifugal Casting Machine Operator? 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 Reason for Visit Encounter for routin e gynecological examination Chief Complaint Admit Date COUGH, SORE THROAT June 27, 2024 1:42pm 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) September 08, 2024 8:02am SCREENING September 21, 2024 7:1 2am Reason for Visit Admit Date [facility]:42[facility] Encounter for routine gynecological exam ination September 08, 2024 8:02am Chief Complaint Admit Date COUGH, SORE THROAT June 27, 2024 1:42pm 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) September 08, 2024 8:02am SCREENING September 21, 2024 7:1 2am S/O- October 08, 2024 7:0 8am Additional Source Comments INFORMATION SOURCE (unrecogn ized section and content) DATE CREATED AUTHOR 07/15/2019 [facility] DATE CREATED AUTHOR AUTHOR'S ORGANIZ ATION 05/10/2020 [facility] DATE CREATED AUTHOR AUTHOR'S ORGANIZ ATION 10/26/2022 [facility] DATE CREATED AUTHOR AUTHOR'S ORGANIZ ATION 05/13/2023 [facility] ([place] DATE CREATED AUTHOR AUTHOR'S ORGANIZ ATION 07/22/2024 [facility] DATE CREATED AUTHOR AUTHOR'S ORGANIZ ATION 10/16/2024 [facility] Goals (unrecognized section and content) Goals may be documented in a n alternate sectionGoals may be documented in an alternate sectionGoals may be documented in an alternate sectionGoals may be documented in an alternate section No data available for this sectionGoals may be documented in an alternate sectionGoals may be documented in an alternate sectionGoals may be documented in an alternate sectionGoals may be documented in an alternate section No data available for this sectionGoals may be documented in an alternate sectionGoals may be documented in an alternate section Care Teams (unrecognized sec tion and content) Team Status: Active Member Role Status Dates Dr. Gloria Bills , DO Family Provider Active Dr. Gloria Bills , DO Primary Care Provider Active Team Status: Inactive Member Role Status Dates Dr. Gloria Bills , DO Primary Care Pr ovider, Attending Provider, Referring Provider Active Team Status: Inactive Member Role Status Dates Dr. Gloria Bills , DO Primary Care Provider Active Aidee Chappell NP-C Attending Provider Active Team Status: Inactive Member Role Status Dates Dr. Gloria Bills , DO Primary Care Provider Active Dr. Juan José Weiner MD Attending Provider, Referring Provider Active Team Status: Active Member Role Status Dates Dr. Gloria Bills , DO Primary Care Provider Active Dr. Juan José Weiner MD Attending Provider, Referring Provider Active Team Status: Inactive Member Role Status Dates Dr. Gloria Bills , DO Primary Care Provider, Referr ing Provider Active Ngozi Ortega NP, ACADEMIC SUPPORT SPECIALIST-C Attending Provider Active Team Status: Inactive Member Role Status Dates Dr. Gloria Bills DO Primary Care Provider Active Ngozi Ortega ACADEMIC SUPPORT SPECIALIST, ACADEMIC SUPPORT SPECIALIST-C Attending Provider, Referring Provider Active Team Status: Active Member Role Status Dates Dr. Gloria Bills DO Primary Care Provider Active Team Status: Inactive Member Role Status Dates Dr. Gloria Bills DO Primary Care Provider Active Start: June 27, 2024 End: June 27, 2024 Dr. Gloria Bills DO Referring Provider Active Start: June 27, 2024 End: June 27, 2024 Cleveland Blunt ACADEMIC SUPPORT SPECIALIST, ACADEMIC SUPPORT SPECIALIST-C Attending Provider Active S tart: June 27, 2024 End: June 27, 2024 Team Status: Inactive Member Role Status Dates Dr. Gloria Bills DO Primary Care Provider Active Start: September 08, 2024 End: September 08, 2024 Dr. Gloria Bills DO Referring Provider Active Start: September 08, 2024 End: September 08, 2024 Ngozi Ortega ACADEMIC SUPPORT SPECIALIST, ACADEMIC SUPPORT SPECIALIST-C Attending Provider Active Start: September 08, 2024 End: September 08, 2024 Team Status: Inactive Member Role Status Dates Dr. Gloria Bills DO Primary Care Provider Active Start: September 21, 2024 End: September 21, 2024 Ngozi Ortega ACADEMIC SUPPORT SPECIALIST, ACADEMIC SUPPORT SPECIALIST-C Attending Provider Active Start: September 21, 2024 End: September 21, 2024 Ngozi Ortega ACADEMIC SUPPORT SPECIALIST, ACADEMIC SUPPORT SPECIALIST-C Referring Provider Active Start: September 21, 2024 End: September 21, 2024 Team Status: Inactive Member Role Status Dates Dr. Gloria Bills DO Primary Care Provider Active Start: October 08, 2024 End: October 08, 2024 Dr. Juan José Weiner MD Attending Provider Active Start: October 08, 2024 End: October 08, 2024 Dr. Juan José Weiner MD Referring Provider Active Start: October 08, 2024 End: October 08, 2024 FOR RECORDS PERTAINING TO PATIENTS WHO ARE OR HAVE BEEN ENROLLED IN A CHEMICAL DEPENDENCY/SUBSTANCEABUSE PROGRAM, SOME INFORMATION MAY BE OMITTED. This clinical summary was aggregated from multiple sources. Caution should be exercised in using it in the provision of clinical care. This summary normalizes information from multiple sources, and as a consequence, information in this document may materially change the coding, format and clinical context of patient data. In addition, data may be omitted in some cases. CLINICAL DECISIONS SHOULD BE BASED ON THE PRIMARY CLINICAL RECORDS. [facility] [employer] [facility]. provides no warranty or guarantee of the accuracy or completeness of information in this document.
== END | disposition home or self-care (01) ==
LOC: LABSPEC 09:43
PROVIDERS: PCP Internal Medicine; Referring Provider Internal Medicine Gastroenterology; Visit Provider Internal Medicine Gastroenterology
DX: Z00.00 Encounter for general adult medical examination without abnormal findings (principal)